=== PATIENT | female | born 1935 | race African-American/Black ===

== ENCOUNTER 2016-11-28 12:04 | Emergency (ER) | payer MEDICAID, OTHER ==
[~2016-11-28] VITALS: Ht 170.2 cm; Wt 90.7 kg
[2016-11-28 12:03] VITALS: BP 181/77
[~2016-11-28 12:04] MED LIST: ACETAMINOPHEN-1 EAC1 ORAL; ACTOS45 MG ORAL; AGGRENOX 25 MG1 EACH ORAL; AGGRENOX1 CAP ORAL; AMBIEN5 MG ORAL; ASCORBIC ACID500 MG ORAL; BENAZEPRIL HCL40 MG ORAL; CARAFATE1 G1 ORAL; CRESTOR10 M1 ORAL; DOCUSATE SODIU100 MG ORAL; FOLIC ACID1 MG ORAL; GLIMEPIRIDE2 MG ORAL; GLUCOPHAGE1000 MG ORAL; LEVEMIR FL100 UNIT/1 SUBQ; MIRALAX17 G2 ORAL; NEURONTIN100 MG ORAL; NORVASC10 MG ORAL; NOVOLOG100 UNIT/3 SUBQ; PANTOPRAZOLE SO20 MG ORAL; POTASSIUM99 M2 PO; REGLAN5 MG PO; RENA-VITE RX T1 EAC1 PO; TRAMADOL HCL50 MG ORAL
[2016-11-28] MEDS ORDERED: MECLIZINE HCL25 MG ORAL (12:12)
[2016-11-28] MEDS ORDERED: CALCIUM 500 +1 EAC6 PO (12:12)
[2016-11-28] MEDS ORDERED: HUMALOG100 UNIT/4 SUBQ (12:12)
[2016-11-28] MEDS ORDERED: CRANBERRY400 MG PO (12:12)
[2016-11-28] MEDS ORDERED: AGGRENOX1 CAP ORAL (12:12)
[2016-11-28] MEDS ORDERED: FERROUS SULFAT325 MG ORAL (12:12)
[2016-11-28] MEDS ORDERED: GERI-KOT8.6 MG PO (12:12)
[2016-11-28] MEDS ORDERED: LEVEMIR100 UNIT/1 SUBQ (12:12)
[2016-11-28] MEDS ORDERED: CATAPRES0.1 MG ORAL (12:12)
[2016-11-28] MEDS ORDERED: ALUM-MAG HYDRO360 ML PO (12:13)
[2016-11-28] MEDS ORDERED: MIRALAX17 G2 ORAL (12:13)
[2016-11-28 12:14] VITALS: BP 163/58
[2016-11-28 13:00] VITALS: BP 143/54
[2016-11-28 13:09] VITALS: BP 143/54
--- NOTE | 2016-11-30 07:39 | Emergency Room Report ---
History of Present Illness General Chief Complaint: Hypertension Source: Patient, Medical Record Present Illness HPI [id number] BIBEMS from [facility] for asymptomatic elevated BP. Patient has known HTN At facility, BP allegedly >200/100 Was given 0.1mg clonidine then sent to ED Here, BP is 150/80 Patient herself has no complaints Denies headache, chest pain, flank pain, abd pain, fever/chills, urinary complaints Allergies: Coded Allergies: PENICILLINS (Unverified Allergy, Mild, 12/04/12) Patient History Past Medical History: see triage record, old chart reviewed, HTN Past Surgical History: none Pertinent Family History: none Social History: Denies: alcohol use, drug use, smoking Now: No Immunizations: UTD Reviewed Nursing Documentation: PMH: Agreed, PSxH: Agreed Nursing Documentation-PMH Past Medical History: No History, Except For Hx Cardiac Problems: Yes Hx Hypertension: Yes Hx Diabetes: Yes Hx Cancer: No Hx Gastrointestinal Problems: Yes Hx Neurological Problems: Yes Review of Systems All Other Systems: negative except mentioned in HPI Physical Exam Vital Signs Date Time Temp Pulse Resp B/P Pulse Ox O2 Delivery O2 Flow Rate FiO2 11/28/16 11:58 97.9 67 20 181/77 100 Room Air Sp02 EP Interpretation: reviewed, normal General Appearance: normal inspection, well appearing, no apparent distress, alert, GCS 15, non-toxic Head: normocephalic, atraumatic Eyes: bilateral eye EOMI, bilateral eye PERRL ENT: normal ENT inspection, hearing grossly normal, normal voice Neck: normal inspection, full range of motion, supple, no bony tend Respiratory: normal inspection, lungs clear, normal breath sounds, no respiratory distress, no retraction, no wheezing Cardiovascular #1: regular rate, rhythm, no edema Gastrointestinal: normal inspection, normal bowel sounds, non tender, soft, no guarding, no hernia Genitourinary: no CVA tenderness Musculoskeletal: normal inspection, back normal, normal range of motion, Ankita' s Sign negative Neurologic: normal inspection, alert, oriented x3, responsive, centrifugal drier operator III-XII nml as tested, motor strength/tone normal, speech normal Psychiatric: normal inspection, judgement/insight normal, mood/affect normal Skin: normal inspection, normal color, no rash Lymphatic: normal inspection Medical Decision Making Diagnostic Impression: Primary Impression: Hypertension Qualified Codes: I10 - Essential (primary) hypertension ER Course Asymptomatic HTN - VS showed improved and maintained normal BP here after SNF gave clonidine - Patient is asymptomatic - Low suspicion for acute CVA, HI or other signs of end-organ damage at this time - Patient does not warrant additional lab, imaging, or admission for single elevation/spike of known HTN at this time - DC back to SNF - Informed PMD Dr Mesa patient going back to SNF for outpatient management Last Vital Signs Date Time Temp Pulse Resp B/P Pulse Ox O2 Delivery O2 Flow Rate FiO2 11/28/16 13:09 97.9 66 16 143/54 100 Room Air Status: improved Disposition: XFER SNF Condition: Improved Referrals: Krzysztof Schneider MD (PCP) Additional Instructions: - BP is 160/63 - Follow up with primary care doctor for management of asymptomatic HTN OSBALDO GARCIA M.D. Nov 30, 2016 07:39
== END 2016-11-28 13:09 ==
LOC: EDBD 12:04 → EMR 12:20
DX: I10 Essential (primary) hypertension (principal); E11.9 Type 2 diabetes mellitus without complications; Z88.0 Allergy status to penicillin
CPT/HCPCS: 99283

== ENCOUNTER 2018-03-08 09:50 | Inpatient (IN) | payer MEDICARE, MEDICAID ==
[~2018-03-08] VITALS: Ht 177.8 cm; Wt 82.1 kg
[2018-03-08] VITALS (25 sets, daily range): BP systolic 66–124; BP diastolic 32–60
[~2018-03-08 09:50] MED LIST changes: +ALUM-MAG HYDRO360 ML PO; +CALCIUM 500 +1 EAC6 PO; +CARAFATE1 G1 GT; -CARAFATE1 G1 ORAL; +CATAPRES0.1 MG GT; +CRANBERRY400 MG PO; +FERROUS SULFAT325 MG ORAL; +GERI-KOT8.6 MG PO; +HUMALOG100 UNIT/4 SUBQ; +LEVEMIR100 UNIT/1 SUBQ; +MECLIZINE HCL25 MG ORAL; +NEURONTIN100 MG GT; -NEURONTIN100 MG ORAL; +NORVASC10 MG GT; -NORVASC10 MG ORAL; +PANTOPRAZOLE SO20 MG GT; -PANTOPRAZOLE SO20 MG ORAL
[2018-03-08] MEDS: Cefepime HCl 1 GM in NS 55 ML IV SCH ×2 (10:11→10:13)
--- NOTE | 2018-03-08 10:13 | Emergency Room Report ---
History of Present Illness General Chief Complaint: Altered Level of Consciousness Source: Medical Record, EMS Present Illness HPI Patient presents via EMS. Hot, hypotensive and tachypnea. Has shaver. Ill for 1 day. No vomiting. Fluid bolus in field with some improvement. Patient full code. Has PEG and indwelling shaver. No other history available. Was seen in November 2016. Allergies: Coded Allergies: PENICILLINS (Unverified Allergy, Mild, 12/04/12) Patient History Limited by: medical condition Past Medical History: see triage record, old chart reviewed Past Surgical History: charlene, hysterectomy, other - cataract surgery Social History Narrative at [facility] Reviewed Nursing Documentation: PMH: Agreed; PSxH: Agreed Nursing Documentation-PM Past Medical History: No History, Except For Hx Cardiac Problems: No - hypokalemia, dehydration, hyperlipidemia Hx Hypertension: Yes Hx Diabetes: Yes Hx Cancer: No Hx Gastrointestinal Problems: No - dysphagia, g-tube Hx Dialysis: No - chronic kidney failure Hx Neurological Problems: No - muscle weakness, encephalopathy 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 Hx Seizures: Yes Review of Systems All Other Systems: limited Physical Exam Vital Signs Date Time Temp Pulse Resp B/P (MAP) Pulse Ox O2 Delivery O2 Flow Rate FiO2 03/08/18 09:50 104 22 105/50 100 Non-Rebreather 15.0 Sp02 EP Interpretation: reviewed, normal General Appearance: moderate distress, lethargic Eyes: bilateral eye normal inspection, bilateral eye PERRL ENT: dry mucus membranes - dry mucoid buildup in mouth Respiratory: respiratory distress, accessory muscle use, other - tachypnea with poor tidal volume Cardiovascular #1: tachycardia Cardiovascular #2: 2+ radial (L) Gastrointestinal: decreased bowel sounds, scaphoid Genitourinary: other - shaver with pus Musculoskeletal: other - atrophy Neurologic: other - minimally responsive but opens eyes to voice Psychiatric: other - stupor Skin: warm/dry - hot Procedures Critical Care Time Critical Care Time Total Critical Care Time: 120 min bedside evaluation and treatment excludes procedures (EKG, intubation and CVP). Reason for critical care: severe sepsis, respiratory failure, hypotension Possible complications: hypotension, hypertension, CO, shock, arrhythmias, metabolic acidosis, end organ damage, respiratory failure. Interventions: intubation, CVP, pressors, fluid resuscitation, antibiotics, CVP , discussion of level of care with family, vent changes Course:Patient with ALOC and hot. Fluid resuscitation begun. Intubated as pre- resp arrest. Antibiotics begun. Discussed level of care with family Still hypotensive after initial fluid resuscitation - CVP and possible pressors. Levophed begun. Responding with adequate BP. Improved work of breathing with vent. Admit ICU. Consultations: nursing staff, EMS, family, RT, admitting MD, critical care MD Performed by: Dr. Kraft Tolerated well condition = critical Central Line Central Line : Consent: Emergent Central Line Lumen: triple Maximal Sterile Barrier Tech: yes cap, yes mask, yes sterile gown, yes sterile gloves, yes large sterile sheet, yes hand hygiene, yes chlorhexidine prep Central Line Postion: femoral (R) Anesthesia: Lidocaine Central Line Post Position: sutured, good blood return Attempts: One Patient Tolerated: Well Complications: None Progress Ultrasound EBL 3 ml Intubation Intubation : Consent: Emergent Intubation Method: orotracheal Tube Size (cm): 7.5 Medications: Other - none Breath Sounds after Intubation: equal Intubation Complications: no complications Post Intubation Xray: Yes Attempts: One Patient Tolerated: Well Complications: None Medical Decision Making Diagnostic Impression: Primary Impression: Severe sepsis Additional Impressions: UTI (urinary tract infection) Qualified Codes: T83.511A - Infection and inflammatory reaction due to indwelling urethral catheter, initial encounter; N39.0 - Urinary tract infection , site not specified Respiratory failure Qualified Codes: J96.00 - Acute respiratory failure, unspecified whether with hypoxia or hypercapnia NSTEMI (non-ST elevated myocardial infarction) Renal failure (ARF), acute on chronic Qualified Codes: N17.9 - Acute kidney failure, unspecified; N18.4 - Chronic kidney disease, stage 4 (severe) PEG (percutaneous endoscopic gastrostomy) status Anemia Qualified Codes: D64.9 - Anemia, unspecified Hyperglycemia Metabolic acidosis ER Course Patient presents with dyspnea, turbid urine fever and respiratory distress. The patient is obviously septic. Due to the amount of work of breathing at this time I the patient needs to be intubated immediately. In addition to that sepsis resuscitation will be started. Other parts of differential are acute myocardial infarction, volume depletion, pneumonia and UTI. The patient will have 30kg instills and also antibiotics appropriate to cover both lung and urine. EKG without injury. CXR clear with intubation. CBC with elevated WBC, anemia. CMP with renal failure. Troponin +. Elevated BNP. Transient improvement with fluids and intubation. Discussion with family regarding level of care. Want everything done. ABG with metabolic acidosis. Vent O2 deareased. After bolus still hypotensive. CVP begun. Levophed started. 13:20 (Sepsis re -evaluation) Improved BP. Discussed with Dr. Ortiz, Dr. Gan. Admit ICU. Laboratory Tests Test 03/08/18 10:00 03/08/18 11:04 03/08/18 11:46 03/08/18 16:00 White Blood Count 14.4 K/UL (4.8-10.8) H Red Blood Count 3.39 M/UL (4.20-5.40) L Hemoglobin 9.1 G/DL (12.0-16.0) L Hematocrit 28.5 % (37.0-47.0) L Mean Corpuscular Volume 84 FL (80-99) Mean Corpuscular Hemoglobin 26.9 PG (27.0-31.0) L Mean Corpuscular Hemoglobin Concent 32.0 G/DL (32.0-36.0) Red Cell Distribution Width 13.7 % (11.6-14.8) Platelet Count 169 K/UL (150-450) Mean Platelet Volume 10.3 FL (6.5-10.1) H Neutrophils (%) (Auto) 80.0 % (45.0-75.0) H Lymphocytes (%) (Auto) 9.1 % (20.0-45.0) L Monocytes (%) (Auto) 10.1 % (1.0-10.0) H Eosinophils (%) (Auto) 0.0 % (0.0-3.0) Basophils (%) (Auto) 0.8 % (0.0-2.0) Prothrombin Time 12.0 SEC (9.30-11.50) H Prothrombin Time INR 1.1 (0.9-1.1) PTT 48 SEC (23-33) H Sodium Level 141 MMOL/L (136-145) Potassium Level 3.5 MMOL/L (3.5-5.1) Chloride Level 109 MMOL/L (98-107) H Carbon Dioxide Level 17 MMOL/L (21-32) L Anion Gap 15 mmol/L (5-15) Blood Urea Nitrogen 126 mg/dL (7-18) H Creatinine 4.3 MG/DL (0.55-1.30) H Estimate Glomerular Filtration Rate mL/min (>60) Glucose Level 296 MG/DL (74-106) H Lactic Acid Level 1.80 mmol/L (0.4-2.0) 2.00 mmol/L (0.4-2.0) Calcium Level 8.4 MG/DL (8.5-10.1) L Total Bilirubin 0.2 MG/DL (0.2-1.0) Aspartate Amino Transferase (AST) 66 U/L (15-37) H Alanine Aminotransferase (ALT) 125 U/L (12-78) H Alkaline Phosphatase 159 U/L (46-116) H Total Creatine Kinase 253 U/L (26-308) Troponin I 0.271 ng/mL (0.000-0.056) 0.437 ng/mL (0.000-0.056) Pro-B-Type Natriuretic Peptide 58814 pg/mL (0-125) H Total Protein 5.9 G/DL (6.4-8.2) L Albumin 1.6 G/DL (3.4-5.0) L Globulin 4.3 g/dL Albumin/Globulin Ratio 0.4 (1.0-2.7) L Lipase 122 U/L (73-393) Arterial Blood pH 7.441 (7.350-7.450) Arterial Blood Partial Pressure CO2 17.6 mmHg (35.0-45.0) *L Arterial Blood Partial Pressure O2 188.8 mmHg (75.0-100.0) H Arterial Blood HCO3 11.7 mmol/L (22.0-26.0) *L Arterial Blood Oxygen Saturation 99.0 % (95-100) Arterial Blood Base Excess -11.0 (-2-2) *L Michael Test Positive Urine Color Brown Urine Appearance Very cloudy Urine pH 5 (4.5-8.0) Urine Specific [place] 1.020 (1.005-1.035) Urine Protein 3+ (NEGATIVE) H Urine Glucose (UA) Negative (NEGATIVE) Urine Ketones Negative (NEGATIVE) Urine Blood 5+ (NEGATIVE) H Urine Nitrite Negative (NEGATIVE) Urine Bilirubin Negative (NEGATIVE) Urine Urobilinogen Normal MG/DL (0.0-1.0) Urine Leukocyte Esterase 3+ (NEGATIVE) H Urine RBC 40-60 /HPF (0 - 2) H Urine WBC Tntc /HPF (0 - 2) H Urine Squamous Epithelial Cells Occasional /LPF Urine Transitional Epithelial Cells /LPF (NONE) Urine Bacteria Many /HPF (NONE) H Hemoglobin A1c 9.3 % (4.3-6.0) H Thyroid Stimulating Hormone (TSH) 1.261 uiU/mL (0.358-3.740) Cortisol Pending Test 03/08/18 17:39 Arterial Blood pH 7.390 (7.350-7.450) Arterial Blood Partial Pressure CO2 24.5 mmHg (35.0-45.0) *L Arterial Blood Partial Pressure O2 156.2 mmHg (75.0-100.0) H Arterial Blood HCO3 14.8 mmol/L (22.0-26.0) *L Arterial Blood Oxygen Saturation 98.5 % (95-100) Arterial Blood Base Excess -8.7 (-2-2) L Michael Test Positive EKG Diagnostic Results Rate: tachycardiac Rhythm: other - a fib ST Segments: no acute changes - RBBB Rhythm Strip Diag. Results EP Interpretation: yes Rhythm: no PVC's, no ectopy, other - A fib rapid rate Chest X-Ray Diagnostic Results Chest X-Ray Diagnostic Results : Chest X-Ray Ordered: Yes # of Views/Limited/Complete: 1 View Indication: Other EP Interpretation: Yes Interpretation: no consolidation, no effusion, no pneumothorax, other - ET good placement Impression: Other Electronically Signed by: Brian Kraft MD Last Vital Signs Date Time Temp Pulse Resp B/P (MAP) Pulse Ox O2 Delivery O2 Flow Rate FiO2 03/08/18 09:50 104 22 105/50 100 Non-Rebreather 15.0 Status: improved Disposition: ADMITTED INPATIENT Condition: Critical Brian Kraft MD Mar 08, 2018 10:13
[2018-03-08 10:21] LABS: BASOPHILS % (AUTO) 0.8 % (0.0-2.0); HEMATOCRIT 28.5 % (37.0-47.0); HEMOGLOBIN 9.1 G/DL (12.0-16.0); LYMPHOCYTES % (AUTO) 9.1 % (20.0-45.0); MEAN CORPUSCULAR VOLUME 84 FL (80-99); MONOCYTES % (AUTO) 10.1 % (1.0-10.0); PLATELET COUNT 169 K/UL (150-450); RED BLOOD COUNT 3.39 M/UL (4.20-5.40); RED CELL DISTRIBUTION WIDTH 13.7 % (11.6-14.8); WHITE BLOOD COUNT 14.4 K/UL (4.8-10.8)
[2018-03-08 10:26] LABS: INR 1.1 (0.9-1.1)
[2018-03-08] MEDS ORDERED: ATORVASTATIN CA20 MG GT (10:42)
[2018-03-08] MEDS ORDERED: PRO-STAT LIQUID30 ML GT (10:42)
[2018-03-08] MEDS ORDERED: NEPRO CARB STE237 ML GT (10:42)
[2018-03-08] MEDS ORDERED: COZAAR50 MG ORAL (10:42)
[2018-03-08] MEDS ORDERED: ASPIR 8181 MG GT (10:42)
[2018-03-08] MEDS ORDERED: ACETAMINOPHEN325 M1 GT (10:42)
[2018-03-08] MEDS ORDERED: LEVETIRACE100 MG/1 M GT (10:42)
[2018-03-08] MEDS ORDERED: MULTIVITAMINS1 EA13 GT (10:42)
[2018-03-08] MEDS ORDERED: METOPROLOL TART50 MG ORAL (10:42)
[2018-03-08 11:01] LABS: ANION GAP 15 mmol/L (5-15); BLOOD UREA NITROGEN 126 mg/dL (7-18); CALCIUM 8.4 MG/DL (8.5-10.1); CARBON DIOXIDE 17 MMOL/L (21-32); CHLORIDE 109 MMOL/L (98-107); CREATININE 4.3 MG/DL (0.55-1.30); POTASSIUM 3.5 MMOL/L (3.5-5.1); SODIUM 141 MMOL/L (136-145)
--- NOTE | 2018-03-08 11:01 | Diagnostic Imaging Report ---
Indication: Dyspnea Comparison: 12/04/2012 A single view chest radiograph was obtained. Findings: Interstitial densities are present at the lung bases likely atelectasis. Mild degree of interstitial edema not excluded. The heart is mildly enlarged. Endotracheal tube is in good position above the isaac. Bones are osteopenic. IMPRESSION: Mild basilar atelectasis. Prominent interstitial markings and vascularity. Some degree of mild CHF not excluded. Correlate clinically. Endotracheal tube in good position
[2018-03-08 11:13] LABS: ALANINE AMINOTRANSFERASE 125 U/L (12-78); ALBUMIN 1.6 G/DL (3.4-5.0); ALBUMIN/GLOBULIN RATIO 0.4 (1.0-2.7); ALKALINE PHOSPHATASE 159 U/L (46-116); ASPARTATE AMINO TRANSFERASE 66 U/L (15-37); BILIRUBIN,TOTAL 0.2 MG/DL (0.2-1.0); CREATINE KINASE 253 U/L (26-308)
[2018-03-08 11:55] LABS: APPEARANCE,URINE VERY CLOUDY; BILIRUBIN, URINE NEGATIVE (NEGATIVE); COLOR,URINE BROWN; GLUCOSE, URINE (UA) NEGATIVE (NEGATIVE); KETONES,URINE NEGATIVE (NEGATIVE); LEUKOCYTE ESTERASE ,URINE 3+ (NEGATIVE); NITRITE,URINE NEGATIVE (NEGATIVE); PH,URINE 5 (4.5-8.0); PROTEIN,URINE 3+ (NEGATIVE); UROBILINOGEN,URINE NORMAL MG/DL (0.0-1.0)
[2018-03-08] MEDS: Vancomycin 1 GM in NS 275 ML IV ONE ×2 (13:16→14:10)
--- NOTE | 2018-03-08 15:01 | Pulmonolgy Critical Care Note ---
Critical Care - Asmt/Plan Problems: (1) shelter resident (2) Anemia (3) PEG (percutaneous endoscopic gastrostomy) status (4) Seizure disorder (5) CKD (chronic kidney disease) (6) MARK (acute kidney injury) (7) Severe sepsis (8) UTI (urinary tract infection) (9) Respiratory failure (10) NSTEMI (non-ST elevated myocardial infarction) Assessment/Plan: ASSESSMENT: * SIRS/SEPSIS * Shock, likely septic * VDRF * MSOF * MARK on CKD * Abnormal LFT's * NSTEMI, likely demand ischemia * Mild PVC on CXR & elevated BNP but clinically appears dry * ? ADHF * Sz DO * NHR * Bedbound @ baseline * Anemia * S/P GT PLAN: * Admit to ICU * Continue ventilatory support, AC 14 VC 450 PEEP 5, FiO2 40 * Check ABG, adjust vent accordingly * PRN HHN's * Titrate NE to keep MAP > 60 * Monitor volumes, gentle IVF hydration * Monitor renal function, may need HD * Trend ECG/trop * TTE * Cardiology evaluation * Start Vancomycin & Zosyn, F/U Cx's * F/U CX's * Check cortisol, TSH * NPO, hold TF's * Reconcile home meds * Continue AED's * DVT Px: Hep SQ * FC CCT 100 Critical Care - Objective Last 24 Hour Vital Signs Date Time Temp Pulse Resp B/P (MAP) Pulse Ox O2 Delivery O2 Flow Rate FiO2 03/08/18 13:40 104/58 03/08/18 13:40 98.3 101 18 104/58 100 Mechanical Ventilator 15.0 40 03/08/18 13:35 84/47 03/08/18 13:30 98.3 101 18 85/48 100 Mechanical Ventilator 15.0 40 03/08/18 13:30 85/48 03/08/18 13:25 75/41 03/08/18 13:12 107 17 40 03/08/18 13:00 98.0 96 16 86/42 100 Mechanical Ventilator 15.0 45 03/08/18 12:30 98.0 101 16 92/34 100 Mechanical Ventilator 15.0 45 03/08/18 11:57 98.0 101 16 86/42 100 Mechanical Ventilator 15.0 45 03/08/18 11:53 106 16 45 03/08/18 10:54 98 16 93/35 100 Mechanical Ventilator 15.0 50 03/08/18 10:24 121 16 Mechanical Ventilator 50 03/08/18 10:18 111 16 50 03/08/18 10:05 15.0 50 03/08/18 10:00 111 16 Mechanical Ventilator 15.0 50 03/08/18 10:00 111 16 66/32 100 Mechanical Ventilator 15.0 50 03/08/18 09:50 104 22 105/50 100 Non-Rebreather 15.0 Status: other - Intubated, sedated Condition: critical HEENT: atraumatic, normocephalic, other - ETT Lungs: rales - @ bases, o/w CTA Heart: HR/BP unstable Abdomen: soft, non-tender, active bowel sounds, feeding tube Extremities: no C/C/E Micro: Microbiology Date/Time Source Procedure Growth Status 03/08/18 10:20 Rectal Mucosa Received Blood Sugars: BS controlled Critical Care - Subjective ROS Limited/Unobtainable: Yes ICU Day: 1 Intubation Day: 1 Interval Events: 82 F NHR h/o Sz DO, bedbound @ baseline, GT, CKD BIB EMS with AMS Upon arrival to ED BP was borderline and marked respiratory distress, intubated by ERMD W/U thus far suggestive of UROSEPSIS with MSOF ---> MARK on CKD, abnl LFT's and NSTEMI D/W grand-daughter @ bedside, family wants all aggressive measures Condition: critical IV Access: central - R fem CVC EKG Rhythm: Sinus Rhythm FI02: 40 Vent Support Breath Rate: 16 Vent Support Mode: AC Vent Tidal Volume: 550 Sputum Amount: Scant PEEP: 0.0 PIP: 28 Subjective: KARRIE CXR: Mild PVC ET Position: 23 Labs: Laboratory Tests Test 03/08/18 10:00 03/08/18 11:04 03/08/18 11:46 White Blood Count 14.4 K/UL (4.8-10.8) H Red Blood Count 3.39 M/UL (4.20-5.40) L Hemoglobin 9.1 G/DL (12.0-16.0) L Hematocrit 28.5 % (37.0-47.0) L Mean Corpuscular Volume 84 FL (80-99) Mean Corpuscular Hemoglobin 26.9 PG (27.0-31.0) L Mean Corpuscular Hemoglobin Concent 32.0 G/DL (32.0-36.0) Red Cell Distribution Width 13.7 % (11.6-14.8) Platelet Count 169 K/UL (150-450) Mean Platelet Volume 10.3 FL (6.5-10.1) H Neutrophils (%) (Auto) 80.0 % (45.0-75.0) H Lymphocytes (%) (Auto) 9.1 % (20.0-45.0) L Monocytes (%) (Auto) 10.1 % (1.0-10.0) H Eosinophils (%) (Auto) 0.0 % (0.0-3.0) Basophils (%) (Auto) 0.8 % (0.0-2.0) Prothrombin Time 12.0 SEC (9.30-11.50) H Prothromb Time International Ratio 1.1 (0.9-1.1) Activated Partial Thromboplast Time 48 SEC (23-33) H Sodium Level 141 MMOL/L (136-145) Potassium Level 3.5 MMOL/L (3.5-5.1) Chloride Level 109 MMOL/L (98-107) H Carbon Dioxide Level 17 MMOL/L (21-32) L Anion Gap 15 mmol/L (5-15) Blood Urea Nitrogen 126 mg/dL (7-18) H Creatinine 4.3 MG/DL (0.55-1.30) H Estimat Glomerular Filtration Rate mL/min (>60) Glucose Level 296 MG/DL (74-106) H Lactic Acid Level 1.80 mmol/L (0.4-2.0) Calcium Level 8.4 MG/DL (8.5-10.1) L Total Bilirubin 0.2 MG/DL (0.2-1.0) Aspartate Amino Transf (AST/SGOT) 66 U/L (15-37) H Alanine Aminotransferase (ALT/SGPT) 125 U/L (12-78) H Alkaline Phosphatase 159 U/L (46-116) H Total Creatine Kinase 253 U/L (26-308) Troponin I 0.271 ng/mL (0.000-0.056) Pro-B-Type Natriuretic Peptide 88465 pg/mL (0-125) H Total Protein 5.9 G/DL (6.4-8.2) L Albumin 1.6 G/DL (3.4-5.0) L Globulin 4.3 g/dL Albumin/Globulin Ratio 0.4 (1.0-2.7) L Lipase 122 U/L (73-393) Arterial Blood pH 7.441 (7.350-7.450) Arterial Blood Partial Pressure CO2 17.6 mmHg (35.0-45.0) *L Arterial Blood Partial Pressure O2 188.8 mmHg (75.0-100.0) H Arterial Blood HCO3 11.7 mmol/L (22.0-26.0) *L Arterial Blood Oxygen Saturation 99.0 % (95-100) Arterial Blood Base Excess -11.0 (-2-2) *L Michael Test Positive Urine Color Brown Urine Appearance Very cloudy Urine pH 5 (4.5-8.0) Urine Specific [place] 1.020 (1.005-1.035) Urine Protein 3+ (NEGATIVE) H Urine Glucose (UA) Negative (NEGATIVE) Urine Ketones Negative (NEGATIVE) Urine Blood 5+ (NEGATIVE) H Urine Nitrite Negative (NEGATIVE) Urine Bilirubin Negative (NEGATIVE) Urine Urobilinogen Normal MG/DL (0.0-1.0) Urine Leukocyte Esterase 3+ (NEGATIVE) H Urine RBC 40-60 /HPF (0 - 2) H Urine WBC Tntc /HPF (0 - 2) H Urine Squamous Epithelial Cells Occasional /LPF Urine Transitional Epithelial Cells /LPF (NONE) Urine Bacteria Many /HPF (NONE) H Javon Gan MD Mar 08, 2018 15:00
[2018-03-08] MEDS: D5NS 1,000 ML IV SCH (15:06)
[2018-03-08] MEDS ORDERED: Acetaminophen 650mg/20.3ml NG PRN (15:15)
[2018-03-08] MEDS ORDERED: Albuterol/Ipratropium 3ml neb HHN PRN (15:15)
[2018-03-08] MEDS: NovoLOG Insulin Flexpen SUBQ SCH ×2 (17:38→20:49)
[2018-03-08] MEDS ORDERED: Aggrenox Cap ORAL SCH (18:00)
--- NOTE | 2018-03-08 19:16 | Cardiology Progress Note ---
Assessment/Plan Assessment/Plan The patient is seen and examined, full consult note will be dictated shortly. Objective Last 24 Hour Vital Signs Date Time Temp Pulse Resp B/P (MAP) Pulse Ox O2 Delivery O2 Flow Rate FiO2 03/08/18 19:07 77 16 30 03/08/18 18:52 Mechanical Ventilator 03/08/18 16:42 86 16 40 03/08/18 15:40 97.8 112 17 102/45 100 Mechanical Ventilator 15.0 40 03/08/18 15:40 96 17 40 03/08/18 15:22 97.8 112 15 102/45 100 Mechanical Ventilator 15.0 40 03/08/18 15:06 102/45 03/08/18 14:38 96 17 40 03/08/18 14:30 98.3 110 20 108/60 100 Mechanical Ventilator 15.0 40 03/08/18 13:40 104/58 03/08/18 13:40 98.3 101 18 104/58 100 Mechanical Ventilator 15.0 40 03/08/18 13:35 84/47 03/08/18 13:30 98.3 101 18 85/48 100 Mechanical Ventilator 15.0 40 03/08/18 13:30 85/48 03/08/18 13:25 75/41 03/08/18 13:12 107 17 40 03/08/18 13:00 98.0 96 16 86/42 100 Mechanical Ventilator 15.0 45 03/08/18 12:30 98.0 101 16 92/34 100 Mechanical Ventilator 15.0 45 03/08/18 11:57 98.0 101 16 86/42 100 Mechanical Ventilator 15.0 45 03/08/18 11:53 106 16 45 03/08/18 10:54 98 16 93/35 100 Mechanical Ventilator 15.0 50 03/08/18 10:24 121 16 Mechanical Ventilator 50 03/08/18 10:18 111 16 50 03/08/18 10:05 15.0 50 03/08/18 10:00 111 16 Mechanical Ventilator 15.0 50 03/08/18 10:00 111 16 66/32 100 Mechanical Ventilator 15.0 50 03/08/18 09:50 104 22 105/50 100 Non-Rebreather 15.0 Laboratory Tests Test 03/08/18 10:00 03/08/18 11:04 03/08/18 11:46 03/08/18 16:00 White Blood Count 14.4 K/UL (4.8-10.8) H Red Blood Count 3.39 M/UL (4.20-5.40) L Hemoglobin 9.1 G/DL (12.0-16.0) L Hematocrit 28.5 % (37.0-47.0) L Mean Corpuscular Volume 84 FL (80-99) Mean Corpuscular Hemoglobin 26.9 PG (27.0-31.0) L Mean Corpuscular Hemoglobin Concent 32.0 G/DL (32.0-36.0) Red Cell Distribution Width 13.7 % (11.6-14.8) Platelet Count 169 K/UL (150-450) Mean Platelet Volume 10.3 FL (6.5-10.1) H Neutrophils (%) (Auto) 80.0 % (45.0-75.0) H Lymphocytes (%) (Auto) 9.1 % (20.0-45.0) L Monocytes (%) (Auto) 10.1 % (1.0-10.0) H Eosinophils (%) (Auto) 0.0 % (0.0-3.0) Basophils (%) (Auto) 0.8 % (0.0-2.0) Prothrombin Time 12.0 SEC (9.30-11.50) H Prothromb Time International Ratio 1.1 (0.9-1.1) Activated Partial Thromboplast Time 48 SEC (23-33) H Sodium Level 141 MMOL/L (136-145) Potassium Level 3.5 MMOL/L (3.5-5.1) Chloride Level 109 MMOL/L (98-107) H Carbon Dioxide Level 17 MMOL/L (21-32) L Anion Gap 15 mmol/L (5-15) Blood Urea Nitrogen 126 mg/dL (7-18) H Creatinine 4.3 MG/DL (0.55-1.30) H Estimat Glomerular Filtration Rate mL/min (>60) Glucose Level 296 MG/DL (74-106) H Lactic Acid Level 1.80 mmol/L (0.4-2.0) 2.00 mmol/L (0.4-2.0) Calcium Level 8.4 MG/DL (8.5-10.1) L Total Bilirubin 0.2 MG/DL (0.2-1.0) Aspartate Amino Transf (AST/SGOT) 66 U/L (15-37) H Alanine Aminotransferase (ALT/SGPT) 125 U/L (12-78) H Alkaline Phosphatase 159 U/L (46-116) H Total Creatine Kinase 253 U/L (26-308) Troponin I 0.271 ng/mL (0.000-0.056) 0.437 ng/mL (0.000-0.056) Pro-B-Type Natriuretic Peptide 94373 pg/mL (0-125) H Total Protein 5.9 G/DL (6.4-8.2) L Albumin 1.6 G/DL (3.4-5.0) L Globulin 4.3 g/dL Albumin/Globulin Ratio 0.4 (1.0-2.7) L Lipase 122 U/L (73-393) Arterial Blood pH 7.441 (7.350-7.450) Arterial Blood Partial Pressure CO2 17.6 mmHg (35.0-45.0) *L Arterial Blood Partial Pressure O2 188.8 mmHg (75.0-100.0) H Arterial Blood HCO3 11.7 mmol/L (22.0-26.0) *L Arterial Blood Oxygen Saturation 99.0 % (95-100) Arterial Blood Base Excess -11.0 (-2-2) *L Michael Test Positive Urine Color Brown Urine Appearance Very cloudy Urine pH 5 (4.5-8.0) Urine Specific [place] 1.020 (1.005-1.035) Urine Protein 3+ (NEGATIVE) H Urine Glucose (UA) Negative (NEGATIVE) Urine Ketones Negative (NEGATIVE) Urine Blood 5+ (NEGATIVE) H Urine Nitrite Negative (NEGATIVE) Urine Bilirubin Negative (NEGATIVE) Urine Urobilinogen Normal MG/DL (0.0-1.0) Urine Leukocyte Esterase 3+ (NEGATIVE) H Urine RBC 40-60 /HPF (0 - 2) H Urine WBC Tntc /HPF (0 - 2) H Urine Squamous Epithelial Cells Occasional /LPF Urine Transitional Epithelial Cells /LPF (NONE) Urine Bacteria Many /HPF (NONE) H Hemoglobin A1c 9.3 % (4.3-6.0) H Thyroid Stimulating Hormone (TSH) 1.261 uiU/mL (0.358-3.740) Cortisol Pending Test 03/08/18 17:39 Arterial Blood pH 7.390 (7.350-7.450) Arterial Blood Partial Pressure CO2 24.5 mmHg (35.0-45.0) *L Arterial Blood Partial Pressure O2 156.2 mmHg (75.0-100.0) H Arterial Blood HCO3 14.8 mmol/L (22.0-26.0) *L Arterial Blood Oxygen Saturation 98.5 % (95-100) Arterial Blood Base Excess -8.7 (-2-2) L Michael Test Positive Microbiology Date/Time Source Procedure Growth Status 03/08/18 10:20 Rectal Mucosa Received Everett Tomas MD Mar 08, 2018 19:16
--- NOTE | 2018-03-08 20:04 | Consultation ---
History of Present Illness General Date patient seen: Mar 08, 2018 Chief Complaint: Altered Level of Consciousness Present Illness HPI 82 year old female with multiple medical comorbidities, trach, peg, [facility] resident presented to ED with overt sepsis. SOB, tachycardia, respiratory failure, cloudy urine. Intubated, on vent support, central line placed, admitted to ICU. On admission noted to have leukocytosis, elevated lfts, sacral wound. surgery called to evaluate and assist with care / management. patient seen, chart reviewed, patient examined. unable to provide history given medical condition Allergies: Coded Allergies: PENICILLINS (Unverified Allergy, Mild, 12/04/12) Medication History Scheduled Acetaminophen With Codeine (T#3) (Tylenol #3 Tab*), 1 TAB ORAL PRN, (Reported) Amino Acids/Protein Hydrolys (Pro-Stat Liquid), 30 ML GT DAILY, (Reported) Amlodipine Besylate (Norvasc), 5 MG GT DAILY, (Reported) Aspirin* (Aspir 81*), 81 MG GT DAILY, (Reported) Aspirin/Dipyridamole* (Aggrenox 25 Mg-200 Mg Capsule*), 1 CAP ORAL TWICE A DAY, (Reported) Atorvastatin Calcium* (Atorvastatin Calcium*), 10 MG GT BEDTIME, (Reported) Calcium Carbonate/Vitamin D3 (Calcium 500 + Vit D 200 Caplet), 1 EACH PO BID, ( Reported) Clonidine Hcl* (Catapres*), 0.1 MG GT EVERY 6 HOURS, (Reported) Dipyridamole/Aspirin (Aggrenox 25 mg-200 mg Capsule), 1 CAP ORAL TWICE A DAY, ( Reported) Docusate Sodium* (Docusate Sodium*), 100 MG ORAL TWICE A DAY, (Reported) Ferrous Sulfate* (Ferrous Sulfate*), 325 MG ORAL TWICE A DAY, (Reported) Gabapentin* (Neurontin*), 100 MG GT THREE TIMES A DAY, (Reported) Insulin Detemir (Levemir Flexpen), 12 UNIT SUBQ Q12HR, (Reported) Insulin Detemir (Levemir), 30 SUBQ BEDTIME, (Reported) Levetiracetam* (Levetiracetam*), 7.5 ML GT BID, (Reported) Losartan Potassium* (Cozaar*), 50 MG ORAL TWICE A DAY, (Reported) Meclizine Hcl* (Meclizine*), 25 MG ORAL THREE TIMES A DAY, (Reported) Metoprolol Tartrate* (Metoprolol Tartrate*), 50 MG ORAL EVERY 12 HOURS, ( Reported) Multivitamin with Minerals (Multivitamins with Minerals), 1 TAB GT DAILY, ( Reported) Nut.tx.impaired Renal Fxn,Soy (Nepro Carb Steady), 40 ML GT Q12HR, (Reported) Pantoprazole (Pantoprazole), 40 MG GT DAILY, (Reported) Polyethylene Glycol 3350* (Miralax*), 17 GM ORAL HS, (Reported) Polyethylene Glycol 3350* (Miralax*), 17 GM ORAL DAILY, (Reported) Potassium (Potassium), 8 MEQ PO DAILY, (Reported) Sucralfate* (Carafate*), 1 GM GT TID, (Reported) Vit B Cmplx 3/Fa/Vit C/Biotin (Sasha-Hannah Rx Tablet), 1 EACH PO DAILY, (Reported) Scheduled PRN Acetaminophen* (Acetaminophen 325MG Tablet*), 650 MG GT Q4H PRN for Pain Scale ( 3-5), (Reported) Zolpidem Tartrate* (Ambien*), 5 MG ORAL BEDTIME PRN for Insomnia, (Reported) Miscellaneous Medications Cranberry (Cranberry), 450 MG PO, (Reported) Insulin Lispro (Humalog), Unknown Dose SUBQ, (Reported) Mag Hydrox/Al Hydrox/Simeth (Alum-Mag Hydroxide-Simeth Liq), 360 ML PO, ( Reported) Sennosides (Patti-Elpidio), 8.6 MG PO, (Reported) Patient History Limited by: medical condition History Provided By: Medical Record, PMD Healthcare decision maker Suad mohamud Resuscitation status Full Code Advanced Directive on File Yes Past Medical/Surgical History Past Medical/Surgical History: (1) Hypertension (2) Sepsis (3) Respiratory failure (4) UTI (urinary tract infection) (5) Severe sepsis (6) NSTEMI (non-ST elevated myocardial infarction) (7) Anemia (8) Seizure disorder (9) CKD (chronic kidney disease) (10) MARK (acute kidney injury) Review of Systems ROS Narrative cannot obtain given medical condition Physical Exam General Appearance: mild distress Lines, tubes and drains: central line HEENT: mucous membranes moist Neck: trach Respiratory/Chest: on vent Cardiovascular/Chest: normal rate Abdomen: feeding tube Genitourinary/Rectal: shaver Extremities: other Skin Exam: warm/dry Neurologic: unresponsiveness Last 24 Hour Vital Signs Date Time Temp Pulse Resp B/P (MAP) Pulse Ox O2 Delivery O2 Flow Rate FiO2 03/08/18 19:56 15.0 30 03/08/18 19:50 Mechanical Ventilator 03/08/18 19:07 77 16 30 03/08/18 18:52 Mechanical Ventilator 03/08/18 16:42 86 16 40 03/08/18 15:40 97.8 112 17 102/45 100 Mechanical Ventilator 15.0 40 03/08/18 15:40 96 17 40 03/08/18 15:22 97.8 112 15 102/45 100 Mechanical Ventilator 15.0 40 03/08/18 15:06 102/45 03/08/18 14:38 96 17 40 03/08/18 14:30 98.3 110 20 108/60 100 Mechanical Ventilator 15.0 40 03/08/18 13:40 104/58 03/08/18 13:40 98.3 101 18 104/58 100 Mechanical Ventilator 15.0 40 03/08/18 13:35 84/47 03/08/18 13:30 98.3 101 18 85/48 100 Mechanical Ventilator 15.0 40 03/08/18 13:30 85/48 03/08/18 13:25 75/41 03/08/18 13:12 107 17 40 03/08/18 13:00 98.0 96 16 86/42 100 Mechanical Ventilator 15.0 45 03/08/18 12:30 98.0 101 16 92/34 100 Mechanical Ventilator 15.0 45 03/08/18 11:57 98.0 101 16 86/42 100 Mechanical Ventilator 15.0 45 03/08/18 11:53 106 16 45 03/08/18 10:54 98 16 93/35 100 Mechanical Ventilator 15.0 50 03/08/18 10:24 121 16 Mechanical Ventilator 50 03/08/18 10:18 111 16 50 03/08/18 10:05 15.0 50 03/08/18 10:00 111 16 Mechanical Ventilator 15.0 50 03/08/18 10:00 111 16 66/32 100 Mechanical Ventilator 15.0 50 03/08/18 09:50 104 22 105/50 100 Non-Rebreather 15.0 Laboratory Tests Test 03/08/18 10:00 03/08/18 11:04 03/08/18 11:46 03/08/18 16:00 White Blood Count 14.4 K/UL (4.8-10.8) H Red Blood Count 3.39 M/UL (4.20-5.40) L Hemoglobin 9.1 G/DL (12.0-16.0) L Hematocrit 28.5 % (37.0-47.0) L Mean Corpuscular Volume 84 FL (80-99) Mean Corpuscular Hemoglobin 26.9 PG (27.0-31.0) L Mean Corpuscular Hemoglobin Concent 32.0 G/DL (32.0-36.0) Red Cell Distribution Width 13.7 % (11.6-14.8) Platelet Count 169 K/UL (150-450) Mean Platelet Volume 10.3 FL (6.5-10.1) H Neutrophils (%) (Auto) 80.0 % (45.0-75.0) H Lymphocytes (%) (Auto) 9.1 % (20.0-45.0) L Monocytes (%) (Auto) 10.1 % (1.0-10.0) H Eosinophils (%) (Auto) 0.0 % (0.0-3.0) Basophils (%) (Auto) 0.8 % (0.0-2.0) Prothrombin Time 12.0 SEC (9.30-11.50) H Prothromb Time International Ratio 1.1 (0.9-1.1) Activated Partial Thromboplast Time 48 SEC (23-33) H Sodium Level 141 MMOL/L (136-145) Potassium Level 3.5 MMOL/L (3.5-5.1) Chloride Level 109 MMOL/L (98-107) H Carbon Dioxide Level 17 MMOL/L (21-32) L Anion Gap 15 mmol/L (5-15) Blood Urea Nitrogen 126 mg/dL (7-18) H Creatinine 4.3 MG/DL (0.55-1.30) H Estimat Glomerular Filtration Rate mL/min (>60) Glucose Level 296 MG/DL (74-106) H Lactic Acid Level 1.80 mmol/L (0.4-2.0) 2.00 mmol/L (0.4-2.0) Calcium Level 8.4 MG/DL (8.5-10.1) L Total Bilirubin 0.2 MG/DL (0.2-1.0) Aspartate Amino Transf (AST/SGOT) 66 U/L (15-37) H Alanine Aminotransferase (ALT/SGPT) 125 U/L (12-78) H Alkaline Phosphatase 159 U/L (46-116) H Total Creatine Kinase 253 U/L (26-308) Troponin I 0.271 ng/mL (0.000-0.056) 0.437 ng/mL (0.000-0.056) Pro-B-Type Natriuretic Peptide 72247 pg/mL (0-125) H Total Protein 5.9 G/DL (6.4-8.2) L Albumin 1.6 G/DL (3.4-5.0) L Globulin 4.3 g/dL Albumin/Globulin Ratio 0.4 (1.0-2.7) L Lipase 122 U/L (73-393) Arterial Blood pH 7.441 (7.350-7.450) Arterial Blood Partial Pressure CO2 17.6 mmHg (35.0-45.0) *L Arterial Blood Partial Pressure O2 188.8 mmHg (75.0-100.0) H Arterial Blood HCO3 11.7 mmol/L (22.0-26.0) *L Arterial Blood Oxygen Saturation 99.0 % (95-100) Arterial Blood Base Excess -11.0 (-2-2) *L Michael Test Positive Urine Color Brown Urine Appearance Very cloudy Urine pH 5 (4.5-8.0) Urine Specific [place] 1.020 (1.005-1.035) Urine Protein 3+ (NEGATIVE) H Urine Glucose (UA) Negative (NEGATIVE) Urine Ketones Negative (NEGATIVE) Urine Blood 5+ (NEGATIVE) H Urine Nitrite Negative (NEGATIVE) Urine Bilirubin Negative (NEGATIVE) Urine Urobilinogen Normal MG/DL (0.0-1.0) Urine Leukocyte Esterase 3+ (NEGATIVE) H Urine RBC 40-60 /HPF (0 - 2) H Urine WBC Tntc /HPF (0 - 2) H Urine Squamous Epithelial Cells Occasional /LPF Urine Transitional Epithelial Cells /LPF (NONE) Urine Bacteria Many /HPF (NONE) H Hemoglobin A1c 9.3 % (4.3-6.0) H Thyroid Stimulating Hormone (TSH) 1.261 uiU/mL (0.358-3.740) Cortisol Pending Test 03/08/18 17:39 Arterial Blood pH 7.390 (7.350-7.450) Arterial Blood Partial Pressure CO2 24.5 mmHg (35.0-45.0) *L Arterial Blood Partial Pressure O2 156.2 mmHg (75.0-100.0) H Arterial Blood HCO3 14.8 mmol/L (22.0-26.0) *L Arterial Blood Oxygen Saturation 98.5 % (95-100) Arterial Blood Base Excess -8.7 (-2-2) L Michael Test Positive Microbiology Date/Time Source Procedure Growth Status 03/08/18 10:20 Rectal Mucosa Received Height (Feet): 5 Height (Inches): 10.00 Weight (Pounds): 180 Medications Current Medications Medications (Trade) Dose Ordered Sig/Gelacio Route PRN Reason Start Time Stop Time Status Last Admin Dose Admin Acetaminophen (Tylenol) 650 mg Q6H PRN GT FEVER 03/08/18 15:15 04/07/18 15:14 Albuterol/ Ipratropium (Albuterol/ Ipratropium) 3 ml Q4H PRN HHN Shortness of Breath 03/08/18 15:15 03/13/18 15:14 Aspirin (ASA) 81 mg DAILY NG 03/09/18 09:00 04/08/18 08:59 Atorvastatin Calcium (Lipitor) 10 mg BEDTIME GT 03/08/18 21:00 04/07/18 20:59 Dextrose (Dextrose 50%) 25 ml Q30M PRN IV Hypoglycemia 03/08/18 15:15 04/07/18 15:14 Dextrose (Dextrose 50%) 50 ml Q30M PRN IV Hypoglycemia 03/08/18 15:15 04/07/18 15:14 Dextrose/Sodium Chloride 1,000 ml @ 50 mls/hr Q20H IV 03/08/18 15:06 04/07/18 15:05 03/08/18 15:06 Heparin Sodium (Porcine) (Heparin 5000 units/ml) 5,000 units EVERY 12 HOURS SUBQ 03/08/18 21:00 04/07/18 20:59 Insulin Aspart (NovoLOG) BEFORE MEALS AND HS SUBQ 03/08/18 16:30 04/07/18 16:29 03/08/18 17:38 Levetiracetam (Keppra) 750 mg Q12HR GT 03/08/18 21:00 04/07/18 20:59 Norepinephrine Bitartrate 4 mg/ Dextrose 250 ml @ 0 mls/hr Q24H IV 03/08/18 13:15 04/07/18 13:14 03/08/18 15:06 Ondansetron HCl (Zofran) 4 mg Q6H PRN IVP Nausea & Vomiting 03/08/18 15:15 04/07/18 15:14 Pantoprazole (Protonix) 40 mg EVERY 12 HOURS IVP 03/08/18 21:00 04/07/18 20:59 Piperacillin Sod/ Tazobactam Sod 2.25 gm/Dextrose 55 ml @ 110 mls/hr Q8HR IV 03/08/18 22:00 03/13/18 21:59 Assessment/Plan Problem List: (1) Abnormal LFTs Assessment & Plan: likely shock liver from overt sepsis. trend labs abdominal ultrasound ICD Codes: R94.5 - Abnormal results of liver function studies SNOMED: 855013307 (2) Decubitus ulcer of sacral region, unstageable Assessment & Plan: 5cm x 4cm unstagable sacral decubitus ulcer, no drainage, mild periedge edema/erythema, soft, no odor present upon admission. will be cared for during hospital sta turn q2h as possible air soft mattress wash wound with NS, apply skin protectant, apply foam dressing thank you ICD Codes: L89.150 - Pressure ulcer of sacral region, unstageable SNOMED: 257028966, 046758320 (3) Severe sepsis ICD Codes: A41.9 - Sepsis, unspecified organism; R65.20 - Severe sepsis without septic shock SNOMED: 97675762 Jean Marie Park Mar 08, 2018 20:04
[2018-03-08] MEDS: Pantoprazole Inj IVP SCH (20:46)
[2018-03-08] MEDS: levETIRAcetam 500mg/5ml Liquid GT SCH (20:46)
[2018-03-08] MEDS: Heparin 5000 units/ml inj SUBQ SCH (20:48)
[2018-03-08] MEDS ORDERED: Piperacillin/Tazobactam 3.375 GM in NS 110 ML IVPB SCH (22:00)
[2018-03-08] MEDS: Zosyn 2.25 gm in D5W 55ml IV SCH (22:00)
--- NOTE | 2018-03-08 22:00 | Consultation ---
DATE OF CONSULTATION: 03/08/2018 INFECTIOUS DISEASE CONSULTATION CONSULTING PHYSICIAN: Wilder French M.D. PRIMARY ATTENDING PHYSICIAN: Krzysztof Schneider M.D. REASON FOR CONSULT: Sepsis, septic shock, and UTI. HISTORY OF PRESENT ILLNESS: This is an 82-year-old female, who is a shelter resident, transferred this morning because of respiratory distress. The patient was tachycardic, hypotensive, and had leukocytosis, was intubated in the ER and currently is in the ER. PAST MEDICAL HISTORY: Significant for advanced dementia, diabetes mellitus, legally blind, gastrostomy status, encephalopathy, and seizure disorder. MEDICATIONS: Getting a dose of cefepime and got a dose of vancomycin and Levaquin. Getting IV fluid with sodium chloride. ALLERGIES: Allergic to penicillin. SOCIAL HISTORY: [facility] resident. No history of alcohol, drug abuse, or smoking. PHYSICAL EXAMINATION: VITAL SIGNS: Pulse 98 and blood pressure 93/35. NECK: Orally intubated, on restraints. HEART: Tachycardic. LUNGS: Decreased sounds. On mechanical ventilation. ABDOMEN: Soft and nontender. G-tube in place. EXTREMITIES: She has no edema. SKIN: Pressure ulcer on the left heel. GENITOURINARY: She has Degroot catheter. LABORATORY DATA: Sodium 141, potassium 3.5, chloride 109, bicarbonate 17, BUN 126, and creatinine 4.3. AST 66, ALT 125, and alkaline phosphatase is 159. BNP was elevated to 20,999. Troponin was elevated, 0.271. WBC 14.4, hemoglobin 9.1, hematocrit 28.5, and platelets 69,000. Chest x-ray showed prominent interstitial marking and , mild CHF, and mild basilar atelectasis. IMPRESSION: Sepsis with septic shock. The patient had acute renal failure, acute respiratory failure, AFib with rapid ventricular response. Source of infection seems to be UTI. The patient has history of recurrent UTI in the past and Degroot was placed, pus draining. However, the patient has advanced dementia, status post gastrostomy status. RECOMMENDATION: We will follow the culture, blood culture and urine culture. We will continue cefepime. At the end of my exam, I thank Dr. Schneider for involving me in the care of this patient. Wilder French M.D. DR: MILES JOB#: [id number] CC:
[2018-03-08] MEDS: Dyna-Hex 2% Top Sol 2oz TOPIC SCH (23:05)
[2018-03-09] VITALS (51 sets, daily range): BP systolic 84–140; BP diastolic 23–93
--- NOTE | 2018-03-09 | Consultation ---
DATE OF CONSULTATION: 03/08/2018 INFECTIOUS DISEASE CONSULTATION CONSULTING PHYSICIAN: Wilder French M.D. PRIMARY ATTENDING PHYSICIAN: Krzysztof Schneider M.D. REASON FOR CONSULT: Sepsis, septic shock, and UTI. HISTORY OF PRESENT ILLNESS: This is an 82-year-old female, who is a skilled nursing resident, transferred this morning because of respiratory distress. The patient was tachycardic, hypotensive, and had leukocytosis, was intubated in the ER and currently is in the ER. PAST MEDICAL HISTORY: Significant for advanced dementia, diabetes mellitus, legally blind, gastrostomy status, encephalopathy, and seizure disorder. MEDICATIONS: Getting a dose of cefepime and got a dose of vancomycin and Levaquin. Getting IV fluid with sodium chloride. ALLERGIES: Allergic to penicillin. SOCIAL HISTORY: custodial resident. No history of alcohol, drug abuse, or smoking. PHYSICAL EXAMINATION: VITAL SIGNS: Pulse 98 and blood pressure 93/35. NECK: Orally intubated, on restraints. HEART: Tachycardic. LUNGS: Decreased sounds. On mechanical ventilation. ABDOMEN: Soft and nontender. G-tube in place. EXTREMITIES: She has no edema. SKIN: Pressure ulcer on the left heel. GENITOURINARY: She has Degroot catheter. LABORATORY DATA: Sodium 141, potassium 3.5, chloride 109, bicarbonate 17, BUN 126, and creatinine 4.3. AST 66, ALT 125, and alkaline phosphatase is 159. BNP was elevated to 20,999. Troponin was elevated, 0.271. WBC 14.4, hemoglobin 9.1, hematocrit 28.5, and platelets 169,000. Chest x-ray showed prominent interstitial marking and mild CHF, and mild basilar atelectasis. IMPRESSION: Sepsis with septic shock. The patient had acute renal failure, acute respiratory failure, AFib with rapid ventricular response. Source of infection seems to be UTI. The patient has history of recurrent UTI in the past and Degroot was placed, pus draining. However, the patient has advanced dementia, status post gastrostomy status. RECOMMENDATION: We will follow the culture, blood culture and urine culture. We will continue cefepime. At the end of my exam, I thank Dr. Schneider for involving me in the care of this patient. Wilder French M.D. DR: MILES JOB#: [id number] CC: INDY
--- NOTE | 2018-03-09 | Consultation ---
DATE OF CONSULTATION: 03/08/2018 CARDIOLOGY CONSULTATION CONSULTING PHYSICIAN: Everett Tomas M.D. REFERRING PHYSICIAN: Krzysztof Schneider M.D. REASON FOR CONSULTATION: Management of atrial fibrillation with rapid ventricular response. HISTORY OF PRESENT ILLNESS: The patient is a very unfortunate 82-year-old lady who has multiple medical problems, who presents to this facility with dyspnea and respiratory distress. The patient was intubated in the emergency department and was transferred to intensive care unit for further evaluation and management. Unfortunately, history could not be obtained in the emergency department and currently the patient is intubated, therefore obtaining history is impossible. At the time of arrival to the hospital, blood pressure was 105/50 mmHg, respiratory rate of 22, and pulse of 104. A 12-lead electrocardiogram was significant for atrial fibrillation with rapid ventricular response. PAST MEDICAL HISTORY: 1. Electrolyte abnormalities. 2. Hyperlipidemia. 3. Hypertension. 4. Diabetes mellitus. 5. Dysphagia, status post PEG placement. 6. Chronic kidney disease. 7. Encephalopathy. 8. Blindness. 9. History of seizure disorder. ALLERGIES: Penicillin. REVIEW OF SYSTEMS: Unfortunately, 12-system review cannot be done as the patient is intubated. SOCIAL HISTORY: There is no history of tobacco, alcohol, or illicit drug use. FAMILY HISTORY: No premature coronary artery disease in first-degree relatives according to the records. MEDICATIONS: List of medication at nursing facility: 1. Tylenol No. 3 one tablet daily p.r.n. pain. 2. Acetaminophen 650 G-tube q.4 h. p.r.n. pain. 3. Pro-Stat liquid 30 mL G-tube daily. 4. Norvasc 5 mg G-tube daily. 5. Aspirin 81 mg G-tube daily. 6. Aggrenox 25/200, one capsule G-tube twice daily. 7. Atorvastatin 10 mg G-tube nightly. 8. Calcium carbonate and vitamin D3 1 tablet G-tube twice daily. 9. Catapres 0.1 mg G-tube every 6 hours. 10. Cranberry 450 mg G-tube daily. 11. Colace 100 mg G-tube twice daily. 12. Ferrous sulfate 325 mg G-tube twice daily. 13. Neurontin 100 mg G-tube 3 times a day. 14. Levemir insulin 12 units subcutaneous q.12 hours. 15. Levemir insulin 30 units subcutaneously at bedtime. 16. Humalog insulin as needed. 17. Levetiracetam 7.5 mL G-tube twice daily. 18. Cozaar 50 mg G-tube twice daily. 19. Magnesium hydroxide/aluminium hydroxide/simethicone 360 mL G-tube daily. 20. Meclizine 25 mg G-tube 3 times a day. 21. Metoprolol 50 mg G-tube q.12 hours. 22. Multivitamins mineral 1 tablet G-tube daily. 23. Nepro Carb Steady 40 mL G-tube q.12 hours. 24. Pantoprazole 40 mg G-tube daily. 25. MiraLAX 17 g G-tube nightly. 26. Potassium 80 milliequivalents G-tube daily. 27. Sennosides 8.6 mg G-tube daily, 28. Carafate 1 g G-tube 3 times a day. 29. Sasha-Hannah 1 tablet G-tube daily. 30. Ambien 5 mg G-tube nightly p.r.n. insomnia. PHYSICAL EXAMINATION: VITAL SIGNS: Blood pressure at the time of arrival to the hospital 105/50, pulse of 104, respirations 22, O2 saturation of 100% on non-rebreather O2 flow rate of 16 L/min. GENERAL: The patient is a very unfortunate 82-year-old lady, currently intubated, not responding, sedated. HEENT: Atraumatic and normocephalic. Anicteric. Pupils are equal, round, and reactive to light and accommodation. Extraocular muscles intact. NECK: JVP less than 5 cm. No carotid bruits. Carotid upstrokes 2+ bilaterally. CARDIOVASCULAR SYSTEM: Normal S1, S2. Irregularly irregular rhythm. No murmurs, gallops, or rubs. Tachycardic. LUNGS: Diminished breath sounds in both bases. ABDOMEN: Soft, nontender, and nondistended. No hepatosplenomegaly. Positive G-tube in place. EXTREMITIES: No evidence of edema, clubbing, or cyanosis. LABORATORY FINDINGS: Chemistry showed sodium 141, potassium 3.5, chloride 109, bicarbonate 17, BUN of 126, creatinine 4.3, glucose 296, calcium is 8.4. Troponin I is 0.271. ProBNP was 20,999. INR was 1.1. WBC was 14.4, hemoglobin 9.1, hematocrit of 28.5, and platelet count 169,000. Chest x-ray shows cardiomegaly with pulmonary vascular congestion consistent with mild CHF. ASSESSMENT AND PLAN: The patient is a very unfortunate 82-year-old lady who is seen in Cardiology consultation at the request of Dr. Schneider. 1. Septic shock. The patient is currently on IV fluid therapy. A 2D echocardiography showed normal LV systolic function with normal intracardiac filling pressures. If the systolic blood pressure falls below 85 mmHg, we will start the patient on Levophed drip. 2. Atrial fibrillation with rapid ventricular response. I will like to give 1 dose of digoxin at 0.25. The patient will not tolerate AV-miguel angel agents at this time. The management of rapid ventricular response with AFib would correct underlying sepsis and hypovolemia. The patient will ultimately benefit from anticoagulation therapy. This will be discussed with primary care doctor with Dr. Schneider. 3. History of hypertension. 4. History of diabetes mellitus. 5. History of seizure disorder. 6. UTI. Total amount of time spent in the evaluation of this patient in the intensive care unit of [facility], review of the old record, discussing the plan of care with the primary care physician and nursing staff was 50 minutes. I would like to thank, Dr. Schneider, for the courtesy of this consultation. Everett Tomas M.D. DR: Yaya JOB#: [id number] CC:
--- NOTE | 2018-03-09 03:30 | History and Physical Report ---
DATE OF ADMISSION: 03/08/2018 HISTORY OF PRESENT ILLNESS: The patient is admitted, intubated in the ER, transferred via 911 for lethargy and altered mental status. The patient is on pressors, admitted for septic shock and extreme acute renal failure as well as non-STEMI. The patient is nonverbal, cannot get any history from the patient. PAST MEDICAL HISTORY: Advanced dementia, hypertension, history of arrhythmia, constipation, iron-deficiency anemia, NIDDM, seizure disorder, history of vertigo, GERD, chronic renal insufficiency. PAST SURGICAL HISTORY: The patient has a history of PEG in the past. ALLERGIES: Penicillin. MEDICATIONS: Norvasc, Lipitor, aspirin. The patient has a history of in the past, detemir, Keppra, metoprolol, polyethylene glycol, Protonix, Carafate, Senokot. FAMILY HISTORY: Unable to obtain. SOCIAL HISTORY: Unable to obtain. REVIEW OF SYSTEMS: Unable to obtain. PHYSICAL EXAMINATION: VITAL SIGNS: Temperature not recorded, pulse is . HEENT: Pupils are fairly reactive to light. CHEST: Bibasilar rales. CARDIOVASCULAR: Regular rate and rhythm. ABDOMEN: Distended. Positive bowel sounds. EXTREMITIES: Dorsalis pedis pulses are barely palpable. For the wounds, please refer to the nursing notes for the description of the skin wound. NEUROLOGIC: The patient is lethargic, intubated, cannot follow neurological exam. LABORATORY AND DIAGNOSTIC DATA: WBC of 14.4, hemoglobin 9.1, and platelets of 169. Lactic acid 1.8. Troponin 0.437. According to the ER doctor, the BUN was 126. ASSESSMENT: 1. Respiratory failure, intubated. 2. Acute renal failure. 3. Septic shock, on pressors. 4. Shortness of breath. 5. Lethargic. 6. Non-STEMI. The patient is being seen by Dr. Ortiz, Dr. Tomas, Dr. French, Dr. Gan, and Dr. Jean Marie Park in case of surgical need, the patient is going to consult the surgeon as well. Krzysztof Schneider M.D. DR: Jada JOB#: [id number] CC:
--- NOTE | 2018-03-09 05:41 | Consultation ---
Consult Note Consult Note Hematology Consult Date patient seen: Mar 09, 2018 Chief Complaint: Altered Level of Consciousness RFC: Anemia eval, leukocytosis REQ MD: Krzysztof Schneider HPI 82 year old female with multiple medical comorbidities, trach, peg, halfway resident presented to ED with overt sepsis. Presents with SOB, tachycardia , respiratory failure, cloudy urine. Intubated, on vent support, central line placed, admitted to ICU. On admission noted to have leukocytosis, elevated lfts , sacral wound. surgery called to evaluate and assist with care / management. patient seen, chart reviewed, patient examined. unable to provide history given medical condition. Noted to be anemic and heme was consulted as well as several other services. Allergies: Coded Allergies: PENICILLINS (Unverified Allergy, Mild, 12/04/12) Medication History Scheduled Acetaminophen With Codeine (T#3) (Tylenol #3 Tab*), 1 TAB ORAL PRN, (Reported) Amino Acids/Protein Hydrolys (Pro-Stat Liquid), 30 ML GT DAILY, (Reported) Amlodipine Besylate (Norvasc), 5 MG GT DAILY, (Reported) Aspirin* (Aspir 81*), 81 MG GT DAILY, (Reported) Aspirin/Dipyridamole* (Aggrenox 25 Mg-200 Mg Capsule*), 1 CAP ORAL TWICE A DAY, (Reported) Atorvastatin Calcium* (Atorvastatin Calcium*), 10 MG GT BEDTIME, (Reported) Calcium Carbonate/Vitamin D3 (Calcium 500 + Vit D 200 Caplet), 1 EACH PO BID, ( Reported) Clonidine Hcl* (Catapres*), 0.1 MG GT EVERY 6 HOURS, (Reported) Dipyridamole/Aspirin (Aggrenox 25 mg-200 mg Capsule), 1 CAP ORAL TWICE A DAY, ( Reported) Docusate Sodium* (Docusate Sodium*), 100 MG ORAL TWICE A DAY, (Reported) Ferrous Sulfate* (Ferrous Sulfate*), 325 MG ORAL TWICE A DAY, (Reported) Gabapentin* (Neurontin*), 100 MG GT THREE TIMES A DAY, (Reported) Insulin Detemir (Levemir Flexpen), 12 UNIT SUBQ Q12HR, (Reported) Insulin Detemir (Levemir), 30 SUBQ BEDTIME, (Reported) Levetiracetam* (Levetiracetam*), 7.5 ML GT BID, (Reported) Losartan Potassium* (Cozaar*), 50 MG ORAL TWICE A DAY, (Reported) Meclizine Hcl* (Meclizine*), 25 MG ORAL THREE TIMES A DAY, (Reported) Metoprolol Tartrate* (Metoprolol Tartrate*), 50 MG ORAL EVERY 12 HOURS, ( Reported) Multivitamin with Minerals (Multivitamins with Minerals), 1 TAB GT DAILY, ( Reported) Nut.tx.impaired Renal Fxn,Soy (Nepro Carb Steady), 40 ML GT Q12HR, (Reported) Pantoprazole (Pantoprazole), 40 MG GT DAILY, (Reported) Polyethylene Glycol 3350* (Miralax*), 17 GM ORAL HS, (Reported) Polyethylene Glycol 3350* (Miralax*), 17 GM ORAL DAILY, (Reported) Potassium (Potassium), 8 MEQ PO DAILY, (Reported) Sucralfate* (Carafate*), 1 GM GT TID, (Reported) Vit B Cmplx 3/Fa/Vit C/Biotin (Sasha-Hannah Rx Tablet), 1 EACH PO DAILY, (Reported) Scheduled PRN Acetaminophen* (Acetaminophen 325MG Tablet*), 650 MG GT Q4H PRN for Pain Scale ( 3-5), (Reported) Zolpidem Tartrate* (Ambien*), 5 MG ORAL BEDTIME PRN for Insomnia, (Reported) Miscellaneous Medications Cranberry (Cranberry), 450 MG PO, (Reported) Insulin Lispro (Humalog), Unknown Dose SUBQ, (Reported) Mag Hydrox/Al Hydrox/Simeth (Alum-Mag Hydroxide-Simeth Liq), 360 ML PO, ( Reported) Sennosides (Patti-Elpidio), 8.6 MG PO, (Reported) Past Medical/Surgical History Past Medical/Surgical History: (1) Hypertension (2) Sepsis (3) Respiratory failure (4) UTI (urinary tract infection) (5) Severe sepsis (6) NSTEMI (non-ST elevated myocardial infarction) (7) Anemia (8) Seizure disorder (9) CKD (chronic kidney disease) (10) MARK (acute kidney injury) Review of Systems ROS Narrative cannot obtain given medical condition Physical Exam General Appearance: mild distress Lines, tubes and drains: central line HEENT: mucous membranes moist Neck: trach Respiratory/Chest: on vent Cardiovascular/Chest: normal rate Abdomen: feeding tube Genitourinary/Rectal: shaver Extremities: other Skin Exam: warm/dry Neurologic: unresponsiveness Last 24 Hour Vital Signs Date Time Temp Pulse Resp B/P (MAP) Pulse Ox O2 Delivery O2 Flow Rate FiO2 03/09/18 04:00 98.4 70 16 115/36 (62) 100 03/09/18 04:00 115/36 03/09/18 04:00 15.0 30 03/09/18 04:00 70 03/09/18 04:00 Mechanical Ventilator 03/09/18 03:20 71 16 30 03/09/18 03:00 119/55 03/09/18 03:00 70 16 119/55 (76) 100 03/09/18 02:45 72 16 85/55 (65) 100 03/09/18 02:30 74 16 129/93 (105) 100 03/09/18 02:15 72 16 118/38 (64) 100 03/09/18 02:00 71 16 140/51 (80) 100 03/09/18 02:00 140/51 03/09/18 01:45 72 16 94/59 (71) 100 03/09/18 01:30 72 16 110/42 (64) 100 03/09/18 01:16 72 16 30 03/09/18 01:15 73 16 112/40 (64) 100 03/09/18 01:00 72 16 123/40 (67) 100 03/09/18 01:00 123/44 03/09/18 00:30 71 16 116/41 (66) 100 03/09/18 00:00 99.0 72 16 114/40 (64) 100 03/09/18 00:00 15.0 30 03/09/18 00:00 114/40 03/09/18 00:00 74 03/09/18 00:00 Mechanical Ventilator 03/08/18 23:30 73 16 124/41 (68) 100 03/08/18 23:00 111/38 03/08/18 23:00 73 16 111/38 (62) 100 03/08/18 22:57 71 16 30 03/08/18 22:30 73 16 101/46 (64) 100 03/08/18 22:02 118/42 03/08/18 22:00 118/42 03/08/18 22:00 75 16 118/42 (67) 100 03/08/18 21:45 75 16 114/41 (65) 100 03/08/18 21:30 75 16 115/46 (69) 100 03/08/18 21:15 76 16 113/43 (66) 100 03/08/18 21:00 73 16 105/36 (59) 100 03/08/18 21:00 105/36 03/08/18 20:57 74 16 30 03/08/18 20:45 76 16 117/42 (67) 100 03/08/18 20:30 77 16 117/43 (67) 100 03/08/18 20:15 79 16 103/44 (63) 100 03/08/18 20:00 15.0 30 03/08/18 20:00 121/42 03/08/18 20:00 77 16 121/42 (68) 100 03/08/18 20:00 76 03/08/18 19:56 15.0 30 03/08/18 19:50 Mechanical Ventilator 03/08/18 19:45 78 16 121/46 (71) 100 03/08/18 19:30 77 16 106/41 (62) 100 03/08/18 19:15 77 16 120/42 (68) 100 03/08/18 19:07 77 16 30 03/08/18 19:00 77 16 99/40 (59) 100 03/08/18 18:52 Mechanical Ventilator 03/08/18 16:42 86 16 40 03/08/18 15:40 97.8 112 17 102/45 100 Mechanical Ventilator 15.0 40 03/08/18 15:40 96 17 40 03/08/18 15:22 97.8 112 15 102/45 100 Mechanical Ventilator 15.0 40 03/08/18 15:06 102/45 03/08/18 14:38 96 17 40 03/08/18 14:30 98.3 110 20 108/60 100 Mechanical Ventilator 15.0 40 03/08/18 13:40 104/58 03/08/18 13:40 98.3 101 18 104/58 100 Mechanical Ventilator 15.0 40 03/08/18 13:35 84/47 03/08/18 13:30 98.3 101 18 85/48 100 Mechanical Ventilator 15.0 40 03/08/18 13:30 85/48 03/08/18 13:25 75/41 03/08/18 13:12 107 17 40 03/08/18 13:00 98.0 96 16 86/42 100 Mechanical Ventilator 15.0 45 03/08/18 12:30 98.0 101 16 92/34 100 Mechanical Ventilator 15.0 45 03/08/18 11:57 98.0 101 16 86/42 100 Mechanical Ventilator 15.0 45 03/08/18 11:53 106 16 45 03/08/18 10:54 98 16 93/35 100 Mechanical Ventilator 15.0 50 03/08/18 10:24 121 16 Mechanical Ventilator 50 03/08/18 10:18 111 16 50 03/08/18 10:05 15.0 50 03/08/18 10:00 111 16 Mechanical Ventilator 15.0 50 03/08/18 10:00 111 16 66/32 100 Mechanical Ventilator 15.0 50 03/08/18 09:50 104 22 105/50 100 Non-Rebreather 15.0 Laboratory Tests Test 03/08/18 10:00 03/08/18 11:04 03/08/18 11:46 03/08/18 16:00 White Blood Count 14.4 K/UL (4.8-10.8) H Red Blood Count 3.39 M/UL (4.20-5.40) L Hemoglobin 9.1 G/DL (12.0-16.0) L Hematocrit 28.5 % (37.0-47.0) L Mean Corpuscular Volume 84 FL (80-99) Mean Corpuscular Hemoglobin 26.9 PG (27.0-31.0) L Mean Corpuscular Hemoglobin Concent 32.0 G/DL (32.0-36.0) Red Cell Distribution Width 13.7 % (11.6-14.8) Platelet Count 169 K/UL (150-450) Mean Platelet Volume 10.3 FL (6.5-10.1) H Neutrophils (%) (Auto) 80.0 % (45.0-75.0) H Lymphocytes (%) (Auto) 9.1 % (20.0-45.0) L Monocytes (%) (Auto) 10.1 % (1.0-10.0) H Eosinophils (%) (Auto) 0.0 % (0.0-3.0) Basophils (%) (Auto) 0.8 % (0.0-2.0) Prothrombin Time 12.0 SEC (9.30-11.50) H Prothromb Time International Ratio 1.1 (0.9-1.1) Activated Partial Thromboplast Time 48 SEC (23-33) H Sodium Level 141 MMOL/L (136-145) Potassium Level 3.5 MMOL/L (3.5-5.1) Chloride Level 109 MMOL/L (98-107) H Carbon Dioxide Level 17 MMOL/L (21-32) L Anion Gap 15 mmol/L (5-15) Blood Urea Nitrogen 126 mg/dL (7-18) H Creatinine 4.3 MG/DL (0.55-1.30) H Estimat Glomerular Filtration Rate mL/min (>60) Glucose Level 296 MG/DL (74-106) H Lactic Acid Level 1.80 mmol/L (0.4-2.0) 2.00 mmol/L (0.4-2.0) Calcium Level 8.4 MG/DL (8.5-10.1) L Total Bilirubin 0.2 MG/DL (0.2-1.0) Aspartate Amino Transf (AST/SGOT) 66 U/L (15-37) H Alanine Aminotransferase (ALT/SGPT) 125 U/L (12-78) H Alkaline Phosphatase 159 U/L (46-116) H Total Creatine Kinase 253 U/L (26-308) Troponin I 0.271 ng/mL (0.000-0.056) 0.437 ng/mL (0.000-0.056) Pro-B-Type Natriuretic Peptide 26375 pg/mL (0-125) H Total Protein 5.9 G/DL (6.4-8.2) L Albumin 1.6 G/DL (3.4-5.0) L Globulin 4.3 g/dL Albumin/Globulin Ratio 0.4 (1.0-2.7) L Lipase 122 U/L (73-393) Arterial Blood pH 7.441 (7.350-7.450) Arterial Blood Partial Pressure CO2 17.6 mmHg (35.0-45.0) *L Arterial Blood Partial Pressure O2 188.8 mmHg (75.0-100.0) H Arterial Blood HCO3 11.7 mmol/L (22.0-26.0) *L Arterial Blood Oxygen Saturation 99.0 % (95-100) Arterial Blood Base Excess -11.0 (-2-2) *L Michael Test Positive Urine Color Brown Urine Appearance Very cloudy Urine pH 5 (4.5-8.0) Urine Specific [place] 1.020 (1.005-1.035) Urine Protein 3+ (NEGATIVE) H Urine Glucose (UA) Negative (NEGATIVE) Urine Ketones Negative (NEGATIVE) Urine Blood 5+ (NEGATIVE) H Urine Nitrite Negative (NEGATIVE) Urine Bilirubin Negative (NEGATIVE) Urine Urobilinogen Normal MG/DL (0.0-1.0) Urine Leukocyte Esterase 3+ (NEGATIVE) H Urine RBC 40-60 /HPF (0 - 2) H Urine WBC Tntc /HPF (0 - 2) H Urine Squamous Epithelial Cells Occasional /LPF Urine Transitional Epithelial Cells /LPF (NONE) Urine Bacteria Many /HPF (NONE) H Hemoglobin A1c 9.3 % (4.3-6.0) H Thyroid Stimulating Hormone (TSH) 1.261 uiU/mL (0.358-3.740) Cortisol Pending Test 03/08/18 17:39 Arterial Blood pH 7.390 (7.350-7.450) Arterial Blood Partial Pressure CO2 24.5 mmHg (35.0-45.0) *L Arterial Blood Partial Pressure O2 156.2 mmHg (75.0-100.0) H Arterial Blood HCO3 14.8 mmol/L (22.0-26.0) *L Arterial Blood Oxygen Saturation 98.5 % (95-100) Arterial Blood Base Excess -8.7 (-2-2) L Michael Test Positive Microbiology Date/Time Source Procedure Growth Status 03/08/18 10:20 Rectal Mucosa Received Height (Feet): 5 Height (Inches): 10.00 Weight (Pounds): 180 Medications Current Medications Medications (Trade) Dose Ordered Sig/Gelacio Route PRN Reason Start Time Stop Time Status Last Admin Dose Admin Acetaminophen (Tylenol) 650 mg Q6H PRN GT FEVER 03/08/18 15:15 04/07/18 15:14 Albuterol/ Ipratropium (Albuterol/ Ipratropium) 3 ml Q4H PRN HHN Shortness of Breath 03/08/18 15:15 03/13/18 15:14 Aspirin (ASA) 81 mg DAILY NG 03/09/18 09:00 04/08/18 08:59 Atorvastatin Calcium (Lipitor) 10 mg BEDTIME GT 03/08/18 21:00 04/07/18 20:59 Dextrose (Dextrose 50%) 25 ml Q30M PRN IV Hypoglycemia 03/08/18 15:15 04/07/18 15:14 Dextrose (Dextrose 50%) 50 ml Q30M PRN IV Hypoglycemia 03/08/18 15:15 04/07/18 15:14 Dextrose/Sodium Chloride 1,000 ml @ 50 mls/hr Q20H IV 03/08/18 15:06 04/07/18 15:05 03/08/18 15:06 Heparin Sodium (Porcine) (Heparin 5000 units/ml) 5,000 units EVERY 12 HOURS SUBQ 03/08/18 21:00 04/07/18 20:59 Insulin Aspart (NovoLOG) BEFORE MEALS AND HS SUBQ 03/08/18 16:30 04/07/18 16:29 03/08/18 17:38 Levetiracetam (Keppra) 750 mg Q12HR GT 03/08/18 21:00 04/07/18 20:59 Norepinephrine Bitartrate 4 mg/ Dextrose 250 ml @ 0 mls/hr Q24H IV 03/08/18 13:15 04/07/18 13:14 03/08/18 15:06 Ondansetron HCl (Zofran) 4 mg Q6H PRN IVP Nausea & Vomiting 03/08/18 15:15 04/07/18 15:14 Pantoprazole (Protonix) 40 mg EVERY 12 HOURS IVP 03/08/18 21:00 04/07/18 20:59 Piperacillin Sod/ Tazobactam Sod 2.25 gm/Dextrose 55 ml @ 110 mls/hr Q8HR IV 03/08/18 22:00 03/13/18 21:59 Assessment/Plan # Anemia of chronic disease -- baseline appears to be 11-12 reviewed labs from 2012 --> at this time decreased, anemia panel has been decreased --> transfuse as needed, hgb goal >7 --> no evidence of hemolysis noted # Leukocytosis likely related to septic shock --> on abx and ivf --> appreciate ID recs and workup # Abnormal LFTs --> likely shock liver from overt sepsis. --> trend labs # Decubitus ulcer of sacral region, unstageable, 5cm x 4cm unstagable sacral decubitus ulcer, no drainage, mild periedge edema/erythema, soft, no odor present upon admission. will be cared for during hospital sta # Severe sepsis --> on abx as per ID # Respiratory failure intubated --> as per pulm Greatly appreciate consultation! Aleksandr Kern MD Mar 09, 2018 05:40
[2018-03-09] MEDS: Zosyn 2.25 gm in D5W 55ml IV SCH (05:44)
[2018-03-09] MEDS: NovoLOG Insulin Flexpen SUBQ SCH ×4 (05:45→20:43)
[2018-03-09 06:08] LABS: BASOPHILS % (AUTO) 0.5 % (0.0-2.0); EOSINOPHILS % (AUTO) 0.5 % (0.0-3.0); HEMATOCRIT 26.4 % (37.0-47.0); HEMOGLOBIN 8.5 G/DL (12.0-16.0); LYMPHOCYTES % (AUTO) 9.4 % (20.0-45.0); MEAN CORPUSCULAR VOLUME 85 FL (80-99); NEUTROPHILS % (AUTO) 78.6 % (45.0-75.0); PLATELET COUNT 168 K/UL (150-450); RED BLOOD COUNT 3.11 M/UL (4.20-5.40); WHITE BLOOD COUNT 12.1 K/UL (4.8-10.8)
[2018-03-09 06:48] LABS: ALANINE AMINOTRANSFERASE 91 U/L (12-78); ALBUMIN 1.5 G/DL (3.4-5.0); ALBUMIN/GLOBULIN RATIO 0.4 (1.0-2.7); ALKALINE PHOSPHATASE 132 U/L (46-116); ANION GAP 15 mmol/L (5-15); ASPARTATE AMINO TRANSFERASE 46 U/L (15-37); BILIRUBIN,TOTAL 0.2 MG/DL (0.2-1.0); BLOOD UREA NITROGEN 116 mg/dL (7-18); CALCIUM 7.6 MG/DL (8.5-10.1); CARBON DIOXIDE 17 MMOL/L (21-32); CHLORIDE 111 MMOL/L (98-107); CREATININE 4.1 MG/DL (0.55-1.30); POTASSIUM 3.6 MMOL/L (3.5-5.1); SODIUM 143 MMOL/L (136-145)
[2018-03-09 07:22] LABS: % IRON SATURATION 15 % (15-50); IRON 16 ug/dL (50-175); TOTAL IRON BINDING CAPACITY 109 ug/dL (250-450)
[2018-03-09 08:08] LABS: FERRITIN 284 NG/ML (8-388); LACTATE DEHYDROGENASE 260 U/L (81-234)
[2018-03-09] MEDS: Aspirin Baby 81mg NG SCH (09:52)
[2018-03-09] MEDS: Heparin 5000 units/ml inj SUBQ SCH ×2 (09:53→20:42)
[2018-03-09] MEDS: Pantoprazole Inj IVP SCH ×2 (09:53→20:41)
[2018-03-09] MEDS: levETIRAcetam 500mg/5ml Liquid GT SCH ×2 (09:53→20:41)
--- NOTE | 2018-03-09 10:40 | Diagnostic Imaging Report ---
Indication: Dyspnea Technique: One view of the chest Comparison: 03/08/2018 Findings: Suboptimal inspiration with crowding of bronchovascular markings at the lung bases again demonstrated. There may also be some atelectasis and possibly minimal consolidation. This appears similar to the previous exam. Stable satisfactory position of endotracheal tube. No new infiltrates. Normal heart size. Findings are unchanged Impression: Unchanged, over one day, findings as above.
--- NOTE | 2018-03-09 10:45 | Diagnostic Imaging Report ---
Indication: The abnormal liver function tests and renal function tests Technique: Naik-scale and duplex images of the upper abdomen were obtained Comparison: No comparison sonograms. Reference made to abdomen pelvis CT dated 12/04/2012 Findings: Gallbladder demonstrates gallstones. No wall thickening or pericholecystic fluid patient unable to report sonographic Lin's sign. Common bile duct measures 5 mm in diameter. No intrahepatic biliary ductal dilatation. Liver demonstrates normal echogenicity, no focal abnormality. Portal vein and hepatic veins are patent. Pancreas is unremarkable. Spleen is unremarkable. Left kidney measures 9.7 cm in length. Right kidney measures 8.6 cm length. Both kidneys demonstrate normal echogenicity. There is no hydronephrosis. Left kidney demonstrates a cortical echogenic focus that measures 8 mm in diameter. Review of previous CT scan indicates that this is a small angiomyolipoma . Abdominal aorta is partially obscured by bowel gas, visualized portions are non-aneurysmal . Impression: Cholelithiasis. 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
--- NOTE | 2018-03-09 11:08 | Infectious Diseases Prog Note ---
Assessment/Plan Assessment/Plan A; Septic shock UTI Acute respiratory failure Acute renal failure Chronic kidney disease Elevated transaminase Dementia P; Continue Zosyn & Vancomycin Subjective ROS Limited/Unobtainable: Yes Cardiovascular: Reports: other - on levophed Allergies: Coded Allergies: PENICILLINS (Unverified Allergy, Mild, 12/04/12) Objective Vital Signs Last 24 Hour Vital Signs Date Time Temp Pulse Resp B/P (MAP) Pulse Ox O2 Delivery O2 Flow Rate FiO2 03/09/18 10:42 69 16 30 03/09/18 09:31 72 16 30 03/09/18 09:00 70 16 102/37 (58) 100 03/09/18 09:00 15.0 30 03/09/18 08:30 73 16 96/37 (56) 100 03/09/18 08:02 74 21 30 03/09/18 08:00 98.8 69 16 105/39 (61) 100 03/09/18 08:00 Mechanical Ventilator 03/09/18 08:00 105/39 03/09/18 07:30 71 17 100/36 (57) 100 03/09/18 07:00 73 16 96/35 (55) 100 03/09/18 07:00 96/35 03/09/18 06:30 71 16 102/34 (56) 100 03/09/18 06:00 111/37 03/09/18 06:00 72 16 111/37 (61) 100 03/09/18 05:45 74 16 113/70 (84) 100 03/09/18 05:30 71 16 118/39 (65) 100 03/09/18 05:21 69 16 30 03/09/18 05:15 69 16 102/77 (85) 100 03/09/18 05:00 71 17 109/85 (93) 100 03/09/18 05:00 109/85 03/09/18 04:45 72 20 114/38 (63) 100 03/09/18 04:30 73 16 114/41 (65) 100 03/09/18 04:00 98.4 70 16 115/36 (62) 100 03/09/18 04:00 115/36 03/09/18 04:00 15.0 30 03/09/18 04:00 70 03/09/18 04:00 Mechanical Ventilator 10/26/18 03:20 71 16 30 03/09/18 03:00 119/55 03/09/18 03:00 70 16 119/55 (76) 100 03/09/18 02:45 72 16 85/55 (65) 100 03/09/18 02:30 74 16 129/93 (105) 100 03/09/18 02:15 72 16 118/38 (64) 100 03/09/18 02:00 71 16 140/51 (80) 100 03/09/18 02:00 140/51 03/09/18 01:45 72 16 94/59 (71) 100 03/09/18 01:30 72 16 110/42 (64) 100 03/09/18 01:16 72 16 30 03/09/18 01:15 73 16 112/40 (64) 100 03/09/18 01:00 72 16 123/40 (67) 100 03/09/18 01:00 123/44 03/09/18 00:30 71 16 116/41 (66) 100 03/09/18 00:00 99.0 72 16 114/40 (64) 100 03/09/18 00:00 15.0 30 03/09/18 00:00 114/40 03/09/18 00:00 74 03/09/18 00:00 Mechanical Ventilator 03/08/18 23:30 73 16 124/41 (68) 100 03/08/18 23:00 111/38 03/08/18 23:00 73 16 111/38 (62) 100 03/08/18 22:57 71 16 30 03/08/18 22:30 73 16 101/46 (64) 100 03/08/18 22:02 118/42 03/08/18 22:00 118/42 03/08/18 22:00 75 16 118/42 (67) 100 03/08/18 21:45 75 16 114/41 (65) 100 03/08/18 21:30 75 16 115/46 (69) 100 03/08/18 21:15 76 16 113/43 (66) 100 03/08/18 21:00 73 16 105/36 (59) 100 03/08/18 21:00 105/36 03/08/18 20:57 74 16 30 03/08/18 20:45 76 16 117/42 (67) 100 03/08/18 20:30 77 16 117/43 (67) 100 03/08/18 20:15 79 16 103/44 (63) 100 03/08/18 20:00 15.0 30 03/08/18 20:00 121/42 03/08/18 20:00 77 16 121/42 (68) 100 03/08/18 20:00 76 03/08/18 19:56 15.0 30 03/08/18 19:50 Mechanical Ventilator 03/08/18 19:45 78 16 121/46 (71) 100 03/08/18 19:30 77 16 106/41 (62) 100 03/08/18 19:15 77 16 120/42 (68) 100 03/08/18 19:07 77 16 30 03/08/18 19:00 77 16 99/40 (59) 100 03/08/18 18:52 Mechanical Ventilator 03/08/18 16:42 86 16 40 03/08/18 15:40 97.8 112 17 102/45 100 Mechanical Ventilator 15.0 40 03/08/18 15:40 96 17 40 03/08/18 15:22 97.8 112 15 102/45 100 Mechanical Ventilator 15.0 40 03/08/18 15:06 102/45 03/08/18 14:38 96 17 40 03/08/18 14:30 98.3 110 20 108/60 100 Mechanical Ventilator 15.0 40 03/08/18 13:40 104/58 03/08/18 13:40 98.3 101 18 104/58 100 Mechanical Ventilator 15.0 40 03/08/18 13:35 84/47 03/08/18 13:30 98.3 101 18 85/48 100 Mechanical Ventilator 15.0 40 03/08/18 13:30 85/48 03/08/18 13:25 75/41 03/08/18 13:12 107 17 40 03/08/18 13:00 98.0 96 16 86/42 100 Mechanical Ventilator 15.0 45 03/08/18 12:30 98.0 101 16 92/34 100 Mechanical Ventilator 15.0 45 03/08/18 11:57 98.0 101 16 86/42 100 Mechanical Ventilator 15.0 45 03/08/18 11:53 106 16 45 Height (Feet): 5 Height (Inches): 10.00 Weight (Pounds): 165 HEENT: other - orally intubated, dry mouth Respiratory/Chest: lungs clear, other - on ventilator Cardiovascular: normal rate, other - R femoral central line Abdomen: soft, non tender, other - GT feeding Extremities: no edema Neurologic/Psychiatric: unresponsiveness Microbiology Date/Time Source Procedure Growth Status 03/08/18 11:46 Urine,Clean Catch Urine Culture - Preliminary Staphylococcus Aureus Gram Negative Bacillus 1 Resulted 03/08/18 10:20 Rectal Mucosa Received Laboratory Tests Test 03/08/18 11:04 03/08/18 11:46 03/08/18 16:00 03/08/18 17:39 Arterial Blood pH 7.441 (7.350-7.450) 7.390 (7.350-7.450) Arterial Blood Partial Pressure CO2 17.6 mmHg (35.0-45.0) *L 24.5 mmHg (35.0-45.0) *L Arterial Blood Partial Pressure O2 188.8 mmHg (75.0-100.0) H 156.2 mmHg (75.0-100.0) H Arterial Blood HCO3 11.7 mmol/L (22.0-26.0) *L 14.8 mmol/L (22.0-26.0) *L Arterial Blood Oxygen Saturation 99.0 % (95-100) 98.5 % (95-100) Arterial Blood Base Excess -11.0 (-2-2) *L -8.7 (-2-2) L Michael Test Positive Positive Urine Color Brown Urine Appearance Very cloudy Urine pH 5 (4.5-8.0) Urine Specific [place] 1.020 (1.005-1.035) Urine Protein 3+ (NEGATIVE) H Urine Glucose (UA) Negative (NEGATIVE) Urine Ketones Negative (NEGATIVE) Urine Blood 5+ (NEGATIVE) H Urine Nitrite Negative (NEGATIVE) Urine Bilirubin Negative (NEGATIVE) Urine Urobilinogen Normal MG/DL (0.0-1.0) Urine Leukocyte Esterase 3+ (NEGATIVE) H Urine RBC 40-60 /HPF (0 - 2) H Urine WBC Tntc /HPF (0 - 2) H Urine Squamous Epithelial Cells Occasional /LPF Urine Transitional Epithelial Cells /LPF (NONE) Urine Bacteria Many /HPF (NONE) H Hemoglobin A1c 9.3 % (4.3-6.0) H Lactic Acid Level 2.00 mmol/L (0.4-2.0) Troponin I 0.437 ng/mL (0.000-0.056) Thyroid Stimulating Hormone (TSH) 1.261 uiU/mL (0.358-3.740) Cortisol Pending Test 03/09/18 05:23 03/09/18 05:27 White Blood Count 12.1 K/UL (4.8-10.8) H Red Blood Count 3.11 M/UL (4.20-5.40) L Hemoglobin 8.5 G/DL (12.0-16.0) L Hematocrit 26.4 % (37.0-47.0) L Mean Corpuscular Volume 85 FL (80-99) Mean Corpuscular Hemoglobin 27.5 PG (27.0-31.0) Mean Corpuscular Hemoglobin Concent 32.3 G/DL (32.0-36.0) Red Cell Distribution Width 14.0 % (11.6-14.8) Platelet Count 168 K/UL (150-450) Mean Platelet Volume 10.9 FL (6.5-10.1) H Neutrophils (%) (Auto) 78.6 % (45.0-75.0) H Lymphocytes (%) (Auto) 9.4 % (20.0-45.0) L Monocytes (%) (Auto) 11.0 % (1.0-10.0) H Eosinophils (%) (Auto) 0.5 % (0.0-3.0) Basophils (%) (Auto) 0.5 % (0.0-2.0) Differential Total Cells Counted 100 Neutrophils % (Manual) 83 % (45-75) H Lymphocytes % (Manual) 8 % (20-45) L Monocytes % (Manual) 8 % (1-10) Eosinophils % (Manual) 1 % (0-3) Basophils % (Manual) 0 % (0-2) Band Neutrophils 0 % (0-8) Platelet Estimate Adequate Platelet Morphology Normal Ovalocytes 1+ [place] Cells 1+ Acanthocytes 1+ Erythrocyte Sedimentation Rate 114 MM/HR (0-30) H Prothrombin Time 11.0 SEC (9.30-11.50) Prothromb Time International Ratio 1.0 (0.9-1.1) Activated Partial Thromboplast Time 48 SEC (23-33) H Sodium Level 143 MMOL/L (136-145) Potassium Level 3.6 MMOL/L (3.5-5.1) Chloride Level 111 MMOL/L (98-107) H Carbon Dioxide Level 17 MMOL/L (21-32) L Anion Gap 15 mmol/L (5-15) Blood Urea Nitrogen 116 mg/dL (7-18) H Creatinine 4.1 MG/DL (0.55-1.30) H Estimat Glomerular Filtration Rate mL/min (>60) Glucose Level 270 MG/DL (74-106) H Uric Acid Pending Calcium Level 7.6 MG/DL (8.5-10.1) L Iron Level 16 ug/dL (50-175) L Total Iron Binding Capacity 109 ug/dL (250-450) L Percent Iron Saturation 15 % (15-50) Unsaturated Iron Binding 93 ug/dL (112-346) L Ferritin 284 NG/ML (8-388) Total Bilirubin 0.2 MG/DL (0.2-1.0) Gamma Glutamyl Transpeptidase Pending Aspartate Amino Transf (AST/SGOT) 46 U/L (15-37) H Alanine Aminotransferase (ALT/SGPT) 91 U/L (12-78) H Alkaline Phosphatase 132 U/L (46-116) H Lactate Dehydrogenase 260 U/L (81-234) H Total Creatine Kinase Pending C-Reactive Protein, Quantitative Pending Total Protein 5.7 G/DL (6.4-8.2) L Albumin 1.5 G/DL (3.4-5.0) L Globulin 4.2 g/dL Albumin/Globulin Ratio 0.4 (1.0-2.7) L Triglycerides Level Pending Cholesterol Level Pending LDL Cholesterol Pending HDL Cholesterol Pending Cholesterol/HDL Ratio Pending Lipase Pending Vitamin B12 Level 1374 PG/ML (193-986) H Folate 55.6 NG/ML (8.6-58.9) Homocystine Pending Cortisol AM Sample Pending Reticulocyte Count 1.4 % (0.0-2.0) Current Medications Medications (Trade) Dose Ordered Sig/Gelacio Route PRN Reason Start Time Stop Time Status Last Admin Dose Admin Acetaminophen (Tylenol) 650 mg Q6H PRN GT FEVER 03/08/18 15:15 04/07/18 15:14 Albumin Human 500 ml @ 0 mls/hr Q0M IV 03/09/18 11:00 03/09/18 12:00 Albuterol/ Ipratropium (Albuterol/ Ipratropium) 3 ml Q4H PRN HHN Shortness of Breath 03/08/18 15:15 03/13/18 15:14 Aspirin (ASA) 81 mg DAILY NG 03/09/18 09:00 04/08/18 08:59 03/09/18 09:52 Atorvastatin Calcium (Lipitor) 10 mg BEDTIME GT 03/08/18 21:00 04/07/18 20:59 03/08/18 20:46 Chlorhexidine Gluconate (Xiomara-Hex 2%) 1 applic DAILY@2000 TOPIC 03/08/18 22:30 04/08/18 22:29 03/08/18 23:05 Dextrose (Dextrose 50%) 25 ml Q30M PRN IV Hypoglycemia 03/08/18 15:15 04/07/18 15:14 Dextrose (Dextrose 50%) 50 ml Q30M PRN IV Hypoglycemia 03/08/18 15:15 04/07/18 15:14 Dextrose/Sodium Chloride 1,000 ml @ 50 mls/hr Q20H IV 03/08/18 15:06 04/07/18 15:05 03/08/18 15:06 Heparin Sodium (Porcine) (Heparin 5000 units/ml) 5,000 units EVERY 12 HOURS SUBQ 03/08/18 21:00 04/07/18 20:59 03/09/18 09:53 Insulin Aspart (NovoLOG) BEFORE MEALS AND HS SUBQ 03/08/18 16:30 04/07/18 16:29 03/09/18 05:45 Levetiracetam (Keppra) 750 mg Q12HR GT 03/08/18 21:00 04/07/18 20:59 03/09/18 09:53 Norepinephrine Bitartrate 4 mg/ Dextrose 250 ml @ 0 mls/hr Q24H IV 03/08/18 20:34 04/07/18 20:33 03/08/18 22:02 Ondansetron HCl (Zofran) 4 mg Q6H PRN IVP Nausea & Vomiting 03/08/18 15:15 04/07/18 15:14 Pantoprazole (Protonix) 40 mg EVERY 12 HOURS IVP 03/08/18 21:00 04/07/18 20:59 03/09/18 09:53 Piperacillin Sod/ Tazobactam Sod 2.25 gm/Dextrose 55 ml @ 110 mls/hr Q8HR IV 03/08/18 22:00 03/13/18 21:59 03/09/18 05:44 Wilder French MD Mar 09, 2018 11:08
--- NOTE | 2018-03-09 11:13 | Consultation ---
Consult Note Consult Note asked to eval for renal failure- Patient presents via EMS. Hot, hypotensive and tachypnea. Has shaver. Ill for 1 day. No vomiting. Fluid bolus in field with some improvement. Patient full code. Has PEG and indwelling shaver. No other history available. Allergies: PENICILLINS (Unverified Allergy, Mild, 12/04/12) Past Surgical History: charlene, hysterectomy, other - cataract surgery Social History Narrative at [facility] Past Medical History: No History, Except For Hx Cardiac Problems: No - hypokalemia, dehydration, hyperlipidemia Hx Hypertension: Yes Hx Diabetes: Yes Hx Gastrointestinal Problems: No - dysphagia, g-tube Hx Dialysis: No - chronic kidney failure Hx Seizures: Yes intubated in ICU examined discussed with networking administrator/Plan acute on chronic renal failure: Oliguric ATN Hypotension? due to sepsis: Shock Acute respiratory failure PEG DM Shock liver 2D echo Albumin bolus pulm support urine studies avoid Nephrotoxics Monitor renal parameters Phil Ortiz MD Mar 09, 2018 11:13
[2018-03-09 11:15] LABS: CHOLESTEROL 109 MG/DL (< 200); CREATINE KINASE 807 U/L (26-308); GAMMA GLUTAMYL TRANSPEPTIDASE 103 U/L (5-85); HDL CHOLESTEROL 33 MG/DL (40-60); TRIGLYCERIDES 112 MG/DL (30-150)
[2018-03-09] MEDS: D5NS 1,000 ML IV SCH (11:40)
[2018-03-09] MEDS: Piperacillin/Tazobactam 3.375 GM in D5W 110 ML IVPB SCH (15:00)
--- NOTE | 2018-03-09 15:24 | General Surgery Progress Note ---
General Surgery-Progress Note Subjective Additional Comments intubated on vent. unresponsive in ICU. labs noted Objective Last 24 Hour Vital Signs Date Time Temp Pulse Resp B/P (MAP) Pulse Ox O2 Delivery O2 Flow Rate FiO2 03/09/18 14:57 78 19 30 03/09/18 14:00 72 17 101/81 (88) 100 03/09/18 13:30 67 16 125/43 (70) 100 03/09/18 13:00 73 16 122/45 (70) 100 03/09/18 13:00 122/45 03/09/18 12:53 102/54 03/09/18 12:45 75 20 30 03/09/18 12:30 64 16 89/38 (55) 100 03/09/18 12:08 15.0 30 03/09/18 12:00 65 03/09/18 12:00 66 16 125/43 (70) 100 03/09/18 12:00 Mechanical Ventilator 03/09/18 12:00 125/43 03/09/18 11:30 98.8 69 15 106/40 (62) 100 03/09/18 11:00 66 16 107/43 (64) 100 03/09/18 11:00 107/43 03/09/18 10:45 68 16 113/44 (67) 100 03/09/18 10:42 69 16 30 03/09/18 10:30 76 17 108/61 (77) 100 03/09/18 10:15 72 15 105/73 (84) 100 03/09/18 10:00 87/65 03/09/18 10:00 73 17 84/65 (71) 100 03/09/18 09:31 72 16 30 03/09/18 09:30 71 16 96/47 (63) 100 03/09/18 09:00 70 16 102/37 (58) 100 03/09/18 09:00 102/37 03/09/18 09:00 15.0 30 03/09/18 08:30 73 16 96/37 (56) 100 03/09/18 08:02 74 21 30 03/09/18 08:00 98.8 69 16 105/39 (61) 100 03/09/18 08:00 Mechanical Ventilator 03/09/18 08:00 77 03/09/18 08:00 105/39 03/09/18 07:30 71 17 100/36 (57) 100 03/09/18 07:00 73 16 96/35 (55) 100 03/09/18 07:00 96/35 03/09/18 06:30 71 16 102/34 (56) 100 03/09/18 06:00 111/37 03/09/18 06:00 72 16 111/37 (61) 100 03/09/18 05:45 74 16 113/70 (84) 100 03/09/18 05:30 71 16 118/39 (65) 100 03/09/18 05:21 69 16 30 03/09/18 05:15 69 16 102/77 (85) 100 03/09/18 05:00 71 17 109/85 (93) 100 03/09/18 05:00 109/85 03/09/18 04:45 72 20 114/38 (63) 100 03/09/18 04:30 73 16 114/41 (65) 100 03/09/18 04:00 98.4 70 16 115/36 (62) 100 03/09/18 04:00 115/36 03/09/18 04:00 15.0 30 03/09/18 04:00 70 03/09/18 04:00 Mechanical Ventilator 03/09/18 03:20 71 16 30 03/09/18 03:00 119/55 03/09/18 03:00 70 16 119/55 (76) 100 03/09/18 02:45 72 16 85/55 (65) 100 03/09/18 02:30 74 16 129/93 (105) 100 03/09/18 02:15 72 16 118/38 (64) 100 03/09/18 02:00 71 16 140/51 (80) 100 03/09/18 02:00 140/51 03/09/18 01:45 72 16 94/59 (71) 100 03/09/18 01:30 72 16 110/42 (64) 100 03/09/18 01:16 72 16 30 03/09/18 01:15 73 16 112/40 (64) 100 03/09/18 01:00 72 16 123/40 (67) 100 03/09/18 01:00 123/44 03/09/18 00:30 71 16 116/41 (66) 100 03/09/18 00:00 99.0 72 16 114/40 (64) 100 03/09/18 00:00 15.0 30 03/09/18 00:00 114/40 03/09/18 00:00 74 03/09/18 00:00 Mechanical Ventilator 03/08/18 23:30 73 16 124/41 (68) 100 03/08/18 23:00 111/38 03/08/18 23:00 73 16 111/38 (62) 100 03/08/18 22:57 71 16 30 03/08/18 22:30 73 16 101/46 (64) 100 03/08/18 22:02 118/42 03/08/18 22:00 118/42 03/08/18 22:00 75 16 118/42 (67) 100 03/08/18 21:45 75 16 114/41 (65) 100 03/08/18 21:30 75 16 115/46 (69) 100 03/08/18 21:15 76 16 113/43 (66) 100 03/08/18 21:00 73 16 105/36 (59) 100 03/08/18 21:00 105/36 03/08/18 20:57 74 16 30 03/08/18 20:45 76 16 117/42 (67) 100 03/08/18 20:30 77 16 117/43 (67) 100 03/08/18 20:15 79 16 103/44 (63) 100 03/08/18 20:00 15.0 30 03/08/18 20:00 121/42 03/08/18 20:00 77 16 121/42 (68) 100 03/08/18 20:00 76 03/08/18 19:56 15.0 30 03/08/18 19:50 Mechanical Ventilator 03/08/18 19:45 78 16 121/46 (71) 100 03/08/18 19:30 77 16 106/41 (62) 100 03/08/18 19:15 77 16 120/42 (68) 100 03/08/18 19:07 77 16 30 03/08/18 19:00 77 16 99/40 (59) 100 03/08/18 18:52 Mechanical Ventilator 03/08/18 16:42 86 16 40 03/08/18 15:40 97.8 112 17 102/45 100 Mechanical Ventilator 15.0 40 03/08/18 15:40 96 17 40 I&O Intake and Output 03/08/18 03/09/18 19:00 07:00 Intake Total 2925 ml 992.5 ml Output Total 500 ml Balance 2925 ml 492.5 ml Intake Free Water 20 ml IV Total 2925 ml 972.5 ml Output Urine Total 490 ml Gastric Drainage Total 10 ml # Voids 1 # Bowel Movements 1 4 Dressing: other Wound: other Drains: other Cardiovascular: RSR Respiratory: decreased breath sounds Abdomen: soft, flat, present bowel sounds Extremities: other Laboratory Tests Test 03/08/18 16:00 03/08/18 17:39 03/09/18 05:23 03/09/18 05:27 Hemoglobin A1c 9.3 % (4.3-6.0) H Lactic Acid Level 2.00 mmol/L (0.4-2.0) Troponin I 0.437 ng/mL (0.000-0.056) Thyroid Stimulating Hormone (TSH) 1.261 uiU/mL (0.358-3.740) Cortisol Pending Arterial Blood pH 7.390 (7.350-7.450) Arterial Blood Partial Pressure CO2 24.5 mmHg (35.0-45.0) *L Arterial Blood Partial Pressure O2 156.2 mmHg (75.0-100.0) H Arterial Blood HCO3 14.8 mmol/L (22.0-26.0) *L Arterial Blood Oxygen Saturation 98.5 % (95-100) Arterial Blood Base Excess -8.7 (-2-2) L Michael Test Positive White Blood Count 12.1 K/UL (4.8-10.8) H Red Blood Count 3.11 M/UL (4.20-5.40) L Hemoglobin 8.5 G/DL (12.0-16.0) L Hematocrit 26.4 % (37.0-47.0) L Mean Corpuscular Volume 85 FL (80-99) Mean Corpuscular Hemoglobin 27.5 PG (27.0-31.0) Mean Corpuscular Hemoglobin Concent 32.3 G/DL (32.0-36.0) Red Cell Distribution Width 14.0 % (11.6-14.8) Platelet Count 168 K/UL (150-450) Mean Platelet Volume 10.9 FL (6.5-10.1) H Neutrophils (%) (Auto) 78.6 % (45.0-75.0) H Lymphocytes (%) (Auto) 9.4 % (20.0-45.0) L Monocytes (%) (Auto) 11.0 % (1.0-10.0) H Eosinophils (%) (Auto) 0.5 % (0.0-3.0) Basophils (%) (Auto) 0.5 % (0.0-2.0) Differential Total Cells Counted 100 Neutrophils % (Manual) 83 % (45-75) H Lymphocytes % (Manual) 8 % (20-45) L Monocytes % (Manual) 8 % (1-10) Eosinophils % (Manual) 1 % (0-3) Basophils % (Manual) 0 % (0-2) Band Neutrophils 0 % (0-8) Platelet Estimate Adequate Platelet Morphology Normal Ovalocytes 1+ [place] Cells 1+ Acanthocytes 1+ Erythrocyte Sedimentation Rate 114 MM/HR (0-30) H Prothrombin Time 11.0 SEC (9.30-11.50) Prothromb Time International Ratio 1.0 (0.9-1.1) Activated Partial Thromboplast Time 48 SEC (23-33) H Sodium Level 143 MMOL/L (136-145) Potassium Level 3.6 MMOL/L (3.5-5.1) Chloride Level 111 MMOL/L (98-107) H Carbon Dioxide Level 17 MMOL/L (21-32) L Anion Gap 15 mmol/L (5-15) Blood Urea Nitrogen 116 mg/dL (7-18) H Creatinine 4.1 MG/DL (0.55-1.30) H Estimat Glomerular Filtration Rate mL/min (>60) Glucose Level 270 MG/DL (74-106) H Uric Acid 7.6 MG/DL (2.6-7.2) H Calcium Level 7.6 MG/DL (8.5-10.1) L Iron Level 16 ug/dL (50-175) L Total Iron Binding Capacity 109 ug/dL (250-450) L Percent Iron Saturation 15 % (15-50) Unsaturated Iron Binding 93 ug/dL (112-346) L Ferritin 284 NG/ML (8-388) Total Bilirubin 0.2 MG/DL (0.2-1.0) Gamma Glutamyl Transpeptidase 103 U/L (5-85) H Aspartate Amino Transf (AST/SGOT) 46 U/L (15-37) H Alanine Aminotransferase (ALT/SGPT) 91 U/L (12-78) H Alkaline Phosphatase 132 U/L (46-116) H Lactate Dehydrogenase 260 U/L (81-234) H Total Creatine Kinase 807 U/L (26-308) H C-Reactive Protein, Quantitative 25.4 mg/dL (0.00-0.90) H Total Protein 5.7 G/DL (6.4-8.2) L Albumin 1.5 G/DL (3.4-5.0) L Globulin 4.2 g/dL Albumin/Globulin Ratio 0.4 (1.0-2.7) L Triglycerides Level 112 MG/DL (30-150) Cholesterol Level 109 MG/DL (< 200) LDL Cholesterol 56 mg/dL (<100) HDL Cholesterol 33 MG/DL (40-60) L Cholesterol/HDL Ratio 3.3 (3.3-4.4) Lipase 135 U/L (73-393) Vitamin B12 Level 1374 PG/ML (193-986) H Folate 55.6 NG/ML (8.6-58.9) Homocystine Pending Cortisol AM Sample Pending Reticulocyte Count 1.4 % (0.0-2.0) Test 03/09/18 12:00 Urine Random Sodium 36 mmol/L (20-110) Plan Problems: (1) Abnormal LFTs Assessment & Plan: likely shock liver from overt sepsis. trend labs abdominal ultrasound (2) Decubitus ulcer of sacral region, unstageable Assessment & Plan: full thickness pressure injury (L)4cm x(W)3.4cm with approx 80% yellow slough ,otherwise pink ,(+) maceration.Hyperpigmentation periwound bordered by darker skin tone. DTPI noted to L heel oozing small amt serosanguineous exudate (L)6cm x (W)9cm.Wound bed fluctuant.DTPI noted to medial R heel (L)2cm x (W)2.5cm dry area noted along border but wound is fluctuant centrally. present upon admission. will be cared for during hospital stay Tx.Plan: Cleanse sacral wound with Saline.Apply Therahoney gel .Apply Cavilon to borders .Cover with Optifoam drsg Daily and prn. Apply Cavilon wipe to R and L heels. Cover with Biatain drsg.Change prn. Reposition at least every 2hours or as tolerated. Off-load heels with pillow. (3) Severe sepsis Jean Marie Park Mar 09, 2018 15:24
--- NOTE | 2018-03-09 19:49 | Consultation ---
History of Present Illness General Chief Complaint: Altered Level of Consciousness Present Illness HPI 85-year-old woman, who is on a ventilator with tracheostomy, who was brought into the hospital with ascites and arrhythmias. the pt is confused and agitated. the pt ow waxing and waning of conciseness Allergies: Coded Allergies: PENICILLINS (Unverified Allergy, Mild, 12/04/12) Medication History Scheduled Acetaminophen With Codeine (T#3) (Tylenol #3 Tab*), 1 TAB ORAL PRN, (Reported) Amino Acids/Protein Hydrolys (Pro-Stat Liquid), 30 ML GT DAILY, (Reported) Amlodipine Besylate (Norvasc), 5 MG GT DAILY, (Reported) Aspirin* (Aspir 81*), 81 MG GT DAILY, (Reported) Aspirin/Dipyridamole* (Aggrenox 25 Mg-200 Mg Capsule*), 1 CAP ORAL TWICE A DAY, (Reported) Atorvastatin Calcium* (Atorvastatin Calcium*), 10 MG GT BEDTIME, (Reported) Calcium Carbonate/Vitamin D3 (Calcium 500 + Vit D 200 Caplet), 1 EACH PO BID, ( Reported) Clonidine Hcl* (Catapres*), 0.1 MG GT EVERY 6 HOURS, (Reported) Dipyridamole/Aspirin (Aggrenox 25 mg-200 mg Capsule), 1 CAP ORAL TWICE A DAY, ( Reported) Docusate Sodium* (Docusate Sodium*), 100 MG ORAL TWICE A DAY, (Reported) Ferrous Sulfate* (Ferrous Sulfate*), 325 MG ORAL TWICE A DAY, (Reported) Gabapentin* (Neurontin*), 100 MG GT THREE TIMES A DAY, (Reported) Insulin Detemir (Levemir Flexpen), 12 UNIT SUBQ Q12HR, (Reported) Insulin Detemir (Levemir), 30 SUBQ BEDTIME, (Reported) Levetiracetam* (Levetiracetam*), 7.5 ML GT BID, (Reported) Losartan Potassium* (Cozaar*), 50 MG ORAL TWICE A DAY, (Reported) Meclizine Hcl* (Meclizine*), 25 MG ORAL THREE TIMES A DAY, (Reported) Metoprolol Tartrate* (Metoprolol Tartrate*), 50 MG ORAL EVERY 12 HOURS, ( Reported) Multivitamin with Minerals (Multivitamins with Minerals), 1 TAB GT DAILY, ( Reported) Nut.tx.impaired Renal Fxn,Soy (Nepro Carb Steady), 40 ML GT Q12HR, (Reported) Pantoprazole (Pantoprazole), 40 MG GT DAILY, (Reported) Polyethylene Glycol 3350* (Miralax*), 17 GM ORAL HS, (Reported) Polyethylene Glycol 3350* (Miralax*), 17 GM ORAL DAILY, (Reported) Potassium (Potassium), 8 MEQ PO DAILY, (Reported) Sucralfate* (Carafate*), 1 GM GT TID, (Reported) Vit B Cmplx 3/Fa/Vit C/Biotin (Sasha-Hannah Rx Tablet), 1 EACH PO DAILY, (Reported) Scheduled PRN Acetaminophen* (Acetaminophen 325MG Tablet*), 650 MG GT Q4H PRN for Pain Scale ( 3-5), (Reported) Zolpidem Tartrate* (Ambien*), 5 MG ORAL BEDTIME PRN for Insomnia, (Reported) Miscellaneous Medications Cranberry (Cranberry), 450 MG PO, (Reported) Insulin Lispro (Humalog), Unknown Dose SUBQ, (Reported) Mag Hydrox/Al Hydrox/Simeth (Alum-Mag Hydroxide-Simeth Liq), 360 ML PO, ( Reported) Sennosides (Patti-Elpidio), 8.6 MG PO, (Reported) Patient History Limited by: medical condition History Provided By: Medical Record, PMD Healthcare decision maker Suad mohamud Resuscitation status Full Code Advanced Directive on File Yes Past Medical/Surgical History Past Medical/Surgical History: (1) Seizure disorder (2) CKD (chronic kidney disease) (3) MARK (acute kidney injury) (4) Sepsis (5) Hypertension (6) Abnormal LFTs (7) Decubitus ulcer of sacral region, unstageable (8) Hyperglycemia (9) Metabolic acidosis (10) Renal failure (ARF), acute on chronic (11) Anemia (12) Respiratory failure (13) UTI (urinary tract infection) (14) Severe sepsis (15) NSTEMI (non-ST elevated myocardial infarction) Review of Systems Psychiatric: Reports: anxiety, emotional problems, hallucinations Physical Exam General Appearance: confused, moderate distress, agitated Last 24 Hour Vital Signs Date Time Temp Pulse Resp B/P (MAP) Pulse Ox O2 Delivery O2 Flow Rate FiO2 10//18 19:07 73 17 30 03/09/18 18:30 74 17 118/41 (66) 100 03/09/18 18:00 76 16 122/48 (72) 100 03/09/18 18:00 122/48 03/09/18 17:30 75 17 123/47 (72) 100 03/09/18 17:00 73 17 114/69 (84) 100 03/09/18 17:00 113/55 03/09/18 16:34 71 16 30 03/09/18 16:30 69 16 119/58 (78) 100 03/09/18 16:00 71 03/09/18 16:00 15.0 30 03/09/18 16:00 Mechanical Ventilator 03/09/18 16:00 116/69 03/09/18 16:00 99.6 69 16 121/44 (69) 100 03/09/18 15:30 68 16 114/41 (65) 100 03/09/18 15:00 113/55 03/09/18 15:00 71 23 113/55 (74) 100 03/09/18 14:57 78 19 30 03/09/18 14:30 73 17 112/56 (74) 100 03/09/18 14:00 101/81 03/09/18 14:00 72 17 101/81 (88) 100 03/09/18 13:30 67 16 125/43 (70) 100 03/09/18 13:00 73 16 122/45 (70) 100 03/09/18 13:00 122/45 03/09/18 12:53 102/54 03/09/18 12:45 75 20 30 03/09/18 12:30 64 16 89/38 (55) 100 03/09/18 12:08 15.0 30 03/09/18 12:00 65 03/09/18 12:00 66 16 125/43 (70) 100 03/09/18 12:00 Mechanical Ventilator 03/09/18 12:00 125/43 03/09/18 11:30 98.8 69 15 106/40 (62) 100 03/09/18 11:00 66 16 107/43 (64) 100 03/09/18 11:00 107/43 03/09/18 10:45 68 16 113/44 (67) 100 03/09/18 10:42 69 16 30 03/09/18 10:30 76 17 108/61 (77) 100 03/09/18 10:15 72 15 105/73 (84) 100 03/09/18 10:00 87/65 03/09/18 10:00 73 17 84/65 (71) 100 03/09/18 09:31 72 16 30 03/09/18 09:30 71 16 96/47 (63) 100 03/09/18 09:00 70 16 102/37 (58) 100 03/09/18 09:00 102/37 03/09/18 09:00 15.0 30 03/09/18 08:30 73 16 96/37 (56) 100 03/09/18 08:02 74 21 30 03/09/18 08:00 98.8 69 16 105/39 (61) 100 03/09/18 08:00 Mechanical Ventilator 03/09/18 08:00 77 03/09/18 08:00 105/39 03/09/18 07:30 71 17 100/36 (57) 100 03/09/18 07:00 73 16 96/35 (55) 100 03/09/18 07:00 96/35 03/09/18 06:30 71 16 102/34 (56) 100 03/09/18 06:00 111/37 03/09/18 06:00 72 16 111/37 (61) 100 03/09/18 05:45 74 16 113/70 (84) 100 03/09/18 05:30 71 16 118/39 (65) 100 03/09/18 05:21 69 16 30 03/09/18 05:15 69 16 102/77 (85) 100 03/09/18 05:00 71 17 109/85 (93) 100 03/09/18 05:00 109/85 03/09/18 04:45 72 20 114/38 (63) 100 03/09/18 04:30 73 16 114/41 (65) 100 03/09/18 04:00 98.4 70 16 115/36 (62) 100 03/09/18 04:00 115/36 03/09/18 04:00 15.0 30 03/09/18 04:00 70 03/09/18 04:00 Mechanical Ventilator 03/09/18 03:20 71 16 30 03/09/18 03:00 119/55 03/09/18 03:00 70 16 119/55 (76) 100 03/09/18 02:45 72 16 85/55 (65) 100 03/09/18 02:30 74 16 129/93 (105) 100 03/09/18 02:15 72 16 118/38 (64) 100 03/09/18 02:00 71 16 140/51 (80) 100 03/09/18 02:00 140/51 03/09/18 01:45 72 16 94/59 (71) 100 03/09/18 01:30 72 16 110/42 (64) 100 03/09/18 01:16 72 16 30 03/09/18 01:15 73 16 112/40 (64) 100 03/09/18 01:00 72 16 123/40 (67) 100 03/09/18 01:00 123/44 03/09/18 00:30 71 16 116/41 (66) 100 03/09/18 00:00 99.0 72 16 114/40 (64) 100 03/09/18 00:00 15.0 30 03/09/18 00:00 114/40 03/09/18 00:00 74 03/09/18 00:00 Mechanical Ventilator 03/08/18 23:30 73 16 124/41 (68) 100 03/08/18 23:00 111/38 03/08/18 23:00 73 16 111/38 (62) 100 03/08/18 22:57 71 16 30 03/08/18 22:30 73 16 101/46 (64) 100 03/08/18 22:02 118/42 03/08/18 22:00 118/42 03/08/18 22:00 75 16 118/42 (67) 100 03/08/18 21:45 75 16 114/41 (65) 100 03/08/18 21:30 75 16 115/46 (69) 100 03/08/18 21:15 76 16 113/43 (66) 100 03/08/18 21:00 73 16 105/36 (59) 100 03/08/18 21:00 105/36 03/08/18 20:57 74 16 30 03/08/18 20:45 76 16 117/42 (67) 100 03/08/18 20:30 77 16 117/43 (67) 100 03/08/18 20:15 79 16 103/44 (63) 100 03/08/18 20:00 15.0 30 03/08/18 20:00 121/42 03/08/18 20:00 77 16 121/42 (68) 100 03/08/18 20:00 76 03/08/18 19:56 15.0 30 03/08/18 19:50 Mechanical Ventilator Intake and Output 03/08/18 03/09/18 19:00 07:00 Intake Total 2925 ml 992.5 ml Output Total 500 ml Balance 2925 ml 492.5 ml Intake Free Water 20 ml IV Total 2925 ml 972.5 ml Output Urine Total 490 ml Gastric Drainage Total 10 ml # Voids 1 # Bowel Movements 1 4 Laboratory Tests Test 03/09/18 05:23 03/09/18 05:27 03/09/18 12:00 White Blood Count 12.1 K/UL (4.8-10.8) H Red Blood Count 3.11 M/UL (4.20-5.40) L Hemoglobin 8.5 G/DL (12.0-16.0) L Hematocrit 26.4 % (37.0-47.0) L Mean Corpuscular Volume 85 FL (80-99) Mean Corpuscular Hemoglobin 27.5 PG (27.0-31.0) Mean Corpuscular Hemoglobin Concent 32.3 G/DL (32.0-36.0) Red Cell Distribution Width 14.0 % (11.6-14.8) Platelet Count 168 K/UL (150-450) Mean Platelet Volume 10.9 FL (6.5-10.1) H Neutrophils (%) (Auto) 78.6 % (45.0-75.0) H Lymphocytes (%) (Auto) 9.4 % (20.0-45.0) L Monocytes (%) (Auto) 11.0 % (1.0-10.0) H Eosinophils (%) (Auto) 0.5 % (0.0-3.0) Basophils (%) (Auto) 0.5 % (0.0-2.0) Differential Total Cells Counted 100 Neutrophils % (Manual) 83 % (45-75) H Lymphocytes % (Manual) 8 % (20-45) L Monocytes % (Manual) 8 % (1-10) Eosinophils % (Manual) 1 % (0-3) Basophils % (Manual) 0 % (0-2) Band Neutrophils 0 % (0-8) Platelet Estimate Adequate Platelet Morphology Normal Ovalocytes 1+ [place] Cells 1+ Acanthocytes 1+ Erythrocyte Sedimentation Rate 114 MM/HR (0-30) H Prothrombin Time 11.0 SEC (9.30-11.50) Prothromb Time International Ratio 1.0 (0.9-1.1) Activated Partial Thromboplast Time 48 SEC (23-33) H Sodium Level 143 MMOL/L (136-145) Potassium Level 3.6 MMOL/L (3.5-5.1) Chloride Level 111 MMOL/L (98-107) H Carbon Dioxide Level 17 MMOL/L (21-32) L Anion Gap 15 mmol/L (5-15) Blood Urea Nitrogen 116 mg/dL (7-18) H Creatinine 4.1 MG/DL (0.55-1.30) H Estimat Glomerular Filtration Rate mL/min (>60) Glucose Level 270 MG/DL (74-106) H Uric Acid 7.6 MG/DL (2.6-7.2) H Calcium Level 7.6 MG/DL (8.5-10.1) L Iron Level 16 ug/dL (50-175) L Total Iron Binding Capacity 109 ug/dL (250-450) L Percent Iron Saturation 15 % (15-50) Unsaturated Iron Binding 93 ug/dL (112-346) L Ferritin 284 NG/ML (8-388) Total Bilirubin 0.2 MG/DL (0.2-1.0) Gamma Glutamyl Transpeptidase 103 U/L (5-85) H Aspartate Amino Transf (AST/SGOT) 46 U/L (15-37) H Alanine Aminotransferase (ALT/SGPT) 91 U/L (12-78) H Alkaline Phosphatase 132 U/L (46-116) H Lactate Dehydrogenase 260 U/L (81-234) H Total Creatine Kinase 807 U/L (26-308) H C-Reactive Protein, Quantitative 25.4 mg/dL (0.00-0.90) H Total Protein 5.7 G/DL (6.4-8.2) L Albumin 1.5 G/DL (3.4-5.0) L Globulin 4.2 g/dL Albumin/Globulin Ratio 0.4 (1.0-2.7) L Triglycerides Level 112 MG/DL (30-150) Cholesterol Level 109 MG/DL (< 200) LDL Cholesterol 56 mg/dL (<100) HDL Cholesterol 33 MG/DL (40-60) L Cholesterol/HDL Ratio 3.3 (3.3-4.4) Lipase 135 U/L (73-393) Vitamin B12 Level 1374 PG/ML (193-986) H Folate 55.6 NG/ML (8.6-58.9) Homocystine Pending Cortisol AM Sample Pending Reticulocyte Count 1.4 % (0.0-2.0) Urine Random Sodium 36 mmol/L (20-110) Height (Feet): 5 Height (Inches): 10.00 Weight (Pounds): 165 Medications Current Medications Medications (Trade) Dose Ordered Sig/Gelacio Route PRN Reason Start Time Stop Time Status Last Admin Dose Admin Acetaminophen (Tylenol) 650 mg Q6H PRN GT FEVER 03/08/18 15:15 04/07/18 15:14 Albuterol/ Ipratropium (Albuterol/ Ipratropium) 3 ml Q4H PRN HHN Shortness of Breath 03/08/18 15:15 03/13/18 15:14 Aspirin (ASA) 81 mg DAILY NG 03/09/18 09:00 04/08/18 08:59 03/09/18 09:52 Atorvastatin Calcium (Lipitor) 10 mg BEDTIME GT 03/08/18 21:00 04/07/18 20:59 03/08/18 20:46 Chlorhexidine Gluconate (Xiomara-Hex 2%) 1 applic DAILY@2000 TOPIC 03/08/18 22:30 04/08/18 22:29 03/08/18 23:05 Dextrose (Dextrose 50%) 25 ml Q30M PRN IV Hypoglycemia 03/08/18 15:15 04/07/18 15:14 Dextrose (Dextrose 50%) 50 ml Q30M PRN IV Hypoglycemia 03/08/18 15:15 04/07/18 15:14 Dextrose/Sodium Chloride 1,000 ml @ 50 mls/hr Q20H IV 03/08/18 15:06 04/07/18 15:05 03/09/18 11:40 Heparin Sodium (Porcine) (Heparin 5000 units/ml) 5,000 units EVERY 12 HOURS SUBQ 03/08/18 21:00 04/07/18 20:59 03/09/18 09:53 Insulin Aspart (NovoLOG) BEFORE MEALS AND HS SUBQ 03/08/18 16:30 04/07/18 16:29 03/09/18 16:52 Levetiracetam (Keppra) 750 mg Q12HR GT 03/08/18 21:00 04/07/18 20:59 03/09/18 09:53 Norepinephrine Bitartrate 4 mg/ Dextrose 250 ml @ 0 mls/hr Q24H IV 03/08/18 20:34 04/07/18 20:33 03/09/18 12:53 Ondansetron HCl (Zofran) 4 mg Q6H PRN IVP Nausea & Vomiting 03/08/18 15:15 04/07/18 15:14 Pantoprazole (Protonix) 40 mg EVERY 12 HOURS IVP 03/08/18 21:00 04/07/18 20:59 03/09/18 09:53 Piperacillin Sod/ Tazobactam Sod 3.375 gm/Dextrose 110 ml @ 27.5 mls/hr Q12HR@0300,1500 IVPB 03/09/18 15:00 03/16/18 14:59 03/09/18 15:00 Quetiapine Fumarate (SEROquel) 12.5 mg EVERY 4 HOURS PRN ORAL Agitation 03/09/18 12:45 04/08/18 12:44 Assessment/Plan Problem List: (1) Seizure disorder ICD Codes: G40.909 - Epilepsy, unspecified, not intractable, without status epilepticus SNOMED: 440059290 (2) Encephalopathy due to metabolic factor or toxin SNOMED: [id number] Status: unchanged Assessment/Plan seroquel prn China Kidd MD Mar 09, 2018 19:49
[2018-03-09] MEDS: Dyna-Hex 2% Top Sol 2oz TOPIC SCH (20:22)
--- NOTE | 2018-03-09 20:44 | General Progress Note ---
Assessment/Plan Problem List: (1) CKD (chronic kidney disease) ICD Codes: N18.9 - Chronic kidney disease, unspecified SNOMED: 168284537 (2) MARK (acute kidney injury) ICD Codes: N17.9 - Acute kidney failure, unspecified SNOMED: 78749056 (3) Sepsis ICD Codes: A41.9 - Sepsis, unspecified organism SNOMED: 35266672 (4) Abnormal LFTs ICD Codes: R94.5 - Abnormal results of liver function studies SNOMED: 735019999 (5) Decubitus ulcer of sacral region, unstageable ICD Codes: L89.150 - Pressure ulcer of sacral region, unstageable SNOMED: 283316145, 166664813 (6) Hyperglycemia ICD Codes: R73.9 - Hyperglycemia, unspecified; N18.9 - Chronic kidney disease, unspecified SNOMED: 59959187 (7) Metabolic acidosis ICD Codes: E87.2 - Acidosis; N18.9 - Chronic kidney disease, unspecified SNOMED: 85290851 (8) Renal failure (ARF), acute on chronic ICD Codes: N17.9 - Acute kidney failure, unspecified; N18.9 - Chronic kidney disease, unspecified SNOMED: 070158682 Qualifiers: Qualified Codes: N17.9 - Acute kidney failure, unspecified; N18.4 - Chronic kidney disease, stage 4 (severe) (9) Anemia ICD Codes: D64.9 - Anemia, unspecified SNOMED: 729111921 Qualifiers: Qualified Codes: D64.9 - Anemia, unspecified (10) Respiratory failure ICD Codes: J96.90 - Respiratory failure, unspecified, unspecified whether with hypoxia or hypercapnia SNOMED: 002270871 Qualifiers: Qualified Codes: J96.00 - Acute respiratory failure, unspecified whether with hypoxia or hypercapnia (11) UTI (urinary tract infection) ICD Codes: N39.0 - Urinary tract infection, site not specified SNOMED: 53302307 Qualifiers: Qualified Codes: T83.511A - Infection and inflammatory reaction due to indwelling urethral catheter, initial encounter; N39.0 - Urinary tract infection , site not specified (12) NSTEMI (non-ST elevated myocardial infarction) ICD Codes: I21.4 - Non-ST elevation (NSTEMI) myocardial infarction SNOMED: 690724861 (13) Severe sepsis ICD Codes: A41.9 - Sepsis, unspecified organism; R65.20 - Severe sepsis without septic shock SNOMED: 84133282 (14) Encephalopathy due to metabolic factor or toxin SNOMED: 048922688 Status: unchanged Assessment/Plan respirator failure intubated sepsis pna azotemia dm elev sugar poor prognosis lyte abnormality reviewed chart and labs Subjective ROS Limited/Unobtainable: Yes Constitutional: Reports: diaphoresis Allergies: Coded Allergies: PENICILLINS (Unverified Allergy, Mild, 12/04/12) Objective Last 24 Hour Vital Signs Date Time Temp Pulse Resp B/P (MAP) Pulse Ox O2 Delivery O2 Flow Rate FiO2 03/09/18 19:07 73 17 30 03/09/18 18:30 74 17 118/41 (66) 100 03/09/18 18:00 76 16 122/48 (72) 100 03/09/18 18:00 122/48 03/09/18 17:30 75 17 123/47 (72) 100 03/09/18 17:00 73 17 114/69 (84) 100 03/09/18 17:00 113/55 03/09/18 16:34 71 16 30 03/09/18 16:30 69 16 119/58 (78) 100 03/09/18 16:00 71 03/09/18 16:00 15.0 30 03/09/18 16:00 Mechanical Ventilator 03/09/18 16:00 116/69 03/09/18 16:00 99.6 69 16 121/44 (69) 100 03/09/18 15:30 68 16 114/41 (65) 100 03/09/18 15:00 113/55 03/09/18 15:00 71 23 113/55 (74) 100 03/09/18 14:57 78 19 30 03/09/18 14:30 73 17 112/56 (74) 100 03/09/18 14:00 101/81 03/09/18 14:00 72 17 101/81 (88) 100 03/09/18 13:30 67 16 125/43 (70) 100 03/09/18 13:00 73 16 122/45 (70) 100 03/09/18 13:00 122/45 03/09/18 12:53 102/54 03/09/18 12:45 75 20 30 1026/18 12:30 64 16 89/38 (55) 100 03/09/18 12:08 15.0 30 03/09/18 12:00 65 03/09/18 12:00 66 16 125/43 (70) 100 03/09/18 12:00 Mechanical Ventilator 03/09/18 12:00 125/43 03/09/18 11:30 98.8 69 15 106/40 (62) 100 03/09/18 11:00 66 16 107/43 (64) 100 03/09/18 11:00 107/43 03/09/18 10:45 68 16 113/44 (67) 100 03/09/18 10:42 69 16 30 03/09/18 10:30 76 17 108/61 (77) 100 03/09/18 10:15 72 15 105/73 (84) 100 03/09/18 10:00 87/65 03/09/18 10:00 73 17 84/65 (71) 100 03/09/18 09:31 72 16 30 03/09/18 09:30 71 16 96/47 (63) 100 03/09/18 09:00 70 16 102/37 (58) 100 03/09/18 09:00 102/37 03/09/18 09:00 15.0 30 03/09/18 08:30 73 16 96/37 (56) 100 03/09/18 08:02 74 21 30 03/09/18 08:00 98.8 69 16 105/39 (61) 100 03/09/18 08:00 Mechanical Ventilator 03/09/18 08:00 77 03/09/18 08:00 105/39 03/09/18 07:30 71 17 100/36 (57) 100 03/09/18 07:00 73 16 96/35 (55) 100 03/09/18 07:00 96/35 03/09/18 06:30 71 16 102/34 (56) 100 03/09/18 06:00 111/37 03/09/18 06:00 72 16 111/37 (61) 100 03/09/18 05:45 74 16 113/70 (84) 100 03/09/18 05:30 71 16 118/39 (65) 100 03/09/18 05:21 69 16 30 03/09/18 05:15 69 16 102/77 (85) 100 03/09/18 05:00 71 17 109/85 (93) 100 03/09/18 05:00 109/85 03/09/18 04:45 72 20 114/38 (63) 100 03/09/18 04:30 73 16 114/41 (65) 100 03/09/18 04:00 98.4 70 16 115/36 (62) 100 03/09/18 04:00 115/36 03/09/18 04:00 15.0 30 03/09/18 04:00 70 03/09/18 04:00 Mechanical Ventilator 03/09/18 03:20 71 16 30 03/09/18 03:00 119/55 03/09/18 03:00 70 16 119/55 (76) 100 03/09/18 02:45 72 16 85/55 (65) 100 03/09/18 02:30 74 16 129/93 (105) 100 03/09/18 02:15 72 16 118/38 (64) 100 03/09/18 02:00 71 16 140/51 (80) 100 03/09/18 02:00 140/51 03/09/18 01:45 72 16 94/59 (71) 100 03/09/18 01:30 72 16 110/42 (64) 100 03/09/18 01:16 72 16 30 03/09/18 01:15 73 16 112/40 (64) 100 03/09/18 01:00 72 16 123/40 (67) 100 03/09/18 01:00 123/44 03/09/18 00:30 71 16 116/41 (66) 100 03/09/18 00:00 99.0 72 16 114/40 (64) 100 03/09/18 00:00 15.0 30 03/09/18 00:00 114/40 03/09/18 00:00 74 03/09/18 00:00 Mechanical Ventilator 03/08/18 23:30 73 16 124/41 (68) 100 03/08/18 23:00 111/38 03/08/18 23:00 73 16 111/38 (62) 100 03/08/18 22:57 71 16 30 03/08/18 22:30 73 16 101/46 (64) 100 03/08/18 22:02 118/42 03/08/18 22:00 118/42 03/08/18 22:00 75 16 118/42 (67) 100 03/08/18 21:45 75 16 114/41 (65) 100 03/08/18 21:30 75 16 115/46 (69) 100 03/08/18 21:15 76 16 113/43 (66) 100 03/08/18 21:00 73 16 105/36 (59) 100 03/08/18 21:00 105/36 03/08/18 20:57 74 16 30 03/08/18 20:45 76 16 117/42 (67) 100 Intake and Output 03/08/18 03/09/18 19:00 07:00 Intake Total 2925 ml 992.5 ml Output Total 500 ml Balance 2925 ml 492.5 ml Intake Free Water 20 ml IV Total 2925 ml 972.5 ml Output Urine Total 490 ml Gastric Drainage Total 10 ml # Voids 1 # Bowel Movements 1 4 Laboratory Tests 03/09/18 05:23: White Blood Count 12.1H, Red Blood Count 3.11L, Hemoglobin 8.5L, Hematocrit 26.4L, Mean Corpuscular Volume 85, Mean Corpuscular Hemoglobin 27.5, Mean Corpuscular Hemoglobin Concent 32.3, Red Cell Distribution Width 14.0, Platelet Count 168, Mean Platelet Volume 10.9H, Neutrophils (%) (Auto) 78.6H, Lymphocytes (%) (Auto) 9.4L, Monocytes (%) (Auto) 11.0H, Eosinophils (%) (Auto) 0.5, Basophils (%) (Auto) 0.5, Differential Total Cells Counted 100, Neutrophils % (Manual) 83H, Lymphocytes % (Manual) 8L, Monocytes % (Manual) 8, Eosinophils % (Manual) 1, Basophils % (Manual) 0, Band Neutrophils 0, Platelet Estimate Adequate, Platelet Morphology Normal, Ovalocytes 1+, [place] Cells 1+, Acanthocytes 1+, Erythrocyte Sedimentation Rate 114H, Prothrombin Time 11.0, Prothromb Time International Ratio 1.0, Activated Partial Thromboplast Time 48H , Sodium Level 143, Potassium Level 3.6, Chloride Level 111H, Carbon Dioxide Level 17L, Anion Gap 15, Blood Urea Nitrogen 116H, Creatinine 4.1H, Estimat Glomerular Filtration Rate , Glucose Level 270H, Uric Acid 7.6H, Calcium Level 7.6L, Iron Level 16L, Total Iron Binding Capacity 109L, Percent Iron Saturation 15, Unsaturated Iron Binding 93L, Ferritin 284, Total Bilirubin 0.2, Gamma Glutamyl Transpeptidase 103H, Aspartate Amino Transf (AST/SGOT) 46H, Alanine Aminotransferase (ALT/SGPT) 91H, Alkaline Phosphatase 132H, Lactate Dehydrogenase 260H, Total Creatine Kinase 807H, C-Reactive Protein, Quantitative 25.4H, Total Protein 5.7L, Albumin 1.5L, Globulin 4.2, Albumin/ Globulin Ratio 0.4L, Triglycerides Level 112, Cholesterol Level 109, LDL Cholesterol 56, HDL Cholesterol 33L, Cholesterol/HDL Ratio 3.3, Lipase 135, Vitamin B12 Level 1374H, Folate 55.6, Homocystine [Pending], Cortisol AM Sample [Pending] 03/09/18 05:27: Reticulocyte Count 1.4 03/09/18 12:00: Urine Random Sodium 36 Height (Feet): 5 Height (Inches): 10.00 Weight (Pounds): 165 General Appearance: lethargic, confused Respiratory/Chest: lungs clear Krzysztof Schneider MD Mar 09, 2018 20:44
--- NOTE | 2018-03-09 22:23 | Pulmonolgy Critical Care Note ---
Critical Care - Asmt/Plan Assessment/Plan: Critical Care - Asmt/Plan Problems: (1) snf resident (2) Anemia (3) PEG (percutaneous endoscopic gastrostomy) status (4) Seizure disorder (5) CKD (chronic kidney disease) (6) MARK (acute kidney injury) (7) Severe sepsis (8) UTI (urinary tract infection) (9) Respiratory failure (10) NSTEMI (non-ST elevated myocardial infarction) Assessment/Plan: ASSESSMENT: * SIRS/SEPSIS * Shock, likely septic * VDRF * MSOF * MARK on CKD * Abnormal LFT's * NSTEMI, likely demand ischemia * Mild PVC on CXR & elevated BNP but clinically appears dry * ? ADHF * Sz DO * NHR * Bedbound @ baseline * Anemia * S/P GT PLAN: * Admit to ICU * Continue ventilatory support, AC 14 VC 450 PEEP 5, FiO2 40 * Check ABG, adjust vent accordingly * PRN HHN's * Titrate NE to keep MAP > 60 * Monitor volumes, gentle IVF hydration * Monitor renal function, may need HD * Trend ECG/trop * TTE * Cardiology evaluation * Start Vancomycin & Zosyn, F/U Cx's * F/U CX's * Check cortisol, TSH * NPO, hold TF's * Reconcile home meds * Continue AED's * DVT Px: Hep SQ * FC CCT 100 Critical Care - Objective Last 24 Hour Vital Signs Date Time Temp Pulse Resp B/P (MAP) Pulse Ox O2 Delivery O2 Flow Rate FiO2 03/08/18 13:40 104/58 03/08/18 13:40 98.3 101 18 104/58 100 Mechanical Ventilator 15.0 40 03/08/18 13:35 84/47 03/08/18 13:30 98.3 101 18 85/48 100 Mechanical Ventilator 15.0 40 03/08/18 13:30 85/48 03/08/18 13:25 75/41 03/08/18 13:12 107 17 40 03/08/18 13:00 98.0 96 16 86/42 100 Mechanical Ventilator 15.0 45 03/08/18 12:30 98.0 101 16 92/34 100 Mechanical Ventilator 15.0 45 03/08/18 11:57 98.0 101 16 86/42 100 Mechanical Ventilator 15.0 45 03/08/18 11:53 106 16 45 03/08/18 10:54 98 16 93/35 100 Mechanical Ventilator 15.0 50 03/08/18 10:24 121 16 Mechanical Ventilator 50 03/08/18 10:18 111 16 50 03/08/18 10:05 15.0 50 03/08/18 10:00 111 16 Mechanical Ventilator 15.0 50 03/08/18 10:00 111 16 66/32 100 Mechanical Ventilator 15.0 50 03/08/18 09:50 104 22 105/50 100 Non-Rebreather 15.0 Status: other - Intubated, sedated Condition: critical HEENT: atraumatic, normocephalic, other - ETT Lungs: rales - @ bases, o/w CTA Heart: HR/BP unstable Abdomen: soft, non-tender, active bowel sounds, feeding tube Extremities: no C/C/E Micro: Microbiology Date/Time Source Procedure Growth Status 03/08/18 10:20 Rectal Mucosa Received Blood Sugars: BS controlled Critical Care - Subjective ROS Limited/Unobtainable: Yes ICU Day: 1 Intubation Day: 1 Interval Events: 82 F NHR h/o Sz DO, bedbound @ baseline, GT, CKD BIB EMS with AMS Upon arrival to ED BP was borderline and marked respiratory distress, intubated by ERMD W/U thus far suggestive of UROSEPSIS with MSOF ---> MARK on CKD, abnl LFT's and NSTEMI D/W grand-daughter @ bedside, family wants all aggressive measures Condition: critical IV Access: central - R fem CVC EKG Rhythm: Sinus Rhythm FI02: 40 Vent Support Breath Rate: 16 Vent Support Mode: AC Vent Tidal Volume: 550 Sputum Amount: Scant PEEP: 0.0 PIP: 28 Subjective: KARRIE CXR: Mild PVC ET Position: 23 Labs: Laboratory Tests Test 03/08/18 10:00 03/08/18 11:04 03/08/18 11:46 White Blood Count 14.4 K/UL (4.8-10.8) H Red Blood Count 3.39 M/UL (4.20-5.40) L Hemoglobin 9.1 G/DL (12.0-16.0) L Hematocrit 28.5 % (37.0-47.0) L Mean Corpuscular Volume 84 FL (80-99) Mean Corpuscular Hemoglobin 26.9 PG (27.0-31.0) L Mean Corpuscular Hemoglobin Concent 32.0 G/DL (32.0-36.0) Red Cell Distribution Width 13.7 % (11.6-14.8) Platelet Count 169 K/UL (150-450) Mean Platelet Volume 10.3 FL (6.5-10.1) H Neutrophils (%) (Auto) 80.0 % (45.0-75.0) H Lymphocytes (%) (Auto) 9.1 % (20.0-45.0) L Monocytes (%) (Auto) 10.1 % (1.0-10.0) H Eosinophils (%) (Auto) 0.0 % (0.0-3.0) Basophils (%) (Auto) 0.8 % (0.0-2.0) Prothrombin Time 12.0 SEC (9.30-11.50) H Prothromb Time International Ratio 1.1 (0.9-1.1) Activated Partial Thromboplast Time 48 SEC (23-33) H Sodium Level 141 MMOL/L (136-145) Potassium Level 3.5 MMOL/L (3.5-5.1) Chloride Level 109 MMOL/L (98-107) H Carbon Dioxide Level 17 MMOL/L (21-32) L Anion Gap 15 mmol/L (5-15) Blood Urea Nitrogen 126 mg/dL (7-18) H Creatinine 4.3 MG/DL (0.55-1.30) H Estimat Glomerular Filtration Rate mL/min (>60) Glucose Level 296 MG/DL (74-106) H Lactic Acid Level 1.80 mmol/L (0.4-2.0) Calcium Level 8.4 MG/DL (8.5-10.1) L Total Bilirubin 0.2 MG/DL (0.2-1.0) Aspartate Amino Transf (AST/SGOT) 66 U/L (15-37) H Alanine Aminotransferase (ALT/SGPT) 125 U/L (12-78) H Alkaline Phosphatase 159 U/L (46-116) H Total Creatine Kinase 253 U/L (26-308) Troponin I 0.271 ng/mL (0.000-0.056) Pro-B-Type Natriuretic Peptide 26376 pg/mL (0-125) H Total Protein 5.9 G/DL (6.4-8.2) L Albumin 1.6 G/DL (3.4-5.0) L Globulin 4.3 g/dL Albumin/Globulin Ratio 0.4 (1.0-2.7) L Lipase 122 U/L (73-393) Arterial Blood pH 7.441 (7.350-7.450) Arterial Blood Partial Pressure CO2 17.6 mmHg (35.0-45.0) *L Arterial Blood Partial Pressure O2 188.8 mmHg (75.0-100.0) H Arterial Blood HCO3 11.7 mmol/L (22.0-26.0) *L Arterial Blood Oxygen Saturation 99.0 % (95-100) Arterial Blood Base Excess -11.0 (-2-2) *L Michael Test Positive Urine Color Brown Urine Appearance Very cloudy Urine pH 5 (4.5-8.0) Urine Specific [place] 1.020 (1.005-1.035) Urine Protein 3+ (NEGATIVE) H Urine Glucose (UA) Negative (NEGATIVE) Urine Ketones Negative (NEGATIVE) Urine Blood 5+ (NEGATIVE) H Urine Nitrite Negative (NEGATIVE) Urine Bilirubin Negative (NEGATIVE) Urine Urobilinogen Normal MG/DL (0.0-1.0) Urine Leukocyte Esterase 3+ (NEGATIVE) H Urine RBC 40-60 /HPF (0 - 2) H Urine WBC Tntc /HPF (0 - 2) H Urine Squamous Epithelial Cells Occasional /LPF Urine Transitional Epithelial Cells /LPF (NONE) Urine Bacteria Many /HPF (NONE) H Critical Care - Objective Last 24 Hour Vital Signs Date Time Temp Pulse Resp B/P (MAP) Pulse Ox O2 Delivery O2 Flow Rate FiO2 03/09/18 20:58 84 19 30 03/09/18 19:07 73 17 30 03/09/18 18:30 74 17 118/41 (66) 100 03/09/18 18:00 76 16 122/48 (72) 100 03/09/18 18:00 122/48 03/09/18 17:30 75 17 123/47 (72) 100 03/09/18 17:00 73 17 114/69 (84) 100 03/09/18 17:00 113/55 03/09/18 16:34 71 16 30 03/09/18 16:30 69 16 119/58 (78) 100 03/09/18 16:00 71 03/09/18 16:00 15.0 30 03/09/18 16:00 Mechanical Ventilator 03/09/18 16:00 116/69 03/09/18 16:00 99.6 69 16 121/44 (69) 100 03/09/18 15:30 68 16 114/41 (65) 100 03/09/18 15:00 113/55 03/09/18 15:00 71 23 113/55 (74) 100 03/09/18 14:57 78 19 30 03/09/18 14:30 73 17 112/56 (74) 100 03/09/18 14:00 101/81 03/09/18 14:00 72 17 101/81 (88) 100 03/09/18 13:30 67 16 125/43 (70) 100 03/09/18 13:00 73 16 122/45 (70) 100 03/09/18 13:00 122/45 03/09/18 12:53 102/54 03/09/18 12:45 75 20 30 03/09/18 12:30 64 16 89/38 (55) 100 03/09/18 12:08 15.0 30 03/09/18 12:00 65 03/09/18 12:00 66 16 125/43 (70) 100 03/09/18 12:00 Mechanical Ventilator 03/09/18 12:00 125/43 03/09/18 11:30 98.8 69 15 106/40 (62) 100 03/09/18 11:00 66 16 107/43 (64) 100 03/09/18 11:00 107/43 03/09/18 10:45 68 16 113/44 (67) 100 03/09/18 10:42 69 16 30 03/09/18 10:30 76 17 108/61 (77) 100 03/09/18 10:15 72 15 105/73 (84) 100 03/09/18 10:00 87/65 03/09/18 10:00 73 17 84/65 (71) 100 03/09/18 09:31 72 16 30 03/09/18 09:30 71 16 96/47 (63) 100 03/09/18 09:00 70 16 102/37 (58) 100 03/09/18 09:00 102/37 03/09/18 09:00 15.0 30 03/09/18 08:30 73 16 96/37 (56) 100 03/09/18 08:02 74 21 30 03/09/18 08:00 98.8 69 16 105/39 (61) 100 03/09/18 08:00 Mechanical Ventilator 03/09/18 08:00 77 03/09/18 08:00 105/39 03/09/18 07:30 71 17 100/36 (57) 100 03/09/18 07:00 73 16 96/35 (55) 100 03/09/18 07:00 96/35 03/09/18 06:30 71 16 102/34 (56) 100 03/09/18 06:00 111/37 03/09/18 06:00 72 16 111/37 (61) 100 03/09/18 05:45 74 16 113/70 (84) 100 03/09/18 05:30 71 16 118/39 (65) 100 03/09/18 05:21 69 16 30 03/09/18 05:15 69 16 102/77 (85) 100 03/09/18 05:00 71 17 109/85 (93) 100 03/09/18 05:00 109/85 03/09/18 04:45 72 20 114/38 (63) 100 03/09/18 04:30 73 16 114/41 (65) 100 03/09/18 04:00 98.4 70 16 115/36 (62) 100 03/09/18 04:00 115/36 03/09/18 04:00 15.0 30 03/09/18 04:00 70 03/09/18 04:00 Mechanical Ventilator 03/09/18 03:20 71 16 30 03/09/18 03:00 119/55 03/09/18 03:00 70 16 119/55 (76) 100 03/09/18 02:45 72 16 85/55 (65) 100 03/09/18 02:30 74 16 129/93 (105) 100 03/09/18 02:15 72 16 118/38 (64) 100 03/09/18 02:00 71 16 140/51 (80) 100 03/09/18 02:00 140/51 03/09/18 01:45 72 16 94/59 (71) 100 03/09/18 01:30 72 16 110/42 (64) 100 03/09/18 01:16 72 16 30 03/09/18 01:15 73 16 112/40 (64) 100 03/09/18 01:00 72 16 123/40 (67) 100 03/09/18 01:00 123/44 03/09/18 00:30 71 16 116/41 (66) 100 03/09/18 00:00 99.0 72 16 114/40 (64) 100 03/09/18 00:00 15.0 30 03/09/18 00:00 114/40 03/09/18 00:00 74 03/09/18 00:00 Mechanical Ventilator 03/08/18 23:30 73 16 124/41 (68) 100 03/08/18 23:00 111/38 03/08/18 23:00 73 16 111/38 (62) 100 03/08/18 22:57 71 16 30 03/08/18 22:30 73 16 101/46 (64) 100 Micro: Microbiology Date/Time Source Procedure Growth Status 03/08/18 10:11 Sputum Not Specified Gram Stain - Final Resulted 03/08/18 10:11 Sputum Not Specified Sputum Culture Pending Resulted 03/08/18 11:46 Urine,Clean Catch Urine Culture - Preliminary Staphylococcus Aureus Gram Negative Bacillus 1 Resulted 03/08/18 10:20 Rectal Mucosa Received Accucheck: 227 Critical Care - Subjective ROS Limited/Unobtainable: Yes FI02: 30 Vent Support Breath Rate: 16 Vent Support Mode: AC Vent Tidal Volume: 550 Sputum Amount: Scant PEEP: 5.0 PIP: 22 I&O: Intake and Output 03/08/18 03/09/18 19:00 07:00 Intake Total 2925 ml 992.5 ml Output Total 500 ml Balance 2925 ml 492.5 ml Intake Free Water 20 ml IV Total 2925 ml 972.5 ml Output Urine Total 490 ml Gastric Drainage Total 10 ml # Voids 1 # Bowel Movements 1 4 ET-Tube: 7.5 ET Position: 23 Brian Cardona MD Mar 09, 2018 22:23
[2018-03-09] MEDS ORDERED: Dyna-Hex 2% Top Sol 2oz TOPIC SCH (22:30)
[2018-03-10] VITALS (24 sets, daily range): BP systolic 90–140; BP diastolic 34–89
[2018-03-10] MEDS: Piperacillin/Tazobactam 3.375 GM in D5W 110 ML IVPB SCH (03:22)
[2018-03-10 06:12] LABS: HEMATOCRIT 22.1 % (37.0-47.0); HEMOGLOBIN 7.3 G/DL (12.0-16.0); MEAN CORPUSCULAR VOLUME 83 FL (80-99); PLATELET COUNT 137 K/UL (150-450); RED BLOOD COUNT 2.66 M/UL (4.20-5.40); RED CELL DISTRIBUTION WIDTH 13.7 % (11.6-14.8); WHITE BLOOD COUNT 11.3 K/UL (4.8-10.8)
[2018-03-10] MEDS: NovoLOG Insulin Flexpen SUBQ SCH ×4 (06:20→20:57)
[2018-03-10 06:31] LABS: ALANINE AMINOTRANSFERASE 55 U/L (12-78); ALBUMIN 1.6 G/DL (3.4-5.0); ALBUMIN/GLOBULIN RATIO 0.5 (1.0-2.7); ALKALINE PHOSPHATASE 98 U/L (46-116); ANION GAP 16 mmol/L (5-15); ASPARTATE AMINO TRANSFERASE 26 U/L (15-37); BILIRUBIN,TOTAL 0.2 MG/DL (0.2-1.0); BLOOD UREA NITROGEN 110 mg/dL (7-18); CALCIUM 7.2 MG/DL (8.5-10.1); CARBON DIOXIDE 15 MMOL/L (21-32); CHLORIDE 114 MMOL/L (98-107); CREATININE 4.1 MG/DL (0.55-1.30); SODIUM 145 MMOL/L (136-145)
[2018-03-10] MEDS: D5NS 1,000 ML IV SCH ×2 (07:17→15:11)
[2018-03-10] MEDS: Heparin 5000 units/ml inj SUBQ SCH ×2 (08:15→20:57)
[2018-03-10] MEDS: Pantoprazole Inj IVP SCH ×2 (08:16→20:55)
[2018-03-10] MEDS: Aspirin Baby 81mg NG SCH (08:16)
[2018-03-10] MEDS: levETIRAcetam 500mg/5ml Liquid GT SCH ×2 (08:16→20:55)
[2018-03-10] MEDS: Meropenem 500 MG in NS 55 ML IVPB SCH ×2 (10:05→21:46)
[2018-03-10] MEDS ORDERED: D5NS 1000ml IV ONE (10:19)
[2018-03-10] MEDS ORDERED: Vancomycin 1.5 GM/D5W 250ML IVPB ONE (11:00)
[2018-03-10] MEDS ORDERED: Potassium Phosphate 20 MM in NS 275 ML IV ONE (12:00)
--- NOTE | 2018-03-10 12:47 | Nephrology Progress Note ---
Assessment/Plan Problem List: (1) MARK (acute kidney injury) (2) CKD (chronic kidney disease) (3) Sepsis (4) Respiratory failure (5) Shock (6) Anemia Assessment acute on chronic renal failure: Oliguric ATN Hypotension? due to sepsis: Shock Acute respiratory failure PEG DM Shock liver Sever HypoAlbuminemia Plan 2D echo Ej Fx 55 % Albumin bolus pulm support urine studies avoid Nephrotoxics Monitor renal parameters Transfuse I unit PADMA: Cholelithiasis. 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, consistent with angiomyolipoma no [place] Subjective ROS Limited/Unobtainable: Yes Objective Objective Last 24 Hour Vital Signs Date Time Temp Pulse Resp B/P (MAP) Pulse Ox O2 Delivery O2 Flow Rate FiO2 03/10/18 10:40 69 17 30 03/10/18 10:00 74 19 108/70 (83) 100 03/10/18 09:00 75 17 122/38 (66) 100 03/10/18 08:47 74 16 30 03/10/18 08:00 72 03/10/18 08:00 98.6 70 16 90/76 (81) 100 03/10/18 08:00 Mechanical Ventilator 03/10/18 08:00 15.0 30 03/10/18 07:02 72 16 30 03/10/18 07:00 78 20 125/35 (65) 100 03/10/18 06:00 74 17 109/54 (72) 100 03/10/18 05:00 74 17 101/45 (63) 100 03/10/18 04:52 76 22 30 03/10/18 04:00 98.6 78 17 117/34 (61) 100 03/10/18 04:00 Mechanical Ventilator 03/10/18 04:00 80 03/10/18 04:00 15.0 30 03/10/18 03:00 74 17 117/48 (71) 100 03/10/18 02:51 79 17 30 03/10/18 02:00 74 17 117/48 (71) 100 03/10/18 01:00 74 16 108/51 (70) 100 03/10/18 00:40 74 16 30 03/10/18 00:00 82 03/10/18 00:00 98.0 74 16 112/39 (63) 100 03/10/18 00:00 Mechanical Ventilator 03/09/18 23:00 75 18 106/45 (65) 100 03/09/18 22:52 72 16 30 03/09/18 22:00 79 17 132/39 (70) 100 03/09/18 21:00 Mechanical Ventilator 03/09/18 21:00 107/65 03/09/18 21:00 82 19 107/68 (81) 100 03/09/18 20:58 84 19 30 03/09/18 20:00 Mechanical Ventilator 03/09/18 20:00 15.0 30 03/09/18 20:00 15.0 30 03/09/18 20:00 98.5 78 18 111/45 (67) 100 03/09/18 20:00 78 03/09/18 20:00 111/45 03/09/18 19:30 98.5 74 18 120/41 (67) 100 03/09/18 19:07 73 17 30 03/09/18 18:30 74 17 118/41 (66) 100 03/09/18 18:00 76 16 122/48 (72) 100 03/09/18 18:00 122/48 03/09/18 17:30 75 17 123/47 (72) 100 03/09/18 17:00 73 17 114/69 (84) 100 03/09/18 17:00 113/55 03/09/18 16:34 71 16 30 03/09/18 16:30 69 16 119/58 (78) 100 03/09/18 16:00 71 03/09/18 16:00 15.0 30 03/09/18 16:00 Mechanical Ventilator 03/09/18 16:00 116/69 03/09/18 16:00 99.6 69 16 121/44 (69) 100 03/09/18 15:30 68 16 114/41 (65) 100 03/09/18 15:00 113/55 03/09/18 15:00 71 23 113/55 (74) 100 03/09/18 14:57 78 19 30 03/09/18 14:30 73 17 112/56 (74) 100 03/09/18 14:00 101/81 03/09/18 14:00 72 17 101/81 (88) 100 03/09/18 13:30 67 16 125/43 (70) 100 03/09/18 13:00 73 16 122/45 (70) 100 03/09/18 13:00 122/45 03/09/18 12:53 102/54 03/09/18 12:45 75 20 30 Intake and Output 03/09/18 03/10/18 18:59 06:59 Intake Total 1400.5 ml 657.5 ml Output Total 240 ml 340 ml Balance 1160.5 ml 317.5 ml Intake Free Water 60 ml IV Total 1340.5 ml 657.5 ml Output Urine Total 240 ml 340 ml # Bowel Movements 1 9 Laboratory Tests 03/09/18 21:30: Stool Occult Blood [Pending] 03/10/18 05:41: White Blood Count 11.3H, Red Blood Count 2.66L, Hemoglobin 7.3L, Hematocrit 22.1L, Mean Corpuscular Volume 83, Mean Corpuscular Hemoglobin 27.3, Mean Corpuscular Hemoglobin Concent 32.8, Red Cell Distribution Width 13.7, Platelet Count 137L, Mean Platelet Volume 10.2H, Neutrophils (%) (Auto) , Lymphocytes (% ) (Auto) , Monocytes (%) (Auto) , Eosinophils (%) (Auto) , Basophils (%) (Auto) , Differential Total Cells Counted 100, Neutrophils % (Manual) 76H, Lymphocytes % (Manual) 13L, Monocytes % (Manual) 7, Eosinophils % (Manual) 0, Basophils % ( Manual) 0, Band Neutrophils 4, Platelet Estimate DecreasedL, Platelet Morphology Normal, Ovalocytes 1+, Acanthocytes Occasional, Sodium Level 145, Potassium Level 3.0L, Chloride Level 114H, Carbon Dioxide Level 15L, Anion Gap 16H, Blood Urea Nitrogen 110H, Creatinine 4.1H, Estimat Glomerular Filtration Rate , Glucose Level 182H, Calcium Level 7.2L, Phosphorus Level 2.0L, Magnesium Level 2.7H, Total Bilirubin 0.2, Aspartate Amino Transf (AST/SGOT) 26, Alanine Aminotransferase (ALT/SGPT) 55, Alkaline Phosphatase 98, Troponin I 0.267H, C- Reactive Protein, Quantitative 20.1H, Pro-B-Type Natriuretic Peptide 9850H, Total Protein 5.1L, Albumin 1.6L, Globulin 3.5, Albumin/Globulin Ratio 0.5L Height (Feet): 5 Height (Inches): 10.00 Weight (Pounds): 168 EENT: other - vented Cardiovascular: normal rate Respiratory/Chest: decreased breath sounds Abdomen: soft Phil Ortiz MD Mar 10, 2018 12:47
--- NOTE | 2018-03-10 14:16 | General Surgery Progress Note ---
General Surgery-Progress Note Subjective Symptoms: improved Additional Comments still in ICU with support. labs improving. Objective Last 24 Hour Vital Signs Date Time Temp Pulse Resp B/P (MAP) Pulse Ox O2 Delivery O2 Flow Rate FiO2 03/10/18 14:00 75 14 106/59 (75) 100 03/10/18 13:00 74 15 113/55 (74) 100 03/10/18 12:46 71 16 30 03/10/18 12:00 Mechanical Ventilator 03/10/18 12:00 98.2 73 16 111/70 (84) 100 03/10/18 12:00 15.0 30 03/10/18 12:00 75 03/10/18 11:00 71 17 105/58 (74) 100 03/10/18 10:40 69 17 30 03/10/18 10:00 74 19 108/70 (83) 100 03/10/18 09:00 75 17 122/38 (66) 100 03/10/18 08:47 74 16 30 03/10/18 08:00 72 03/10/18 08:00 98.6 70 16 90/76 (81) 100 03/10/18 08:00 Mechanical Ventilator 03/10/18 08:00 15.0 30 03/10/18 07:02 72 16 30 03/10/18 07:00 78 20 125/35 (65) 100 03/10/18 06:00 74 17 109/54 (72) 100 03/10/18 05:00 74 17 101/45 (63) 100 03/10/18 04:52 76 22 30 03/10/18 04:00 98.6 78 17 117/34 (61) 100 03/10/18 04:00 Mechanical Ventilator 03/10/18 04:00 80 03/10/18 04:00 15.0 30 03/10/18 03:00 74 17 117/48 (71) 100 03/10/18 02:51 79 17 30 03/10/18 02:00 74 17 117/48 (71) 100 03/10/18 01:00 74 16 108/51 (70) 100 03/10/18 00:40 74 16 30 03/10/18 00:00 82 03/10/18 00:00 98.0 74 16 112/39 (63) 100 03/10/18 00:00 Mechanical Ventilator 03/09/18 23:00 75 18 106/45 (65) 100 03/09/18 22:52 72 16 30 03/09/18 22:00 79 17 132/39 (70) 100 03/09/18 21:00 Mechanical Ventilator 03/09/18 21:00 107/65 03/09/18 21:00 82 19 107/68 (81) 100 03/09/18 20:58 84 19 30 03/09/18 20:00 Mechanical Ventilator 03/09/18 20:00 15.0 30 03/09/18 20:00 15.0 30 03/09/18 20:00 98.5 78 18 111/45 (67) 100 03/09/18 20:00 78 03/09/18 20:00 111/45 03/09/18 19:30 98.5 74 18 120/41 (67) 100 03/09/18 19:07 73 17 30 03/09/18 18:30 74 17 118/41 (66) 100 03/09/18 18:00 76 16 122/48 (72) 100 03/09/18 18:00 122/48 03/09/18 17:30 75 17 123/47 (72) 100 03/09/18 17:00 73 17 114/69 (84) 100 03/09/18 17:00 113/55 03/09/18 16:34 71 16 30 03/09/18 16:30 69 16 119/58 (78) 100 03/09/18 16:00 71 03/09/18 16:00 15.0 30 03/09/18 16:00 Mechanical Ventilator 03/09/18 16:00 116/69 03/09/18 16:00 99.6 69 16 121/44 (69) 100 03/09/18 15:30 68 16 114/41 (65) 100 03/09/18 15:00 113/55 03/09/18 15:00 71 23 113/55 (74) 100 03/09/18 14:57 78 19 30 03/09/18 14:30 73 17 112/56 (74) 100 I&O Intake and Output 03/09/18 03/10/18 18:59 06:59 Intake Total 1400.5 ml 657.5 ml Output Total 240 ml 340 ml Balance 1160.5 ml 317.5 ml Intake Free Water 60 ml IV Total 1340.5 ml 657.5 ml Output Urine Total 240 ml 340 ml # Bowel Movements 1 9 Dressing: saturated Wound: clean, other Drains: other Cardiovascular: RSR Respiratory: clear Abdomen: soft, present bowel sounds Extremities: other Laboratory Tests Test 03/09/18 21:30 03/10/18 05:41 Stool Occult Blood Pending White Blood Count 11.3 K/UL (4.8-10.8) H Red Blood Count 2.66 M/UL (4.20-5.40) L Hemoglobin 7.3 G/DL (12.0-16.0) L Hematocrit 22.1 % (37.0-47.0) L Mean Corpuscular Volume 83 FL (80-99) Mean Corpuscular Hemoglobin 27.3 PG (27.0-31.0) Mean Corpuscular Hemoglobin Concent 32.8 G/DL (32.0-36.0) Red Cell Distribution Width 13.7 % (11.6-14.8) Platelet Count 137 K/UL (150-450) L Mean Platelet Volume 10.2 FL (6.5-10.1) H Neutrophils (%) (Auto) % (45.0-75.0) Lymphocytes (%) (Auto) % (20.0-45.0) Monocytes (%) (Auto) % (1.0-10.0) Eosinophils (%) (Auto) % (0.0-3.0) Basophils (%) (Auto) % (0.0-2.0) Differential Total Cells Counted 100 Neutrophils % (Manual) 76 % (45-75) H Lymphocytes % (Manual) 13 % (20-45) L Monocytes % (Manual) 7 % (1-10) Eosinophils % (Manual) 0 % (0-3) Basophils % (Manual) 0 % (0-2) Band Neutrophils 4 % (0-8) Platelet Estimate Decreased L Platelet Morphology Normal Ovalocytes 1+ Acanthocytes Occasional Sodium Level 145 MMOL/L (136-145) Potassium Level 3.0 MMOL/L (3.5-5.1) L Chloride Level 114 MMOL/L (98-107) H Carbon Dioxide Level 15 MMOL/L (21-32) L Anion Gap 16 mmol/L (5-15) H Blood Urea Nitrogen 110 mg/dL (7-18) H Creatinine 4.1 MG/DL (0.55-1.30) H Estimat Glomerular Filtration Rate mL/min (>60) Glucose Level 182 MG/DL (74-106) H Calcium Level 7.2 MG/DL (8.5-10.1) L Phosphorus Level 2.0 MG/DL (2.5-4.9) L Magnesium Level 2.7 MG/DL (1.8-2.4) H Total Bilirubin 0.2 MG/DL (0.2-1.0) Aspartate Amino Transf (AST/SGOT) 26 U/L (15-37) Alanine Aminotransferase (ALT/SGPT) 55 U/L (12-78) Alkaline Phosphatase 98 U/L (46-116) Troponin I 0.267 ng/mL (0.000-0.056) C-Reactive Protein, Quantitative 20.1 mg/dL (0.00-0.90) H Pro-B-Type Natriuretic Peptide 9850 pg/mL (0-125) H Total Protein 5.1 G/DL (6.4-8.2) L Albumin 1.6 G/DL (3.4-5.0) L Globulin 3.5 g/dL Albumin/Globulin Ratio 0.5 (1.0-2.7) L Plan Problems: (1) Abnormal LFTs Assessment & Plan: likely shock liver from overt sepsis. labs improving abdominal ultrasound reviewed recovering / resolved (2) Decubitus ulcer of sacral region, unstageable Assessment & Plan: full thickness pressure injury (L)4cm x(W)3.4cm with approx 80% yellow slough ,otherwise pink ,(+) maceration.Hyperpigmentation periwound bordered by darker skin tone. DTPI noted to L heel oozing small amt serosanguineous exudate (L)6cm x (W)9cm.Wound bed fluctuant.DTPI noted to medial R heel (L)2cm x (W)2.5cm dry area noted along border but wound is fluctuant centrally. present upon admission. will be cared for during hospital stay will plan for debridement once stable Tx.Plan: Cleanse sacral wound with Saline.Apply Therahoney gel .Apply Cavilon to borders .Cover with Optifoam drsg Daily and prn. Apply Cavilon wipe to R and L heels. Cover with Biatain drsg.Change prn. Reposition at least every 2hours or as tolerated. Off-load heels with pillow. (3) Severe sepsis Jean Marie Park Mar 10, 2018 14:16
[2018-03-10] MEDS: Acetaminophen 650mg/20.3ml GT PRN (14:55)
[2018-03-10] MEDS ORDERED: Iron Sucrose 200 MG in NS 50 ML IV SCH (15:00)
--- NOTE | 2018-03-10 18:09 | Pulmonolgy Critical Care Note ---
Critical Care - Asmt/Plan Assessment/Plan: Critical Care - Asmt/Plan Problems: (1) [facility] resident (2) Anemia (3) PEG (percutaneous endoscopic gastrostomy) status (4) Seizure disorder (5) CKD (chronic kidney disease) (6) MARK (acute kidney injury) (7) Severe sepsis (8) UTI (urinary tract infection) (9) Respiratory failure (10) NSTEMI (non-ST elevated myocardial infarction) Assessment/Plan: ASSESSMENT: CXR: stable * SIRS/SEPSIS * Shock, likely septic * VDRF * MSOF * MARK on CKD * Abnormal LFT's * NSTEMI, likely demand ischemia * Mild PVC on CXR & elevated BNP but clinically appears dry * ? ADHF * Sz DO * NHR * Bedbound @ baseline * Anemia * S/P GT PLAN: * Admit to ICU * Continue ventilatory support, AC 14 VC 450 PEEP 5, FiO2 40 * Check ABG, adjust vent accordingly * PRN HHN's * Titrate NE to keep MAP > 60 * Monitor volumes, gentle IVF hydration * Monitor renal function, may need HD * Trend ECG/trop * TTE * Cardiology evaluation * Start Vancomycin & Zosyn, F/U Cx's * F/U CX's * Check cortisol, TSH * NPO, hold TF's * Reconcile home meds * Continue AED's * DVT Px: Hep SQ * FC CCT 100 Critical Care - Objective Last 24 Hour Vital Signs Date Time Temp Pulse Resp B/P (MAP) Pulse Ox O2 Delivery O2 Flow Rate FiO2 03/08/18 13:40 104/58 03/08/18 13:40 98.3 101 18 104/58 100 Mechanical Ventilator 15.0 40 03/08/18 13:35 84/47 03/08/18 13:30 98.3 101 18 85/48 100 Mechanical Ventilator 15.0 40 03/08/18 13:30 85/48 03/08/18 13:25 75/41 03/08/18 13:12 107 17 40 03/08/18 13:00 98.0 96 16 86/42 100 Mechanical Ventilator 15.0 45 03/08/18 12:30 98.0 101 16 92/34 100 Mechanical Ventilator 15.0 45 03/08/18 11:57 98.0 101 16 86/42 100 Mechanical Ventilator 15.0 45 03/08/18 11:53 106 16 45 03/08/18 10:54 98 16 93/35 100 Mechanical Ventilator 15.0 50 03/08/18 10:24 121 16 Mechanical Ventilator 50 03/08/18 10:18 111 16 50 03/08/18 10:05 15.0 50 03/08/18 10:00 111 16 Mechanical Ventilator 15.0 50 03/08/18 10:00 111 16 66/32 100 Mechanical Ventilator 15.0 50 03/08/18 09:50 104 22 105/50 100 Non-Rebreather 15.0 Status: other - Intubated, sedated Condition: critical HEENT: atraumatic, normocephalic, other - ETT Lungs: rales - @ bases, o/w CTA Heart: HR/BP unstable Abdomen: soft, non-tender, active bowel sounds, feeding tube Extremities: no C/C/E Micro: Microbiology Date/Time Source Procedure Growth Status 03/08/18 10:20 Rectal Mucosa Received Blood Sugars: BS controlled Critical Care - Subjective ROS Limited/Unobtainable: Yes ICU Day: 1 Intubation Day: 1 Interval Events: 82 F NHR h/o Sz DO, bedbound @ baseline, GT, CKD BIB EMS with AMS Upon arrival to ED BP was borderline and marked respiratory distress, intubated by ERMD W/U thus far suggestive of UROSEPSIS with MSOF ---> MARK on CKD, abnl LFT's and NSTEMI D/W grand-daughter @ bedside, family wants all aggressive measures Condition: critical IV Access: central - R fem CVC EKG Rhythm: Sinus Rhythm FI02: 40 Vent Support Breath Rate: 16 Vent Support Mode: AC Vent Tidal Volume: 550 Sputum Amount: Scant PEEP: 0.0 PIP: 28 Subjective: KARRIE CXR: Mild PVC ET Position: 23 Labs: Laboratory Tests Test 03/08/18 10:00 03/08/18 11:04 03/08/18 11:46 White Blood Count 14.4 K/UL (4.8-10.8) H Red Blood Count 3.39 M/UL (4.20-5.40) L Hemoglobin 9.1 G/DL (12.0-16.0) L Hematocrit 28.5 % (37.0-47.0) L Mean Corpuscular Volume 84 FL (80-99) Mean Corpuscular Hemoglobin 26.9 PG (27.0-31.0) L Mean Corpuscular Hemoglobin Concent 32.0 G/DL (32.0-36.0) Red Cell Distribution Width 13.7 % (11.6-14.8) Platelet Count 169 K/UL (150-450) Mean Platelet Volume 10.3 FL (6.5-10.1) H Neutrophils (%) (Auto) 80.0 % (45.0-75.0) H Lymphocytes (%) (Auto) 9.1 % (20.0-45.0) L Monocytes (%) (Auto) 10.1 % (1.0-10.0) H Eosinophils (%) (Auto) 0.0 % (0.0-3.0) Basophils (%) (Auto) 0.8 % (0.0-2.0) Prothrombin Time 12.0 SEC (9.30-11.50) H Prothromb Time International Ratio 1.1 (0.9-1.1) Activated Partial Thromboplast Time 48 SEC (23-33) H Sodium Level 141 MMOL/L (136-145) Potassium Level 3.5 MMOL/L (3.5-5.1) Chloride Level 109 MMOL/L (98-107) H Carbon Dioxide Level 17 MMOL/L (21-32) L Anion Gap 15 mmol/L (5-15) Blood Urea Nitrogen 126 mg/dL (7-18) H Creatinine 4.3 MG/DL (0.55-1.30) H Estimat Glomerular Filtration Rate mL/min (>60) Glucose Level 296 MG/DL (74-106) H Lactic Acid Level 1.80 mmol/L (0.4-2.0) Calcium Level 8.4 MG/DL (8.5-10.1) L Total Bilirubin 0.2 MG/DL (0.2-1.0) Aspartate Amino Transf (AST/SGOT) 66 U/L (15-37) H Alanine Aminotransferase (ALT/SGPT) 125 U/L (12-78) H Alkaline Phosphatase 159 U/L (46-116) H Total Creatine Kinase 253 U/L (26-308) Troponin I 0.271 ng/mL (0.000-0.056) Pro-B-Type Natriuretic Peptide 12455 pg/mL (0-125) H Total Protein 5.9 G/DL (6.4-8.2) L Albumin 1.6 G/DL (3.4-5.0) L Globulin 4.3 g/dL Albumin/Globulin Ratio 0.4 (1.0-2.7) L Lipase 122 U/L (73-393) Arterial Blood pH 7.441 (7.350-7.450) Arterial Blood Partial Pressure CO2 17.6 mmHg (35.0-45.0) *L Arterial Blood Partial Pressure O2 188.8 mmHg (75.0-100.0) H Arterial Blood HCO3 11.7 mmol/L (22.0-26.0) *L Arterial Blood Oxygen Saturation 99.0 % (95-100) Arterial Blood Base Excess -11.0 (-2-2) *L Michael Test Positive Urine Color Brown Urine Appearance Very cloudy Urine pH 5 (4.5-8.0) Urine Specific [place] 1.020 (1.005-1.035) Urine Protein 3+ (NEGATIVE) H Urine Glucose (UA) Negative (NEGATIVE) Urine Ketones Negative (NEGATIVE) Urine Blood 5+ (NEGATIVE) H Urine Nitrite Negative (NEGATIVE) Urine Bilirubin Negative (NEGATIVE) Urine Urobilinogen Normal MG/DL (0.0-1.0) Urine Leukocyte Esterase 3+ (NEGATIVE) H Urine RBC 40-60 /HPF (0 - 2) H Urine WBC Tntc /HPF (0 - 2) H Urine Squamous Epithelial Cells Occasional /LPF Urine Transitional Epithelial Cells /LPF (NONE) Urine Bacteria Many /HPF (NONE) H Critical Care - Objective Last 24 Hour Vital Signs Date Time Temp Pulse Resp B/P (MAP) Pulse Ox O2 Delivery O2 Flow Rate FiO2 03/10/18 18:00 68 16 128/72 (90) 100 03/10/18 17:00 74 16 130/67 (88) 100 03/10/18 16:52 71 16 30 03/10/18 16:00 69 03/10/18 16:00 Mechanical Ventilator 03/10/18 16:00 15.0 30 03/10/18 16:00 99.1 83 17 119/54 (75) 100 03/10/18 15:25 99.1 03/10/18 15:00 82 20 114/89 (97) 100 03/10/18 14:39 80 24 30 03/10/18 14:00 75 14 106/59 (75) 100 03/10/18 13:00 74 15 113/55 (74) 100 03/10/18 12:46 71 16 30 03/10/18 12:00 Mechanical Ventilator 03/10/18 12:00 98.2 73 16 111/70 (84) 100 03/10/18 12:00 15.0 30 03/10/18 12:00 75 03/10/18 11:00 71 17 105/58 (74) 100 03/10/18 10:40 69 17 30 03/10/18 10:00 74 19 108/70 (83) 100 03/10/18 09:00 75 17 122/38 (66) 100 03/10/18 08:47 74 16 30 03/10/18 08:00 72 03/10/18 08:00 98.6 70 16 90/76 (81) 100 03/10/18 08:00 Mechanical Ventilator 03/10/18 08:00 15.0 30 03/10/18 07:02 72 16 30 03/10/18 07:00 78 20 125/35 (65) 100 03/10/18 06:00 74 17 109/54 (72) 100 03/10/18 05:00 74 17 101/45 (63) 100 03/10/18 04:52 76 22 30 03/10/18 04:00 98.6 78 17 117/34 (61) 100 03/10/18 04:00 Mechanical Ventilator 03/10/18 04:00 80 03/10/18 04:00 15.0 30 03/10/18 03:00 74 17 117/48 (71) 100 03/10/18 02:51 79 17 30 03/10/18 02:00 74 17 117/48 (71) 100 03/10/18 01:00 74 16 108/51 (70) 100 03/10/18 00:40 74 16 30 03/10/18 00:00 82 03/10/18 00:00 98.0 74 16 112/39 (63) 100 03/10/18 00:00 Mechanical Ventilator 03/09/18 23:00 75 18 106/45 (65) 100 03/09/18 22:52 72 16 30 03/09/18 22:00 79 17 132/39 (70) 100 03/09/18 21:00 Mechanical Ventilator 03/09/18 21:00 107/65 03/09/18 21:00 82 19 107/68 (81) 100 03/09/18 20:58 84 19 30 03/09/18 20:00 Mechanical Ventilator 03/09/18 20:00 15.0 30 03/09/18 20:00 15.0 30 03/09/18 20:00 98.5 78 18 111/45 (67) 100 03/09/18 20:00 78 03/09/18 20:00 111/45 03/09/18 19:30 98.5 74 18 120/41 (67) 100 03/09/18 19:07 73 17 30 03/09/18 18:30 74 17 118/41 (66) 100 Micro: Microbiology Date/Time Source Procedure Growth Status 03/08/18 10:10 Blood Blood Culture - Preliminary NO GROWTH AFTER 48 HOURS Resulted 03/08/18 10:00 Blood Blood Culture - Preliminary NO GROWTH AFTER 48 HOURS Resulted 03/08/18 10:20 Nasal Nares MRSA Culture - Final NO METHICILLIN RESISTANT STAPH AUREUS... Complete 03/08/18 10:11 Sputum Not Specified Gram Stain - Final Complete 03/08/18 10:11 Sputum Not Specified Sputum Culture - Final NORMAL UPPER RESPIRATORY JENNIFER AT 48 ... Complete 03/08/18 11:46 Urine,Clean Catch Urine Culture - Preliminary Staphylococcus Aureus - Mrsa Citrobacter Freundii Resulted 03/08/18 10:20 Rectum VRE Culture - Final NO VANCOMYCIN RESISTANT ENTEROCOCCUS ... Complete 03/08/18 10:20 Rectal Mucosa - Final NO CARBAPENEM-RESISTANT ENTEROBACTERI... Complete Accucheck: 215 Critical Care - Subjective ROS Limited/Unobtainable: Yes FI02: 30 Vent Support Breath Rate: 16 Vent Support Mode: AC Vent Tidal Volume: 550 Sputum Amount: Scant PEEP: 5.0 PIP: 31 I&O: Intake and Output 03/09/18 03/10/18 19:00 07:00 Intake Total 1338.0 ml 607.5 ml Output Total 230 ml 400 ml Balance 1108.0 ml 207.5 ml Intake Free Water 60 ml IV Total 1278.0 ml 607.5 ml Output Urine Total 230 ml 370 ml Gastric Drainage Total 30 ml # Bowel Movements 1 9 ET-Tube: 7.5 ET Position: 23 Brian Cardona MD Mar 10, 2018 18:09
--- NOTE | 2018-03-10 18:37 | General Progress Note ---
Assessment/Plan Status: not improved, unchanged Assessment/Plan # Anemia of chronic disease -- baseline appears to be 11-12 reviewed labs from 2012 --> at this time decreased, anemia panel has been decreased --> transfuse as needed, hgb goal >7 --> no evidence of hemolysis noted --> Blood tx: 03/10, # Leukocytosis likely related to septic shock --> on abx and ivf --> appreciate ID recs and workup # Abnormal LFTs --> likely shock liver from overt sepsis. --> trend labs # Decubitus ulcer of sacral region, unstageable, 5cm x 4cm unstagable sacral decubitus ulcer, no drainage, mild periedge edema/erythema, soft, no odor present upon admission. will be cared for during hospital sta # Severe sepsis --> on abx as per ID # Respiratory failure intubated --> as per pulm Greatly appreciate consultation! Subjective Date patient seen: Mar 10, 2018 ROS Limited/Unobtainable: Yes Hematologic/Lymphatic: Reports: anemia Allergies: Coded Allergies: PENICILLINS (Unverified Allergy, Mild, 12/04/12) Subjective Hgb at 7.3, blood tx ordered. Objective Last 24 Hour Vital Signs Date Time Temp Pulse Resp B/P (MAP) Pulse Ox O2 Delivery O2 Flow Rate FiO2 03/10/18 18:00 68 16 128/72 (90) 100 03/10/18 17:00 74 16 130/67 (88) 100 03/10/18 16:52 71 16 30 03/10/18 16:00 69 03/10/18 16:00 Mechanical Ventilator 03/10/18 16:00 15.0 30 03/10/18 16:00 99.1 83 17 119/54 (75) 100 03/10/18 15:25 99.1 03/10/18 15:00 82 20 114/89 (97) 100 03/10/18 14:39 80 24 30 03/10/18 14:00 75 14 106/59 (75) 100 03/10/18 13:00 74 15 113/55 (74) 100 03/10/18 12:46 71 16 30 03/10/18 12:00 Mechanical Ventilator 03/10/18 12:00 98.2 73 16 111/70 (84) 100 03/10/18 12:00 15.0 30 03/10/18 12:00 75 03/10/18 11:00 71 17 105/58 (74) 100 03/10/18 10:40 69 17 30 03/10/18 10:00 74 19 108/70 (83) 100 03/10/18 09:00 75 17 122/38 (66) 100 03/10/18 08:47 74 16 30 03/10/18 08:00 72 03/10/18 08:00 98.6 70 16 90/76 (81) 100 03/10/18 08:00 Mechanical Ventilator 03/10/18 08:00 15.0 30 03/10/18 07:02 72 16 30 03/10/18 07:00 78 20 125/35 (65) 100 03/10/18 06:00 74 17 109/54 (72) 100 03/10/18 05:00 74 17 101/45 (63) 100 03/10/18 04:52 76 22 30 03/10/18 04:00 98.6 78 17 117/34 (61) 100 03/10/18 04:00 Mechanical Ventilator 03/10/18 04:00 80 03/10/18 04:00 15.0 30 03/10/18 03:00 74 17 117/48 (71) 100 03/10/18 02:51 79 17 30 03/10/18 02:00 74 17 117/48 (71) 100 03/10/18 01:00 74 16 108/51 (70) 100 03/10/18 00:40 74 16 30 03/10/18 00:00 82 03/10/18 00:00 98.0 74 16 112/39 (63) 100 03/10/18 00:00 Mechanical Ventilator 03/09/18 23:00 75 18 106/45 (65) 100 03/09/18 22:52 72 16 30 03/09/18 22:00 79 17 132/39 (70) 100 03/09/18 21:00 Mechanical Ventilator 03/09/18 21:00 107/65 03/09/18 21:00 82 19 107/68 (81) 100 03/09/18 20:58 84 19 30 03/09/18 20:00 Mechanical Ventilator 03/09/18 20:00 15.0 30 03/09/18 20:00 15.0 30 03/09/18 20:00 98.5 78 18 111/45 (67) 100 03/09/18 20:00 78 03/09/18 20:00 111/45 03/09/18 19:30 98.5 74 18 120/41 (67) 100 03/09/18 19:07 73 17 30 Intake and Output 03/09/18 03/10/18 19:00 07:00 Intake Total 1338.0 ml 607.5 ml Output Total 230 ml 400 ml Balance 1108.0 ml 207.5 ml Intake Free Water 60 ml IV Total 1278.0 ml 607.5 ml Output Urine Total 230 ml 370 ml Gastric Drainage Total 30 ml # Bowel Movements 1 9 Laboratory Tests 03/09/18 21:30: Stool Occult Blood [Pending] 03/10/18 05:41: White Blood Count 11.3H, Red Blood Count 2.66L, Hemoglobin 7.3L, Hematocrit 22.1L, Mean Corpuscular Volume 83, Mean Corpuscular Hemoglobin 27.3, Mean Corpuscular Hemoglobin Concent 32.8, Red Cell Distribution Width 13.7, Platelet Count 137L, Mean Platelet Volume 10.2H, Neutrophils (%) (Auto) , Lymphocytes (% ) (Auto) , Monocytes (%) (Auto) , Eosinophils (%) (Auto) , Basophils (%) (Auto) , Differential Total Cells Counted 100, Neutrophils % (Manual) 76H, Lymphocytes % (Manual) 13L, Monocytes % (Manual) 7, Eosinophils % (Manual) 0, Basophils % ( Manual) 0, Band Neutrophils 4, Platelet Estimate DecreasedL, Platelet Morphology Normal, Ovalocytes 1+, Acanthocytes Occasional, Sodium Level 145, Potassium Level 3.0L, Chloride Level 114H, Carbon Dioxide Level 15L, Anion Gap 16H, Blood Urea Nitrogen 110H, Creatinine 4.1H, Estimat Glomerular Filtration Rate , Glucose Level 182H, Calcium Level 7.2L, Phosphorus Level 2.0L, Magnesium Level 2.7H, Total Bilirubin 0.2, Aspartate Amino Transf (AST/SGOT) 26, Alanine Aminotransferase (ALT/SGPT) 55, Alkaline Phosphatase 98, Troponin I 0.267H, C- Reactive Protein, Quantitative 20.1H, Pro-B-Type Natriuretic Peptide 9850H, Total Protein 5.1L, Albumin 1.6L, Globulin 3.5, Albumin/Globulin Ratio 0.5L Height (Feet): 5 Height (Inches): 10.00 Weight (Pounds): 168 General Appearance: no apparent distress EENT: PERRL/EOMI Neck: normal alignment Cardiovascular: normal peripheral pulses Respiratory/Chest: no respiratory distress Abdomen: normal bowel sounds Aleksandr Kern MD Mar 10, 2018 18:37
[2018-03-10] MEDS: Dyna-Hex 2% Top Sol 2oz TOPIC SCH (20:03)
--- NOTE | 2018-03-10 21:21 | General Progress Note ---
Assessment/Plan Problem List: (1) CKD (chronic kidney disease) ICD Codes: N18.9 - Chronic kidney disease, unspecified SNOMED: 666812853 (2) MARK (acute kidney injury) ICD Codes: N17.9 - Acute kidney failure, unspecified SNOMED: 76781660 (3) Sepsis ICD Codes: A41.9 - Sepsis, unspecified organism SNOMED: 87698962 (4) Abnormal LFTs ICD Codes: R94.5 - Abnormal results of liver function studies SNOMED: 929758748 (5) Decubitus ulcer of sacral region, unstageable ICD Codes: L89.150 - Pressure ulcer of sacral region, unstageable SNOMED: 979847097, 542251486 (6) Hyperglycemia ICD Codes: R73.9 - Hyperglycemia, unspecified; N18.9 - Chronic kidney disease, unspecified SNOMED: 02127837 (7) Metabolic acidosis ICD Codes: E87.2 - Acidosis; N18.9 - Chronic kidney disease, unspecified SNOMED: 71841448 (8) Renal failure (ARF), acute on chronic ICD Codes: N17.9 - Acute kidney failure, unspecified; N18.9 - Chronic kidney disease, unspecified SNOMED: 962301455 Qualifiers: Qualified Codes: N17.9 - Acute kidney failure, unspecified; N18.4 - Chronic kidney disease, stage 4 (severe) (9) Anemia ICD Codes: D64.9 - Anemia, unspecified SNOMED: 671514660 Qualifiers: Qualified Codes: D64.9 - Anemia, unspecified (10) Respiratory failure ICD Codes: J96.90 - Respiratory failure, unspecified, unspecified whether with hypoxia or hypercapnia SNOMED: 886738258 Qualifiers: Qualified Codes: J96.00 - Acute respiratory failure, unspecified whether with hypoxia or hypercapnia (11) UTI (urinary tract infection) ICD Codes: N39.0 - Urinary tract infection, site not specified SNOMED: 26720006 Qualifiers: Qualified Codes: T83.511A - Infection and inflammatory reaction due to indwelling urethral catheter, initial encounter; N39.0 - Urinary tract infection , site not specified (12) NSTEMI (non-ST elevated myocardial infarction) ICD Codes: I21.4 - Non-ST elevation (NSTEMI) myocardial infarction SNOMED: 205728072 (13) Severe sepsis ICD Codes: A41.9 - Sepsis, unspecified organism; R65.20 - Severe sepsis without septic shock SNOMED: 06710270 (14) Encephalopathy due to metabolic factor or toxin SNOMED: 098661327 Status: progressing Assessment/Plan respirator failure intubated sepsis pna azotemia dm elev sugar poor prognosis lyte abnormality na improving abx per id afebrile no change Subjective ROS Limited/Unobtainable: Yes Allergies: Coded Allergies: PENICILLINS (Unverified Allergy, Mild, 12/04/12) Objective Last 24 Hour Vital Signs Date Time Temp Pulse Resp B/P (MAP) Pulse Ox O2 Delivery O2 Flow Rate FiO2 03/10/18 21:16 66 16 30 03/10/18 20:00 98.0 72 16 140/67 (91) 100 03/10/18 19:00 67 16 124/49 (74) 100 03/10/18 18:42 73 16 30 03/10/18 18:00 68 16 128/72 (90) 100 03/10/18 17:00 74 16 130/67 (88) 100 03/10/18 16:52 71 16 30 03/10/18 16:00 69 03/10/18 16:00 Mechanical Ventilator 03/10/18 16:00 15.0 30 03/10/18 16:00 99.1 83 17 119/54 (75) 100 03/10/18 15:25 99.1 03/10/18 15:00 82 20 114/89 (97) 100 03/10/18 14:39 80 24 30 03/10/18 14:00 75 14 106/59 (75) 100 03/10/18 13:00 74 15 113/55 (74) 100 03/10/18 12:46 71 16 30 03/10/18 12:00 Mechanical Ventilator 03/10/18 12:00 98.2 73 16 111/70 (84) 100 03/10/18 12:00 15.0 30 03/10/18 12:00 75 03/10/18 11:00 71 17 105/58 (74) 100 03/10/18 10:40 69 17 30 03/10/18 10:00 74 19 108/70 (83) 100 03/10/18 09:00 75 17 122/38 (66) 100 03/10/18 08:47 74 16 30 03/10/18 08:00 72 03/10/18 08:00 98.6 70 16 90/76 (81) 100 03/10/18 08:00 Mechanical Ventilator 03/10/18 08:00 15.0 30 03/10/18 07:02 72 16 30 03/10/18 07:00 78 20 125/35 (65) 100 03/10/18 06:00 74 17 109/54 (72) 100 03/10/18 05:00 74 17 101/45 (63) 100 03/10/18 04:52 76 22 30 03/10/18 04:00 98.6 78 17 117/34 (61) 100 03/10/18 04:00 Mechanical Ventilator 03/10/18 04:00 80 03/10/18 04:00 15.0 30 03/10/18 03:00 74 17 117/48 (71) 100 03/10/18 02:51 79 17 30 03/10/18 02:00 74 17 117/48 (71) 100 03/10/18 01:00 74 16 108/51 (70) 100 03/10/18 00:40 74 16 30 03/10/18 00:00 82 03/10/18 00:00 98.0 74 16 112/39 (63) 100 03/10/18 00:00 Mechanical Ventilator 03/09/18 23:00 75 18 106/45 (65) 100 03/09/18 22:52 72 16 30 03/09/18 22:00 79 17 132/39 (70) 100 Intake and Output 03/09/18 03/10/18 19:00 07:00 Intake Total 1338.0 ml 607.5 ml Output Total 230 ml 400 ml Balance 1108.0 ml 207.5 ml Intake Free Water 60 ml IV Total 1278.0 ml 607.5 ml Output Urine Total 230 ml 370 ml Gastric Drainage Total 30 ml # Bowel Movements 1 9 Laboratory Tests 03/09/18 21:30: Stool Occult Blood [Pending] 03/10/18 05:41: White Blood Count 11.3H, Red Blood Count 2.66L, Hemoglobin 7.3L, Hematocrit 22.1L, Mean Corpuscular Volume 83, Mean Corpuscular Hemoglobin 27.3, Mean Corpuscular Hemoglobin Concent 32.8, Red Cell Distribution Width 13.7, Platelet Count 137L, Mean Platelet Volume 10.2H, Neutrophils (%) (Auto) , Lymphocytes (% ) (Auto) , Monocytes (%) (Auto) , Eosinophils (%) (Auto) , Basophils (%) (Auto) , Differential Total Cells Counted 100, Neutrophils % (Manual) 76H, Lymphocytes % (Manual) 13L, Monocytes % (Manual) 7, Eosinophils % (Manual) 0, Basophils % ( Manual) 0, Band Neutrophils 4, Platelet Estimate DecreasedL, Platelet Morphology Normal, Ovalocytes 1+, Acanthocytes Occasional, Sodium Level 145, Potassium Level 3.0L, Chloride Level 114H, Carbon Dioxide Level 15L, Anion Gap 16H, Blood Urea Nitrogen 110H, Creatinine 4.1H, Estimat Glomerular Filtration Rate , Glucose Level 182H, Calcium Level 7.2L, Phosphorus Level 2.0L, Magnesium Level 2.7H, Total Bilirubin 0.2, Aspartate Amino Transf (AST/SGOT) 26, Alanine Aminotransferase (ALT/SGPT) 55, Alkaline Phosphatase 98, Troponin I 0.267H, C- Reactive Protein, Quantitative 20.1H, Pro-B-Type Natriuretic Peptide 9850H, Total Protein 5.1L, Albumin 1.6L, Globulin 3.5, Albumin/Globulin Ratio 0.5L Height (Feet): 5 Height (Inches): 10.00 Weight (Pounds): 168 Neck: supple Cardiovascular: normal rate Respiratory/Chest: lungs clear Abdomen: soft Krzysztof Schneider MD Mar 10, 2018 21:21
--- NOTE | 2018-03-10 23:38 | General Progress Note ---
Assessment/Plan Problem List: (1) Seizure disorder ICD Codes: G40.909 - Epilepsy, unspecified, not intractable, without status epilepticus SNOMED: 437091169 (2) Encephalopathy due to metabolic factor or toxin SNOMED: 943575778 Assessment/Plan (1) Seizure disorder ICD Codes: G40.909 - Epilepsy, unspecified, not intractable, without status epilepticus SNOMED: 954940918 (2) Encephalopathy due to metabolic factor or toxin SNOMED: 954199577 Status: unchanged Assessment/Plan seroquel prn Subjective Neurologic/Psychiatric: Reports: anxiety, depressed, emotional problems Allergies: Coded Allergies: PENICILLINS (Unverified Allergy, Mild, 12/04/12) Objective Last 24 Hour Vital Signs Date Time Temp Pulse Resp B/P (MAP) Pulse Ox O2 Delivery O2 Flow Rate FiO2 03/10/18 23:15 68 16 30 03/10/18 22:00 67 16 121/59 (79) 100 03/10/18 21:16 66 16 30 03/10/18 21:00 65 16 132/42 (72) 100 03/10/18 20:34 132/42 03/10/18 20:00 Mechanical Ventilator 03/10/18 20:00 98.0 72 16 140/67 (91) 100 03/10/18 20:00 15.0 30 03/10/18 19:10 68 03/10/18 19:00 67 16 124/49 (74) 100 03/10/18 18:42 73 16 30 03/10/18 18:00 68 16 128/72 (90) 100 03/10/18 17:00 74 16 130/67 (88) 100 03/10/18 16:52 71 16 30 03/10/18 16:00 69 03/10/18 16:00 Mechanical Ventilator 03/10/18 16:00 15.0 30 03/10/18 16:00 99.1 83 17 119/54 (75) 100 03/10/18 15:25 99.1 03/10/18 15:00 82 20 114/89 (97) 100 03/10/18 14:39 80 24 30 03/10/18 14:00 75 14 106/59 (75) 100 03/10/18 13:00 74 15 113/55 (74) 100 10/27/18 12:46 71 16 30 03/10/18 12:00 Mechanical Ventilator 03/10/18 12:00 98.2 73 16 111/70 (84) 100 03/10/18 12:00 15.0 30 03/10/18 12:00 75 03/10/18 11:00 71 17 105/58 (74) 100 03/10/18 10:40 69 17 30 03/10/18 10:00 74 19 108/70 (83) 100 03/10/18 09:00 75 17 122/38 (66) 100 03/10/18 08:47 74 16 30 03/10/18 08:00 72 03/10/18 08:00 98.6 70 16 90/76 (81) 100 03/10/18 08:00 Mechanical Ventilator 03/10/18 08:00 15.0 30 03/10/18 07:02 72 16 30 03/10/18 07:00 78 20 125/35 (65) 100 03/10/18 06:00 74 17 109/54 (72) 100 03/10/18 05:00 74 17 101/45 (63) 100 03/10/18 04:52 76 22 30 03/10/18 04:00 98.6 78 17 117/34 (61) 100 03/10/18 04:00 Mechanical Ventilator 03/10/18 04:00 80 03/10/18 04:00 15.0 30 03/10/18 03:00 74 17 117/48 (71) 100 03/10/18 02:51 79 17 30 03/10/18 02:00 74 17 117/48 (71) 100 03/10/18 01:00 74 16 108/51 (70) 100 03/10/18 00:40 74 16 30 03/10/18 00:00 82 03/10/18 00:00 98.0 74 16 112/39 (63) 100 03/10/18 00:00 Mechanical Ventilator Intake and Output 03/09/18 03/10/18 19:00 07:00 Intake Total 1338.0 ml 607.5 ml Output Total 230 ml 400 ml Balance 1108.0 ml 207.5 ml Intake Free Water 60 ml IV Total 1278.0 ml 607.5 ml Output Urine Total 230 ml 370 ml Gastric Drainage Total 30 ml # Bowel Movements 1 9 Laboratory Tests 03/10/18 05:41: White Blood Count 11.3H, Red Blood Count 2.66L, Hemoglobin 7.3L, Hematocrit 22.1L, Mean Corpuscular Volume 83, Mean Corpuscular Hemoglobin 27.3, Mean Corpuscular Hemoglobin Concent 32.8, Red Cell Distribution Width 13.7, Platelet Count 137L, Mean Platelet Volume 10.2H, Neutrophils (%) (Auto) , Lymphocytes (% ) (Auto) , Monocytes (%) (Auto) , Eosinophils (%) (Auto) , Basophils (%) (Auto) , Differential Total Cells Counted 100, Neutrophils % (Manual) 76H, Lymphocytes % (Manual) 13L, Monocytes % (Manual) 7, Eosinophils % (Manual) 0, Basophils % ( Manual) 0, Band Neutrophils 4, Platelet Estimate DecreasedL, Platelet Morphology Normal, Ovalocytes 1+, Acanthocytes Occasional, Sodium Level 145, Potassium Level 3.0L, Chloride Level 114H, Carbon Dioxide Level 15L, Anion Gap 16H, Blood Urea Nitrogen 110H, Creatinine 4.1H, Estimat Glomerular Filtration Rate , Glucose Level 182H, Calcium Level 7.2L, Phosphorus Level 2.0L, Magnesium Level 2.7H, Total Bilirubin 0.2, Aspartate Amino Transf (AST/SGOT) 26, Alanine Aminotransferase (ALT/SGPT) 55, Alkaline Phosphatase 98, Troponin I 0.267H, C- Reactive Protein, Quantitative 20.1H, Pro-B-Type Natriuretic Peptide 9850H, Total Protein 5.1L, Albumin 1.6L, Globulin 3.5, Albumin/Globulin Ratio 0.5L Height (Feet): 5 Height (Inches): 10.00 Weight (Pounds): 168 General Appearance: no apparent distress, confused, agitated China Kidd MD Mar 10, 2018 23:38
[2018-03-11] VITALS (24 sets, daily range): BP systolic 113–153; BP diastolic 39–85
[2018-03-11] MEDS: D5NS 1,000 ML IV SCH (05:08)
[2018-03-11 05:11] LABS: BASOPHILS % (AUTO) 0.4 % (0.0-2.0); EOSINOPHILS % (AUTO) 1.9 % (0.0-3.0); HEMATOCRIT 25.1 % (37.0-47.0); HEMOGLOBIN 8.2 G/DL (12.0-16.0); LYMPHOCYTES % (AUTO) 9.5 % (20.0-45.0); MEAN CORPUSCULAR VOLUME 84 FL (80-99); MONOCYTES % (AUTO) 9.2 % (1.0-10.0); NEUTROPHILS % (AUTO) 79.1 % (45.0-75.0); PLATELET COUNT 129 K/UL (150-450); RED CELL DISTRIBUTION WIDTH 13.5 % (11.6-14.8); WHITE BLOOD COUNT 14.5 K/UL (4.8-10.8)
[2018-03-11 05:48] LABS: PHOSPHORUS 3.7 MG/DL (2.5-4.9)
[2018-03-11] MEDS: NovoLOG Insulin Flexpen SUBQ SCH ×4 (06:06→21:21)
[2018-03-11 06:27] LABS: ALANINE AMINOTRANSFERASE 39 U/L (12-78); ALBUMIN 1.8 G/DL (3.4-5.0); ALBUMIN/GLOBULIN RATIO 0.5 (1.0-2.7); ALKALINE PHOSPHATASE 95 U/L (46-116); ANION GAP 16 mmol/L (5-15); ASPARTATE AMINO TRANSFERASE 18 U/L (15-37); BILIRUBIN,TOTAL 0.4 MG/DL (0.2-1.0); BLOOD UREA NITROGEN 103 mg/dL (7-18); CARBON DIOXIDE 14 MMOL/L (21-32); CHLORIDE 116 MMOL/L (98-107); CREATININE 3.8 MG/DL (0.55-1.30); POTASSIUM 2.9 MMOL/L (3.5-5.1); SODIUM 146 MMOL/L (136-145)
[2018-03-11] MEDS: levETIRAcetam 500mg/5ml Liquid GT SCH ×2 (09:10→21:02)
[2018-03-11] MEDS: Pantoprazole Inj IVP SCH ×2 (09:10→21:02)
[2018-03-11] MEDS: Aspirin Baby 81mg NG SCH (09:10)
[2018-03-11] MEDS: Heparin 5000 units/ml inj SUBQ SCH ×3 (09:12→21:26)
[2018-03-11] MEDS: Micafungin 100 MG in NS 110 ML IVPB SCH (10:29)
[2018-03-11] MEDS: Meropenem 500 MG in NS 55 ML IVPB SCH ×2 (10:30→22:14)
[2018-03-11] MEDS ORDERED: Tubing IV Secondary IV ONE (10:46)
[2018-03-11] MEDS ORDERED: Tubing Blood Filter IV ONE (10:46)
[2018-03-11] MEDS ORDERED: NS 275ml ONE (10:46)
[2018-03-11] MEDS ORDERED: D5NS 1000ml IV ONE (10:46)
[2018-03-11] MEDS: Sodium Citrate 30ml NG SCH ×2 (13:08→17:14)
[2018-03-11] MEDS: Potassium Chloride 10 MEQ in D5 1/2NS 1,000 ML IV SCH (13:08)
[2018-03-11] MEDS: Nitroglycerin Patch 0.4mg TDERMAL SCH (13:08)
--- NOTE | 2018-03-11 13:38 | Nephrology Progress Note ---
Assessment/Plan Problem List: (1) MARK (acute kidney injury) (2) CKD (chronic kidney disease) (3) Sepsis (4) Respiratory failure (5) Shock (6) Anemia Assessment acute on chronic renal failure: Oliguric ATN Hypotension? due to sepsis: Shock Acute respiratory failure PEG DM Shock liver Sever HypoAlbuminemia Plan 2D echo Ej Fx 55 % monitor Vanco levels Albumin bolus change IV fluids- start Bicitra GT pulm support urine studies avoid Nephrotoxics Monitor renal parameters Transfuse I unit PADMA: Cholelithiasis. 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, consistent with angiomyolipoma no [place] Subjective ROS Limited/Unobtainable: Yes Objective Objective Last 24 Hour Vital Signs Date Time Temp Pulse Resp B/P (MAP) Pulse Ox O2 Delivery O2 Flow Rate FiO2 03/11/18 13:08 113/39 03/11/18 13:00 98.5 63 16 113/39 (63) 100 03/11/18 12:52 73 17 30 03/11/18 12:00 Mechanical Ventilator 03/11/18 12:00 30 03/11/18 12:00 72 13 140/44 (76) 100 03/11/18 11:09 64 16 30 03/11/18 11:00 69 16 129/40 (69) 100 03/11/18 11:00 64 15 127/39 (68) 100 03/11/18 10:00 98.1 69 16 129/40 (69) 100 03/11/18 09:23 64 03/11/18 09:00 64 16 118/39 (65) 100 03/11/18 08:34 67 16 30 03/11/18 08:00 67 18 129/50 (76) 100 03/11/18 08:00 30 03/11/18 08:00 Mechanical Ventilator 03/11/18 07:00 90 20 120/48 (72) 100 03/11/18 06:55 89 26 30 03/11/18 06:00 72 16 131/44 (73) 100 03/11/18 05:02 71 16 30 03/11/18 05:00 69 17 142/46 (78) 100 03/11/18 04:00 97.7 66 16 142/50 (80) 100 03/11/18 04:00 15.0 30 03/11/18 04:00 Mechanical Ventilator 03/11/18 03:11 72 16 30 03/11/18 03:07 68 03/11/18 03:00 69 16 131/42 (71) 100 03/11/18 02:00 66 16 132/51 (78) 100 03/11/18 01:01 69 16 30 03/11/18 01:00 66 16 117/39 (65) 100 03/11/18 00:00 15.0 30 03/11/18 00:00 Mechanical Ventilator 03/11/18 00:00 98.0 68 15 133/48 (76) 100 03/10/18 23:31 67 03/10/18 23:15 68 16 30 03/10/18 23:00 69 17 128/61 (83) 100 03/10/18 22:00 67 16 121/59 (79) 100 03/10/18 21:16 66 16 30 03/10/18 21:00 65 16 132/42 (72) 100 03/10/18 20:34 132/42 03/10/18 20:00 Mechanical Ventilator 03/10/18 20:00 98.0 72 16 140/67 (91) 100 03/10/18 20:00 15.0 30 03/10/18 19:10 68 03/10/18 19:00 67 16 124/49 (74) 100 03/10/18 18:42 73 16 30 03/10/18 18:00 68 16 128/72 (90) 100 03/10/18 17:00 74 16 130/67 (88) 100 03/10/18 16:52 71 16 30 03/10/18 16:00 69 03/10/18 16:00 Mechanical Ventilator 03/10/18 16:00 15.0 30 03/10/18 16:00 99.1 83 17 119/54 (75) 100 03/10/18 15:25 99.1 03/10/18 15:00 82 20 114/89 (97) 100 03/10/18 14:39 80 24 30 03/10/18 14:00 75 14 106/59 (75) 100 Intake and Output 03/10/18 03/11/18 18:59 06:59 Intake Total 808 ml 1015 ml Output Total 720 ml 740 ml Balance 88 ml 275 ml IV Total 808 ml 955 ml Other 60 ml Output Urine Total 360 ml 610 ml Gastric Drainage Total 360 ml 130 ml # Bowel Movements 3 3 Laboratory Tests 03/11/18 04:15: White Blood Count 14.5H, Red Blood Count 3.00L, Hemoglobin 8.2L, Hematocrit 25.1L, Mean Corpuscular Volume 84, Mean Corpuscular Hemoglobin 27.5, Mean Corpuscular Hemoglobin Concent 32.7, Red Cell Distribution Width 13.5, Platelet Count 129L, Mean Platelet Volume 9.4, Neutrophils (%) (Auto) 79.1H, Lymphocytes (%) (Auto) 9.5L, Monocytes (%) (Auto) 9.2, Eosinophils (%) (Auto) 1.9, Basophils (%) (Auto) 0.4, Sodium Level 146H, Potassium Level 2.9L, Chloride Level 116H, Carbon Dioxide Level 14L, Anion Gap 16H, Blood Urea Nitrogen 103H, Creatinine 3.8H, Estimat Glomerular Filtration Rate , Glucose Level 162H, Uric Acid 8.0H, Calcium Level 7.0L, Phosphorus Level 3.7, Magnesium Level 2.7H, Total Bilirubin 0.4, Aspartate Amino Transf (AST/SGOT) 18, Alanine Aminotransferase (ALT/SGPT) 39, Alkaline Phosphatase 95, Troponin I 0.112H, Pro- B-Type Natriuretic Peptide 7260H, Total Protein 5.2L, Albumin 1.8L, Globulin 3.4 , Albumin/Globulin Ratio 0.5L, Random Vancomycin Level 20.2 Height (Feet): 5 Height (Inches): 10.00 Weight (Pounds): 160 General Appearance: no apparent distress Cardiovascular: normal rate Respiratory/Chest: decreased breath sounds Abdomen: soft Objective no change Phil Ortiz MD Mar 11, 2018 13:38
--- NOTE | 2018-03-11 13:58 | Infectious Diseases Prog Note ---
Assessment/Plan Assessment/Plan A; Septic shock Fungal sepsis UTI with MRSA & Citrobacter Acute respiratory failure Acute renal failure Chronic kidney disease Elevated transaminase Dementia P; Continue Zosyn, Micafungin & Vancomycin with F/U cultures Subjective ROS Limited/Unobtainable: Yes Cardiovascular: Reports: other - off pressor Allergies: Coded Allergies: PENICILLINS (Unverified Allergy, Mild, 12/04/12) Objective Vital Signs Last 24 Hour Vital Signs Date Time Temp Pulse Resp B/P (MAP) Pulse Ox O2 Delivery O2 Flow Rate FiO2 03/11/18 13:08 113/39 03/11/18 13:00 98.5 63 16 113/39 (63) 100 03/11/18 12:52 73 17 30 03/11/18 12:00 Mechanical Ventilator 03/11/18 12:00 30 03/11/18 12:00 72 13 140/44 (76) 100 03/11/18 11:09 64 16 30 03/11/18 11:00 69 16 129/40 (69) 100 03/11/18 11:00 64 15 127/39 (68) 100 03/11/18 10:00 98.1 69 16 129/40 (69) 100 03/11/18 09:23 64 03/11/18 09:00 64 16 118/39 (65) 100 03/11/18 08:34 67 16 30 03/11/18 08:00 67 18 129/50 (76) 100 03/11/18 08:00 30 03/11/18 08:00 Mechanical Ventilator 03/11/18 07:00 90 20 120/48 (72) 100 03/11/18 06:55 89 26 30 03/11/18 06:00 72 16 131/44 (73) 100 03/11/18 05:02 71 16 30 03/11/18 05:00 69 17 142/46 (78) 100 03/11/18 04:00 97.7 66 16 142/50 (80) 100 03/11/18 04:00 15.0 30 03/11/18 04:00 Mechanical Ventilator 03/11/18 03:11 72 16 30 03/11/18 03:07 68 03/11/18 03:00 69 16 131/42 (71) 100 03/11/18 02:00 66 16 132/51 (78) 100 03/11/18 01:01 69 16 30 03/11/18 01:00 66 16 117/39 (65) 100 03/11/18 00:00 15.0 30 03/11/18 00:00 Mechanical Ventilator 03/11/18 00:00 98.0 68 15 133/48 (76) 100 03/10/18 23:31 67 03/10/18 23:15 68 16 30 03/10/18 23:00 69 17 128/61 (83) 100 03/10/18 22:00 67 16 121/59 (79) 100 03/10/18 21:16 66 16 30 03/10/18 21:00 65 16 132/42 (72) 100 03/10/18 20:34 132/42 03/10/18 20:00 Mechanical Ventilator 03/10/18 20:00 98.0 72 16 140/67 (91) 100 03/10/18 20:00 15.0 30 03/10/18 19:10 68 03/10/18 19:00 67 16 124/49 (74) 100 03/10/18 18:42 73 16 30 03/10/18 18:00 68 16 128/72 (90) 100 03/10/18 17:00 74 16 130/67 (88) 100 03/10/18 16:52 71 16 30 03/10/18 16:00 69 03/10/18 16:00 Mechanical Ventilator 03/10/18 16:00 15.0 30 03/10/18 16:00 99.1 83 17 119/54 (75) 100 03/10/18 15:25 99.1 03/10/18 15:00 82 20 114/89 (97) 100 03/10/18 14:39 80 24 30 03/10/18 14:00 75 14 106/59 (75) 100 Height (Feet): 5 Height (Inches): 10.00 Weight (Pounds): 160 General Appearance: no acute distress HEENT: other Respiratory/Chest: lungs clear, other - on ventilator Cardiovascular: normal rate, other - femoral centrl line Abdomen: soft, non tender, other - GT feeding Extremities: no edema Skin: ulcers Neurologic/Psychiatric: unresponsiveness Laboratory Tests Test 03/11/18 04:15 03/11/18 13:40 White Blood Count 14.5 K/UL (4.8-10.8) H Red Blood Count 3.00 M/UL (4.20-5.40) L Hemoglobin 8.2 G/DL (12.0-16.0) L Hematocrit 25.1 % (37.0-47.0) L Mean Corpuscular Volume 84 FL (80-99) Mean Corpuscular Hemoglobin 27.5 PG (27.0-31.0) Mean Corpuscular Hemoglobin Concent 32.7 G/DL (32.0-36.0) Red Cell Distribution Width 13.5 % (11.6-14.8) Platelet Count 129 K/UL (150-450) L Mean Platelet Volume 9.4 FL (6.5-10.1) Neutrophils (%) (Auto) 79.1 % (45.0-75.0) H Lymphocytes (%) (Auto) 9.5 % (20.0-45.0) L Monocytes (%) (Auto) 9.2 % (1.0-10.0) Eosinophils (%) (Auto) 1.9 % (0.0-3.0) Basophils (%) (Auto) 0.4 % (0.0-2.0) Sodium Level 146 MMOL/L (136-145) H Potassium Level 2.9 MMOL/L (3.5-5.1) L Chloride Level 116 MMOL/L (98-107) H Carbon Dioxide Level 14 MMOL/L (21-32) L Anion Gap 16 mmol/L (5-15) H Blood Urea Nitrogen 103 mg/dL (7-18) H Creatinine 3.8 MG/DL (0.55-1.30) H Estimat Glomerular Filtration Rate mL/min (>60) Glucose Level 162 MG/DL (74-106) H Uric Acid 8.0 MG/DL (2.6-7.2) H Calcium Level 7.0 MG/DL (8.5-10.1) L Phosphorus Level 3.7 MG/DL (2.5-4.9) Magnesium Level 2.7 MG/DL (1.8-2.4) H Total Bilirubin 0.4 MG/DL (0.2-1.0) Aspartate Amino Transf (AST/SGOT) 18 U/L (15-37) Alanine Aminotransferase (ALT/SGPT) 39 U/L (12-78) Alkaline Phosphatase 95 U/L (46-116) Troponin I 0.112 ng/mL (0.000-0.056) Pro-B-Type Natriuretic Peptide 7260 pg/mL (0-125) H Total Protein 5.2 G/DL (6.4-8.2) L Albumin 1.8 G/DL (3.4-5.0) L Globulin 3.4 g/dL Albumin/Globulin Ratio 0.5 (1.0-2.7) L Random Vancomycin Level 20.2 ug/mL C-Reactive Protein, Quantitative Pending Current Medications Medications (Trade) Dose Ordered Sig/Gelacio Route PRN Reason Start Time Stop Time Status Last Admin Dose Admin Acetaminophen (Tylenol) 650 mg Q6H PRN GT FEVER 03/08/18 15:15 04/07/18 15:14 03/10/18 14:55 Albumin Human 500 ml @ 0 mls/hr Q0M ONCE IV 03/11/18 14:00 03/11/18 14:01 03/11/18 13:08 Albuterol/ Ipratropium (Albuterol/ Ipratropium) 3 ml Q4H PRN HHN Shortness of Breath 03/08/18 15:15 03/13/18 15:14 Aspirin (ASA) 81 mg DAILY NG 03/09/18 09:00 04/08/18 08:59 03/11/18 09:10 Atorvastatin Calcium (Lipitor) 10 mg BEDTIME GT 03/08/18 21:00 04/07/18 20:59 03/10/18 20:56 Chlorhexidine Gluconate (Xiomara-Hex 2%) 1 applic DAILY@2000 TOPIC 03/08/18 22:30 04/08/18 22:29 03/10/18 20:03 Dextrose (Dextrose 50%) 25 ml Q30M PRN IV Hypoglycemia 03/08/18 15:15 04/07/18 15:14 Dextrose (Dextrose 50%) 50 ml Q30M PRN IV Hypoglycemia 03/08/18 15:15 04/07/18 15:14 Heparin Sodium (Porcine) (Heparin 5000 units/ml) 5,000 units EVERY 12 HOURS SUBQ 03/08/18 21:00 04/07/18 20:59 03/11/18 09:12 Insulin Aspart (NovoLOG) BEFORE MEALS AND HS SUBQ 03/08/18 16:30 04/07/18 16:29 03/11/18 11:42 Levetiracetam (Keppra) 750 mg Q12HR GT 03/08/18 21:00 04/07/18 20:59 03/11/18 09:10 Meropenem 500 mg/ Sodium Chloride 55 ml @ 110 mls/hr Q12H IVPB 03/10/18 10:00 03/15/18 09:59 03/11/18 10:30 Micafungin Sodium 100 mg/Sodium Chloride 110 ml @ 110 mls/hr Q24H IVPB 03/11/18 10:00 03/18/18 09:59 03/11/18 10:29 Nitroglycerin (Ntg) 1 patch Q24H TDERMAL 03/11/18 13:00 04/10/18 12:59 03/11/18 13:08 Norepinephrine Bitartrate 4 mg/ Dextrose 250 ml @ 0 mls/hr Q24H IV 03/08/18 20:34 04/07/18 20:33 03/09/18 12:53 Ondansetron HCl (Zofran) 4 mg Q6H PRN IVP Nausea & Vomiting 03/08/18 15:15 04/07/18 15:14 Pantoprazole (Protonix) 40 mg EVERY 12 HOURS IVP 03/08/18 21:00 04/07/18 20:59 03/11/18 09:10 Potassium Chloride 10 meq/ Dextrose/Sodium Chloride 1,005 ml @ 75 mls/hr [id number] IV 03/11/18 14:00 04/10/18 13:59 03/11/18 13:08 Potassium Chloride 100 ml @ 50 mls/hr Q2H IVPB 03/11/18 13:30 03/11/18 17:29 03/11/18 13:08 Quetiapine Fumarate (SEROquel) 12.5 mg Q4H PRN ORAL agitation 03/09/18 19:45 04/08/18 19:44 Sodium Citrate (Bicitra) 30 ml EVERY 6 HOURS NG 03/11/18 12:45 04/10/18 12:44 03/11/18 13:08 Wilder French MD Mar 11, 2018 13:58
--- NOTE | 2018-03-11 14:38 | General Surgery Progress Note ---
General Surgery-Progress Note Subjective Additional Comments in ICU intubated on vent support. LFT's resolved. leukocytosis. labs noted Objective Last 24 Hour Vital Signs Date Time Temp Pulse Resp B/P (MAP) Pulse Ox O2 Delivery O2 Flow Rate FiO2 03/11/18 13:08 113/39 03/11/18 13:00 98.5 63 16 113/39 (63) 100 03/11/18 12:52 73 17 30 03/11/18 12:00 Mechanical Ventilator 03/11/18 12:00 30 03/11/18 12:00 72 13 140/44 (76) 100 03/11/18 11:09 64 16 30 03/11/18 11:00 69 16 129/40 (69) 100 03/11/18 11:00 64 15 127/39 (68) 100 03/11/18 10:00 98.1 69 16 129/40 (69) 100 03/11/18 09:23 64 03/11/18 09:00 64 16 118/39 (65) 100 03/11/18 08:34 67 16 30 03/11/18 08:00 67 18 129/50 (76) 100 03/11/18 08:00 30 03/11/18 08:00 Mechanical Ventilator 03/11/18 07:00 90 20 120/48 (72) 100 03/11/18 06:55 89 26 30 03/11/18 06:00 72 16 131/44 (73) 100 03/11/18 05:02 71 16 30 03/11/18 05:00 69 17 142/46 (78) 100 03/11/18 04:00 97.7 66 16 142/50 (80) 100 03/11/18 04:00 15.0 30 03/11/18 04:00 Mechanical Ventilator 03/11/18 03:11 72 16 30 03/11/18 03:07 68 03/11/18 03:00 69 16 131/42 (71) 100 03/11/18 02:00 66 16 132/51 (78) 100 03/11/18 01:01 69 16 30 03/11/18 01:00 66 16 117/39 (65) 100 03/11/18 00:00 15.0 30 03/11/18 00:00 Mechanical Ventilator 03/11/18 00:00 98.0 68 15 133/48 (76) 100 10/27/18 23:31 67 03/10/18 23:15 68 16 30 03/10/18 23:00 69 17 128/61 (83) 100 03/10/18 22:00 67 16 121/59 (79) 100 03/10/18 21:16 66 16 30 03/10/18 21:00 65 16 132/42 (72) 100 03/10/18 20:34 132/42 03/10/18 20:00 Mechanical Ventilator 03/10/18 20:00 98.0 72 16 140/67 (91) 100 03/10/18 20:00 15.0 30 03/10/18 19:10 68 03/10/18 19:00 67 16 124/49 (74) 100 03/10/18 18:42 73 16 30 03/10/18 18:00 68 16 128/72 (90) 100 03/10/18 17:00 74 16 130/67 (88) 100 03/10/18 16:52 71 16 30 03/10/18 16:00 69 03/10/18 16:00 Mechanical Ventilator 03/10/18 16:00 15.0 30 03/10/18 16:00 99.1 83 17 119/54 (75) 100 03/10/18 15:25 99.1 03/10/18 15:00 82 20 114/89 (97) 100 03/10/18 14:39 80 24 30 I&O Intake and Output 03/10/18 03/11/18 18:59 06:59 Intake Total 808 ml 1015 ml Output Total 720 ml 740 ml Balance 88 ml 275 ml IV Total 808 ml 955 ml Other 60 ml Output Urine Total 360 ml 610 ml Gastric Drainage Total 360 ml 130 ml # Bowel Movements 3 3 Dressing: saturated Wound: other Drains: other Cardiovascular: RSR, other Respiratory: clear, other - on vent Abdomen: soft, distended, present bowel sounds Extremities: no cyanosis Laboratory Tests Test 03/11/18 04:15 03/11/18 13:40 White Blood Count 14.5 K/UL (4.8-10.8) H Red Blood Count 3.00 M/UL (4.20-5.40) L Hemoglobin 8.2 G/DL (12.0-16.0) L Hematocrit 25.1 % (37.0-47.0) L Mean Corpuscular Volume 84 FL (80-99) Mean Corpuscular Hemoglobin 27.5 PG (27.0-31.0) Mean Corpuscular Hemoglobin Concent 32.7 G/DL (32.0-36.0) Red Cell Distribution Width 13.5 % (11.6-14.8) Platelet Count 129 K/UL (150-450) L Mean Platelet Volume 9.4 FL (6.5-10.1) Neutrophils (%) (Auto) 79.1 % (45.0-75.0) H Lymphocytes (%) (Auto) 9.5 % (20.0-45.0) L Monocytes (%) (Auto) 9.2 % (1.0-10.0) Eosinophils (%) (Auto) 1.9 % (0.0-3.0) Basophils (%) (Auto) 0.4 % (0.0-2.0) Sodium Level 146 MMOL/L (136-145) H Potassium Level 2.9 MMOL/L (3.5-5.1) L Chloride Level 116 MMOL/L (98-107) H Carbon Dioxide Level 14 MMOL/L (21-32) L Anion Gap 16 mmol/L (5-15) H Blood Urea Nitrogen 103 mg/dL (7-18) H Creatinine 3.8 MG/DL (0.55-1.30) H Estimat Glomerular Filtration Rate mL/min (>60) Glucose Level 162 MG/DL (74-106) H Uric Acid 8.0 MG/DL (2.6-7.2) H Calcium Level 7.0 MG/DL (8.5-10.1) L Phosphorus Level 3.7 MG/DL (2.5-4.9) Magnesium Level 2.7 MG/DL (1.8-2.4) H Total Bilirubin 0.4 MG/DL (0.2-1.0) Aspartate Amino Transf (AST/SGOT) 18 U/L (15-37) Alanine Aminotransferase (ALT/SGPT) 39 U/L (12-78) Alkaline Phosphatase 95 U/L (46-116) Troponin I 0.112 ng/mL (0.000-0.056) Pro-B-Type Natriuretic Peptide 7260 pg/mL (0-125) H Total Protein 5.2 G/DL (6.4-8.2) L Albumin 1.8 G/DL (3.4-5.0) L Globulin 3.4 g/dL Albumin/Globulin Ratio 0.5 (1.0-2.7) L Random Vancomycin Level 20.2 ug/mL C-Reactive Protein, Quantitative 20.6 mg/dL (0.00-0.90) H Plan Problems: (1) Abnormal LFTs Assessment & Plan: likely shock liver from overt sepsis. labs improving abdominal ultrasound reviewed recovering / resolved (2) Decubitus ulcer of sacral region, unstageable Assessment & Plan: full thickness pressure injury (L)4cm x(W)3.4cm with approx 80% yellow slough ,otherwise pink ,(+) maceration.Hyperpigmentation periwound bordered by darker skin tone. DTPI noted to L heel oozing small amt serosanguineous exudate (L)6cm x (W)9cm.Wound bed fluctuant.DTPI noted to medial R heel (L)2cm x (W)2.5cm dry area noted along border but wound is fluctuant centrally. present upon admission. will be cared for during hospital stay will plan for debridement once stable unlikely etiology of leukocytosis Tx.Plan: Cleanse sacral wound with Saline.Apply Therahoney gel .Apply Cavilon to borders .Cover with Optifoam drsg Daily and prn. Apply Cavilon wipe to R and L heels. Cover with Biatain drsg.Change prn. Reposition at least every 2hours or as tolerated. Off-load heels with pillow. (3) Severe sepsis Jean Marie Park Mar 11, 2018 14:38
--- NOTE | 2018-03-11 18:03 | Cardiology Progress Note ---
Assessment/Plan Assessment/Plan 1. Septic shock, hydration, Levophed gtt if SBP <90 mmHg, 2D echocardiography with normal LV systolic function with normal intracardiac filling pressures. Continue hydration. 2. Atrial fibrillation with rapid ventricular response, converted to SR, continue the current regimen. 3. History of hypertension. 4. History of diabetes mellitus. 5. History of seizure disorder. 6. UTI. Subjective Subjective Sinus rhythm at rate of 67. Intubated. Objective Last 24 Hour Vital Signs Date Time Temp Pulse Resp B/P (MAP) Pulse Ox O2 Delivery O2 Flow Rate FiO2 03/11/18 17:16 80 17 30 03/11/18 17:00 98.5 76 16 138/50 (79) 100 03/11/18 16:05 76 03/11/18 16:00 77 18 141/48 (79) 100 03/11/18 16:00 Mechanical Ventilator 03/11/18 16:00 30 03/11/18 15:04 80 18 30 03/11/18 15:00 73 18 131/48 (75) 100 03/11/18 14:00 77 20 131/70 (90) 100 03/11/18 13:08 113/39 03/11/18 13:00 98.5 63 16 113/39 (63) 100 03/11/18 12:52 73 17 30 03/11/18 12:16 68 03/11/18 12:00 Mechanical Ventilator 03/11/18 12:00 30 03/11/18 12:00 72 13 140/44 (76) 100 03/11/18 11:09 64 16 30 03/11/18 11:00 69 16 129/40 (69) 100 03/11/18 11:00 64 15 127/39 (68) 100 03/11/18 10:00 98.1 69 16 129/40 (69) 100 03/11/18 09:23 64 03/11/18 09:00 64 16 118/39 (65) 100 03/11/18 08:34 67 16 30 03/11/18 08:00 67 18 129/50 (76) 100 03/11/18 08:00 30 03/11/18 08:00 Mechanical Ventilator 03/11/18 07:00 90 20 120/48 (72) 100 03/11/18 06:55 89 26 30 03/11/18 06:00 72 16 131/44 (73) 100 03/11/18 05:02 71 16 30 03/11/18 05:00 69 17 142/46 (78) 100 03/11/18 04:00 97.7 66 16 142/50 (80) 100 03/11/18 04:00 15.0 30 03/11/18 04:00 Mechanical Ventilator 03/11/18 03:11 72 16 30 03/11/18 03:07 68 03/11/18 03:00 69 16 131/42 (71) 100 03/11/18 02:00 66 16 132/51 (78) 100 03/11/18 01:01 69 16 30 03/11/18 01:00 66 16 117/39 (65) 100 03/11/18 00:00 15.0 30 03/11/18 00:00 Mechanical Ventilator 03/11/18 00:00 98.0 68 15 133/48 (76) 100 03/10/18 23:31 67 03/10/18 23:15 68 16 30 03/10/18 23:00 69 17 128/61 (83) 100 03/10/18 22:00 67 16 121/59 (79) 100 03/10/18 21:16 66 16 30 03/10/18 21:00 65 16 132/42 (72) 100 03/10/18 20:34 132/42 03/10/18 20:00 Mechanical Ventilator 03/10/18 20:00 98.0 72 16 140/67 (91) 100 03/10/18 20:00 15.0 30 03/10/18 19:10 68 03/10/18 19:00 67 16 124/49 (74) 100 03/10/18 18:42 73 16 30 Intake and Output 03/10/18 03/11/18 18:59 06:59 Intake Total 808 ml 1015 ml Output Total 720 ml 740 ml Balance 88 ml 275 ml IV Total 808 ml 955 ml Other 60 ml Output Urine Total 360 ml 610 ml Gastric Drainage Total 360 ml 130 ml # Bowel Movements 3 3 2D Echo: LVEF 55%, Mild LVH, Grade I LVDD, RVSP 20 mmHg Laboratory Tests Test 03/11/18 04:15 03/11/18 13:40 White Blood Count 14.5 K/UL (4.8-10.8) H Red Blood Count 3.00 M/UL (4.20-5.40) L Hemoglobin 8.2 G/DL (12.0-16.0) L Hematocrit 25.1 % (37.0-47.0) L Mean Corpuscular Volume 84 FL (80-99) Mean Corpuscular Hemoglobin 27.5 PG (27.0-31.0) Mean Corpuscular Hemoglobin Concent 32.7 G/DL (32.0-36.0) Red Cell Distribution Width 13.5 % (11.6-14.8) Platelet Count 129 K/UL (150-450) L Mean Platelet Volume 9.4 FL (6.5-10.1) Neutrophils (%) (Auto) 79.1 % (45.0-75.0) H Lymphocytes (%) (Auto) 9.5 % (20.0-45.0) L Monocytes (%) (Auto) 9.2 % (1.0-10.0) Eosinophils (%) (Auto) 1.9 % (0.0-3.0) Basophils (%) (Auto) 0.4 % (0.0-2.0) Sodium Level 146 MMOL/L (136-145) H Potassium Level 2.9 MMOL/L (3.5-5.1) L Chloride Level 116 MMOL/L (98-107) H Carbon Dioxide Level 14 MMOL/L (21-32) L Anion Gap 16 mmol/L (5-15) H Blood Urea Nitrogen 103 mg/dL (7-18) H Creatinine 3.8 MG/DL (0.55-1.30) H Estimat Glomerular Filtration Rate mL/min (>60) Glucose Level 162 MG/DL (74-106) H Uric Acid 8.0 MG/DL (2.6-7.2) H Calcium Level 7.0 MG/DL (8.5-10.1) L Phosphorus Level 3.7 MG/DL (2.5-4.9) Magnesium Level 2.7 MG/DL (1.8-2.4) H Total Bilirubin 0.4 MG/DL (0.2-1.0) Aspartate Amino Transf (AST/SGOT) 18 U/L (15-37) Alanine Aminotransferase (ALT/SGPT) 39 U/L (12-78) Alkaline Phosphatase 95 U/L (46-116) Troponin I 0.112 ng/mL (0.000-0.056) Pro-B-Type Natriuretic Peptide 7260 pg/mL (0-125) H Total Protein 5.2 G/DL (6.4-8.2) L Albumin 1.8 G/DL (3.4-5.0) L Globulin 3.4 g/dL Albumin/Globulin Ratio 0.5 (1.0-2.7) L Random Vancomycin Level 20.2 ug/mL C-Reactive Protein, Quantitative 20.6 mg/dL (0.00-0.90) H Objective HEENT: Atraumatic and normocephalic. Anicteric. Pupils are equal, round, and reactive to light and accommodation. Extraocular muscles intact. NECK: JVP less than 5 cm. No carotid bruits. Carotid upstrokes 2+ bilaterally. CARDIOVASCULAR SYSTEM: Normal S1, S2. Regular rhythm. No murmurs, gallops, or rubs. LUNGS: Diminished breath sounds in both bases. ABDOMEN: Soft, nontender, and nondistended. No hepatosplenomegaly. Positive G-tube in place. EXTREMITIES: No evidence of edema, clubbing, or cyanosis. Everett Tomas MD Mar 11, 2018 18:03
--- NOTE | 2018-03-11 18:10 | Pulmonolgy Critical Care Note ---
Critical Care - Asmt/Plan Assessment/Plan: Critical Care - Asmt/Plan Problems: (1) long term resident (2) Anemia (3) PEG (percutaneous endoscopic gastrostomy) status (4) Seizure disorder (5) CKD (chronic kidney disease) (6) MARK (acute kidney injury) (7) Severe sepsis (8) UTI (urinary tract infection) (9) Respiratory failure (10) NSTEMI (non-ST elevated myocardial infarction) Assessment/Plan: ASSESSMENT: CXR: stable * SIRS/SEPSIS * Shock, likely septic * VDRF * MSOF * MARK on CKD * Abnormal LFT's * NSTEMI, likely demand ischemia * Mild PVC on CXR & elevated BNP but clinically appears dry * ? ADHF * Sz DO * NHR * Bedbound @ baseline * Anemia * S/P GT PLAN: * Admit to ICU * Continue ventilatory support, AC 14 VC 450 PEEP 5, FiO2 40 * Check ABG, adjust vent accordingly * PRN HHN's * Titrate NE to keep MAP > 60 * Monitor volumes, gentle IVF hydration * Monitor renal function, may need HD * Trend ECG/trop * TTE * Cardiology evaluation * Start Vancomycin & Zosyn, F/U Cx's * F/U CX's * Check cortisol, TSH * NPO, hold TF's * Reconcile home meds * Continue AED's * DVT Px: Hep SQ * FC CCT 100 Critical Care - Objective Last 24 Hour Vital Signs Date Time Temp Pulse Resp B/P (MAP) Pulse Ox O2 Delivery O2 Flow Rate FiO2 03/08/18 13:40 104/58 03/08/18 13:40 98.3 101 18 104/58 100 Mechanical Ventilator 15.0 40 03/08/18 13:35 84/47 03/08/18 13:30 98.3 101 18 85/48 100 Mechanical Ventilator 15.0 40 03/08/18 13:30 85/48 03/08/18 13:25 75/41 03/08/18 13:12 107 17 40 03/08/18 13:00 98.0 96 16 86/42 100 Mechanical Ventilator 15.0 45 03/08/18 12:30 98.0 101 16 92/34 100 Mechanical Ventilator 15.0 45 03/08/18 11:57 98.0 101 16 86/42 100 Mechanical Ventilator 15.0 45 03/08/18 11:53 106 16 45 03/08/18 10:54 98 16 93/35 100 Mechanical Ventilator 15.0 50 03/08/18 10:24 121 16 Mechanical Ventilator 50 03/08/18 10:18 111 16 50 03/08/18 10:05 15.0 50 03/08/18 10:00 111 16 Mechanical Ventilator 15.0 50 03/08/18 10:00 111 16 66/32 100 Mechanical Ventilator 15.0 50 03/08/18 09:50 104 22 105/50 100 Non-Rebreather 15.0 Status: other - Intubated, sedated Condition: critical HEENT: atraumatic, normocephalic, other - ETT Lungs: rales - @ bases, o/w CTA Heart: HR/BP unstable Abdomen: soft, non-tender, active bowel sounds, feeding tube Extremities: no C/C/E Micro: Microbiology Date/Time Source Procedure Growth Status 03/08/18 10:20 Rectal Mucosa Received Blood Sugars: BS controlled Critical Care - Subjective ROS Limited/Unobtainable: Yes ICU Day: 1 Intubation Day: 1 Interval Events: 82 F NHR h/o Sz DO, bedbound @ baseline, GT, CKD BIB EMS with AMS Upon arrival to ED BP was borderline and marked respiratory distress, intubated by ERMD W/U thus far suggestive of UROSEPSIS with MSOF ---> MARK on CKD, abnl LFT's and NSTEMI D/W grand-daughter @ bedside, family wants all aggressive measures Condition: critical IV Access: central - R fem CVC EKG Rhythm: Sinus Rhythm FI02: 40 Vent Support Breath Rate: 16 Vent Support Mode: AC Vent Tidal Volume: 550 Sputum Amount: Scant PEEP: 0.0 PIP: 28 Subjective: KARRIE CXR: Mild PVC ET Position: 23 Labs: Laboratory Tests Test 03/08/18 10:00 03/08/18 11:04 03/08/18 11:46 White Blood Count 14.4 K/UL (4.8-10.8) H Red Blood Count 3.39 M/UL (4.20-5.40) L Hemoglobin 9.1 G/DL (12.0-16.0) L Hematocrit 28.5 % (37.0-47.0) L Mean Corpuscular Volume 84 FL (80-99) Mean Corpuscular Hemoglobin 26.9 PG (27.0-31.0) L Mean Corpuscular Hemoglobin Concent 32.0 G/DL (32.0-36.0) Red Cell Distribution Width 13.7 % (11.6-14.8) Platelet Count 169 K/UL (150-450) Mean Platelet Volume 10.3 FL (6.5-10.1) H Neutrophils (%) (Auto) 80.0 % (45.0-75.0) H Lymphocytes (%) (Auto) 9.1 % (20.0-45.0) L Monocytes (%) (Auto) 10.1 % (1.0-10.0) H Eosinophils (%) (Auto) 0.0 % (0.0-3.0) Basophils (%) (Auto) 0.8 % (0.0-2.0) Prothrombin Time 12.0 SEC (9.30-11.50) H Prothromb Time International Ratio 1.1 (0.9-1.1) Activated Partial Thromboplast Time 48 SEC (23-33) H Sodium Level 141 MMOL/L (136-145) Potassium Level 3.5 MMOL/L (3.5-5.1) Chloride Level 109 MMOL/L (98-107) H Carbon Dioxide Level 17 MMOL/L (21-32) L Anion Gap 15 mmol/L (5-15) Blood Urea Nitrogen 126 mg/dL (7-18) H Creatinine 4.3 MG/DL (0.55-1.30) H Estimat Glomerular Filtration Rate mL/min (>60) Glucose Level 296 MG/DL (74-106) H Lactic Acid Level 1.80 mmol/L (0.4-2.0) Calcium Level 8.4 MG/DL (8.5-10.1) L Total Bilirubin 0.2 MG/DL (0.2-1.0) Aspartate Amino Transf (AST/SGOT) 66 U/L (15-37) H Alanine Aminotransferase (ALT/SGPT) 125 U/L (12-78) H Alkaline Phosphatase 159 U/L (46-116) H Total Creatine Kinase 253 U/L (26-308) Troponin I 0.271 ng/mL (0.000-0.056) Pro-B-Type Natriuretic Peptide 82104 pg/mL (0-125) H Total Protein 5.9 G/DL (6.4-8.2) L Albumin 1.6 G/DL (3.4-5.0) L Globulin 4.3 g/dL Albumin/Globulin Ratio 0.4 (1.0-2.7) L Lipase 122 U/L (73-393) Arterial Blood pH 7.441 (7.350-7.450) Arterial Blood Partial Pressure CO2 17.6 mmHg (35.0-45.0) *L Arterial Blood Partial Pressure O2 188.8 mmHg (75.0-100.0) H Arterial Blood HCO3 11.7 mmol/L (22.0-26.0) *L Arterial Blood Oxygen Saturation 99.0 % (95-100) Arterial Blood Base Excess -11.0 (-2-2) *L Micheal Test Positive Urine Color Brown Urine Appearance Very cloudy Urine pH 5 (4.5-8.0) Urine Specific [place] 1.020 (1.005-1.035) Urine Protein 3+ (NEGATIVE) H Urine Glucose (UA) Negative (NEGATIVE) Urine Ketones Negative (NEGATIVE) Urine Blood 5+ (NEGATIVE) H Urine Nitrite Negative (NEGATIVE) Urine Bilirubin Negative (NEGATIVE) Urine Urobilinogen Normal MG/DL (0.0-1.0) Urine Leukocyte Esterase 3+ (NEGATIVE) H Urine RBC 40-60 /HPF (0 - 2) H Urine WBC Tntc /HPF (0 - 2) H Urine Squamous Epithelial Cells Occasional /LPF Urine Transitional Epithelial Cells /LPF (NONE) Urine Bacteria Many /HPF (NONE) H Critical Care - Objective Last 24 Hour Vital Signs Date Time Temp Pulse Resp B/P (MAP) Pulse Ox O2 Delivery O2 Flow Rate FiO2 03/11/18 17:16 80 17 30 03/11/18 17:00 98.5 76 16 138/50 (79) 100 03/11/18 16:05 76 03/11/18 16:00 77 18 141/48 (79) 100 03/11/18 16:00 Mechanical Ventilator 03/11/18 16:00 30 03/11/18 15:04 80 18 30 03/11/18 15:00 73 18 131/48 (75) 100 03/11/18 14:00 77 20 131/70 (90) 100 03/11/18 13:08 113/39 03/11/18 13:00 98.5 63 16 113/39 (63) 100 03/11/18 12:52 73 17 30 03/11/18 12:16 68 03/11/18 12:00 Mechanical Ventilator 03/11/18 12:00 30 03/11/18 12:00 72 13 140/44 (76) 100 03/11/18 11:09 64 16 30 03/11/18 11:00 69 16 129/40 (69) 100 03/11/18 11:00 64 15 127/39 (68) 100 03/11/18 10:00 98.1 69 16 129/40 (69) 100 03/11/18 09:23 64 03/11/18 09:00 64 16 118/39 (65) 100 03/11/18 08:34 67 16 30 03/11/18 08:00 67 18 129/50 (76) 100 03/11/18 08:00 30 03/11/18 08:00 Mechanical Ventilator 03/11/18 07:00 90 20 120/48 (72) 100 03/11/18 06:55 89 26 30 03/11/18 06:00 72 16 131/44 (73) 100 03/11/18 05:02 71 16 30 03/11/18 05:00 69 17 142/46 (78) 100 03/11/18 04:00 97.7 66 16 142/50 (80) 100 03/11/18 04:00 15.0 30 03/11/18 04:00 Mechanical Ventilator 03/11/18 03:11 72 16 30 03/11/18 03:07 68 03/11/18 03:00 69 16 131/42 (71) 100 03/11/18 02:00 66 16 132/51 (78) 100 03/11/18 01:01 69 16 30 03/11/18 01:00 66 16 117/39 (65) 100 03/11/18 00:00 15.0 30 03/11/18 00:00 Mechanical Ventilator 03/11/18 00:00 98.0 68 15 133/48 (76) 100 03/10/18 23:31 67 03/10/18 23:15 68 16 30 03/10/18 23:00 69 17 128/61 (83) 100 03/10/18 22:00 67 16 121/59 (79) 100 03/10/18 21:16 66 16 30 03/10/18 21:00 65 16 132/42 (72) 100 03/10/18 20:34 132/42 03/10/18 20:00 Mechanical Ventilator 03/10/18 20:00 98.0 72 16 140/67 (91) 100 03/10/18 20:00 15.0 30 03/10/18 19:10 68 03/10/18 19:00 67 16 124/49 (74) 100 03/10/18 18:42 73 16 30 Accucheck: 144 Critical Care - Subjective ROS Limited/Unobtainable: Yes FI02: 30 Vent Support Breath Rate: 16 Vent Support Mode: AC Vent Tidal Volume: 550 Sputum Amount: Scant PEEP: 5.0 PIP: 24 Tube Feeding Amount: 20 I&O: Intake and Output 03/10/18 03/11/18 18:59 06:59 Intake Total 808 ml 1015 ml Output Total 720 ml 740 ml Balance 88 ml 275 ml IV Total 808 ml 955 ml Other 60 ml Output Urine Total 360 ml 610 ml Gastric Drainage Total 360 ml 130 ml # Bowel Movements 3 3 ET-Tube: 7.5 ET Position: 23 Brian Cardona MD Mar 11, 2018 18:10
--- NOTE | 2018-03-11 18:57 | General Progress Note ---
Assessment/Plan Status: stable Assessment/Plan # Anemia of chronic disease -- baseline appears to be 11-12 reviewed labs from 2012 --> at this time decreased, anemia panel has been decreased --> transfuse as needed, hgb goal >7 --> no evidence of hemolysis noted --> Blood tx: 03/10, # Leukocytosis likely related to septic shock --> Remains elevated --> on abx and ivf --> appreciate ID recs and workup # Thrombocytopenia likely related to infection, appears baseline 100-150k --> imaging has been reviewed --> medications have been reviewed --> hepatitis panel reviewed from before # Abnormal LFTs --> Currently has normalized. --> likely shock liver from overt sepsis. --> trend labs # Decubitus ulcer of sacral region, unstageable, 5cm x 4cm unstagable sacral decubitus ulcer, no drainage, mild periedge edema/erythema, soft, no odor present upon admission. will be cared for during hospital sta # Severe sepsis --> on abx as per ID # Respiratory failure intubated --> as per pulm Greatly appreciate consultation! Subjective Date patient seen: Mar 11, 2018 ROS Limited/Unobtainable: Yes Hematologic/Lymphatic: Reports: anemia Allergies: Coded Allergies: PENICILLINS (Unverified Allergy, Mild, 12/04/12) Subjective S/P blood tx, Hgb improved to 8.2 Objective Last 24 Hour Vital Signs Date Time Temp Pulse Resp B/P (MAP) Pulse Ox O2 Delivery O2 Flow Rate FiO2 03/11/18 18:00 78 17 149/53 (85) 100 03/11/18 17:16 80 17 30 03/11/18 17:00 98.5 76 16 138/50 (79) 100 03/11/18 16:05 76 03/11/18 16:00 77 18 141/48 (79) 100 03/11/18 16:00 Mechanical Ventilator 03/11/18 16:00 30 03/11/18 15:04 80 18 30 03/11/18 15:00 73 18 131/48 (75) 100 03/11/18 14:00 77 20 131/70 (90) 100 03/11/18 13:08 113/39 03/11/18 13:00 98.5 63 16 113/39 (63) 100 03/11/18 12:52 73 17 30 03/11/18 12:16 68 03/11/18 12:00 Mechanical Ventilator 03/11/18 12:00 30 03/11/18 12:00 72 13 140/44 (76) 100 03/11/18 11:09 64 16 30 03/11/18 11:00 69 16 129/40 (69) 100 03/11/18 11:00 64 15 127/39 (68) 100 03/11/18 10:00 98.1 69 16 129/40 (69) 100 03/11/18 09:23 64 03/11/18 09:00 64 16 118/39 (65) 100 03/11/18 08:34 67 16 30 03/11/18 08:00 67 18 129/50 (76) 100 03/11/18 08:00 30 03/11/18 08:00 Mechanical Ventilator 03/11/18 07:00 90 20 120/48 (72) 100 03/11/18 06:55 89 26 30 03/11/18 06:00 72 16 131/44 (73) 100 03/11/18 05:02 71 16 30 03/11/18 05:00 69 17 142/46 (78) 100 03/11/18 04:00 97.7 66 16 142/50 (80) 100 03/11/18 04:00 15.0 30 03/11/18 04:00 Mechanical Ventilator 03/11/18 03:11 72 16 30 03/11/18 03:07 68 03/11/18 03:00 69 16 131/42 (71) 100 03/11/18 02:00 66 16 132/51 (78) 100 03/11/18 01:01 69 16 30 03/11/18 01:00 66 16 117/39 (65) 100 03/11/18 00:00 15.0 30 03/11/18 00:00 Mechanical Ventilator 03/11/18 00:00 98.0 68 15 133/48 (76) 100 03/10/18 23:31 67 03/10/18 23:15 68 16 30 03/10/18 23:00 69 17 128/61 (83) 100 03/10/18 22:00 67 16 121/59 (79) 100 03/10/18 21:16 66 16 30 03/10/18 21:00 65 16 132/42 (72) 100 03/10/18 20:34 132/42 03/10/18 20:00 Mechanical Ventilator 03/10/18 20:00 98.0 72 16 140/67 (91) 100 03/10/18 20:00 15.0 30 03/10/18 19:10 68 03/10/18 19:00 67 16 124/49 (74) 100 Intake and Output 03/10/18 03/11/18 18:59 06:59 Intake Total 808 ml 1015 ml Output Total 720 ml 740 ml Balance 88 ml 275 ml IV Total 808 ml 955 ml Other 60 ml Output Urine Total 360 ml 610 ml Gastric Drainage Total 360 ml 130 ml # Bowel Movements 3 3 Laboratory Tests 03/11/18 04:15: White Blood Count 14.5H, Red Blood Count 3.00L, Hemoglobin 8.2L, Hematocrit 25.1L, Mean Corpuscular Volume 84, Mean Corpuscular Hemoglobin 27.5, Mean Corpuscular Hemoglobin Concent 32.7, Red Cell Distribution Width 13.5, Platelet Count 129L, Mean Platelet Volume 9.4, Neutrophils (%) (Auto) 79.1H, Lymphocytes (%) (Auto) 9.5L, Monocytes (%) (Auto) 9.2, Eosinophils (%) (Auto) 1.9, Basophils (%) (Auto) 0.4, Sodium Level 146H, Potassium Level 2.9L, Chloride Level 116H, Carbon Dioxide Level 14L, Anion Gap 16H, Blood Urea Nitrogen 103H, Creatinine 3.8H, Estimat Glomerular Filtration Rate , Glucose Level 162H, Uric Acid 8.0H, Calcium Level 7.0L, Phosphorus Level 3.7, Magnesium Level 2.7H, Total Bilirubin 0.4, Aspartate Amino Transf (AST/SGOT) 18, Alanine Aminotransferase (ALT/SGPT) 39, Alkaline Phosphatase 95, Troponin I 0.112H, Pro- B-Type Natriuretic Peptide 7260H, Total Protein 5.2L, Albumin 1.8L, Globulin 3.4 , Albumin/Globulin Ratio 0.5L, Random Vancomycin Level 20.2 03/11/18 13:40: C-Reactive Protein, Quantitative 20.6H Height (Feet): 5 Height (Inches): 10.00 Weight (Pounds): 160 General Appearance: no apparent distress EENT: PERRL/EOMI Neck: normal alignment Cardiovascular: normal peripheral pulses Respiratory/Chest: normal breath sounds Abdomen: normal bowel sounds Aleksandr Kern MD Mar 11, 2018 18:57
[2018-03-11] MEDS: Dyna-Hex 2% Top Sol 2oz TOPIC SCH (21:02)
--- NOTE | 2018-03-11 21:09 | General Progress Note ---
Assessment/Plan Problem List: (1) CKD (chronic kidney disease) ICD Codes: N18.9 - Chronic kidney disease, unspecified SNOMED: 060960878 (2) MARK (acute kidney injury) ICD Codes: N17.9 - Acute kidney failure, unspecified SNOMED: 08307744 (3) Sepsis ICD Codes: A41.9 - Sepsis, unspecified organism SNOMED: 43921358 (4) Abnormal LFTs ICD Codes: R94.5 - Abnormal results of liver function studies SNOMED: 469230748 (5) Decubitus ulcer of sacral region, unstageable ICD Codes: L89.150 - Pressure ulcer of sacral region, unstageable SNOMED: 872036644, 617639676 (6) Hyperglycemia ICD Codes: R73.9 - Hyperglycemia, unspecified; N18.9 - Chronic kidney disease, unspecified SNOMED: 09487366 (7) Metabolic acidosis ICD Codes: E87.2 - Acidosis; N18.9 - Chronic kidney disease, unspecified SNOMED: 06316513 (8) Renal failure (ARF), acute on chronic ICD Codes: N17.9 - Acute kidney failure, unspecified; N18.9 - Chronic kidney disease, unspecified SNOMED: 210331397 Qualifiers: Qualified Codes: N17.9 - Acute kidney failure, unspecified; N18.4 - Chronic kidney disease, stage 4 (severe) (9) Anemia ICD Codes: D64.9 - Anemia, unspecified SNOMED: 891941541 Qualifiers: Qualified Codes: D64.9 - Anemia, unspecified (10) Respiratory failure ICD Codes: J96.90 - Respiratory failure, unspecified, unspecified whether with hypoxia or hypercapnia SNOMED: 388630607 Qualifiers: Qualified Codes: J96.00 - Acute respiratory failure, unspecified whether with hypoxia or hypercapnia (11) UTI (urinary tract infection) ICD Codes: N39.0 - Urinary tract infection, site not specified SNOMED: 91636520 Qualifiers: Qualified Codes: T83.511A - Infection and inflammatory reaction due to indwelling urethral catheter, initial encounter; N39.0 - Urinary tract infection , site not specified (12) NSTEMI (non-ST elevated myocardial infarction) ICD Codes: I21.4 - Non-ST elevation (NSTEMI) myocardial infarction SNOMED: 034194980 (13) Severe sepsis ICD Codes: A41.9 - Sepsis, unspecified organism; R65.20 - Severe sepsis without septic shock SNOMED: 23223778 (14) Encephalopathy due to metabolic factor or toxin SNOMED: 273051911 Status: progressing Assessment/Plan respirator failure intubated sepsis pna azotemia dm elev sugar poor prognosis lyte abnormality severe hypokalemia .treatment per renal intubated ARF poor prognosis Subjective ROS Limited/Unobtainable: Yes Allergies: Coded Allergies: PENICILLINS (Unverified Allergy, Mild, 12/04/12) Objective Last 24 Hour Vital Signs Date Time Temp Pulse Resp B/P (MAP) Pulse Ox O2 Delivery O2 Flow Rate FiO2 03/11/18 20:34 153/85 03/11/18 20:00 30 03/11/18 20:00 Mechanical Ventilator 03/11/18 20:00 98.7 77 21 153/85 (107) 100 03/11/18 19:24 77 18 30 03/11/18 19:00 78 17 149/53 (85) 100 03/11/18 19:00 76 15 131/73 (92) 100 03/11/18 18:00 78 17 149/53 (85) 100 03/11/18 17:16 80 17 30 03/11/18 17:00 98.5 76 16 138/50 (79) 100 03/11/18 16:05 76 03/11/18 16:00 77 18 141/48 (79) 100 03/11/18 16:00 Mechanical Ventilator 03/11/18 16:00 30 03/11/18 15:04 80 18 30 03/11/18 15:00 73 18 131/48 (75) 100 03/11/18 14:00 77 20 131/70 (90) 100 03/11/18 13:08 113/39 03/11/18 13:00 98.5 63 16 113/39 (63) 100 03/11/18 12:52 73 17 30 03/11/18 12:16 68 03/11/18 12:00 Mechanical Ventilator 03/11/18 12:00 30 03/11/18 12:00 72 13 140/44 (76) 100 03/11/18 11:09 64 16 30 03/11/18 11:00 69 16 129/40 (69) 100 03/11/18 11:00 64 15 127/39 (68) 100 03/11/18 10:00 98.1 69 16 129/40 (69) 100 03/11/18 09:23 64 03/11/18 09:00 64 16 118/39 (65) 100 03/11/18 08:34 67 16 30 03/11/18 08:00 67 18 129/50 (76) 100 03/11/18 08:00 30 03/11/18 08:00 Mechanical Ventilator 03/11/18 07:00 90 20 120/48 (72) 100 03/11/18 06:55 89 26 30 03/11/18 06:00 72 16 131/44 (73) 100 03/11/18 05:02 71 16 30 03/11/18 05:00 69 17 142/46 (78) 100 03/11/18 04:00 97.7 66 16 142/50 (80) 100 03/11/18 04:00 15.0 30 03/11/18 04:00 Mechanical Ventilator 03/11/18 03:11 72 16 30 03/11/18 03:07 68 03/11/18 03:00 69 16 131/42 (71) 100 03/11/18 02:00 66 16 132/51 (78) 100 03/11/18 01:01 69 16 30 03/11/18 01:00 66 16 117/39 (65) 100 03/11/18 00:00 15.0 30 03/11/18 00:00 Mechanical Ventilator 03/11/18 00:00 98.0 68 15 133/48 (76) 100 03/10/18 23:31 67 03/10/18 23:15 68 16 30 03/10/18 23:00 69 17 128/61 (83) 100 03/10/18 22:00 67 16 121/59 (79) 100 03/10/18 21:16 66 16 30 Intake and Output 03/10/18 03/11/18 19:00 07:00 Intake Total 883 ml 1015 ml Output Total 720 ml 750 ml Balance 163 ml 265 ml IV Total 883 ml 955 ml Other 60 ml Output Urine Total 360 ml 650 ml Gastric Drainage Total 360 ml 100 ml # Bowel Movements 3 3 Laboratory Tests 03/11/18 04:15: White Blood Count 14.5H, Red Blood Count 3.00L, Hemoglobin 8.2L, Hematocrit 25.1L, Mean Corpuscular Volume 84, Mean Corpuscular Hemoglobin 27.5, Mean Corpuscular Hemoglobin Concent 32.7, Red Cell Distribution Width 13.5, Platelet Count 129L, Mean Platelet Volume 9.4, Neutrophils (%) (Auto) 79.1H, Lymphocytes (%) (Auto) 9.5L, Monocytes (%) (Auto) 9.2, Eosinophils (%) (Auto) 1.9, Basophils (%) (Auto) 0.4, Sodium Level 146H, Potassium Level 2.9L, Chloride Level 116H, Carbon Dioxide Level 14L, Anion Gap 16H, Blood Urea Nitrogen 103H, Creatinine 3.8H, Estimat Glomerular Filtration Rate , Glucose Level 162H, Uric Acid 8.0H, Calcium Level 7.0L, Phosphorus Level 3.7, Magnesium Level 2.7H, Total Bilirubin 0.4, Aspartate Amino Transf (AST/SGOT) 18, Alanine Aminotransferase (ALT/SGPT) 39, Alkaline Phosphatase 95, Troponin I 0.112H, Pro- B-Type Natriuretic Peptide 7260H, Total Protein 5.2L, Albumin 1.8L, Globulin 3.4 , Albumin/Globulin Ratio 0.5L, Random Vancomycin Level 20.2 03/11/18 13:40: C-Reactive Protein, Quantitative 20.6H Height (Feet): 5 Height (Inches): 10.00 Weight (Pounds): 160 General Appearance: lethargic Neck: supple Cardiovascular: normal rate Respiratory/Chest: lungs clear Abdomen: soft Krzysztof Schneider MD Mar 11, 2018 21:09
[2018-03-12] VITALS (24 sets, daily range): BP systolic 138–185; BP diastolic 45–94
[2018-03-12] MEDS: Sodium Citrate 30ml NG SCH ×5 (00:14→23:43)
[2018-03-12] MEDS: Potassium Chloride 10 MEQ in D5 1/2NS 1,000 ML IV SCH ×3 (02:40→18:32)
[2018-03-12] MEDS: NovoLOG Insulin Flexpen SUBQ SCH ×4 (05:42→23:45)
[2018-03-12 06:04] LABS: BASOPHILS % (AUTO) 0.6 % (0.0-2.0); EOSINOPHILS % (AUTO) 2.9 % (0.0-3.0); HEMATOCRIT 25.6 % (37.0-47.0); HEMOGLOBIN 8.3 G/DL (12.0-16.0); LYMPHOCYTES % (AUTO) 13.1 % (20.0-45.0); MEAN CORPUSCULAR VOLUME 83 FL (80-99); NEUTROPHILS % (AUTO) 74.3 % (45.0-75.0); PLATELET COUNT 144 K/UL (150-450); RED BLOOD COUNT 3.08 M/UL (4.20-5.40); RED CELL DISTRIBUTION WIDTH 13.7 % (11.6-14.8)
[2018-03-12 06:57] LABS: ALANINE AMINOTRANSFERASE 36 U/L (12-78); ALBUMIN 2.1 G/DL (3.4-5.0); ALBUMIN/GLOBULIN RATIO 0.6 (1.0-2.7); ALKALINE PHOSPHATASE 100 U/L (46-116); ANION GAP 15 mmol/L (5-15); ASPARTATE AMINO TRANSFERASE 18 U/L (15-37); BILIRUBIN,TOTAL 0.3 MG/DL (0.2-1.0); BLOOD UREA NITROGEN 83 mg/dL (7-18); CALCIUM 7.1 MG/DL (8.5-10.1); CARBON DIOXIDE 14 MMOL/L (21-32); CHLORIDE 119 MMOL/L (98-107); CREATININE 3.3 MG/DL (0.55-1.30); PHOSPHORUS 2.8 MG/DL (2.5-4.9); SODIUM 148 MMOL/L (136-145)
[2018-03-12] MEDS ORDERED: Vancomycin 1.5 GM/D5W 250ML IVPB ONE (08:00)
[2018-03-12] MEDS: Pantoprazole Inj IVP SCH ×2 (08:19→20:29)
[2018-03-12] MEDS: levETIRAcetam 500mg/5ml Liquid GT SCH ×2 (08:20→20:30)
[2018-03-12] MEDS: Aspirin Baby 81mg NG SCH (08:20)
--- NOTE | 2018-03-12 09:52 | Pulmonolgy Critical Care Note ---
Critical Care - Asmt/Plan Problems: (1) group home resident (2) Anemia (3) PEG (percutaneous endoscopic gastrostomy) status (4) Seizure disorder (5) CKD (chronic kidney disease) (6) MARK (acute kidney injury) (7) Severe sepsis (8) UTI (urinary tract infection) (9) Respiratory failure (10) NSTEMI (non-ST elevated myocardial infarction) Assessment/Plan: ASSESSMENT: * SIRS/SEPSIS * Shock, likely septic * VDRF * MSOF * MARK on CKD * Abnormal LFT's * NSTEMI, likely demand ischemia * Mild PVC on CXR & elevated BNP but clinically appears dry * ? ADHF * Sz DO * NHR * Bedbound @ baseline * Anemia * S/P GT PLAN: * Continue SBT, likely extubation today * PRN HHN's * Off Ne * Monitor volumes and renal function * GT BICITRA per renal * MF/U renal recs * Trend ECG/trop * Vanco, Elías, Vica per DI * Start Vancomycin & Zosyn, F/U Cx's * Hold GTF's for possible extubation * Continue HEP SQ, F/U HIT Ab panel * Continue AED's * FC * CCT 60 Critical Care - Objective Last 24 Hour Vital Signs Date Time Temp Pulse Resp B/P (MAP) Pulse Ox O2 Delivery O2 Flow Rate FiO2 03/12/18 09:25 86 22 25 03/12/18 09:23 100 03/12/18 09:21 79 20 25 03/12/18 09:18 78 18 25 03/12/18 09:00 78 18 157/76 (103) 100 03/12/18 08:00 98.8 79 20 146/82 (103) 100 03/12/18 08:00 30 03/12/18 08:00 Mechanical Ventilator 03/12/18 07:29 80 20 30 03/12/18 07:00 84 21 151/89 (109) 100 03/12/18 06:00 82 21 138/58 (84) 100 03/12/18 05:01 84 20 30 03/12/18 05:00 81 19 149/80 (103) 100 03/12/18 04:00 81 03/12/18 04:00 30 03/12/18 04:00 97.8 81 20 148/85 (106) 100 03/12/18 04:00 Mechanical Ventilator 10/29/18 03:00 80 17 153/52 (85) 100 03/12/18 02:31 77 16 30 03/12/18 02:00 78 17 158/48 (84) 100 03/12/18 01:00 82 16 146/45 (78) 100 03/12/18 00:53 80 19 30 03/12/18 00:00 Mechanical Ventilator 03/12/18 00:00 83 21 141/59 (86) 100 03/11/18 23:28 82 22 30 03/11/18 23:00 80 19 117/39 (65) 100 03/11/18 22:00 79 15 147/52 (83) 100 03/11/18 21:14 81 24 30 03/11/18 21:00 80 16 151/81 (104) 100 03/11/18 20:34 153/85 03/11/18 20:00 30 03/11/18 20:00 Mechanical Ventilator 03/11/18 20:00 98.7 77 21 153/85 (107) 100 03/11/18 20:00 84 03/11/18 19:24 77 18 30 03/11/18 19:00 78 17 149/53 (85) 100 03/11/18 19:00 76 15 131/73 (92) 100 03/11/18 18:00 78 17 149/53 (85) 100 03/11/18 17:16 80 17 30 03/11/18 17:00 98.5 76 16 138/50 (79) 100 03/11/18 16:05 76 03/11/18 16:00 77 18 141/48 (79) 100 03/11/18 16:00 Mechanical Ventilator 03/11/18 16:00 30 03/11/18 15:04 80 18 30 03/11/18 15:00 73 18 131/48 (75) 100 03/11/18 14:00 77 20 131/70 (90) 100 03/11/18 13:08 113/39 03/11/18 13:00 98.5 63 16 113/39 (63) 100 03/11/18 12:52 73 17 30 03/11/18 12:16 68 03/11/18 12:00 Mechanical Ventilator 03/11/18 12:00 30 03/11/18 12:00 72 13 140/44 (76) 100 03/11/18 11:09 64 16 30 03/11/18 11:00 69 16 129/40 (69) 100 03/11/18 11:00 64 15 127/39 (68) 100 03/11/18 10:00 98.1 69 16 129/40 (69) 100 Status: awake, other - intubated Condition: improving HEENT: atraumatic, normocephalic Neck: other - Supple no JVD Lungs: clear Heart: HR/BP stable Abdomen: soft, non-tender, active bowel sounds, feeding tube - GT Extremities: no C/C/E, other - contractures Decubiti: location - sacral, stage - 4 Accucheck: 211 Critical Care - Subjective ROS Limited/Unobtainable: Yes ICU Day: 5 Intubation Day: 5 Interval Events: Jessica SBT Diarrhea No secretions IV Access: central - R FEM CVC EKG Rhythm: Sinus Rhythm FI02: 25 Vent Support Breath Rate: 16 Vent Support Mode: CPAP Vent Tidal Volume: 550 Sputum Amount: None PEEP: 5.0 PIP: 14 Fluids: [id number] @ 75 Drips: Off Tube Feeding Amount: 30 I&O: Intake and Output 03/11/18 03/12/18 19:00 07:00 Intake Total 1308 ml 1200 ml Output Total 1390 ml 720 ml Balance -82 ml 480 ml Intake Free Water 30 ml 60 ml IV Total 1083 ml 750 ml Tube Feeding 95 ml 360 ml Other 100 ml 30 ml Output Urine Total 1290 ml 720 ml Gastric Drainage Total 100 ml # Bowel Movements 1 6 Subjective: KARRIE ET-Tube: 7.5 ET Position: 23 Labs: Laboratory Tests Test 03/11/18 13:40 03/12/18 04:00 03/12/18 08:15 C-Reactive Protein, Quantitative 20.6 mg/dL (0.00-0.90) H White Blood Count 12.0 K/UL (4.8-10.8) H Red Blood Count 3.08 M/UL (4.20-5.40) L Hemoglobin 8.3 G/DL (12.0-16.0) L Hematocrit 25.6 % (37.0-47.0) L Mean Corpuscular Volume 83 FL (80-99) Mean Corpuscular Hemoglobin 27.0 PG (27.0-31.0) Mean Corpuscular Hemoglobin Concent 32.4 G/DL (32.0-36.0) Red Cell Distribution Width 13.7 % (11.6-14.8) Platelet Count 144 K/UL (150-450) L Mean Platelet Volume 9.8 FL (6.5-10.1) Neutrophils (%) (Auto) 74.3 % (45.0-75.0) Lymphocytes (%) (Auto) 13.1 % (20.0-45.0) L Monocytes (%) (Auto) 9.0 % (1.0-10.0) Eosinophils (%) (Auto) 2.9 % (0.0-3.0) Basophils (%) (Auto) 0.6 % (0.0-2.0) Sodium Level 148 MMOL/L (136-145) H Potassium Level 3.0 MMOL/L (3.5-5.1) L Chloride Level 119 MMOL/L (98-107) H Carbon Dioxide Level 14 MMOL/L (21-32) L Anion Gap 15 mmol/L (5-15) Blood Urea Nitrogen 83 mg/dL (7-18) H Creatinine 3.3 MG/DL (0.55-1.30) H Estimat Glomerular Filtration Rate mL/min (>60) Glucose Level 177 MG/DL (74-106) H Uric Acid 7.7 MG/DL (2.6-7.2) H Calcium Level 7.1 MG/DL (8.5-10.1) L Phosphorus Level 2.8 MG/DL (2.5-4.9) Magnesium Level 2.3 MG/DL (1.8-2.4) Total Bilirubin 0.3 MG/DL (0.2-1.0) Aspartate Amino Transf (AST/SGOT) 18 U/L (15-37) Alanine Aminotransferase (ALT/SGPT) 36 U/L (12-78) Alkaline Phosphatase 100 U/L (46-116) Troponin I 0.055 ng/mL (0.000-0.056) Pro-B-Type Natriuretic Peptide 7499 pg/mL (0-125) H Total Protein 5.4 G/DL (6.4-8.2) L Albumin 2.1 G/DL (3.4-5.0) L Globulin 3.3 g/dL Albumin/Globulin Ratio 0.6 (1.0-2.7) L Random Vancomycin Level 18.0 ug/mL Heparin-PF4 Antibody Screen Pending Arterial Blood pH 7.418 (7.350-7.450) Arterial Blood Partial Pressure CO2 20.8 mmHg (35.0-45.0) *L Arterial Blood Partial Pressure O2 133.2 mmHg (75.0-100.0) H Arterial Blood HCO3 13.1 mmol/L (22.0-26.0) *L Arterial Blood Oxygen Saturation 97.6 % (95-100) Arterial Blood Base Excess -9.9 (-2-2) *L Michael Test Positive Javon Gan MD Mar 12, 2018 09:52
--- NOTE | 2018-03-12 10:22 | General Progress Note ---
Assessment/Plan Status: unchanged Assessment/Plan # Anemia of chronic disease -- baseline appears to be 11-12 reviewed labs from 2012 --> at this time decreased, anemia panel has been decreased --> transfuse as needed, hgb goal >7 --> no evidence of hemolysis noted --> Blood tx: 03/10, # Leukocytosis likely related to septic shock --> Remains elevated --> on abx and ivf --> appreciate ID recs and workup # Thrombocytopenia likely related to infection, appears baseline 100-150k --> imaging has been reviewed --> medications have been reviewed --> hepatitis panel reviewed from before # Abnormal LFTs --> Currently has normalized. --> likely shock liver from overt sepsis. --> trend labs # Decubitus ulcer of sacral region, unstageable, 5cm x 4cm unstagable sacral decubitus ulcer, no drainage, mild periedge edema/erythema, soft, no odor present upon admission. will be cared for during hospital sta # Severe sepsis --> on abx as per ID # Respiratory failure. Intubated. --> as per pulm Greatly appreciate consultation! Subjective Date patient seen: Mar 12, 2018 ROS Limited/Unobtainable: Yes Hematologic/Lymphatic: Reports: anemia Allergies: Coded Allergies: PENICILLINS (Unverified Allergy, Mild, 12/04/12) Subjective Pt remains in ICU. Remains intubated. H/H stable. Objective Last 24 Hour Vital Signs Date Time Temp Pulse Resp B/P (MAP) Pulse Ox O2 Delivery O2 Flow Rate FiO2 03/12/18 09:25 86 22 25 03/12/18 09:23 100 03/12/18 09:21 79 20 25 03/12/18 09:18 78 18 25 03/12/18 09:00 78 18 157/76 (103) 100 03/12/18 08:00 98.8 79 20 146/82 (103) 100 03/12/18 08:00 30 03/12/18 08:00 Mechanical Ventilator 03/12/18 07:29 80 20 30 03/12/18 07:00 84 21 151/89 (109) 100 03/12/18 06:00 82 21 138/58 (84) 100 03/12/18 05:01 84 20 30 03/12/18 05:00 81 19 149/80 (103) 100 03/12/18 04:00 81 03/12/18 04:00 30 03/12/18 04:00 97.8 81 20 148/85 (106) 100 03/12/18 04:00 Mechanical Ventilator 03/12/18 03:00 80 17 153/52 (85) 100 03/12/18 02:31 77 16 30 03/12/18 02:00 78 17 158/48 (84) 100 03/12/18 01:00 82 16 146/45 (78) 100 03/12/18 00:53 80 19 30 03/12/18 00:00 Mechanical Ventilator 03/12/18 00:00 83 21 141/59 (86) 100 03/11/18 23:28 82 22 30 03/11/18 23:00 80 19 117/39 (65) 100 03/11/18 22:00 79 15 147/52 (83) 100 03/11/18 21:14 81 24 30 03/11/18 21:00 80 16 151/81 (104) 100 03/11/18 20:34 153/85 03/11/18 20:00 30 03/11/18 20:00 Mechanical Ventilator 03/11/18 20:00 98.7 77 21 153/85 (107) 100 03/11/18 20:00 84 03/11/18 19:24 77 18 30 03/11/18 19:00 78 17 149/53 (85) 100 03/11/18 19:00 76 15 131/73 (92) 100 03/11/18 18:00 78 17 149/53 (85) 100 03/11/18 17:16 80 17 30 03/11/18 17:00 98.5 76 16 138/50 (79) 100 03/11/18 16:05 76 03/11/18 16:00 77 18 141/48 (79) 100 03/11/18 16:00 Mechanical Ventilator 03/11/18 16:00 30 03/11/18 15:04 80 18 30 03/11/18 15:00 73 18 131/48 (75) 100 03/11/18 14:00 77 20 131/70 (90) 100 03/11/18 13:08 113/39 03/11/18 13:00 98.5 63 16 113/39 (63) 100 03/11/18 12:52 73 17 30 03/11/18 12:16 68 03/11/18 12:00 Mechanical Ventilator 03/11/18 12:00 30 03/11/18 12:00 72 13 140/44 (76) 100 03/11/18 11:09 64 16 30 03/11/18 11:00 69 16 129/40 (69) 100 03/11/18 11:00 64 15 127/39 (68) 100 Intake and Output 03/11/18 03/12/18 19:00 07:00 Intake Total 1308 ml 1275 ml Output Total 1390 ml 720 ml Balance -82 ml 555 ml Intake Free Water 30 ml 60 ml IV Total 1083 ml 825 ml Tube Feeding 95 ml 360 ml Other 100 ml 30 ml Output Urine Total 1290 ml 720 ml Gastric Drainage Total 100 ml # Bowel Movements 1 6 Laboratory Tests 03/11/18 13:40: C-Reactive Protein, Quantitative 20.6H 03/12/18 04:00: White Blood Count 12.0H, Red Blood Count 3.08L, Hemoglobin 8.3L, Hematocrit 25.6L, Mean Corpuscular Volume 83, Mean Corpuscular Hemoglobin 27.0, Mean Corpuscular Hemoglobin Concent 32.4, Red Cell Distribution Width 13.7, Platelet Count 144L, Mean Platelet Volume 9.8, Neutrophils (%) (Auto) 74.3, Lymphocytes ( %) (Auto) 13.1L, Monocytes (%) (Auto) 9.0, Eosinophils (%) (Auto) 2.9, Basophils (%) (Auto) 0.6, Sodium Level 148H, Potassium Level 3.0L, Chloride Level 119H, Carbon Dioxide Level 14L, Anion Gap 15, Blood Urea Nitrogen 83H, Creatinine 3.3H, Estimat Glomerular Filtration Rate , Glucose Level 177H, Uric Acid 7.7H, Calcium Level 7.1L, Phosphorus Level 2.8, Magnesium Level 2.3, Total Bilirubin 0.3, Aspartate Amino Transf (AST/SGOT) 18, Alanine Aminotransferase ( ALT/SGPT) 36, Alkaline Phosphatase 100, Troponin I 0.055, Pro-B-Type Natriuretic Peptide 7499H, Total Protein 5.4L, Albumin 2.1L, Globulin 3.3, Albumin/Globulin Ratio 0.6L, Random Vancomycin Level 18.0, Heparin-PF4 Antibody Screen [Pending] 03/12/18 08:15: Arterial Blood pH 7.418, Arterial Blood Partial Pressure CO2 20.8*L, Arterial Blood Partial Pressure O2 133.2H, Arterial Blood HCO3 13.1*L, Arterial Blood Oxygen Saturation 97.6, Arterial Blood Base Excess -9.9*L, Michael Test Positive Height (Feet): 5 Height (Inches): 10.00 Weight (Pounds): 165 General Appearance: no apparent distress EENT: PERRL/EOMI Neck: normal alignment Cardiovascular: normal peripheral pulses Respiratory/Chest: no respiratory distress Abdomen: normal bowel sounds Aleksandr Kern MD Mar 12, 2018 10:22
[2018-03-12] MEDS: Meropenem 500 MG in NS 55 ML IVPB SCH ×2 (11:00→22:22)
[2018-03-12] MEDS: Micafungin 100 MG in NS 110 ML IVPB SCH (11:00)
--- NOTE | 2018-03-12 11:04 | Nephrology Progress Note ---
Assessment/Plan Problem List: (1) MARK (acute kidney injury) (2) CKD (chronic kidney disease) (3) Sepsis (4) Respiratory failure (5) Shock (6) Anemia Assessment acute on chronic renal failure: Oliguric ATN Hypotension? due to sepsis: Shock Acute respiratory failure PEG DM Shock liver Sever HypoAlbuminemia Plan 2D echo Ej Fx 55 % monitor Vanco levels Albumin bolus start Norvasc stool C dif change IV fluids- start Bicitra GT pulm support urine studies avoid Nephrotoxics Monitor renal parameters Transfuse I unit PADMA: Cholelithiasis. 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, consistent with angiomyolipoma no Dunbar Subjective ROS Limited/Unobtainable: Yes Objective Objective Last 24 Hour Vital Signs Date Time Temp Pulse Resp B/P (MAP) Pulse Ox O2 Delivery O2 Flow Rate FiO2 03/12/18 10:44 85 26 25 03/12/18 10:00 83 28 170/70 (103) 100 03/12/18 09:25 86 22 25 03/12/18 09:23 100 03/12/18 09:21 79 20 25 03/12/18 09:18 78 18 25 03/12/18 09:00 78 18 157/76 (103) 100 03/12/18 08:00 98.8 79 20 146/82 (103) 100 03/12/18 08:00 30 03/12/18 08:00 Mechanical Ventilator 03/12/18 08:00 88 03/12/18 07:29 80 20 30 03/12/18 07:00 84 21 151/89 (109) 100 03/12/18 06:00 82 21 138/58 (84) 100 03/12/18 05:01 84 20 30 03/12/18 05:00 81 19 149/80 (103) 100 03/12/18 04:00 81 03/12/18 04:00 30 03/12/18 04:00 97.8 81 20 148/85 (106) 100 03/12/18 04:00 Mechanical Ventilator 03/12/18 03:00 80 17 153/52 (85) 100 03/12/18 02:31 77 16 30 03/12/18 02:00 78 17 158/48 (84) 100 03/12/18 01:00 82 16 146/45 (78) 100 03/12/18 00:53 80 19 30 03/12/18 00:00 Mechanical Ventilator 03/12/18 00:00 83 21 141/59 (86) 100 03/11/18 23:28 82 22 30 03/11/18 23:00 80 19 117/39 (65) 100 03/11/18 22:00 79 15 147/52 (83) 100 03/11/18 21:14 81 24 30 03/11/18 21:00 80 16 151/81 (104) 100 03/11/18 20:34 153/85 03/11/18 20:00 30 03/11/18 20:00 Mechanical Ventilator 03/11/18 20:00 98.7 77 21 153/85 (107) 100 03/11/18 20:00 84 03/11/18 19:24 77 18 30 03/11/18 19:00 78 17 149/53 (85) 100 03/11/18 19:00 76 15 131/73 (92) 100 03/11/18 18:00 78 17 149/53 (85) 100 03/11/18 17:16 80 17 30 03/11/18 17:00 98.5 76 16 138/50 (79) 100 03/11/18 16:05 76 03/11/18 16:00 77 18 141/48 (79) 100 03/11/18 16:00 Mechanical Ventilator 03/11/18 16:00 30 03/11/18 15:04 80 18 30 03/11/18 15:00 73 18 131/48 (75) 100 03/11/18 14:00 77 20 131/70 (90) 100 03/11/18 13:08 113/39 03/11/18 13:00 98.5 63 16 113/39 (63) 100 03/11/18 12:52 73 17 30 03/11/18 12:16 68 03/11/18 12:00 Mechanical Ventilator 03/11/18 12:00 30 03/11/18 12:00 72 13 140/44 (76) 100 03/11/18 11:09 64 16 30 Intake and Output 03/11/18 03/12/18 19:00 07:00 Intake Total 1308 ml 1275 ml Output Total 1390 ml 720 ml Balance -82 ml 555 ml Intake Free Water 30 ml 60 ml IV Total 1083 ml 825 ml Tube Feeding 95 ml 360 ml Other 100 ml 30 ml Output Urine Total 1290 ml 720 ml Gastric Drainage Total 100 ml # Bowel Movements 1 6 Laboratory Tests 03/11/18 13:40: C-Reactive Protein, Quantitative 20.6H 03/12/18 04:00: White Blood Count 12.0H, Red Blood Count 3.08L, Hemoglobin 8.3L, Hematocrit 25.6L, Mean Corpuscular Volume 83, Mean Corpuscular Hemoglobin 27.0, Mean Corpuscular Hemoglobin Concent 32.4, Red Cell Distribution Width 13.7, Platelet Count 144L, Mean Platelet Volume 9.8, Neutrophils (%) (Auto) 74.3, Lymphocytes ( %) (Auto) 13.1L, Monocytes (%) (Auto) 9.0, Eosinophils (%) (Auto) 2.9, Basophils (%) (Auto) 0.6, Sodium Level 148H, Potassium Level 3.0L, Chloride Level 119H, Carbon Dioxide Level 14L, Anion Gap 15, Blood Urea Nitrogen 83H, Creatinine 3.3H, Estimat Glomerular Filtration Rate , Glucose Level 177H, Uric Acid 7.7H, Calcium Level 7.1L, Phosphorus Level 2.8, Magnesium Level 2.3, Total Bilirubin 0.3, Aspartate Amino Transf (AST/SGOT) 18, Alanine Aminotransferase ( ALT/SGPT) 36, Alkaline Phosphatase 100, Troponin I 0.055, Pro-B-Type Natriuretic Peptide 7499H, Total Protein 5.4L, Albumin 2.1L, Globulin 3.3, Albumin/Globulin Ratio 0.6L, Random Vancomycin Level 18.0, Heparin-PF4 Antibody Screen [Pending] 03/12/18 08:15: Arterial Blood pH 7.418, Arterial Blood Partial Pressure CO2 20.8*L, Arterial Blood Partial Pressure O2 133.2H, Arterial Blood HCO3 13.1*L, Arterial Blood Oxygen Saturation 97.6, Arterial Blood Base Excess -9.9*L, Michael Test Positive Height (Feet): 5 Height (Inches): 10.00 Weight (Pounds): 165 General Appearance: no apparent distress Cardiovascular: normal rate Respiratory/Chest: decreased breath sounds Abdomen: distended Objective no change Phil Ortiz MD Mar 12, 2018 11:04
[2018-03-12] MEDS: Nitroglycerin Patch 0.4mg TDERMAL SCH (12:04)
--- NOTE | 2018-03-12 12:19 | Infectious Diseases Prog Note ---
Assessment/Plan Assessment/Plan A; Septic shock Fungal sepsis UTI with MRSA & Citrobacter Acute respiratory failure Acute renal failure Chronic kidney disease Elevated transaminase Dementia P; Continue Zosyn, Micafungin & Vancomycin with F/U cultures Peripheral line placement & removal of central line Send line tip for culture Case was D/W RN Subjective ROS Limited/Unobtainable: Yes Allergies: Coded Allergies: PENICILLINS (Unverified Allergy, Mild, 12/04/12) Objective Vital Signs Last 24 Hour Vital Signs Date Time Temp Pulse Resp B/P (MAP) Pulse Ox O2 Delivery O2 Flow Rate FiO2 03/12/18 12:04 185/63 03/12/18 11:45 83 169/81 03/12/18 11:05 91 30 25 03/12/18 11:00 86 24 169/81 (110) 100 03/12/18 10:44 85 26 25 03/12/18 10:00 83 28 170/70 (103) 100 03/12/18 09:25 86 22 25 03/12/18 09:23 100 03/12/18 09:21 79 20 25 03/12/18 09:18 78 18 25 03/12/18 09:00 78 18 157/76 (103) 100 03/12/18 08:00 98.8 79 20 146/82 (103) 100 03/12/18 08:00 30 03/12/18 08:00 Mechanical Ventilator 03/12/18 08:00 88 03/12/18 07:29 80 20 30 03/12/18 07:00 84 21 151/89 (109) 100 03/12/18 06:00 82 21 138/58 (84) 100 03/12/18 05:01 84 20 30 03/12/18 05:00 81 19 149/80 (103) 100 03/12/18 04:00 81 03/12/18 04:00 30 03/12/18 04:00 97.8 81 20 148/85 (106) 100 03/12/18 04:00 Mechanical Ventilator 03/12/18 03:00 80 17 153/52 (85) 100 03/12/18 02:31 77 16 30 03/12/18 02:00 78 17 158/48 (84) 100 03/12/18 01:00 82 16 146/45 (78) 100 03/12/18 00:53 80 19 30 03/12/18 00:00 Mechanical Ventilator 03/12/18 00:00 83 21 141/59 (86) 100 03/11/18 23:28 82 22 30 03/11/18 23:00 80 19 117/39 (65) 100 03/11/18 22:00 79 15 147/52 (83) 100 03/11/18 21:14 81 24 30 03/11/18 21:00 80 16 151/81 (104) 100 03/11/18 20:34 153/85 03/11/18 20:00 30 03/11/18 20:00 Mechanical Ventilator 03/11/18 20:00 98.7 77 21 153/85 (107) 100 03/11/18 20:00 84 03/11/18 19:24 77 18 30 03/11/18 19:00 78 17 149/53 (85) 100 03/11/18 19:00 76 15 131/73 (92) 100 03/11/18 18:00 78 17 149/53 (85) 100 03/11/18 17:16 80 17 30 03/11/18 17:00 98.5 76 16 138/50 (79) 100 03/11/18 16:05 76 03/11/18 16:00 77 18 141/48 (79) 100 03/11/18 16:00 Mechanical Ventilator 03/11/18 16:00 30 03/11/18 15:04 80 18 30 03/11/18 15:00 73 18 131/48 (75) 100 03/11/18 14:00 77 20 131/70 (90) 100 03/11/18 13:08 113/39 03/11/18 13:00 98.5 63 16 113/39 (63) 100 03/11/18 12:52 73 17 30 Height (Feet): 5 Height (Inches): 10.00 Weight (Pounds): 165 HEENT: other - orally intubated Respiratory/Chest: lungs clear, other - on ventilator Cardiovascular: normal rate, other - femoral line Abdomen: soft, non tender, other - GT feeding Extremities: no edema Neurologic/Psychiatric: unresponsiveness Laboratory Tests Test 03/11/18 13:40 03/12/18 04:00 03/12/18 08:15 C-Reactive Protein, Quantitative 20.6 mg/dL (0.00-0.90) H White Blood Count 12.0 K/UL (4.8-10.8) H Red Blood Count 3.08 M/UL (4.20-5.40) L Hemoglobin 8.3 G/DL (12.0-16.0) L Hematocrit 25.6 % (37.0-47.0) L Mean Corpuscular Volume 83 FL (80-99) Mean Corpuscular Hemoglobin 27.0 PG (27.0-31.0) Mean Corpuscular Hemoglobin Concent 32.4 G/DL (32.0-36.0) Red Cell Distribution Width 13.7 % (11.6-14.8) Platelet Count 144 K/UL (150-450) L Mean Platelet Volume 9.8 FL (6.5-10.1) Neutrophils (%) (Auto) 74.3 % (45.0-75.0) Lymphocytes (%) (Auto) 13.1 % (20.0-45.0) L Monocytes (%) (Auto) 9.0 % (1.0-10.0) Eosinophils (%) (Auto) 2.9 % (0.0-3.0) Basophils (%) (Auto) 0.6 % (0.0-2.0) Sodium Level 148 MMOL/L (136-145) H Potassium Level 3.0 MMOL/L (3.5-5.1) L Chloride Level 119 MMOL/L (98-107) H Carbon Dioxide Level 14 MMOL/L (21-32) L Anion Gap 15 mmol/L (5-15) Blood Urea Nitrogen 83 mg/dL (7-18) H Creatinine 3.3 MG/DL (0.55-1.30) H Estimat Glomerular Filtration Rate mL/min (>60) Glucose Level 177 MG/DL (74-106) H Uric Acid 7.7 MG/DL (2.6-7.2) H Calcium Level 7.1 MG/DL (8.5-10.1) L Phosphorus Level 2.8 MG/DL (2.5-4.9) Magnesium Level 2.3 MG/DL (1.8-2.4) Total Bilirubin 0.3 MG/DL (0.2-1.0) Aspartate Amino Transf (AST/SGOT) 18 U/L (15-37) Alanine Aminotransferase (ALT/SGPT) 36 U/L (12-78) Alkaline Phosphatase 100 U/L (46-116) Troponin I 0.055 ng/mL (0.000-0.056) Pro-B-Type Natriuretic Peptide 7499 pg/mL (0-125) H Total Protein 5.4 G/DL (6.4-8.2) L Albumin 2.1 G/DL (3.4-5.0) L Globulin 3.3 g/dL Albumin/Globulin Ratio 0.6 (1.0-2.7) L Random Vancomycin Level 18.0 ug/mL Heparin-PF4 Antibody Screen Pending Arterial Blood pH 7.418 (7.350-7.450) Arterial Blood Partial Pressure CO2 20.8 mmHg (35.0-45.0) *L Arterial Blood Partial Pressure O2 133.2 mmHg (75.0-100.0) H Arterial Blood HCO3 13.1 mmol/L (22.0-26.0) *L Arterial Blood Oxygen Saturation 97.6 % (95-100) Arterial Blood Base Excess -9.9 (-2-2) *L Michael Test Positive Current Medications Medications (Trade) Dose Ordered Sig/Gelacio Route PRN Reason Start Time Stop Time Status Last Admin Dose Admin Acetaminophen (Tylenol) 650 mg Q6H PRN GT FEVER 03/08/18 15:15 04/07/18 15:14 03/10/18 14:55 Albuterol/ Ipratropium (Albuterol/ Ipratropium) 3 ml Q4H PRN HHN Shortness of Breath 03/08/18 15:15 03/13/18 15:14 Amlodipine Besylate (Norvasc) 5 mg DAILY GT 03/13/18 09:00 04/12/18 08:59 Aspirin (ASA) 81 mg DAILY NG 03/09/18 09:00 04/08/18 08:59 03/12/18 08:20 Chlorhexidine Gluconate (Xiomara-Hex 2%) 1 applic DAILY@1999 TOPIC 03/08/18 22:30 04/08/18 22:29 03/11/18 21:02 Dextrose (Dextrose 50%) 25 ml Q30M PRN IV Hypoglycemia 03/08/18 15:15 04/07/18 15:14 Dextrose (Dextrose 50%) 50 ml Q30M PRN IV Hypoglycemia 03/08/18 15:15 04/07/18 15:14 Heparin Sodium (Porcine) (Heparin 5000 units/ml) 5,000 units EVERY 12 HOURS SUBQ 03/08/18 21:00 04/07/18 20:59 03/11/18 21:26 Insulin Aspart (NovoLOG) Q6HR SUBQ 03/12/18 12:00 04/11/18 11:59 03/12/18 12:06 Levetiracetam (Keppra) 750 mg Q12HR GT 03/08/18 21:00 04/07/18 20:59 03/12/18 08:20 Meropenem 500 mg/ Sodium Chloride 55 ml @ 110 mls/hr Q12H IVPB 03/10/18 10:00 03/15/18 09:59 03/12/18 11:00 Micafungin Sodium 100 mg/Sodium Chloride 110 ml @ 110 mls/hr Q24H IVPB 03/11/18 10:00 03/18/18 09:59 03/12/18 11:00 Nitroglycerin (Ntg) 1 patch Q24H TDERMAL 03/11/18 13:00 04/10/18 12:59 03/12/18 12:04 Norepinephrine Bitartrate 4 mg/ Dextrose 250 ml @ 0 mls/hr Q24H IV 03/08/18 20:34 04/07/18 20:33 03/09/18 12:53 Ondansetron HCl (Zofran) 4 mg Q6H PRN IVP Nausea & Vomiting 03/08/18 15:15 04/07/18 15:14 Pantoprazole (Protonix) 40 mg EVERY 12 HOURS IVP 03/08/18 21:00 04/07/18 20:59 03/12/18 08:19 Potassium Chloride 10 meq/ Dextrose/Sodium Chloride 1,005 ml @ 100 mls/hr Q10H3M IV 03/12/18 11:00 04/10/18 10:59 03/12/18 11:55 Potassium Chloride 100 ml @ 100 mls/hr Q1HR IVPB 03/12/18 10:00 03/12/18 13:59 03/12/18 11:43 Quetiapine Fumarate (SEROquel) 12.5 mg Q4H PRN ORAL agitation 03/09/18 19:45 04/08/18 19:44 03/11/18 21:02 Sodium Citrate (Bicitra) 30 ml EVERY 6 HOURS NG 03/11/18 12:45 04/10/18 12:44 03/12/18 11:43 Vancomycin HCl (Vanco rx to dose) 1 ea DAILY PRN MISC Per rx protocol 03/11/18 14:00 04/10/18 13:59 Wilder French MD Mar 12, 2018 12:19
--- NOTE | 2018-03-12 12:19 | Diagnostic Imaging Report ---
APPROVED REPORT CPT Code: 15708 Present Symptoms Shortness of breath BILATERAL: Imaging reveals a patent deep venous system bilaterally. There is no evidence of thrombus within the femoral, popliteal or tibial segments. The greater saphenous veins are also within normal limits. Doppler indicates normal spontaneous flow within these segments.
[2018-03-12] MEDS ORDERED: Tubing IV Secondary IV ONE ×4 (14:47→15:08)
[2018-03-12] MEDS ORDERED: NS 275ml ONE (14:47)
[2018-03-12] MEDS ORDERED: D5NS 1000ml IV ONE (14:50)
[2018-03-12] MEDS ORDERED: Sterile Water For Inj 1000ml IV ONE (14:55)
[2018-03-12] MEDS ORDERED: Dyna-Hex 2% Top Sol 2oz TOPIC SCH (20:00)
--- NOTE | 2018-03-12 20:20 | General Progress Note ---
Assessment/Plan Problem List: (1) CKD (chronic kidney disease) ICD Codes: N18.9 - Chronic kidney disease, unspecified SNOMED: 060215369 (2) MARK (acute kidney injury) ICD Codes: N17.9 - Acute kidney failure, unspecified SNOMED: 28041963 (3) Sepsis ICD Codes: A41.9 - Sepsis, unspecified organism SNOMED: 76211479 (4) Abnormal LFTs ICD Codes: R94.5 - Abnormal results of liver function studies SNOMED: 048762068 (5) Decubitus ulcer of sacral region, unstageable ICD Codes: L89.150 - Pressure ulcer of sacral region, unstageable SNOMED: 674307999, 460830454 (6) Hyperglycemia ICD Codes: R73.9 - Hyperglycemia, unspecified; N18.9 - Chronic kidney disease, unspecified SNOMED: 45992601 (7) Metabolic acidosis ICD Codes: E87.2 - Acidosis; N18.9 - Chronic kidney disease, unspecified SNOMED: 65511228 (8) Renal failure (ARF), acute on chronic ICD Codes: N17.9 - Acute kidney failure, unspecified; N18.9 - Chronic kidney disease, unspecified SNOMED: 554566618 Qualifiers: Qualified Codes: N17.9 - Acute kidney failure, unspecified; N18.4 - Chronic kidney disease, stage 4 (severe) (9) Anemia ICD Codes: D64.9 - Anemia, unspecified SNOMED: 044479899 Qualifiers: Qualified Codes: D64.9 - Anemia, unspecified (10) Respiratory failure ICD Codes: J96.90 - Respiratory failure, unspecified, unspecified whether with hypoxia or hypercapnia SNOMED: 319849352 Qualifiers: Qualified Codes: J96.00 - Acute respiratory failure, unspecified whether with hypoxia or hypercapnia (11) UTI (urinary tract infection) ICD Codes: N39.0 - Urinary tract infection, site not specified SNOMED: 19760238 Qualifiers: Qualified Codes: T83.511A - Infection and inflammatory reaction due to indwelling urethral catheter, initial encounter; N39.0 - Urinary tract infection , site not specified (12) NSTEMI (non-ST elevated myocardial infarction) ICD Codes: I21.4 - Non-ST elevation (NSTEMI) myocardial infarction SNOMED: 567063721 (13) Severe sepsis ICD Codes: A41.9 - Sepsis, unspecified organism; R65.20 - Severe sepsis without septic shock SNOMED: 16434294 (14) Encephalopathy due to metabolic factor or toxin SNOMED: 866178248 Status: progressing Assessment/Plan respirator failure intubated sepsis pna azotemia hypokalemia is improving treatment per renal poor prognosis check lytes ARF Subjective ROS Limited/Unobtainable: Yes Allergies: Coded Allergies: PENICILLINS (Unverified Allergy, Mild, 12/04/12) Objective Last 24 Hour Vital Signs Date Time Temp Pulse Resp B/P (MAP) Pulse Ox O2 Delivery O2 Flow Rate FiO2 03/12/18 18:59 85 22 30 03/12/18 18:00 85 21 159/92 (114) 100 03/12/18 17:07 81 20 25 03/12/18 17:00 82 22 175/68 (103) 100 03/12/18 16:00 82 22 153/87 (109) 100 03/12/18 16:00 83 03/12/18 16:00 Mechanical Ventilator 03/12/18 16:00 30 03/12/18 15:15 82 19 25 03/12/18 15:00 93 29 143/68 (93) 100 03/12/18 14:00 85 23 152/91 (111) 100 03/12/18 13:05 82 24 25 03/12/18 13:00 98.7 84 23 156/94 (114) 100 03/12/18 12:04 185/63 03/12/18 12:00 84 03/12/18 12:00 85 22 185/63 (103) 100 03/12/18 12:00 30 03/12/18 12:00 Mechanical Ventilator 03/12/18 11:45 83 169/81 03/12/18 11:05 91 30 25 03/12/18 11:00 86 24 169/81 (110) 100 03/12/18 11:00 30 03/12/18 10:44 85 26 25 03/12/18 10:00 83 28 170/70 (103) 100 03/12/18 09:25 86 22 25 03/12/18 09:25 30 03/12/18 09:23 100 03/12/18 09:21 79 20 25 03/12/18 09:18 78 18 25 03/12/18 09:00 78 18 157/76 (103) 100 03/12/18 08:00 98.8 79 20 146/82 (103) 100 03/12/18 08:00 30 03/12/18 08:00 Mechanical Ventilator 03/12/18 08:00 88 03/12/18 07:29 80 20 30 03/12/18 07:00 84 21 151/89 (109) 100 03/12/18 06:00 82 21 138/58 (84) 100 03/12/18 05:01 84 20 30 03/12/18 05:00 81 19 149/80 (103) 100 03/12/18 04:00 81 03/12/18 04:00 30 03/12/18 04:00 97.8 81 20 148/85 (106) 100 03/12/18 04:00 Mechanical Ventilator 03/12/18 03:00 80 17 153/52 (85) 100 03/12/18 02:31 77 16 30 03/12/18 02:00 78 17 158/48 (84) 100 03/12/18 01:00 82 16 146/45 (78) 100 03/12/18 00:53 80 19 30 03/12/18 00:00 Mechanical Ventilator 03/12/18 00:00 83 21 141/59 (86) 100 03/11/18 23:28 82 22 30 03/11/18 23:00 80 19 117/39 (65) 100 03/11/18 22:00 79 15 147/52 (83) 100 03/11/18 21:14 81 24 30 03/11/18 21:00 80 16 151/81 (104) 100 03/11/18 20:34 153/85 Intake and Output 03/11/18 03/12/18 18:59 06:59 Intake Total 1363 ml 1130 ml Output Total 1360 ml 700 ml Balance 3 ml 430 ml Intake Free Water 30 ml 30 ml IV Total 1158 ml 750 ml Tube Feeding 75 ml 350 ml Other 100 ml Output Urine Total 1260 ml 700 ml Gastric Drainage Total 100 ml # Bowel Movements 1 6 Laboratory Tests 03/12/18 04:00: White Blood Count 12.0H, Red Blood Count 3.08L, Hemoglobin 8.3L, Hematocrit 25.6L, Mean Corpuscular Volume 83, Mean Corpuscular Hemoglobin 27.0, Mean Corpuscular Hemoglobin Concent 32.4, Red Cell Distribution Width 13.7, Platelet Count 144L, Mean Platelet Volume 9.8, Neutrophils (%) (Auto) 74.3, Lymphocytes ( %) (Auto) 13.1L, Monocytes (%) (Auto) 9.0, Eosinophils (%) (Auto) 2.9, Basophils (%) (Auto) 0.6, Sodium Level 148H, Potassium Level 3.0L, Chloride Level 119H, Carbon Dioxide Level 14L, Anion Gap 15, Blood Urea Nitrogen 83H, Creatinine 3.3H, Estimat Glomerular Filtration Rate , Glucose Level 177H, Uric Acid 7.7H, Calcium Level 7.1L, Phosphorus Level 2.8, Magnesium Level 2.3, Total Bilirubin 0.3, Aspartate Amino Transf (AST/SGOT) 18, Alanine Aminotransferase ( ALT/SGPT) 36, Alkaline Phosphatase 100, Troponin I 0.055, Pro-B-Type Natriuretic Peptide 7499H, Total Protein 5.4L, Albumin 2.1L, Globulin 3.3, Albumin/Globulin Ratio 0.6L, Random Vancomycin Level 18.0, Heparin-PF4 Antibody Screen [Pending] 03/12/18 08:15: Arterial Blood pH 7.418, Arterial Blood Partial Pressure CO2 20.8*L, Arterial Blood Partial Pressure O2 133.2H, Arterial Blood HCO3 13.1*L, Arterial Blood Oxygen Saturation 97.6, Arterial Blood Base Excess -9.9*L, Michael Test Positive Height (Feet): 5 Height (Inches): 10.00 Weight (Pounds): 165 Neck: supple Cardiovascular: normal rate Respiratory/Chest: lungs clear Abdomen: soft Krzysztof Schneider MD Mar 12, 2018 20:20
--- NOTE | 2018-03-12 20:23 | General Progress Note ---
Assessment/Plan Problem List: (1) Seizure disorder ICD Codes: G40.909 - Epilepsy, unspecified, not intractable, without status epilepticus SNOMED: 855270817 (2) Encephalopathy due to metabolic factor or toxin SNOMED: 284865615 Status: stable Assessment/Plan (1) Seizure disorder ICD Codes: G40.909 - Epilepsy, unspecified, not intractable, without status epilepticus SNOMED: 726204039 (2) Encephalopathy due to metabolic factor or toxin SNOMED: 667770567 Status: unchanged Assessment/Plan seroquel prn Subjective Date patient seen: Mar 12, 2018 Neurologic/Psychiatric: Reports: anxiety Allergies: Coded Allergies: PENICILLINS (Unverified Allergy, Mild, 12/04/12) Objective Last 24 Hour Vital Signs Date Time Temp Pulse Resp B/P (MAP) Pulse Ox O2 Delivery O2 Flow Rate FiO2 03/12/18 18:59 85 22 30 03/12/18 18:00 85 21 159/92 (114) 100 03/12/18 17:07 81 20 25 03/12/18 17:00 82 22 175/68 (103) 100 03/12/18 16:00 82 22 153/87 (109) 100 03/12/18 16:00 83 03/12/18 16:00 Mechanical Ventilator 03/12/18 16:00 30 03/12/18 15:15 82 19 25 03/12/18 15:00 93 29 143/68 (93) 100 03/12/18 14:00 85 23 152/91 (111) 100 03/12/18 13:05 82 24 25 03/12/18 13:00 98.7 84 23 156/94 (114) 100 03/12/18 12:04 185/63 03/12/18 12:00 84 03/12/18 12:00 85 22 185/63 (103) 100 03/12/18 12:00 30 03/12/18 12:00 Mechanical Ventilator 03/12/18 11:45 83 169/81 03/12/18 11:05 91 30 25 03/12/18 11:00 86 24 169/81 (110) 100 03/12/18 11:00 30 03/12/18 10:44 85 26 25 03/12/18 10:00 83 28 170/70 (103) 100 03/12/18 09:25 86 22 25 03/12/18 09:25 30 03/12/18 09:23 100 03/12/18 09:21 79 20 25 03/12/18 09:18 78 18 25 03/12/18 09:00 78 18 157/76 (103) 100 03/12/18 08:00 98.8 79 20 146/82 (103) 100 03/12/18 08:00 30 03/12/18 08:00 Mechanical Ventilator 03/12/18 08:00 88 03/12/18 07:29 80 20 30 03/12/18 07:00 84 21 151/89 (109) 100 03/12/18 06:00 82 21 138/58 (84) 100 03/12/18 05:01 84 20 30 03/12/18 05:00 81 19 149/80 (103) 100 03/12/18 04:00 81 03/12/18 04:00 30 03/12/18 04:00 97.8 81 20 148/85 (106) 100 03/12/18 04:00 Mechanical Ventilator 03/12/18 03:00 80 17 153/52 (85) 100 03/12/18 02:31 77 16 30 03/12/18 02:00 78 17 158/48 (84) 100 03/12/18 01:00 82 16 146/45 (78) 100 03/12/18 00:53 80 19 30 03/12/18 00:00 Mechanical Ventilator 03/12/18 00:00 83 21 141/59 (86) 100 03/11/18 23:28 82 22 30 03/11/18 23:00 80 19 117/39 (65) 100 03/11/18 22:00 79 15 147/52 (83) 100 03/11/18 21:14 81 24 30 03/11/18 21:00 80 16 151/81 (104) 100 03/11/18 20:34 153/85 Intake and Output 03/11/18 03/12/18 18:59 06:59 Intake Total 1363 ml 1130 ml Output Total 1360 ml 700 ml Balance 3 ml 430 ml Intake Free Water 30 ml 30 ml IV Total 1158 ml 750 ml Tube Feeding 75 ml 350 ml Other 100 ml Output Urine Total 1260 ml 700 ml Gastric Drainage Total 100 ml # Bowel Movements 1 6 Laboratory Tests 03/12/18 04:00: White Blood Count 12.0H, Red Blood Count 3.08L, Hemoglobin 8.3L, Hematocrit 25.6L, Mean Corpuscular Volume 83, Mean Corpuscular Hemoglobin 27.0, Mean Corpuscular Hemoglobin Concent 32.4, Red Cell Distribution Width 13.7, Platelet Count 144L, Mean Platelet Volume 9.8, Neutrophils (%) (Auto) 74.3, Lymphocytes ( %) (Auto) 13.1L, Monocytes (%) (Auto) 9.0, Eosinophils (%) (Auto) 2.9, Basophils (%) (Auto) 0.6, Sodium Level 148H, Potassium Level 3.0L, Chloride Level 119H, Carbon Dioxide Level 14L, Anion Gap 15, Blood Urea Nitrogen 83H, Creatinine 3.3H, Estimat Glomerular Filtration Rate , Glucose Level 177H, Uric Acid 7.7H, Calcium Level 7.1L, Phosphorus Level 2.8, Magnesium Level 2.3, Total Bilirubin 0.3, Aspartate Amino Transf (AST/SGOT) 18, Alanine Aminotransferase ( ALT/SGPT) 36, Alkaline Phosphatase 100, Troponin I 0.055, Pro-B-Type Natriuretic Peptide 7499H, Total Protein 5.4L, Albumin 2.1L, Globulin 3.3, Albumin/Globulin Ratio 0.6L, Random Vancomycin Level 18.0, Heparin-PF4 Antibody Screen [Pending] 03/12/18 08:15: Arterial Blood pH 7.418, Arterial Blood Partial Pressure CO2 20.8*L, Arterial Blood Partial Pressure O2 133.2H, Arterial Blood HCO3 13.1*L, Arterial Blood Oxygen Saturation 97.6, Arterial Blood Base Excess -9.9*L, Michael Test Positive Height (Feet): 5 Height (Inches): 10.00 Weight (Pounds): 165 General Appearance: lethargic, confused, agitated China Kidd MD Mar 12, 2018 20:23
[2018-03-12] MEDS: Dyna-Hex 2% Top Sol 2oz TOPIC SCH (20:29)
[2018-03-12] MEDS: Heparin 5000 units/ml inj SUBQ SCH (20:30)
--- NOTE | 2018-03-12 22:49 | Cardiology Progress Note ---
Assessment/Plan Assessment/Plan 1. Septic shock, hydration, Levophed gtt if SBP <90 mmHg, 2D echocardiography with normal LV systolic function with normal intracardiac filling pressures. Continue hydration. 2. Atrial fibrillation with rapid ventricular response, converted to SR, continue the current regimen. 3. History of hypertension. 4. History of diabetes mellitus. Subjective Subjective Sinus rhythm at rate of 85. Intubated. Objective Last 24 Hour Vital Signs Date Time Temp Pulse Resp B/P (MAP) Pulse Ox O2 Delivery O2 Flow Rate FiO2 03/12/18 22:00 82 21 173/85 (114) 100 03/12/18 21:00 82 21 173/84 (113) 100 03/12/18 20:44 84 19 30 03/12/18 20:30 152/66 03/12/18 20:00 82 03/12/18 20:00 98.3 85 21 168/93 (118) 100 03/12/18 20:00 Mechanical Ventilator 03/12/18 20:00 30 03/12/18 19:00 86 20 168/92 (117) 100 03/12/18 18:59 85 22 30 03/12/18 18:00 85 21 159/92 (114) 100 03/12/18 17:07 81 20 25 03/12/18 17:00 82 22 175/68 (103) 100 03/12/18 16:00 82 22 153/87 (109) 100 03/12/18 16:00 83 03/12/18 16:00 Mechanical Ventilator 03/12/18 16:00 30 03/12/18 15:15 82 19 25 03/12/18 15:00 93 29 143/68 (93) 100 03/12/18 14:00 85 23 152/91 (111) 100 03/12/18 13:05 82 24 25 03/12/18 13:00 98.7 84 23 156/94 (114) 100 03/12/18 12:04 185/63 03/12/18 12:00 84 03/12/18 12:00 85 22 185/63 (103) 100 03/12/18 12:00 30 03/12/18 12:00 Mechanical Ventilator 03/12/18 11:45 83 169/81 03/12/18 11:05 91 30 25 03/12/18 11:00 86 24 169/81 (110) 100 03/12/18 11:00 30 03/12/18 10:44 85 26 25 03/12/18 10:00 83 28 170/70 (103) 100 03/12/18 09:25 86 22 25 03/12/18 09:25 30 03/12/18 09:23 100 03/12/18 09:21 79 20 25 03/12/18 09:18 78 18 25 03/12/18 09:00 78 18 157/76 (103) 100 03/12/18 08:00 98.8 79 20 146/82 (103) 100 03/12/18 08:00 30 03/12/18 08:00 Mechanical Ventilator 03/12/18 08:00 88 03/12/18 07:29 80 20 30 03/12/18 07:00 84 21 151/89 (109) 100 03/12/18 06:00 82 21 138/58 (84) 100 03/12/18 05:01 84 20 30 03/12/18 05:00 81 19 149/80 (103) 100 03/12/18 04:00 81 03/12/18 04:00 30 03/12/18 04:00 97.8 81 20 148/85 (106) 100 03/12/18 04:00 Mechanical Ventilator 03/12/18 03:00 80 17 153/52 (85) 100 03/12/18 02:31 77 16 30 03/12/18 02:00 78 17 158/48 (84) 100 03/12/18 01:00 82 16 146/45 (78) 100 03/12/18 00:53 80 19 30 03/12/18 00:00 Mechanical Ventilator 03/12/18 00:00 83 21 141/59 (86) 100 03/11/18 23:28 82 22 30 03/11/18 23:00 80 19 117/39 (65) 100 Intake and Output 03/11/18 03/12/18 18:59 06:59 Intake Total 1363 ml 1130 ml Output Total 1360 ml 700 ml Balance 3 ml 430 ml Intake Free Water 30 ml 30 ml IV Total 1158 ml 750 ml Tube Feeding 75 ml 350 ml Other 100 ml Output Urine Total 1260 ml 700 ml Gastric Drainage Total 100 ml # Bowel Movements 1 6 2D Echo: LVEF 55%, Mild LVH, Grade I LVDD, RVSP 20 mmHg Laboratory Tests Test 03/12/18 04:00 03/12/18 08:15 White Blood Count 12.0 K/UL (4.8-10.8) H Red Blood Count 3.08 M/UL (4.20-5.40) L Hemoglobin 8.3 G/DL (12.0-16.0) L Hematocrit 25.6 % (37.0-47.0) L Mean Corpuscular Volume 83 FL (80-99) Mean Corpuscular Hemoglobin 27.0 PG (27.0-31.0) Mean Corpuscular Hemoglobin Concent 32.4 G/DL (32.0-36.0) Red Cell Distribution Width 13.7 % (11.6-14.8) Platelet Count 144 K/UL (150-450) L Mean Platelet Volume 9.8 FL (6.5-10.1) Neutrophils (%) (Auto) 74.3 % (45.0-75.0) Lymphocytes (%) (Auto) 13.1 % (20.0-45.0) L Monocytes (%) (Auto) 9.0 % (1.0-10.0) Eosinophils (%) (Auto) 2.9 % (0.0-3.0) Basophils (%) (Auto) 0.6 % (0.0-2.0) Sodium Level 148 MMOL/L (136-145) H Potassium Level 3.0 MMOL/L (3.5-5.1) L Chloride Level 119 MMOL/L (98-107) H Carbon Dioxide Level 14 MMOL/L (21-32) L Anion Gap 15 mmol/L (5-15) Blood Urea Nitrogen 83 mg/dL (7-18) H Creatinine 3.3 MG/DL (0.55-1.30) H Estimat Glomerular Filtration Rate mL/min (>60) Glucose Level 177 MG/DL (74-106) H Uric Acid 7.7 MG/DL (2.6-7.2) H Calcium Level 7.1 MG/DL (8.5-10.1) L Phosphorus Level 2.8 MG/DL (2.5-4.9) Magnesium Level 2.3 MG/DL (1.8-2.4) Total Bilirubin 0.3 MG/DL (0.2-1.0) Aspartate Amino Transf (AST/SGOT) 18 U/L (15-37) Alanine Aminotransferase (ALT/SGPT) 36 U/L (12-78) Alkaline Phosphatase 100 U/L (46-116) Troponin I 0.055 ng/mL (0.000-0.056) Pro-B-Type Natriuretic Peptide 7499 pg/mL (0-125) H Total Protein 5.4 G/DL (6.4-8.2) L Albumin 2.1 G/DL (3.4-5.0) L Globulin 3.3 g/dL Albumin/Globulin Ratio 0.6 (1.0-2.7) L Random Vancomycin Level 18.0 ug/mL Heparin-PF4 Antibody Screen Pending Arterial Blood pH 7.418 (7.350-7.450) Arterial Blood Partial Pressure CO2 20.8 mmHg (35.0-45.0) *L Arterial Blood Partial Pressure O2 133.2 mmHg (75.0-100.0) H Arterial Blood HCO3 13.1 mmol/L (22.0-26.0) *L Arterial Blood Oxygen Saturation 97.6 % (95-100) Arterial Blood Base Excess -9.9 (-2-2) *L Michael Test Positive Objective HEENT: Atraumatic and normocephalic. Anicteric. Pupils are equal, round, and reactive to light and accommodation. Extraocular muscles intact. NECK: JVP less than 5 cm. No carotid bruits. Carotid upstrokes 2+ bilaterally. CARDIOVASCULAR SYSTEM: Normal S1, S2. Regular rhythm. No murmurs, gallops, or rubs. LUNGS: Diminished breath sounds in both bases. ABDOMEN: Soft, nontender, and nondistended. No hepatosplenomegaly. Positive G-tube in place. EXTREMITIES: No evidence of edema, clubbing, or cyanosis. Everett Tomas MD Mar 12, 2018 22:49
[2018-03-13] VITALS (24 sets, daily range): BP systolic 131–179; BP diastolic 44–103
[2018-03-13] MEDS: Sodium Citrate 30ml NG SCH ×4 (05:47→23:52)
[2018-03-13] MEDS: NovoLOG Insulin Flexpen SUBQ SCH ×4 (05:48→23:55)
[2018-03-13 05:56] LABS: BASOPHILS % (AUTO) 0.8 % (0.0-2.0); EOSINOPHILS % (AUTO) 2.9 % (0.0-3.0); HEMATOCRIT 26.3 % (37.0-47.0); HEMOGLOBIN 8.8 G/DL (12.0-16.0); LYMPHOCYTES % (AUTO) 12.5 % (20.0-45.0); MEAN CORPUSCULAR VOLUME 84 FL (80-99); MONOCYTES % (AUTO) 8.5 % (1.0-10.0); NEUTROPHILS % (AUTO) 75.3 % (45.0-75.0); PLATELET COUNT 156 K/UL (150-450); RED BLOOD COUNT 3.14 M/UL (4.20-5.40); RED CELL DISTRIBUTION WIDTH 13.4 % (11.6-14.8); WHITE BLOOD COUNT 10.3 K/UL (4.8-10.8)
[2018-03-13 06:23] LABS: CREATINE KINASE 56 U/L (26-308); GAMMA GLUTAMYL TRANSPEPTIDASE 100 U/L (5-85)
[2018-03-13 06:30] LABS: ALANINE AMINOTRANSFERASE 38 U/L (12-78); ALBUMIN/GLOBULIN RATIO 0.6 (1.0-2.7); ALKALINE PHOSPHATASE 110 U/L (46-116); ANION GAP 13 mmol/L (5-15); ASPARTATE AMINO TRANSFERASE 27 U/L (15-37); BILIRUBIN,TOTAL 0.3 MG/DL (0.2-1.0); BLOOD UREA NITROGEN 67 mg/dL (7-18); CALCIUM 7.8 MG/DL (8.5-10.1); CARBON DIOXIDE 18 MMOL/L (21-32); CHLORIDE 119 MMOL/L (98-107); CREATININE 2.6 MG/DL (0.55-1.30); PHOSPHORUS 2.3 MG/DL (2.5-4.9); POTASSIUM 3.1 MMOL/L (3.5-5.1); SODIUM 150 MMOL/L (136-145)
[2018-03-13] MEDS: Potassium Chloride 10 MEQ in D5 1/2NS 1,000 ML IV SCH (06:40)
[2018-03-13] MEDS ORDERED: Heparin 2000 units/Ns 1000ml INJ PRN ×2 (07:51→14:49)
[2018-03-13] MEDS ORDERED: Lidocaine 1% Plain 30 ml INJ PRN ×2 (07:52→14:49)
[2018-03-13] MEDS: Aspirin Baby 81mg NG SCH (08:26)
[2018-03-13] MEDS: Pantoprazole Inj IVP SCH ×2 (08:27→20:46)
[2018-03-13] MEDS: Acetaminophen 650mg/20.3ml GT PRN (08:27)
[2018-03-13] MEDS: Heparin 5000 units/ml inj SUBQ SCH ×2 (08:29→20:47)
[2018-03-13] MEDS: levETIRAcetam 500mg/5ml Liquid GT SCH ×2 (08:31→20:46)
[2018-03-13] MEDS: Micafungin 100 MG in NS 110 ML IVPB SCH (09:42)
[2018-03-13] MEDS: Meropenem 500 MG in NS 55 ML IVPB SCH ×2 (09:42→22:07)
[2018-03-13] MEDS: D5W w/KCl 20mEq 1,000 ML IV SCH ×2 (10:59→20:07)
[2018-03-13] MEDS ORDERED: Potassium Phosphate 20 MM in NS 275 ML IV SCH (11:00)
--- NOTE | 2018-03-13 11:02 | Infectious Diseases Prog Note ---
Assessment/Plan Assessment/Plan A; Septic shock, off pressor Fungal sepsis UTI with MRSA & Citrobacter Acute respiratory failure Acute renal failure Chronic kidney disease Elevated transaminase Dementia P; Continue Zosyn, Micafungin & Vancomycin with F/U cultures PICC line placement & removal of central line Send line tip for culture Case was D/W RN Subjective ROS Limited/Unobtainable: Yes Gastrointestinal/Abdominal: Reports: diarrhea Allergies: Coded Allergies: PENICILLINS (Unverified Allergy, Mild, 12/04/12) Objective Vital Signs Last 24 Hour Vital Signs Date Time Temp Pulse Resp B/P (MAP) Pulse Ox O2 Delivery O2 Flow Rate FiO2 03/13/18 10:00 84 22 161/54 (89) 100 03/13/18 10:00 85 23 161/54 (89) 100 03/13/18 09:00 86 29 163/59 (93) 100 03/13/18 08:57 98.9 03/13/18 08:55 86 24 30 03/13/18 08:27 81 148/72 03/13/18 08:00 Mechanical Ventilator 03/13/18 08:00 30 03/13/18 08:00 99.5 88 20 148/72 (97) 100 03/13/18 08:00 85 03/13/18 07:00 97 21 160/103 (122) 100 03/13/18 06:56 93 19 30 03/13/18 06:00 101 19 157/67 (97) 100 03/13/18 05:10 93 20 30 03/13/18 05:00 99 19 167/64 (98) 100 03/13/18 04:00 91 03/13/18 04:00 Mechanical Ventilator 03/13/18 04:00 30 03/13/18 04:00 98.3 90 19 158/63 (94) 100 03/13/18 03:13 90 19 30 03/13/18 03:00 92 19 158/56 (90) 100 03/13/18 02:00 89 19 169/83 (111) 100 03/13/18 01:00 95 20 173/77 (109) 100 03/13/18 00:59 94 19 30 03/13/18 00:00 95 03/13/18 00:00 Mechanical Ventilator 03/13/18 00:00 98.0 94 20 179/85 (116) 100 03/13/18 00:00 30 03/12/18 23:07 86 18 30 03/12/18 23:00 87 21 160/73 (102) 100 03/12/18 22:00 82 21 173/85 (114) 100 03/12/18 21:00 82 21 173/84 (113) 100 03/12/18 20:44 84 19 30 03/12/18 20:30 152/66 03/12/18 20:00 82 03/12/18 20:00 98.3 85 21 168/93 (118) 100 03/12/18 20:00 Mechanical Ventilator 03/12/18 20:00 30 03/12/18 19:00 86 20 168/92 (117) 100 03/12/18 18:59 85 22 30 03/12/18 18:00 85 21 159/92 (114) 100 03/12/18 17:07 81 20 25 03/12/18 17:00 82 22 175/68 (103) 100 03/12/18 16:00 82 22 153/87 (109) 100 03/12/18 16:00 83 03/12/18 16:00 Mechanical Ventilator 03/12/18 16:00 30 03/12/18 15:15 82 19 25 03/12/18 15:00 93 29 143/68 (93) 100 03/12/18 14:00 85 23 152/91 (111) 100 03/12/18 13:05 82 24 25 03/12/18 13:00 98.7 84 23 156/94 (114) 100 03/12/18 12:04 185/63 03/12/18 12:00 84 03/12/18 12:00 85 22 185/63 (103) 100 03/12/18 12:00 30 03/12/18 12:00 Mechanical Ventilator 03/12/18 11:45 83 169/81 03/12/18 11:05 91 30 25 03/12/18 11:00 86 24 169/81 (110) 100 03/12/18 11:00 30 Height (Feet): 5 Height (Inches): 10.00 Weight (Pounds): 185 HEENT: mucous membranes moist, other - orally intubated Respiratory/Chest: lungs clear, other - on ventilator Cardiovascular: normal rate, other - R femoral line Abdomen: soft, non tender, other - GT & rectal tube Extremities: no edema Neurologic/Psychiatric: aphasia Microbiology Date/Time Source Procedure Growth Status 03/12/18 22:45 Stool Clostridium difficile Toxin Assay - Final Complete Laboratory Tests Test 03/13/18 04:00 White Blood Count 10.3 K/UL (4.8-10.8) Red Blood Count 3.14 M/UL (4.20-5.40) L Hemoglobin 8.8 G/DL (12.0-16.0) L Hematocrit 26.3 % (37.0-47.0) L Mean Corpuscular Volume 84 FL (80-99) Mean Corpuscular Hemoglobin 28.2 PG (27.0-31.0) Mean Corpuscular Hemoglobin Concent 33.6 G/DL (32.0-36.0) Red Cell Distribution Width 13.4 % (11.6-14.8) Platelet Count 156 K/UL (150-450) Mean Platelet Volume 9.2 FL (6.5-10.1) Neutrophils (%) (Auto) 75.3 % (45.0-75.0) H Lymphocytes (%) (Auto) 12.5 % (20.0-45.0) L Monocytes (%) (Auto) 8.5 % (1.0-10.0) Eosinophils (%) (Auto) 2.9 % (0.0-3.0) Basophils (%) (Auto) 0.8 % (0.0-2.0) Sodium Level 150 MMOL/L (136-145) H Potassium Level 3.1 MMOL/L (3.5-5.1) L Chloride Level 119 MMOL/L (98-107) H Carbon Dioxide Level 18 MMOL/L (21-32) L Anion Gap 13 mmol/L (5-15) Blood Urea Nitrogen 67 mg/dL (7-18) H Creatinine 2.6 MG/DL (0.55-1.30) H Estimat Glomerular Filtration Rate mL/min (>60) Glucose Level 174 MG/DL (74-106) H Uric Acid 7.5 MG/DL (2.6-7.2) H Calcium Level 7.8 MG/DL (8.5-10.1) L Phosphorus Level 2.3 MG/DL (2.5-4.9) L Magnesium Level 2.1 MG/DL (1.8-2.4) Total Bilirubin 0.3 MG/DL (0.2-1.0) Gamma Glutamyl Transpeptidase 100 U/L (5-85) H Aspartate Amino Transf (AST/SGOT) 27 U/L (15-37) Alanine Aminotransferase (ALT/SGPT) 38 U/L (12-78) Alkaline Phosphatase 110 U/L (46-116) Total Creatine Kinase 56 U/L (26-308) Troponin I 0.065 ng/mL (0.000-0.056) C-Reactive Protein, Quantitative 11.3 mg/dL (0.00-0.90) H Pro-B-Type Natriuretic Peptide 7235 pg/mL (0-125) H Total Protein 5.6 G/DL (6.4-8.2) L Albumin 2.0 G/DL (3.4-5.0) L Globulin 3.6 g/dL Albumin/Globulin Ratio 0.6 (1.0-2.7) L Current Medications Medications (Trade) Dose Ordered Sig/Gelacio Route PRN Reason Start Time Stop Time Status Last Admin Dose Admin Acetaminophen (Tylenol) 650 mg Q6H PRN GT FEVER 03/08/18 15:15 04/07/18 15:14 03/13/18 08:27 Albuterol/ Ipratropium (Albuterol/ Ipratropium) 3 ml Q4H PRN HHN Shortness of Breath 03/08/18 15:15 03/13/18 15:14 Amlodipine Besylate (Norvasc) 5 mg BID GT 03/13/18 18:00 04/12/18 08:59 Aspirin (ASA) 81 mg DAILY NG 03/09/18 09:00 04/08/18 08:59 03/13/18 08:26 Chlorhexidine Gluconate (Xiomara-Hex 2%) 1 applic DAILY@2000 TOPIC 03/08/18 22:30 04/08/18 22:29 03/12/18 20:29 Dextrose (Dextrose 50%) 25 ml Q30M PRN IV Hypoglycemia 03/08/18 15:15 04/07/18 15:14 Dextrose (Dextrose 50%) 50 ml Q30M PRN IV Hypoglycemia 03/08/18 15:15 04/07/18 15:14 Dextrose/ Electrolytes 1,000 ml @ 100 mls/hr Q10H IV 03/13/18 11:00 04/12/18 10:59 Heparin Sodium (Porcine) (Heparin 5000 units/ml) 5,000 units EVERY 12 HOURS SUBQ 03/08/18 21:00 04/07/18 20:59 03/13/18 08:29 Heparin Sodium/ Sodium Chloride (Heparin 2000 units/Ns 1000ml premix) 2,000 unit ONCE PRN INJ PICC 03/13/18 07:51 03/13/18 23:59 Insulin Aspart (NovoLOG) Q6HR SUBQ 03/12/18 12:00 04/11/18 11:59 03/13/18 05:48 Levetiracetam (Keppra) 750 mg Q12HR GT 03/08/18 21:00 04/07/18 20:59 03/13/18 08:31 Lidocaine HCl (Xylocaine 1% 30ml) 30 ml ONCE PRN INJ PICC 03/13/18 07:52 03/13/18 23:59 Meropenem 500 mg/ Sodium Chloride 55 ml @ 110 mls/hr Q12H IVPB 03/10/18 10:00 03/15/18 09:59 03/13/18 09:42 Micafungin Sodium 100 mg/Sodium Chloride 110 ml @ 110 mls/hr Q24H IVPB 03/11/18 10:00 03/18/18 09:59 03/13/18 09:42 Nitroglycerin (Ntg) 1 patch Q24H TDERMAL 03/11/18 13:00 04/10/18 12:59 03/12/18 12:04 Norepinephrine Bitartrate 4 mg/ Dextrose 250 ml @ 0 mls/hr Q24H IV 03/08/18 20:34 04/07/18 20:33 03/09/18 12:53 Ondansetron HCl (Zofran) 4 mg Q6H PRN IVP Nausea & Vomiting 03/08/18 15:15 04/07/18 15:14 Pantoprazole (Protonix) 40 mg EVERY 12 HOURS IVP 03/08/18 21:00 04/07/18 20:59 03/13/18 08:27 Potassium Phosphate 20 mm/ Sodium Chloride 281.6667 ml @ 46.944 m... ONCE IV 03/13/18 11:00 03/13/18 17:00 Potassium Chloride 100 ml @ 100 mls/hr Q1H IVPB 03/13/18 10:30 03/13/18 13:29 Quetiapine Fumarate (SEROquel) 12.5 mg Q4H PRN ORAL agitation 03/09/18 19:45 04/08/18 19:44 03/11/18 21:02 Sodium Citrate (Bicitra) 30 ml EVERY 6 HOURS NG 03/11/18 12:45 04/10/18 12:44 03/13/18 05:47 Vancomycin HCl (Vanco rx to dose) 1 ea DAILY PRN MISC Per rx protocol 03/11/18 14:00 04/10/18 13:59 Wilder French MD Mar 13, 2018 11:02
--- NOTE | 2018-03-13 12:35 | Nephrology Progress Note ---
Assessment/Plan Problem List: (1) MARK (acute kidney injury) (2) CKD (chronic kidney disease) (3) Sepsis (4) Respiratory failure (5) Shock (6) Anemia Assessment acute on chronic renal failure: Oliguric ATN Hypotension? due to sepsis: Shock Acute respiratory failure PEG DM Shock liver Sever HypoAlbuminemia Plan 2D echo Ej Fx 55 % monitor Vanco levels Albumin bolus up dose Norvasc stool C dif change IV fluids- start Bicitra GT pulm support urine studies avoid Nephrotoxics Monitor renal parameters Transfuse I unit PADMA: Cholelithiasis. 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, consistent with angiomyolipoma no [place] Subjective ROS Limited/Unobtainable: Yes Objective Objective Last 24 Hour Vital Signs Date Time Temp Pulse Resp B/P (MAP) Pulse Ox O2 Delivery O2 Flow Rate FiO2 03/13/18 12:00 92 03/13/18 12:00 98.8 94 20 135/48 (77) 100 03/13/18 12:00 30 03/13/18 11:00 76 20 142/48 (79) 100 03/13/18 10:00 84 22 161/54 (89) 100 03/13/18 10:00 85 23 161/54 (89) 100 03/13/18 09:00 86 29 163/59 (93) 100 03/13/18 09:00 30 03/13/18 08:57 98.9 03/13/18 08:55 86 24 30 03/13/18 08:27 81 148/72 03/13/18 08:00 Mechanical Ventilator 03/13/18 08:00 30 03/13/18 08:00 99.5 88 20 148/72 (97) 100 03/13/18 08:00 85 03/13/18 07:00 97 21 160/103 (122) 100 03/13/18 06:56 93 19 30 03/13/18 06:00 101 19 157/67 (97) 100 03/13/18 05:10 93 20 30 03/13/18 05:00 99 19 167/64 (98) 100 03/13/18 04:00 91 03/13/18 04:00 Mechanical Ventilator 03/13/18 04:00 30 03/13/18 04:00 98.3 90 19 158/63 (94) 100 03/13/18 03:13 90 19 30 03/13/18 03:00 92 19 158/56 (90) 100 03/13/18 02:00 89 19 169/83 (111) 100 03/13/18 01:00 95 20 173/77 (109) 100 03/13/18 00:59 94 19 30 03/13/18 00:00 95 03/13/18 00:00 Mechanical Ventilator 03/13/18 00:00 98.0 94 20 179/85 (116) 100 03/13/18 00:00 30 03/12/18 23:07 86 18 30 03/12/18 23:00 87 21 160/73 (102) 100 03/12/18 22:00 82 21 173/85 (114) 100 03/12/18 21:00 82 21 173/84 (113) 100 03/12/18 20:44 84 19 30 03/12/18 20:30 152/66 03/12/18 20:00 82 03/12/18 20:00 98.3 85 21 168/93 (118) 100 03/12/18 20:00 Mechanical Ventilator 03/12/18 20:00 30 03/12/18 19:00 86 20 168/92 (117) 100 03/12/18 18:59 85 22 30 03/12/18 18:00 85 21 159/92 (114) 100 03/12/18 17:07 81 20 25 03/12/18 17:00 82 22 175/68 (103) 100 03/12/18 16:00 82 22 153/87 (109) 100 03/12/18 16:00 83 03/12/18 16:00 Mechanical Ventilator 03/12/18 16:00 30 03/12/18 15:15 82 19 25 03/12/18 15:00 93 29 143/68 (93) 100 03/12/18 14:00 85 23 152/91 (111) 100 03/12/18 13:05 82 24 25 03/12/18 13:00 98.7 84 23 156/94 (114) 100 Intake and Output 03/12/18 03/13/18 19:00 07:00 Intake Total 2660 ml 1525 ml Output Total 1020 ml 665 ml Balance 1640 ml 860 ml Intake Free Water 240 ml 90 ml IV Total 1970 ml 1005 ml Tube Feeding 150 ml 330 ml Other 300 ml 100 ml Output Urine Total 1020 ml 665 ml # Bowel Movements 4 3 Laboratory Tests 03/13/18 04:00: White Blood Count 10.3, Red Blood Count 3.14L, Hemoglobin 8.8L, Hematocrit 26.3L , Mean Corpuscular Volume 84, Mean Corpuscular Hemoglobin 28.2, Mean Corpuscular Hemoglobin Concent 33.6, Red Cell Distribution Width 13.4, Platelet Count 156, Mean Platelet Volume 9.2, Neutrophils (%) (Auto) 75.3H, Lymphocytes ( %) (Auto) 12.5L, Monocytes (%) (Auto) 8.5, Eosinophils (%) (Auto) 2.9, Basophils (%) (Auto) 0.8, Sodium Level 150H, Potassium Level 3.1L, Chloride Level 119H, Carbon Dioxide Level 18L, Anion Gap 13, Blood Urea Nitrogen 67H, Creatinine 2.6H, Estimat Glomerular Filtration Rate , Glucose Level 174H, Uric Acid 7.5H, Calcium Level 7.8L, Phosphorus Level 2.3L, Magnesium Level 2.1, Total Bilirubin 0.3, Gamma Glutamyl Transpeptidase 100H, Aspartate Amino Transf (AST/SGOT) 27, Alanine Aminotransferase (ALT/SGPT) 38, Alkaline Phosphatase 110 , Total Creatine Kinase 56, Troponin I 0.065H, C-Reactive Protein, Quantitative 11.3H, Pro-B-Type Natriuretic Peptide 7235H, Total Protein 5.6L, Albumin 2.0L, Globulin 3.6, Albumin/Globulin Ratio 0.6L Height (Feet): 5 Height (Inches): 10.00 Weight (Pounds): 185 General Appearance: no apparent distress Cardiovascular: tachycardia Respiratory/Chest: decreased breath sounds Abdomen: soft, distended Objective no change Phil Ortiz MD Mar 13, 2018 12:35
[2018-03-13] MEDS: Nitroglycerin Patch 0.4mg TDERMAL SCH (12:41)
--- NOTE | 2018-03-13 13:30 | Cardiology Report ---
APPROVED REPORT EXAM: Two-dimensional and M-mode echocardiogram with Doppler and color Doppler. INDICATION Chest Pain M-Mode DIMENSIONS IVSd1.5 (0.7-1.1cm)Left Atrium (MM)3.1 (1.6-4.0cm) LVDd4.7 (3.5-5.6cm)Aortic Root2.9 (2.0-3.7cm) PWd1.4 (0.7-1.1cm)Aortic Cusp Exc.1.4 (1.5-2.0cm) IVSs2.0 cm LVDs3.3 (2.5-4.0cm) PWs1.6 cm Normal left ventricular chamber size, systolic function and wall motion to extent visualized. Left ventricular ejection fraction estimated to be 55-60 %. Study quality precludes accurate assessment of regional wall motion. Mild left ventricular hypertrophy by 2-D. No evidence of pericardial effusion All other cardiac chamber sizes are within normal limits. Focal aortic valve sclerosis with adequate cusp excursion. Thickened mitral valve leaflets with normal excursion. Mitral annulus and aortic root calcification. Pulmonic valve not well visualized. Normal tricuspid valve structure. IVC dilated at 2.4 cm without physiologic collapse suggestive of increased RA pressure. A color flow and spectral Doppler study was performed and revealed: No aortic regurgitation. Trace mitral regurgitation. Mitral diastolic velocities suggest reduced left ventricular relaxation c/w mild LV diastolic dysfunction (Grade I ). Trace tricuspid regurgitation. Tricuspid systolic velocities suggests peak right ventricular systolic pressure of 20 mmHg
[2018-03-13] MEDS ORDERED: NS 275ml ONE (13:58)
[2018-03-13] MEDS ORDERED: Tubing IV Secondary IV ONE (13:58)
--- NOTE | 2018-03-13 14:10 | General Surgery Progress Note ---
General Surgery-Progress Note Subjective Additional Comments leukocytosis resolved. LFT's resolved. labs noted in ICU on support Objective Last 24 Hour Vital Signs Date Time Temp Pulse Resp B/P (MAP) Pulse Ox O2 Delivery O2 Flow Rate FiO2 03/13/18 14:00 89 18 153/53 (86) 100 03/13/18 13:00 99 03/13/18 13:00 75 20 30 03/13/18 13:00 85 21 Mechanical Ventilator 15.0 30 03/13/18 13:00 84 18 153/52 (85) 100 03/13/18 12:41 135/48 03/13/18 12:00 92 03/13/18 12:00 98.8 94 20 135/48 (77) 100 03/13/18 12:00 30 03/13/18 12:00 Mechanical Ventilator 03/13/18 11:00 76 20 142/48 (79) 100 03/13/18 10:30 75 20 30 03/13/18 10:00 84 22 161/54 (89) 100 03/13/18 10:00 85 23 161/54 (89) 100 03/13/18 09:00 86 29 163/59 (93) 100 03/13/18 09:00 30 03/13/18 08:57 98.9 03/13/18 08:55 86 24 30 03/13/18 08:27 81 148/72 03/13/18 08:00 Mechanical Ventilator 03/13/18 08:00 30 03/13/18 08:00 99.5 88 20 148/72 (97) 100 03/13/18 08:00 85 03/13/18 07:00 97 21 160/103 (122) 100 03/13/18 06:56 93 19 30 03/13/18 06:00 101 19 157/67 (97) 100 03/13/18 05:10 93 20 30 03/13/18 05:00 99 19 167/64 (98) 100 03/13/18 04:00 91 03/13/18 04:00 Mechanical Ventilator 03/13/18 04:00 30 03/13/18 04:00 98.3 90 19 158/63 (94) 100 03/13/18 03:13 90 19 30 03/13/18 03:00 92 19 158/56 (90) 100 03/13/18 02:00 89 19 169/83 (111) 100 03/13/18 01:00 95 20 173/77 (109) 100 03/13/18 00:59 94 19 30 03/13/18 00:00 95 03/13/18 00:00 Mechanical Ventilator 03/13/18 00:00 98.0 94 20 179/85 (116) 100 03/13/18 00:00 30 03/12/18 23:07 86 18 30 03/12/18 23:00 87 21 160/73 (102) 100 03/12/18 22:00 82 21 173/85 (114) 100 03/12/18 21:00 82 21 173/84 (113) 100 03/12/18 20:44 84 19 30 03/12/18 20:30 152/66 03/12/18 20:00 82 03/12/18 20:00 98.3 85 21 168/93 (118) 100 03/12/18 20:00 Mechanical Ventilator 03/12/18 20:00 30 03/12/18 19:00 86 20 168/92 (117) 100 03/12/18 18:59 85 22 30 03/12/18 18:00 85 21 159/92 (114) 100 03/12/18 17:07 81 20 25 03/12/18 17:00 82 22 175/68 (103) 100 03/12/18 16:00 82 22 153/87 (109) 100 03/12/18 16:00 83 03/12/18 16:00 Mechanical Ventilator 03/12/18 16:00 30 03/12/18 15:15 82 19 25 03/12/18 15:00 93 29 143/68 (93) 100 I&O Intake and Output 03/12/18 03/13/18 19:00 07:00 Intake Total 2660 ml 1525 ml Output Total 1020 ml 665 ml Balance 1640 ml 860 ml Intake Free Water 240 ml 90 ml IV Total 1970 ml 1005 ml Tube Feeding 150 ml 330 ml Other 300 ml 100 ml Output Urine Total 1020 ml 665 ml # Bowel Movements 4 3 Dressing: saturated Wound: clean, intact, other Drains: other Cardiovascular: RSR Respiratory: clear Abdomen: soft, present bowel sounds Extremities: other Laboratory Tests Test 03/13/18 04:00 White Blood Count 10.3 K/UL (4.8-10.8) Red Blood Count 3.14 M/UL (4.20-5.40) L Hemoglobin 8.8 G/DL (12.0-16.0) L Hematocrit 26.3 % (37.0-47.0) L Mean Corpuscular Volume 84 FL (80-99) Mean Corpuscular Hemoglobin 28.2 PG (27.0-31.0) Mean Corpuscular Hemoglobin Concent 33.6 G/DL (32.0-36.0) Red Cell Distribution Width 13.4 % (11.6-14.8) Platelet Count 156 K/UL (150-450) Mean Platelet Volume 9.2 FL (6.5-10.1) Neutrophils (%) (Auto) 75.3 % (45.0-75.0) H Lymphocytes (%) (Auto) 12.5 % (20.0-45.0) L Monocytes (%) (Auto) 8.5 % (1.0-10.0) Eosinophils (%) (Auto) 2.9 % (0.0-3.0) Basophils (%) (Auto) 0.8 % (0.0-2.0) Sodium Level 150 MMOL/L (136-145) H Potassium Level 3.1 MMOL/L (3.5-5.1) L Chloride Level 119 MMOL/L (98-107) H Carbon Dioxide Level 18 MMOL/L (21-32) L Anion Gap 13 mmol/L (5-15) Blood Urea Nitrogen 67 mg/dL (7-18) H Creatinine 2.6 MG/DL (0.55-1.30) H Estimat Glomerular Filtration Rate mL/min (>60) Glucose Level 174 MG/DL (74-106) H Uric Acid 7.5 MG/DL (2.6-7.2) H Calcium Level 7.8 MG/DL (8.5-10.1) L Phosphorus Level 2.3 MG/DL (2.5-4.9) L Magnesium Level 2.1 MG/DL (1.8-2.4) Total Bilirubin 0.3 MG/DL (0.2-1.0) Gamma Glutamyl Transpeptidase 100 U/L (5-85) H Aspartate Amino Transf (AST/SGOT) 27 U/L (15-37) Alanine Aminotransferase (ALT/SGPT) 38 U/L (12-78) Alkaline Phosphatase 110 U/L (46-116) Total Creatine Kinase 56 U/L (26-308) Troponin I 0.065 ng/mL (0.000-0.056) C-Reactive Protein, Quantitative 11.5 mg/dL (0.00-0.90) H Pro-B-Type Natriuretic Peptide 7235 pg/mL (0-125) H Total Protein 5.6 G/DL (6.4-8.2) L Albumin 2.0 G/DL (3.4-5.0) L Globulin 3.6 g/dL Albumin/Globulin Ratio 0.6 (1.0-2.7) L Plan Problems: (1) Abnormal LFTs Assessment & Plan: likely shock liver from overt sepsis. labs improving abdominal ultrasound reviewed recovering / resolved (2) Decubitus ulcer of sacral region, unstageable Assessment & Plan: full thickness pressure injury (L)4cm x(W)3.4cm with approx 80% yellow slough ,otherwise pink ,(+) maceration.Hyperpigmentation periwound bordered by darker skin tone. DTPI noted to L heel oozing small amt serosanguineous exudate (L)6cm x (W)9cm.Wound bed fluctuant.DTPI noted to medial R heel (L)2cm x (W)2.5cm dry area noted along border but wound is fluctuant centrally. present upon admission. will be cared for during hospital stay will plan for debridement once stable unlikely etiology of leukocytosis wound improving since admission Tx.Plan: Cleanse sacral wound with Saline.Apply Therahoney gel .Apply Cavilon to borders .Cover with Optifoam drsg Daily and prn. Apply Cavilon wipe to R and L heels. Cover with Biatain drsg.Change prn. Reposition at least every 2hours or as tolerated. Off-load heels with pillow. (3) Severe sepsis Jean Marie Park Mar 13, 2018 14:10
--- NOTE | 2018-03-13 15:02 | Pulmonolgy Critical Care Note ---
Critical Care - Asmt/Plan Problems: (1) skilled nursing resident (2) Anemia (3) PEG (percutaneous endoscopic gastrostomy) status (4) Seizure disorder (5) CKD (chronic kidney disease) (6) MARK (acute kidney injury) (7) Severe sepsis (8) UTI (urinary tract infection) (9) Respiratory failure (10) NSTEMI (non-ST elevated myocardial infarction) Assessment/Plan: ASSESSMENT: * SIRS/SEPSIS * Shock, likely septic * VDRF * MSOF * MARK on CKD * Abnormal LFT's - IMPROVED * NSTEMI, likely demand ischemia * Mild PVC on CXR & elevated BNP but clinically appears dry * ? ADHF * Sz DO * NHR * Bedbound @ baseline * Anemia * S/P GT PLAN: * CPAP PS 8/5 ---> ABG in 30 min ---> possible extubation later * PRN HHN's * Off NE * Monitor volumes and renal function * GT BICITRA per renal * F/U renal recs, replete electrolytes and free water * Trend ECG/trop, F/U cards recs * Vanco, Elías, Linda per ID * Hold GTF's for possible extubation * Continue HEP SQ, F/U HIT Ab panel * Continue AED's * FC * CCT 45 Critical Care - Objective Last 24 Hour Vital Signs Date Time Temp Pulse Resp B/P (MAP) Pulse Ox O2 Delivery O2 Flow Rate FiO2 03/13/18 14:00 89 18 153/53 (86) 100 03/13/18 13:00 99 03/13/18 13:00 75 20 30 03/13/18 13:00 85 21 Mechanical Ventilator 15.0 30 03/13/18 13:00 84 18 153/52 (85) 100 03/13/18 12:41 135/48 03/13/18 12:00 92 03/13/18 12:00 98.8 94 20 135/48 (77) 100 03/13/18 12:00 30 03/13/18 12:00 Mechanical Ventilator 03/13/18 11:00 76 20 142/48 (79) 100 03/13/18 10:30 75 20 30 03/13/18 10:00 84 22 161/54 (89) 100 03/13/18 10:00 85 23 161/54 (89) 100 10/30/18 09:00 86 29 163/59 (93) 100 03/13/18 09:00 30 03/13/18 08:57 98.9 03/13/18 08:55 86 24 30 03/13/18 08:27 81 148/72 03/13/18 08:00 Mechanical Ventilator 03/13/18 08:00 30 03/13/18 08:00 99.5 88 20 148/72 (97) 100 03/13/18 08:00 85 03/13/18 07:00 97 21 160/103 (122) 100 03/13/18 06:56 93 19 30 03/13/18 06:00 101 19 157/67 (97) 100 03/13/18 05:10 93 20 30 03/13/18 05:00 99 19 167/64 (98) 100 03/13/18 04:00 91 03/13/18 04:00 Mechanical Ventilator 03/13/18 04:00 30 03/13/18 04:00 98.3 90 19 158/63 (94) 100 03/13/18 03:13 90 19 30 03/13/18 03:00 92 19 158/56 (90) 100 03/13/18 02:00 89 19 169/83 (111) 100 03/13/18 01:00 95 20 173/77 (109) 100 03/13/18 00:59 94 19 30 03/13/18 00:00 95 03/13/18 00:00 Mechanical Ventilator 03/13/18 00:00 98.0 94 20 179/85 (116) 100 03/13/18 00:00 30 03/12/18 23:07 86 18 30 03/12/18 23:00 87 21 160/73 (102) 100 03/12/18 22:00 82 21 173/85 (114) 100 03/12/18 21:00 82 21 173/84 (113) 100 03/12/18 20:44 84 19 30 03/12/18 20:30 152/66 03/12/18 20:00 82 03/12/18 20:00 98.3 85 21 168/93 (118) 100 03/12/18 20:00 Mechanical Ventilator 03/12/18 20:00 30 03/12/18 19:00 86 20 168/92 (117) 100 03/12/18 18:59 85 22 30 03/12/18 18:00 85 21 159/92 (114) 100 03/12/18 17:07 81 20 25 03/12/18 17:00 82 22 175/68 (103) 100 03/12/18 16:00 82 22 153/87 (109) 100 03/12/18 16:00 83 03/12/18 16:00 Mechanical Ventilator 03/12/18 16:00 30 03/12/18 15:15 82 19 25 03/12/18 15:00 93 29 143/68 (93) 100 Status: sedated, other - intubated, arousable Condition: improving HEENT: atraumatic, normocephalic Lungs: rhonchi Heart: HR/BP stable Abdomen: soft, non-tender, active bowel sounds Extremities: no C/C/E Decubiti: location - sacrum, stage - 4 Micro: Microbiology Date/Time Source Procedure Growth Status 03/12/18 22:45 Stool Clostridium difficile Toxin Assay - Final Complete Accucheck: 243 Critical Care - Subjective ROS Limited/Unobtainable: Yes ICU Day: 6 Intubation Day: 6 Interval Events: Jessica SBT but became lethergic so placed back on AC CR better Na 150 Condition: improving IV Access: PICC EKG Rhythm: Sinus Rhythm FI02: 30 Vent Support Breath Rate: 0 Vent Support Mode: CPAP Vent Tidal Volume: 550 Sputum Amount: Small PEEP: 5.0 PIP: 12 Fluids: [id number] Drips: N/A Tube Feeding Amount: 30 Residuals: 0 I&O: Intake and Output 03/12/18 03/13/18 19:00 07:00 Intake Total 2660 ml 1525 ml Output Total 1020 ml 665 ml Balance 1640 ml 860 ml Intake Free Water 240 ml 90 ml IV Total 1970 ml 1005 ml Tube Feeding 150 ml 330 ml Other 300 ml 100 ml Output Urine Total 1020 ml 665 ml # Bowel Movements 4 3 Subjective: KARRIE ET-Tube: 7.5 ET Position: 23 Labs: Laboratory Tests Test 03/13/18 04:00 White Blood Count 10.3 K/UL (4.8-10.8) Red Blood Count 3.14 M/UL (4.20-5.40) L Hemoglobin 8.8 G/DL (12.0-16.0) L Hematocrit 26.3 % (37.0-47.0) L Mean Corpuscular Volume 84 FL (80-99) Mean Corpuscular Hemoglobin 28.2 PG (27.0-31.0) Mean Corpuscular Hemoglobin Concent 33.6 G/DL (32.0-36.0) Red Cell Distribution Width 13.4 % (11.6-14.8) Platelet Count 156 K/UL (150-450) Mean Platelet Volume 9.2 FL (6.5-10.1) Neutrophils (%) (Auto) 75.3 % (45.0-75.0) H Lymphocytes (%) (Auto) 12.5 % (20.0-45.0) L Monocytes (%) (Auto) 8.5 % (1.0-10.0) Eosinophils (%) (Auto) 2.9 % (0.0-3.0) Basophils (%) (Auto) 0.8 % (0.0-2.0) Sodium Level 150 MMOL/L (136-145) H Potassium Level 3.1 MMOL/L (3.5-5.1) L Chloride Level 119 MMOL/L (98-107) H Carbon Dioxide Level 18 MMOL/L (21-32) L Anion Gap 13 mmol/L (5-15) Blood Urea Nitrogen 67 mg/dL (7-18) H Creatinine 2.6 MG/DL (0.55-1.30) H Estimat Glomerular Filtration Rate mL/min (>60) Glucose Level 174 MG/DL (74-106) H Uric Acid 7.5 MG/DL (2.6-7.2) H Calcium Level 7.8 MG/DL (8.5-10.1) L Phosphorus Level 2.3 MG/DL (2.5-4.9) L Magnesium Level 2.1 MG/DL (1.8-2.4) Total Bilirubin 0.3 MG/DL (0.2-1.0) Gamma Glutamyl Transpeptidase 100 U/L (5-85) H Aspartate Amino Transf (AST/SGOT) 27 U/L (15-37) Alanine Aminotransferase (ALT/SGPT) 38 U/L (12-78) Alkaline Phosphatase 110 U/L (46-116) Total Creatine Kinase 56 U/L (26-308) Troponin I 0.065 ng/mL (0.000-0.056) C-Reactive Protein, Quantitative 11.5 mg/dL (0.00-0.90) H Pro-B-Type Natriuretic Peptide 7235 pg/mL (0-125) H Total Protein 5.6 G/DL (6.4-8.2) L Albumin 2.0 G/DL (3.4-5.0) L Globulin 3.6 g/dL Albumin/Globulin Ratio 0.6 (1.0-2.7) L Javon Gan MD Mar 13, 2018 15:02
--- NOTE | 2018-03-13 15:22 | Diagnostic Imaging Report ---
Indication: buttermaker continuous churn venous access Findings: After the indications, procedure, risks, complications, and alternatives of the procedure were explained, written informed consent was obtained. The left upper extremity was prepped with alcohol. All elements of maximal sterile barrier technique were followed including usage of a cap, mask, sterile gown, sterile gloves, hand hygiene and a large sterile sheet. Sonographic evaluation of the upper extremity was performed demonstrating a patent and compressible basilic vein. Access was obtained under real-time ultrasound guidance (with utilization of sterile gel and sterile probe cover) and digital image was saved and archived. An .018 wire was introduced. Needle exchanged for a 5 Setswana peel-away sheath. Measurements were obtained. A 5 Setswana dual-lumen Power PICC line catheter was cut to 40 cm and introduced over the wire. Peel-away sheath and wire were removed.Catheter was secured to the skin using 2-0 Prolene suture. Both ports aspirate and flush easily. Post procedure chest x-ray demonstrates good position of the PICC line catheter within the SVC. Impression: Successful placement of an upper extremity PICC line catheter
--- NOTE | 2018-03-13 15:27 | General Progress Note ---
Assessment/Plan Assessment/Plan # Anemia of chronic disease -- baseline appears to be 11-12 reviewed labs from 2012 --> at this time decreased, anemia panel has been reviewed and acid --> transfuse as needed, hgb goal >7 --> no evidence of hemolysis noted --> Blood tx: 03/10, # Leukocytosis likely related to septic shock --> Remains elevated --> on abx and ivf --> appreciate ID recs and workup # Thrombocytopenia likely related to infection, appears baseline 100-150k --> imaging has been reviewed --> medications have been reviewed --> hepatitis panel reviewed from before # Abnormal LFTs --> Currently has normalized. --> likely shock liver from overt sepsis. --> trend labs # Decubitus ulcer of sacral region, unstageable, 5cm x 4cm unstagable sacral decubitus ulcer, no drainage, mild periedge edema/erythema, soft, no odor present upon admission. will be cared for during hospital sta # Severe sepsis --> on abx as per ID # Respiratory failure. Intubated. --> as per pulm Greatly appreciate consultation! Subjective Hematologic/Lymphatic: Reports: anemia; Denies: no symptoms, easy bleeding, easy bruising, other Allergies: Coded Allergies: PENICILLINS (Unverified Allergy, Mild, 12/04/12) Subjective Pt remains in ICU. Remains intubated. H/H stable. On abx. Objective Last 24 Hour Vital Signs Date Time Temp Pulse Resp B/P (MAP) Pulse Ox O2 Delivery O2 Flow Rate FiO2 03/13/18 15:00 102 21 179/73 (108) 100 03/13/18 14:50 87 18 30 03/13/18 14:00 89 18 153/53 (86) 100 03/13/18 13:00 99 03/13/18 13:00 75 20 30 03/13/18 13:00 85 21 Mechanical Ventilator 15.0 30 03/13/18 13:00 84 18 153/52 (85) 100 03/13/18 12:41 135/48 03/13/18 12:00 92 03/13/18 12:00 98.8 94 20 135/48 (77) 100 03/13/18 12:00 30 03/13/18 12:00 Mechanical Ventilator 03/13/18 11:00 76 20 142/48 (79) 100 03/13/18 10:30 75 20 30 03/13/18 10:00 84 22 161/54 (89) 100 03/13/18 10:00 85 23 161/54 (89) 100 03/13/18 09:00 86 29 163/59 (93) 100 03/13/18 09:00 30 03/13/18 08:57 98.9 03/13/18 08:55 86 24 30 03/13/18 08:27 81 148/72 03/13/18 08:00 Mechanical Ventilator 03/13/18 08:00 30 03/13/18 08:00 99.5 88 20 148/72 (97) 100 03/13/18 08:00 85 03/13/18 07:00 97 21 160/103 (122) 100 03/13/18 06:56 93 19 30 03/13/18 06:00 101 19 157/67 (97) 100 03/13/18 05:10 93 20 30 03/13/18 05:00 99 19 167/64 (98) 100 03/13/18 04:00 91 03/13/18 04:00 Mechanical Ventilator 03/13/18 04:00 30 03/13/18 04:00 98.3 90 19 158/63 (94) 100 03/13/18 03:13 90 19 30 03/13/18 03:00 92 19 158/56 (90) 100 03/13/18 02:00 89 19 169/83 (111) 100 03/13/18 01:00 95 20 173/77 (109) 100 03/13/18 00:59 94 19 30 03/13/18 00:00 95 03/13/18 00:00 Mechanical Ventilator 03/13/18 00:00 98.0 94 20 179/85 (116) 100 03/13/18 00:00 30 03/12/18 23:07 86 18 30 03/12/18 23:00 87 21 160/73 (102) 100 03/12/18 22:00 82 21 173/85 (114) 100 03/12/18 21:00 82 21 173/84 (113) 100 03/12/18 20:44 84 19 30 03/12/18 20:30 152/66 03/12/18 20:00 82 03/12/18 20:00 98.3 85 21 168/93 (118) 100 03/12/18 20:00 Mechanical Ventilator 03/12/18 20:00 30 03/12/18 19:00 86 20 168/92 (117) 100 03/12/18 18:59 85 22 30 03/12/18 18:00 85 21 159/92 (114) 100 03/12/18 17:07 81 20 25 03/12/18 17:00 82 22 175/68 (103) 100 03/12/18 16:00 82 22 153/87 (109) 100 03/12/18 16:00 83 03/12/18 16:00 Mechanical Ventilator 03/12/18 16:00 30 Intake and Output 03/12/18 03/13/18 19:00 07:00 Intake Total 2660 ml 1525 ml Output Total 1020 ml 665 ml Balance 1640 ml 860 ml Intake Free Water 240 ml 90 ml IV Total 1970 ml 1005 ml Tube Feeding 150 ml 330 ml Other 300 ml 100 ml Output Urine Total 1020 ml 665 ml # Bowel Movements 4 3 Laboratory Tests 03/13/18 04:00: White Blood Count 10.3, Red Blood Count 3.14L, Hemoglobin 8.8L, Hematocrit 26.3L , Mean Corpuscular Volume 84, Mean Corpuscular Hemoglobin 28.2, Mean Corpuscular Hemoglobin Concent 33.6, Red Cell Distribution Width 13.4, Platelet Count 156, Mean Platelet Volume 9.2, Neutrophils (%) (Auto) 75.3H, Lymphocytes ( %) (Auto) 12.5L, Monocytes (%) (Auto) 8.5, Eosinophils (%) (Auto) 2.9, Basophils (%) (Auto) 0.8, Sodium Level 150H, Potassium Level 3.1L, Chloride Level 119H, Carbon Dioxide Level 18L, Anion Gap 13, Blood Urea Nitrogen 67H, Creatinine 2.6H, Estimat Glomerular Filtration Rate , Glucose Level 174H, Uric Acid 7.5H, Calcium Level 7.8L, Phosphorus Level 2.3L, Magnesium Level 2.1, Total Bilirubin 0.3, Gamma Glutamyl Transpeptidase 100H, Aspartate Amino Transf (AST/SGOT) 27, Alanine Aminotransferase (ALT/SGPT) 38, Alkaline Phosphatase 110 , Total Creatine Kinase 56, Troponin I 0.065H, C-Reactive Protein, Quantitative 11.5H, Pro-B-Type Natriuretic Peptide 7235H, Total Protein 5.6L, Albumin 2.0L, Globulin 3.6, Albumin/Globulin Ratio 0.6L Height (Feet): 5 Height (Inches): 10.00 Weight (Pounds): 185 General Appearance: no apparent distress EENT: TMs normal Neck: supple Cardiovascular: regular rhythm Respiratory/Chest: lungs clear Abdomen: non tender Extremities: non-tender Edema: mild edema Neurologic: oriented x 3 Skin: normal pigmentation Objective trach, Aleksandr Malloy MD Mar 13, 2018 15:27
[2018-03-13] MEDS ORDERED: Albuterol/Ipratropium 3ml neb HHN PRN (16:30)
--- NOTE | 2018-03-13 19:58 | Cardiology Progress Note ---
Assessment/Plan Assessment/Plan 1. Septic shock, continue D5W, 2D echocardiography with normal LV systolic function with normal intracardiac filling pressures. 2. Atrial fibrillation with rapid ventricular response, converted to SR, continue the current regimen. 3. History of hypertension, continue amlodipine. 4. History of diabetes mellitus. Subjective Subjective Sinus rhythm at rate of 83. Extubated on NC O2. Objective Last 24 Hour Vital Signs Date Time Temp Pulse Resp B/P (MAP) Pulse Ox O2 Delivery O2 Flow Rate FiO2 03/13/18 19:03 71 24 Nasal Cannula 2.0 28 03/13/18 19:02 Nasal Cannula 2.0 28 03/13/18 19:02 100 Nasal Cannula 2.0 28 03/13/18 19:00 78 36 145/47 (79) 100 03/13/18 18:00 85 27 131/64 (86) 100 03/13/18 17:24 83 161/59 03/13/18 17:19 83 21 100 Nasal Cannula 3.0 32 03/13/18 17:10 81 22 100 Nasal Cannula 3.0 32 03/13/18 17:10 32 03/13/18 17:00 80 20 161/59 (93) 100 03/13/18 16:40 Nasal Cannula 3.0 32 03/13/18 16:00 80 03/13/18 16:00 30 03/13/18 16:00 Mechanical Ventilator 03/13/18 16:00 97.6 89 20 160/62 (94) 100 03/13/18 15:00 102 21 179/73 (108) 100 03/13/18 14:50 87 18 30 03/13/18 14:00 89 18 153/53 (86) 100 03/13/18 13:00 99 03/13/18 13:00 75 20 30 03/13/18 13:00 85 21 Mechanical Ventilator 15.0 30 03/13/18 13:00 84 18 153/52 (85) 100 03/13/18 12:41 135/48 03/13/18 12:00 92 03/13/18 12:00 98.8 94 20 135/48 (77) 100 03/13/18 12:00 30 03/13/18 12:00 Mechanical Ventilator 03/13/18 11:00 76 20 142/48 (79) 100 03/13/18 10:30 75 20 30 03/13/18 10:00 84 22 161/54 (89) 100 03/13/18 10:00 85 23 161/54 (89) 100 03/13/18 09:00 86 29 163/59 (93) 100 03/13/18 09:00 30 03/13/18 08:57 98.9 03/13/18 08:55 86 24 30 03/13/18 08:27 81 148/72 03/13/18 08:00 Mechanical Ventilator 03/13/18 08:00 30 03/13/18 08:00 99.5 88 20 148/72 (97) 100 03/13/18 08:00 85 03/13/18 07:00 97 21 160/103 (122) 100 03/13/18 06:56 93 19 30 03/13/18 06:00 101 19 157/67 (97) 100 03/13/18 05:10 93 20 30 03/13/18 05:00 99 19 167/64 (98) 100 03/13/18 04:00 91 03/13/18 04:00 Mechanical Ventilator 03/13/18 04:00 30 03/13/18 04:00 98.3 90 19 158/63 (94) 100 03/13/18 03:13 90 19 30 03/13/18 03:00 92 19 158/56 (90) 100 03/13/18 02:00 89 19 169/83 (111) 100 03/13/18 01:00 95 20 173/77 (109) 100 03/13/18 00:59 94 19 30 03/13/18 00:00 95 03/13/18 00:00 Mechanical Ventilator 03/13/18 00:00 98.0 94 20 179/85 (116) 100 03/13/18 00:00 30 03/12/18 23:07 86 18 30 03/12/18 23:00 87 21 160/73 (102) 100 03/12/18 22:00 82 21 173/85 (114) 100 03/12/18 21:00 82 21 173/84 (113) 100 03/12/18 20:44 84 19 30 03/12/18 20:30 152/66 03/12/18 20:00 82 03/12/18 20:00 98.3 85 21 168/93 (118) 100 03/12/18 20:00 Mechanical Ventilator 03/12/18 20:00 30 Intake and Output 03/12/18 03/13/18 18:59 06:59 Intake Total 2595 ml 1725 ml Output Total 1100 ml 630 ml Balance 1495 ml 1095 ml Intake Free Water 270 ml 90 ml IV Total 1845 ml 1205 ml Tube Feeding 150 ml 330 ml Other 330 ml 100 ml Output Urine Total 1100 ml 630 ml # Bowel Movements 4 3 2D Echo: LVEF 55%, Mild LVH, Grade I LVDD, RVSP 20 mmHg Laboratory Tests Test 03/13/18 04:00 03/13/18 15:45 White Blood Count 10.3 K/UL (4.8-10.8) Red Blood Count 3.14 M/UL (4.20-5.40) L Hemoglobin 8.8 G/DL (12.0-16.0) L Hematocrit 26.3 % (37.0-47.0) L Mean Corpuscular Volume 84 FL (80-99) Mean Corpuscular Hemoglobin 28.2 PG (27.0-31.0) Mean Corpuscular Hemoglobin Concent 33.6 G/DL (32.0-36.0) Red Cell Distribution Width 13.4 % (11.6-14.8) Platelet Count 156 K/UL (150-450) Mean Platelet Volume 9.2 FL (6.5-10.1) Neutrophils (%) (Auto) 75.3 % (45.0-75.0) H Lymphocytes (%) (Auto) 12.5 % (20.0-45.0) L Monocytes (%) (Auto) 8.5 % (1.0-10.0) Eosinophils (%) (Auto) 2.9 % (0.0-3.0) Basophils (%) (Auto) 0.8 % (0.0-2.0) Sodium Level 150 MMOL/L (136-145) H Potassium Level 3.1 MMOL/L (3.5-5.1) L Chloride Level 119 MMOL/L (98-107) H Carbon Dioxide Level 18 MMOL/L (21-32) L Anion Gap 13 mmol/L (5-15) Blood Urea Nitrogen 67 mg/dL (7-18) H Creatinine 2.6 MG/DL (0.55-1.30) H Estimat Glomerular Filtration Rate mL/min (>60) Glucose Level 174 MG/DL (74-106) H Uric Acid 7.5 MG/DL (2.6-7.2) H Calcium Level 7.8 MG/DL (8.5-10.1) L Phosphorus Level 2.3 MG/DL (2.5-4.9) L Magnesium Level 2.1 MG/DL (1.8-2.4) Total Bilirubin 0.3 MG/DL (0.2-1.0) Gamma Glutamyl Transpeptidase 100 U/L (5-85) H Aspartate Amino Transf (AST/SGOT) 27 U/L (15-37) Alanine Aminotransferase (ALT/SGPT) 38 U/L (12-78) Alkaline Phosphatase 110 U/L (46-116) Total Creatine Kinase 56 U/L (26-308) Troponin I 0.065 ng/mL (0.000-0.056) C-Reactive Protein, Quantitative 11.5 mg/dL (0.00-0.90) H Pro-B-Type Natriuretic Peptide 7235 pg/mL (0-125) H Total Protein 5.6 G/DL (6.4-8.2) L Albumin 2.0 G/DL (3.4-5.0) L Globulin 3.6 g/dL Albumin/Globulin Ratio 0.6 (1.0-2.7) L Arterial Blood pH 7.416 (7.350-7.450) Arterial Blood Partial Pressure CO2 24.8 mmHg (35.0-45.0) *L Arterial Blood Partial Pressure O2 133.5 mmHg (75.0-100.0) H Arterial Blood HCO3 15.6 mmol/L (22.0-26.0) *L Arterial Blood Oxygen Saturation 98.2 % (95-100) Arterial Blood Base Excess -7.8 (-2-2) L Michael Test Positive Microbiology Date/Time Source Procedure Growth Status 03/12/18 22:45 Stool Clostridium difficile Toxin Assay - Final Complete Objective HEENT: Atraumatic and normocephalic. Anicteric. Pupils are equal, round, and reactive to light and accommodation. Extraocular muscles intact. NECK: JVP less than 5 cm. No carotid bruits. Carotid upstrokes 2+ bilaterally. CARDIOVASCULAR SYSTEM: Normal S1, S2. Regular rhythm. No murmurs, gallops, or rubs. LUNGS: Diminished breath sounds in both bases. ABDOMEN: Soft, nontender, and nondistended. No hepatosplenomegaly. Positive G-tube in place. EXTREMITIES: No evidence of edema, clubbing, or cyanosis. Everett Tomas MD Mar 13, 2018 19:58
[2018-03-13] MEDS: Dyna-Hex 2% Top Sol 2oz TOPIC SCH (20:07)
--- NOTE | 2018-03-13 20:57 | General Progress Note ---
Assessment/Plan Problem List: (1) CKD (chronic kidney disease) ICD Codes: N18.9 - Chronic kidney disease, unspecified SNOMED: 987363540 (2) MARK (acute kidney injury) ICD Codes: N17.9 - Acute kidney failure, unspecified SNOMED: 53718401 (3) Sepsis ICD Codes: A41.9 - Sepsis, unspecified organism SNOMED: 27217112 (4) Abnormal LFTs ICD Codes: R94.5 - Abnormal results of liver function studies SNOMED: 100322028 (5) Decubitus ulcer of sacral region, unstageable ICD Codes: L89.150 - Pressure ulcer of sacral region, unstageable SNOMED: 105641567, 635578990 (6) Hyperglycemia ICD Codes: R73.9 - Hyperglycemia, unspecified; N18.9 - Chronic kidney disease, unspecified SNOMED: 29589111 (7) Metabolic acidosis ICD Codes: E87.2 - Acidosis; N18.9 - Chronic kidney disease, unspecified SNOMED: 96183581 (8) Renal failure (ARF), acute on chronic ICD Codes: N17.9 - Acute kidney failure, unspecified; N18.9 - Chronic kidney disease, unspecified SNOMED: 371558138 Qualifiers: Qualified Codes: N17.9 - Acute kidney failure, unspecified; N18.4 - Chronic kidney disease, stage 4 (severe) (9) Anemia ICD Codes: D64.9 - Anemia, unspecified SNOMED: 500445916 Qualifiers: Qualified Codes: D64.9 - Anemia, unspecified (10) Respiratory failure ICD Codes: J96.90 - Respiratory failure, unspecified, unspecified whether with hypoxia or hypercapnia SNOMED: 727939352 Qualifiers: Qualified Codes: J96.00 - Acute respiratory failure, unspecified whether with hypoxia or hypercapnia (11) UTI (urinary tract infection) ICD Codes: N39.0 - Urinary tract infection, site not specified SNOMED: 88100205 Qualifiers: Qualified Codes: T83.511A - Infection and inflammatory reaction due to indwelling urethral catheter, initial encounter; N39.0 - Urinary tract infection , site not specified (12) NSTEMI (non-ST elevated myocardial infarction) ICD Codes: I21.4 - Non-ST elevation (NSTEMI) myocardial infarction SNOMED: 055788426 (13) Severe sepsis ICD Codes: A41.9 - Sepsis, unspecified organism; R65.20 - Severe sepsis without septic shock SNOMED: 41944942 (14) Encephalopathy due to metabolic factor or toxin SNOMED: 014974670 Status: unchanged Assessment/Plan resp failure sepsis pna azotemia hypokalemia is improving reviewed chart and labs ARF Subjective ROS Limited/Unobtainable: Yes Allergies: Coded Allergies: PENICILLINS (Unverified Allergy, Mild, 12/04/12) Objective Last 24 Hour Vital Signs Date Time Temp Pulse Resp B/P (MAP) Pulse Ox O2 Delivery O2 Flow Rate FiO2 03/13/18 19:03 71 24 Nasal Cannula 2.0 28 03/13/18 19:02 Nasal Cannula 2.0 28 03/13/18 19:02 100 Nasal Cannula 2.0 28 03/13/18 19:00 78 36 145/47 (79) 100 03/13/18 18:00 85 27 131/64 (86) 100 03/13/18 17:24 83 161/59 03/13/18 17:19 83 21 100 Nasal Cannula 3.0 32 03/13/18 17:10 81 22 100 Nasal Cannula 3.0 32 03/13/18 17:10 32 03/13/18 17:00 80 20 161/59 (93) 100 03/13/18 16:40 Nasal Cannula 3.0 32 03/13/18 16:00 80 03/13/18 16:00 30 03/13/18 16:00 Mechanical Ventilator 03/13/18 16:00 97.6 89 20 160/62 (94) 100 03/13/18 15:00 102 21 179/73 (108) 100 03/13/18 14:50 87 18 30 03/13/18 14:00 89 18 153/53 (86) 100 03/13/18 13:00 99 03/13/18 13:00 75 20 30 03/13/18 13:00 85 21 Mechanical Ventilator 15.0 30 03/13/18 13:00 84 18 153/52 (85) 100 03/13/18 12:41 135/48 03/13/18 12:00 92 03/13/18 12:00 98.8 94 20 135/48 (77) 100 03/13/18 12:00 30 03/13/18 12:00 Mechanical Ventilator 03/13/18 11:00 76 20 142/48 (79) 100 03/13/18 10:30 75 20 30 03/13/18 10:00 84 22 161/54 (89) 100 03/13/18 10:00 85 23 161/54 (89) 100 03/13/18 09:00 86 29 163/59 (93) 100 03/13/18 09:00 30 03/13/18 08:57 98.9 03/13/18 08:55 86 24 30 03/13/18 08:27 81 148/72 03/13/18 08:00 Mechanical Ventilator 03/13/18 08:00 30 03/13/18 08:00 99.5 88 20 148/72 (97) 100 03/13/18 08:00 85 03/13/18 07:00 97 21 160/103 (122) 100 03/13/18 06:56 93 19 30 03/13/18 06:00 101 19 157/67 (97) 100 03/13/18 05:10 93 20 30 03/13/18 05:00 99 19 167/64 (98) 100 03/13/18 04:00 91 03/13/18 04:00 Mechanical Ventilator 03/13/18 04:00 30 03/13/18 04:00 98.3 90 19 158/63 (94) 100 03/13/18 03:13 90 19 30 03/13/18 03:00 92 19 158/56 (90) 100 03/13/18 02:00 89 19 169/83 (111) 100 03/13/18 01:00 95 20 173/77 (109) 100 03/13/18 00:59 94 19 30 03/13/18 00:00 95 03/13/18 00:00 Mechanical Ventilator 03/13/18 00:00 98.0 94 20 179/85 (116) 100 03/13/18 00:00 30 03/12/18 23:07 86 18 30 03/12/18 23:00 87 21 160/73 (102) 100 03/12/18 22:00 82 21 173/85 (114) 100 03/12/18 21:00 82 21 173/84 (113) 100 Intake and Output 03/12/18 03/13/18 19:00 07:00 Intake Total 2660 ml 1525 ml Output Total 1020 ml 665 ml Balance 1640 ml 860 ml Intake Free Water 240 ml 90 ml IV Total 1970 ml 1005 ml Tube Feeding 150 ml 330 ml Other 300 ml 100 ml Output Urine Total 1020 ml 665 ml # Bowel Movements 4 3 Laboratory Tests 03/13/18 04:00: White Blood Count 10.3, Red Blood Count 3.14L, Hemoglobin 8.8L, Hematocrit 26.3L , Mean Corpuscular Volume 84, Mean Corpuscular Hemoglobin 28.2, Mean Corpuscular Hemoglobin Concent 33.6, Red Cell Distribution Width 13.4, Platelet Count 156, Mean Platelet Volume 9.2, Neutrophils (%) (Auto) 75.3H, Lymphocytes ( %) (Auto) 12.5L, Monocytes (%) (Auto) 8.5, Eosinophils (%) (Auto) 2.9, Basophils (%) (Auto) 0.8, Sodium Level 150H, Potassium Level 3.1L, Chloride Level 119H, Carbon Dioxide Level 18L, Anion Gap 13, Blood Urea Nitrogen 67H, Creatinine 2.6H, Estimat Glomerular Filtration Rate , Glucose Level 174H, Uric Acid 7.5H, Calcium Level 7.8L, Phosphorus Level 2.3L, Magnesium Level 2.1, Total Bilirubin 0.3, Gamma Glutamyl Transpeptidase 100H, Aspartate Amino Transf (AST/SGOT) 27, Alanine Aminotransferase (ALT/SGPT) 38, Alkaline Phosphatase 110 , Total Creatine Kinase 56, Troponin I 0.065H, C-Reactive Protein, Quantitative 11.5H, Pro-B-Type Natriuretic Peptide 7235H, Total Protein 5.6L, Albumin 2.0L, Globulin 3.6, Albumin/Globulin Ratio 0.6L 03/13/18 15:45: Arterial Blood pH 7.416, Arterial Blood Partial Pressure CO2 24.8*L, Arterial Blood Partial Pressure O2 133.5H, Arterial Blood HCO3 15.6*L, Arterial Blood Oxygen Saturation 98.2, Arterial Blood Base Excess -7.8L, Michael Test Positive Height (Feet): 5 Height (Inches): 10.00 Weight (Pounds): 185 Neck: supple Cardiovascular: normal rate Respiratory/Chest: lungs clear Abdomen: soft Krzysztof Schneider MD Mar 13, 2018 20:57
--- NOTE | 2018-03-13 22:56 | General Progress Note ---
Assessment/Plan Problem List: (1) Seizure disorder ICD Codes: G40.909 - Epilepsy, unspecified, not intractable, without status epilepticus SNOMED: 429337655 (2) Encephalopathy due to metabolic factor or toxin SNOMED: 608130424 Status: unchanged Assessment/Plan (1) Seizure disorder ICD Codes: G40.909 - Epilepsy, unspecified, not intractable, without status epilepticus SNOMED: 322019052 (2) Encephalopathy due to metabolic factor or toxin SNOMED: 384302460 Status: unchanged Assessment/Plan seroquel prn Subjective Date patient seen: Mar 13, 2018 Neurologic/Psychiatric: Reports: anxiety Allergies: Coded Allergies: PENICILLINS (Unverified Allergy, Mild, 12/04/12) Objective Last 24 Hour Vital Signs Date Time Temp Pulse Resp B/P (MAP) Pulse Ox O2 Delivery O2 Flow Rate FiO2 03/13/18 22:00 80 22 144/45 (78) 100 03/13/18 21:00 78 24 147/48 (81) 100 03/13/18 20:00 Mechanical Ventilator 03/13/18 20:00 98.9 76 26 143/49 (80) 100 03/13/18 19:03 71 24 Nasal Cannula 2.0 28 03/13/18 19:02 Nasal Cannula 2.0 28 03/13/18 19:02 100 Nasal Cannula 2.0 28 03/13/18 19:00 78 36 145/47 (79) 100 03/13/18 18:00 85 27 131/64 (86) 100 03/13/18 17:24 83 161/59 03/13/18 17:19 83 21 100 Nasal Cannula 3.0 32 03/13/18 17:10 81 22 100 Nasal Cannula 3.0 32 03/13/18 17:10 32 03/13/18 17:00 80 20 161/59 (93) 100 03/13/18 16:40 Nasal Cannula 3.0 32 03/13/18 16:00 80 03/13/18 16:00 30 03/13/18 16:00 Mechanical Ventilator 03/13/18 16:00 97.6 89 20 160/62 (94) 100 03/13/18 15:00 102 21 179/73 (108) 100 03/13/18 14:50 87 18 30 03/13/18 14:00 89 18 153/53 (86) 100 03/13/18 13:00 99 03/13/18 13:00 75 20 30 03/13/18 13:00 85 21 Mechanical Ventilator 15.0 30 03/13/18 13:00 84 18 153/52 (85) 100 03/13/18 12:41 135/48 03/13/18 12:00 92 03/13/18 12:00 98.8 94 20 135/48 (77) 100 03/13/18 12:00 30 03/13/18 12:00 Mechanical Ventilator 03/13/18 11:00 76 20 142/48 (79) 100 03/13/18 10:30 75 20 30 03/13/18 10:00 84 22 161/54 (89) 100 03/13/18 10:00 85 23 161/54 (89) 100 03/13/18 09:00 86 29 163/59 (93) 100 03/13/18 09:00 30 03/13/18 08:57 98.9 03/13/18 08:55 86 24 30 03/13/18 08:27 81 148/72 03/13/18 08:00 Mechanical Ventilator 03/13/18 08:00 30 03/13/18 08:00 99.5 88 20 148/72 (97) 100 03/13/18 08:00 85 03/13/18 07:00 97 21 160/103 (122) 100 03/13/18 06:56 93 19 30 03/13/18 06:00 101 19 157/67 (97) 100 03/13/18 05:10 93 20 30 03/13/18 05:00 99 19 167/64 (98) 100 03/13/18 04:00 91 03/13/18 04:00 Mechanical Ventilator 03/13/18 04:00 30 03/13/18 04:00 98.3 90 19 158/63 (94) 100 03/13/18 03:13 90 19 30 03/13/18 03:00 92 19 158/56 (90) 100 03/13/18 02:00 89 19 169/83 (111) 100 03/13/18 01:00 95 20 173/77 (109) 100 03/13/18 00:59 94 19 30 03/13/18 00:00 95 03/13/18 00:00 Mechanical Ventilator 03/13/18 00:00 98.0 94 20 179/85 (116) 100 03/13/18 00:00 30 03/12/18 23:07 86 18 30 03/12/18 23:00 87 21 160/73 (102) 100 Intake and Output 03/12/18 03/13/18 18:59 06:59 Intake Total 2595 ml 1725 ml Output Total 1100 ml 630 ml Balance 1495 ml 1095 ml Intake Free Water 270 ml 90 ml IV Total 1845 ml 1205 ml Tube Feeding 150 ml 330 ml Other 330 ml 100 ml Output Urine Total 1100 ml 630 ml # Bowel Movements 4 3 Laboratory Tests 03/13/18 04:00: White Blood Count 10.3, Red Blood Count 3.14L, Hemoglobin 8.8L, Hematocrit 26.3L , Mean Corpuscular Volume 84, Mean Corpuscular Hemoglobin 28.2, Mean Corpuscular Hemoglobin Concent 33.6, Red Cell Distribution Width 13.4, Platelet Count 156, Mean Platelet Volume 9.2, Neutrophils (%) (Auto) 75.3H, Lymphocytes ( %) (Auto) 12.5L, Monocytes (%) (Auto) 8.5, Eosinophils (%) (Auto) 2.9, Basophils (%) (Auto) 0.8, Sodium Level 150H, Potassium Level 3.1L, Chloride Level 119H, Carbon Dioxide Level 18L, Anion Gap 13, Blood Urea Nitrogen 67H, Creatinine 2.6H, Estimat Glomerular Filtration Rate , Glucose Level 174H, Uric Acid 7.5H, Calcium Level 7.8L, Phosphorus Level 2.3L, Magnesium Level 2.1, Total Bilirubin 0.3, Gamma Glutamyl Transpeptidase 100H, Aspartate Amino Transf (AST/SGOT) 27, Alanine Aminotransferase (ALT/SGPT) 38, Alkaline Phosphatase 110 , Total Creatine Kinase 56, Troponin I 0.065H, C-Reactive Protein, Quantitative 11.5H, Pro-B-Type Natriuretic Peptide 7235H, Total Protein 5.6L, Albumin 2.0L, Globulin 3.6, Albumin/Globulin Ratio 0.6L 03/13/18 15:45: Arterial Blood pH 7.416, Arterial Blood Partial Pressure CO2 24.8*L, Arterial Blood Partial Pressure O2 133.5H, Arterial Blood HCO3 15.6*L, Arterial Blood Oxygen Saturation 98.2, Arterial Blood Base Excess -7.8L, Michael Test Positive Height (Feet): 5 Height (Inches): 10.00 Weight (Pounds): 185 General Appearance: no apparent distress, lethargic, confused, agitated China Kidd MD Mar 13, 2018 22:56
[2018-03-14] VITALS (24 sets, daily range): BP systolic 135–174; BP diastolic 42–77
[2018-03-14] MEDS: NovoLOG Insulin Flexpen SUBQ SCH ×4 (05:25→23:48)
[2018-03-14] MEDS: Sodium Citrate 30ml NG SCH ×4 (05:25→23:47)
[2018-03-14 05:41] LABS: HEMATOCRIT 23.2 % (37.0-47.0); HEMOGLOBIN 7.6 G/DL (12.0-16.0); MEAN CORPUSCULAR VOLUME 84 FL (80-99); PLATELET COUNT 151 K/UL (150-450); RED BLOOD COUNT 2.77 M/UL (4.20-5.40); RED CELL DISTRIBUTION WIDTH 13.5 % (11.6-14.8)
[2018-03-14 06:08] LABS: ALANINE AMINOTRANSFERASE 37 U/L (12-78); ALBUMIN 1.7 G/DL (3.4-5.0); ALBUMIN/GLOBULIN RATIO 0.5 (1.0-2.7); ALKALINE PHOSPHATASE 107 U/L (46-116); ANION GAP 11 mmol/L (5-15); ASPARTATE AMINO TRANSFERASE 30 U/L (15-37); BILIRUBIN,TOTAL 0.3 MG/DL (0.2-1.0); BLOOD UREA NITROGEN 54 mg/dL (7-18); CARBON DIOXIDE 18 MMOL/L (21-32); CHLORIDE 118 MMOL/L (98-107); CREATININE 2.2 MG/DL (0.55-1.30); PHOSPHORUS 3.4 MG/DL (2.5-4.9); POTASSIUM 3.8 MMOL/L (3.5-5.1); SODIUM 147 MMOL/L (136-145)
[2018-03-14] MEDS: D5W w/KCl 20mEq 1,000 ML IV SCH ×2 (06:19→17:17)
--- NOTE | 2018-03-14 06:37 | General Progress Note ---
Assessment/Plan Assessment/Plan # Anemia of chronic disease -- baseline appears to be 11-12 reviewed labs from 2012 --> at this time decreased, anemia panel has been reviewed and acid --> transfuse as needed, hgb goal >7 --> no evidence of hemolysis noted --> Blood tx: 03/10 --> no evidence of anita bleeding --> monitor coagulopathy # Elevated PTT, coagulopathy --> recheck PTT, if still elevated, may be a factor deficiency --> check for factors that are in the extrinsic pathway # Leukocytosis likely related to septic shock --> Remains elevated --> on abx and ivf --> appreciate ID recs and workup # Thrombocytopenia likely related to infection, appears baseline 100-150k --> imaging has been reviewed --> medications have been reviewed --> hepatitis panel reviewed from before # Abnormal LFTs --> Currently has normalized. --> likely shock liver from overt sepsis. --> trend labs # Decubitus ulcer of sacral region, unstageable, 5cm x 4cm unstagable sacral decubitus ulcer, no drainage, mild periedge edema/erythema, soft, no odor present upon admission. will be cared for during hospital sta # Severe sepsis --> on abx as per ID # Respiratory failure. Intubated. --> as per pulm Greatly appreciate consultation! Subjective Allergies: Coded Allergies: PENICILLINS (Unverified Allergy, Mild, 12/04/12) Subjective Pt remains in ICU. Remains intubated. H/H stable. On abx. CLYDE picc flushing well. Objective Last 24 Hour Vital Signs Date Time Temp Pulse Resp B/P (MAP) Pulse Ox O2 Delivery O2 Flow Rate FiO2 03/14/18 05:00 89 18 153/65 (94) 100 03/14/18 04:00 Nasal Cannula 2.0 03/14/18 04:00 97.5 80 16 147/64 (91) 100 03/14/18 04:00 75 03/14/18 03:00 83 18 155/53 (87) 100 03/14/18 02:00 78 18 153/43 (79) 100 03/14/18 01:00 75 17 152/42 (78) 100 03/14/18 00:00 97.8 76 16 154/50 (84) 100 03/14/18 00:00 87 10/31/18 00:00 Mechanical Ventilator 03/13/18 23:00 78 17 136/44 (74) 100 03/13/18 22:00 80 22 144/45 (78) 100 03/13/18 21:00 78 24 147/48 (81) 100 03/13/18 20:00 Mechanical Ventilator 03/13/18 20:00 75 03/13/18 20:00 98.9 76 26 143/49 (80) 100 03/13/18 19:03 71 24 Nasal Cannula 2.0 28 03/13/18 19:02 Nasal Cannula 2.0 28 03/13/18 19:02 100 Nasal Cannula 2.0 28 03/13/18 19:00 78 36 145/47 (79) 100 03/13/18 18:00 85 27 131/64 (86) 100 03/13/18 17:24 83 161/59 03/13/18 17:19 83 21 100 Nasal Cannula 3.0 32 03/13/18 17:10 81 22 100 Nasal Cannula 3.0 32 03/13/18 17:10 32 03/13/18 17:00 80 20 161/59 (93) 100 03/13/18 16:40 Nasal Cannula 3.0 32 03/13/18 16:00 80 03/13/18 16:00 30 03/13/18 16:00 Mechanical Ventilator 03/13/18 16:00 97.6 89 20 160/62 (94) 100 03/13/18 15:00 102 21 179/73 (108) 100 03/13/18 14:50 87 18 30 03/13/18 14:00 89 18 153/53 (86) 100 03/13/18 13:00 99 03/13/18 13:00 75 20 30 03/13/18 13:00 85 21 Mechanical Ventilator 15.0 30 03/13/18 13:00 84 18 153/52 (85) 100 03/13/18 12:41 135/48 03/13/18 12:00 92 03/13/18 12:00 98.8 94 20 135/48 (77) 100 03/13/18 12:00 30 03/13/18 12:00 Mechanical Ventilator 03/13/18 11:00 76 20 142/48 (79) 100 10/30/18 10:30 75 20 30 03/13/18 10:00 84 22 161/54 (89) 100 03/13/18 10:00 85 23 161/54 (89) 100 03/13/18 09:00 86 29 163/59 (93) 100 03/13/18 09:00 30 03/13/18 08:57 98.9 03/13/18 08:55 86 24 30 03/13/18 08:27 81 148/72 03/13/18 08:00 Mechanical Ventilator 03/13/18 08:00 30 03/13/18 08:00 99.5 88 20 148/72 (97) 100 03/13/18 08:00 85 03/13/18 07:00 97 21 160/103 (122) 100 03/13/18 06:56 93 19 30 Intake and Output 03/13/18 03/14/18 19:00 07:00 Intake Total 1418.888 ml 1690 ml Output Total 600 ml 1025 ml Balance 818.888 ml 665 ml Intake Free Water 60 ml IV Total 1058.888 ml 1300 ml Tube Feeding 360 ml 270 ml Other 60 ml Output Urine Total 600 ml 1025 ml # Bowel Movements 3 3 Laboratory Tests 03/13/18 15:45: Arterial Blood pH 7.416, Arterial Blood Partial Pressure CO2 24.8*L, Arterial Blood Partial Pressure O2 133.5H, Arterial Blood HCO3 15.6*L, Arterial Blood Oxygen Saturation 98.2, Arterial Blood Base Excess -7.8L, Michael Test Positive 03/14/18 04:00: White Blood Count 11.0H, Red Blood Count 2.77L, Hemoglobin 7.6L, Hematocrit 23.2L, Mean Corpuscular Volume 84, Mean Corpuscular Hemoglobin 27.5, Mean Corpuscular Hemoglobin Concent 32.7, Red Cell Distribution Width 13.5, Platelet Count 151, Mean Platelet Volume 9.4, Neutrophils (%) (Auto) , Lymphocytes (%) ( Auto) , Monocytes (%) (Auto) , Eosinophils (%) (Auto) , Basophils (%) (Auto) , Neutrophils % (Manual) [Pending], Lymphocytes % (Manual) [Pending], Platelet Estimate [Pending], Platelet Morphology [Pending], Sodium Level 147H, Potassium Level 3.8, Chloride Level 118H, Carbon Dioxide Level 18L, Anion Gap 11, Blood Urea Nitrogen 54H, Creatinine 2.2H, Estimat Glomerular Filtration Rate , Glucose Level 240H, Uric Acid 6.9, Calcium Level 8.0L, Phosphorus Level 3.4, Magnesium Level 1.8, Total Bilirubin 0.3, Aspartate Amino Transf (AST/SGOT) 30, Alanine Aminotransferase (ALT/SGPT) 37, Alkaline Phosphatase 107, Pro-B-Type Natriuretic Peptide 6657H, Total Protein 5.0L, Albumin 1.7L, Globulin 3.3, Albumin/Globulin Ratio 0.5L Height (Feet): 5 Height (Inches): 10.00 Weight (Pounds): 170 General Appearance: no apparent distress EENT: TMs normal Neck: supple Cardiovascular: regular rhythm Respiratory/Chest: lungs clear Abdomen: non tender Extremities: non-tender Edema: no edema noted Leg (L), no edema noted Leg (R) Edema: mild edema Neurologic: alert Skin: warm/dry Objective trach, Aleksandr Malloy MD Mar 14, 2018 06:37
[2018-03-14 08:07] LABS: INR 1.1 (0.9-1.1)
[2018-03-14] MEDS: Acetaminophen 650mg/20.3ml GT PRN (08:26)
[2018-03-14] MEDS: levETIRAcetam 500mg/5ml Liquid GT SCH ×2 (08:27→20:08)
[2018-03-14] MEDS: Aspirin Baby 81mg NG SCH (08:28)
[2018-03-14] MEDS: Pantoprazole Inj IVP SCH ×2 (08:28→20:08)
[2018-03-14] MEDS: Heparin 5000 units/ml inj SUBQ SCH ×2 (08:29→20:09)
[2018-03-14] MEDS: Meropenem 500 MG in NS 55 ML IVPB SCH ×2 (09:41→21:00)
[2018-03-14] MEDS: Micafungin 100 MG in NS 110 ML IVPB SCH (09:42)
--- NOTE | 2018-03-14 12:04 | Pulmonolgy Critical Care Note ---
Critical Care - Asmt/Plan Problems: (1) [facility] resident (2) Anemia (3) PEG (percutaneous endoscopic gastrostomy) status (4) Seizure disorder (5) CKD (chronic kidney disease) (6) MARK (acute kidney injury) (7) Severe sepsis (8) UTI (urinary tract infection) (9) Respiratory failure (10) NSTEMI (non-ST elevated myocardial infarction) Assessment/Plan: ASSESSMENT: * SIRS/SEPSIS * Shock, likely septic * VDRF, extubated 03/13 * MSOF * MARK on CKD * Abnormal LFT's - IMPROVED * NSTEMI, likely demand ischemia * Mild PVC on CXR & elevated BNP but clinically appears dry * ? ADHF * Sz DO * NHR * Bedbound @ baseline * Anemia * S/P GT PLAN: * Optimize pulmonary hygiene/mobilize as tolerated * Titrate down FiO2 to keep SaO2 > 92% * PRN HHN's * Off NE * Monitor volumes and renal function * GT BICITRA per renal * F/U renal recs, replete electrolytes and free water * F/U cards recs * Vanco, Elías, Linda per ID * GTF's * Continue HEP SQ, F/U HIT Ab panel * Continue AED's * FC * CCT 35 Critical Care - Objective Last 24 Hour Vital Signs Date Time Temp Pulse Resp B/P (MAP) Pulse Ox O2 Delivery O2 Flow Rate FiO2 03/14/18 11:00 83 25 151/58 (89) 100 03/14/18 10:00 89 22 159/48 (85) 100 03/14/18 09:00 82 20 165/52 (89) 100 03/14/18 08:28 99 152/55 03/14/18 08:00 74 03/14/18 08:00 Nasal Cannula 2.0 03/14/18 08:00 98.8 87 18 152/55 (87) 100 03/14/18 07:12 100 Nasal Cannula 2.0 28 03/14/18 07:12 82 21 Nasal Cannula 2.0 28 03/14/18 07:12 Nasal Cannula 2.0 28 03/14/18 07:00 85 22 172/68 (102) 100 03/14/18 06:00 93 24 174/69 (104) 100 03/14/18 05:00 89 18 153/65 (94) 100 03/14/18 04:00 Nasal Cannula 2.0 03/14/18 04:00 97.5 80 16 147/64 (91) 100 03/14/18 04:00 75 03/14/18 03:00 83 18 155/53 (87) 100 03/14/18 02:00 78 18 153/43 (79) 100 03/14/18 01:00 75 17 152/42 (78) 100 03/14/18 00:00 97.8 76 16 154/50 (84) 100 03/14/18 00:00 87 03/14/18 00:00 Mechanical Ventilator 03/13/18 23:00 78 17 136/44 (74) 100 03/13/18 22:00 80 22 144/45 (78) 100 03/13/18 21:00 78 24 147/48 (81) 100 03/13/18 20:00 Mechanical Ventilator 03/13/18 20:00 75 03/13/18 20:00 98.9 76 26 143/49 (80) 100 03/13/18 19:03 71 24 Nasal Cannula 2.0 28 03/13/18 19:02 Nasal Cannula 2.0 28 03/13/18 19:02 100 Nasal Cannula 2.0 28 03/13/18 19:00 78 36 145/47 (79) 100 03/13/18 18:00 85 27 131/64 (86) 100 03/13/18 17:24 83 161/59 03/13/18 17:19 83 21 100 Nasal Cannula 3.0 32 03/13/18 17:10 81 22 100 Nasal Cannula 3.0 32 03/13/18 17:10 32 03/13/18 17:00 80 20 161/59 (93) 100 03/13/18 16:40 Nasal Cannula 3.0 32 03/13/18 16:00 80 03/13/18 16:00 30 03/13/18 16:00 Mechanical Ventilator 03/13/18 16:00 97.6 89 20 160/62 (94) 100 03/13/18 15:00 102 21 179/73 (108) 100 03/13/18 14:50 87 18 30 03/13/18 14:00 89 18 153/53 (86) 100 03/13/18 13:00 99 03/13/18 13:00 75 20 30 03/13/18 13:00 85 21 Mechanical Ventilator 15.0 30 03/13/18 13:00 84 18 153/52 (85) 100 03/13/18 12:41 135/48 03/13/18 12:00 92 03/13/18 12:00 98.8 94 20 135/48 (77) 100 03/13/18 12:00 30 03/13/18 12:00 Mechanical Ventilator Status: obtunded Condition: improving HEENT: atraumatic, normocephalic Neck: full ROM Lungs: clear Heart: HR/BP stable Abdomen: soft, non-tender, active bowel sounds, feeding tube Extremities: no C/C/E Decubiti: location - sacral, stage - 4 Micro: Microbiology Date/Time Source Procedure Growth Status 03/12/18 22:45 Stool Clostridium difficile Toxin Assay - Final Complete 03/13/18 19:48 Femoral Central Catheter Tip Culture - Preliminary NO GROWTH Resulted Accucheck: 268 Blood Sugars: BS controlled Critical Care - Subjective ROS Limited/Unobtainable: Yes ICU Day: 7 Intubation Day: Extubated yesterday Interval Events: Stable on 2L No cough, no secretions Jessica TF's, no distress FI02: 28 Vent Support Breath Rate: 0 Vent Support Mode: CPAP Vent Tidal Volume: 550 Sputum Amount: None PEEP: 5.0 PIP: 14 Tube Feeding Amount: 30 I&O: Intake and Output 03/13/18 03/14/18 19:00 07:00 Intake Total 1418.888 ml 1720 ml Output Total 600 ml 1065 ml Balance 818.888 ml 655 ml Intake Free Water 60 ml IV Total 1058.888 ml 1300 ml Tube Feeding 360 ml 300 ml Other 60 ml Output Urine Total 600 ml 1065 ml # Bowel Movements 3 3 Subjective: KARRIE ET-Tube: 7.5 ET Position: 23 Javon Gan MD Mar 14, 2018 12:04
--- NOTE | 2018-03-14 12:27 | Nephrology Progress Note ---
Assessment/Plan Problem List: (1) MARK (acute kidney injury) (2) CKD (chronic kidney disease) (3) Sepsis (4) Respiratory failure (5) Shock (6) Anemia Assessment acute on chronic renal failure: Oliguric ATN resolving Hypotension? due to sepsis: Shock Acute respiratory failure PEG DM Shock liver Sever HypoAlbuminemia Plan now extubated 2D echo Ej Fx 55 % monitor Vanco levels Albumin bolus as needed up dose Norvasc stool C dif change IV fluids- Bicitra GT pulm toilet urine studies avoid Nephrotoxics Monitor renal parameters Transfuse I unit PADMA: Cholelithiasis. 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, consistent with angiomyolipoma no [place] Subjective ROS Limited/Unobtainable: No Constitutional: Reports: malaise Objective Objective Last 24 Hour Vital Signs Date Time Temp Pulse Resp B/P (MAP) Pulse Ox O2 Delivery O2 Flow Rate FiO2 03/14/18 11:00 83 25 151/58 (89) 100 03/14/18 10:00 89 22 159/48 (85) 100 03/14/18 09:00 82 20 165/52 (89) 100 03/14/18 08:28 99 152/55 03/14/18 08:00 74 03/14/18 08:00 Nasal Cannula 2.0 03/14/18 08:00 98.8 87 18 152/55 (87) 100 03/14/18 07:12 100 Nasal Cannula 2.0 28 03/14/18 07:12 82 21 Nasal Cannula 2.0 28 03/14/18 07:12 Nasal Cannula 2.0 28 03/14/18 07:00 85 22 172/68 (102) 100 03/14/18 06:00 93 24 174/69 (104) 100 03/14/18 05:00 89 18 153/65 (94) 100 03/14/18 04:00 Nasal Cannula 2.0 03/14/18 04:00 97.5 80 16 147/64 (91) 100 03/14/18 04:00 75 03/14/18 03:00 83 18 155/53 (87) 100 03/14/18 02:00 78 18 153/43 (79) 100 03/14/18 01:00 75 17 152/42 (78) 100 03/14/18 00:00 97.8 76 16 154/50 (84) 100 03/14/18 00:00 87 03/14/18 00:00 Mechanical Ventilator 03/13/18 23:00 78 17 136/44 (74) 100 03/13/18 22:00 80 22 144/45 (78) 100 03/13/18 21:00 78 24 147/48 (81) 100 03/13/18 20:00 Mechanical Ventilator 03/13/18 20:00 75 03/13/18 20:00 98.9 76 26 143/49 (80) 100 03/13/18 19:03 71 24 Nasal Cannula 2.0 28 03/13/18 19:02 Nasal Cannula 2.0 28 03/13/18 19:02 100 Nasal Cannula 2.0 28 03/13/18 19:00 78 36 145/47 (79) 100 03/13/18 18:00 85 27 131/64 (86) 100 03/13/18 17:24 83 161/59 03/13/18 17:19 83 21 100 Nasal Cannula 3.0 32 03/13/18 17:10 81 22 100 Nasal Cannula 3.0 32 03/13/18 17:10 32 03/13/18 17:00 80 20 161/59 (93) 100 03/13/18 16:40 Nasal Cannula 3.0 32 03/13/18 16:00 80 03/13/18 16:00 30 03/13/18 16:00 Mechanical Ventilator 03/13/18 16:00 97.6 89 20 160/62 (94) 100 03/13/18 15:00 102 21 179/73 (108) 100 03/13/18 14:50 87 18 30 03/13/18 14:00 89 18 153/53 (86) 100 03/13/18 13:00 99 03/13/18 13:00 75 20 30 03/13/18 13:00 85 21 Mechanical Ventilator 15.0 30 03/13/18 13:00 84 18 153/52 (85) 100 03/13/18 12:41 135/48 Intake and Output 03/13/18 03/14/18 19:00 07:00 Intake Total 1418.888 ml 1720 ml Output Total 600 ml 1065 ml Balance 818.888 ml 655 ml Intake Free Water 60 ml IV Total 1058.888 ml 1300 ml Tube Feeding 360 ml 300 ml Other 60 ml Output Urine Total 600 ml 1065 ml # Bowel Movements 3 3 Laboratory Tests 03/13/18 15:45: Arterial Blood pH 7.416, Arterial Blood Partial Pressure CO2 24.8*L, Arterial Blood Partial Pressure O2 133.5H, Arterial Blood HCO3 15.6*L, Arterial Blood Oxygen Saturation 98.2, Arterial Blood Base Excess -7.8L, Michael Test Positive 03/14/18 04:00: White Blood Count 11.0H, Red Blood Count 2.77L, Hemoglobin 7.6L, Hematocrit 23.2L, Mean Corpuscular Volume 84, Mean Corpuscular Hemoglobin 27.5, Mean Corpuscular Hemoglobin Concent 32.7, Red Cell Distribution Width 13.5, Platelet Count 151, Mean Platelet Volume 9.4, Neutrophils (%) (Auto) , Lymphocytes (%) ( Auto) , Monocytes (%) (Auto) , Eosinophils (%) (Auto) , Basophils (%) (Auto) , Differential Total Cells Counted 100, Neutrophils % (Manual) 72, Lymphocytes % ( Manual) 14L, Monocytes % (Manual) 11H, Eosinophils % (Manual) 3, Basophils % ( Manual) 0, Band Neutrophils 0, Platelet Estimate Adequate, Platelet Morphology Normal, Hypochromasia 3+, Anisocytosis 1+, Spherocytes 1+, Sodium Level 147H, Potassium Level 3.8, Chloride Level 118H, Carbon Dioxide Level 18L, Anion Gap 11 , Blood Urea Nitrogen 54H, Creatinine 2.2H, Estimat Glomerular Filtration Rate , Glucose Level 240H, Uric Acid 6.9, Calcium Level 8.0L, Phosphorus Level 3.4, Magnesium Level 1.8, Total Bilirubin 0.3, Aspartate Amino Transf (AST/SGOT) 30, Alanine Aminotransferase (ALT/SGPT) 37, Alkaline Phosphatase 107, Pro-B-Type Natriuretic Peptide 6657H, Total Protein 5.0L, Albumin 1.7L, Globulin 3.3, Albumin/Globulin Ratio 0.5L 03/14/18 07:10: Prothrombin Time 11.4, Prothromb Time International Ratio 1.1 Height (Feet): 5 Height (Inches): 10.00 Weight (Pounds): 170 General Appearance: no apparent distress EENT: other - extubated Cardiovascular: normal rate Respiratory/Chest: decreased breath sounds Abdomen: soft Objective no change Fouladian,Phil MD Mar 14, 2018 12:27
--- NOTE | 2018-03-14 12:53 | General Surgery Progress Note ---
General Surgery-Progress Note Subjective Additional Comments extubated and doing well. comfortable. Objective Last 24 Hour Vital Signs Date Time Temp Pulse Resp B/P (MAP) Pulse Ox O2 Delivery O2 Flow Rate FiO2 03/14/18 12:00 99.0 87 18 142/54 (83) 100 03/14/18 12:00 Nasal Cannula 2.0 03/14/18 12:00 82 03/14/18 11:00 83 25 151/58 (89) 100 03/14/18 10:00 89 22 159/48 (85) 100 03/14/18 09:00 82 20 165/52 (89) 100 03/14/18 08:28 99 152/55 03/14/18 08:00 74 03/14/18 08:00 Nasal Cannula 2.0 03/14/18 08:00 98.8 87 18 152/55 (87) 100 03/14/18 07:12 100 Nasal Cannula 2.0 28 03/14/18 07:12 82 21 Nasal Cannula 2.0 28 03/14/18 07:12 Nasal Cannula 2.0 28 03/14/18 07:00 85 22 172/68 (102) 100 03/14/18 06:00 93 24 174/69 (104) 100 03/14/18 05:00 89 18 153/65 (94) 100 03/14/18 04:00 Nasal Cannula 2.0 03/14/18 04:00 97.5 80 16 147/64 (91) 100 03/14/18 04:00 75 03/14/18 03:00 83 18 155/53 (87) 100 03/14/18 02:00 78 18 153/43 (79) 100 03/14/18 01:00 75 17 152/42 (78) 100 03/14/18 00:00 97.8 76 16 154/50 (84) 100 03/14/18 00:00 87 03/14/18 00:00 Mechanical Ventilator 03/13/18 23:00 78 17 136/44 (74) 100 03/13/18 22:00 80 22 144/45 (78) 100 03/13/18 21:00 78 24 147/48 (81) 100 03/13/18 20:00 Mechanical Ventilator 03/13/18 20:00 75 03/13/18 20:00 98.9 76 26 143/49 (80) 100 03/13/18 19:03 71 24 Nasal Cannula 2.0 28 03/13/18 19:02 Nasal Cannula 2.0 28 03/13/18 19:02 100 Nasal Cannula 2.0 28 03/13/18 19:00 78 36 145/47 (79) 100 03/13/18 18:00 85 27 131/64 (86) 100 03/13/18 17:24 83 161/59 03/13/18 17:19 83 21 100 Nasal Cannula 3.0 32 03/13/18 17:10 81 22 100 Nasal Cannula 3.0 32 03/13/18 17:10 32 03/13/18 17:00 80 20 161/59 (93) 100 03/13/18 16:40 Nasal Cannula 3.0 32 03/13/18 16:00 80 03/13/18 16:00 30 03/13/18 16:00 Mechanical Ventilator 03/13/18 16:00 97.6 89 20 160/62 (94) 100 03/13/18 15:00 102 21 179/73 (108) 100 03/13/18 14:50 87 18 30 03/13/18 14:00 89 18 153/53 (86) 100 03/13/18 13:00 99 03/13/18 13:00 75 20 30 03/13/18 13:00 85 21 Mechanical Ventilator 15.0 30 03/13/18 13:00 84 18 153/52 (85) 100 I&O Intake and Output 03/13/18 03/14/18 19:00 07:00 Intake Total 1418.888 ml 1720 ml Output Total 600 ml 1065 ml Balance 818.888 ml 655 ml Intake Free Water 60 ml IV Total 1058.888 ml 1300 ml Tube Feeding 360 ml 300 ml Other 60 ml Output Urine Total 600 ml 1065 ml # Bowel Movements 3 3 Dressing: other Wound: other Drains: other Cardiovascular: RSR Respiratory: clear Abdomen: soft, flat, non-tender, present bowel sounds Extremities: other Laboratory Tests Test 03/13/18 15:45 03/14/18 04:00 03/14/18 07:10 Arterial Blood pH 7.416 (7.350-7.450) Arterial Blood Partial Pressure CO2 24.8 mmHg (35.0-45.0) *L Arterial Blood Partial Pressure O2 133.5 mmHg (75.0-100.0) H Arterial Blood HCO3 15.6 mmol/L (22.0-26.0) *L Arterial Blood Oxygen Saturation 98.2 % (95-100) Arterial Blood Base Excess -7.8 (-2-2) L Michael Test Positive White Blood Count 11.0 K/UL (4.8-10.8) H Red Blood Count 2.77 M/UL (4.20-5.40) L Hemoglobin 7.6 G/DL (12.0-16.0) L Hematocrit 23.2 % (37.0-47.0) L Mean Corpuscular Volume 84 FL (80-99) Mean Corpuscular Hemoglobin 27.5 PG (27.0-31.0) Mean Corpuscular Hemoglobin Concent 32.7 G/DL (32.0-36.0) Red Cell Distribution Width 13.5 % (11.6-14.8) Platelet Count 151 K/UL (150-450) Mean Platelet Volume 9.4 FL (6.5-10.1) Neutrophils (%) (Auto) % (45.0-75.0) Lymphocytes (%) (Auto) % (20.0-45.0) Monocytes (%) (Auto) % (1.0-10.0) Eosinophils (%) (Auto) % (0.0-3.0) Basophils (%) (Auto) % (0.0-2.0) Differential Total Cells Counted 100 Neutrophils % (Manual) 72 % (45-75) Lymphocytes % (Manual) 14 % (20-45) L Monocytes % (Manual) 11 % (1-10) H Eosinophils % (Manual) 3 % (0-3) Basophils % (Manual) 0 % (0-2) Band Neutrophils 0 % (0-8) Platelet Estimate Adequate Platelet Morphology Normal Hypochromasia 3+ Anisocytosis 1+ Spherocytes 1+ Sodium Level 147 MMOL/L (136-145) H Potassium Level 3.8 MMOL/L (3.5-5.1) Chloride Level 118 MMOL/L (98-107) H Carbon Dioxide Level 18 MMOL/L (21-32) L Anion Gap 11 mmol/L (5-15) Blood Urea Nitrogen 54 mg/dL (7-18) H Creatinine 2.2 MG/DL (0.55-1.30) H Estimat Glomerular Filtration Rate mL/min (>60) Glucose Level 240 MG/DL (74-106) H Uric Acid 6.9 MG/DL (2.6-7.2) Calcium Level 8.0 MG/DL (8.5-10.1) L Phosphorus Level 3.4 MG/DL (2.5-4.9) Magnesium Level 1.8 MG/DL (1.8-2.4) Total Bilirubin 0.3 MG/DL (0.2-1.0) Aspartate Amino Transf (AST/SGOT) 30 U/L (15-37) Alanine Aminotransferase (ALT/SGPT) 37 U/L (12-78) Alkaline Phosphatase 107 U/L (46-116) C-Reactive Protein, Quantitative 6.5 mg/dL (0.00-0.90) H Pro-B-Type Natriuretic Peptide 6657 pg/mL (0-125) H Total Protein 5.0 G/DL (6.4-8.2) L Albumin 1.7 G/DL (3.4-5.0) L Globulin 3.3 g/dL Albumin/Globulin Ratio 0.5 (1.0-2.7) L Prothrombin Time 11.4 SEC (9.30-11.50) Prothromb Time International Ratio 1.1 (0.9-1.1) Plan Problems: (1) Abnormal LFTs Assessment & Plan: likely shock liver from overt sepsis. labs improving abdominal ultrasound reviewed recovering / resolved (2) Decubitus ulcer of sacral region, unstageable Assessment & Plan: full thickness pressure injury (L)4cm x(W)3.4cm with approx 80% yellow slough ,otherwise pink ,(+) maceration.Hyperpigmentation periwound bordered by darker skin tone. DTPI noted to L heel oozing small amt serosanguineous exudate (L)6cm x (W)9cm.Wound bed fluctuant.DTPI noted to medial R heel (L)2cm x (W)2.5cm dry area noted along border but wound is fluctuant centrally. present upon admission. will be cared for during hospital stay will plan for debridement once stable unlikely etiology of leukocytosis wound improving since admission Tx.Plan: Cleanse sacral wound with Saline.Apply Therahoney gel .Apply Cavilon to borders .Cover with Optifoam drsg Daily and prn. Apply Cavilon wipe to R and L heels. Cover with Biatain drsg.Change prn. Reposition at least every 2hours or as tolerated. Off-load heels with pillow. (3) Severe sepsis Jean Marie Park Mar 14, 2018 12:53
[2018-03-14] MEDS: Nitroglycerin Patch 0.4mg TDERMAL SCH (13:33)
--- NOTE | 2018-03-14 13:47 | Infectious Diseases Prog Note ---
Assessment/Plan Assessment/Plan A; Septic shock, off pressor Candidal sepsis UTI with MRSA & Citrobacter Acute respiratory failure Acute renal failure Chronic kidney disease Elevated transaminase Dementia P; Continue Meropenem, Micafungin & Vancomycin with F/U cultures repeat blood culture Subjective ROS Limited/Unobtainable: Yes Respiratory: Reports: other - extubated yesterday Cardiovascular: Reports: other - had PICC line yesterday Allergies: Coded Allergies: PENICILLINS (Unverified Allergy, Mild, 12/04/12) Objective Vital Signs Last 24 Hour Vital Signs Date Time Temp Pulse Resp B/P (MAP) Pulse Ox O2 Delivery O2 Flow Rate FiO2 03/14/18 13:33 148/47 03/14/18 13:00 79 21 148/47 (80) 100 03/14/18 12:00 99.0 87 18 142/54 (83) 100 03/14/18 12:00 Nasal Cannula 2.0 03/14/18 12:00 82 03/14/18 11:00 83 25 151/58 (89) 100 03/14/18 10:00 89 22 159/48 (85) 100 03/14/18 09:00 82 20 165/52 (89) 100 03/14/18 08:28 99 152/55 03/14/18 08:00 74 03/14/18 08:00 Nasal Cannula 2.0 03/14/18 08:00 98.8 87 18 152/55 (87) 100 03/14/18 07:12 100 Nasal Cannula 2.0 28 03/14/18 07:12 82 21 Nasal Cannula 2.0 28 03/14/18 07:12 Nasal Cannula 2.0 28 03/14/18 07:00 85 22 172/68 (102) 100 03/14/18 06:00 93 24 174/69 (104) 100 03/14/18 05:00 89 18 153/65 (94) 100 03/14/18 04:00 Nasal Cannula 2.0 03/14/18 04:00 97.5 80 16 147/64 (91) 100 03/14/18 04:00 75 03/14/18 03:00 83 18 155/53 (87) 100 03/14/18 02:00 78 18 153/43 (79) 100 03/14/18 01:00 75 17 152/42 (78) 100 03/14/18 00:00 97.8 76 16 154/50 (84) 100 03/14/18 00:00 87 03/14/18 00:00 Mechanical Ventilator 03/13/18 23:00 78 17 136/44 (74) 100 03/13/18 22:00 80 22 144/45 (78) 100 03/13/18 21:00 78 24 147/48 (81) 100 03/13/18 20:00 Mechanical Ventilator 03/13/18 20:00 75 03/13/18 20:00 98.9 76 26 143/49 (80) 100 03/13/18 19:03 71 24 Nasal Cannula 2.0 28 03/13/18 19:02 Nasal Cannula 2.0 28 03/13/18 19:02 100 Nasal Cannula 2.0 28 03/13/18 19:00 78 36 145/47 (79) 100 03/13/18 18:00 85 27 131/64 (86) 100 03/13/18 17:24 83 161/59 03/13/18 17:19 83 21 100 Nasal Cannula 3.0 32 03/13/18 17:10 81 22 100 Nasal Cannula 3.0 32 03/13/18 17:10 32 03/13/18 17:00 80 20 161/59 (93) 100 03/13/18 16:40 Nasal Cannula 3.0 32 03/13/18 16:00 80 03/13/18 16:00 30 03/13/18 16:00 Mechanical Ventilator 03/13/18 16:00 97.6 89 20 160/62 (94) 100 03/13/18 15:00 102 21 179/73 (108) 100 03/13/18 14:50 87 18 30 03/13/18 14:00 89 18 153/53 (86) 100 Height (Feet): 5 Height (Inches): 10.00 Weight (Pounds): 170 General Appearance: no acute distress HEENT: mucous membranes moist Respiratory/Chest: lungs clear Cardiovascular: normal rate, other - left arm PICC line Abdomen: soft, non tender, other - GT feeding Extremities: no edema Neurologic/Psychiatric: aphasia Microbiology Date/Time Source Procedure Growth Status 03/12/18 22:45 Stool Clostridium difficile Toxin Assay - Final Complete 03/13/18 19:48 Femoral Central Catheter Tip Culture - Preliminary NO GROWTH Resulted Laboratory Tests Test 03/13/18 15:45 03/14/18 04:00 03/14/18 07:10 Arterial Blood pH 7.416 (7.350-7.450) Arterial Blood Partial Pressure CO2 24.8 mmHg (35.0-45.0) *L Arterial Blood Partial Pressure O2 133.5 mmHg (75.0-100.0) H Arterial Blood HCO3 15.6 mmol/L (22.0-26.0) *L Arterial Blood Oxygen Saturation 98.2 % (95-100) Arterial Blood Base Excess -7.8 (-2-2) L Michael Test Positive White Blood Count 11.0 K/UL (4.8-10.8) H Red Blood Count 2.77 M/UL (4.20-5.40) L Hemoglobin 7.6 G/DL (12.0-16.0) L Hematocrit 23.2 % (37.0-47.0) L Mean Corpuscular Volume 84 FL (80-99) Mean Corpuscular Hemoglobin 27.5 PG (27.0-31.0) Mean Corpuscular Hemoglobin Concent 32.7 G/DL (32.0-36.0) Red Cell Distribution Width 13.5 % (11.6-14.8) Platelet Count 151 K/UL (150-450) Mean Platelet Volume 9.4 FL (6.5-10.1) Neutrophils (%) (Auto) % (45.0-75.0) Lymphocytes (%) (Auto) % (20.0-45.0) Monocytes (%) (Auto) % (1.0-10.0) Eosinophils (%) (Auto) % (0.0-3.0) Basophils (%) (Auto) % (0.0-2.0) Differential Total Cells Counted 100 Neutrophils % (Manual) 72 % (45-75) Lymphocytes % (Manual) 14 % (20-45) L Monocytes % (Manual) 11 % (1-10) H Eosinophils % (Manual) 3 % (0-3) Basophils % (Manual) 0 % (0-2) Band Neutrophils 0 % (0-8) Platelet Estimate Adequate Platelet Morphology Normal Hypochromasia 3+ Anisocytosis 1+ Spherocytes 1+ Sodium Level 147 MMOL/L (136-145) H Potassium Level 3.8 MMOL/L (3.5-5.1) Chloride Level 118 MMOL/L (98-107) H Carbon Dioxide Level 18 MMOL/L (21-32) L Anion Gap 11 mmol/L (5-15) Blood Urea Nitrogen 54 mg/dL (7-18) H Creatinine 2.2 MG/DL (0.55-1.30) H Estimat Glomerular Filtration Rate mL/min (>60) Glucose Level 240 MG/DL (74-106) H Uric Acid 6.9 MG/DL (2.6-7.2) Calcium Level 8.0 MG/DL (8.5-10.1) L Phosphorus Level 3.4 MG/DL (2.5-4.9) Magnesium Level 1.8 MG/DL (1.8-2.4) Total Bilirubin 0.3 MG/DL (0.2-1.0) Aspartate Amino Transf (AST/SGOT) 30 U/L (15-37) Alanine Aminotransferase (ALT/SGPT) 37 U/L (12-78) Alkaline Phosphatase 107 U/L (46-116) C-Reactive Protein, Quantitative 6.5 mg/dL (0.00-0.90) H Pro-B-Type Natriuretic Peptide 6657 pg/mL (0-125) H Total Protein 5.0 G/DL (6.4-8.2) L Albumin 1.7 G/DL (3.4-5.0) L Globulin 3.3 g/dL Albumin/Globulin Ratio 0.5 (1.0-2.7) L Prothrombin Time 11.4 SEC (9.30-11.50) Prothromb Time International Ratio 1.1 (0.9-1.1) Current Medications Medications (Trade) Dose Ordered Sig/Gelacio Route PRN Reason Start Time Stop Time Status Last Admin Dose Admin Acetaminophen (Tylenol) 650 mg Q6H PRN GT FEVER 03/08/18 15:15 04/07/18 15:14 03/14/18 08:26 Albuterol/ Ipratropium (Albuterol/ Ipratropium) 3 ml Q4H PRN HHN Shortness of Breath 03/13/18 16:30 03/18/18 16:29 03/13/18 17:18 Amlodipine Besylate (Norvasc) 5 mg BID GT 03/13/18 18:00 04/12/18 08:59 03/14/18 08:28 Aspirin (ASA) 81 mg DAILY NG 03/09/18 09:00 04/08/18 08:59 03/14/18 08:28 Chlorhexidine Gluconate (Xiomara-Hex 2%) 1 applic DAILY@2000 TOPIC 03/08/18 22:30 04/08/18 22:29 03/13/18 20:07 Dextrose (Dextrose 50%) 25 ml Q30M PRN IV Hypoglycemia 03/08/18 15:15 04/07/18 15:14 Dextrose (Dextrose 50%) 50 ml Q30M PRN IV Hypoglycemia 03/08/18 15:15 04/07/18 15:14 Dextrose/ Electrolytes 1,000 ml @ 100 mls/hr Q10H IV 03/13/18 11:00 04/12/18 10:59 03/14/18 06:19 Heparin Sodium (Porcine) (Heparin 5000 units/ml) 5,000 units EVERY 12 HOURS SUBQ 03/08/18 21:00 04/07/18 20:59 03/14/18 08:29 Insulin Aspart (NovoLOG) Q6HR SUBQ 03/12/18 12:00 04/11/18 11:59 03/14/18 12:28 Levetiracetam (Keppra) 750 mg Q12HR GT 03/08/18 21:00 04/07/18 20:59 03/14/18 08:27 Meropenem 500 mg/ Sodium Chloride 55 ml @ 110 mls/hr Q12H IVPB 03/10/18 10:00 03/15/18 09:59 03/14/18 09:41 Micafungin Sodium 100 mg/Sodium Chloride 110 ml @ 110 mls/hr Q24H IVPB 03/11/18 10:00 03/18/18 09:59 03/14/18 09:42 Nitroglycerin (Ntg) 1 patch Q24H TDERMAL 03/11/18 13:00 04/10/18 12:59 03/14/18 13:33 Norepinephrine Bitartrate 4 mg/ Dextrose 250 ml @ 0 mls/hr Q24H IV 03/08/18 20:34 04/07/18 20:33 03/09/18 12:53 Ondansetron HCl (Zofran) 4 mg Q6H PRN IVP Nausea & Vomiting 03/08/18 15:15 04/07/18 15:14 Pantoprazole (Protonix) 40 mg EVERY 12 HOURS IVP 03/08/18 21:00 04/07/18 20:59 03/14/18 08:28 Quetiapine Fumarate (SEROquel) 12.5 mg Q4H PRN ORAL agitation 03/09/18 19:45 04/08/18 19:44 03/14/18 12:30 Sodium Citrate (Bicitra) 30 ml EVERY 6 HOURS NG 03/11/18 12:45 04/10/18 12:44 03/14/18 05:25 Vancomycin HCl (Vanco rx to dose) 1 ea DAILY PRN MISC Per rx protocol 03/11/18 14:00 04/10/18 13:59 Wilder French MD Mar 14, 2018 13:47
[2018-03-14] MEDS: Dyna-Hex 2% Top Sol 2oz TOPIC SCH (20:07)
--- NOTE | 2018-03-14 21:55 | General Progress Note ---
Assessment/Plan Problem List: (1) CKD (chronic kidney disease) ICD Codes: N18.9 - Chronic kidney disease, unspecified SNOMED: 802844936 (2) MARK (acute kidney injury) ICD Codes: N17.9 - Acute kidney failure, unspecified SNOMED: 65557932 (3) Sepsis ICD Codes: A41.9 - Sepsis, unspecified organism SNOMED: 33575217 (4) Abnormal LFTs ICD Codes: R94.5 - Abnormal results of liver function studies SNOMED: 687267957 (5) Decubitus ulcer of sacral region, unstageable ICD Codes: L89.150 - Pressure ulcer of sacral region, unstageable SNOMED: 922436795, 158934517 (6) Hyperglycemia ICD Codes: R73.9 - Hyperglycemia, unspecified; N18.9 - Chronic kidney disease, unspecified SNOMED: 45527452 (7) Metabolic acidosis ICD Codes: E87.2 - Acidosis; N18.9 - Chronic kidney disease, unspecified SNOMED: 76177615 (8) Renal failure (ARF), acute on chronic ICD Codes: N17.9 - Acute kidney failure, unspecified; N18.9 - Chronic kidney disease, unspecified SNOMED: 423083497 Qualifiers: Qualified Codes: N17.9 - Acute kidney failure, unspecified; N18.4 - Chronic kidney disease, stage 4 (severe) (9) Anemia ICD Codes: D64.9 - Anemia, unspecified SNOMED: 791378146 Qualifiers: Qualified Codes: D64.9 - Anemia, unspecified (10) Respiratory failure ICD Codes: J96.90 - Respiratory failure, unspecified, unspecified whether with hypoxia or hypercapnia SNOMED: 287928181 Qualifiers: Qualified Codes: J96.00 - Acute respiratory failure, unspecified whether with hypoxia or hypercapnia (11) UTI (urinary tract infection) ICD Codes: N39.0 - Urinary tract infection, site not specified SNOMED: 93412329 Qualifiers: Qualified Codes: T83.511A - Infection and inflammatory reaction due to indwelling urethral catheter, initial encounter; N39.0 - Urinary tract infection , site not specified (12) NSTEMI (non-ST elevated myocardial infarction) ICD Codes: I21.4 - Non-ST elevation (NSTEMI) myocardial infarction SNOMED: 872893116 (13) Severe sepsis ICD Codes: A41.9 - Sepsis, unspecified organism; R65.20 - Severe sepsis without septic shock SNOMED: 80134778 (14) Encephalopathy due to metabolic factor or toxin SNOMED: 812308254 Status: progressing Assessment/Plan resp failure sepsis .abx per id pna azotemia hypokalemia lethargic reviewed chart and labs ARF Subjective ROS Limited/Unobtainable: Yes Allergies: Coded Allergies: PENICILLINS (Unverified Allergy, Mild, 12/04/12) Objective Last 24 Hour Vital Signs Date Time Temp Pulse Resp B/P (MAP) Pulse Ox O2 Delivery O2 Flow Rate FiO2 03/14/18 21:00 89 13 150/58 (88) 100 03/14/18 20:00 90 03/14/18 20:00 Nasal Cannula 2.0 03/14/18 20:00 98.5 91 14 151/56 (87) 100 03/14/18 19:55 150/55 03/14/18 19:49 100 Nasal Cannula 2.0 28 03/14/18 19:49 91 20 Nasal Cannula 2.0 28 03/14/18 19:49 Nasal Cannula 2.0 28 03/14/18 19:00 90 24 150/55 (86) 100 03/14/18 18:00 87 20 154/59 (90) 100 03/14/18 17:18 85 142/55 03/14/18 17:00 85 19 142/55 (84) 100 03/14/18 16:00 99.0 84 22 149/63 (91) 100 03/14/18 16:00 87 03/14/18 16:00 Nasal Cannula 2.0 03/14/18 15:00 76 35 135/42 (73) 100 03/14/18 14:00 79 35 139/43 (75) 100 03/14/18 13:33 148/47 03/14/18 13:00 79 21 148/47 (80) 100 03/14/18 12:00 99.0 87 18 142/54 (83) 100 03/14/18 12:00 Nasal Cannula 2.0 03/14/18 12:00 82 03/14/18 11:00 83 25 151/58 (89) 100 03/14/18 10:00 89 22 159/48 (85) 100 03/14/18 09:00 82 20 165/52 (89) 100 03/14/18 08:28 99 152/55 03/14/18 08:00 74 03/14/18 08:00 Nasal Cannula 2.0 03/14/18 08:00 98.8 87 18 152/55 (87) 100 03/14/18 07:12 100 Nasal Cannula 2.0 28 03/14/18 07:12 82 21 Nasal Cannula 2.0 28 03/14/18 07:12 Nasal Cannula 2.0 28 03/14/18 07:00 85 22 172/68 (102) 100 03/14/18 06:00 93 24 174/69 (104) 100 03/14/18 05:00 89 18 153/65 (94) 100 03/14/18 04:00 Nasal Cannula 2.0 03/14/18 04:00 97.5 80 16 147/64 (91) 100 03/14/18 04:00 75 03/14/18 03:00 83 18 155/53 (87) 100 03/14/18 02:00 78 18 153/43 (79) 100 03/14/18 01:00 75 17 152/42 (78) 100 03/14/18 00:00 97.8 76 16 154/50 (84) 100 03/14/18 00:00 87 03/14/18 00:00 Mechanical Ventilator 03/13/18 23:00 78 17 136/44 (74) 100 03/13/18 22:00 80 22 144/45 (78) 100 Intake and Output 03/13/18 03/14/18 19:00 07:00 Intake Total 1418.888 ml 1720 ml Output Total 600 ml 1065 ml Balance 818.888 ml 655 ml Intake Free Water 60 ml IV Total 1058.888 ml 1300 ml Tube Feeding 360 ml 300 ml Other 60 ml Output Urine Total 600 ml 1065 ml # Bowel Movements 3 3 Laboratory Tests 03/14/18 04:00: White Blood Count 11.0H, Red Blood Count 2.77L, Hemoglobin 7.6L, Hematocrit 23.2L, Mean Corpuscular Volume 84, Mean Corpuscular Hemoglobin 27.5, Mean Corpuscular Hemoglobin Concent 32.7, Red Cell Distribution Width 13.5, Platelet Count 151, Mean Platelet Volume 9.4, Neutrophils (%) (Auto) , Lymphocytes (%) ( Auto) , Monocytes (%) (Auto) , Eosinophils (%) (Auto) , Basophils (%) (Auto) , Differential Total Cells Counted 100, Neutrophils % (Manual) 72, Lymphocytes % ( Manual) 14L, Monocytes % (Manual) 11H, Eosinophils % (Manual) 3, Basophils % ( Manual) 0, Band Neutrophils 0, Platelet Estimate Adequate, Platelet Morphology Normal, Hypochromasia 3+, Anisocytosis 1+, Spherocytes 1+, Sodium Level 147H, Potassium Level 3.8, Chloride Level 118H, Carbon Dioxide Level 18L, Anion Gap 11 , Blood Urea Nitrogen 54H, Creatinine 2.2H, Estimat Glomerular Filtration Rate , Glucose Level 240H, Uric Acid 6.9, Calcium Level 8.0L, Phosphorus Level 3.4, Magnesium Level 1.8, Total Bilirubin 0.3, Aspartate Amino Transf (AST/SGOT) 30, Alanine Aminotransferase (ALT/SGPT) 37, Alkaline Phosphatase 107, C-Reactive Protein, Quantitative 6.5H, Pro-B-Type Natriuretic Peptide 6657H, Total Protein 5.0L, Albumin 1.7L, Globulin 3.3, Albumin/Globulin Ratio 0.5L 03/14/18 07:10: Prothrombin Time 11.4, Prothromb Time International Ratio 1.1 Height (Feet): 5 Height (Inches): 10.00 Weight (Pounds): 170 General Appearance: confused Neck: supple Cardiovascular: normal rate Respiratory/Chest: lungs clear Abdomen: soft Krzysztof Schneider MD Mar 14, 2018 21:55
--- NOTE | 2018-03-14 23:12 | General Progress Note ---
Assessment/Plan Problem List: (1) Seizure disorder ICD Codes: G40.909 - Epilepsy, unspecified, not intractable, without status epilepticus SNOMED: 405211718 (2) Encephalopathy due to metabolic factor or toxin SNOMED: 530492111 Status: unchanged Assessment/Plan (1) Seizure disorder ICD Codes: G40.909 - Epilepsy, unspecified, not intractable, without status epilepticus SNOMED: 448802760 (2) Encephalopathy due to metabolic factor or toxin SNOMED: 565173887 Status: unchanged Assessment/Plan seroquel prn Subjective Neurologic/Psychiatric: Reports: anxiety Allergies: Coded Allergies: PENICILLINS (Unverified Allergy, Mild, 12/04/12) Objective Last 24 Hour Vital Signs Date Time Temp Pulse Resp B/P (MAP) Pulse Ox O2 Delivery O2 Flow Rate FiO2 03/14/18 22:00 91 14 157/70 (99) 100 03/14/18 21:00 89 13 150/58 (88) 100 03/14/18 20:00 90 03/14/18 20:00 Nasal Cannula 2.0 03/14/18 20:00 98.5 91 14 151/56 (87) 100 03/14/18 19:55 150/55 03/14/18 19:49 100 Nasal Cannula 2.0 28 03/14/18 19:49 91 20 Nasal Cannula 2.0 28 03/14/18 19:49 Nasal Cannula 2.0 28 03/14/18 19:00 90 24 150/55 (86) 100 03/14/18 18:00 87 20 154/59 (90) 100 03/14/18 17:18 85 142/55 03/14/18 17:00 85 19 142/55 (84) 100 03/14/18 16:00 99.0 84 22 149/63 (91) 100 03/14/18 16:00 87 03/14/18 16:00 Nasal Cannula 2.0 03/14/18 15:00 76 35 135/42 (73) 100 03/14/18 14:00 79 35 139/43 (75) 100 03/14/18 13:33 148/47 03/14/18 13:00 79 21 148/47 (80) 100 03/14/18 12:00 99.0 87 18 142/54 (83) 100 03/14/18 12:00 Nasal Cannula 2.0 03/14/18 12:00 82 03/14/18 11:00 83 25 151/58 (89) 100 03/14/18 10:00 89 22 159/48 (85) 100 03/14/18 09:00 82 20 165/52 (89) 100 03/14/18 08:28 99 152/55 03/14/18 08:00 74 03/14/18 08:00 Nasal Cannula 2.0 03/14/18 08:00 98.8 87 18 152/55 (87) 100 03/14/18 07:12 100 Nasal Cannula 2.0 28 03/14/18 07:12 82 21 Nasal Cannula 2.0 28 03/14/18 07:12 Nasal Cannula 2.0 28 03/14/18 07:00 85 22 172/68 (102) 100 03/14/18 06:00 93 24 174/69 (104) 100 03/14/18 05:00 89 18 153/65 (94) 100 03/14/18 04:00 Nasal Cannula 2.0 03/14/18 04:00 97.5 80 16 147/64 (91) 100 03/14/18 04:00 75 03/14/18 03:00 83 18 155/53 (87) 100 03/14/18 02:00 78 18 153/43 (79) 100 03/14/18 01:00 75 17 152/42 (78) 100 03/14/18 00:00 97.8 76 16 154/50 (84) 100 03/14/18 00:00 87 03/14/18 00:00 Mechanical Ventilator Intake and Output 03/13/18 03/14/18 18:59 06:59 Intake Total 1418.888 ml 1720 ml Output Total 625 ml 1075 ml Balance 793.888 ml 645 ml Intake Free Water 60 ml IV Total 1058.888 ml 1300 ml Tube Feeding 360 ml 300 ml Other 60 ml Output Urine Total 625 ml 1075 ml # Bowel Movements 3 3 Laboratory Tests 03/14/18 04:00: White Blood Count 11.0H, Red Blood Count 2.77L, Hemoglobin 7.6L, Hematocrit 23.2L, Mean Corpuscular Volume 84, Mean Corpuscular Hemoglobin 27.5, Mean Corpuscular Hemoglobin Concent 32.7, Red Cell Distribution Width 13.5, Platelet Count 151, Mean Platelet Volume 9.4, Neutrophils (%) (Auto) , Lymphocytes (%) ( Auto) , Monocytes (%) (Auto) , Eosinophils (%) (Auto) , Basophils (%) (Auto) , Differential Total Cells Counted 100, Neutrophils % (Manual) 72, Lymphocytes % ( Manual) 14L, Monocytes % (Manual) 11H, Eosinophils % (Manual) 3, Basophils % ( Manual) 0, Band Neutrophils 0, Platelet Estimate Adequate, Platelet Morphology Normal, Hypochromasia 3+, Anisocytosis 1+, Spherocytes 1+, Sodium Level 147H, Potassium Level 3.8, Chloride Level 118H, Carbon Dioxide Level 18L, Anion Gap 11 , Blood Urea Nitrogen 54H, Creatinine 2.2H, Estimat Glomerular Filtration Rate , Glucose Level 240H, Uric Acid 6.9, Calcium Level 8.0L, Phosphorus Level 3.4, Magnesium Level 1.8, Total Bilirubin 0.3, Aspartate Amino Transf (AST/SGOT) 30, Alanine Aminotransferase (ALT/SGPT) 37, Alkaline Phosphatase 107, C-Reactive Protein, Quantitative 6.5H, Pro-B-Type Natriuretic Peptide 6657H, Total Protein 5.0L, Albumin 1.7L, Globulin 3.3, Albumin/Globulin Ratio 0.5L 03/14/18 07:10: Prothrombin Time 11.4, Prothromb Time International Ratio 1.1 Height (Feet): 5 Height (Inches): 10.00 Weight (Pounds): 170 General Appearance: no apparent distress, lethargic, confused, agitated China Kidd MD Mar 14, 2018 23:12
[2018-03-15] VITALS (19 sets, daily range): BP systolic 136–186; BP diastolic 45–82
[2018-03-15] MEDS: D5W w/KCl 20mEq 1,000 ML IV SCH ×2 (04:00→17:30)
[2018-03-15] MEDS: Sodium Citrate 30ml NG SCH ×4 (05:34→23:31)
[2018-03-15] MEDS: NovoLOG Insulin Flexpen SUBQ SCH ×4 (05:36→23:32)
[2018-03-15 05:50] LABS: BASOPHILS % (AUTO) 0.9 % (0.0-2.0); EOSINOPHILS % (AUTO) 2.9 % (0.0-3.0); HEMATOCRIT 24.3 % (37.0-47.0); LYMPHOCYTES % (AUTO) 16.9 % (20.0-45.0); MEAN CORPUSCULAR VOLUME 84 FL (80-99); MONOCYTES % (AUTO) 6.9 % (1.0-10.0); NEUTROPHILS % (AUTO) 72.4 % (45.0-75.0); PLATELET COUNT 185 K/UL (150-450); RED BLOOD COUNT 2.89 M/UL (4.20-5.40); RED CELL DISTRIBUTION WIDTH 13.5 % (11.6-14.8); WHITE BLOOD COUNT 14.6 K/UL (4.8-10.8)
[2018-03-15 06:17] LABS: ALANINE AMINOTRANSFERASE 40 U/L (12-78); ALBUMIN 1.8 G/DL (3.4-5.0); ALBUMIN/GLOBULIN RATIO 0.5 (1.0-2.7); ALKALINE PHOSPHATASE 131 U/L (46-116); ANION GAP 10 mmol/L (5-15); ASPARTATE AMINO TRANSFERASE 37 U/L (15-37); BILIRUBIN,TOTAL 0.3 MG/DL (0.2-1.0); BLOOD UREA NITROGEN 46 mg/dL (7-18); CALCIUM 8.2 MG/DL (8.5-10.1); CARBON DIOXIDE 20 MMOL/L (21-32); CHLORIDE 113 MMOL/L (98-107); CREATININE 1.9 MG/DL (0.55-1.30); SODIUM 143 MMOL/L (136-145)
[2018-03-15 06:39] LABS: PHOSPHORUS 3.1 MG/DL (2.5-4.9)
[2018-03-15] MEDS: Micafungin 100 MG in NS 110 ML IVPB SCH (10:23)
[2018-03-15] MEDS: Meropenem 500 MG in NS 55 ML IVPB SCH ×2 (10:23→21:04)
[2018-03-15] MEDS: levETIRAcetam 500mg/5ml Liquid GT SCH ×2 (10:24→21:04)
[2018-03-15] MEDS: Pantoprazole Inj IVP SCH ×2 (10:25→21:03)
[2018-03-15] MEDS: Heparin 5000 units/ml inj SUBQ SCH ×2 (10:30→21:07)
[2018-03-15] MEDS: Aspirin Baby 81mg NG SCH (10:30)
--- NOTE | 2018-03-15 10:54 | Nephrology Progress Note ---
Assessment/Plan Problem List: (1) MARK (acute kidney injury) (2) CKD (chronic kidney disease) (3) Sepsis (4) Respiratory failure (5) Shock (6) Anemia Assessment acute on chronic renal failure: Oliguric ATN resolving Hypotension? due to sepsis: Shock Acute respiratory failure PEG DM Shock liver Sever HypoAlbuminemia Plan now extubated 2D echo Ej Fx 55 % monitor Vanco levels Albumin bolus as needed up dose Norvasc stool C dif change IV fluids- Bicitra GT pulm toilet urine studies avoid Nephrotoxics Monitor renal parameters Transfuse I unit PADMA: Cholelithiasis. 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, consistent with angiomyolipoma no Edmonson Subjective ROS Limited/Unobtainable: No Constitutional: Reports: malaise, weakness Objective Objective Last 24 Hour Vital Signs Date Time Temp Pulse Resp B/P (MAP) Pulse Ox O2 Delivery O2 Flow Rate FiO2 03/15/18 10:25 96 156/74 03/15/18 07:08 Nasal Cannula 2.0 28 03/15/18 07:07 100 Nasal Cannula 2.0 28 03/15/18 07:00 88 14 139/60 (86) 100 03/15/18 06:00 98 16 186/65 (105) 100 03/15/18 05:00 99.6 91 15 165/71 (102) 100 03/15/18 04:00 96 20 150/59 (89) 100 03/15/18 04:00 Nasal Cannula 2.0 03/15/18 04:00 95 03/15/18 03:00 94 20 145/59 (87) 100 03/15/18 02:00 99 23 136/54 (81) 99 03/15/18 01:00 91 19 146/45 (78) 100 03/15/18 00:00 Nasal Cannula 2.0 03/15/18 00:00 99.1 102 14 171/66 (101) 100 03/14/18 23:00 98 15 151/77 (101) 100 03/14/18 22:00 91 14 157/70 (99) 100 03/14/18 21:00 89 13 150/58 (88) 100 03/14/18 20:00 90 03/14/18 20:00 Nasal Cannula 2.0 03/14/18 20:00 98.5 91 14 151/56 (87) 100 03/14/18 19:55 150/55 03/14/18 19:49 100 Nasal Cannula 2.0 28 03/14/18 19:49 91 20 Nasal Cannula 2.0 28 03/14/18 19:49 Nasal Cannula 2.0 28 03/14/18 19:00 90 24 150/55 (86) 100 03/14/18 18:00 87 20 154/59 (90) 100 03/14/18 17:18 85 142/55 03/14/18 17:00 85 19 142/55 (84) 100 03/14/18 16:00 99.0 84 22 149/63 (91) 100 03/14/18 16:00 87 03/14/18 16:00 Nasal Cannula 2.0 03/14/18 15:00 76 35 135/42 (73) 100 03/14/18 14:00 79 35 139/43 (75) 100 03/14/18 13:33 148/47 03/14/18 13:00 79 21 148/47 (80) 100 03/14/18 12:00 99.0 87 18 142/54 (83) 100 03/14/18 12:00 Nasal Cannula 2.0 03/14/18 12:00 82 03/14/18 11:00 83 25 151/58 (89) 100 Intake and Output 03/14/18 03/15/18 19:00 07:00 Intake Total 1725 ml 1715 ml Output Total 500 ml 575 ml Balance 1225 ml 1140 ml Intake Free Water 200 ml IV Total 1365 ml 1155 ml Tube Feeding 360 ml 360 ml Output Urine Total 500 ml 575 ml # Bowel Movements 3 Laboratory Tests 03/15/18 04:00: White Blood Count 14.6H, Red Blood Count 2.89L, Hemoglobin 8.0L, Hematocrit 24.3L, Mean Corpuscular Volume 84, Mean Corpuscular Hemoglobin 27.6, Mean Corpuscular Hemoglobin Concent 32.8, Red Cell Distribution Width 13.5, Platelet Count 185, Mean Platelet Volume 8.4, Neutrophils (%) (Auto) 72.4, Lymphocytes (% ) (Auto) 16.9L, Monocytes (%) (Auto) 6.9, Eosinophils (%) (Auto) 2.9, Basophils (%) (Auto) 0.9, Sodium Level 143, Potassium Level 4.0, Chloride Level 113H, Carbon Dioxide Level 20L, Anion Gap 10, Blood Urea Nitrogen 46H, Creatinine 1.9H , Estimat Glomerular Filtration Rate , Glucose Level 174H, Calcium Level 8.2L, Phosphorus Level 3.1, Magnesium Level 1.8, Total Bilirubin 0.3, Aspartate Amino Transf (AST/SGOT) 37, Alanine Aminotransferase (ALT/SGPT) 40, Alkaline Phosphatase 131H, Pro-B-Type Natriuretic Peptide 6181H, Total Protein 5.2L, Albumin 1.8L, Globulin 3.4, Albumin/Globulin Ratio 0.5L, Random Vancomycin Level 18.3 Height (Feet): 5 Height (Inches): 10.00 Weight (Pounds): 165 Cardiovascular: tachycardia Respiratory/Chest: decreased breath sounds Abdomen: distended Objective no change Phil Ortiz MD Mar 15, 2018 10:54
--- NOTE | 2018-03-15 10:57 | Infectious Diseases Prog Note ---
Assessment/Plan Assessment/Plan A; Septic shock, off pressor Candidal sepsis UTI with MRSA & Citrobacter Acute respiratory failure Acute renal failure Chronic kidney disease Elevated transaminase Dementia P; Continue Meropenem, Micafungin & Vancomycin with F/U cultures repeat blood culture Subjective ROS Limited/Unobtainable: Yes Allergies: Coded Allergies: PENICILLINS (Unverified Allergy, Mild, 12/04/12) Objective Vital Signs Last 24 Hour Vital Signs Date Time Temp Pulse Resp B/P (MAP) Pulse Ox O2 Delivery O2 Flow Rate FiO2 03/15/18 10:25 96 156/74 03/15/18 07:08 Nasal Cannula 2.0 28 03/15/18 07:07 100 Nasal Cannula 2.0 28 03/15/18 07:00 88 14 139/60 (86) 100 03/15/18 06:00 98 16 186/65 (105) 100 03/15/18 05:00 99.6 91 15 165/71 (102) 100 03/15/18 04:00 96 20 150/59 (89) 100 03/15/18 04:00 Nasal Cannula 2.0 03/15/18 04:00 95 03/15/18 03:00 94 20 145/59 (87) 100 03/15/18 02:00 99 23 136/54 (81) 99 03/15/18 01:00 91 19 146/45 (78) 100 03/15/18 00:00 Nasal Cannula 2.0 03/15/18 00:00 99.1 102 14 171/66 (101) 100 03/14/18 23:00 98 15 151/77 (101) 100 03/14/18 22:00 91 14 157/70 (99) 100 03/14/18 21:00 89 13 150/58 (88) 100 03/14/18 20:00 90 03/14/18 20:00 Nasal Cannula 2.0 03/14/18 20:00 98.5 91 14 151/56 (87) 100 03/14/18 19:55 150/55 03/14/18 19:49 100 Nasal Cannula 2.0 28 03/14/18 19:49 91 20 Nasal Cannula 2.0 28 03/14/18 19:49 Nasal Cannula 2.0 28 03/14/18 19:00 90 24 150/55 (86) 100 03/14/18 18:00 87 20 154/59 (90) 100 03/14/18 17:18 85 142/55 03/14/18 17:00 85 19 142/55 (84) 100 03/14/18 16:00 99.0 84 22 149/63 (91) 100 03/14/18 16:00 87 03/14/18 16:00 Nasal Cannula 2.0 03/14/18 15:00 76 35 135/42 (73) 100 03/14/18 14:00 79 35 139/43 (75) 100 03/14/18 13:33 148/47 03/14/18 13:00 79 21 148/47 (80) 100 03/14/18 12:00 99.0 87 18 142/54 (83) 100 03/14/18 12:00 Nasal Cannula 2.0 03/14/18 12:00 82 03/14/18 11:00 83 25 151/58 (89) 100 Height (Feet): 5 Height (Inches): 10.00 Weight (Pounds): 165 General Appearance: no acute distress HEENT: mucous membranes moist Respiratory/Chest: lungs clear Cardiovascular: normal rate Abdomen: soft, non tender, other - GT & rectal tubes Extremities: other - PICC line Neurologic/Psychiatric: motor weakness, aphasia, other - in right side Microbiology Date/Time Source Procedure Growth Status 03/12/18 22:45 Stool Clostridium difficile Toxin Assay - Final Complete 03/13/18 19:48 Femoral Central Catheter Tip Culture - Preliminary NO GROWTH Resulted Laboratory Tests Test 03/15/18 04:00 White Blood Count 14.6 K/UL (4.8-10.8) H Red Blood Count 2.89 M/UL (4.20-5.40) L Hemoglobin 8.0 G/DL (12.0-16.0) L Hematocrit 24.3 % (37.0-47.0) L Mean Corpuscular Volume 84 FL (80-99) Mean Corpuscular Hemoglobin 27.6 PG (27.0-31.0) Mean Corpuscular Hemoglobin Concent 32.8 G/DL (32.0-36.0) Red Cell Distribution Width 13.5 % (11.6-14.8) Platelet Count 185 K/UL (150-450) Mean Platelet Volume 8.4 FL (6.5-10.1) Neutrophils (%) (Auto) 72.4 % (45.0-75.0) Lymphocytes (%) (Auto) 16.9 % (20.0-45.0) L Monocytes (%) (Auto) 6.9 % (1.0-10.0) Eosinophils (%) (Auto) 2.9 % (0.0-3.0) Basophils (%) (Auto) 0.9 % (0.0-2.0) Sodium Level 143 MMOL/L (136-145) Potassium Level 4.0 MMOL/L (3.5-5.1) Chloride Level 113 MMOL/L (98-107) H Carbon Dioxide Level 20 MMOL/L (21-32) L Anion Gap 10 mmol/L (5-15) Blood Urea Nitrogen 46 mg/dL (7-18) H Creatinine 1.9 MG/DL (0.55-1.30) H Estimat Glomerular Filtration Rate mL/min (>60) Glucose Level 174 MG/DL (74-106) H Calcium Level 8.2 MG/DL (8.5-10.1) L Phosphorus Level 3.1 MG/DL (2.5-4.9) Magnesium Level 1.8 MG/DL (1.8-2.4) Total Bilirubin 0.3 MG/DL (0.2-1.0) Aspartate Amino Transf (AST/SGOT) 37 U/L (15-37) Alanine Aminotransferase (ALT/SGPT) 40 U/L (12-78) Alkaline Phosphatase 131 U/L (46-116) H Pro-B-Type Natriuretic Peptide 6181 pg/mL (0-125) H Total Protein 5.2 G/DL (6.4-8.2) L Albumin 1.8 G/DL (3.4-5.0) L Globulin 3.4 g/dL Albumin/Globulin Ratio 0.5 (1.0-2.7) L Random Vancomycin Level 18.3 ug/mL Current Medications Medications (Trade) Dose Ordered Sig/Gelacio Route PRN Reason Start Time Stop Time Status Last Admin Dose Admin Acetaminophen (Tylenol) 650 mg Q6H PRN GT FEVER 03/08/18 15:15 04/07/18 15:14 03/14/18 08:26 Albuterol/ Ipratropium (Albuterol/ Ipratropium) 3 ml Q4H PRN HHN Shortness of Breath 03/13/18 16:30 03/18/18 16:29 03/13/18 17:18 Amlodipine Besylate (Norvasc) 5 mg BID GT 03/13/18 18:00 04/12/18 08:59 03/15/18 10:25 Aspirin (ASA) 81 mg DAILY NG 03/09/18 09:00 04/08/18 08:59 03/15/18 10:30 Chlorhexidine Gluconate (Xiomara-Hex 2%) 1 applic DAILY@2000 TOPIC 03/08/18 22:30 04/08/18 22:29 03/14/18 20:07 Dextrose (Dextrose 50%) 25 ml Q30M PRN IV Hypoglycemia 03/08/18 15:15 04/07/18 15:14 Dextrose (Dextrose 50%) 50 ml Q30M PRN IV Hypoglycemia 03/08/18 15:15 04/07/18 15:14 Dextrose/ Electrolytes 1,000 ml @ 50 mls/hr Q20H IV 03/15/18 11:00 04/12/18 10:59 Heparin Sodium (Porcine) (Heparin 5000 units/ml) 5,000 units EVERY 12 HOURS SUBQ 03/08/18 21:00 04/07/18 20:59 03/15/18 10:30 Insulin Aspart (NovoLOG) Q6HR SUBQ 03/12/18 12:00 04/11/18 11:59 03/15/18 05:36 Levetiracetam (Keppra) 750 mg Q12HR GT 03/08/18 21:00 04/07/18 20:59 03/15/18 10:24 Meropenem 500 mg/ Sodium Chloride 55 ml @ 110 mls/hr Q12H IVPB 03/10/18 10:00 03/18/18 09:59 03/15/18 10:23 Micafungin Sodium 100 mg/Sodium Chloride 110 ml @ 110 mls/hr Q24H IVPB 03/11/18 10:00 03/18/18 09:59 03/15/18 10:23 Nitroglycerin (Ntg) 1 patch Q24H TDERMAL 03/11/18 13:00 04/10/18 12:59 03/14/18 13:33 Norepinephrine Bitartrate 4 mg/ Dextrose 250 ml @ 0 mls/hr Q24H IV 03/08/18 20:34 04/07/18 20:33 03/09/18 12:53 Ondansetron HCl (Zofran) 4 mg Q6H PRN IVP Nausea & Vomiting 03/08/18 15:15 04/07/18 15:14 Pantoprazole (Protonix) 40 mg EVERY 12 HOURS IVP 03/08/18 21:00 04/07/18 20:59 03/15/18 10:25 Quetiapine Fumarate (SEROquel) 12.5 mg Q4H PRN ORAL agitation 03/09/18 19:45 04/08/18 19:44 03/15/18 00:37 Sodium Citrate (Bicitra) 30 ml EVERY 6 HOURS NG 03/11/18 12:45 04/10/18 12:44 03/15/18 05:34 Vancomycin HCl (Vanco rx to dose) 1 ea DAILY PRN MISC Per rx protocol 03/11/18 14:00 04/10/18 13:59 Vancomycin HCl 1 gm/Dextrose 275 ml @ 183.708 mls/hr ONCE ONCE IVPB 03/16/18 08:00 03/16/18 09:29 Wilder French MD Mar 15, 2018 10:57
--- NOTE | 2018-03-15 10:58 | General Progress Note ---
Assessment/Plan Assessment/Plan # Anemia of chronic disease -- baseline appears to be 11-12 reviewed labs from 2012 --> at this time decreased, anemia panel has been reviewed and acd --> transfuse as needed, hgb goal >7 --> no evidence of hemolysis noted --> Blood tx: 03/10 --> no evidence of anita bleeding --> monitor coagulopathy # Elevated PTT, coagulopathy --> recheck PTT, if still elevated, may be a factor deficiency --> check for factors that are in the extrinsic pathway # Leukocytosis likely related to septic shock --> Remains elevated --> on abx and ivf --> appreciate ID recs and workup # Thrombocytopenia likely related to infection, appears baseline 100-150k --> imaging has been reviewed --> medications have been reviewed --> hepatitis panel reviewed from before # Abnormal LFTs --> Currently has normalized. --> likely shock liver from overt sepsis --> trend labs # Decubitus ulcer of sacral region, unstageable, 5cm x 4cm unstagable sacral decubitus ulcer, no drainage, mild periedge edema/erythema, soft, no odor present upon admission. will be cared for during hospital sta # Severe sepsis --> on abx as per ID # Respiratory failure. extubated --> as per pulm Greatly appreciate consultation! Subjective Allergies: Coded Allergies: PENICILLINS (Unverified Allergy, Mild, 12/04/12) Subjective Pt remains in ICU. Remains extubated. H/H stable. On abx. Objective Last 24 Hour Vital Signs Date Time Temp Pulse Resp B/P (MAP) Pulse Ox O2 Delivery O2 Flow Rate FiO2 03/15/18 10:25 96 156/74 03/15/18 07:08 Nasal Cannula 2.0 28 03/15/18 07:07 100 Nasal Cannula 2.0 28 03/15/18 07:00 88 14 139/60 (86) 100 03/15/18 06:00 98 16 186/65 (105) 100 03/15/18 05:00 99.6 91 15 165/71 (102) 100 03/15/18 04:00 96 20 150/59 (89) 100 03/15/18 04:00 Nasal Cannula 2.0 03/15/18 04:00 95 03/15/18 03:00 94 20 145/59 (87) 100 03/15/18 02:00 99 23 136/54 (81) 99 03/15/18 01:00 91 19 146/45 (78) 100 03/15/18 00:00 Nasal Cannula 2.0 03/15/18 00:00 99.1 102 14 171/66 (101) 100 03/14/18 23:00 98 15 151/77 (101) 100 03/14/18 22:00 91 14 157/70 (99) 100 03/14/18 21:00 89 13 150/58 (88) 100 03/14/18 20:00 90 03/14/18 20:00 Nasal Cannula 2.0 03/14/18 20:00 98.5 91 14 151/56 (87) 100 03/14/18 19:55 150/55 03/14/18 19:49 100 Nasal Cannula 2.0 28 03/14/18 19:49 91 20 Nasal Cannula 2.0 28 03/14/18 19:49 Nasal Cannula 2.0 28 03/14/18 19:00 90 24 150/55 (86) 100 03/14/18 18:00 87 20 154/59 (90) 100 03/14/18 17:18 85 142/55 03/14/18 17:00 85 19 142/55 (84) 100 03/14/18 16:00 99.0 84 22 149/63 (91) 100 03/14/18 16:00 87 03/14/18 16:00 Nasal Cannula 2.0 03/14/18 15:00 76 35 135/42 (73) 100 03/14/18 14:00 79 35 139/43 (75) 100 03/14/18 13:33 148/47 03/14/18 13:00 79 21 148/47 (80) 100 03/14/18 12:00 99.0 87 18 142/54 (83) 100 03/14/18 12:00 Nasal Cannula 2.0 03/14/18 12:00 82 03/14/18 11:00 83 25 151/58 (89) 100 Intake and Output 03/14/18 03/15/18 19:00 07:00 Intake Total 1725 ml 1715 ml Output Total 500 ml 575 ml Balance 1225 ml 1140 ml Intake Free Water 200 ml IV Total 1365 ml 1155 ml Tube Feeding 360 ml 360 ml Output Urine Total 500 ml 575 ml # Bowel Movements 3 Laboratory Tests 03/15/18 04:00: White Blood Count 14.6H, Red Blood Count 2.89L, Hemoglobin 8.0L, Hematocrit 24.3L, Mean Corpuscular Volume 84, Mean Corpuscular Hemoglobin 27.6, Mean Corpuscular Hemoglobin Concent 32.8, Red Cell Distribution Width 13.5, Platelet Count 185, Mean Platelet Volume 8.4, Neutrophils (%) (Auto) 72.4, Lymphocytes (% ) (Auto) 16.9L, Monocytes (%) (Auto) 6.9, Eosinophils (%) (Auto) 2.9, Basophils (%) (Auto) 0.9, Sodium Level 143, Potassium Level 4.0, Chloride Level 113H, Carbon Dioxide Level 20L, Anion Gap 10, Blood Urea Nitrogen 46H, Creatinine 1.9H , Estimat Glomerular Filtration Rate , Glucose Level 174H, Calcium Level 8.2L, Phosphorus Level 3.1, Magnesium Level 1.8, Total Bilirubin 0.3, Aspartate Amino Transf (AST/SGOT) 37, Alanine Aminotransferase (ALT/SGPT) 40, Alkaline Phosphatase 131H, Pro-B-Type Natriuretic Peptide 6181H, Total Protein 5.2L, Albumin 1.8L, Globulin 3.4, Albumin/Globulin Ratio 0.5L, Random Vancomycin Level 18.3 Height (Feet): 5 Height (Inches): 10.00 Weight (Pounds): 165 General Appearance: no apparent distress EENT: TMs normal Neck: normal alignment Cardiovascular: normal rate Respiratory/Chest: no respiratory distress Abdomen: non tender Extremities: non-tender Edema: no edema noted Leg (L), no edema noted Leg (R) Edema: mild edema Neurologic: no motor/sensory deficits Skin: warm/dry Objective trach, peg Aleksandr Kern MD Mar 15, 2018 10:58
[2018-03-15] MEDS ORDERED: D5W w/KCl 20mEq 1,000 ML IV SCH (11:00)
--- NOTE | 2018-03-15 13:05 | General Progress Note ---
Assessment/Plan Problem List: (1) Seizure disorder ICD Codes: G40.909 - Epilepsy, unspecified, not intractable, without status epilepticus SNOMED: 944458155 (2) Encephalopathy due to metabolic factor or toxin SNOMED: 019643229 Assessment/Plan (1) Seizure disorder ICD Codes: G40.909 - Epilepsy, unspecified, not intractable, without status epilepticus SNOMED: 898849638 (2) Encephalopathy due to metabolic factor or toxin SNOMED: 054554918 Status: unchanged Assessment/Plan seroquel prn Subjective Date patient seen: Mar 15, 2018 Allergies: Coded Allergies: PENICILLINS (Unverified Allergy, Mild, 12/04/12) Objective Last 24 Hour Vital Signs Date Time Temp Pulse Resp B/P (MAP) Pulse Ox O2 Delivery O2 Flow Rate FiO2 03/15/18 10:25 96 156/74 03/15/18 07:08 Nasal Cannula 2.0 28 03/15/18 07:07 100 Nasal Cannula 2.0 28 03/15/18 07:00 88 14 139/60 (86) 100 03/15/18 06:00 98 16 186/65 (105) 100 03/15/18 05:00 99.6 91 15 165/71 (102) 100 03/15/18 04:00 96 20 150/59 (89) 100 03/15/18 04:00 Nasal Cannula 2.0 03/15/18 04:00 95 03/15/18 03:00 94 20 145/59 (87) 100 03/15/18 02:00 99 23 136/54 (81) 99 03/15/18 01:00 91 19 146/45 (78) 100 03/15/18 00:00 Nasal Cannula 2.0 03/15/18 00:00 99.1 102 14 171/66 (101) 100 03/14/18 23:00 98 15 151/77 (101) 100 03/14/18 22:00 91 14 157/70 (99) 100 03/14/18 21:00 89 13 150/58 (88) 100 03/14/18 20:00 90 03/14/18 20:00 Nasal Cannula 2.0 03/14/18 20:00 98.5 91 14 151/56 (87) 100 03/14/18 19:55 150/55 03/14/18 19:49 100 Nasal Cannula 2.0 28 03/14/18 19:49 91 20 Nasal Cannula 2.0 28 03/14/18 19:49 Nasal Cannula 2.0 28 03/14/18 19:00 90 24 150/55 (86) 100 03/14/18 18:00 87 20 154/59 (90) 100 03/14/18 17:18 85 142/55 03/14/18 17:00 85 19 142/55 (84) 100 03/14/18 16:00 99.0 84 22 149/63 (91) 100 03/14/18 16:00 87 03/14/18 16:00 Nasal Cannula 2.0 03/14/18 15:00 76 35 135/42 (73) 100 03/14/18 14:00 79 35 139/43 (75) 100 03/14/18 13:33 148/47 Intake and Output 03/14/18 03/15/18 19:00 07:00 Intake Total 1725 ml 1715 ml Output Total 500 ml 575 ml Balance 1225 ml 1140 ml Intake Free Water 200 ml IV Total 1365 ml 1155 ml Tube Feeding 360 ml 360 ml Output Urine Total 500 ml 575 ml # Bowel Movements 3 Laboratory Tests 03/15/18 04:00: White Blood Count 14.6H, Red Blood Count 2.89L, Hemoglobin 8.0L, Hematocrit 24.3L, Mean Corpuscular Volume 84, Mean Corpuscular Hemoglobin 27.6, Mean Corpuscular Hemoglobin Concent 32.8, Red Cell Distribution Width 13.5, Platelet Count 185, Mean Platelet Volume 8.4, Neutrophils (%) (Auto) 72.4, Lymphocytes (% ) (Auto) 16.9L, Monocytes (%) (Auto) 6.9, Eosinophils (%) (Auto) 2.9, Basophils (%) (Auto) 0.9, Sodium Level 143, Potassium Level 4.0, Chloride Level 113H, Carbon Dioxide Level 20L, Anion Gap 10, Blood Urea Nitrogen 46H, Creatinine 1.9H , Estimat Glomerular Filtration Rate , Glucose Level 174H, Calcium Level 8.2L, Phosphorus Level 3.1, Magnesium Level 1.8, Total Bilirubin 0.3, Aspartate Amino Transf (AST/SGOT) 37, Alanine Aminotransferase (ALT/SGPT) 40, Alkaline Phosphatase 131H, Pro-B-Type Natriuretic Peptide 6181H, Total Protein 5.2L, Albumin 1.8L, Globulin 3.4, Albumin/Globulin Ratio 0.5L, Random Vancomycin Level 18.3 Height (Feet): 5 Height (Inches): 10.00 Weight (Pounds): 165 General Appearance: no apparent distress, lethargic, confused China Kidd MD Mar 15, 2018 13:04
[2018-03-15] MEDS: Nitroglycerin Patch 0.4mg TDERMAL SCH (13:30)
--- NOTE | 2018-03-15 14:57 | Pulmonolgy Critical Care Note ---
Critical Care - Asmt/Plan Problems: (1) residential resident (2) Anemia (3) PEG (percutaneous endoscopic gastrostomy) status (4) Seizure disorder (5) CKD (chronic kidney disease) (6) MARK (acute kidney injury) (7) Severe sepsis (8) UTI (urinary tract infection) (9) Respiratory failure (10) NSTEMI (non-ST elevated myocardial infarction) Assessment/Plan: ASSESSMENT: * SIRS/SEPSIS * Shock, likely septic * VDRF, extubated 03/13 * MSOF * MARK on CKD * Abnormal LFT's - IMPROVED * NSTEMI, likely demand ischemia * Mild PVC on CXR & elevated BNP but clinically appears dry * ? ADHF * Sz DO * NHR * Bedbound @ baseline * Anemia * S/P GT PLAN: * Optimize pulmonary hygiene/mobilize as tolerated * Titrate down FiO2 to keep SaO2 > 92% * PRN HHN's * Off NE * Monitor volumes and renal function * GT BICITRA per renal * F/U renal recs, replete electrolytes and free water * F/U cards recs * Vanco, Elías, Linda per ID, monitor WCt * GTF's * Continue HEP SQ * Continue AED's * FC * TTTele * CCT 35 Critical Care - Objective Last 24 Hour Vital Signs Date Time Temp Pulse Resp B/P (MAP) Pulse Ox O2 Delivery O2 Flow Rate FiO2 03/15/18 14:00 97 25 168/54 (92) 98 03/15/18 13:30 152/82 03/15/18 13:00 92 23 152/82 (105) 100 03/15/18 12:00 99.6 99 22 161/59 (93) 100 03/15/18 12:00 100 03/15/18 12:00 Nasal Cannula 2.0 03/15/18 11:00 97 23 154/48 (83) 100 03/15/18 10:25 96 156/74 03/15/18 10:00 94 21 156/74 (101) 100 03/15/18 09:00 99 16 165/72 (103) 100 03/15/18 08:00 99.1 86 20 158/53 (88) 100 03/15/18 08:00 91 03/15/18 08:00 Nasal Cannula 2.0 03/15/18 07:08 Nasal Cannula 2.0 28 03/15/18 07:07 100 Nasal Cannula 2.0 28 03/15/18 07:00 88 14 139/60 (86) 100 03/15/18 06:00 98 16 186/65 (105) 100 03/15/18 05:00 99.6 91 15 165/71 (102) 100 03/15/18 04:00 96 20 150/59 (89) 100 03/15/18 04:00 Nasal Cannula 2.0 03/15/18 04:00 95 03/15/18 03:00 94 20 145/59 (87) 100 03/15/18 02:00 99 23 136/54 (81) 99 03/15/18 01:00 91 19 146/45 (78) 100 03/15/18 00:00 Nasal Cannula 2.0 03/15/18 00:00 99.1 102 14 171/66 (101) 100 03/14/18 23:00 98 15 151/77 (101) 100 03/14/18 22:00 91 14 157/70 (99) 100 03/14/18 21:00 89 13 150/58 (88) 100 03/14/18 20:00 90 03/14/18 20:00 Nasal Cannula 2.0 03/14/18 20:00 98.5 91 14 151/56 (87) 100 03/14/18 19:55 150/55 03/14/18 19:49 100 Nasal Cannula 2.0 28 03/14/18 19:49 91 20 Nasal Cannula 2.0 28 03/14/18 19:49 Nasal Cannula 2.0 28 03/14/18 19:00 90 24 150/55 (86) 100 03/14/18 18:00 87 20 154/59 (90) 100 03/14/18 17:18 85 142/55 03/14/18 17:00 85 19 142/55 (84) 100 03/14/18 16:00 99.0 84 22 149/63 (91) 100 03/14/18 16:00 87 03/14/18 16:00 Nasal Cannula 2.0 03/14/18 15:00 76 35 135/42 (73) 100 Status: awake Condition: improving Neck: full ROM Lungs: clear Heart: HR/BP stable Abdomen: soft, non-tender, active bowel sounds, feeding tube Extremities: no C/C/E Micro: Microbiology Date/Time Source Procedure Growth Status 03/12/18 22:45 Stool Clostridium difficile Toxin Assay - Final Complete 03/13/18 19:48 Femoral Central Catheter Tip Culture - Preliminary NO GROWTH Resulted Accucheck: 213 Blood Sugars: BS controlled Critical Care - Subjective ROS Limited/Unobtainable: Yes ICU Day: 8 Intubation Day: extubated Interval Events: AFSSS, O2 needs stable, chet TF's, no secretions, no distress WCt 14, mild loose bowel OP, C diff neg Condition: stable IV Access: PICC EKG Rhythm: Sinus Rhythm - with PVCs' FI02: 28 Vent Support Breath Rate: 0 Vent Support Mode: CPAP Vent Tidal Volume: 550 Sputum Amount: None PEEP: 5.0 PIP: 14 Fluids: [id number]@50 Tube Feeding Amount: 40 Residuals: None I&O: Intake and Output 03/14/18 03/15/18 19:00 07:00 Intake Total 1725 ml 1715 ml Output Total 500 ml 575 ml Balance 1225 ml 1140 ml Intake Free Water 200 ml IV Total 1365 ml 1155 ml Tube Feeding 360 ml 360 ml Output Urine Total 500 ml 575 ml # Bowel Movements 3 Subjective: KARRIE ET-Tube: 7.5 ET Position: 23 Labs: Laboratory Tests Test 03/15/18 04:00 White Blood Count 14.6 K/UL (4.8-10.8) H Red Blood Count 2.89 M/UL (4.20-5.40) L Hemoglobin 8.0 G/DL (12.0-16.0) L Hematocrit 24.3 % (37.0-47.0) L Mean Corpuscular Volume 84 FL (80-99) Mean Corpuscular Hemoglobin 27.6 PG (27.0-31.0) Mean Corpuscular Hemoglobin Concent 32.8 G/DL (32.0-36.0) Red Cell Distribution Width 13.5 % (11.6-14.8) Platelet Count 185 K/UL (150-450) Mean Platelet Volume 8.4 FL (6.5-10.1) Neutrophils (%) (Auto) 72.4 % (45.0-75.0) Lymphocytes (%) (Auto) 16.9 % (20.0-45.0) L Monocytes (%) (Auto) 6.9 % (1.0-10.0) Eosinophils (%) (Auto) 2.9 % (0.0-3.0) Basophils (%) (Auto) 0.9 % (0.0-2.0) Sodium Level 143 MMOL/L (136-145) Potassium Level 4.0 MMOL/L (3.5-5.1) Chloride Level 113 MMOL/L (98-107) H Carbon Dioxide Level 20 MMOL/L (21-32) L Anion Gap 10 mmol/L (5-15) Blood Urea Nitrogen 46 mg/dL (7-18) H Creatinine 1.9 MG/DL (0.55-1.30) H Estimat Glomerular Filtration Rate mL/min (>60) Glucose Level 174 MG/DL (74-106) H Calcium Level 8.2 MG/DL (8.5-10.1) L Phosphorus Level 3.1 MG/DL (2.5-4.9) Magnesium Level 1.8 MG/DL (1.8-2.4) Total Bilirubin 0.3 MG/DL (0.2-1.0) Aspartate Amino Transf (AST/SGOT) 37 U/L (15-37) Alanine Aminotransferase (ALT/SGPT) 40 U/L (12-78) Alkaline Phosphatase 131 U/L (46-116) H Pro-B-Type Natriuretic Peptide 6181 pg/mL (0-125) H Total Protein 5.2 G/DL (6.4-8.2) L Albumin 1.8 G/DL (3.4-5.0) L Globulin 3.4 g/dL Albumin/Globulin Ratio 0.5 (1.0-2.7) L Random Vancomycin Level 18.3 ug/mL Javon Gan MD Mar 15, 2018 14:57
--- NOTE | 2018-03-15 16:12 | General Surgery Progress Note ---
General Surgery-Progress Note Subjective Symptoms: improved Additional Comments much more comfortable today. leukocytosis worsening renal function improved. Objective Last 24 Hour Vital Signs Date Time Temp Pulse Resp B/P (MAP) Pulse Ox O2 Delivery O2 Flow Rate FiO2 03/15/18 14:00 97 25 168/54 (92) 98 03/15/18 13:30 152/82 03/15/18 13:00 92 23 152/82 (105) 100 03/15/18 12:00 99.6 99 22 161/59 (93) 100 03/15/18 12:00 100 03/15/18 12:00 Nasal Cannula 2.0 03/15/18 11:00 97 23 154/48 (83) 100 03/15/18 10:25 96 156/74 03/15/18 10:00 94 21 156/74 (101) 100 03/15/18 09:00 99 16 165/72 (103) 100 03/15/18 08:00 99.1 86 20 158/53 (88) 100 03/15/18 08:00 91 03/15/18 08:00 Nasal Cannula 2.0 03/15/18 07:08 Nasal Cannula 2.0 28 03/15/18 07:07 100 Nasal Cannula 2.0 28 03/15/18 07:00 88 14 139/60 (86) 100 03/15/18 06:00 98 16 186/65 (105) 100 03/15/18 05:00 99.6 91 15 165/71 (102) 100 03/15/18 04:00 96 20 150/59 (89) 100 03/15/18 04:00 Nasal Cannula 2.0 03/15/18 04:00 95 03/15/18 03:00 94 20 145/59 (87) 100 03/15/18 02:00 99 23 136/54 (81) 99 03/15/18 01:00 91 19 146/45 (78) 100 03/15/18 00:00 Nasal Cannula 2.0 03/15/18 00:00 99.1 102 14 171/66 (101) 100 03/14/18 23:00 98 15 151/77 (101) 100 03/14/18 22:00 91 14 157/70 (99) 100 03/14/18 21:00 89 13 150/58 (88) 100 03/14/18 20:00 90 03/14/18 20:00 Nasal Cannula 2.0 03/14/18 20:00 98.5 91 14 151/56 (87) 100 03/14/18 19:55 150/55 03/14/18 19:49 100 Nasal Cannula 2.0 28 03/14/18 19:49 91 20 Nasal Cannula 2.0 28 03/14/18 19:49 Nasal Cannula 2.0 28 03/14/18 19:00 90 24 150/55 (86) 100 03/14/18 18:00 87 20 154/59 (90) 100 03/14/18 17:18 85 142/55 03/14/18 17:00 85 19 142/55 (84) 100 I&O Intake and Output 03/14/18 03/15/18 19:00 07:00 Intake Total 1725 ml 1715 ml Output Total 500 ml 575 ml Balance 1225 ml 1140 ml Intake Free Water 200 ml IV Total 1365 ml 1155 ml Tube Feeding 360 ml 360 ml Output Urine Total 500 ml 575 ml # Bowel Movements 3 Dressing: saturated Wound: other Drains: other Cardiovascular: RSR Respiratory: clear Abdomen: soft, flat, present bowel sounds Extremities: no cyanosis Laboratory Tests Test 03/15/18 04:00 White Blood Count 14.6 K/UL (4.8-10.8) H Red Blood Count 2.89 M/UL (4.20-5.40) L Hemoglobin 8.0 G/DL (12.0-16.0) L Hematocrit 24.3 % (37.0-47.0) L Mean Corpuscular Volume 84 FL (80-99) Mean Corpuscular Hemoglobin 27.6 PG (27.0-31.0) Mean Corpuscular Hemoglobin Concent 32.8 G/DL (32.0-36.0) Red Cell Distribution Width 13.5 % (11.6-14.8) Platelet Count 185 K/UL (150-450) Mean Platelet Volume 8.4 FL (6.5-10.1) Neutrophils (%) (Auto) 72.4 % (45.0-75.0) Lymphocytes (%) (Auto) 16.9 % (20.0-45.0) L Monocytes (%) (Auto) 6.9 % (1.0-10.0) Eosinophils (%) (Auto) 2.9 % (0.0-3.0) Basophils (%) (Auto) 0.9 % (0.0-2.0) Sodium Level 143 MMOL/L (136-145) Potassium Level 4.0 MMOL/L (3.5-5.1) Chloride Level 113 MMOL/L (98-107) H Carbon Dioxide Level 20 MMOL/L (21-32) L Anion Gap 10 mmol/L (5-15) Blood Urea Nitrogen 46 mg/dL (7-18) H Creatinine 1.9 MG/DL (0.55-1.30) H Estimat Glomerular Filtration Rate mL/min (>60) Glucose Level 174 MG/DL (74-106) H Calcium Level 8.2 MG/DL (8.5-10.1) L Phosphorus Level 3.1 MG/DL (2.5-4.9) Magnesium Level 1.8 MG/DL (1.8-2.4) Total Bilirubin 0.3 MG/DL (0.2-1.0) Aspartate Amino Transf (AST/SGOT) 37 U/L (15-37) Alanine Aminotransferase (ALT/SGPT) 40 U/L (12-78) Alkaline Phosphatase 131 U/L (46-116) H Pro-B-Type Natriuretic Peptide 6181 pg/mL (0-125) H Total Protein 5.2 G/DL (6.4-8.2) L Albumin 1.8 G/DL (3.4-5.0) L Globulin 3.4 g/dL Albumin/Globulin Ratio 0.5 (1.0-2.7) L Random Vancomycin Level 18.3 ug/mL Plan Problems: (1) Abnormal LFTs Assessment & Plan: likely shock liver from overt sepsis. labs improving abdominal ultrasound reviewed recovering / resolved (2) Decubitus ulcer of sacral region, unstageable Assessment & Plan: full thickness pressure injury (L)4cm x(W)3.4cm with approx 80% yellow slough ,otherwise pink ,(+) maceration.Hyperpigmentation periwound bordered by darker skin tone. DTPI noted to L heel oozing small amt serosanguineous exudate (L)6cm x (W)9cm.Wound bed fluctuant.DTPI noted to medial R heel (L)2cm x (W)2.5cm dry area noted along border but wound is fluctuant centrally. present upon admission. will be cared for during hospital stay will plan for debridement once stable unlikely etiology of leukocytosis wound improving since admission Tx.Plan: Cleanse sacral wound with Saline.Apply Therahoney gel .Apply Cavilon to borders .Cover with Optifoam drsg Daily and prn. Apply Cavilon wipe to R and L heels. Cover with Biatain drsg.Change prn. Reposition at least every 2hours or as tolerated. Off-load heels with pillow. (3) Severe sepsis Assessment & Plan: improving leukocytosis today. Jean Marie Park Mar 15, 2018 16:12
[2018-03-15] MEDS ORDERED: Acetaminophen 650mg/20.3ml GT PRN (17:30)
[2018-03-15] MEDS ORDERED: Albuterol/Ipratropium 3ml neb HHN PRN (17:30)
[2018-03-15] MEDS: Dyna-Hex 2% Top Sol 2oz TOPIC SCH (21:03)
--- NOTE | 2018-03-15 22:54 | Cardiology Progress Note ---
Assessment/Plan Assessment/Plan 1. Septic shock, continue D5W, 2D echocardiography with normal LV systolic function with normal intracardiac filling pressures. 2. Atrial fibrillation with rapid ventricular response, converted to SR, continue the current regimen. 3. History of hypertension, continue amlodipine. 4. History of diabetes mellitus. 5. NSTEMI type II, conservative management. Subjective Subjective Sinus rhythm at rate of 93. Transferred to telemetry unit. Objective Last 24 Hour Vital Signs Date Time Temp Pulse Resp B/P (MAP) Pulse Ox O2 Delivery O2 Flow Rate FiO2 03/15/18 21:37 Nasal Cannula 2.0 28 03/15/18 21:36 100 Nasal Cannula 2.0 28 03/15/18 21:00 Nasal Cannula 2.0 03/15/18 20:00 98.9 95 20 155/70 (98) 100 03/15/18 18:18 96 160/78 03/15/18 17:29 93 03/15/18 17:00 99.1 96 20 160/78 (105) 100 03/15/18 16:00 99.9 100 21 162/56 (91) 100 03/15/18 16:00 Nasal Cannula 2.0 03/15/18 15:00 97 26 158/78 (104) 100 03/15/18 14:00 97 25 168/54 (92) 98 03/15/18 13:30 152/82 03/15/18 13:00 92 23 152/82 (105) 100 03/15/18 12:00 99.6 99 22 161/59 (93) 100 03/15/18 12:00 100 03/15/18 12:00 Nasal Cannula 2.0 03/15/18 11:00 97 23 154/48 (83) 100 03/15/18 10:25 96 156/74 03/15/18 10:00 94 21 156/74 (101) 100 03/15/18 09:00 99 16 165/72 (103) 100 03/15/18 08:00 99.1 86 20 158/53 (88) 100 03/15/18 08:00 91 03/15/18 08:00 Nasal Cannula 2.0 03/15/18 07:08 Nasal Cannula 2.0 28 03/15/18 07:07 100 Nasal Cannula 2.0 28 03/15/18 07:00 88 14 139/60 (86) 100 03/15/18 06:00 98 16 186/65 (105) 100 03/15/18 05:00 99.6 91 15 165/71 (102) 100 03/15/18 04:00 96 20 150/59 (89) 100 03/15/18 04:00 Nasal Cannula 2.0 03/15/18 04:00 95 03/15/18 03:00 94 20 145/59 (87) 100 03/15/18 02:00 99 23 136/54 (81) 99 03/15/18 01:00 91 19 146/45 (78) 100 03/15/18 00:00 Nasal Cannula 2.0 03/15/18 00:00 99.1 102 14 171/66 (101) 100 03/14/18 23:00 98 15 151/77 (101) 100 Intake and Output 03/14/18 03/15/18 19:00 07:00 Intake Total 1725 ml 1715 ml Output Total 500 ml 575 ml Balance 1225 ml 1140 ml Intake Free Water 200 ml IV Total 1365 ml 1155 ml Tube Feeding 360 ml 360 ml Output Urine Total 500 ml 575 ml # Bowel Movements 3 2D Echo: LVEF 55%, Mild LVH, Grade I LVDD, RVSP 20 mmHg Laboratory Tests Test 03/15/18 04:00 White Blood Count 14.6 K/UL (4.8-10.8) H Red Blood Count 2.89 M/UL (4.20-5.40) L Hemoglobin 8.0 G/DL (12.0-16.0) L Hematocrit 24.3 % (37.0-47.0) L Mean Corpuscular Volume 84 FL (80-99) Mean Corpuscular Hemoglobin 27.6 PG (27.0-31.0) Mean Corpuscular Hemoglobin Concent 32.8 G/DL (32.0-36.0) Red Cell Distribution Width 13.5 % (11.6-14.8) Platelet Count 185 K/UL (150-450) Mean Platelet Volume 8.4 FL (6.5-10.1) Neutrophils (%) (Auto) 72.4 % (45.0-75.0) Lymphocytes (%) (Auto) 16.9 % (20.0-45.0) L Monocytes (%) (Auto) 6.9 % (1.0-10.0) Eosinophils (%) (Auto) 2.9 % (0.0-3.0) Basophils (%) (Auto) 0.9 % (0.0-2.0) Sodium Level 143 MMOL/L (136-145) Potassium Level 4.0 MMOL/L (3.5-5.1) Chloride Level 113 MMOL/L (98-107) H Carbon Dioxide Level 20 MMOL/L (21-32) L Anion Gap 10 mmol/L (5-15) Blood Urea Nitrogen 46 mg/dL (7-18) H Creatinine 1.9 MG/DL (0.55-1.30) H Estimat Glomerular Filtration Rate mL/min (>60) Glucose Level 174 MG/DL (74-106) H Calcium Level 8.2 MG/DL (8.5-10.1) L Phosphorus Level 3.1 MG/DL (2.5-4.9) Magnesium Level 1.8 MG/DL (1.8-2.4) Total Bilirubin 0.3 MG/DL (0.2-1.0) Aspartate Amino Transf (AST/SGOT) 37 U/L (15-37) Alanine Aminotransferase (ALT/SGPT) 40 U/L (12-78) Alkaline Phosphatase 131 U/L (46-116) H Pro-B-Type Natriuretic Peptide 6181 pg/mL (0-125) H Total Protein 5.2 G/DL (6.4-8.2) L Albumin 1.8 G/DL (3.4-5.0) L Globulin 3.4 g/dL Albumin/Globulin Ratio 0.5 (1.0-2.7) L Random Vancomycin Level 18.3 ug/mL Microbiology Date/Time Source Procedure Growth Status 03/13/18 19:48 Femoral Central Catheter Tip Culture - Preliminary NO GROWTH Resulted Objective HEENT: Atraumatic and normocephalic. Anicteric. Pupils are equal, round, and reactive to light and accommodation. Extraocular muscles intact. NECK: JVP less than 5 cm. No carotid bruits. Carotid upstrokes 2+ bilaterally. CARDIOVASCULAR SYSTEM: Normal S1, S2. Regular rhythm. No murmurs, gallops, or rubs. LUNGS: Diminished breath sounds in both bases. ABDOMEN: Soft, nontender, and nondistended. No hepatosplenomegaly. Positive G-tube in place. EXTREMITIES: No evidence of edema, clubbing, or cyanosis. Everett Tomas MD Mar 15, 2018 22:54
[2018-03-16] VITALS (7 sets, daily range): BP systolic 45–161; BP diastolic 62–73
[2018-03-16 05:18] LABS: HEMOGLOBIN 7.5 G/DL (12.0-16.0); MEAN CORPUSCULAR VOLUME 84 FL (80-99); PLATELET COUNT 202 K/UL (150-450); RED BLOOD COUNT 2.73 M/UL (4.20-5.40); RED CELL DISTRIBUTION WIDTH 13.5 % (11.6-14.8); WHITE BLOOD COUNT 14.5 K/UL (4.8-10.8)
[2018-03-16] MEDS: Sodium Citrate 30ml NG SCH ×3 (05:48→18:27)
[2018-03-16] MEDS: NovoLOG Insulin Flexpen SUBQ SCH ×3 (05:51→18:29)
[2018-03-16 05:52] LABS: ALANINE AMINOTRANSFERASE 52 U/L (12-78); ALBUMIN 1.7 G/DL (3.4-5.0); ALBUMIN/GLOBULIN RATIO 0.5 (1.0-2.7); ALKALINE PHOSPHATASE 158 U/L (46-116); ANION GAP 8 mmol/L (5-15); ASPARTATE AMINO TRANSFERASE 68 U/L (15-37); BILIRUBIN,TOTAL 0.3 MG/DL (0.2-1.0); BLOOD UREA NITROGEN 42 mg/dL (7-18); CALCIUM 8.2 MG/DL (8.5-10.1); CARBON DIOXIDE 22 MMOL/L (21-32); CHLORIDE 112 MMOL/L (98-107); CREATININE 1.8 MG/DL (0.55-1.30); FERRITIN 310 NG/ML (8-388); PHOSPHORUS 3.4 MG/DL (2.5-4.9); POTASSIUM 4.4 MMOL/L (3.5-5.1); SODIUM 142 MMOL/L (136-145)
[2018-03-16 06:11] LABS: % IRON SATURATION 37 % (15-50); IRON 31 ug/dL (50-175); TOTAL IRON BINDING CAPACITY 83 ug/dL (250-450)
[2018-03-16] MEDS ORDERED: Vancomycin 1gm/D5W 275ml IVPB ONE ×2 (08:00)
[2018-03-16] MEDS ORDERED: Vancomycin 1 GM in D5W 275 ML IVPB SCH (08:00)
[2018-03-16] MEDS: levETIRAcetam 500mg/5ml Liquid GT SCH ×2 (08:19→21:24)
[2018-03-16] MEDS: Aspirin Baby 81mg NG SCH (08:20)
[2018-03-16] MEDS: Pantoprazole Inj IVP SCH (08:20)
[2018-03-16] MEDS: Heparin 5000 units/ml inj SUBQ SCH ×2 (08:21→21:25)
--- NOTE | 2018-03-16 09:13 | General Progress Note ---
Assessment/Plan Assessment/Plan # Anemia of chronic disease -- baseline appears to be 11-12 reviewed labs from 2012 --> at this time decreased, anemia panel has been reviewed and acd --> transfuse as needed, hgb goal >7 --> no evidence of hemolysis noted --> Blood tx: 03/10 --> no evidence of anita bleeding --> monitor coagulopathy # Elevated PTT, coagulopathy --> recheck PTT, if still elevated, may be a factor deficiency --> check for factors that are in the extrinsic pathway # Leukocytosis likely related to septic shock --> Remains elevated --> on abx and ivf --> appreciate ID recs and workup # Thrombocytopenia likely related to infection, appears baseline 100-150k --> imaging has been reviewed --> medications have been reviewed --> hepatitis panel reviewed from before # Abnormal LFTs --> Currently has normalized. --> likely shock liver from overt sepsis --> trend labs # Decubitus ulcer of sacral region, unstageable, 5cm x 4cm unstagable sacral decubitus ulcer, no drainage, mild periedge edema/erythema, soft, no odor --> will be cared for during hospital stay --> appreciate surg recs # Severe sepsis --> on abx as per ID # Respiratory failure. extubated --> as per pulm Greatly appreciate consultation! Subjective Constitutional: Denies: no symptoms, chills, diaphoresis, fever, malaise, weakness, other HEENT: Denies: no symptoms, eye pain, blurred vision, tearing, double vision, ear pain, ear discharge, nose pain, nose congestion, throat pain, throat swelling, mouth pain, mouth swelling, other Respiratory: Denies: no symptoms, cough, orthopnea, shortness of breath, SOB with excertion, SOB at rest, sputum, stridor, wheezing, other Gastrointestinal/Abdominal: Denies: no symptoms, abdomen distended, abdominal pain, black stools, tarry stools, blood in stool, constipated, diarrhea, difficulty swallowing, nausea, poor appetite, poor fluid intake, rectal bleeding , vomiting, other Neurologic/Psychiatric: Denies: no symptoms, anxiety, depressed, emotional problems, headache, numbness, paresthesia, pre-existing deficit, seizure, tingling, tremors, weakness, other Endocrine: Denies: no symptoms, excessive sweating, flushing, intolerance to cold, intolerance to heat, increased hunger, increased thirst, increased urine, unexplained weight gain, unexplained weight loss, other Allergies: Coded Allergies: PENICILLINS (Unverified Allergy, Mild, 12/04/12) Subjective tele. exubated. breathing improved. H/H stable. On abx. Objective Last 24 Hour Vital Signs Date Time Temp Pulse Resp B/P (MAP) Pulse Ox O2 Delivery O2 Flow Rate FiO2 03/16/18 08:20 101 159/72 03/16/18 08:00 98.8 101 20 159/72 (101) 98 03/16/18 04:00 88 03/16/18 04:00 97.9 91 20 140/62 (88) 95 03/16/18 00:00 97.7 103 20 145/73 (97) 99 03/16/18 00:00 95 03/15/18 21:37 Nasal Cannula 2.0 28 03/15/18 21:36 100 Nasal Cannula 2.0 28 03/15/18 21:00 Nasal Cannula 2.0 03/15/18 20:00 98.9 95 20 155/70 (98) 100 03/15/18 20:00 99 03/15/18 18:18 96 160/78 03/15/18 17:29 93 03/15/18 17:00 99.1 96 20 160/78 (105) 100 03/15/18 16:00 99.9 100 21 162/56 (91) 100 03/15/18 16:00 Nasal Cannula 2.0 03/15/18 15:00 97 26 158/78 (104) 100 03/15/18 14:00 97 25 168/54 (92) 98 03/15/18 13:30 152/82 03/15/18 13:00 92 23 152/82 (105) 100 03/15/18 12:00 99.6 99 22 161/59 (93) 100 03/15/18 12:00 100 03/15/18 12:00 Nasal Cannula 2.0 03/15/18 11:00 97 23 154/48 (83) 100 03/15/18 10:25 96 156/74 03/15/18 10:00 94 21 156/74 (101) 100 Intake and Output 03/15/18 03/16/18 18:59 06:59 Intake Total 1280 ml 655 ml Output Total 445 ml Balance 835 ml 655 ml Intake Free Water 120 ml IV Total 920 ml 55 ml Tube Feeding 360 ml 480 ml Output Urine Total 445 ml # Bowel Movements 103 Laboratory Tests 03/16/18 04:00: White Blood Count 14.5H, Red Blood Count 2.73L, Hemoglobin 7.5L, Hematocrit 23.0L, Mean Corpuscular Volume 84, Mean Corpuscular Hemoglobin 27.6, Mean Corpuscular Hemoglobin Concent 32.7, Red Cell Distribution Width 13.5, Platelet Count 202, Mean Platelet Volume 9.4, Neutrophils (%) (Auto) , Lymphocytes (%) ( Auto) , Monocytes (%) (Auto) , Eosinophils (%) (Auto) , Basophils (%) (Auto) , Neutrophils % (Manual) [Pending], Lymphocytes % (Manual) [Pending], Platelet Estimate [Pending], Platelet Morphology [Pending], Sodium Level 142, Potassium Level 4.4, Chloride Level 112H, Carbon Dioxide Level 22, Anion Gap 8, Blood Urea Nitrogen 42H, Creatinine 1.8H, Estimat Glomerular Filtration Rate , Glucose Level 197H, Uric Acid 5.9, Calcium Level 8.2L, Phosphorus Level 3.4, Magnesium Level 1.7L, Iron Level 31L, Total Iron Binding Capacity 83L, Percent Iron Saturation 37, Unsaturated Iron Binding 52L, Ferritin 310, Total Bilirubin 0.3, Aspartate Amino Transf (AST/SGOT) 68H, Alanine Aminotransferase (ALT/SGPT) 52, Alkaline Phosphatase 158H, C-Reactive Protein, Quantitative 3.7H, Pro-B- Type Natriuretic Peptide 5215H, Total Protein 5.0L, Albumin 1.7L, Globulin 3.3, Albumin/Globulin Ratio 0.5L, Vitamin B12 Level 1769H, Folate 17.9 Height (Feet): 5 Height (Inches): 10.00 Weight (Pounds): 168 General Appearance: no apparent distress EENT: PERRL/EOMI Neck: normal alignment Cardiovascular: regular rhythm Respiratory/Chest: normal breath sounds Abdomen: normal bowel sounds Extremities: non-tender Edema: 1+ Leg (L), 1+ Leg (R) Edema: mild edema 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 MD Mar 16, 2018 09:13
[2018-03-16] MEDS: Meropenem 500 MG in NS 55 ML IVPB SCH ×2 (09:21→21:25)
[2018-03-16] MEDS: Micafungin 100 MG in NS 110 ML IVPB SCH (09:59)
--- NOTE | 2018-03-16 11:13 | Infectious Diseases Prog Note ---
Assessment/Plan Assessment/Plan A; Septic shock, off pressor Candidal sepsis UTI with MRSA & Citrobacter Acute respiratory failure resolved Acute renal failure improving Chronic kidney disease Elevated transaminase Dementia Anemia P; Continue Meropenem, Micafungin , Vancomycin with F/U cultures repeat blood culture is negative Subjective ROS Limited/Unobtainable: Yes Constitutional: Reports: other - doing better transferred out of ICU Allergies: Coded Allergies: PENICILLINS (Unverified Allergy, Mild, 12/04/12) Objective Vital Signs Last 24 Hour Vital Signs Date Time Temp Pulse Resp B/P (MAP) Pulse Ox O2 Delivery O2 Flow Rate FiO2 03/16/18 08:20 101 159/72 03/16/18 08:00 98.8 101 20 159/72 (101) 98 03/16/18 08:00 96 03/16/18 04:00 88 03/16/18 04:00 97.9 91 20 140/62 (88) 95 03/16/18 00:00 97.7 103 20 145/73 (97) 99 03/16/18 00:00 95 03/15/18 21:37 Nasal Cannula 2.0 28 03/15/18 21:36 100 Nasal Cannula 2.0 28 03/15/18 21:00 Nasal Cannula 2.0 03/15/18 20:00 98.9 95 20 155/70 (98) 100 03/15/18 20:00 99 03/15/18 18:18 96 160/78 03/15/18 17:29 93 03/15/18 17:00 99.1 96 20 160/78 (105) 100 03/15/18 16:00 99.9 100 21 162/56 (91) 100 03/15/18 16:00 Nasal Cannula 2.0 03/15/18 15:00 97 26 158/78 (104) 100 03/15/18 14:00 97 25 168/54 (92) 98 03/15/18 13:30 152/82 03/15/18 13:00 92 23 152/82 (105) 100 03/15/18 12:00 99.6 99 22 161/59 (93) 100 03/15/18 12:00 100 03/15/18 12:00 Nasal Cannula 2.0 Height (Feet): 5 Height (Inches): 10.00 Weight (Pounds): 168 General Appearance: no acute distress HEENT: mucous membranes moist Respiratory/Chest: lungs clear Cardiovascular: tachycardia, other - left arm PICC line Abdomen: soft, non tender, other - GT feeding Neurologic/Psychiatric: aphasia Microbiology Date/Time Source Procedure Growth Status 03/14/18 14:00 Blood Blood Culture - Preliminary NO GROWTH AFTER 24 HOURS Resulted 03/13/18 19:48 Femoral Central Catheter Tip Culture - Preliminary Gram Positive Cocci Resulted Laboratory Tests Test 03/16/18 04:00 White Blood Count 14.5 K/UL (4.8-10.8) H Red Blood Count 2.73 M/UL (4.20-5.40) L Hemoglobin 7.5 G/DL (12.0-16.0) L Hematocrit 23.0 % (37.0-47.0) L Mean Corpuscular Volume 84 FL (80-99) Mean Corpuscular Hemoglobin 27.6 PG (27.0-31.0) Mean Corpuscular Hemoglobin Concent 32.7 G/DL (32.0-36.0) Red Cell Distribution Width 13.5 % (11.6-14.8) Platelet Count 202 K/UL (150-450) Mean Platelet Volume 9.4 FL (6.5-10.1) Neutrophils (%) (Auto) % (45.0-75.0) Lymphocytes (%) (Auto) % (20.0-45.0) Monocytes (%) (Auto) % (1.0-10.0) Eosinophils (%) (Auto) % (0.0-3.0) Basophils (%) (Auto) % (0.0-2.0) Differential Total Cells Counted 100 Neutrophils % (Manual) 80 % (45-75) H Lymphocytes % (Manual) 17 % (20-45) L Monocytes % (Manual) 3 % (1-10) Eosinophils % (Manual) 0 % (0-3) Basophils % (Manual) 0 % (0-2) Band Neutrophils 0 % (0-8) Platelet Estimate Adequate Platelet Morphology Normal Hypochromasia 1+ Sodium Level 142 MMOL/L (136-145) Potassium Level 4.4 MMOL/L (3.5-5.1) Chloride Level 112 MMOL/L (98-107) H Carbon Dioxide Level 22 MMOL/L (21-32) Anion Gap 8 mmol/L (5-15) Blood Urea Nitrogen 42 mg/dL (7-18) H Creatinine 1.8 MG/DL (0.55-1.30) H Estimat Glomerular Filtration Rate mL/min (>60) Glucose Level 197 MG/DL (74-106) H Uric Acid 5.9 MG/DL (2.6-7.2) Calcium Level 8.2 MG/DL (8.5-10.1) L Phosphorus Level 3.4 MG/DL (2.5-4.9) Magnesium Level 1.7 MG/DL (1.8-2.4) L Iron Level 31 ug/dL (50-175) L Total Iron Binding Capacity 83 ug/dL (250-450) L Percent Iron Saturation 37 % (15-50) Unsaturated Iron Binding 52 ug/dL (112-346) L Ferritin 310 NG/ML (8-388) Total Bilirubin 0.3 MG/DL (0.2-1.0) Aspartate Amino Transf (AST/SGOT) 68 U/L (15-37) H Alanine Aminotransferase (ALT/SGPT) 52 U/L (12-78) Alkaline Phosphatase 158 U/L (46-116) H C-Reactive Protein, Quantitative 3.7 mg/dL (0.00-0.90) H Pro-B-Type Natriuretic Peptide 5215 pg/mL (0-125) H Total Protein 5.0 G/DL (6.4-8.2) L Albumin 1.7 G/DL (3.4-5.0) L Globulin 3.3 g/dL Albumin/Globulin Ratio 0.5 (1.0-2.7) L Vitamin B12 Level 1769 PG/ML (193-986) H Folate 17.9 NG/ML (8.6-58.9) Current Medications Medications (Trade) Dose Ordered Sig/Gelacio Route PRN Reason Start Time Stop Time Status Last Admin Dose Admin Acetaminophen (Tylenol) 650 mg Q6H PRN GT FEVER 03/15/18 17:30 04/07/18 17:29 Albuterol/ Ipratropium (Albuterol/ Ipratropium) 3 ml Q4H PRN HHN Shortness of Breath 03/15/18 17:30 03/18/18 17:29 Amlodipine Besylate (Norvasc) 5 mg BID GT 03/15/18 18:00 04/12/18 08:59 03/16/18 08:20 Aspirin (ASA) 81 mg DAILY NG 03/16/18 09:00 04/08/18 08:59 03/16/18 08:20 Chlorhexidine Gluconate (Xiomara-Hex 2%) 1 applic DAILY@2000 TOPIC 03/15/18 20:00 04/08/18 22:29 03/15/18 21:03 Dextrose (Dextrose 50%) 25 ml Q30M PRN IV Hypoglycemia 03/15/18 17:45 04/07/18 15:14 Dextrose (Dextrose 50%) 50 ml Q30M PRN IV Hypoglycemia 03/15/18 17:45 04/07/18 15:14 Dextrose/ Electrolytes 1,000 ml @ 50 mls/hr Q20H IV 03/15/18 17:30 04/12/18 10:59 Heparin Sodium (Porcine) (Heparin 5000 units/ml) 5,000 units EVERY 12 HOURS SUBQ 03/15/18 21:00 04/07/18 20:59 03/16/18 08:21 Insulin Aspart (NovoLOG) Q6HR SUBQ 03/15/18 18:00 04/11/18 11:59 03/16/18 05:51 Lansoprazole (Prevacid) 30 mg Q12HR GT 03/16/18 21:00 04/15/18 20:59 Levetiracetam (Keppra) 750 mg Q12HR GT 03/15/18 21:00 04/07/18 20:59 03/16/18 08:19 Meropenem 500 mg/ Sodium Chloride 55 ml @ 110 mls/hr Q12H IVPB 03/15/18 22:00 03/18/18 09:59 03/16/18 09:21 Micafungin Sodium 100 mg/Sodium Chloride 110 ml @ 110 mls/hr Q24H IVPB 03/16/18 10:00 03/18/18 09:59 03/16/18 09:59 Nitroglycerin (Ntg) 1 patch Q24H TDERMAL 03/16/18 13:00 04/10/18 12:59 Ondansetron HCl (Zofran) 4 mg Q6H PRN IVP Nausea & Vomiting 03/15/18 17:30 04/07/18 17:29 Quetiapine Fumarate (SEROquel) 12.5 mg Q4H PRN ORAL agitation 03/15/18 17:30 04/08/18 17:29 Sodium Citrate (Bicitra) 30 ml EVERY 6 HOURS NG 03/15/18 18:00 04/10/18 12:44 03/16/18 05:48 Vancomycin HCl (Vanco rx to dose) 1 ea DAILY PRN MISC Per rx protocol 03/16/18 09:00 04/10/18 13:59 Vancomycin HCl/ Dextrose 250 ml @ 166.667 mls/hr Q48H IVPB 03/18/18 09:00 03/23/18 08:59 Wilder French MD Mar 16, 2018 11:13
--- NOTE | 2018-03-16 11:32 | General Surgery Progress Note ---
General Surgery-Progress Note Subjective Symptoms: improved Additional Comments down graded and doing well. improving. leukocytosis Objective Last 24 Hour Vital Signs Date Time Temp Pulse Resp B/P (MAP) Pulse Ox O2 Delivery O2 Flow Rate FiO2 03/16/18 10:15 Nasal Cannula 2.0 28 03/16/18 10:15 100 Nasal Cannula 2.0 28 03/16/18 08:20 101 159/72 03/16/18 08:00 98.8 101 20 159/72 (101) 98 03/16/18 08:00 96 03/16/18 04:00 88 03/16/18 04:00 97.9 91 20 140/62 (88) 95 03/16/18 00:00 97.7 103 20 145/73 (97) 99 03/16/18 00:00 95 03/15/18 21:37 Nasal Cannula 2.0 28 03/15/18 21:36 100 Nasal Cannula 2.0 28 03/15/18 21:00 Nasal Cannula 2.0 03/15/18 20:00 98.9 95 20 155/70 (98) 100 03/15/18 20:00 99 03/15/18 18:18 96 160/78 03/15/18 17:29 93 03/15/18 17:00 99.1 96 20 160/78 (105) 100 03/15/18 16:00 99.9 100 21 162/56 (91) 100 03/15/18 16:00 Nasal Cannula 2.0 03/15/18 15:00 97 26 158/78 (104) 100 03/15/18 14:00 97 25 168/54 (92) 98 03/15/18 13:30 152/82 03/15/18 13:00 92 23 152/82 (105) 100 03/15/18 12:00 99.6 99 22 161/59 (93) 100 03/15/18 12:00 100 03/15/18 12:00 Nasal Cannula 2.0 I&O Intake and Output 03/15/18 03/16/18 19:00 07:00 Intake Total 1220 ml 585 ml Output Total 395 ml Balance 825 ml 585 ml Intake Free Water 30 ml 90 ml IV Total 820 ml 55 ml Tube Feeding 370 ml 440 ml Output Urine Total 395 ml # Bowel Movements 103 Dressing: other Wound: other Drains: other Cardiovascular: RSR Respiratory: decreased breath sounds Abdomen: soft, flat, present bowel sounds Extremities: no cyanosis Laboratory Tests Test 03/16/18 04:00 White Blood Count 14.5 K/UL (4.8-10.8) H Red Blood Count 2.73 M/UL (4.20-5.40) L Hemoglobin 7.5 G/DL (12.0-16.0) L Hematocrit 23.0 % (37.0-47.0) L Mean Corpuscular Volume 84 FL (80-99) Mean Corpuscular Hemoglobin 27.6 PG (27.0-31.0) Mean Corpuscular Hemoglobin Concent 32.7 G/DL (32.0-36.0) Red Cell Distribution Width 13.5 % (11.6-14.8) Platelet Count 202 K/UL (150-450) Mean Platelet Volume 9.4 FL (6.5-10.1) Neutrophils (%) (Auto) % (45.0-75.0) Lymphocytes (%) (Auto) % (20.0-45.0) Monocytes (%) (Auto) % (1.0-10.0) Eosinophils (%) (Auto) % (0.0-3.0) Basophils (%) (Auto) % (0.0-2.0) Differential Total Cells Counted 100 Neutrophils % (Manual) 80 % (45-75) H Lymphocytes % (Manual) 17 % (20-45) L Monocytes % (Manual) 3 % (1-10) Eosinophils % (Manual) 0 % (0-3) Basophils % (Manual) 0 % (0-2) Band Neutrophils 0 % (0-8) Platelet Estimate Adequate Platelet Morphology Normal Hypochromasia 1+ Sodium Level 142 MMOL/L (136-145) Potassium Level 4.4 MMOL/L (3.5-5.1) Chloride Level 112 MMOL/L (98-107) H Carbon Dioxide Level 22 MMOL/L (21-32) Anion Gap 8 mmol/L (5-15) Blood Urea Nitrogen 42 mg/dL (7-18) H Creatinine 1.8 MG/DL (0.55-1.30) H Estimat Glomerular Filtration Rate mL/min (>60) Glucose Level 197 MG/DL (74-106) H Uric Acid 5.9 MG/DL (2.6-7.2) Calcium Level 8.2 MG/DL (8.5-10.1) L Phosphorus Level 3.4 MG/DL (2.5-4.9) Magnesium Level 1.7 MG/DL (1.8-2.4) L Iron Level 31 ug/dL (50-175) L Total Iron Binding Capacity 83 ug/dL (250-450) L Percent Iron Saturation 37 % (15-50) Unsaturated Iron Binding 52 ug/dL (112-346) L Ferritin 310 NG/ML (8-388) Total Bilirubin 0.3 MG/DL (0.2-1.0) Aspartate Amino Transf (AST/SGOT) 68 U/L (15-37) H Alanine Aminotransferase (ALT/SGPT) 52 U/L (12-78) Alkaline Phosphatase 158 U/L (46-116) H C-Reactive Protein, Quantitative 3.7 mg/dL (0.00-0.90) H Pro-B-Type Natriuretic Peptide 5215 pg/mL (0-125) H Total Protein 5.0 G/DL (6.4-8.2) L Albumin 1.7 G/DL (3.4-5.0) L Globulin 3.3 g/dL Albumin/Globulin Ratio 0.5 (1.0-2.7) L Vitamin B12 Level 1769 PG/ML (193-986) H Folate 17.9 NG/ML (8.6-58.9) Plan Problems: (1) Abnormal LFTs Assessment & Plan: likely shock liver from overt sepsis. labs improving abdominal ultrasound reviewed recovering / resolved (2) Decubitus ulcer of sacral region, unstageable Assessment & Plan: full thickness pressure injury (L)4cm x(W)3.4cm with approx 80% yellow slough ,otherwise pink ,(+) maceration.Hyperpigmentation periwound bordered by darker skin tone. DTPI noted to L heel oozing small amt serosanguineous exudate (L)6cm x (W)9cm.Wound bed fluctuant.DTPI noted to medial R heel (L)2cm x (W)2.5cm dry area noted along border but wound is fluctuant centrally. present upon admission. will be cared for during hospital stay will plan for debridement once stable unlikely etiology of leukocytosis wound improving since admission Tx.Plan: Cleanse sacral wound with Saline.Apply Therahoney gel .Apply Cavilon to borders .Cover with Optifoam drsg Daily and prn. Apply Cavilon wipe to R and L heels. Cover with Biatain drsg.Change prn. Reposition at least every 2hours or as tolerated. Off-load heels with pillow. (3) Severe sepsis Assessment & Plan: improving leukocytosis labs noted cont current plan Jean Marie Park Mar 16, 2018 11:31
[2018-03-16] MEDS: D5W w/KCl 20mEq 1,000 ML IV SCH (12:59)
[2018-03-16] MEDS: Nitroglycerin Patch 0.4mg TDERMAL SCH (12:59)
--- NOTE | 2018-03-16 13:07 | Nephrology Progress Note ---
Assessment/Plan Problem List: (1) MARK (acute kidney injury) (2) CKD (chronic kidney disease) (3) Sepsis (4) Respiratory failure (5) Shock (6) Anemia Assessment acute on chronic renal failure: Oliguric ATN resolving Hypotension? due to sepsis: Shock Acute respiratory failure PEG DM Shock liver Sever HypoAlbuminemia Plan now extubated 2D echo Ej Fx 55 % being transfused now 03/16 monitor Vanco levels Albumin bolus as needed up dose Norvasc stool C dif change IV fluids- Bicitra GT pulm toilet urine studies avoid Nephrotoxics Monitor renal parameters Transfuse I unit PADMA: Cholelithiasis. 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, consistent with angiomyolipoma no [place] Subjective ROS Limited/Unobtainable: No Constitutional: Reports: malaise Objective Objective Last 24 Hour Vital Signs Date Time Temp Pulse Resp B/P (MAP) Pulse Ox O2 Delivery O2 Flow Rate FiO2 03/16/18 12:59 137/70 03/16/18 11:45 98.1 97 20 157/70 (99) 99 03/16/18 11:30 98.2 100 20 161/73 (102) 98 03/16/18 10:15 Nasal Cannula 2.0 28 03/16/18 10:15 100 Nasal Cannula 2.0 28 03/16/18 08:20 101 159/72 03/16/18 08:00 98.8 101 20 159/72 (101) 98 03/16/18 08:00 96 03/16/18 04:00 88 03/16/18 04:00 97.9 91 20 140/62 (88) 95 03/16/18 00:00 97.7 103 20 145/73 (97) 99 03/16/18 00:00 95 03/15/18 21:37 Nasal Cannula 2.0 28 03/15/18 21:36 100 Nasal Cannula 2.0 28 03/15/18 21:00 Nasal Cannula 2.0 03/15/18 20:00 98.9 95 20 155/70 (98) 100 03/15/18 20:00 99 03/15/18 18:18 96 160/78 03/15/18 17:29 93 03/15/18 17:00 99.1 96 20 160/78 (105) 100 03/15/18 16:00 99.9 100 21 162/56 (91) 100 03/15/18 16:00 Nasal Cannula 2.0 03/15/18 15:00 97 26 158/78 (104) 100 03/15/18 14:00 97 25 168/54 (92) 98 03/15/18 13:30 152/82 Intake and Output 03/15/18 03/16/18 19:00 07:00 Intake Total 1220 ml 585 ml Output Total 395 ml Balance 825 ml 585 ml Intake Free Water 30 ml 90 ml IV Total 820 ml 55 ml Tube Feeding 370 ml 440 ml Output Urine Total 395 ml # Bowel Movements 103 Laboratory Tests 03/16/18 04:00: White Blood Count 14.5H, Red Blood Count 2.73L, Hemoglobin 7.5L, Hematocrit 23.0L, Mean Corpuscular Volume 84, Mean Corpuscular Hemoglobin 27.6, Mean Corpuscular Hemoglobin Concent 32.7, Red Cell Distribution Width 13.5, Platelet Count 202, Mean Platelet Volume 9.4, Neutrophils (%) (Auto) , Lymphocytes (%) ( Auto) , Monocytes (%) (Auto) , Eosinophils (%) (Auto) , Basophils (%) (Auto) , Differential Total Cells Counted 100, Neutrophils % (Manual) 80H, Lymphocytes % (Manual) 17L, Monocytes % (Manual) 3, Eosinophils % (Manual) 0, Basophils % ( Manual) 0, Band Neutrophils 0, Platelet Estimate Adequate, Platelet Morphology Normal, Hypochromasia 1+, Sodium Level 142, Potassium Level 4.4, Chloride Level 112H, Carbon Dioxide Level 22, Anion Gap 8, Blood Urea Nitrogen 42H, Creatinine 1.8H, Estimat Glomerular Filtration Rate , Glucose Level 197H, Uric Acid 5.9, Calcium Level 8.2L, Phosphorus Level 3.4, Magnesium Level 1.7L, Iron Level 31L, Total Iron Binding Capacity 83L, Percent Iron Saturation 37, Unsaturated Iron Binding 52L, Ferritin 310, Total Bilirubin 0.3, Aspartate Amino Transf (AST/SGOT ) 68H, Alanine Aminotransferase (ALT/SGPT) 52, Alkaline Phosphatase 158H, C- Reactive Protein, Quantitative 3.7H, Pro-B-Type Natriuretic Peptide 5215H, Total Protein 5.0L, Albumin 1.7L, Globulin 3.3, Albumin/Globulin Ratio 0.5L, Vitamin B12 Level 1769H, Folate 17.9 Height (Feet): 5 Height (Inches): 10.00 Weight (Pounds): 168 General Appearance: no apparent distress, lethargic Cardiovascular: tachycardia Respiratory/Chest: decreased breath sounds Abdomen: distended Objective no change Phil Ortiz MD Mar 16, 2018 13:07
--- NOTE | 2018-03-16 14:54 | Pulmonology Progress Note ---
Assessment/Plan Problems: (1) Severe sepsis (2) UTI (urinary tract infection) (3) Respiratory failure (4) Metabolic acidosis (5) Decubitus ulcer of sacral region, unstageable (6) Abnormal LFTs (7) Sepsis (8) Seizure disorder (9) CKD (chronic kidney disease) (10) Encephalopathy due to metabolic factor or toxin (11) Shock Assessment/Plan ASSESSMENT: * SIRS/SEPSIS * Shock, likely septic * VDRF, extubated 03/13 * MSOF * MARK on CKD * Abnormal LFT's - IMPROVED * NSTEMI, likely demand ischemia * Mild PVC on CXR & elevated BNP but clinically appears dry * ? ADHF * Sz DO * NHR * Bedbound @ baseline * Anemia * S/P GT PLAN: * Optimize pulmonary hygiene/mobilize as tolerated * Titrate down FiO2 to keep SaO2 > 92% * PRN HHN's * Monitor volumes and renal function * GT BICITRA per renal * F/U renal recs, replete electrolytes and free water * F/U cards recs * Vanco, Elías, Linda per ID, monitor WCt * GTF's * Continue HEP SQ * Continue AED's * FC Subjective Allergies: Coded Allergies: PENICILLINS (Unverified Allergy, Mild, 12/04/12) Subjective TTF, AFVSS, off O2 Cath tip with GPC No distress, chet TF's Objective Last 24 Hour Vital Signs Date Time Temp Pulse Resp B/P (MAP) Pulse Ox O2 Delivery O2 Flow Rate FiO2 03/16/18 12:59 137/70 03/16/18 12:00 98 03/16/18 11:45 98.1 97 20 157/70 (99) 99 03/16/18 11:30 98.2 100 20 161/73 (102) 98 03/16/18 10:15 Nasal Cannula 2.0 28 03/16/18 10:15 100 Nasal Cannula 2.0 28 03/16/18 09:00 Room Air 03/16/18 08:20 101 159/72 03/16/18 08:00 98.8 101 20 159/72 (101) 98 03/16/18 08:00 96 03/16/18 04:00 88 03/16/18 04:00 97.9 91 20 140/62 (88) 95 03/16/18 00:00 97.7 103 20 145/73 (97) 99 03/16/18 00:00 95 03/15/18 21:37 Nasal Cannula 2.0 28 03/15/18 21:36 100 Nasal Cannula 2.0 28 03/15/18 21:00 Nasal Cannula 2.0 03/15/18 20:00 98.9 95 20 155/70 (98) 100 03/15/18 20:00 99 03/15/18 18:18 96 160/78 03/15/18 17:29 93 03/15/18 17:00 99.1 96 20 160/78 (105) 100 03/15/18 16:00 99.9 100 21 162/56 (91) 100 03/15/18 16:00 Nasal Cannula 2.0 03/15/18 15:00 97 26 158/78 (104) 100 Intake and Output 03/15/18 03/16/18 19:00 07:00 Intake Total 1220 ml 585 ml Output Total 395 ml Balance 825 ml 585 ml Intake Free Water 30 ml 90 ml IV Total 820 ml 55 ml Tube Feeding 370 ml 440 ml Output Urine Total 395 ml # Bowel Movements 103 General Appearance: no acute distress, cachetic HEENT: normocephalic, atraumatic, anicteric, mucous membranes moist Respiratory/Chest: chest wall non-tender, lungs clear, normal breath sounds, no respiratory distress, no accessory muscle use Cardiovascular: normal peripheral pulses, normal rate, regular rhythm Abdomen: normal bowel sounds, soft, non tender, no organomegaly, non distended , no mass, other - GT Extremities: no cyanosis, no clubbing, no edema Microbiology Date/Time Source Procedure Growth Status 03/14/18 14:00 Blood Blood Culture - Preliminary NO GROWTH AFTER 24 HOURS Resulted 03/13/18 19:48 Femoral Central Catheter Tip Culture - Preliminary Gram Positive Cocci Resulted Laboratory Tests 03/16/18 04:00: White Blood Count 14.5H, Red Blood Count 2.73L, Hemoglobin 7.5L, Hematocrit 23.0L, Mean Corpuscular Volume 84, Mean Corpuscular Hemoglobin 27.6, Mean Corpuscular Hemoglobin Concent 32.7, Red Cell Distribution Width 13.5, Platelet Count 202, Mean Platelet Volume 9.4, Neutrophils (%) (Auto) , Lymphocytes (%) ( Auto) , Monocytes (%) (Auto) , Eosinophils (%) (Auto) , Basophils (%) (Auto) , Differential Total Cells Counted 100, Neutrophils % (Manual) 80H, Lymphocytes % (Manual) 17L, Monocytes % (Manual) 3, Eosinophils % (Manual) 0, Basophils % ( Manual) 0, Band Neutrophils 0, Platelet Estimate Adequate, Platelet Morphology Normal, Hypochromasia 1+, Sodium Level 142, Potassium Level 4.4, Chloride Level 112H, Carbon Dioxide Level 22, Anion Gap 8, Blood Urea Nitrogen 42H, Creatinine 1.8H, Estimat Glomerular Filtration Rate , Glucose Level 197H, Uric Acid 5.9, Calcium Level 8.2L, Phosphorus Level 3.4, Magnesium Level 1.7L, Iron Level 31L, Total Iron Binding Capacity 83L, Percent Iron Saturation 37, Unsaturated Iron Binding 52L, Ferritin 310, Total Bilirubin 0.3, Aspartate Amino Transf (AST/SGOT ) 68H, Alanine Aminotransferase (ALT/SGPT) 52, Alkaline Phosphatase 158H, C- Reactive Protein, Quantitative 3.7H, Pro-B-Type Natriuretic Peptide 5215H, Total Protein 5.0L, Albumin 1.7L, Globulin 3.3, Albumin/Globulin Ratio 0.5L, Vitamin B12 Level 1769H, Folate 17.9 Current Medications Medications (Trade) Dose Ordered Sig/Gelacio Route PRN Reason Start Time Stop Time Status Last Admin Dose Admin Acetaminophen (Tylenol) 650 mg Q6H PRN GT FEVER 03/15/18 17:30 04/07/18 17:29 Albuterol/ Ipratropium (Albuterol/ Ipratropium) 3 ml Q4H PRN HHN Shortness of Breath 03/15/18 17:30 03/18/18 17:29 Amlodipine Besylate (Norvasc) 5 mg BID GT 03/15/18 18:00 04/12/18 08:59 03/16/18 08:20 Aspirin (ASA) 81 mg DAILY NG 03/16/18 09:00 04/08/18 08:59 03/16/18 08:20 Chlorhexidine Gluconate (Xiomara-Hex 2%) 1 applic DAILY@1999 TOPIC 03/15/18 20:00 04/08/18 22:29 03/15/18 21:03 Dextrose (Dextrose 50%) 25 ml Q30M PRN IV Hypoglycemia 03/15/18 17:45 04/07/18 15:14 Dextrose (Dextrose 50%) 50 ml Q30M PRN IV Hypoglycemia 03/15/18 17:45 04/07/18 15:14 Dextrose/ Electrolytes 1,000 ml @ 50 mls/hr Q20H IV 03/15/18 17:30 04/12/18 10:59 03/16/18 12:59 Heparin Sodium (Porcine) (Heparin 5000 units/ml) 5,000 units EVERY 12 HOURS SUBQ 03/15/18 21:00 04/07/18 20:59 03/16/18 08:21 Insulin Aspart (NovoLOG) Q6HR SUBQ 03/15/18 18:00 04/11/18 11:59 03/16/18 11:08 Lansoprazole (Prevacid) 30 mg Q12HR GT 03/16/18 21:00 04/15/18 20:59 Levetiracetam (Keppra) 750 mg Q12HR GT 03/15/18 21:00 04/07/18 20:59 03/16/18 08:19 Meropenem 500 mg/ Sodium Chloride 55 ml @ 110 mls/hr Q12H IVPB 03/15/18 22:00 03/18/18 09:59 03/16/18 09:21 Micafungin Sodium 100 mg/Sodium Chloride 110 ml @ 110 mls/hr Q24H IVPB 03/16/18 10:00 03/18/18 09:59 03/16/18 09:59 Nitroglycerin (Ntg) 1 patch Q24H TDERMAL 03/16/18 13:00 04/10/18 12:59 03/16/18 12:59 Ondansetron HCl (Zofran) 4 mg Q6H PRN IVP Nausea & Vomiting 03/15/18 17:30 04/07/18 17:29 Quetiapine Fumarate (SEROquel) 12.5 mg Q4H PRN ORAL agitation 03/15/18 17:30 04/08/18 17:29 Sodium Citrate (Bicitra) 30 ml EVERY 6 HOURS NG 03/15/18 18:00 04/10/18 12:44 03/16/18 11:07 Vancomycin HCl (Vanco rx to dose) 1 ea DAILY PRN MISC Per rx protocol 03/16/18 09:00 04/10/18 13:59 Vancomycin HCl/ Dextrose 250 ml @ 166.667 mls/hr Q48H IVPB 03/18/18 09:00 03/23/18 08:59 Javon Gan MD Mar 16, 2018 14:54
--- NOTE | 2018-03-16 19:38 | General Progress Note ---
Assessment/Plan Problem List: (1) CKD (chronic kidney disease) ICD Codes: N18.9 - Chronic kidney disease, unspecified SNOMED: 769810571 (2) MARK (acute kidney injury) ICD Codes: N17.9 - Acute kidney failure, unspecified SNOMED: 10598031 (3) Sepsis ICD Codes: A41.9 - Sepsis, unspecified organism SNOMED: 77392266 (4) Abnormal LFTs ICD Codes: R94.5 - Abnormal results of liver function studies SNOMED: 056746501 (5) Decubitus ulcer of sacral region, unstageable ICD Codes: L89.150 - Pressure ulcer of sacral region, unstageable SNOMED: 338064368, 389290877 (6) Hyperglycemia ICD Codes: R73.9 - Hyperglycemia, unspecified; N18.9 - Chronic kidney disease, unspecified SNOMED: 75343535 (7) Metabolic acidosis ICD Codes: E87.2 - Acidosis; N18.9 - Chronic kidney disease, unspecified SNOMED: 70789030 (8) Renal failure (ARF), acute on chronic ICD Codes: N17.9 - Acute kidney failure, unspecified; N18.9 - Chronic kidney disease, unspecified SNOMED: 090888261 Qualifiers: Qualified Codes: N17.9 - Acute kidney failure, unspecified; N18.4 - Chronic kidney disease, stage 4 (severe) (9) Anemia ICD Codes: D64.9 - Anemia, unspecified SNOMED: 389497233 Qualifiers: Qualified Codes: D64.9 - Anemia, unspecified (10) Respiratory failure ICD Codes: J96.90 - Respiratory failure, unspecified, unspecified whether with hypoxia or hypercapnia SNOMED: 698150540 Qualifiers: Qualified Codes: J96.00 - Acute respiratory failure, unspecified whether with hypoxia or hypercapnia (11) UTI (urinary tract infection) ICD Codes: N39.0 - Urinary tract infection, site not specified SNOMED: 54780384 Qualifiers: Qualified Codes: T83.511A - Infection and inflammatory reaction due to indwelling urethral catheter, initial encounter; N39.0 - Urinary tract infection , site not specified (12) NSTEMI (non-ST elevated myocardial infarction) ICD Codes: I21.4 - Non-ST elevation (NSTEMI) myocardial infarction SNOMED: 556344815 (13) Severe sepsis ICD Codes: A41.9 - Sepsis, unspecified organism; R65.20 - Severe sepsis without septic shock SNOMED: 76658525 (14) Encephalopathy due to metabolic factor or toxin SNOMED: 314684017 Status: progressing Assessment/Plan resp failure cpt sepsis .abx per id pna azotemia hypokalemia lethargy is improved ARF improved Subjective ROS Limited/Unobtainable: Yes Allergies: Coded Allergies: PENICILLINS (Unverified Allergy, Mild, 12/04/12) Objective Last 24 Hour Vital Signs Date Time Temp Pulse Resp B/P (MAP) Pulse Ox O2 Delivery O2 Flow Rate FiO2 03/16/18 18:27 92 169/92 03/16/18 16:00 98.2 95 20 147/63 (91) 99 03/16/18 16:00 92 03/16/18 12:59 137/70 03/16/18 12:00 98 03/16/18 11:45 98.1 97 20 157/70 (99) 99 03/16/18 11:30 98.2 100 20 161/73 (102) 98 03/16/18 10:15 Nasal Cannula 2.0 28 03/16/18 10:15 100 Nasal Cannula 2.0 28 03/16/18 09:00 Room Air 03/16/18 08:20 101 159/72 03/16/18 08:00 98.8 101 20 159/72 (101) 98 03/16/18 08:00 96 03/16/18 04:00 88 03/16/18 04:00 97.9 91 20 140/62 (88) 95 03/16/18 00:00 97.7 103 20 145/73 (97) 99 03/16/18 00:00 95 03/15/18 21:37 Nasal Cannula 2.0 28 03/15/18 21:36 100 Nasal Cannula 2.0 28 03/15/18 21:00 Nasal Cannula 2.0 03/15/18 20:00 98.9 95 20 155/70 (98) 100 03/15/18 20:00 99 Intake and Output 03/15/18 03/16/18 19:00 07:00 Intake Total 1220 ml 585 ml Output Total 395 ml Balance 825 ml 585 ml Intake Free Water 30 ml 90 ml IV Total 820 ml 55 ml Tube Feeding 370 ml 440 ml Output Urine Total 395 ml # Bowel Movements 103 Laboratory Tests 03/16/18 04:00: White Blood Count 14.5H, Red Blood Count 2.73L, Hemoglobin 7.5L, Hematocrit 23.0L, Mean Corpuscular Volume 84, Mean Corpuscular Hemoglobin 27.6, Mean Corpuscular Hemoglobin Concent 32.7, Red Cell Distribution Width 13.5, Platelet Count 202, Mean Platelet Volume 9.4, Neutrophils (%) (Auto) , Lymphocytes (%) ( Auto) , Monocytes (%) (Auto) , Eosinophils (%) (Auto) , Basophils (%) (Auto) , Differential Total Cells Counted 100, Neutrophils % (Manual) 80H, Lymphocytes % (Manual) 17L, Monocytes % (Manual) 3, Eosinophils % (Manual) 0, Basophils % ( Manual) 0, Band Neutrophils 0, Platelet Estimate Adequate, Platelet Morphology Normal, Hypochromasia 1+, Sodium Level 142, Potassium Level 4.4, Chloride Level 112H, Carbon Dioxide Level 22, Anion Gap 8, Blood Urea Nitrogen 42H, Creatinine 1.8H, Estimat Glomerular Filtration Rate , Glucose Level 197H, Uric Acid 5.9, Calcium Level 8.2L, Phosphorus Level 3.4, Magnesium Level 1.7L, Iron Level 31L, Total Iron Binding Capacity 83L, Percent Iron Saturation 37, Unsaturated Iron Binding 52L, Ferritin 310, Total Bilirubin 0.3, Aspartate Amino Transf (AST/SGOT ) 68H, Alanine Aminotransferase (ALT/SGPT) 52, Alkaline Phosphatase 158H, C- Reactive Protein, Quantitative 3.7H, Pro-B-Type Natriuretic Peptide 5215H, Total Protein 5.0L, Albumin 1.7L, Globulin 3.3, Albumin/Globulin Ratio 0.5L, Vitamin B12 Level 1769H, Folate 17.9 Height (Feet): 5 Height (Inches): 10.00 Weight (Pounds): 168 Cardiovascular: normal rate Respiratory/Chest: lungs clear Abdomen: soft Krzysztof Schneider MD Mar 16, 2018 19:38
--- NOTE | 2018-03-16 20:42 | General Progress Note ---
Assessment/Plan Problem List: (1) Seizure disorder ICD Codes: G40.909 - Epilepsy, unspecified, not intractable, without status epilepticus SNOMED: 269511411 (2) Encephalopathy due to metabolic factor or toxin SNOMED: 772154297 Status: unchanged Assessment/Plan (1) Seizure disorder ICD Codes: G40.909 - Epilepsy, unspecified, not intractable, without status epilepticus SNOMED: 405114391 (2) Encephalopathy due to metabolic factor or toxin SNOMED: 874082761 Status: unchanged Assessment/Plan seroquel prn Subjective Date patient seen: Mar 16, 2018 Neurologic/Psychiatric: Reports: anxiety Allergies: Coded Allergies: PENICILLINS (Unverified Allergy, Mild, 12/04/12) All Systems: reviewed and negative except above Objective Last 24 Hour Vital Signs Date Time Temp Pulse Resp B/P (MAP) Pulse Ox O2 Delivery O2 Flow Rate FiO2 03/16/18 18:27 92 169/92 03/16/18 16:00 98.2 95 20 147/63 (91) 99 03/16/18 16:00 92 03/16/18 12:59 137/70 03/16/18 12:00 98 03/16/18 11:45 98.1 97 20 157/70 (99) 99 03/16/18 11:30 98.2 100 20 161/73 (102) 98 03/16/18 10:15 Nasal Cannula 2.0 28 03/16/18 10:15 100 Nasal Cannula 2.0 28 03/16/18 09:00 Room Air 03/16/18 08:20 101 159/72 03/16/18 08:00 98.8 101 20 159/72 (101) 98 03/16/18 08:00 96 03/16/18 04:00 88 03/16/18 04:00 97.9 91 20 140/62 (88) 95 03/16/18 00:00 97.7 103 20 145/73 (97) 99 03/16/18 00:00 95 03/15/18 21:37 Nasal Cannula 2.0 28 03/15/18 21:36 100 Nasal Cannula 2.0 28 03/15/18 21:00 Nasal Cannula 2.0 Intake and Output 03/15/18 03/16/18 19:00 07:00 Intake Total 1220 ml 585 ml Output Total 395 ml Balance 825 ml 585 ml Intake Free Water 30 ml 90 ml IV Total 820 ml 55 ml Tube Feeding 370 ml 440 ml Output Urine Total 395 ml # Bowel Movements 103 Laboratory Tests 03/16/18 04:00: White Blood Count 14.5H, Red Blood Count 2.73L, Hemoglobin 7.5L, Hematocrit 23.0L, Mean Corpuscular Volume 84, Mean Corpuscular Hemoglobin 27.6, Mean Corpuscular Hemoglobin Concent 32.7, Red Cell Distribution Width 13.5, Platelet Count 202, Mean Platelet Volume 9.4, Neutrophils (%) (Auto) , Lymphocytes (%) ( Auto) , Monocytes (%) (Auto) , Eosinophils (%) (Auto) , Basophils (%) (Auto) , Differential Total Cells Counted 100, Neutrophils % (Manual) 80H, Lymphocytes % (Manual) 17L, Monocytes % (Manual) 3, Eosinophils % (Manual) 0, Basophils % ( Manual) 0, Band Neutrophils 0, Platelet Estimate Adequate, Platelet Morphology Normal, Hypochromasia 1+, Sodium Level 142, Potassium Level 4.4, Chloride Level 112H, Carbon Dioxide Level 22, Anion Gap 8, Blood Urea Nitrogen 42H, Creatinine 1.8H, Estimat Glomerular Filtration Rate , Glucose Level 197H, Uric Acid 5.9, Calcium Level 8.2L, Phosphorus Level 3.4, Magnesium Level 1.7L, Iron Level 31L, Total Iron Binding Capacity 83L, Percent Iron Saturation 37, Unsaturated Iron Binding 52L, Ferritin 310, Total Bilirubin 0.3, Aspartate Amino Transf (AST/SGOT ) 68H, Alanine Aminotransferase (ALT/SGPT) 52, Alkaline Phosphatase 158H, C- Reactive Protein, Quantitative 3.7H, Pro-B-Type Natriuretic Peptide 5215H, Total Protein 5.0L, Albumin 1.7L, Globulin 3.3, Albumin/Globulin Ratio 0.5L, Vitamin B12 Level 1769H, Folate 17.9 Height (Feet): 5 Height (Inches): 10.00 Weight (Pounds): 168 General Appearance: no apparent distress, lethargic, confused, agitated China Kidd MD Mar 16, 2018 20:42
[2018-03-16] MEDS: Dyna-Hex 2% Top Sol 2oz TOPIC SCH (21:24)
--- NOTE | 2018-03-16 23:53 | Cardiology Progress Note ---
Assessment/Plan Assessment/Plan 1. Septic shock, resolved, 2D echocardiography with normal LV systolic function with normal intracardiac filling pressures. 2. Atrial fibrillation with rapid ventricular response, converted to SR, continue the current regimen. 3. History of hypertension, DC amlodipine, would like to switch to B-blockers. 4. History of diabetes mellitus. 5. NSTEMI type II, conservative management. Subjective Subjective Sinus rhythm at rate of 92. Objective Last 24 Hour Vital Signs Date Time Temp Pulse Resp B/P (MAP) Pulse Ox O2 Delivery O2 Flow Rate FiO2 03/16/18 21:00 Room Air 03/16/18 20:42 Nasal Cannula 2.0 28 03/16/18 20:41 100 Nasal Cannula 2.0 28 03/16/18 20:00 97.9 96 20 45/65 (58) 100 03/16/18 18:27 92 169/92 03/16/18 16:00 98.2 95 20 147/63 (91) 99 03/16/18 16:00 92 03/16/18 12:59 137/70 03/16/18 12:00 98 03/16/18 11:45 98.1 97 20 157/70 (99) 99 03/16/18 11:30 98.2 100 20 161/73 (102) 98 03/16/18 10:15 Nasal Cannula 2.0 28 03/16/18 10:15 100 Nasal Cannula 2.0 28 03/16/18 09:00 Room Air 03/16/18 08:20 101 159/72 03/16/18 08:00 98.8 101 20 159/72 (101) 98 03/16/18 08:00 96 03/16/18 04:00 88 03/16/18 04:00 97.9 91 20 140/62 (88) 95 03/16/18 00:00 97.7 103 20 145/73 (97) 99 03/16/18 00:00 95 Intake and Output 03/15/18 03/16/18 19:00 07:00 Intake Total 1220 ml 585 ml Output Total 395 ml Balance 825 ml 585 ml Intake Free Water 30 ml 90 ml IV Total 820 ml 55 ml Tube Feeding 370 ml 440 ml Output Urine Total 395 ml # Bowel Movements 103 2D Echo: LVEF 55%, Mild LVH, Grade I LVDD, RVSP 20 mmHg Laboratory Tests Test 03/16/18 04:00 White Blood Count 14.5 K/UL (4.8-10.8) H Red Blood Count 2.73 M/UL (4.20-5.40) L Hemoglobin 7.5 G/DL (12.0-16.0) L Hematocrit 23.0 % (37.0-47.0) L Mean Corpuscular Volume 84 FL (80-99) Mean Corpuscular Hemoglobin 27.6 PG (27.0-31.0) Mean Corpuscular Hemoglobin Concent 32.7 G/DL (32.0-36.0) Red Cell Distribution Width 13.5 % (11.6-14.8) Platelet Count 202 K/UL (150-450) Mean Platelet Volume 9.4 FL (6.5-10.1) Neutrophils (%) (Auto) % (45.0-75.0) Lymphocytes (%) (Auto) % (20.0-45.0) Monocytes (%) (Auto) % (1.0-10.0) Eosinophils (%) (Auto) % (0.0-3.0) Basophils (%) (Auto) % (0.0-2.0) Differential Total Cells Counted 100 Neutrophils % (Manual) 80 % (45-75) H Lymphocytes % (Manual) 17 % (20-45) L Monocytes % (Manual) 3 % (1-10) Eosinophils % (Manual) 0 % (0-3) Basophils % (Manual) 0 % (0-2) Band Neutrophils 0 % (0-8) Platelet Estimate Adequate Platelet Morphology Normal Hypochromasia 1+ Sodium Level 142 MMOL/L (136-145) Potassium Level 4.4 MMOL/L (3.5-5.1) Chloride Level 112 MMOL/L (98-107) H Carbon Dioxide Level 22 MMOL/L (21-32) Anion Gap 8 mmol/L (5-15) Blood Urea Nitrogen 42 mg/dL (7-18) H Creatinine 1.8 MG/DL (0.55-1.30) H Estimat Glomerular Filtration Rate mL/min (>60) Glucose Level 197 MG/DL (74-106) H Uric Acid 5.9 MG/DL (2.6-7.2) Calcium Level 8.2 MG/DL (8.5-10.1) L Phosphorus Level 3.4 MG/DL (2.5-4.9) Magnesium Level 1.7 MG/DL (1.8-2.4) L Iron Level 31 ug/dL (50-175) L Total Iron Binding Capacity 83 ug/dL (250-450) L Percent Iron Saturation 37 % (15-50) Unsaturated Iron Binding 52 ug/dL (112-346) L Ferritin 310 NG/ML (8-388) Total Bilirubin 0.3 MG/DL (0.2-1.0) Aspartate Amino Transf (AST/SGOT) 68 U/L (15-37) H Alanine Aminotransferase (ALT/SGPT) 52 U/L (12-78) Alkaline Phosphatase 158 U/L (46-116) H C-Reactive Protein, Quantitative 3.7 mg/dL (0.00-0.90) H Pro-B-Type Natriuretic Peptide 5215 pg/mL (0-125) H Total Protein 5.0 G/DL (6.4-8.2) L Albumin 1.7 G/DL (3.4-5.0) L Globulin 3.3 g/dL Albumin/Globulin Ratio 0.5 (1.0-2.7) L Vitamin B12 Level 1769 PG/ML (193-986) H Folate 17.9 NG/ML (8.6-58.9) Microbiology Date/Time Source Procedure Growth Status 03/14/18 14:00 Blood Blood Culture - Preliminary NO GROWTH AFTER 24 HOURS Resulted Objective HEENT: Atraumatic and normocephalic. Anicteric. Pupils are equal, round, and reactive to light and accommodation. Extraocular muscles intact. NECK: JVP less than 5 cm. No carotid bruits. Carotid upstrokes 2+ bilaterally. CARDIOVASCULAR SYSTEM: Normal S1, S2. Regular rhythm. No murmurs, gallops, or rubs. LUNGS: Diminished breath sounds in both bases. ABDOMEN: Soft, nontender, and nondistended. No hepatosplenomegaly. Positive G-tube in place. EXTREMITIES: No evidence of edema, clubbing, or cyanosis. Everett Tomas MD Mar 16, 2018 23:52
[2018-03-17] VITALS: BP 149/71
[2018-03-17] MEDS: Sodium Citrate 30ml NG SCH ×3 (00:18→11:11)
[2018-03-17] MEDS: NovoLOG Insulin Flexpen SUBQ SCH ×4 (00:20→18:21)
[2018-03-17 03:49] LABS: BASOPHILS % (AUTO) 0.6 % (0.0-2.0); EOSINOPHILS % (AUTO) 2.2 % (0.0-3.0); HEMATOCRIT 32.9 % (37.0-47.0); HEMOGLOBIN 10.8 G/DL (12.0-16.0); LYMPHOCYTES % (AUTO) 15.7 % (20.0-45.0); MEAN CORPUSCULAR VOLUME 84 FL (80-99); MONOCYTES % (AUTO) 7.4 % (1.0-10.0); NEUTROPHILS % (AUTO) 74.1 % (45.0-75.0); PLATELET COUNT 200 K/UL (150-450); RED CELL DISTRIBUTION WIDTH 13.2 % (11.6-14.8); WHITE BLOOD COUNT 13.5 K/UL (4.8-10.8)
[2018-03-17 04:00] VITALS: BP 143/66
[2018-03-17 04:24] LABS: ALANINE AMINOTRANSFERASE 52 U/L (12-78); ALBUMIN 1.8 G/DL (3.4-5.0); ALBUMIN/GLOBULIN RATIO 0.5 (1.0-2.7); ALKALINE PHOSPHATASE 171 U/L (46-116); ANION GAP 7 mmol/L (5-15); ASPARTATE AMINO TRANSFERASE 57 U/L (15-37); BILIRUBIN,TOTAL 0.3 MG/DL (0.2-1.0); BLOOD UREA NITROGEN 42 mg/dL (7-18); CALCIUM 8.4 MG/DL (8.5-10.1); CARBON DIOXIDE 25 MMOL/L (21-32); CHLORIDE 114 MMOL/L (98-107); CREATININE 1.8 MG/DL (0.55-1.30); PHOSPHORUS 3.3 MG/DL (2.5-4.9); POTASSIUM 4.2 MMOL/L (3.5-5.1); SODIUM 146 MMOL/L (136-145)
[2018-03-17 08:00] VITALS: BP 177/84
[2018-03-17] MEDS: Heparin 5000 units/ml inj SUBQ SCH ×2 (08:07→20:33)
[2018-03-17] MEDS: Aspirin Baby 81mg NG SCH (08:08)
[2018-03-17] MEDS: levETIRAcetam 500mg/5ml Liquid GT SCH ×2 (08:08→20:31)
--- NOTE | 2018-03-17 08:45 | General Progress Note ---
Assessment/Plan Assessment/Plan # Anemia of chronic disease -- baseline appears to be 11-12 reviewed labs from 2012 --> at this time decreased, anemia panel has been reviewed and acd --> transfuse as needed, hgb goal >7 --> no evidence of hemolysis noted --> Blood tx: 03/10 --> no evidence of anita bleeding --> monitor coagulopathy # Elevated PTT, coagulopathy --> recheck PTT, if still elevated, may be a factor deficiency --> check for factors that are in the extrinsic pathway ==> unlikely this will cause massive blood loss # Leukocytosis likely related to septic shock --> on abx and ivf --> appreciate ID recs and workup --> monitor for improvement # Thrombocytopenia likely related to infection, appears baseline 100-150k --> imaging has been reviewed --> medications have been reviewed --> hepatitis panel reviewed from before # Abnormal LFTs --> Currently has normalized. --> likely shock liver from overt sepsis --> trend labs # Decubitus ulcer of sacral region, unstageable, 5cm x 4cm unstagable sacral decubitus ulcer, no drainage, mild periedge edema/erythema, soft, no odor --> will be cared for during hospital stay --> appreciate surg recs # Severe sepsis --> on abx as per ID # Respiratory failure. extubated --> as per pulm Greatly appreciate consultation! Subjective Constitutional: Denies: no symptoms, chills, diaphoresis, fever, malaise, weakness, other HEENT: Denies: no symptoms, eye pain, blurred vision, tearing, double vision, ear pain, ear discharge, nose pain, nose congestion, throat pain, throat swelling, mouth pain, mouth swelling, other Respiratory: Denies: no symptoms, cough, orthopnea, shortness of breath, SOB with excertion, SOB at rest, sputum, stridor, wheezing, other Gastrointestinal/Abdominal: Denies: no symptoms, abdomen distended, abdominal pain, black stools, tarry stools, blood in stool, constipated, diarrhea, difficulty swallowing, nausea, poor appetite, poor fluid intake, rectal bleeding , vomiting, other Genitourinary: Denies: no symptoms, burning, discharge, frequency, flank pain, hematuria, incontinence, pain, urgency, other Neurologic/Psychiatric: Denies: no symptoms, anxiety, depressed, emotional problems, headache, numbness, paresthesia, pre-existing deficit, seizure, tingling, tremors, weakness, other Endocrine: Denies: no symptoms, excessive sweating, flushing, intolerance to cold, intolerance to heat, increased hunger, increased thirst, increased urine, unexplained weight gain, unexplained weight loss, other Hematologic/Lymphatic: Denies: no symptoms, anemia, easy bleeding, easy bruising, other Allergies: Coded Allergies: PENICILLINS (Unverified Allergy, Mild, 12/04/12) Subjective breathing improved. H/H stable. remains on abx. family in the room Objective Last 24 Hour Vital Signs Date Time Temp Pulse Resp B/P (MAP) Pulse Ox O2 Delivery O2 Flow Rate FiO2 03/17/18 08:00 99.2 99 20 177/84 (115) 98 03/17/18 04:00 97 03/17/18 04:00 98.0 94 20 143/66 (91) 100 03/17/18 00:00 98.1 96 18 149/71 (97) 100 03/17/18 00:00 93 03/16/18 21:00 Room Air 03/16/18 20:42 Nasal Cannula 2.0 28 03/16/18 20:41 100 Nasal Cannula 2.0 28 03/16/18 20:00 93 03/16/18 20:00 97.9 96 20 145/65 (91) 100 03/16/18 18:27 92 169/92 03/16/18 16:00 98.2 95 20 147/63 (91) 99 03/16/18 16:00 92 03/16/18 12:59 137/70 03/16/18 12:00 98 03/16/18 11:45 98.1 97 20 157/70 (99) 99 03/16/18 11:30 98.2 100 20 161/73 (102) 98 03/16/18 10:15 Nasal Cannula 2.0 28 03/16/18 10:15 100 Nasal Cannula 2.0 28 03/16/18 09:00 Room Air Intake and Output 03/16/18 03/17/18 18:59 06:59 Intake Total 1225 ml Output Total 800 ml 800 ml Balance -800 ml 425 ml Intake Free Water 90 ml IV Total 655 ml Tube Feeding 480 ml Output Urine Total 800 ml 650 ml Stool Total 150 ml Laboratory Tests 03/17/18 03:45: White Blood Count 13.5H, Red Blood Count 3.90L, Hemoglobin 10.8#L, Hematocrit 32.9#L, Mean Corpuscular Volume 84, Mean Corpuscular Hemoglobin 27.7, Mean Corpuscular Hemoglobin Concent 32.9, Red Cell Distribution Width 13.2, Platelet Count 200, Mean Platelet Volume 8.4, Neutrophils (%) (Auto) 74.1, Lymphocytes (% ) (Auto) 15.7L, Monocytes (%) (Auto) 7.4, Eosinophils (%) (Auto) 2.2, Basophils (%) (Auto) 0.6, Sodium Level 146H, Potassium Level 4.2, Chloride Level 114H, Carbon Dioxide Level 25, Anion Gap 7, Blood Urea Nitrogen 42H, Creatinine 1.8H, Estimat Glomerular Filtration Rate , Glucose Level 144H, Calcium Level 8.4L, Phosphorus Level 3.3, Magnesium Level 1.9, Total Bilirubin 0.3, Aspartate Amino Transf (AST/SGOT) 57H, Alanine Aminotransferase (ALT/SGPT) 52, Alkaline Phosphatase 171H, Total Protein 5.4L, Albumin 1.8L, Globulin 3.6, Albumin/ Globulin Ratio 0.5L, Random Vancomycin Level 20.8 Height (Feet): 5 Height (Inches): 10.00 Weight (Pounds): 166 General Appearance: alert EENT: TMs normal Neck: supple Cardiovascular: regular rhythm Respiratory/Chest: normal breath sounds Abdomen: non tender Extremities: non-tender Edema: mild edema Neurologic: no motor/sensory deficits Skin: normal pigmentation Objective trach, Aleksandr Malloy MD Mar 17, 2018 08:45
[2018-03-17] MEDS: D5W w/KCl 20mEq 1,000 ML IV SCH (08:51)
--- NOTE | 2018-03-17 09:23 | General Surgery Progress Note ---
General Surgery-Progress Note Subjective Additional Comments no acute events. improving. leukocytosis 13k today Objective Last 24 Hour Vital Signs Date Time Temp Pulse Resp B/P (MAP) Pulse Ox O2 Delivery O2 Flow Rate FiO2 03/17/18 09:00 Room Air 03/17/18 08:00 99.2 99 20 177/84 (115) 98 03/17/18 04:00 97 03/17/18 04:00 98.0 94 20 143/66 (91) 100 03/17/18 00:00 98.1 96 18 149/71 (97) 100 03/17/18 00:00 93 03/16/18 21:00 Room Air 03/16/18 20:42 Nasal Cannula 2.0 28 03/16/18 20:41 100 Nasal Cannula 2.0 28 03/16/18 20:00 93 03/16/18 20:00 97.9 96 20 145/65 (91) 100 03/16/18 18:27 92 169/92 03/16/18 16:00 98.2 95 20 147/63 (91) 99 03/16/18 16:00 92 03/16/18 12:59 137/70 03/16/18 12:00 98 03/16/18 11:45 98.1 97 20 157/70 (99) 99 03/16/18 11:30 98.2 100 20 161/73 (102) 98 03/16/18 10:15 Nasal Cannula 2.0 28 03/16/18 10:15 100 Nasal Cannula 2.0 28 I&O Intake and Output 03/16/18 03/17/18 18:59 06:59 Intake Total 1225 ml Output Total 800 ml 800 ml Balance -800 ml 425 ml Intake Free Water 90 ml IV Total 655 ml Tube Feeding 480 ml Output Urine Total 800 ml 650 ml Stool Total 150 ml Dressing: saturated Wound: clean, other Drains: other Cardiovascular: RSR Respiratory: clear Abdomen: soft, non-tender, present bowel sounds Extremities: no cyanosis, other Laboratory Tests Test 03/17/18 03:45 White Blood Count 13.5 K/UL (4.8-10.8) H Red Blood Count 3.90 M/UL (4.20-5.40) L Hemoglobin 10.8 G/DL (12.0-16.0) #L Hematocrit 32.9 % (37.0-47.0) #L Mean Corpuscular Volume 84 FL (80-99) Mean Corpuscular Hemoglobin 27.7 PG (27.0-31.0) Mean Corpuscular Hemoglobin Concent 32.9 G/DL (32.0-36.0) Red Cell Distribution Width 13.2 % (11.6-14.8) Platelet Count 200 K/UL (150-450) Mean Platelet Volume 8.4 FL (6.5-10.1) Neutrophils (%) (Auto) 74.1 % (45.0-75.0) Lymphocytes (%) (Auto) 15.7 % (20.0-45.0) L Monocytes (%) (Auto) 7.4 % (1.0-10.0) Eosinophils (%) (Auto) 2.2 % (0.0-3.0) Basophils (%) (Auto) 0.6 % (0.0-2.0) Sodium Level 146 MMOL/L (136-145) H Potassium Level 4.2 MMOL/L (3.5-5.1) Chloride Level 114 MMOL/L (98-107) H Carbon Dioxide Level 25 MMOL/L (21-32) Anion Gap 7 mmol/L (5-15) Blood Urea Nitrogen 42 mg/dL (7-18) H Creatinine 1.8 MG/DL (0.55-1.30) H Estimat Glomerular Filtration Rate mL/min (>60) Glucose Level 144 MG/DL (74-106) H Calcium Level 8.4 MG/DL (8.5-10.1) L Phosphorus Level 3.3 MG/DL (2.5-4.9) Magnesium Level 1.9 MG/DL (1.8-2.4) Total Bilirubin 0.3 MG/DL (0.2-1.0) Aspartate Amino Transf (AST/SGOT) 57 U/L (15-37) H Alanine Aminotransferase (ALT/SGPT) 52 U/L (12-78) Alkaline Phosphatase 171 U/L (46-116) H Total Protein 5.4 G/DL (6.4-8.2) L Albumin 1.8 G/DL (3.4-5.0) L Globulin 3.6 g/dL Albumin/Globulin Ratio 0.5 (1.0-2.7) L Random Vancomycin Level 20.8 ug/mL Plan Problems: (1) Abnormal LFTs Assessment & Plan: likely shock liver from overt sepsis. labs improving abdominal ultrasound reviewed recovering / resolved (2) Decubitus ulcer of sacral region, unstageable Assessment & Plan: full thickness pressure injury (L)4cm x(W)3.4cm with approx 80% yellow slough ,otherwise pink ,(+) maceration.Hyperpigmentation periwound bordered by darker skin tone. DTPI noted to L heel oozing small amt serosanguineous exudate (L)6cm x (W)9cm.Wound bed fluctuant.DTPI noted to medial R heel (L)2cm x (W)2.5cm dry area noted along border but wound is fluctuant centrally. present upon admission. will be cared for during hospital stay will plan for debridement once stable unlikely etiology of leukocytosis wound improving since admission Tx.Plan: Cleanse sacral wound with Saline.Apply Therahoney gel .Apply Cavilon to borders .Cover with Optifoam drsg Daily and prn. Apply Cavilon wipe to R and L heels. Cover with Biatain drsg.Change prn. Reposition at least every 2hours or as tolerated. Off-load heels with pillow. (3) Severe sepsis Assessment & Plan: improving leukocytosis labs noted cont current plan Jean Marie Park Mar 17, 2018 09:23
[2018-03-17] MEDS: Micafungin 100 MG in NS 110 ML IVPB SCH (09:45)
[2018-03-17] MEDS: Meropenem 500 MG in NS 55 ML IVPB SCH (09:45)
[2018-03-17] MEDS ORDERED: dilTIAZem HCl 30mg tab GT SCH (10:15)
[2018-03-17 12:00] VITALS: BP 176/90
[2018-03-17] MEDS: Nitroglycerin Patch 0.4mg TDERMAL SCH (12:16)
[2018-03-17] MEDS ORDERED: Tubing IV Secondary IV ONE ×2 (13:21→13:30)
[2018-03-17] MEDS ORDERED: NS 275ml ONE ×2 (13:21→13:30)
[2018-03-17] MEDS ORDERED: Tubing Blood Filter IV ONE ×2 (13:21→13:30)
--- NOTE | 2018-03-17 14:59 | Nephrology Progress Note ---
Assessment/Plan Problem List: (1) MARK (acute kidney injury) (2) CKD (chronic kidney disease) (3) Sepsis (4) Respiratory failure (5) Shock (6) Anemia Assessment acute on chronic renal failure: Oliguric ATN resolving Hypotension? due to sepsis: Shock Acute respiratory failure PEG DM Shock liver Sever HypoAlbuminemia Plan now extubated 2D echo Ej Fx 55 % transfused 03/16 increase cardiazem- DC IV fluid monitor Vanco levels on GT feeding Albumin bolus as needed stool C dif DC Bicitra GT pulm toilet urine studies avoid Nephrotoxics Monitor renal parameters PADMA: Cholelithiasis. 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0 28 03/16/18 20:00 93 03/16/18 20:00 97.9 96 20 145/65 (91) 100 03/16/18 18:27 92 169/92 03/16/18 16:00 98.2 95 20 147/63 (91) 99 03/16/18 16:00 92 Intake and Output 03/16/18 03/17/18 19:00 07:00 Intake Total 120 ml 1105 ml Output Total 800 ml 800 ml Balance -680 ml 305 ml Intake Free Water 30 ml 60 ml IV Total 50 ml 605 ml Tube Feeding 40 ml 440 ml Output Urine Total 800 ml 650 ml Stool Total 150 ml Laboratory Tests 03/17/18 03:45: White Blood Count 13.5H, Red Blood Count 3.90L, Hemoglobin 10.8#L, Hematocrit 32.9#L, Mean Corpuscular Volume 84, Mean Corpuscular Hemoglobin 27.7, Mean Corpuscular Hemoglobin Concent 32.9, Red Cell Distribution Width 13.2, Platelet Count 200, Mean Platelet Volume 8.4, Neutrophils (%) (Auto) 74.1, Lymphocytes (% ) (Auto) 15.7L, Monocytes (%) (Auto) 7.4, Eosinophils (%) (Auto) 2.2, Basophils (%) (Auto) 0.6, Sodium Level 146H, Potassium Level 4.2, Chloride Level 114H, Carbon Dioxide Level 25, Anion Gap 7, Blood Urea Nitrogen 42H, Creatinine 1.8H, Estimat Glomerular Filtration Rate , Glucose Level 144H, Calcium Level 8.4L, Phosphorus Level 3.3, Magnesium Level 1.9, Total Bilirubin 0.3, Aspartate Amino Transf (AST/SGOT) 57H, Alanine Aminotransferase (ALT/SGPT) 52, Alkaline Phosphatase 171H, Total Protein 5.4L, Albumin 1.8L, Globulin 3.6, Albumin/ Globulin Ratio 0.5L, Random Vancomycin Level 20.8 Height (Feet): 5 Height (Inches): 10.00 Weight (Pounds): 166 General Appearance: no apparent distress Cardiovascular: tachycardia Respiratory/Chest: decreased breath sounds Abdomen: distended Objective no change Phil Ortiz MD Mar 17, 2018 14:59
--- NOTE | 2018-03-17 15:45 | Cardiology Progress Note ---
Assessment/Plan Assessment/Plan 1. Septic shock, resolved, 2D echocardiography with normal LV systolic function with normal intracardiac filling pressures. 2. Atrial fibrillation with rapid ventricular response, converted to SR, continue the current regimen. 3. History of hypertension, DC amlodipine, would like to switch to B-blockers. 4. History of diabetes mellitus. 5. NSTEMI type II, conservative management. Subjective Subjective Sinus rhythm at rate of 98. Objective Last 24 Hour Vital Signs Date Time Temp Pulse Resp B/P (MAP) Pulse Ox O2 Delivery O2 Flow Rate FiO2 03/17/18 12:16 176/90 03/17/18 12:00 98.4 98 20 176/90 (118) 100 03/17/18 12:00 99 03/17/18 10:23 92 164/77 03/17/18 09:00 Room Air 03/17/18 08:00 93 03/17/18 08:00 99.2 99 20 177/84 (115) 98 03/17/18 04:00 97 03/17/18 04:00 98.0 94 20 143/66 (91) 100 03/17/18 00:00 98.1 96 18 149/71 (97) 100 03/17/18 00:00 93 03/16/18 21:00 Room Air 03/16/18 20:42 Nasal Cannula 2.0 28 03/16/18 20:41 100 Nasal Cannula 2.0 28 03/16/18 20:00 93 03/16/18 20:00 97.9 96 20 145/65 (91) 100 03/16/18 18:27 92 169/92 03/16/18 16:00 98.2 95 20 147/63 (91) 99 03/16/18 16:00 92 Intake and Output 03/16/18 03/17/18 19:00 07:00 Intake Total 120 ml 1105 ml Output Total 800 ml 800 ml Balance -680 ml 305 ml Intake Free Water 30 ml 60 ml IV Total 50 ml 605 ml Tube Feeding 40 ml 440 ml Output Urine Total 800 ml 650 ml Stool Total 150 ml 2D Echo: LVEF 55%, Mild LVH, Grade I LVDD, RVSP 20 mmHg Laboratory Tests Test 03/17/18 03:45 White Blood Count 13.5 K/UL (4.8-10.8) H Red Blood Count 3.90 M/UL (4.20-5.40) L Hemoglobin 10.8 G/DL (12.0-16.0) #L Hematocrit 32.9 % (37.0-47.0) #L Mean Corpuscular Volume 84 FL (80-99) Mean Corpuscular Hemoglobin 27.7 PG (27.0-31.0) Mean Corpuscular Hemoglobin Concent 32.9 G/DL (32.0-36.0) Red Cell Distribution Width 13.2 % (11.6-14.8) Platelet Count 200 K/UL (150-450) Mean Platelet Volume 8.4 FL (6.5-10.1) Neutrophils (%) (Auto) 74.1 % (45.0-75.0) Lymphocytes (%) (Auto) 15.7 % (20.0-45.0) L Monocytes (%) (Auto) 7.4 % (1.0-10.0) Eosinophils (%) (Auto) 2.2 % (0.0-3.0) Basophils (%) (Auto) 0.6 % (0.0-2.0) Sodium Level 146 MMOL/L (136-145) H Potassium Level 4.2 MMOL/L (3.5-5.1) Chloride Level 114 MMOL/L (98-107) H Carbon Dioxide Level 25 MMOL/L (21-32) Anion Gap 7 mmol/L (5-15) Blood Urea Nitrogen 42 mg/dL (7-18) H Creatinine 1.8 MG/DL (0.55-1.30) H Estimat Glomerular Filtration Rate mL/min (>60) Glucose Level 144 MG/DL (74-106) H Calcium Level 8.4 MG/DL (8.5-10.1) L Phosphorus Level 3.3 MG/DL (2.5-4.9) Magnesium Level 1.9 MG/DL (1.8-2.4) Total Bilirubin 0.3 MG/DL (0.2-1.0) Aspartate Amino Transf (AST/SGOT) 57 U/L (15-37) H Alanine Aminotransferase (ALT/SGPT) 52 U/L (12-78) Alkaline Phosphatase 171 U/L (46-116) H Total Protein 5.4 G/DL (6.4-8.2) L Albumin 1.8 G/DL (3.4-5.0) L Globulin 3.6 g/dL Albumin/Globulin Ratio 0.5 (1.0-2.7) L Random Vancomycin Level 20.8 ug/mL Objective HEENT: Atraumatic and normocephalic. Anicteric. Pupils are equal, round, and reactive to light and accommodation. Extraocular muscles intact. NECK: JVP less than 5 cm. No carotid bruits. Carotid upstrokes 2+ bilaterally. CARDIOVASCULAR SYSTEM: Normal S1, S2. Regular rhythm. No murmurs, gallops, or rubs. LUNGS: Diminished breath sounds in both bases. ABDOMEN: Soft, nontender, and nondistended. No hepatosplenomegaly. Positive G-tube in place. EXTREMITIES: No evidence of edema, clubbing, or cyanosis. Everett Tomas MD Mar 17, 2018 15:45
[2018-03-17 16:00] VITALS: BP 163/78
--- NOTE | 2018-03-17 19:33 | General Progress Note ---
Assessment/Plan Problem List: (1) Seizure disorder ICD Codes: G40.909 - Epilepsy, unspecified, not intractable, without status epilepticus SNOMED: 154826320 (2) Encephalopathy due to metabolic factor or toxin SNOMED: 094150693 Status: stable Assessment/Plan (1) Seizure disorder ICD Codes: G40.909 - Epilepsy, unspecified, not intractable, without status epilepticus SNOMED: 361394543 (2) Encephalopathy due to metabolic factor or toxin SNOMED: 212047828 Status: unchanged Assessment/Plan seroquel prn Subjective Neurologic/Psychiatric: Reports: anxiety, depressed Allergies: Coded Allergies: PENICILLINS (Unverified Allergy, Mild, 12/04/12) Objective Last 24 Hour Vital Signs Date Time Temp Pulse Resp B/P (MAP) Pulse Ox O2 Delivery O2 Flow Rate FiO2 03/17/18 16:00 98.8 91 16 163/78 (106) 95 03/17/18 16:00 87 03/17/18 12:16 176/90 03/17/18 12:00 98.4 98 20 176/90 (118) 100 03/17/18 12:00 99 03/17/18 10:23 92 164/77 03/17/18 09:00 Room Air 03/17/18 08:00 93 03/17/18 08:00 99.2 99 20 177/84 (115) 98 03/17/18 04:00 97 03/17/18 04:00 98.0 94 20 143/66 (91) 100 03/17/18 00:00 98.1 96 18 149/71 (97) 100 03/17/18 00:00 93 03/16/18 21:00 Room Air 03/16/18 20:42 Nasal Cannula 2.0 28 03/16/18 20:41 100 Nasal Cannula 2.0 28 03/16/18 20:00 93 03/16/18 20:00 97.9 96 20 145/65 (91) 100 Intake and Output 03/16/18 03/17/18 19:00 07:00 Intake Total 120 ml 1105 ml Output Total 800 ml 800 ml Balance -680 ml 305 ml Intake Free Water 30 ml 60 ml IV Total 50 ml 605 ml Tube Feeding 40 ml 440 ml Output Urine Total 800 ml 650 ml Stool Total 150 ml Laboratory Tests 03/17/18 03:45: White Blood Count 13.5H, Red Blood Count 3.90L, Hemoglobin 10.8#L, Hematocrit 32.9#L, Mean Corpuscular Volume 84, Mean Corpuscular Hemoglobin 27.7, Mean Corpuscular Hemoglobin Concent 32.9, Red Cell Distribution Width 13.2, Platelet Count 200, Mean Platelet Volume 8.4, Neutrophils (%) (Auto) 74.1, Lymphocytes (% ) (Auto) 15.7L, Monocytes (%) (Auto) 7.4, Eosinophils (%) (Auto) 2.2, Basophils (%) (Auto) 0.6, Sodium Level 146H, Potassium Level 4.2, Chloride Level 114H, Carbon Dioxide Level 25, Anion Gap 7, Blood Urea Nitrogen 42H, Creatinine 1.8H, Estimat Glomerular Filtration Rate , Glucose Level 144H, Calcium Level 8.4L, Phosphorus Level 3.3, Magnesium Level 1.9, Total Bilirubin 0.3, Aspartate Amino Transf (AST/SGOT) 57H, Alanine Aminotransferase (ALT/SGPT) 52, Alkaline Phosphatase 171H, Total Protein 5.4L, Albumin 1.8L, Globulin 3.6, Albumin/ Globulin Ratio 0.5L, Random Vancomycin Level 20.8 Height (Feet): 5 Height (Inches): 10.00 Weight (Pounds): 166 General Appearance: no apparent distress, alert, agitated China Kidd MD Mar 17, 2018 19:33
--- NOTE | 2018-03-17 19:52 | Pulmonology Progress Note ---
Assessment/Plan Problems: (1) Severe sepsis (2) UTI (urinary tract infection) (3) Respiratory failure (4) Metabolic acidosis (5) Decubitus ulcer of sacral region, unstageable (6) Abnormal LFTs (7) Sepsis (8) Seizure disorder (9) CKD (chronic kidney disease) (10) Encephalopathy due to metabolic factor or toxin (11) Shock Assessment/Plan ASSESSMENT: * SIRS/SEPSIS * Shock, likely septic * VDRF, extubated 03/13 * MSOF * MARK on CKD * Abnormal LFT's - IMPROVED * NSTEMI, likely demand ischemia * Mild PVC on CXR & elevated BNP but clinically appears dry * ? ADHF * Sz DO * NHR * Bedbound @ baseline * Anemia * S/P GT PLAN: * Optimize pulmonary hygiene/mobilize as tolerated * Titrate down FiO2 to keep SaO2 > 92% * PRN HHN's * Monitor volumes and renal function * GT BICITRA per renal * F/U renal recs, replete electrolytes and free water * F/U cards recs * Zyvox, Linda per ID, monitor WCt * GTF's * Continue HEP SQ * Continue AED's * FC Subjective Allergies: Coded Allergies: PENICILLINS (Unverified Allergy, Mild, 12/04/12) Subjective APOORVA, AFVSS, on RA No distress, chet TF's Objective Last 24 Hour Vital Signs Date Time Temp Pulse Resp B/P (MAP) Pulse Ox O2 Delivery O2 Flow Rate FiO2 03/17/18 16:00 98.8 91 16 163/78 (106) 95 03/17/18 16:00 87 03/17/18 12:16 176/90 03/17/18 12:00 98.4 98 20 176/90 (118) 100 03/17/18 12:00 99 03/17/18 10:23 92 164/77 03/17/18 09:00 Room Air 03/17/18 08:00 93 03/17/18 08:00 99.2 99 20 177/84 (115) 98 03/17/18 04:00 97 03/17/18 04:00 98.0 94 20 143/66 (91) 100 03/17/18 00:00 98.1 96 18 149/71 (97) 100 03/17/18 00:00 93 03/16/18 21:00 Room Air 03/16/18 20:42 Nasal Cannula 2.0 28 03/16/18 20:41 100 Nasal Cannula 2.0 28 03/16/18 20:00 93 03/16/18 20:00 97.9 96 20 145/65 (91) 100 Intake and Output 03/16/18 03/17/18 19:00 07:00 Intake Total 120 ml 1105 ml Output Total 800 ml 800 ml Balance -680 ml 305 ml Intake Free Water 30 ml 60 ml IV Total 50 ml 605 ml Tube Feeding 40 ml 440 ml Output Urine Total 800 ml 650 ml Stool Total 150 ml General Appearance: no acute distress, cachetic HEENT: normocephalic, atraumatic Respiratory/Chest: chest wall non-tender, lungs clear, normal breath sounds, no respiratory distress, no accessory muscle use Cardiovascular: normal peripheral pulses, normal rate, regular rhythm Abdomen: normal bowel sounds, soft, non tender, no organomegaly, non distended , other - GT Extremities: no cyanosis, no clubbing, no edema Laboratory Tests 03/17/18 03:45: White Blood Count 13.5H, Red Blood Count 3.90L, Hemoglobin 10.8#L, Hematocrit 32.9#L, Mean Corpuscular Volume 84, Mean Corpuscular Hemoglobin 27.7, Mean Corpuscular Hemoglobin Concent 32.9, Red Cell Distribution Width 13.2, Platelet Count 200, Mean Platelet Volume 8.4, Neutrophils (%) (Auto) 74.1, Lymphocytes (% ) (Auto) 15.7L, Monocytes (%) (Auto) 7.4, Eosinophils (%) (Auto) 2.2, Basophils (%) (Auto) 0.6, Sodium Level 146H, Potassium Level 4.2, Chloride Level 114H, Carbon Dioxide Level 25, Anion Gap 7, Blood Urea Nitrogen 42H, Creatinine 1.8H, Estimat Glomerular Filtration Rate , Glucose Level 144H, Calcium Level 8.4L, Phosphorus Level 3.3, Magnesium Level 1.9, Total Bilirubin 0.3, Aspartate Amino Transf (AST/SGOT) 57H, Alanine Aminotransferase (ALT/SGPT) 52, Alkaline Phosphatase 171H, Total Protein 5.4L, Albumin 1.8L, Globulin 3.6, Albumin/ Globulin Ratio 0.5L, Random Vancomycin Level 20.8 Current Medications Medications (Trade) Dose Ordered Sig/Gelacio Route PRN Reason Start Time Stop Time Status Last Admin Dose Admin Acetaminophen (Tylenol) 650 mg Q6H PRN GT FEVER 03/15/18 17:30 04/07/18 17:29 Albuterol/ Ipratropium (Albuterol/ Ipratropium) 3 ml Q4H PRN HHN Shortness of Breath 03/15/18 17:30 03/18/18 17:29 Aspirin (ASA) 81 mg DAILY NG 03/16/18 09:00 04/08/18 08:59 03/17/18 08:08 Chlorhexidine Gluconate (Xiomara-Hex 2%) 1 applic DAILY@2000 TOPIC 03/15/18 20:00 04/08/18 22:29 03/16/18 21:24 Dextrose (Dextrose 50%) 25 ml Q30M PRN IV Hypoglycemia 03/15/18 17:45 04/07/18 15:14 Dextrose (Dextrose 50%) 50 ml Q30M PRN IV Hypoglycemia 03/15/18 17:45 04/07/18 15:14 Diltiazem HCl (Cardizem) 60 mg EVERY 8 HOURS GT 03/17/18 22:00 04/16/18 10:14 Heparin Sodium (Porcine) (Heparin 5000 units/ml) 5,000 units EVERY 12 HOURS SUBQ 03/15/18 21:00 04/07/18 20:59 03/17/18 08:07 Insulin Aspart (NovoLOG) Q6HR SUBQ 03/15/18 18:00 04/11/18 11:59 03/17/18 18:21 Lansoprazole (Prevacid) 30 mg Q12HR GT 03/16/18 21:00 04/15/18 20:59 03/17/18 08:07 Levetiracetam (Keppra) 750 mg Q12HR GT 03/15/18 21:00 04/07/18 20:59 03/17/18 08:08 Linezolid 300 ml @ 300 mls/hr Q12HR IVPB 03/17/18 21:00 03/24/18 20:59 Micafungin Sodium 100 mg/Sodium Chloride 110 ml @ 110 mls/hr Q24H IVPB 03/16/18 10:00 03/22/18 09:59 03/17/18 09:45 Nitroglycerin (Ntg) 1 patch Q24H TDERMAL 03/16/18 13:00 04/10/18 12:59 03/17/18 12:16 Ondansetron HCl (Zofran) 4 mg Q6H PRN IVP Nausea & Vomiting 03/15/18 17:30 04/07/18 17:29 Quetiapine Fumarate (SEROquel) 12.5 mg Q4H PRN ORAL agitation 03/15/18 17:30 04/08/18 17:29 Javon Gan MD Mar 17, 2018 19:52
[2018-03-17 20:00] VITALS: BP 165/90
[2018-03-17] MEDS: Dyna-Hex 2% Top Sol 2oz TOPIC SCH (20:31)
[2018-03-17] MEDS: Linezolid 600mg/300mL Premix IVPB SCH (20:31)
[2018-03-17] MEDS: dilTIAZem HCl 60mg tab GT SCH (21:19)
[2018-03-18] VITALS: BP 160/84
[2018-03-18] MEDS: NovoLOG Insulin Flexpen SUBQ SCH ×4 (00:29→17:24)
[2018-03-18 03:38] VITALS: BP 170/75
[2018-03-18] MEDS: dilTIAZem HCl 60mg tab GT SCH ×3 (06:21→21:23)
[2018-03-18 08:00] VITALS: BP 177/72
[2018-03-18] MEDS: levETIRAcetam 500mg/5ml Liquid GT SCH ×2 (08:43→21:23)
[2018-03-18] MEDS: Aspirin Baby 81mg NG SCH (08:43)
[2018-03-18] MEDS: Linezolid 600mg/300mL Premix IVPB SCH ×2 (08:43→21:22)
[2018-03-18] MEDS: Heparin 5000 units/ml inj SUBQ SCH ×2 (08:49→21:22)
[2018-03-18] MEDS ORDERED: Tubing IV Secondary IV ONE ×2 (08:52→15:13)
--- NOTE | 2018-03-18 08:52 | General Progress Note ---
Assessment/Plan Assessment/Plan # Anemia of chronic disease -- baseline appears to be 11-12 reviewed labs from 2012 --> at this time decreased, anemia panel has been reviewed and acd --> transfuse as needed, hgb goal >7 --> no evidence of hemolysis noted --> Blood tx: 03/10 --> no evidence of anita bleeding --> monitor coagulopathy on prn basis # Elevated PTT, coagulopathy --> recheck PTT, if still elevated, may be a factor deficiency --> check for factors that are in the extrinsic pathway --> unlikely this will cause massive blood loss # Leukocytosis likely related to septic shock --> on abx and ivf --> appreciate ID recs and workup --> monitor for improvement # Thrombocytopenia likely related to infection, appears baseline 100-150k --> imaging has been reviewed --> medications have been reviewed --> hepatitis panel reviewed from before this admission # Abnormal LFTs --> Currently has normalized. --> likely shock liver from overt sepsis --> trend labs # Decubitus ulcer of sacral region, unstageable, 5cm x 4cm unstagable sacral decubitus ulcer, no drainage, mild periedge edema/erythema, soft, no odor --> will be cared for during hospital stay --> appreciate surg recs # Severe sepsis --> on abx as per ID # Respiratory failure. extubated --> as per pulm Greatly appreciate consultation! Subjective Constitutional: Denies: no symptoms, chills, diaphoresis, fever, malaise, weakness, other HEENT: Denies: no symptoms, eye pain, blurred vision, tearing, double vision, ear pain, ear discharge, nose pain, nose congestion, throat pain, throat swelling, mouth pain, mouth swelling, other Cardiovascular: Denies: no symptoms, chest pain, edema, irregular heart rate, lightheadedness, palpitations, syncope, other Respiratory: Denies: no symptoms, cough, orthopnea, shortness of breath, SOB with excertion, SOB at rest, sputum, stridor, wheezing, other Gastrointestinal/Abdominal: Denies: no symptoms, abdomen distended, abdominal pain, black stools, tarry stools, blood in stool, constipated, diarrhea, difficulty swallowing, nausea, poor appetite, poor fluid intake, rectal bleeding , vomiting, other Genitourinary: Denies: no symptoms, burning, discharge, frequency, flank pain, hematuria, incontinence, pain, urgency, other Allergies: Coded Allergies: PENICILLINS (Unverified Allergy, Mild, 12/04/12) Subjective breathing improved. H/H stable. remains on abx. Objective Last 24 Hour Vital Signs Date Time Temp Pulse Resp B/P (MAP) Pulse Ox O2 Delivery O2 Flow Rate FiO2 03/18/18 06:21 98 165/75 03/18/18 04:00 95 03/18/18 03:38 98.2 97 22 170/75 (106) 99 03/18/18 03:35 170/75 03/18/18 00:00 98.1 93 18 160/84 (109) 97 03/18/18 00:00 93 03/17/18 22:36 Room Air 03/17/18 21:55 Nasal Cannula 2.0 28 03/17/18 21:55 100 Nasal Cannula 2.0 28 03/17/18 21:19 85 165/80 03/17/18 20:00 95 03/17/18 20:00 98.4 98 20 165/90 (115) 100 03/17/18 16:00 98.8 91 16 163/78 (106) 95 03/17/18 16:00 87 03/17/18 12:16 176/90 03/17/18 12:00 98.4 98 20 176/90 (118) 100 03/17/18 12:00 99 03/17/18 10:23 92 164/77 03/17/18 09:00 Room Air Intake and Output 03/17/18 03/18/18 18:59 06:59 Output Total 2200 ml 1800 ml Balance -2200 ml -1800 ml Output Urine Total 1600 ml 1800 ml Stool Total 600 ml # Voids 3 # Bowel Movements 2 Height (Feet): 5 Height (Inches): 10.00 Weight (Pounds): 165 General Appearance: no apparent distress EENT: PERRL/EOMI Neck: normal alignment Cardiovascular: normal rate Respiratory/Chest: chest wall non-tender Abdomen: non tender Extremities: normal range of motion Edema: 1+ Leg (L), 1+ Leg (R) Edema: mild edema Neurologic: no motor/sensory deficits Objective trach, peg Aleksandr Kern MD Mar 18, 2018 08:52
--- NOTE | 2018-03-18 08:59 | Infectious Diseases Prog Note ---
Assessment/Plan Assessment/Plan A; Septic shock, off pressor Candidal sepsis UTI with MRSA & Citrobacter Acute respiratory failure resolved Acute renal failure improving Chronic kidney disease Elevated transaminase Dementia Anemia Catheter tip culture VRE P; Continue Linezolid & Micafungin , repeat blood culture is negative Subjective ROS Limited/Unobtainable: Yes Allergies: Coded Allergies: PENICILLINS (Unverified Allergy, Mild, 12/04/12) Objective Vital Signs Last 24 Hour Vital Signs Date Time Temp Pulse Resp B/P (MAP) Pulse Ox O2 Delivery O2 Flow Rate FiO2 03/18/18 06:21 98 165/75 03/18/18 04:00 95 03/18/18 03:38 98.2 97 22 170/75 (106) 99 03/18/18 03:35 170/75 03/18/18 00:00 98.1 93 18 160/84 (109) 97 03/18/18 00:00 93 03/17/18 22:36 Room Air 03/17/18 21:55 Nasal Cannula 2.0 28 03/17/18 21:55 100 Nasal Cannula 2.0 28 03/17/18 21:19 85 165/80 03/17/18 20:00 95 03/17/18 20:00 98.4 98 20 165/90 (115) 100 03/17/18 16:00 98.8 91 16 163/78 (106) 95 03/17/18 16:00 87 03/17/18 12:16 176/90 03/17/18 12:00 98.4 98 20 176/90 (118) 100 03/17/18 12:00 99 03/17/18 10:23 92 164/77 03/17/18 09:00 Room Air Height (Feet): 5 Height (Inches): 10.00 Weight (Pounds): 165 General Appearance: no acute distress HEENT: mucous membranes moist Respiratory/Chest: lungs clear Cardiovascular: normal rate, other - left arm PICC line Abdomen: soft, non tender, other - GT feeding Extremities: other - edema of hands Neurologic/Psychiatric: disoriented, aphasia Current Medications Medications (Trade) Dose Ordered Sig/Gelacio Route PRN Reason Start Time Stop Time Status Last Admin Dose Admin Acetaminophen (Tylenol) 650 mg Q6H PRN GT FEVER 03/15/18 17:30 04/07/18 17:29 Albuterol/ Ipratropium (Albuterol/ Ipratropium) 3 ml Q4H PRN HHN Shortness of Breath 03/15/18 17:30 03/18/18 17:29 Aspirin (ASA) 81 mg DAILY NG 03/16/18 09:00 04/08/18 08:59 03/18/18 08:43 Chlorhexidine Gluconate (Xiomara-Hex 2%) 1 applic DAILY@2000 TOPIC 03/15/18 20:00 04/08/18 22:29 03/17/18 20:31 Clonidine HCl (Catapres Tab) 0.1 mg Q6H PRN ORAL For High Blood Pressure 03/17/18 21:30 04/16/18 21:29 03/18/18 03:35 Dextrose (Dextrose 50%) 25 ml Q30M PRN IV Hypoglycemia 03/15/18 17:45 04/07/18 15:14 Dextrose (Dextrose 50%) 50 ml Q30M PRN IV Hypoglycemia 03/15/18 17:45 04/07/18 15:14 Diltiazem HCl (Cardizem) 60 mg EVERY 8 HOURS GT 03/17/18 22:00 04/16/18 10:14 03/18/18 06:21 Heparin Sodium (Porcine) (Heparin 5000 units/ml) 5,000 units EVERY 12 HOURS SUBQ 03/15/18 21:00 04/07/18 20:59 03/18/18 08:49 Insulin Aspart (NovoLOG) Q6HR SUBQ 03/15/18 18:00 04/11/18 11:59 03/18/18 06:25 Lansoprazole (Prevacid) 30 mg Q12HR GT 03/16/18 21:00 04/15/18 20:59 03/18/18 08:43 Levetiracetam (Keppra) 750 mg Q12HR GT 03/15/18 21:00 04/07/18 20:59 03/18/18 08:43 Linezolid 300 ml @ 300 mls/hr Q12HR IVPB 03/17/18 21:00 03/24/18 20:59 03/18/18 08:43 Micafungin Sodium 100 mg/Sodium Chloride 110 ml @ 110 mls/hr Q24H IVPB 03/16/18 10:00 03/22/18 09:59 03/17/18 09:45 Nitroglycerin (Ntg) 1 patch Q24H TDERMAL 03/16/18 13:00 04/10/18 12:59 03/17/18 12:16 Ondansetron HCl (Zofran) 4 mg Q6H PRN IVP Nausea & Vomiting 03/15/18 17:30 04/07/18 17:29 Quetiapine Fumarate (SEROquel) 12.5 mg Q4H PRN ORAL agitation 03/15/18 17:30 04/08/18 17:29 Wilder French MD Mar 18, 2018 08:59
[2018-03-18] MEDS ORDERED: Vancomycin 1250mg/D5W 250ml IVPB SCH (09:00)
[2018-03-18] MEDS: Micafungin 100 MG in NS 110 ML IVPB SCH (09:32)
--- NOTE | 2018-03-18 10:26 | Pulmonology Progress Note ---
Assessment/Plan Problems: (1) Severe sepsis (2) UTI (urinary tract infection) (3) Respiratory failure (4) Metabolic acidosis (5) Decubitus ulcer of sacral region, unstageable (6) Abnormal LFTs (7) Sepsis (8) Seizure disorder (9) CKD (chronic kidney disease) (10) Encephalopathy due to metabolic factor or toxin (11) Shock Assessment/Plan ASSESSMENT: * SIRS/SEPSIS - RESOLVED * Shock, likely septic - RESOLVED * VDRF, extubated 03/13 * MSOF - BETTER * MARK on CKD * Abnormal LFT's - IMPROVED * NSTEMI, likely demand ischemia * Mild PVC on CXR & elevated BNP but clinically appears dry * ? ADHF * Sz DO * NHR * Bedbound @ baseline * Anemia * S/P GT PLAN: * Optimize pulmonary hygiene/mobilize as tolerated * Titrate down FiO2 to keep SaO2 > 92% * PRN HHN's * Monitor volumes and renal function * F/U renal recs, replete electrolytes and free water * F/U cards recs * Zyvox, Linda per ID, monitor WCt * GTF's * Continue HEP SQ * Continue AED's * FC Subjective Allergies: Coded Allergies: PENICILLINS (Unverified Allergy, Mild, 12/04/12) Subjective APOORVA, AFVSS, on RA No distress, chet TF's Objective Last 24 Hour Vital Signs Date Time Temp Pulse Resp B/P (MAP) Pulse Ox O2 Delivery O2 Flow Rate FiO2 03/18/18 09:31 177/72 03/18/18 09:11 100 Nasal Cannula 2.0 28 03/18/18 09:11 Nasal Cannula 2.0 28 03/18/18 09:00 Room Air 03/18/18 08:00 98.4 92 20 177/72 (107) 100 03/18/18 08:00 87 03/18/18 06:21 98 165/75 03/18/18 04:00 95 03/18/18 03:38 98.2 97 22 170/75 (106) 99 03/18/18 03:35 170/75 03/18/18 00:00 98.1 93 18 160/84 (109) 97 03/18/18 00:00 93 03/17/18 22:36 Room Air 03/17/18 21:55 Nasal Cannula 2.0 28 03/17/18 21:55 100 Nasal Cannula 2.0 28 03/17/18 21:19 85 165/80 03/17/18 20:00 95 03/17/18 20:00 98.4 98 20 165/90 (115) 100 03/17/18 16:00 98.8 91 16 163/78 (106) 95 03/17/18 16:00 87 03/17/18 12:16 176/90 03/17/18 12:00 98.4 98 20 176/90 (118) 100 03/17/18 12:00 99 Intake and Output 03/17/18 03/18/18 18:59 06:59 Output Total 2200 ml 1800 ml Balance -2200 ml -1800 ml Output Urine Total 1600 ml 1800 ml Stool Total 600 ml # Voids 3 # Bowel Movements 2 General Appearance: cachetic HEENT: normocephalic, atraumatic, anicteric, mucous membranes moist Respiratory/Chest: rhonchi Cardiovascular: normal peripheral pulses, normal rate, regular rhythm Abdomen: normal bowel sounds, soft, non tender, no organomegaly, non distended , other - GT Extremities: no cyanosis, no clubbing, no edema Current Medications Medications (Trade) Dose Ordered Sig/Gelacio Route PRN Reason Start Time Stop Time Status Last Admin Dose Admin Acetaminophen (Tylenol) 650 mg Q6H PRN GT FEVER 03/15/18 17:30 04/07/18 17:29 Albuterol/ Ipratropium (Albuterol/ Ipratropium) 3 ml Q4H PRN HHN Shortness of Breath 03/15/18 17:30 03/18/18 17:29 Aspirin (ASA) 81 mg DAILY NG 03/16/18 09:00 04/08/18 08:59 03/18/18 08:43 Chlorhexidine Gluconate (Xiomara-Hex 2%) 1 applic DAILY@1999 TOPIC 03/15/18 20:00 04/08/18 22:29 03/17/18 20:31 Clonidine HCl (Catapres Tab) 0.1 mg Q6H PRN ORAL For High Blood Pressure 03/17/18 21:30 04/16/18 21:29 03/18/18 09:31 Dextrose (Dextrose 50%) 25 ml Q30M PRN IV Hypoglycemia 03/15/18 17:45 04/07/18 15:14 Dextrose (Dextrose 50%) 50 ml Q30M PRN IV Hypoglycemia 03/15/18 17:45 04/07/18 15:14 Diltiazem HCl (Cardizem) 60 mg EVERY 8 HOURS GT 03/17/18 22:00 04/16/18 10:14 03/18/18 06:21 Heparin Sodium (Porcine) (Heparin 5000 units/ml) 5,000 units EVERY 12 HOURS SUBQ 03/15/18 21:00 04/07/18 20:59 03/18/18 08:49 Insulin Aspart (NovoLOG) Q6HR SUBQ 03/15/18 18:00 04/11/18 11:59 03/18/18 06:25 Lansoprazole (Prevacid) 30 mg Q12HR GT 03/16/18 21:00 04/15/18 20:59 03/18/18 08:43 Levetiracetam (Keppra) 750 mg Q12HR GT 03/15/18 21:00 04/07/18 20:59 03/18/18 08:43 Linezolid 300 ml @ 300 mls/hr Q12HR IVPB 03/17/18 21:00 03/24/18 20:59 03/18/18 08:43 Micafungin Sodium 100 mg/Sodium Chloride 110 ml @ 110 mls/hr Q24H IVPB 03/16/18 10:00 03/22/18 09:59 03/18/18 09:32 Nitroglycerin (Ntg) 1 patch Q24H TDERMAL 03/16/18 13:00 04/10/18 12:59 03/17/18 12:16 Ondansetron HCl (Zofran) 4 mg Q6H PRN IVP Nausea & Vomiting 03/15/18 17:30 04/07/18 17:29 Quetiapine Fumarate (SEROquel) 12.5 mg Q4H PRN ORAL agitation 03/15/18 17:30 04/08/18 17:29 Javon Gan MD Mar 18, 2018 10:26
--- NOTE | 2018-03-18 10:37 | Nephrology Progress Note ---
Assessment/Plan Problem List: (1) MARK (acute kidney injury) (2) CKD (chronic kidney disease) (3) Sepsis (4) Respiratory failure (5) Shock (6) Anemia Assessment acute on chronic renal failure: Oliguric ATN resolving Hypotension? due to sepsis: Shock Acute respiratory failure PEG DM Shock liver Sever HypoAlbuminemia Plan now extubated 2D echo Ej Fx 55 % transfused 03/16 increase cardiazem- DC IV fluid monitor Vanco levels on GT feeding Albumin bolus as needed stool C dif DC Bicitra GT pulm toilet urine studies avoid Nephrotoxics Monitor renal parameters PADMA: Cholelithiasis. 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, consistent with angiomyolipoma no [place] Subjective ROS Limited/Unobtainable: No Constitutional: Reports: malaise, weakness Objective Objective Last 24 Hour Vital Signs Date Time Temp Pulse Resp B/P (MAP) Pulse Ox O2 Delivery O2 Flow Rate FiO2 03/18/18 09:31 177/72 03/18/18 09:11 100 Nasal Cannula 2.0 28 03/18/18 09:11 Nasal Cannula 2.0 28 03/18/18 09:00 Room Air 03/18/18 08:00 98.4 92 20 177/72 (107) 100 03/18/18 08:00 87 03/18/18 06:21 98 165/75 03/18/18 04:00 95 03/18/18 03:38 98.2 97 22 170/75 (106) 99 03/18/18 03:35 170/75 03/18/18 00:00 98.1 93 18 160/84 (109) 97 03/18/18 00:00 93 03/17/18 22:36 Room Air 03/17/18 21:55 Nasal Cannula 2.0 28 03/17/18 21:55 100 Nasal Cannula 2.0 28 03/17/18 21:19 85 165/80 03/17/18 20:00 95 03/17/18 20:00 98.4 98 20 165/90 (115) 100 03/17/18 16:00 98.8 91 16 163/78 (106) 95 03/17/18 16:00 87 03/17/18 12:16 176/90 03/17/18 12:00 98.4 98 20 176/90 (118) 100 03/17/18 12:00 99 Intake and Output 03/17/18 03/18/18 18:59 06:59 Output Total 2200 ml 1800 ml Balance -2200 ml -1800 ml Output Urine Total 1600 ml 1800 ml Stool Total 600 ml # Voids 3 # Bowel Movements 2 Height (Feet): 5 Height (Inches): 10.00 Weight (Pounds): 165 General Appearance: no apparent distress Objective no change Phil Ortiz MD Mar 18, 2018 10:37
[2018-03-18 12:00] VITALS: BP 138/72
[2018-03-18] MEDS: Nitroglycerin Patch 0.4mg TDERMAL SCH (12:14)
--- NOTE | 2018-03-18 12:28 | General Surgery Progress Note ---
General Surgery-Progress Note Subjective Additional Comments no acute events. comfortable. no n/v/f/c. Objective Last 24 Hour Vital Signs Date Time Temp Pulse Resp B/P (MAP) Pulse Ox O2 Delivery O2 Flow Rate FiO2 03/18/18 12:14 138/72 03/18/18 12:00 98.6 84 16 138/72 (94) 100 03/18/18 09:31 177/72 03/18/18 09:11 100 Nasal Cannula 2.0 28 03/18/18 09:11 Nasal Cannula 2.0 28 03/18/18 09:00 Room Air 03/18/18 08:00 98.4 92 20 177/72 (107) 100 03/18/18 08:00 87 03/18/18 06:21 98 165/75 03/18/18 04:00 95 03/18/18 03:38 98.2 97 22 170/75 (106) 99 03/18/18 03:35 170/75 03/18/18 00:00 98.1 93 18 160/84 (109) 97 03/18/18 00:00 93 03/17/18 22:36 Room Air 03/17/18 21:55 Nasal Cannula 2.0 28 03/17/18 21:55 100 Nasal Cannula 2.0 28 03/17/18 21:19 85 165/80 03/17/18 20:00 95 03/17/18 20:00 98.4 98 20 165/90 (115) 100 03/17/18 16:00 98.8 91 16 163/78 (106) 95 03/17/18 16:00 87 I&O Intake and Output 03/17/18 03/18/18 18:59 06:59 Output Total 2200 ml 1800 ml Balance -2200 ml -1800 ml Output Urine Total 1600 ml 1800 ml Stool Total 600 ml # Voids 3 # Bowel Movements 2 Dressing: other Wound: other Drains: other Cardiovascular: RSR Respiratory: clear Abdomen: soft, non-tender, present bowel sounds Extremities: no cyanosis Plan Problems: (1) Abnormal LFTs Assessment & Plan: likely shock liver from overt sepsis. labs improving abdominal ultrasound reviewed recovering / resolved (2) Decubitus ulcer of sacral region, unstageable Assessment & Plan: full thickness pressure injury (L)4cm x(W)3.4cm with approx 80% yellow slough ,otherwise pink ,(+) maceration.Hyperpigmentation periwound bordered by darker skin tone. DTPI noted to L heel oozing small amt serosanguineous exudate (L)6cm x (W)9cm.Wound bed fluctuant.DTPI noted to medial R heel (L)2cm x (W)2.5cm dry area noted along border but wound is fluctuant centrally. present upon admission. will be cared for during hospital stay will plan for debridement once stable unlikely etiology of leukocytosis wound improving since admission Tx.Plan: Cleanse sacral wound with Saline.Apply Therahoney gel .Apply Cavilon to borders .Cover with Optifoam drsg Daily and prn. Apply Cavilon wipe to R and L heels. Cover with Biatain drsg.Change prn. Reposition at least every 2hours or as tolerated. Off-load heels with pillow. (3) Severe sepsis Assessment & Plan: improving leukocytosis improved labs noted AM labs ordered cont current plan Jean Marie Park Mar 18, 2018 12:28
[2018-03-18] MEDS ORDERED: NS 275ml ONE (15:14)
[2018-03-18 16:00] VITALS: BP 151/62
[2018-03-18 20:00] VITALS: BP 175/71
--- NOTE | 2018-03-18 20:25 | General Progress Note ---
Assessment/Plan Problem List: (1) CKD (chronic kidney disease) ICD Codes: N18.9 - Chronic kidney disease, unspecified SNOMED: 794210132 (2) MARK (acute kidney injury) ICD Codes: N17.9 - Acute kidney failure, unspecified SNOMED: 79958315 (3) Sepsis ICD Codes: A41.9 - Sepsis, unspecified organism SNOMED: 75975485 (4) Abnormal LFTs ICD Codes: R94.5 - Abnormal results of liver function studies SNOMED: 245993969 (5) Decubitus ulcer of sacral region, unstageable ICD Codes: L89.150 - Pressure ulcer of sacral region, unstageable SNOMED: 016213175, 260038800 (6) Hyperglycemia ICD Codes: R73.9 - Hyperglycemia, unspecified; N18.9 - Chronic kidney disease, unspecified SNOMED: 53600544 (7) Metabolic acidosis ICD Codes: E87.2 - Acidosis; N18.9 - Chronic kidney disease, unspecified SNOMED: 16478062 (8) Renal failure (ARF), acute on chronic ICD Codes: N17.9 - Acute kidney failure, unspecified; N18.9 - Chronic kidney disease, unspecified SNOMED: 071599849 Qualifiers: Qualified Codes: N17.9 - Acute kidney failure, unspecified; N18.4 - Chronic kidney disease, stage 4 (severe) (9) Anemia ICD Codes: D64.9 - Anemia, unspecified SNOMED: 303637283 Qualifiers: Qualified Codes: D64.9 - Anemia, unspecified (10) Respiratory failure ICD Codes: J96.90 - Respiratory failure, unspecified, unspecified whether with hypoxia or hypercapnia SNOMED: 027714779 Qualifiers: Qualified Codes: J96.00 - Acute respiratory failure, unspecified whether with hypoxia or hypercapnia (11) UTI (urinary tract infection) ICD Codes: N39.0 - Urinary tract infection, site not specified SNOMED: 74308910 Qualifiers: Qualified Codes: T83.511A - Infection and inflammatory reaction due to indwelling urethral catheter, initial encounter; N39.0 - Urinary tract infection , site not specified (12) NSTEMI (non-ST elevated myocardial infarction) ICD Codes: I21.4 - Non-ST elevation (NSTEMI) myocardial infarction SNOMED: 891588653 (13) Severe sepsis ICD Codes: A41.9 - Sepsis, unspecified organism; R65.20 - Severe sepsis without septic shock SNOMED: 50861764 (14) Encephalopathy due to metabolic factor or toxin SNOMED: 758545146 Status: progressing Assessment/Plan resp failure no fever reviewed chart and labs sepsis .abx per id pna azotemia hypokalemia ARF improved Subjective ROS Limited/Unobtainable: Yes Allergies: Coded Allergies: PENICILLINS (Unverified Allergy, Mild, 12/04/12) Objective Last 24 Hour Vital Signs Date Time Temp Pulse Resp B/P (MAP) Pulse Ox O2 Delivery O2 Flow Rate FiO2 03/18/18 16:00 90 03/18/18 16:00 97.3 81 16 151/62 (91) 98 03/18/18 13:21 81 155/69 03/18/18 12:14 138/72 03/18/18 12:00 74 03/18/18 12:00 98.6 84 16 138/72 (94) 100 03/18/18 09:31 177/72 03/18/18 09:11 100 Nasal Cannula 2.0 28 03/18/18 09:11 Nasal Cannula 2.0 28 03/18/18 09:00 Room Air 03/18/18 08:00 98.4 92 20 177/72 (107) 100 03/18/18 08:00 87 03/18/18 06:21 98 165/75 03/18/18 04:00 95 03/18/18 03:38 98.2 97 22 170/75 (106) 99 03/18/18 03:35 170/75 03/18/18 00:00 98.1 93 18 160/84 (109) 97 03/18/18 00:00 93 03/17/18 22:36 Room Air 03/17/18 21:55 Nasal Cannula 2.0 28 03/17/18 21:55 100 Nasal Cannula 2.0 28 03/17/18 21:19 85 165/80 Intake and Output 03/17/18 03/18/18 19:00 07:00 Output Total 2200 ml 1800 ml Balance -2200 ml -1800 ml Output Urine Total 1600 ml 1800 ml Stool Total 600 ml # Voids 3 # Bowel Movements 2 Height (Feet): 5 Height (Inches): 10.00 Weight (Pounds): 165 Cardiovascular: normal rate Respiratory/Chest: lungs clear Abdomen: soft Krzysztof Schneider MD Mar 18, 2018 20:24
[2018-03-18] MEDS: Dyna-Hex 2% Top Sol 2oz TOPIC SCH (21:24)
--- NOTE | 2018-03-18 22:30 | Cardiology Progress Note ---
Assessment/Plan Assessment/Plan 1. Septic shock, resolved, 2D echocardiography with normal LV systolic function with normal intracardiac filling pressures. 2. Atrial fibrillation with rapid ventricular response, converted to SR, continue the current regimen. 3. History of hypertension, continue Diltiazem, would add B-blockers for better double product control. 4. History of diabetes mellitus. 5. NSTEMI type II, conservative management. Subjective Subjective Sinus rhythm at rate of 98. Objective Last 24 Hour Vital Signs Date Time Temp Pulse Resp B/P (MAP) Pulse Ox O2 Delivery O2 Flow Rate FiO2 03/18/18 21:23 178/71 03/18/18 21:23 74 178/71 03/18/18 20:00 97.3 70 18 175/71 (105) 100 03/18/18 16:00 90 03/18/18 16:00 97.3 81 16 151/62 (91) 98 03/18/18 13:21 81 155/69 03/18/18 12:14 138/72 03/18/18 12:00 74 03/18/18 12:00 98.6 84 16 138/72 (94) 100 03/18/18 09:31 177/72 03/18/18 09:11 100 Nasal Cannula 2.0 28 03/18/18 09:11 Nasal Cannula 2.0 28 03/18/18 09:00 Room Air 03/18/18 08:00 98.4 92 20 177/72 (107) 100 03/18/18 08:00 87 03/18/18 06:21 98 165/75 03/18/18 04:00 95 03/18/18 03:38 98.2 97 22 170/75 (106) 99 03/18/18 03:35 170/75 03/18/18 00:00 98.1 93 18 160/84 (109) 97 03/18/18 00:00 93 03/17/18 22:36 Room Air Intake and Output 03/17/18 03/18/18 19:00 07:00 Output Total 2200 ml 1800 ml Balance -2200 ml -1800 ml Output Urine Total 1600 ml 1800 ml Stool Total 600 ml # Voids 3 # Bowel Movements 2 2D Echo: LVEF 55%, Mild LVH, Grade I LVDD, RVSP 20 mmHg Microbiology Date/Time Source Procedure Growth Status 03/17/18 16:45 Wound Gram Stain - Final Resulted 03/17/18 16:45 Wound Wound Culture - Preliminary Resulted Objective HEENT: Atraumatic and normocephalic. Anicteric. Pupils are equal, round, and reactive to light and accommodation. Extraocular muscles intact. NECK: JVP less than 5 cm. No carotid bruits. Carotid upstrokes 2+ bilaterally. CARDIOVASCULAR SYSTEM: Normal S1, S2. Regular rhythm. No murmurs, gallops, or rubs. LUNGS: Diminished breath sounds in both bases. ABDOMEN: Soft, nontender, and nondistended. No hepatosplenomegaly. Positive G-tube in place. EXTREMITIES: No evidence of edema, clubbing, or cyanosis. Everett Tomas MD Mar 18, 2018 22:30
[2018-03-19] VITALS: BP 138/68
[2018-03-19] MEDS: NovoLOG Insulin Flexpen SUBQ SCH ×4 (00:19→18:19)
[2018-03-19 04:00] VITALS: BP 176/77
[2018-03-19 05:57] LABS: BASOPHILS % (AUTO) 0.7 % (0.0-2.0); EOSINOPHILS % (AUTO) 2.1 % (0.0-3.0); HEMATOCRIT 30.7 % (37.0-47.0); HEMOGLOBIN 10.5 G/DL (12.0-16.0); LYMPHOCYTES % (AUTO) 14.9 % (20.0-45.0); MEAN CORPUSCULAR VOLUME 88 FL (80-99); NEUTROPHILS % (AUTO) 75.3 % (45.0-75.0); PLATELET COUNT 202 K/UL (150-450); RED BLOOD COUNT 3.51 M/UL (4.20-5.40); RED CELL DISTRIBUTION WIDTH 13.9 % (11.6-14.8); WHITE BLOOD COUNT 10.7 K/UL (4.8-10.8)
[2018-03-19] MEDS: dilTIAZem HCl 60mg tab GT SCH ×3 (06:21→21:24)
[2018-03-19 06:34] LABS: ALANINE AMINOTRANSFERASE 33 U/L (12-78); ALBUMIN 1.8 G/DL (3.4-5.0); ALBUMIN/GLOBULIN RATIO 0.5 (1.0-2.7); ALKALINE PHOSPHATASE 160 U/L (46-116); ANION GAP 4 mmol/L (5-15); ASPARTATE AMINO TRANSFERASE 27 U/L (15-37); BILIRUBIN,TOTAL 0.4 MG/DL (0.2-1.0); BLOOD UREA NITROGEN 41 mg/dL (7-18); CALCIUM 8.4 MG/DL (8.5-10.1); CARBON DIOXIDE 27 MMOL/L (21-32); CHLORIDE 111 MMOL/L (98-107); CREATININE 1.9 MG/DL (0.55-1.30); POTASSIUM 5.1 MMOL/L (3.5-5.1); SODIUM 142 MMOL/L (136-145)
[2018-03-19 08:00] VITALS: BP 185/97
[2018-03-19] MEDS: levETIRAcetam 500mg/5ml Liquid GT SCH ×2 (08:14→21:23)
[2018-03-19] MEDS: Aspirin Baby 81mg NG SCH (08:14)
[2018-03-19] MEDS: Heparin 5000 units/ml inj SUBQ SCH ×2 (08:16→21:25)
[2018-03-19] MEDS: Linezolid 600mg/300mL Premix IVPB SCH ×2 (08:25→21:23)
[2018-03-19] MEDS: Micafungin 100 MG in NS 110 ML IVPB SCH (10:06)
--- NOTE | 2018-03-19 10:59 | General Progress Note ---
Assessment/Plan Assessment/Plan # Anemia of chronic disease -- baseline appears to be 11-12 reviewed labs from 2012 --> at this time decreased, anemia panel has been reviewed and c/w acd --> transfuse as needed, hgb goal >7 --> no evidence of hemolysis noted --> Blood tx: 03/10 --> no evidence of anita bleeding --> monitor coagulopathy on prn basis # Elevated PTT, coagulopathy --> recheck PTT, if still elevated, may be a factor deficiency --> unlikely this will cause massive blood loss # Leukocytosis likely related to septic shock --> on abx and ivf --> appreciate ID recs and workup --> monitor for improvement --> cultures per ID # Thrombocytopenia likely related to infection, appears baseline 100-150k --> imaging has been reviewed --> medications have been reviewed --> hepatitis panel reviewed from before this admission # Abnormal LFTs --> Currently has normalized. --> likely shock liver from overt sepsis --> trend labs # Decubitus ulcer of sacral region, unstageable, 5cm x 4cm unstagable sacral decubitus ulcer, no drainage, mild periedge edema/erythema, soft, no odor --> will be cared for during hospital stay --> appreciate surg recs # Severe sepsis --> on abx as per ID, appreciate their recs # Respiratory failure. extubated, on nc --> as per pulm Greatly appreciate consultation! Subjective Allergies: Coded Allergies: PENICILLINS (Unverified Allergy, Mild, 12/04/12) Subjective breathing improved. H/H stable. remains on abx. Objective Last 24 Hour Vital Signs Date Time Temp Pulse Resp B/P (MAP) Pulse Ox O2 Delivery O2 Flow Rate FiO2 03/19/18 08:14 185/97 03/19/18 08:00 97.7 86 20 185/97 (126) 96 03/19/18 06:21 78 170/80 03/19/18 04:00 97.3 87 20 176/77 (110) 100 03/19/18 04:00 74 03/19/18 00:00 68 03/19/18 00:00 98.4 72 18 138/68 (91) 99 03/18/18 21:23 178/71 03/18/18 21:23 74 178/71 03/18/18 21:12 98 Room Air 21 03/18/18 21:12 Room Air 21 03/18/18 21:12 89 20 Room Air 21 03/18/18 21:00 Room Air 03/18/18 20:00 72 03/18/18 20:00 97.3 70 18 175/71 (105) 100 03/18/18 16:00 90 03/18/18 16:00 97.3 81 16 151/62 (91) 98 03/18/18 13:21 81 155/69 03/18/18 12:14 138/72 03/18/18 12:00 74 03/18/18 12:00 98.6 84 16 138/72 (94) 100 Intake and Output 03/18/18 03/19/18 18:59 06:59 Intake Total 500 ml Output Total 1600 ml Balance -1600 ml 500 ml Tube Feeding 500 ml Output Urine Total 1000 ml Stool Total 600 ml # Voids 2 # Bowel Movements 2 Laboratory Tests 03/19/18 05:00: White Blood Count 10.7, Red Blood Count 3.51L, Hemoglobin 10.5L, Hematocrit 30.7L, Mean Corpuscular Volume 88, Mean Corpuscular Hemoglobin 30.0, Mean Corpuscular Hemoglobin Concent 34.2, Red Cell Distribution Width 13.9, Platelet Count 202, Mean Platelet Volume 8.5, Neutrophils (%) (Auto) 75.3H, Lymphocytes ( %) (Auto) 14.9L, Monocytes (%) (Auto) 7.0, Eosinophils (%) (Auto) 2.1, Basophils (%) (Auto) 0.7, Sodium Level 142, Potassium Level 5.1, Chloride Level 111H, Carbon Dioxide Level 27, Anion Gap 4L, Blood Urea Nitrogen 41H, Creatinine 1.9H, Estimat Glomerular Filtration Rate , Glucose Level 206H, Calcium Level 8.4L, Total Bilirubin 0.4, Aspartate Amino Transf (AST/SGOT) 27, Alanine Aminotransferase (ALT/SGPT) 33, Alkaline Phosphatase 160H, Total Protein 5.7L, Albumin 1.8L, Globulin 3.9, Albumin/Globulin Ratio 0.5L Height (Feet): 5 Height (Inches): 10.00 Weight (Pounds): 168 Objective General Appearance: nonverbal EENT: TMs normal, neck is supple Cardiovascular: normal rate and rhythm Respiratory/Chest: lungs clear, minor crackles, ++trach Extremities: non-tender Abd: ++ peg Edema: no cce : ++shaver Back: ++ sacral decub Aleksandr Kern MD Mar 19, 2018 10:59
[2018-03-19 12:00] VITALS: BP 134/45
--- NOTE | 2018-03-19 12:08 | Infectious Diseases Prog Note ---
Assessment/Plan Assessment/Plan A; Septic shock, off pressor Candidal sepsis UTI with MRSA & Citrobacter Acute respiratory failure resolved Acute renal failure improving Chronic kidney disease Elevated transaminase Dementia Anemia Catheter tip culture VRE P; Continue Linezolid & Micafungin X 5 days repeat blood culture is negative Subjective ROS Limited/Unobtainable: Yes Gastrointestinal/Abdominal: Reports: diarrhea Allergies: Coded Allergies: PENICILLINS (Unverified Allergy, Mild, 12/04/12) Objective Vital Signs Last 24 Hour Vital Signs Date Time Temp Pulse Resp B/P (MAP) Pulse Ox O2 Delivery O2 Flow Rate FiO2 03/19/18 09:00 Room Air 03/19/18 08:14 185/97 03/19/18 08:00 97.7 86 20 185/97 (126) 96 03/19/18 08:00 79 03/19/18 06:21 78 170/80 03/19/18 04:00 97.3 87 20 176/77 (110) 100 03/19/18 04:00 74 03/19/18 00:00 68 03/19/18 00:00 98.4 72 18 138/68 (91) 99 03/18/18 21:23 178/71 03/18/18 21:23 74 178/71 03/18/18 21:12 98 Room Air 21 03/18/18 21:12 Room Air 21 03/18/18 21:12 89 20 Room Air 21 03/18/18 21:00 Room Air 03/18/18 20:00 72 03/18/18 20:00 97.3 70 18 175/71 (105) 100 03/18/18 16:00 90 03/18/18 16:00 97.3 81 16 151/62 (91) 98 03/18/18 13:21 81 155/69 03/18/18 12:14 138/72 Height (Feet): 5 Height (Inches): 10.00 Weight (Pounds): 168 General Appearance: no acute distress HEENT: mucous membranes moist Respiratory/Chest: lungs clear Cardiovascular: normal rate, other - left arm PICC line Abdomen: soft, non tender, other - GT , rectal tube Extremities: no edema Neurologic/Psychiatric: aphasia Microbiology Date/Time Source Procedure Growth Status 03/17/18 16:45 Wound Gram Stain - Final Resulted 11/3/18 16:45 Wound Culture - Preliminary Ling Albicans Yeast Species Resulted Laboratory Tests Test 03/19/18 05:00 White Blood Count 10.7 K/UL (4.8-10.8) Red Blood Count 3.51 M/UL (4.20-5.40) L Hemoglobin 10.5 G/DL (12.0-16.0) L Hematocrit 30.7 % (37.0-47.0) L Mean Corpuscular Volume 88 FL (80-99) Mean Corpuscular Hemoglobin 30.0 PG (27.0-31.0) Mean Corpuscular Hemoglobin Concent 34.2 G/DL (32.0-36.0) Red Cell Distribution Width 13.9 % (11.6-14.8) Platelet Count 202 K/UL (150-450) Mean Platelet Volume 8.5 FL (6.5-10.1) Neutrophils (%) (Auto) 75.3 % (45.0-75.0) H Lymphocytes (%) (Auto) 14.9 % (20.0-45.0) L Monocytes (%) (Auto) 7.0 % (1.0-10.0) Eosinophils (%) (Auto) 2.1 % (0.0-3.0) Basophils (%) (Auto) 0.7 % (0.0-2.0) Sodium Level 142 MMOL/L (136-145) Potassium Level 5.1 MMOL/L (3.5-5.1) Chloride Level 111 MMOL/L (98-107) H Carbon Dioxide Level 27 MMOL/L (21-32) Anion Gap 4 mmol/L (5-15) L Blood Urea Nitrogen 41 mg/dL (7-18) H Creatinine 1.9 MG/DL (0.55-1.30) H Estimat Glomerular Filtration Rate mL/min (>60) Glucose Level 206 MG/DL (74-106) H Calcium Level 8.4 MG/DL (8.5-10.1) L Total Bilirubin 0.4 MG/DL (0.2-1.0) Aspartate Amino Transf (AST/SGOT) 27 U/L (15-37) Alanine Aminotransferase (ALT/SGPT) 33 U/L (12-78) Alkaline Phosphatase 160 U/L (46-116) H Total Protein 5.7 G/DL (6.4-8.2) L Albumin 1.8 G/DL (3.4-5.0) L Globulin 3.9 g/dL Albumin/Globulin Ratio 0.5 (1.0-2.7) L Current Medications Medications (Trade) Dose Ordered Sig/Gelacio Route PRN Reason Start Time Stop Time Status Last Admin Dose Admin Acetaminophen (Tylenol) 650 mg Q6H PRN GT FEVER 03/15/18 17:30 04/07/18 17:29 Aspirin (ASA) 81 mg DAILY NG 03/16/18 09:00 04/08/18 08:59 03/19/18 08:14 Chlorhexidine Gluconate (Xiomara-Hex 2%) 1 applic DAILY@2000 TOPIC 03/15/18 20:00 04/08/18 22:29 03/18/18 21:24 Clonidine HCl (Catapres Tab) 0.1 mg Q6H PRN ORAL For High Blood Pressure 03/17/18 21:30 04/16/18 21:29 03/19/18 08:14 Dextrose (Dextrose 50%) 25 ml Q30M PRN IV Hypoglycemia 03/15/18 17:45 04/07/18 15:14 Dextrose (Dextrose 50%) 50 ml Q30M PRN IV Hypoglycemia 03/15/18 17:45 04/07/18 15:14 Diltiazem HCl (Cardizem) 60 mg EVERY 8 HOURS GT 03/17/18 22:00 04/16/18 10:14 03/19/18 06:21 Heparin Sodium (Porcine) (Heparin 5000 units/ml) 5,000 units EVERY 12 HOURS SUBQ 03/15/18 21:00 04/07/18 20:59 03/19/18 08:16 Insulin Aspart (NovoLOG) Q6HR SUBQ 03/15/18 18:00 04/11/18 11:59 03/19/18 12:02 Lansoprazole (Prevacid) 30 mg Q12HR GT 03/16/18 21:00 04/15/18 20:59 03/19/18 08:14 Levetiracetam (Keppra) 750 mg Q12HR GT 03/15/18 21:00 04/07/18 20:59 03/19/18 08:14 Linezolid 300 ml @ 300 mls/hr Q12HR IVPB 03/17/18 21:00 03/24/18 20:59 03/19/18 08:25 Micafungin Sodium 100 mg/Sodium Chloride 110 ml @ 110 mls/hr Q24H IVPB 03/16/18 10:00 03/22/18 09:59 03/19/18 10:06 Nitroglycerin (Ntg) 1 patch Q24H TDERMAL 03/16/18 13:00 04/10/18 12:59 03/18/18 12:14 Ondansetron HCl (Zofran) 4 mg Q6H PRN IVP Nausea & Vomiting 03/15/18 17:30 04/07/18 17:29 Quetiapine Fumarate (SEROquel) 12.5 mg Q4H PRN ORAL agitation 03/15/18 17:30 04/08/18 17:29 Wilder French MD Mar 19, 2018 12:08
--- NOTE | 2018-03-19 12:39 | General Surgery Progress Note ---
General Surgery-Progress Note Subjective Symptoms: improved Additional Comments doing much better. leukocytosis resolved. wound debrided today at bedside and clean. Objective Last 24 Hour Vital Signs Date Time Temp Pulse Resp B/P (MAP) Pulse Ox O2 Delivery O2 Flow Rate FiO2 03/19/18 12:00 97.3 73 18 134/45 (74) 98 03/19/18 09:00 Room Air 03/19/18 08:14 185/97 03/19/18 08:00 97.7 86 20 185/97 (126) 96 03/19/18 08:00 79 03/19/18 06:21 78 170/80 03/19/18 04:00 97.3 87 20 176/77 (110) 100 03/19/18 04:00 74 03/19/18 00:00 68 03/19/18 00:00 98.4 72 18 138/68 (91) 99 03/18/18 21:23 178/71 03/18/18 21:23 74 178/71 03/18/18 21:12 98 Room Air 21 03/18/18 21:12 Room Air 21 03/18/18 21:12 89 20 Room Air 21 03/18/18 21:00 Room Air 03/18/18 20:00 72 03/18/18 20:00 97.3 70 18 175/71 (105) 100 03/18/18 16:00 90 03/18/18 16:00 97.3 81 16 151/62 (91) 98 03/18/18 13:21 81 155/69 I&O Intake and Output 03/18/18 03/19/18 18:59 06:59 Intake Total 500 ml Output Total 1600 ml Balance -1600 ml 500 ml Tube Feeding 500 ml Output Urine Total 1000 ml Stool Total 600 ml # Voids 2 # Bowel Movements 2 Dressing: saturated Wound: clean, intact Drains: other Cardiovascular: RSR Respiratory: clear Abdomen: soft, flat, non-tender, present bowel sounds Extremities: no tenderness, no cyanosis Laboratory Tests Test 03/19/18 05:00 White Blood Count 10.7 K/UL (4.8-10.8) Red Blood Count 3.51 M/UL (4.20-5.40) L Hemoglobin 10.5 G/DL (12.0-16.0) L Hematocrit 30.7 % (37.0-47.0) L Mean Corpuscular Volume 88 FL (80-99) Mean Corpuscular Hemoglobin 30.0 PG (27.0-31.0) Mean Corpuscular Hemoglobin Concent 34.2 G/DL (32.0-36.0) Red Cell Distribution Width 13.9 % (11.6-14.8) Platelet Count 202 K/UL (150-450) Mean Platelet Volume 8.5 FL (6.5-10.1) Neutrophils (%) (Auto) 75.3 % (45.0-75.0) H Lymphocytes (%) (Auto) 14.9 % (20.0-45.0) L Monocytes (%) (Auto) 7.0 % (1.0-10.0) Eosinophils (%) (Auto) 2.1 % (0.0-3.0) Basophils (%) (Auto) 0.7 % (0.0-2.0) Sodium Level 142 MMOL/L (136-145) Potassium Level 5.1 MMOL/L (3.5-5.1) Chloride Level 111 MMOL/L (98-107) H Carbon Dioxide Level 27 MMOL/L (21-32) Anion Gap 4 mmol/L (5-15) L Blood Urea Nitrogen 41 mg/dL (7-18) H Creatinine 1.9 MG/DL (0.55-1.30) H Estimat Glomerular Filtration Rate mL/min (>60) Glucose Level 206 MG/DL (74-106) H Calcium Level 8.4 MG/DL (8.5-10.1) L Total Bilirubin 0.4 MG/DL (0.2-1.0) Aspartate Amino Transf (AST/SGOT) 27 U/L (15-37) Alanine Aminotransferase (ALT/SGPT) 33 U/L (12-78) Alkaline Phosphatase 160 U/L (46-116) H Total Protein 5.7 G/DL (6.4-8.2) L Albumin 1.8 G/DL (3.4-5.0) L Globulin 3.9 g/dL Albumin/Globulin Ratio 0.5 (1.0-2.7) L Plan Problems: (1) Abnormal LFTs Assessment & Plan: likely shock liver from overt sepsis. labs improving abdominal ultrasound reviewed recovering / resolved (2) Decubitus ulcer of sacral region, unstageable Assessment & Plan: full thickness pressure injury (L)4cm x(W)3.4cm with approx 80% yellow slough ,otherwise pink ,(+) maceration.Hyperpigmentation periwound bordered by darker skin tone. DTPI noted to L heel oozing small amt serosanguineous exudate (L)6cm x (W)9cm.Wound bed fluctuant.DTPI noted to medial R heel (L)2cm x (W)2.5cm dry area noted along border but wound is fluctuant centrally. present upon admission. will be cared for during hospital stay will plan for debridement once stable unlikely etiology of leukocytosis wound improving since admission wound cleaned at bedside today and non excisional debridement to clean wound performed. fortunately wound not very deep if only 1-2mm. Tx.Plan: Cleanse sacral wound with Saline..Apply Cavilon to borders .Cover with Optifoam drsg Daily and prn. Apply Cavilon wipe to R and L heels. Cover with Biatain drsg.Change prn. Reposition at least every 2hours or as tolerated. Off-load heels with pillow. (3) Severe sepsis Assessment & Plan: improving leukocytosis resolved labs noted cont current plan Jean Marie Park Mar 19, 2018 12:39
[2018-03-19] MEDS: Nitroglycerin Patch 0.4mg TDERMAL SCH (13:23)
--- NOTE | 2018-03-19 14:27 | Nephrology Progress Note ---
Assessment/Plan Problem List: (1) MARK (acute kidney injury) (2) CKD (chronic kidney disease) (3) Sepsis (4) Respiratory failure (5) Shock (6) Anemia Assessment acute on chronic renal failure: Oliguric ATN resolving Hypotension? due to sepsis: Shock Acute respiratory failure PEG DM Shock liver Sever HypoAlbuminemia Plan now extubated 2D echo Ej Fx 55 % transfused 03/16 increase cardiazem- DC IV fluid monitor Vanco levels on GT feeding Albumin bolus as needed stool C dif DC Bicitra GT pulm toilet urine studies avoid Nephrotoxics Monitor renal parameters PADMA: Cholelithiasis. 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, consistent with angiomyolipoma no [place] Subjective ROS Limited/Unobtainable: No Constitutional: Reports: malaise, weakness Objective Objective Last 24 Hour Vital Signs Date Time Temp Pulse Resp B/P (MAP) Pulse Ox O2 Delivery O2 Flow Rate FiO2 03/19/18 13:23 73 153/63 03/19/18 13:23 153/63 03/19/18 12:00 97.3 73 18 134/45 (74) 98 03/19/18 09:00 Room Air 03/19/18 08:14 185/97 03/19/18 08:00 97.7 86 20 185/97 (126) 96 03/19/18 08:00 79 03/19/18 06:21 78 170/80 03/19/18 04:00 97.3 87 20 176/77 (110) 100 03/19/18 04:00 74 03/19/18 00:00 68 03/19/18 00:00 98.4 72 18 138/68 (91) 99 03/18/18 21:23 178/71 03/18/18 21:23 74 178/71 03/18/18 21:12 98 Room Air 21 03/18/18 21:12 Room Air 21 03/18/18 21:12 89 20 Room Air 21 03/18/18 21:00 Room Air 03/18/18 20:00 72 03/18/18 20:00 97.3 70 18 175/71 (105) 100 03/18/18 16:00 90 03/18/18 16:00 97.3 81 16 151/62 (91) 98 Intake and Output 03/18/18 03/19/18 18:59 06:59 Intake Total 500 ml Output Total 1600 ml Balance -1600 ml 500 ml Tube Feeding 500 ml Output Urine Total 1000 ml Stool Total 600 ml # Voids 2 # Bowel Movements 2 Laboratory Tests 03/19/18 05:00: White Blood Count 10.7, Red Blood Count 3.51L, Hemoglobin 10.5L, Hematocrit 30.7L, Mean Corpuscular Volume 88, Mean Corpuscular Hemoglobin 30.0, Mean Corpuscular Hemoglobin Concent 34.2, Red Cell Distribution Width 13.9, Platelet Count 202, Mean Platelet Volume 8.5, Neutrophils (%) (Auto) 75.3H, Lymphocytes ( %) (Auto) 14.9L, Monocytes (%) (Auto) 7.0, Eosinophils (%) (Auto) 2.1, Basophils (%) (Auto) 0.7, Sodium Level 142, Potassium Level 5.1, Chloride Level 111H, Carbon Dioxide Level 27, Anion Gap 4L, Blood Urea Nitrogen 41H, Creatinine 1.9H, Estimat Glomerular Filtration Rate , Glucose Level 206H, Calcium Level 8.4L, Total Bilirubin 0.4, Aspartate Amino Transf (AST/SGOT) 27, Alanine Aminotransferase (ALT/SGPT) 33, Alkaline Phosphatase 160H, Total Protein 5.7L, Albumin 1.8L, Globulin 3.9, Albumin/Globulin Ratio 0.5L Height (Feet): 5 Height (Inches): 10.00 Weight (Pounds): 168 General Appearance: no apparent distress Cardiovascular: normal rate Respiratory/Chest: decreased breath sounds Abdomen: soft Objective no change Phil Ortiz MD Mar 19, 2018 14:27
[2018-03-19 16:00] VITALS: BP 149/66
[2018-03-19] MEDS ORDERED: Albuterol/Ipratropium 3ml neb HHN PRN (16:45)
--- NOTE | 2018-03-19 16:45 | Pulmonology Progress Note ---
Assessment/Plan Problems: (1) Severe sepsis (2) UTI (urinary tract infection) (3) Respiratory failure (4) Metabolic acidosis (5) Decubitus ulcer of sacral region, unstageable (6) Abnormal LFTs (7) Sepsis (8) Seizure disorder (9) CKD (chronic kidney disease) (10) Encephalopathy due to metabolic factor or toxin (11) Shock Assessment/Plan ASSESSMENT: * SIRS/SEPSIS - RESOLVED * Shock, likely septic - RESOLVED * VDRF, extubated 03/13 * MSOF - BETTER * MARK on CKD * Abnormal LFT's - IMPROVED * NSTEMI, likely demand ischemia * Mild PVC on CXR & elevated BNP but clinically appears dry * ? ADHF * Sz DO * NHR * Bedbound @ baseline * Anemia * S/P GT PLAN: * Optimize pulmonary hygiene/mobilize as tolerated * PRN O2 * PRN HHN's * Monitor volumes and renal function * F/U renal recs, replete electrolytes and free water * F/U cards recs * Zyvox, Linda per ID * GTF's * Continue HEP SQ * Continue AED's * FC Subjective Allergies: Coded Allergies: PENICILLINS (Unverified Allergy, Mild, 12/04/12) Subjective APOORVA, AFVSS, on RA No distress, chet TF's Objective Last 24 Hour Vital Signs Date Time Temp Pulse Resp B/P (MAP) Pulse Ox O2 Delivery O2 Flow Rate FiO2 03/19/18 13:23 73 153/63 03/19/18 13:23 153/63 03/19/18 12:00 71 03/19/18 12:00 97.3 73 18 134/45 (74) 98 03/19/18 09:00 Room Air 03/19/18 08:14 185/97 03/19/18 08:00 97.7 86 20 185/97 (126) 96 03/19/18 08:00 79 03/19/18 06:21 78 170/80 03/19/18 04:00 97.3 87 20 176/77 (110) 100 03/19/18 04:00 74 03/19/18 00:00 68 03/19/18 00:00 98.4 72 18 138/68 (91) 99 03/18/18 21:23 178/71 03/18/18 21:23 74 178/71 03/18/18 21:12 98 Room Air 21 03/18/18 21:12 Room Air 21 03/18/18 21:12 89 20 Room Air 21 03/18/18 21:00 Room Air 03/18/18 20:00 72 03/18/18 20:00 97.3 70 18 175/71 (105) 100 Intake and Output 03/18/18 03/19/18 18:59 06:59 Intake Total 500 ml Output Total 1600 ml Balance -1600 ml 500 ml Tube Feeding 500 ml Output Urine Total 1000 ml Stool Total 600 ml # Voids 2 # Bowel Movements 2 General Appearance: cachetic HEENT: normocephalic, atraumatic, anicteric, mucous membranes moist Respiratory/Chest: chest wall non-tender, lungs clear, normal breath sounds, no respiratory distress, no accessory muscle use Cardiovascular: normal peripheral pulses, normal rate, regular rhythm Abdomen: normal bowel sounds, soft, non tender, no organomegaly, non distended , no mass, other - GT Extremities: no cyanosis, no clubbing, no edema Microbiology Date/Time Source Procedure Growth Status 03/17/18 16:45 Wound Gram Stain - Final Resulted 03/17/18 16:45 Wound Culture - Preliminary Ling Albicans Yeast Species Resulted Laboratory Tests 03/19/18 05:00: White Blood Count 10.7, Red Blood Count 3.51L, Hemoglobin 10.5L, Hematocrit 30.7L, Mean Corpuscular Volume 88, Mean Corpuscular Hemoglobin 30.0, Mean Corpuscular Hemoglobin Concent 34.2, Red Cell Distribution Width 13.9, Platelet Count 202, Mean Platelet Volume 8.5, Neutrophils (%) (Auto) 75.3H, Lymphocytes ( %) (Auto) 14.9L, Monocytes (%) (Auto) 7.0, Eosinophils (%) (Auto) 2.1, Basophils (%) (Auto) 0.7, Sodium Level 142, Potassium Level 5.1, Chloride Level 111H, Carbon Dioxide Level 27, Anion Gap 4L, Blood Urea Nitrogen 41H, Creatinine 1.9H, Estimat Glomerular Filtration Rate , Glucose Level 206H, Calcium Level 8.4L, Total Bilirubin 0.4, Aspartate Amino Transf (AST/SGOT) 27, Alanine Aminotransferase (ALT/SGPT) 33, Alkaline Phosphatase 160H, Total Protein 5.7L, Albumin 1.8L, Globulin 3.9, Albumin/Globulin Ratio 0.5L Current Medications Medications (Trade) Dose Ordered Sig/Gelacio Route PRN Reason Start Time Stop Time Status Last Admin Dose Admin Acetaminophen (Tylenol) 650 mg Q6H PRN GT FEVER 03/15/18 17:30 04/07/18 17:29 Aspirin (ASA) 81 mg DAILY NG 03/16/18 09:00 04/08/18 08:59 03/19/18 08:14 Chlorhexidine Gluconate (Xiomara-Hex 2%) 1 applic DAILY@2000 TOPIC 03/15/18 20:00 04/08/18 22:29 03/18/18 21:24 Clonidine HCl (Catapres Tab) 0.1 mg Q6H PRN ORAL For High Blood Pressure 03/17/18 21:30 04/16/18 21:29 03/19/18 08:14 Dextrose (Dextrose 50%) 25 ml Q30M PRN IV Hypoglycemia 03/15/18 17:45 04/07/18 15:14 Dextrose (Dextrose 50%) 50 ml Q30M PRN IV Hypoglycemia 03/15/18 17:45 04/07/18 15:14 Diltiazem HCl (Cardizem) 60 mg EVERY 8 HOURS GT 03/17/18 22:00 04/16/18 10:14 03/19/18 13:23 Heparin Sodium (Porcine) (Heparin 5000 units/ml) 5,000 units EVERY 12 HOURS SUBQ 03/15/18 21:00 04/07/18 20:59 03/19/18 08:16 Insulin Aspart (NovoLOG) Q6HR SUBQ 03/15/18 18:00 04/11/18 11:59 03/19/18 12:02 Lansoprazole (Prevacid) 30 mg Q12HR GT 03/16/18 21:00 04/15/18 20:59 03/19/18 08:14 Levetiracetam (Keppra) 750 mg Q12HR GT 03/15/18 21:00 04/07/18 20:59 03/19/18 08:14 Linezolid 300 ml @ 300 mls/hr Q12HR IVPB 03/17/18 21:00 03/24/18 20:59 03/19/18 08:25 Micafungin Sodium 100 mg/Sodium Chloride 110 ml @ 110 mls/hr Q24H IVPB 03/16/18 10:00 03/22/18 09:59 03/19/18 10:06 Nitroglycerin (Ntg) 1 patch Q24H TDERMAL 03/16/18 13:00 04/10/18 12:59 03/19/18 13:23 Ondansetron HCl (Zofran) 4 mg Q6H PRN IVP Nausea & Vomiting 03/15/18 17:30 04/07/18 17:29 Quetiapine Fumarate (SEROquel) 12.5 mg Q4H PRN ORAL agitation 03/15/18 17:30 04/08/18 17:29 Javon Gan MD Mar 19, 2018 16:44
[2018-03-19 20:00] VITALS: BP 150/68
[2018-03-19] MEDS: Dyna-Hex 2% Top Sol 2oz TOPIC SCH (21:24)
--- NOTE | 2018-03-19 22:12 | General Progress Note ---
Assessment/Plan Problem List: (1) CKD (chronic kidney disease) ICD Codes: N18.9 - Chronic kidney disease, unspecified SNOMED: 375867891 (2) MARK (acute kidney injury) ICD Codes: N17.9 - Acute kidney failure, unspecified SNOMED: 02775307 (3) Sepsis ICD Codes: A41.9 - Sepsis, unspecified organism SNOMED: 56425784 (4) Abnormal LFTs ICD Codes: R94.5 - Abnormal results of liver function studies SNOMED: 514224707 (5) Decubitus ulcer of sacral region, unstageable ICD Codes: L89.150 - Pressure ulcer of sacral region, unstageable SNOMED: 434309723, 262637525 (6) Hyperglycemia ICD Codes: R73.9 - Hyperglycemia, unspecified; N18.9 - Chronic kidney disease, unspecified SNOMED: 86453227 (7) Metabolic acidosis ICD Codes: E87.2 - Acidosis; N18.9 - Chronic kidney disease, unspecified SNOMED: 14064672 (8) Renal failure (ARF), acute on chronic ICD Codes: N17.9 - Acute kidney failure, unspecified; N18.9 - Chronic kidney disease, unspecified SNOMED: 921299299 Qualifiers: Qualified Codes: N17.9 - Acute kidney failure, unspecified; N18.4 - Chronic kidney disease, stage 4 (severe) (9) Anemia ICD Codes: D64.9 - Anemia, unspecified SNOMED: 152402139 Qualifiers: Qualified Codes: D64.9 - Anemia, unspecified (10) Respiratory failure ICD Codes: J96.90 - Respiratory failure, unspecified, unspecified whether with hypoxia or hypercapnia SNOMED: 125260797 Qualifiers: Qualified Codes: J96.00 - Acute respiratory failure, unspecified whether with hypoxia or hypercapnia (11) UTI (urinary tract infection) ICD Codes: N39.0 - Urinary tract infection, site not specified SNOMED: 61102221 Qualifiers: Qualified Codes: T83.511A - Infection and inflammatory reaction due to indwelling urethral catheter, initial encounter; N39.0 - Urinary tract infection , site not specified (12) NSTEMI (non-ST elevated myocardial infarction) ICD Codes: I21.4 - Non-ST elevation (NSTEMI) myocardial infarction SNOMED: 901367255 (13) Severe sepsis ICD Codes: A41.9 - Sepsis, unspecified organism; R65.20 - Severe sepsis without septic shock SNOMED: 53335746 (14) Encephalopathy due to metabolic factor or toxin SNOMED: 270684559 Status: progressing Assessment/Plan resp insuff cri uti improving no wheezing lethargic reviewed chart and labs sepsis .abx per id pna Subjective ROS Limited/Unobtainable: Yes Allergies: Coded Allergies: PENICILLINS (Unverified Allergy, Mild, 12/04/12) Objective Last 24 Hour Vital Signs Date Time Temp Pulse Resp B/P (MAP) Pulse Ox O2 Delivery O2 Flow Rate FiO2 03/19/18 21:24 73 150/68 03/19/18 21:00 Room Air 03/19/18 20:39 73 18 Room Air 21 03/19/18 20:00 74 03/19/18 20:00 98.3 76 18 150/68 (95) 99 03/19/18 16:00 98.2 73 19 149/66 (93) 98 03/19/18 16:00 72 03/19/18 13:23 73 153/63 03/19/18 13:23 153/63 03/19/18 12:00 71 03/19/18 12:00 97.3 73 18 134/45 (74) 98 03/19/18 09:00 Room Air 03/19/18 08:14 185/97 03/19/18 08:00 97.7 86 20 185/97 (126) 96 03/19/18 08:00 79 03/19/18 06:21 78 170/80 03/19/18 04:00 97.3 87 20 176/77 (110) 100 03/19/18 04:00 74 03/19/18 00:00 68 03/19/18 00:00 98.4 72 18 138/68 (91) 99 Intake and Output 03/18/18 03/19/18 19:00 07:00 Intake Total 500 ml Output Total 1600 ml Balance -1600 ml 500 ml Tube Feeding 500 ml Output Urine Total 1000 ml Stool Total 600 ml # Voids 2 # Bowel Movements 2 Laboratory Tests 03/19/18 05:00: White Blood Count 10.7, Red Blood Count 3.51L, Hemoglobin 10.5L, Hematocrit 30.7L, Mean Corpuscular Volume 88, Mean Corpuscular Hemoglobin 30.0, Mean Corpuscular Hemoglobin Concent 34.2, Red Cell Distribution Width 13.9, Platelet Count 202, Mean Platelet Volume 8.5, Neutrophils (%) (Auto) 75.3H, Lymphocytes ( %) (Auto) 14.9L, Monocytes (%) (Auto) 7.0, Eosinophils (%) (Auto) 2.1, Basophils (%) (Auto) 0.7, Sodium Level 142, Potassium Level 5.1, Chloride Level 111H, Carbon Dioxide Level 27, Anion Gap 4L, Blood Urea Nitrogen 41H, Creatinine 1.9H, Estimat Glomerular Filtration Rate , Glucose Level 206H, Calcium Level 8.4L, Total Bilirubin 0.4, Aspartate Amino Transf (AST/SGOT) 27, Alanine Aminotransferase (ALT/SGPT) 33, Alkaline Phosphatase 160H, Total Protein 5.7L, Albumin 1.8L, Globulin 3.9, Albumin/Globulin Ratio 0.5L Height (Feet): 5 Height (Inches): 10.00 Weight (Pounds): 168 General Appearance: confused Respiratory/Chest: lungs clear Abdomen: soft Krzysztof Schneider MD Mar 19, 2018 22:12
--- NOTE | 2018-03-19 23:06 | General Progress Note ---
Assessment/Plan Problem List: (1) Seizure disorder ICD Codes: G40.909 - Epilepsy, unspecified, not intractable, without status epilepticus SNOMED: 242343048 (2) Encephalopathy due to metabolic factor or toxin SNOMED: 138734221 Status: stable Assessment/Plan (1) Seizure disorder ICD Codes: G40.909 - Epilepsy, unspecified, not intractable, without status epilepticus SNOMED: 864307204 (2) Encephalopathy due to metabolic factor or toxin SNOMED: 364659974 Status: unchanged Assessment/Plan seroquel prn Subjective Date patient seen: Mar 19, 2018 Neurologic/Psychiatric: Reports: anxiety Allergies: Coded Allergies: PENICILLINS (Unverified Allergy, Mild, 12/04/12) Objective Last 24 Hour Vital Signs Date Time Temp Pulse Resp B/P (MAP) Pulse Ox O2 Delivery O2 Flow Rate FiO2 03/19/18 21:24 73 150/68 03/19/18 21:00 Room Air 03/19/18 20:39 73 18 Room Air 21 03/19/18 20:00 74 03/19/18 20:00 98.3 76 18 150/68 (95) 99 03/19/18 16:00 98.2 73 19 149/66 (93) 98 03/19/18 16:00 72 03/19/18 13:23 73 153/63 03/19/18 13:23 153/63 03/19/18 12:00 71 03/19/18 12:00 97.3 73 18 134/45 (74) 98 03/19/18 09:00 Room Air 03/19/18 08:14 185/97 03/19/18 08:00 97.7 86 20 185/97 (126) 96 03/19/18 08:00 79 03/19/18 06:21 78 170/80 03/19/18 04:00 97.3 87 20 176/77 (110) 100 03/19/18 04:00 74 03/19/18 00:00 68 03/19/18 00:00 98.4 72 18 138/68 (91) 99 Intake and Output 03/18/18 03/19/18 19:00 07:00 Intake Total 500 ml Output Total 1600 ml Balance -1600 ml 500 ml Tube Feeding 500 ml Output Urine Total 1000 ml Stool Total 600 ml # Voids 2 # Bowel Movements 2 Laboratory Tests 03/19/18 05:00: White Blood Count 10.7, Red Blood Count 3.51L, Hemoglobin 10.5L, Hematocrit 30.7L, Mean Corpuscular Volume 88, Mean Corpuscular Hemoglobin 30.0, Mean Corpuscular Hemoglobin Concent 34.2, Red Cell Distribution Width 13.9, Platelet Count 202, Mean Platelet Volume 8.5, Neutrophils (%) (Auto) 75.3H, Lymphocytes ( %) (Auto) 14.9L, Monocytes (%) (Auto) 7.0, Eosinophils (%) (Auto) 2.1, Basophils (%) (Auto) 0.7, Sodium Level 142, Potassium Level 5.1, Chloride Level 111H, Carbon Dioxide Level 27, Anion Gap 4L, Blood Urea Nitrogen 41H, Creatinine 1.9H, Estimat Glomerular Filtration Rate , Glucose Level 206H, Calcium Level 8.4L, Total Bilirubin 0.4, Aspartate Amino Transf (AST/SGOT) 27, Alanine Aminotransferase (ALT/SGPT) 33, Alkaline Phosphatase 160H, Total Protein 5.7L, Albumin 1.8L, Globulin 3.9, Albumin/Globulin Ratio 0.5L Height (Feet): 5 Height (Inches): 10.00 Weight (Pounds): 168 General Appearance: no apparent distress, alert, confused China Kidd MD Mar 19, 2018 23:06
[2018-03-20] VITALS (7 sets, daily range): BP systolic 134–189; BP diastolic 45–97
[2018-03-20] MEDS: NovoLOG Insulin Flexpen SUBQ SCH ×5 (00:23→23:51)
--- NOTE | 2018-03-20 01:00 | Cardiology Progress Note ---
Assessment/Plan Assessment/Plan LATE ENTRY NOTE: DATE OF SERVICE: Mar 19, 2018 TIME PATIENT SEEN: 12:22pm 1. Septic shock, resolved, 2D echocardiography with normal LV systolic function with normal intracardiac filling pressures. 2. Atrial fibrillation with rapid ventricular response, converted to SR, continue the current regimen. 3. History of hypertension, would like to switch to B-blockers. 4. History of diabetes mellitus. 5. NSTEMI type II, conservative management. Subjective Subjective Sinus rhythm at rate of 73. Objective Last 24 Hour Vital Signs Date Time Temp Pulse Resp B/P (MAP) Pulse Ox O2 Delivery O2 Flow Rate FiO2 03/19/18 21:24 73 150/68 03/19/18 21:00 Room Air 03/19/18 20:39 73 18 Room Air 21 03/19/18 20:00 74 03/19/18 20:00 98.3 76 18 150/68 (95) 99 03/19/18 16:00 98.2 73 19 149/66 (93) 98 03/19/18 16:00 72 03/19/18 13:23 73 153/63 03/19/18 13:23 153/63 03/19/18 12:00 71 03/19/18 12:00 97.3 73 18 134/45 (74) 98 03/19/18 09:00 Room Air 03/19/18 08:14 185/97 03/19/18 08:00 97.7 86 20 185/97 (126) 96 03/19/18 08:00 79 03/19/18 06:21 78 170/80 03/19/18 04:00 97.3 87 20 176/77 (110) 100 03/19/18 04:00 74 Intake and Output 03/19/18 03/20/18 19:00 07:00 Output Total 800 ml Balance -800 ml Output Urine Total 800 ml 2D Echo: LVEF 55%, Mild LVH, Grade I LVDD, RVSP 20 mmHg Laboratory Tests Test 03/19/18 05:00 White Blood Count 10.7 K/UL (4.8-10.8) Red Blood Count 3.51 M/UL (4.20-5.40) L Hemoglobin 10.5 G/DL (12.0-16.0) L Hematocrit 30.7 % (37.0-47.0) L Mean Corpuscular Volume 88 FL (80-99) Mean Corpuscular Hemoglobin 30.0 PG (27.0-31.0) Mean Corpuscular Hemoglobin Concent 34.2 G/DL (32.0-36.0) Red Cell Distribution Width 13.9 % (11.6-14.8) Platelet Count 202 K/UL (150-450) Mean Platelet Volume 8.5 FL (6.5-10.1) Neutrophils (%) (Auto) 75.3 % (45.0-75.0) H Lymphocytes (%) (Auto) 14.9 % (20.0-45.0) L Monocytes (%) (Auto) 7.0 % (1.0-10.0) Eosinophils (%) (Auto) 2.1 % (0.0-3.0) Basophils (%) (Auto) 0.7 % (0.0-2.0) Sodium Level 142 MMOL/L (136-145) Potassium Level 5.1 MMOL/L (3.5-5.1) Chloride Level 111 MMOL/L (98-107) H Carbon Dioxide Level 27 MMOL/L (21-32) Anion Gap 4 mmol/L (5-15) L Blood Urea Nitrogen 41 mg/dL (7-18) H Creatinine 1.9 MG/DL (0.55-1.30) H Estimat Glomerular Filtration Rate mL/min (>60) Glucose Level 206 MG/DL (74-106) H Calcium Level 8.4 MG/DL (8.5-10.1) L Total Bilirubin 0.4 MG/DL (0.2-1.0) Aspartate Amino Transf (AST/SGOT) 27 U/L (15-37) Alanine Aminotransferase (ALT/SGPT) 33 U/L (12-78) Alkaline Phosphatase 160 U/L (46-116) H Total Protein 5.7 G/DL (6.4-8.2) L Albumin 1.8 G/DL (3.4-5.0) L Globulin 3.9 g/dL Albumin/Globulin Ratio 0.5 (1.0-2.7) L Microbiology Date/Time Source Procedure Growth Status 03/17/18 16:45 Wound Gram Stain - Final Resulted 03/17/18 16:45 Wound Culture - Preliminary Ling Albicans Yeast Species Resulted Objective HEENT: Atraumatic and normocephalic. Anicteric. Pupils are equal, round, and reactive to light and accommodation. Extraocular muscles intact. NECK: JVP less than 5 cm. No carotid bruits. Carotid upstrokes 2+ bilaterally. CARDIOVASCULAR SYSTEM: Normal S1, S2. Regular rhythm. No murmurs, gallops, or rubs. LUNGS: Diminished breath sounds in both bases. ABDOMEN: Soft, nontender, and nondistended. No hepatosplenomegaly. Positive G-tube in place. EXTREMITIES: No evidence of edema, clubbing, or cyanosis. Everett Tomas MD Mar 20, 2018 01:00
[2018-03-20] MEDS: dilTIAZem HCl 60mg tab GT SCH ×2 (05:49→14:28)
--- NOTE | 2018-03-20 07:29 | General Progress Note ---
Assessment/Plan Assessment/Plan # Anemia of chronic disease -- baseline appears to be 11-12 reviewed labs from 2012 --> at this time decreased, anemia panel has been reviewed and c/w acd --> transfuse as needed, hgb goal >7 --> no evidence of hemolysis noted --> Blood tx: 03/10 --> no evidence of anita bleeding --> monitor coagulopathy on prn basis # Elevated PTT, coagulopathy --> recheck PTT, if still elevated, may be a factor deficiency --> unlikely this will cause massive blood loss # Leukocytosis likely related to septic shock --> on abx and ivf --> appreciate ID recs and workup --> monitor for improvement --> cultures per ID # Thrombocytopenia likely related to infection, appears baseline 100-150k --> imaging has been reviewed --> medications have been reviewed --> hepatitis panel is negative, hiv negative # Abnormal LFTs --> Currently has normalized. --> likely shock liver from overt sepsis --> trend labs # Decubitus ulcer of sacral region, unstageable, 5cm x 4cm unstagable sacral decubitus ulcer, no drainage, mild edema/erythema, soft, no odor --> will be cared for during hospital stay --> appreciate surg recs # Severe sepsis --> on abx as per ID, appreciate their recs # Respiratory failure. extubated, on nc --> as per pulm Greatly appreciate consultation! Subjective Constitutional: Denies: no symptoms, chills, diaphoresis, fever, malaise, weakness, other HEENT: Denies: no symptoms, eye pain, blurred vision, tearing, double vision, ear pain, ear discharge, nose pain, nose congestion, throat pain, throat swelling, mouth pain, mouth swelling, other Cardiovascular: Denies: no symptoms, chest pain, edema, irregular heart rate, lightheadedness, palpitations, syncope, other Respiratory: Denies: no symptoms, cough, orthopnea, shortness of breath, SOB with excertion, SOB at rest, sputum, stridor, wheezing, other Gastrointestinal/Abdominal: Denies: no symptoms, abdomen distended, abdominal pain, black stools, tarry stools, blood in stool, constipated, diarrhea, difficulty swallowing, nausea, poor appetite, poor fluid intake, rectal bleeding , vomiting, other Endocrine: Denies: no symptoms, excessive sweating, flushing, intolerance to cold, intolerance to heat, increased hunger, increased thirst, increased urine, unexplained weight gain, unexplained weight loss, other Hematologic/Lymphatic: Denies: no symptoms, anemia, easy bleeding, easy bruising, other Allergies: Coded Allergies: PENICILLINS (Unverified Allergy, Mild, 12/04/12) Subjective Minimally responsive, breathing has improved. remains on abx. Objective Last 24 Hour Vital Signs Date Time Temp Pulse Resp B/P (MAP) Pulse Ox O2 Delivery O2 Flow Rate FiO2 03/20/18 05:49 75 161/64 03/20/18 05:00 97.7 75 20 161/64 (96) 98 03/20/18 04:00 97.3 73 18 134/45 (74) 98 03/20/18 04:00 77 03/20/18 00:00 97.7 86 19 155/97 (116) 99 03/20/18 00:00 77 03/19/18 21:24 73 150/68 03/19/18 21:00 Room Air 03/19/18 20:39 73 18 Room Air 21 03/19/18 20:00 74 03/19/18 20:00 98.3 76 18 150/68 (95) 99 03/19/18 16:00 98.2 73 19 149/66 (93) 98 03/19/18 16:00 72 03/19/18 13:23 73 153/63 03/19/18 13:23 153/63 03/19/18 12:00 71 03/19/18 12:00 97.3 73 18 134/45 (74) 98 03/19/18 09:00 Room Air 03/19/18 08:14 185/97 03/19/18 08:00 97.7 86 20 185/97 (126) 96 03/19/18 08:00 79 Intake and Output 03/19/18 03/20/18 19:00 07:00 Intake Total 500 ml Output Total 800 ml 500 ml Balance -800 ml 0 ml Tube Feeding 500 ml Output Urine Total 800 ml 500 ml Height (Feet): 5 Height (Inches): 10.00 Weight (Pounds): 167 Objective General Appearance: nonverbal EENT: TMs normal, neck is supple Cardiovascular: normal rate and rhythm Respiratory/Chest: lungs clear, minor crackles, ++trach Extremities: non-tender Abd: ++ peg getting gtube feeds Edema: no cce : ++shaver Back: ++ sacral decub Aleksandr Kern MD Mar 20, 2018 07:29
[2018-03-20] MEDS: Metoprolol 25mg tab PEG SCH ×2 (09:32→20:52)
[2018-03-20] MEDS: levETIRAcetam 500mg/5ml Liquid GT SCH ×2 (09:32→20:49)
[2018-03-20] MEDS: Linezolid 600mg/300mL Premix IVPB SCH ×2 (09:32→22:04)
[2018-03-20] MEDS: Aspirin Baby 81mg NG SCH (09:32)
[2018-03-20] MEDS: Heparin 5000 units/ml inj SUBQ SCH ×2 (09:40→20:51)
[2018-03-20] MEDS: Micafungin 100 MG in NS 110 ML IVPB SCH (10:39)
--- NOTE | 2018-03-20 11:20 | Infectious Diseases Prog Note ---
Assessment/Plan Assessment/Plan A; Septic shock, resolved Candidal sepsis UTI with MRSA & Citrobacter Acute respiratory failure resolved Acute renal failure improving Chronic kidney disease Elevated transaminase Dementia Anemia Catheter tip culture VRE P; Continue Linezolid & Micafungin X 4 days repeat blood culture is negative Subjective ROS Limited/Unobtainable: Yes Constitutional: Reports: no symptoms Allergies: Coded Allergies: PENICILLINS (Unverified Allergy, Mild, 12/04/12) Objective Vital Signs Last 24 Hour Vital Signs Date Time Temp Pulse Resp B/P (MAP) Pulse Ox O2 Delivery O2 Flow Rate FiO2 03/20/18 09:32 76 153/59 03/20/18 08:00 97.9 76 21 153/59 (90) 98 03/20/18 05:49 75 161/64 03/20/18 05:00 97.7 75 20 161/64 (96) 98 03/20/18 04:00 97.3 73 18 134/45 (74) 98 03/20/18 04:00 77 03/20/18 00:00 97.7 86 19 155/97 (116) 99 03/20/18 00:00 77 03/19/18 21:24 73 150/68 03/19/18 21:00 Room Air 03/19/18 20:39 73 18 Room Air 21 03/19/18 20:00 74 03/19/18 20:00 98.3 76 18 150/68 (95) 99 03/19/18 16:00 98.2 73 19 149/66 (93) 98 03/19/18 16:00 72 03/19/18 13:23 73 153/63 03/19/18 13:23 153/63 03/19/18 12:00 71 03/19/18 12:00 97.3 73 18 134/45 (74) 98 Height (Feet): 5 Height (Inches): 10.00 Weight (Pounds): 167 HEENT: mucous membranes moist Respiratory/Chest: rhonchi - bilaterally Cardiovascular: normal rate, other - left arm PICC line Abdomen: soft, non tender, other - GT feeding, rectal tube Extremities: no edema Neurologic/Psychiatric: aphasia Microbiology Date/Time Source Procedure Growth Status 03/17/18 16:45 Wound Gram Stain - Final Resulted 03/17/18 16:45 Wound Culture - Preliminary Ling Albicans Yeast Species Usual Skin Fany Resulted Current Medications Medications (Trade) Dose Ordered Sig/Gelacio Route PRN Reason Start Time Stop Time Status Last Admin Dose Admin Acetaminophen (Tylenol) 650 mg Q6H PRN GT FEVER 03/15/18 17:30 04/07/18 17:29 Albuterol/ Ipratropium (Albuterol/ Ipratropium) 3 ml Q4H PRN HHN Shortness of Breath 03/19/18 16:45 03/24/18 16:44 Aspirin (ASA) 81 mg DAILY NG 03/16/18 09:00 04/08/18 08:59 03/20/18 09:32 Chlorhexidine Gluconate (Xiomara-Hex 2%) 1 applic DAILY@2000 TOPIC 03/15/18 20:00 04/08/18 22:29 03/19/18 21:24 Clonidine HCl (Catapres Tab) 0.1 mg Q6H PRN ORAL For High Blood Pressure 03/17/18 21:30 04/16/18 21:29 03/19/18 08:14 Dextrose (Dextrose 50%) 25 ml Q30M PRN IV Hypoglycemia 03/15/18 17:45 04/07/18 15:14 Dextrose (Dextrose 50%) 50 ml Q30M PRN IV Hypoglycemia 03/15/18 17:45 04/07/18 15:14 Diltiazem HCl (Cardizem) 60 mg EVERY 8 HOURS GT 03/17/18 22:00 04/16/18 10:14 03/20/18 05:49 Heparin Sodium (Porcine) (Heparin 5000 units/ml) 5,000 units EVERY 12 HOURS SUBQ 03/15/18 21:00 04/07/18 20:59 03/20/18 09:40 Insulin Aspart (NovoLOG) Q6HR SUBQ 03/15/18 18:00 04/11/18 11:59 03/20/18 05:53 Lansoprazole (Prevacid) 30 mg Q12HR GT 03/16/18 21:00 04/15/18 20:59 03/20/18 09:32 Levetiracetam (Keppra) 750 mg Q12HR GT 03/15/18 21:00 04/07/18 20:59 03/20/18 09:32 Linezolid 300 ml @ 300 mls/hr Q12HR IVPB 03/17/18 21:00 03/24/18 20:59 03/20/18 09:32 Metoprolol Tartrate (Lopressor) 25 mg Q12HR PEG 03/20/18 09:00 04/19/18 08:59 03/20/18 09:32 Micafungin Sodium 100 mg/Sodium Chloride 110 ml @ 110 mls/hr Q24H IVPB 03/16/18 10:00 03/22/18 09:59 03/20/18 10:39 Nitroglycerin (Ntg) 1 patch Q24H TDERMAL 03/16/18 13:00 04/10/18 12:59 03/19/18 13:23 Ondansetron HCl (Zofran) 4 mg Q6H PRN IVP Nausea & Vomiting 03/15/18 17:30 04/07/18 17:29 Quetiapine Fumarate (SEROquel) 12.5 mg Q4H PRN ORAL agitation 03/15/18 17:30 04/08/18 17:29 Wilder French MD Mar 20, 2018 11:20
[2018-03-20] MEDS: Nitroglycerin Patch 0.4mg TDERMAL SCH (12:33)
--- NOTE | 2018-03-20 13:49 | General Progress Note ---
Assessment/Plan Problem List: (1) Seizure disorder ICD Codes: G40.909 - Epilepsy, unspecified, not intractable, without status epilepticus SNOMED: 500239258 (2) Encephalopathy due to metabolic factor or toxin SNOMED: 667381169 Status: stable, progressing Assessment/Plan (1) Seizure disorder ICD Codes: G40.909 - Epilepsy, unspecified, not intractable, without status epilepticus SNOMED: 688054545 (2) Encephalopathy due to metabolic factor or toxin SNOMED: 344550205 Status: unchanged Assessment/Plan seroquel prn Subjective Date patient seen: Mar 20, 2018 Neurologic/Psychiatric: Reports: anxiety, depressed Allergies: Coded Allergies: PENICILLINS (Unverified Allergy, Mild, 12/04/12) Subjective the pt is the same confuse episodes of agitation Objective Last 24 Hour Vital Signs Date Time Temp Pulse Resp B/P (MAP) Pulse Ox O2 Delivery O2 Flow Rate FiO2 03/20/18 12:33 180/72 03/20/18 12:33 180/72 03/20/18 12:00 97.7 73 19 180/72 (108) 99 03/20/18 12:00 71 03/20/18 09:32 76 153/59 03/20/18 09:00 Room Air 03/20/18 08:00 75 03/20/18 08:00 97.9 76 21 153/59 (90) 98 03/20/18 05:49 75 161/64 03/20/18 05:00 97.7 75 20 161/64 (96) 98 03/20/18 04:00 97.3 73 18 134/45 (74) 98 03/20/18 04:00 77 03/20/18 00:00 97.7 86 19 155/97 (116) 99 03/20/18 00:00 77 03/19/18 21:24 73 150/68 03/19/18 21:00 Room Air 03/19/18 20:39 73 18 Room Air 21 03/19/18 20:00 74 03/19/18 20:00 98.3 76 18 150/68 (95) 99 03/19/18 16:00 98.2 73 19 149/66 (93) 98 03/19/18 16:00 72 Intake and Output 03/19/18 03/20/18 19:00 07:00 Intake Total 500 ml Output Total 800 ml 500 ml Balance -800 ml 0 ml Tube Feeding 500 ml Output Urine Total 800 ml 500 ml Height (Feet): 5 Height (Inches): 10.00 Weight (Pounds): 167 General Appearance: no apparent distress, alert, confused China Kidd MD Mar 20, 2018 13:49
--- NOTE | 2018-03-20 14:44 | Nephrology Progress Note ---
Assessment/Plan Problem List: (1) MARK (acute kidney injury) (2) CKD (chronic kidney disease) (3) Sepsis (4) Respiratory failure (5) Shock (6) Anemia Assessment HTN OOC acute on chronic renal failure: Oliguric ATN resolving Hypotension? due to sepsis: Shock Acute respiratory failure PEG DM Shock liver Sever HypoAlbuminemia Plan adjust BP meds now extubated 2D echo Ej Fx 55 % transfused 03/16 increase cardiazem- DC IV fluid monitor Vanco levels on GT feeding Albumin bolus as needed stool C dif DC Bicitra GT pulm toilet urine studies avoid Nephrotoxics Monitor renal parameters Dc planning PADMA: Cholelithiasis. 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, consistent with angiomyolipoma no [place] Subjective ROS Limited/Unobtainable: No Objective Objective Last 24 Hour Vital Signs Date Time Temp Pulse Resp B/P (MAP) Pulse Ox O2 Delivery O2 Flow Rate FiO2 03/20/18 14:28 71 180/72 03/20/18 12:33 180/72 03/20/18 12:33 180/72 03/20/18 12:00 97.7 73 19 180/72 (108) 99 03/20/18 12:00 71 03/20/18 09:32 76 153/59 03/20/18 09:00 Room Air 03/20/18 08:00 75 03/20/18 08:00 97.9 76 21 153/59 (90) 98 03/20/18 05:49 75 161/64 03/20/18 05:00 97.7 75 20 161/64 (96) 98 03/20/18 04:00 97.3 73 18 134/45 (74) 98 03/20/18 04:00 77 03/20/18 00:00 97.7 86 19 155/97 (116) 99 03/20/18 00:00 77 03/19/18 21:24 73 150/68 03/19/18 21:00 Room Air 03/19/18 20:39 73 18 Room Air 21 03/19/18 20:00 74 03/19/18 20:00 98.3 76 18 150/68 (95) 99 03/19/18 16:00 98.2 73 19 149/66 (93) 98 03/19/18 16:00 72 Intake and Output 03/19/18 03/20/18 19:00 07:00 Intake Total 500 ml Output Total 800 ml 500 ml Balance -800 ml 0 ml Tube Feeding 500 ml Output Urine Total 800 ml 500 ml Height (Feet): 5 Height (Inches): 10.00 Weight (Pounds): 167 General Appearance: no apparent distress, lethargic Cardiovascular: normal rate Respiratory/Chest: decreased breath sounds Abdomen: soft, other - diarrhea+ Objective no change Phil Ortiz MD Mar 20, 2018 14:44
--- NOTE | 2018-03-20 15:02 | General Surgery Progress Note ---
General Surgery-Progress Note Subjective Symptoms: improved, tolerating diet, BM Additional Comments improving overall. wound clean Objective Last 24 Hour Vital Signs Date Time Temp Pulse Resp B/P (MAP) Pulse Ox O2 Delivery O2 Flow Rate FiO2 03/20/18 14:28 71 180/72 03/20/18 12:33 180/72 03/20/18 12:33 180/72 03/20/18 12:00 97.7 73 19 180/72 (108) 99 03/20/18 12:00 71 03/20/18 09:32 76 153/59 03/20/18 09:00 Room Air 03/20/18 08:00 75 03/20/18 08:00 97.9 76 21 153/59 (90) 98 03/20/18 05:49 75 161/64 03/20/18 05:00 97.7 75 20 161/64 (96) 98 03/20/18 04:00 97.3 73 18 134/45 (74) 98 03/20/18 04:00 77 03/20/18 00:00 97.7 86 19 155/97 (116) 99 03/20/18 00:00 77 03/19/18 21:24 73 150/68 03/19/18 21:00 Room Air 03/19/18 20:39 73 18 Room Air 21 03/19/18 20:00 74 03/19/18 20:00 98.3 76 18 150/68 (95) 99 03/19/18 16:00 98.2 73 19 149/66 (93) 98 03/19/18 16:00 72 I&O Intake and Output 03/19/18 03/20/18 19:00 07:00 Intake Total 500 ml Output Total 800 ml 500 ml Balance -800 ml 0 ml Tube Feeding 500 ml Output Urine Total 800 ml 500 ml Dressing: saturated Wound: clean, intact Drains: other Cardiovascular: RSR Respiratory: clear Abdomen: soft, flat, non-tender, present bowel sounds Extremities: no cyanosis Plan Problems: (1) Abnormal LFTs Assessment & Plan: likely shock liver from overt sepsis. labs improving abdominal ultrasound reviewed recovering / resolved (2) Decubitus ulcer of sacral region, unstageable Assessment & Plan: full thickness pressure injury (L)4cm x(W)3.4cm with approx 80% yellow slough ,otherwise pink ,(+) maceration.Hyperpigmentation periwound bordered by darker skin tone. DTPI noted to L heel oozing small amt serosanguineous exudate (L)6cm x (W)9cm.Wound bed fluctuant.DTPI noted to medial R heel (L)2cm x (W)2.5cm dry area noted along border but wound is fluctuant centrally. present upon admission. will be cared for during hospital stay will plan for debridement once stable unlikely etiology of leukocytosis wound improving since admission wound cleaned at bedside and non excisional debridement to clean wound performed. fortunately wound not very deep if only 1-2mm. cont with care plan Tx.Plan: Cleanse sacral wound with Saline..Apply Cavilon to borders .Cover with Optifoam drsg Daily and prn. Apply Cavilon wipe to R and L heels. Cover with Biatain drsg.Change prn. Reposition at least every 2hours or as tolerated. Off-load heels with pillow. (3) Severe sepsis Assessment & Plan: improving leukocytosis resolved labs noted cont current plan Jean Marie Park Mar 20, 2018 15:02
--- NOTE | 2018-03-20 15:02 | Pulmonology Progress Note ---
Assessment/Plan Problems: (1) Severe sepsis (2) UTI (urinary tract infection) (3) Respiratory failure (4) Metabolic acidosis (5) Decubitus ulcer of sacral region, unstageable (6) Abnormal LFTs (7) Sepsis (8) Seizure disorder (9) CKD (chronic kidney disease) (10) Encephalopathy due to metabolic factor or toxin (11) Shock Assessment/Plan ASSESSMENT: * SIRS/SEPSIS - RESOLVED * Shock, likely septic - RESOLVED * VDRF, extubated 03/13 * MSOF - BETTER * MARK on CKD * Abnormal LFT's - IMPROVED * NSTEMI, likely demand ischemia * Mild PVC on CXR & elevated BNP but clinically appears dry * ? ADHF * Sz DO * NHR * Bedbound @ baseline * Anemia * S/P GT PLAN: * Optimize pulmonary hygiene/mobilize as tolerated * PRN O2 * PRN HHN's * Monitor volumes and renal function * F/U renal recs, replete electrolytes and free water * F/U cards recs * Zyvox per ID * GTF's * Continue HEP SQ * Continue AED's * FC Subjective Allergies: Coded Allergies: PENICILLINS (Unverified Allergy, Mild, 12/04/12) Subjective APOORVA, AFVSS, on RA No distress, chet TF's Objective Last 24 Hour Vital Signs Date Time Temp Pulse Resp B/P (MAP) Pulse Ox O2 Delivery O2 Flow Rate FiO2 03/20/18 14:28 71 180/72 03/20/18 12:33 180/72 03/20/18 12:33 180/72 03/20/18 12:00 97.7 73 19 180/72 (108) 99 03/20/18 12:00 71 03/20/18 09:32 76 153/59 03/20/18 09:00 Room Air 03/20/18 08:00 75 03/20/18 08:00 97.9 76 21 153/59 (90) 98 03/20/18 05:49 75 161/64 03/20/18 05:00 97.7 75 20 161/64 (96) 98 03/20/18 04:00 97.3 73 18 134/45 (74) 98 03/20/18 04:00 77 03/20/18 00:00 97.7 86 19 155/97 (116) 99 03/20/18 00:00 77 03/19/18 21:24 73 150/68 03/19/18 21:00 Room Air 03/19/18 20:39 73 18 Room Air 21 03/19/18 20:00 74 03/19/18 20:00 98.3 76 18 150/68 (95) 99 03/19/18 16:00 98.2 73 19 149/66 (93) 98 03/19/18 16:00 72 Intake and Output 03/19/18 03/20/18 19:00 07:00 Intake Total 500 ml Output Total 800 ml 500 ml Balance -800 ml 0 ml Tube Feeding 500 ml Output Urine Total 800 ml 500 ml General Appearance: cachetic HEENT: normocephalic, atraumatic, anicteric, mucous membranes moist Respiratory/Chest: chest wall non-tender, lungs clear, normal breath sounds, no respiratory distress Cardiovascular: normal peripheral pulses, normal rate, regular rhythm, other Abdomen: normal bowel sounds, soft, non tender, no organomegaly, non distended , no mass, other - GT Extremities: no cyanosis, no clubbing, no edema Microbiology Date/Time Source Procedure Growth Status 03/17/18 16:45 Wound Gram Stain - Final Resulted 03/17/18 16:45 Wound Culture - Preliminary Ling Albicans Yeast Species Usual Skin Fany Resulted Current Medications Medications (Trade) Dose Ordered Sig/Gelacio Route PRN Reason Start Time Stop Time Status Last Admin Dose Admin Acetaminophen (Tylenol) 650 mg Q6H PRN GT FEVER 03/15/18 17:30 04/07/18 17:29 Albuterol/ Ipratropium (Albuterol/ Ipratropium) 3 ml Q4H PRN HHN Shortness of Breath 03/19/18 16:45 03/24/18 16:44 Aspirin (ASA) 81 mg DAILY NG 03/16/18 09:00 04/08/18 08:59 03/20/18 09:32 Chlorhexidine Gluconate (Xiomara-Hex 2%) 1 applic DAILY@1999 TOPIC 03/15/18 20:00 04/08/18 22:29 03/19/18 21:24 Clonidine HCl (Catapres Tab) 0.1 mg Q6H PRN ORAL For High Blood Pressure 03/17/18 21:30 04/16/18 21:29 03/20/18 12:33 Dextrose (Dextrose 50%) 25 ml Q30M PRN IV Hypoglycemia 03/15/18 17:45 04/07/18 15:14 Dextrose (Dextrose 50%) 50 ml Q30M PRN IV Hypoglycemia 03/15/18 17:45 04/07/18 15:14 Diltiazem HCl (Cardizem) 90 mg EVERY 8 HOURS GT 03/20/18 22:00 04/16/18 10:14 UNV Heparin Sodium (Porcine) (Heparin 5000 units/ml) 5,000 units EVERY 12 HOURS SUBQ 03/15/18 21:00 04/07/18 20:59 03/20/18 09:40 Hydralazine HCl (Apresoline) 25 mg Q8HR ORAL 03/20/18 14:45 04/19/18 14:44 UNV Insulin Aspart (NovoLOG) Q6HR SUBQ 03/15/18 18:00 04/11/18 11:59 03/20/18 13:11 Lansoprazole (Prevacid) 30 mg Q12HR GT 03/16/18 21:00 04/15/18 20:59 03/20/18 09:32 Levetiracetam (Keppra) 750 mg Q12HR GT 03/15/18 21:00 04/07/18 20:59 03/20/18 09:32 Linezolid 300 ml @ 300 mls/hr Q12HR IVPB 03/17/18 21:00 03/24/18 20:59 03/20/18 09:32 Metoprolol Tartrate (Lopressor) 25 mg Q12HR PEG 03/20/18 09:00 04/19/18 08:59 03/20/18 09:32 Micafungin Sodium 100 mg/Sodium Chloride 110 ml @ 110 mls/hr Q24H IVPB 03/16/18 10:00 03/22/18 09:59 03/20/18 10:39 Nitroglycerin (Ntg) 1 patch Q24H TDERMAL 03/16/18 13:00 04/10/18 12:59 03/20/18 12:33 Ondansetron HCl (Zofran) 4 mg Q6H PRN IVP Nausea & Vomiting 03/15/18 17:30 04/07/18 17:29 Quetiapine Fumarate (SEROquel) 12.5 mg Q4H PRN ORAL agitation 03/15/18 17:30 04/08/18 17:29 Javon Gan MD Mar 20, 2018 15:02
[2018-03-20] MEDS ORDERED: HydrALAZINE 25mg tab ORAL SCH (15:30)
[2018-03-20] MEDS: Dyna-Hex 2% Top Sol 2oz TOPIC SCH (20:49)
--- NOTE | 2018-03-20 21:13 | General Progress Note ---
Assessment/Plan Problem List: (1) CKD (chronic kidney disease) ICD Codes: N18.9 - Chronic kidney disease, unspecified SNOMED: 662650243 (2) MARK (acute kidney injury) ICD Codes: N17.9 - Acute kidney failure, unspecified SNOMED: 43022103 (3) Sepsis ICD Codes: A41.9 - Sepsis, unspecified organism SNOMED: 55577307 (4) Abnormal LFTs ICD Codes: R94.5 - Abnormal results of liver function studies SNOMED: 102979280 (5) Decubitus ulcer of sacral region, unstageable ICD Codes: L89.150 - Pressure ulcer of sacral region, unstageable SNOMED: 062201028, 475016272 (6) Hyperglycemia ICD Codes: R73.9 - Hyperglycemia, unspecified; N18.9 - Chronic kidney disease, unspecified SNOMED: 77275485 (7) Metabolic acidosis ICD Codes: E87.2 - Acidosis; N18.9 - Chronic kidney disease, unspecified SNOMED: 57308591 (8) Renal failure (ARF), acute on chronic ICD Codes: N17.9 - Acute kidney failure, unspecified; N18.9 - Chronic kidney disease, unspecified SNOMED: 471300070 Qualifiers: Qualified Codes: N17.9 - Acute kidney failure, unspecified; N18.4 - Chronic kidney disease, stage 4 (severe) (9) Anemia ICD Codes: D64.9 - Anemia, unspecified SNOMED: 539597860 Qualifiers: Qualified Codes: D64.9 - Anemia, unspecified (10) Respiratory failure ICD Codes: J96.90 - Respiratory failure, unspecified, unspecified whether with hypoxia or hypercapnia SNOMED: 169566979 Qualifiers: Qualified Codes: J96.00 - Acute respiratory failure, unspecified whether with hypoxia or hypercapnia (11) UTI (urinary tract infection) ICD Codes: N39.0 - Urinary tract infection, site not specified SNOMED: 06696104 Qualifiers: Qualified Codes: T83.511A - Infection and inflammatory reaction due to indwelling urethral catheter, initial encounter; N39.0 - Urinary tract infection , site not specified (12) NSTEMI (non-ST elevated myocardial infarction) ICD Codes: I21.4 - Non-ST elevation (NSTEMI) myocardial infarction SNOMED: 751786161 (13) Severe sepsis ICD Codes: A41.9 - Sepsis, unspecified organism; R65.20 - Severe sepsis without septic shock SNOMED: 12524018 (14) Encephalopathy due to metabolic factor or toxin SNOMED: 606076872 Status: unchanged Assessment/Plan resp insuff cri diarrhea has rectal tube nathaly eval requires high level of care lethargic reviewed chart and labs sepsis .abx per id pna Subjective Gastrointestinal/Abdominal: Reports: diarrhea Allergies: Coded Allergies: PENICILLINS (Unverified Allergy, Mild, 12/04/12) Objective Last 24 Hour Vital Signs Date Time Temp Pulse Resp B/P (MAP) Pulse Ox O2 Delivery O2 Flow Rate FiO2 03/20/18 20:52 78 189/74 03/20/18 16:00 97.9 75 20 174/70 (104) 100 03/20/18 16:00 74 03/20/18 15:57 174/70 03/20/18 14:28 71 180/72 03/20/18 12:33 180/72 03/20/18 12:33 180/72 03/20/18 12:00 97.7 73 19 180/72 (108) 99 03/20/18 12:00 71 03/20/18 09:32 76 153/59 03/20/18 09:00 Room Air 03/20/18 08:00 75 03/20/18 08:00 97.9 76 21 153/59 (90) 98 03/20/18 05:49 75 161/64 03/20/18 05:00 97.7 75 20 161/64 (96) 98 03/20/18 04:00 97.3 73 18 134/45 (74) 98 03/20/18 04:00 77 03/20/18 00:00 97.7 86 19 155/97 (116) 99 03/20/18 00:00 77 03/19/18 21:24 73 150/68 Intake and Output 03/19/18 03/20/18 18:59 06:59 Intake Total 500 ml Output Total 800 ml 500 ml Balance -800 ml 0 ml Tube Feeding 500 ml Output Urine Total 800 ml 500 ml Height (Feet): 5 Height (Inches): 10.00 Weight (Pounds): 167 General Appearance: lethargic, confused Krzysztof Schneider MD Mar 20, 2018 21:13
[2018-03-20] MEDS ORDERED: dilTIAZem HCl 90mg tab GT SCH (22:00)
[2018-03-20] MEDS: HydrALAZINE 25mg tab ORAL SCH (22:03)
--- NOTE | 2018-03-20 23:53 | Cardiology Progress Note ---
Assessment/Plan Assessment/Plan 1. Septic shock, resolved, 2D echocardiography with normal LV systolic function with normal intracardiac filling pressures. 2. Paroxysmal atrial fibrillation with rapid ventricular response, converted to SR, start amiodarone infusion at 1mcg/min, hold cardizem and metoprolol. 3. History of hypertension, start Nifedipine 30mg daily. 4. History of diabetes mellitus. 5. NSTEMI type II, conservative management. Subjective Subjective Sinus rhythm at rate of 72. Paroxysmal atrial fibrillation at 130. Objective Last 24 Hour Vital Signs Date Time Temp Pulse Resp B/P (MAP) Pulse Ox O2 Delivery O2 Flow Rate FiO2 03/20/18 22:04 78 189/77 03/20/18 22:03 189/74 03/20/18 22:03 189/74 03/20/18 21:30 72 18 Room Air 21 03/20/18 21:00 Room Air 03/20/18 20:52 78 189/74 03/20/18 20:00 97.9 78 19 189/74 (112) 98 03/20/18 20:00 76 03/20/18 16:00 97.9 75 20 174/70 (104) 100 03/20/18 16:00 74 03/20/18 15:57 174/70 03/20/18 14:28 71 180/72 03/20/18 12:33 180/72 03/20/18 12:33 180/72 03/20/18 12:00 97.7 73 19 180/72 (108) 99 03/20/18 12:00 71 03/20/18 09:32 76 153/59 03/20/18 09:00 Room Air 03/20/18 08:00 75 03/20/18 08:00 97.9 76 21 153/59 (90) 98 03/20/18 05:49 75 161/64 03/20/18 05:00 97.7 75 20 161/64 (96) 98 03/20/18 04:00 97.3 73 18 134/45 (74) 98 03/20/18 04:00 77 03/20/18 00:00 97.7 86 19 155/97 (116) 99 03/20/18 00:00 77 Intake and Output 03/19/18 03/20/18 19:00 07:00 Intake Total 500 ml Output Total 800 ml 500 ml Balance -800 ml 0 ml Tube Feeding 500 ml Output Urine Total 800 ml 500 ml 2D Echo: LVEF 55%, Mild LVH, Grade I LVDD, RVSP 20 mmHg Objective HEENT: Atraumatic and normocephalic. Anicteric. Pupils are equal, round, and reactive to light and accommodation. Extraocular muscles intact. NECK: JVP less than 5 cm. No carotid bruits. Carotid upstrokes 2+ bilaterally. CARDIOVASCULAR SYSTEM: Normal S1, S2. Regular rhythm. No murmurs, gallops, or rubs. LUNGS: Diminished breath sounds in both bases. ABDOMEN: Soft, nontender, and nondistended. No hepatosplenomegaly. Positive G-tube in place. EXTREMITIES: No evidence of edema, clubbing, or cyanosis. Everett Tomas MD Mar 20, 2018 23:53
[2018-03-21] VITALS: BP 118/60
[2018-03-21] MEDS ORDERED: Amiodarone 900 MG in D5W 500ml 482 ML IV SCH (01:00)
[2018-03-21] MEDS ORDERED: AMIODARONE 150 MG/100 ML IV ONE (02:10)
[2018-03-21] MEDS ORDERED: AMIODARONE IVP SCH (02:45)
[2018-03-21] MEDS ORDERED: D5W IVP SCH (02:45)
[2018-03-21 04:00] VITALS: BP 156/69
[2018-03-21] MEDS: HydrALAZINE 25mg tab ORAL SCH ×2 (05:50→13:51)
[2018-03-21] MEDS: NovoLOG Insulin Flexpen SUBQ SCH ×3 (05:54→18:55)
--- NOTE | 2018-03-21 07:04 | General Progress Note ---
Assessment/Plan Assessment/Plan # Anemia of chronic disease -- baseline appears to be 11-12 reviewed labs from 2012 --> at this time decreased, anemia panel has been reviewed and c/w acd --> transfuse as needed, hgb goal >7 --> no evidence of hemolysis noted --> Blood tx: 03/10 --> no evidence of anita bleeding --> monitor coagulopathy on prn basis --> no e/o rudolph # Elevated PTT, coagulopathy --> recheck PTT, if still elevated, may be a factor deficiency --> unlikely this will cause massive blood loss # Leukocytosis likely related to septic shock --> on abx and ivf --> appreciate ID recs and workup --> monitor for improvement --> cultures per ID # Thrombocytopenia likely related to infection, appears baseline 100-150k --> imaging has been reviewed --> medications have been reviewed --> hepatitis panel is negative, hiv negative # Abnormal LFTs --> Currently has normalized. --> likely shock liver from overt sepsis --> trend labs # Decubitus ulcer of sacral region, unstageable, 5cm x 4cm unstagable sacral decubitus ulcer, no drainage, mild edema/erythema, soft, no odor --> will be cared for during hospital stay --> appreciate surg recs, on case # Severe sepsis --> on abx as per ID, appreciate their recs # Respiratory failure. extubated, on nc --> as per pulm Greatly appreciate consultation! Subjective ROS Limited/Unobtainable: Yes Allergies: Coded Allergies: PENICILLINS (Unverified Allergy, Mild, 12/04/12) Subjective Responsive to deep pain, breathing has improved. remains on abx. Objective Last 24 Hour Vital Signs Date Time Temp Pulse Resp B/P (MAP) Pulse Ox O2 Delivery O2 Flow Rate FiO2 03/21/18 05:50 156/69 03/21/18 04:00 70 03/21/18 04:00 97.3 67 16 156/69 (98) 99 03/21/18 01:32 57 118/60 03/21/18 00:00 57 03/21/18 00:00 97.2 57 16 118/60 (79) 98 03/20/18 22:04 78 189/77 03/20/18 22:03 189/74 03/20/18 22:03 189/74 03/20/18 21:30 72 18 Room Air 21 03/20/18 21:00 Room Air 03/20/18 20:52 78 189/74 03/20/18 20:00 97.9 78 19 189/74 (112) 98 03/20/18 20:00 76 03/20/18 16:00 97.9 75 20 174/70 (104) 100 03/20/18 16:00 74 03/20/18 15:57 174/70 03/20/18 14:28 71 180/72 03/20/18 12:33 180/72 03/20/18 12:33 180/72 03/20/18 12:00 97.7 73 19 180/72 (108) 99 03/20/18 12:00 71 03/20/18 09:32 76 153/59 03/20/18 09:00 Room Air 03/20/18 08:00 75 03/20/18 08:00 97.9 76 21 153/59 (90) 98 Intake and Output 03/20/18 03/21/18 19:00 07:00 Intake Total 40 ml 940 ml Output Total 1100 ml 1900 ml Balance -1060 ml -960 ml Intake Free Water 100 ml IV Total 400 ml Tube Feeding 40 ml 440 ml Output Urine Total 1100 ml 1300 ml Stool Total 600 ml Height (Feet): 5 Height (Inches): 10.00 Weight (Pounds): 181 Objective General Appearance: nonverbal, responsive to deep pain EENT: TMs normal, neck is supple Cardiovascular: normal rate and rhythm Respiratory/Chest: crackle are noted Extremities: non-tender Abd: ++ peg getting gtube feeds Edema: no cce : ++shaver Back: ++ sacral decub unchanged Alekasndr Kern MD Mar 21, 2018 07:04
[2018-03-21 08:00] VITALS: BP 179/75
[2018-03-21] MEDS ORDERED: AMIODARONE IV SCH (08:30)
[2018-03-21] MEDS ORDERED: D5W IV SCH (08:30)
[2018-03-21] MEDS ORDERED: Amiodarone 900mg in D5W 500ml IV SCH (08:30)
[2018-03-21] MEDS: levETIRAcetam 500mg/5ml Liquid GT SCH ×2 (09:08→21:00)
[2018-03-21] MEDS: Linezolid 600mg/300mL Premix IVPB SCH ×2 (09:09→21:00)
[2018-03-21] MEDS: Aspirin Baby 81mg NG SCH (09:09)
[2018-03-21] MEDS: Heparin 5000 units/ml inj SUBQ SCH ×2 (09:26→21:00)
[2018-03-21] MEDS: Micafungin 100 MG in NS 110 ML IVPB SCH (10:33)
[2018-03-21 12:00] VITALS: BP 144/62
--- NOTE | 2018-03-21 12:41 | Nephrology Progress Note ---
Assessment/Plan Problem List: (1) MARK (acute kidney injury) (2) CKD (chronic kidney disease) (3) Sepsis (4) Respiratory failure (5) Shock (6) Anemia Assessment HTN OOC acute on chronic renal failure: Oliguric ATN resolving Hypotension? due to sepsis: Shock Acute respiratory failure PEG DM Shock liver Sever HypoAlbuminemia Plan adjust BP meds now extubated 2D echo Ej Fx 55 % transfused 03/16 increase cardiazem- DC IV fluid monitor Vanco levels on GT feeding Albumin bolus as needed stool C dif DC Bicitra GT pulm toilet urine studies avoid Nephrotoxics Monitor renal parameters Dc planning PADMA: Cholelithiasis. 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, consistent with angiomyolipoma no [place] Subjective ROS Limited/Unobtainable: No Constitutional: Reports: malaise Objective Objective Last 24 Hour Vital Signs Date Time Temp Pulse Resp B/P (MAP) Pulse Ox O2 Delivery O2 Flow Rate FiO2 03/21/18 12:00 97.9 83 21 144/62 (89) 98 03/21/18 09:09 70 179/75 03/21/18 09:00 Room Air 03/21/18 08:14 70 17 Room Air 21 03/21/18 08:00 73 03/21/18 08:00 98.3 75 20 179/75 (109) 99 03/21/18 05:50 156/69 03/21/18 04:00 70 03/21/18 04:00 97.3 67 16 156/69 (98) 99 03/21/18 01:32 57 118/60 03/21/18 00:00 57 03/21/18 00:00 97.2 57 16 118/60 (79) 98 03/20/18 22:04 78 189/77 03/20/18 22:03 189/74 03/20/18 22:03 189/74 03/20/18 21:30 72 18 Room Air 21 03/20/18 21:00 Room Air 03/20/18 20:52 78 189/74 03/20/18 20:00 97.9 78 19 189/74 (112) 98 03/20/18 20:00 76 03/20/18 16:00 97.9 75 20 174/70 (104) 100 03/20/18 16:00 74 03/20/18 15:57 174/70 03/20/18 14:28 71 180/72 Intake and Output 03/20/18 03/21/18 19:00 07:00 Intake Total 40 ml 940 ml Output Total 1100 ml 1900 ml Balance -1060 ml -960 ml Intake Free Water 100 ml IV Total 400 ml Tube Feeding 40 ml 440 ml Output Urine Total 1100 ml 1300 ml Stool Total 600 ml Height (Feet): 5 Height (Inches): 10.00 Weight (Pounds): 181 General Appearance: no apparent distress Respiratory/Chest: decreased breath sounds Abdomen: distended Objective no change Phil Ortiz MD Mar 21, 2018 12:41
[2018-03-21] MEDS: Nitroglycerin Patch 0.4mg TDERMAL SCH (12:48)
--- NOTE | 2018-03-21 13:19 | Pulmonology Progress Note ---
Assessment/Plan Problems: (1) Severe sepsis (2) UTI (urinary tract infection) (3) Respiratory failure (4) Metabolic acidosis (5) Decubitus ulcer of sacral region, unstageable (6) Abnormal LFTs (7) Sepsis (8) Seizure disorder (9) CKD (chronic kidney disease) (10) Encephalopathy due to metabolic factor or toxin (11) Shock Assessment/Plan ASSESSMENT: * SIRS/SEPSIS - RESOLVED * Shock, likely septic - RESOLVED * VDRF, extubated 03/13 * MSOF - BETTER * MARK on CKD * Abnormal LFT's - IMPROVED * NSTEMI, likely demand ischemia * Mild PVC on CXR & elevated BNP but clinically appears dry * ? ADHF * Sz DO * NHR * Bedbound @ baseline * Anemia * S/P GT PLAN: * Optimize pulmonary hygiene/mobilize as tolerated * PRN O2 * PRN HHN's * Monitor volumes and renal function * F/U renal recs * F/U cards recs * Zyvox per ID * GTF's * Continue HEP SQ * Continue AED's * FC Subjective Allergies: Coded Allergies: PENICILLINS (Unverified Allergy, Mild, 12/04/12) Subjective APOORVA, AFVSS, on RA No distress, chet TF's Objective Last 24 Hour Vital Signs Date Time Temp Pulse Resp B/P (MAP) Pulse Ox O2 Delivery O2 Flow Rate FiO2 03/21/18 12:48 144/62 03/21/18 12:00 97.9 83 21 144/62 (89) 98 03/21/18 09:09 70 179/75 03/21/18 09:00 Room Air 03/21/18 08:14 70 17 Room Air 21 03/21/18 08:00 73 03/21/18 08:00 98.3 75 20 179/75 (109) 99 03/21/18 05:50 156/69 03/21/18 04:00 70 03/21/18 04:00 97.3 67 16 156/69 (98) 99 03/21/18 01:32 57 118/60 03/21/18 00:00 57 03/21/18 00:00 97.2 57 16 118/60 (79) 98 03/20/18 22:04 78 189/77 03/20/18 22:03 189/74 11/6/18 22:03 189/74 03/20/18 21:30 72 18 Room Air 21 03/20/18 21:00 Room Air 03/20/18 20:52 78 189/74 03/20/18 20:00 97.9 78 19 189/74 (112) 98 03/20/18 20:00 76 03/20/18 16:00 97.9 75 20 174/70 (104) 100 03/20/18 16:00 74 03/20/18 15:57 174/70 03/20/18 14:28 71 180/72 Intake and Output 03/20/18 03/21/18 19:00 07:00 Intake Total 40 ml 940 ml Output Total 1100 ml 1900 ml Balance -1060 ml -960 ml Intake Free Water 100 ml IV Total 400 ml Tube Feeding 40 ml 440 ml Output Urine Total 1100 ml 1300 ml Stool Total 600 ml General Appearance: cachetic HEENT: normocephalic, atraumatic, anicteric, mucous membranes moist Respiratory/Chest: chest wall non-tender, lungs clear, normal breath sounds, no respiratory distress Cardiovascular: normal peripheral pulses, normal rate, regular rhythm Abdomen: normal bowel sounds, soft, non tender, no organomegaly, non distended , no mass, other - GT Extremities: no cyanosis, no clubbing, no edema Current Medications Medications (Trade) Dose Ordered Sig/Gelacio Route PRN Reason Start Time Stop Time Status Last Admin Dose Admin Acetaminophen (Tylenol) 650 mg Q6H PRN GT FEVER 03/15/18 17:30 04/07/18 17:29 03/20/18 20:53 Albuterol/ Ipratropium (Albuterol/ Ipratropium) 3 ml Q4H PRN HHN Shortness of Breath 03/19/18 16:45 03/24/18 16:44 Amiodarone HCl 600 mg/Dextrose 379 ml @ 33.33 mls/ hr Q12H IV 03/21/18 08:30 03/21/18 19:53 03/21/18 08:33 Aspirin (ASA) 81 mg DAILY NG 03/16/18 09:00 04/08/18 08:59 03/21/18 09:09 Chlorhexidine Gluconate (Xiomara-Hex 2%) 1 applic DAILY@2000 TOPIC 03/15/18 20:00 04/08/18 22:29 03/20/18 20:49 Clonidine HCl (Catapres Tab) 0.1 mg Q6H PRN ORAL For High Blood Pressure 03/17/18 21:30 04/16/18 21:29 03/20/18 22:03 Dextrose (Dextrose 50%) 25 ml Q30M PRN IV Hypoglycemia 03/15/18 17:45 04/07/18 15:14 Dextrose (Dextrose 50%) 50 ml Q30M PRN IV Hypoglycemia 03/15/18 17:45 04/07/18 15:14 Heparin Sodium (Porcine) (Heparin 5000 units/ml) 5,000 units EVERY 12 HOURS SUBQ 03/15/18 21:00 04/07/18 20:59 03/21/18 09:26 Hydralazine HCl (Apresoline) 25 mg Q8HR ORAL 03/20/18 22:00 04/19/18 21:59 03/21/18 05:50 Insulin Aspart (NovoLOG) Q6HR SUBQ 03/15/18 18:00 04/11/18 11:59 03/21/18 11:38 Lansoprazole (Prevacid) 30 mg Q12HR GT 03/16/18 21:00 04/15/18 20:59 03/21/18 09:09 Levetiracetam (Keppra) 750 mg Q12HR GT 03/15/18 21:00 04/07/18 20:59 03/21/18 09:08 Linezolid 300 ml @ 300 mls/hr Q12HR IVPB 03/17/18 21:00 03/24/18 20:59 03/21/18 09:09 Micafungin Sodium 100 mg/Sodium Chloride 110 ml @ 110 mls/hr Q24H IVPB 03/16/18 10:00 03/24/18 09:59 03/21/18 10:33 Nifedipine (Procardia XL) 30 mg DAILY ORAL 03/21/18 09:00 04/20/18 08:59 03/21/18 09:09 Nitroglycerin (Ntg) 1 patch Q24H TDERMAL 03/16/18 13:00 04/10/18 12:59 03/21/18 12:48 Ondansetron HCl (Zofran) 4 mg Q6H PRN IVP Nausea & Vomiting 03/15/18 17:30 04/07/18 17:29 Quetiapine Fumarate (SEROquel) 12.5 mg Q4H PRN ORAL agitation 03/15/18 17:30 04/08/18 17:29 03/21/18 10:33 Javon Gan MD Mar 21, 2018 13:19
--- NOTE | 2018-03-21 15:20 | General Progress Note ---
Assessment/Plan Problem List: (1) Seizure disorder ICD Codes: G40.909 - Epilepsy, unspecified, not intractable, without status epilepticus SNOMED: 244860741 (2) Encephalopathy due to metabolic factor or toxin SNOMED: 259388720 Status: unchanged Assessment/Plan (1) Seizure disorder ICD Codes: G40.909 - Epilepsy, unspecified, not intractable, without status epilepticus SNOMED: 195207639 (2) Encephalopathy due to metabolic factor or toxin SNOMED: 451777449 Status: unchanged Assessment/Plan seroquel prn Subjective Date patient seen: Mar 21, 2018 Neurologic/Psychiatric: Reports: anxiety, depressed Allergies: Coded Allergies: PENICILLINS (Unverified Allergy, Mild, 12/04/12) Subjective the pt is the same confuse episodes of agitation the pt was yelling more today Objective Last 24 Hour Vital Signs Date Time Temp Pulse Resp B/P (MAP) Pulse Ox O2 Delivery O2 Flow Rate FiO2 03/21/18 13:51 179/69 03/21/18 12:48 144/62 03/21/18 12:00 97.9 83 21 144/62 (89) 98 03/21/18 12:00 79 03/21/18 09:09 70 179/75 03/21/18 09:00 Room Air 03/21/18 08:14 70 17 Room Air 21 03/21/18 08:00 73 03/21/18 08:00 98.3 75 20 179/75 (109) 99 03/21/18 05:50 156/69 03/21/18 04:00 70 03/21/18 04:00 97.3 67 16 156/69 (98) 99 03/21/18 01:32 57 118/60 03/21/18 00:00 57 03/21/18 00:00 97.2 57 16 118/60 (79) 98 03/20/18 22:04 78 189/77 03/20/18 22:03 189/74 03/20/18 22:03 189/74 03/20/18 21:30 72 18 Room Air 21 03/20/18 21:00 Room Air 03/20/18 20:52 78 189/74 03/20/18 20:00 97.9 78 19 189/74 (112) 98 03/20/18 20:00 76 03/20/18 16:00 97.9 75 20 174/70 (104) 100 03/20/18 16:00 74 03/20/18 15:57 174/70 Intake and Output 03/20/18 03/21/18 19:00 07:00 Intake Total 40 ml 940 ml Output Total 1100 ml 1900 ml Balance -1060 ml -960 ml Intake Free Water 100 ml IV Total 400 ml Tube Feeding 40 ml 440 ml Output Urine Total 1100 ml 1300 ml Stool Total 600 ml Height (Feet): 5 Height (Inches): 10.00 Weight (Pounds): 181 General Appearance: alert, confused, agitated China Kidd MD Mar 21, 2018 15:20
[2018-03-21 16:00] VITALS: BP 175/70
--- NOTE | 2018-03-21 16:31 | Infectious Diseases Prog Note ---
Assessment/Plan Assessment/Plan A; Septic shock, resolved Candidal sepsis UTI with MRSA & Citrobacter Acute respiratory failure resolved Acute renal failure improving Chronic kidney disease Elevated transaminase Dementia Anemia Catheter tip culture VRE P; Continue Linezolid & Micafungin X 3 days repeat blood culture is negative Subjective ROS Limited/Unobtainable: Yes Constitutional: Reports: no symptoms Allergies: Coded Allergies: PENICILLINS (Unverified Allergy, Mild, 12/04/12) Objective Vital Signs Last 24 Hour Vital Signs Date Time Temp Pulse Resp B/P (MAP) Pulse Ox O2 Delivery O2 Flow Rate FiO2 03/21/18 16:00 78 03/21/18 13:51 179/69 03/21/18 12:48 144/62 03/21/18 12:00 97.9 83 21 144/62 (89) 98 03/21/18 12:00 79 03/21/18 09:09 70 179/75 03/21/18 09:00 Room Air 03/21/18 08:14 70 17 Room Air 21 03/21/18 08:00 73 03/21/18 08:00 98.3 75 20 179/75 (109) 99 03/21/18 05:50 156/69 03/21/18 04:00 70 03/21/18 04:00 97.3 67 16 156/69 (98) 99 03/21/18 01:32 57 118/60 03/21/18 00:00 57 03/21/18 00:00 97.2 57 16 118/60 (79) 98 03/20/18 22:04 78 189/77 03/20/18 22:03 189/74 03/20/18 22:03 189/74 03/20/18 21:30 72 18 Room Air 21 03/20/18 21:00 Room Air 03/20/18 20:52 78 189/74 03/20/18 20:00 97.9 78 19 189/74 (112) 98 03/20/18 20:00 76 Height (Feet): 5 Height (Inches): 10.00 Weight (Pounds): 181 General Appearance: no acute distress HEENT: mucous membranes moist Respiratory/Chest: lungs clear Cardiovascular: normal rate, other - PICC line Abdomen: soft, non tender, other - GT & rectal tube Extremities: no edema Neurologic/Psychiatric: aphasia Current Medications Medications (Trade) Dose Ordered Sig/Gelacio Route PRN Reason Start Time Stop Time Status Last Admin Dose Admin Acetaminophen (Tylenol) 650 mg Q6H PRN GT FEVER 03/15/18 17:30 04/07/18 17:29 03/20/18 20:53 Albuterol/ Ipratropium (Albuterol/ Ipratropium) 3 ml Q4H PRN HHN Shortness of Breath 03/19/18 16:45 03/24/18 16:44 Amiodarone HCl 600 mg/Dextrose 379 ml @ 33.33 mls/ hr Q12H IV 03/21/18 08:30 03/21/18 19:53 03/21/18 08:33 Aspirin (ASA) 81 mg DAILY NG 03/16/18 09:00 04/08/18 08:59 03/21/18 09:09 Chlorhexidine Gluconate (Xiomara-Hex 2%) 1 applic DAILY@2000 TOPIC 03/15/18 20:00 04/08/18 22:29 03/20/18 20:49 Clonidine HCl (Catapres Tab) 0.1 mg Q6H PRN ORAL For High Blood Pressure 03/17/18 21:30 04/16/18 21:29 03/20/18 22:03 Dextrose (Dextrose 50%) 25 ml Q30M PRN IV Hypoglycemia 03/15/18 17:45 04/07/18 15:14 Dextrose (Dextrose 50%) 50 ml Q30M PRN IV Hypoglycemia 03/15/18 17:45 04/07/18 15:14 Heparin Sodium (Porcine) (Heparin 5000 units/ml) 5,000 units EVERY 12 HOURS SUBQ 03/15/18 21:00 04/07/18 20:59 03/21/18 09:26 Hydralazine HCl (Apresoline) 25 mg Q8HR ORAL 03/20/18 22:00 04/19/18 21:59 03/21/18 13:51 Insulin Aspart (NovoLOG) Q6HR SUBQ 03/15/18 18:00 04/11/18 11:59 03/21/18 11:38 Lansoprazole (Prevacid) 30 mg Q12HR GT 03/16/18 21:00 04/15/18 20:59 03/21/18 09:09 Levetiracetam (Keppra) 750 mg Q12HR GT 03/15/18 21:00 04/07/18 20:59 03/21/18 09:08 Linezolid 300 ml @ 300 mls/hr Q12HR IVPB 03/17/18 21:00 03/24/18 20:59 03/21/18 09:09 Micafungin Sodium 100 mg/Sodium Chloride 110 ml @ 110 mls/hr Q24H IVPB 03/16/18 10:00 03/24/18 09:59 03/21/18 10:33 Nifedipine (Procardia XL) 30 mg DAILY ORAL 03/21/18 09:00 04/20/18 08:59 03/21/18 09:09 Nitroglycerin (Ntg) 1 patch Q24H TDERMAL 03/16/18 13:00 04/10/18 12:59 03/21/18 12:48 Ondansetron HCl (Zofran) 4 mg Q6H PRN IVP Nausea & Vomiting 03/15/18 17:30 04/07/18 17:29 Quetiapine Fumarate (SEROquel) 12.5 mg Q4H PRN ORAL agitation 03/15/18 17:30 04/08/18 17:29 03/21/18 10:33 Wilder French MD Mar 21, 2018 16:31
[2018-03-21] MEDS ORDERED: D5W 275ml ONE (16:32)
--- NOTE | 2018-03-21 16:50 | General Progress Note ---
Assessment/Plan Problem List: (1) CKD (chronic kidney disease) ICD Codes: N18.9 - Chronic kidney disease, unspecified SNOMED: 228297588 (2) MARK (acute kidney injury) ICD Codes: N17.9 - Acute kidney failure, unspecified SNOMED: 49307678 (3) Sepsis ICD Codes: A41.9 - Sepsis, unspecified organism SNOMED: 19802856 (4) Abnormal LFTs ICD Codes: R94.5 - Abnormal results of liver function studies SNOMED: 056411374 (5) Decubitus ulcer of sacral region, unstageable ICD Codes: L89.150 - Pressure ulcer of sacral region, unstageable SNOMED: 516000918, 724932938 (6) Hyperglycemia ICD Codes: R73.9 - Hyperglycemia, unspecified; N18.9 - Chronic kidney disease, unspecified SNOMED: 13354146 (7) Metabolic acidosis ICD Codes: E87.2 - Acidosis; N18.9 - Chronic kidney disease, unspecified SNOMED: 57094736 (8) Renal failure (ARF), acute on chronic ICD Codes: N17.9 - Acute kidney failure, unspecified; N18.9 - Chronic kidney disease, unspecified SNOMED: 004902401 Qualifiers: Qualified Codes: N17.9 - Acute kidney failure, unspecified; N18.4 - Chronic kidney disease, stage 4 (severe) (9) Anemia ICD Codes: D64.9 - Anemia, unspecified SNOMED: 312183049 Qualifiers: Qualified Codes: D64.9 - Anemia, unspecified (10) Respiratory failure ICD Codes: J96.90 - Respiratory failure, unspecified, unspecified whether with hypoxia or hypercapnia SNOMED: 104223249 Qualifiers: Qualified Codes: J96.00 - Acute respiratory failure, unspecified whether with hypoxia or hypercapnia (11) UTI (urinary tract infection) ICD Codes: N39.0 - Urinary tract infection, site not specified SNOMED: 52348011 Qualifiers: Qualified Codes: T83.511A - Infection and inflammatory reaction due to indwelling urethral catheter, initial encounter; N39.0 - Urinary tract infection , site not specified (12) NSTEMI (non-ST elevated myocardial infarction) ICD Codes: I21.4 - Non-ST elevation (NSTEMI) myocardial infarction SNOMED: 991578798 (13) Severe sepsis ICD Codes: A41.9 - Sepsis, unspecified organism; R65.20 - Severe sepsis without septic shock SNOMED: 43824013 (14) Encephalopathy due to metabolic factor or toxin SNOMED: 175589417 Status: progressing Assessment/Plan transferring to nathaly resp insuff cri abx per id diarrhea has rectal tube nathaly eval requires high level of care reviewed chart and labs sepsis .abx per id pna Subjective ROS Limited/Unobtainable: Yes Allergies: Coded Allergies: PENICILLINS (Unverified Allergy, Mild, 12/04/12) Objective Last 24 Hour Vital Signs Date Time Temp Pulse Resp B/P (MAP) Pulse Ox O2 Delivery O2 Flow Rate FiO2 03/21/18 16:00 78 03/21/18 13:51 179/69 03/21/18 12:48 144/62 03/21/18 12:00 97.9 83 21 144/62 (89) 98 03/21/18 12:00 79 03/21/18 09:09 70 179/75 03/21/18 09:00 Room Air 03/21/18 08:14 70 17 Room Air 21 03/21/18 08:00 73 03/21/18 08:00 98.3 75 20 179/75 (109) 99 03/21/18 05:50 156/69 03/21/18 04:00 70 03/21/18 04:00 97.3 67 16 156/69 (98) 99 03/21/18 01:32 57 118/60 03/21/18 00:00 57 03/21/18 00:00 97.2 57 16 118/60 (79) 98 03/20/18 22:04 78 189/77 03/20/18 22:03 189/74 03/20/18 22:03 189/74 03/20/18 21:30 72 18 Room Air 21 03/20/18 21:00 Room Air 03/20/18 20:52 78 189/74 03/20/18 20:00 97.9 78 19 189/74 (112) 98 03/20/18 20:00 76 Intake and Output 03/20/18 03/21/18 18:59 06:59 Intake Total 980 ml Output Total 1100 ml 1900 ml Balance -1100 ml -920 ml Intake Free Water 100 ml IV Total 400 ml Tube Feeding 480 ml Output Urine Total 1100 ml 1300 ml Stool Total 600 ml Height (Feet): 5 Height (Inches): 10.00 Weight (Pounds): 181 General Appearance: confused Respiratory/Chest: lungs clear Abdomen: soft Krzysztof Schneider MD Mar 21, 2018 16:50
[2018-03-21 20:00] VITALS: BP 163/74
[2018-03-21] MEDS: Dyna-Hex 2% Top Sol 2oz TOPIC SCH (20:00)
--- NOTE | 2018-03-21 23:02 | Cardiology Progress Note ---
Assessment/Plan Assessment/Plan 1. Septic shock, resolved, 2D echocardiography with normal LV systolic function with normal intracardiac filling pressures. 2. Paroxysmal atrial fibrillation with rapid ventricular response, converted to SR, amiodarone infusion completed. 3. History of hypertension, start Nifedipine 30mg daily. 4. History of diabetes mellitus. 5. NSTEMI type II, conservative management. 6. Bradyarrhythmias, junctional beats with retrograde conduction. Subjective Subjective Sinus rhythm at rate of 73. Objective Last 24 Hour Vital Signs Date Time Temp Pulse Resp B/P (MAP) Pulse Ox O2 Delivery O2 Flow Rate FiO2 03/21/18 21:00 Room Air 03/21/18 20:31 69 16 Room Air 21 03/21/18 20:00 98.5 73 20 163/74 (103) 99 03/21/18 16:53 175/70 03/21/18 16:00 78 03/21/18 16:00 97.5 76 20 175/70 (105) 100 03/21/18 13:51 179/69 03/21/18 12:48 144/62 03/21/18 12:00 97.9 83 21 144/62 (89) 98 03/21/18 12:00 79 03/21/18 09:09 70 179/75 03/21/18 09:00 Room Air 03/21/18 08:14 70 17 Room Air 21 03/21/18 08:00 73 03/21/18 08:00 98.3 75 20 179/75 (109) 99 03/21/18 05:50 156/69 03/21/18 04:00 70 03/21/18 04:00 97.3 67 16 156/69 (98) 99 03/21/18 01:32 57 118/60 03/21/18 00:00 57 03/21/18 00:00 97.2 57 16 118/60 (79) 98 Intake and Output 03/20/18 03/21/18 18:59 06:59 Intake Total 980 ml Output Total 1100 ml 1900 ml Balance -1100 ml -920 ml Intake Free Water 100 ml IV Total 400 ml Tube Feeding 480 ml Output Urine Total 1100 ml 1300 ml Stool Total 600 ml 2D Echo: LVEF 55%, Mild LVH, Grade I LVDD, RVSP 20 mmHg Objective HEENT: Atraumatic and normocephalic. Anicteric. Pupils are equal, round,and reactive to light and accommodation. Extraocular muscles intact. NECK: JVP less than 5 cm. No carotid bruits. Carotid upstrokes 2+ bilaterally. CARDIOVASCULAR SYSTEM: Normal S1, S2. Regular rhythm. No murmurs, gallops, or rubs. LUNGS: Diminished breath sounds in both bases. ABDOMEN: Soft, nontender, and nondistended. No hepatosplenomegaly. Positive G- tube in place. EXTREMITIES: No evidence of edema, clubbing, or cyanosis. Everett Tomas MD Mar 21, 2018 23:02
--- NOTE | 2018-03-22 19:00 | Discharge Summary ---
Discharge Summary Discharge Summary _ DATE OF ADMISSION: 03/08/2018 DATE OF DISCHARGE: 03/21/2018 CONSULTANTS: Dr. Javon Park [facility] HOSPITAL COURSE: Patient is an 82-year-old female, who was brought in to ED via EMS due to altered level of consciousness. Patient was hypotensive and was tachypneic. She had been ill for 1 day. She was given IV bolus in the field with some improvement. Again an indwelling Degroot catheter. She has medical history significant for hypertension, diabetes, dysphagia with G-tube, chronic kidney disease, seizure order, encephalopathy and hyperlipidemia. On evaluation at ED, patient was hypotensive, dyspneic and with respiratory distress. Discussion with family regarding level of care was done. Family wants everything done. She was emergently intubated. Blood work showed elevated WBC. Hemoglobin was 9.1, hematocrit 28, creatinine 4.3, BUN 126. Lactic acid 2.0. Troponin was elevated to 0.27. LFTs were elevated. She appeared septic. A central line was inserted to the right femoral vein. She continued to be hypotensive and was eventually started on levophed. Chest x- ray showed prominent interstitial marking and mild CHF with mild basilar atelectasis. She was then admitted to ICU. She was continued on vent support. She was given gentle IV hydration. Renal function was monitored. She was initially started on vancomycin and Zosyn. She was placed on heparin subcutaneously for DVT prophylaxis. Patient had rapid atrial fibrillation. Inbound Sales Manager was consulted. A 2-D echocardiogram showed normal LV systolic function with normal intracardial filling pressure. She was given IV digoxin. Patient with renal failure and oliguric ATN due to septic shock. She was given albumin bolus. Abdominal ultrasound showed echogenic focus in the left renal parenchyma, consistent with angiomyolipoma. Negative for hydronephrosis. There were presence of cholelithiasis, negative dilated ducts. Spleen was unremarkable. Liver with normal echogenicity, no focal abnormality. She came in with an unstageable sacral decubitus ulcer. She was followed by surgery. Wound care was provided. Advised frequent repositioning and offloading. She had venous duplex of the lower extremity that was negative for DVT. She had elevated troponin levels, likely from demand ischemia. She was given conservative management. She had vascular congestion on x-ray with elevated BNP , but clinically appeared dry. She was eventually tapered off IV pressors. On 03/13/2018, she was weaned off vent support and was extubated. She was continued on vancomycin, meropenem and micafungin. Blood culture showed growth of Ling. Urine culture with MRSA, Citrobacter and Morganella. Central line was discontinued and tip was sent for culture. A PICC line was inserted to the left arm. There was a drop off hemoglobin requiring blood transfusion. Die Out Worker was consulted. Anemia workup was done. Patient has anemia of chronic disease. There was no evidence of hemolysis and no evidence of anita bleeding. She had elevated PTT with coagulopathy, may be a factor deficiency but and likely will cause massive blood loss. Thrombocytopenia was related to infection and appeared baseline. Hepatitis and HIV panels were negative. Abdominal ultrasound results were reviewed. She initially had abnormal LFTs which eventually normalized. Probably secondary from shock liver. Patient was confused and agitated. She had waxing and waning of consciousness. She was seen by psychiatrist. She was given Seroquel. She had diarrhea, rectal tube was inserted. C. difficile was negative. Catheter tip grew VRE. She was given Zyvox and micafungin. Septic shock resolved. Leukocytosis resolved. Sacral wound was cleaned at bedside and non-excisional debridement to clean the wound was performed. Fortunately wound was not very deep. She was eventually transferred to [facility]. FINAL DIAGNOSES: Septic shock, resolved Ling sepsis UTI with MRSA and Citrobacter Acute respiratory failure requiring intubation status post extubation Acute on chronic renal failure Oliguric ATN Encephalopathy due to metabolic factor Multisystem organ failure Elevated liver transaminases due to shock liver Paroxysmal atrial fibrillation with RVR, converted to sinus rhythm Hypertension Diabetes mellitus NSTEMI type II Seizure disorder Bedbound at baseline/functional quadriplegia Dysphagia with PEG Drop in hemoglobin requiring blood transfusion Anemia of chronic disease Leukocytosis Coagulopathy Thrombocytopenia Sacral decubitus pressure ulcer, unstageable,present on admission, status post bedside debridement Severe hypoalbuminemia Metabolic acidosis DISPOSITION: Patient was transferred to [facility]. I have been assigned to dictate discharge summary on this account, and I was not involved in the patient's management. Ines Riley NP Mar 22, 2018 19:00
== END 2018-03-21 21:10 | DRG 870 ==
LOC: EDBD 09:50 → EMR 10:22 → ICU 11:16 → EDBEDREQ 11:43 → 2E 03-15 17:02
PROC: 0BH17EZ Insertion of Endotracheal Airway into Trachea, Via Natural or Artificial Opening (ICD-10-PCS; principal; 2018-03-08)
PROC: 5A1955Z Respiratory Ventilation, Greater than 96 Consecutive Hours (ICD-10-PCS; principal; 2018-03-08)
PROC: 06HM33Z Insertion of Infusion Device into Right Femoral Vein, Percutaneous Approach (ICD-10-PCS; principal; 2018-03-08)
PROC: 30233N1 Transfusion of Nonautologous Red Blood Cells into Peripheral Vein, Percutaneous Approach (ICD-10-PCS; 2018-03-10)
PROC: 02HV33Z Insertion of Infusion Device into Superior Vena Cava, Percutaneous Approach (ICD-10-PCS; 2018-03-13)
PROC: B548ZZA Ultrasonography of Superior Vena Cava, Guidance (ICD-10-PCS; 2018-03-13)
DX: B37.7 Candidal sepsis (principal); R65.21 Severe sepsis with septic shock; N17.0 Acute kidney failure with tubular necrosis; J96.00 Acute respiratory failure, unspecified whether with hypoxia or hypercapnia; I21.A1 Myocardial infarction type 2; K72.00 Acute and subacute hepatic failure without coma; G93.41 Metabolic encephalopathy; R53.2 Functional quadriplegia; N39.0 Urinary tract infection, site not specified; Z99.11 Dependence on respirator [ventilator] status; R71.0 Precipitous drop in hematocrit; F03.90 Unspecified dementia, unspecified severity, without behavioral disturbance, psychotic disturbance, mood disturbance, and anxiety; I12.9 Hypertensive chronic kidney disease with stage 1 through stage 4 chronic kidney disease, or unspecified chronic kidney disease; E11.22 Type 2 diabetes mellitus with diabetic chronic kidney disease; E11.65 Type 2 diabetes mellitus with hyperglycemia; N18.9 Chronic kidney disease, unspecified; G40.909 Epilepsy, unspecified, not intractable, without status epilepticus; K21.9 Gastro-esophageal reflux disease without esophagitis; R13.10 Dysphagia, unspecified; Z93.1 Gastrostomy status; B95.62 Methicillin resistant Staphylococcus aureus infection as the cause of diseases classified elsewhere; H54.8 Legal blindness, as defined in USA; I48.0 Paroxysmal atrial fibrillation; L89.150 Pressure ulcer of sacral region, unstageable; D64.9 Anemia, unspecified; E88.09 Other disorders of plasma-protein metabolism, not elsewhere classified; Z74.01 Bed confinement status; D69.6 Thrombocytopenia, unspecified
CPT/HCPCS: 31500; 36415; 36569; 36600; 71045; 76700; 76937; 80053; 80061; 80202; 81003; 82270; 82533; 82550; 82607; 82728; 82746; 82803; 82962; 82977; 83036; 83090; 83540; 83550; 83605; 83615; 83690; 83735; 83880; 84100; 84300; 84443; 84484; 84550; 85007; 85025; 85044; 85060; 85610; 85651; 85730; 86140; 86850; 86900; 86901; 86920; 87040; 87070; 87081; 87086; 87181; 87205; 87324; 93005; 93306; 93970; 94002; 94003; 94640; 94664; 94760; 96361; 96365; 96368; 99291; 99292; J0282; J1815; J7620

== ENCOUNTER 2018-04-14 18:22 | Inpatient (IN) | payer MEDICAID, MEDICARE ==
[~2018-04-14] VITALS: Ht 160 cm; Wt 77.2 kg
[~2018-04-14 18:22] MED LIST changes: +ACETAMINOPHEN325 M1 GT; +ASPIR 8181 MG GT; +ATORVASTATIN CA20 MG GT; +COZAAR50 MG ORAL; +LEVETIRACE100 MG/1 M GT; +METOPROLOL TART50 MG ORAL; +MULTIVITAMINS1 EA13 GT; +NEPRO CARB STE237 ML GT; +PRO-STAT LIQUID30 ML GT
[2018-04-14 18:25] VITALS: BP 115/41
[2018-04-14] MEDS ORDERED: D5 1/2NS w/KCl 20mEq 1,000 ML IV SCH (18:45)
[2018-04-14 19:15] LABS: APPEARANCE,URINE CLEAR; BILIRUBIN, URINE NEGATIVE (NEGATIVE); COLOR,URINE PALE YELLOW; GLUCOSE, URINE (UA) NEGATIVE (NEGATIVE); KETONES,URINE NEGATIVE (NEGATIVE); LEUKOCYTE ESTERASE ,URINE 2+ (NEGATIVE); NITRITE,URINE NEGATIVE (NEGATIVE); PH,URINE 5 (4.5-8.0); PROTEIN,URINE 2+ (NEGATIVE); UROBILINOGEN,URINE NORMAL MG/DL (0.0-1.0)
[2018-04-14 19:22] LABS: HEMATOCRIT 29.1 % (37.0-47.0); HEMOGLOBIN 9.6 G/DL (12.0-16.0); MEAN CORPUSCULAR VOLUME 87 FL (80-99); PLATELET COUNT 248 K/UL (150-450); RED BLOOD COUNT 3.35 M/UL (4.20-5.40); RED CELL DISTRIBUTION WIDTH 13.3 % (11.6-14.8); WHITE BLOOD COUNT 13.8 K/UL (4.8-10.8)
[2018-04-14 19:26] LABS: ANION GAP 7 mmol/L (5-15); BLOOD UREA NITROGEN 80 mg/dL (7-18); CALCIUM 8.9 MG/DL (8.5-10.1); CARBON DIOXIDE 27 MMOL/L (21-32); CHLORIDE 104 MMOL/L (98-107); CREATININE 2.3 MG/DL (0.55-1.30); POTASSIUM 4.3 MMOL/L (3.5-5.1); SODIUM 138 MMOL/L (136-145)
--- NOTE | 2018-04-14 19:36 | Emergency Room Report ---
History of Present Illness General Chief Complaint: General Complaint Source: Medical Record Present Illness HPI Patient is an 82-year-old female who presented after a decreased blood sugar. The patient was noted to be somewhat more somnolent than usual. Patient had been sent in from intermediate. Patient was noted to have low blood sugar in the 20s initially. The patient had been the given medications and subsequently had repeat blood sugar in the 70s. The patient prior history of the right sided leg swelling. The patient was noted to be the okay for CPR and DO NOT INTUBATE. 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 Hx Seizures: Yes Review of Systems All Other Systems: negative except mentioned in HPI Physical Exam Vital Signs Date Time Temp Pulse Resp B/P (MAP) Pulse Ox O2 Delivery O2 Flow Rate FiO2 04/14/18 18:14 52 20 131/92 94 Nasal Cannula 4.0 04/14/18 18:25 93.3 Sp02 EP Interpretation: reviewed, normal General Appearance: alert, lethargic, obese, Chronically Ill Head: atraumatic ENT: dry mucus membranes Neck: no bony tend, limited range of motion Respiratory: no retraction, decreased breath sounds Cardiovascular #1: regular rate, rhythm, bradycardia, edema Gastrointestinal: normal inspection, normal bowel sounds, non tender, soft, no guarding, no hernia Genitourinary: no CVA tenderness Musculoskeletal: back normal, normal range of motion, decreased range of motion - hematoma to right groin Neurologic: responsive, aphasia, motor weakness Psychiatric: depressed affect Skin: no rash, other - multiple ulcers Medical Decision Making Diagnostic Impression: Primary Impression: Encephalopathy due to metabolic factor or toxin Additional Impressions: Hypoglycemia Decubitus ulcer of sacral region, unstageable PEG (percutaneous endoscopic gastrostomy) status Hematoma ER Course The patient presented for altered mental status. Differential diagnosis included was not limited to anemia, CHF, sepsis among others.Because of complexity of patient's case laboratory testing and imaging studies were ordered. The patient was noted to have initial hypoglycemia with a sugar markedly low. This is subsequently improved after treatment. The patient noted to have the some continued low blood sugar was started on dextrose containing fluids.Patient was given IV fluids as well as IV antibiotics. Chest x-ray read by radiology showed increased density at the mid lower lungs which is likely related bilateral pleural effusions versus infiltrate. Laboratory testing was notable for increased BUN/creatinine consistent with renal insufficiency. Per discussion with the family members patient is to not be intubated and not have any CPR but is to have full medical treatment. The patient was discussed with Dr. Krzysztof Prabhakar was contacted for inpatient management Labs Test 04/14/18 18:45 04/14/18 19:00 White Blood Count 13.8 K/UL (4.8-10.8) Red Blood Count 3.35 M/UL (4.20-5.40) Hemoglobin 9.6 G/DL (12.0-16.0) Hematocrit 29.1 % (37.0-47.0) Mean Corpuscular Volume 87 FL (80-99) Mean Corpuscular Hemoglobin 28.6 PG (27.0-31.0) Mean Corpuscular Hemoglobin Concent 32.9 G/DL (32.0-36.0) Red Cell Distribution Width 13.3 % (11.6-14.8) Platelet Count 248 K/UL (150-450) Mean Platelet Volume 7.6 FL (6.5-10.1) Neutrophils (%) (Auto) % (45.0-75.0) Lymphocytes (%) (Auto) % (20.0-45.0) Monocytes (%) (Auto) % (1.0-10.0) Eosinophils (%) (Auto) % (0.0-3.0) Basophils (%) (Auto) % (0.0-2.0) Differential Total Cells Counted 100 Neutrophils % (Manual) 81 % (45-75) Lymphocytes % (Manual) 9 % (20-45) Monocytes % (Manual) 6 % (1-10) Eosinophils % (Manual) 3 % (0-3) Basophils % (Manual) 1 % (0-2) Band Neutrophils 0 % (0-8) Platelet Estimate Adequate Platelet Morphology Normal Hypochromasia 1+ Anisocytosis 1+ Prothrombin Time 10.7 SEC (9.30-11.50) Prothromb Time International Ratio 1.0 (0.9-1.1) Activated Partial Thromboplast Time 30 SEC (23-33) Sodium Level 138 MMOL/L (136-145) Potassium Level 4.3 MMOL/L (3.5-5.1) Chloride Level 104 MMOL/L (98-107) Carbon Dioxide Level 27 MMOL/L (21-32) Anion Gap 7 mmol/L (5-15) Blood Urea Nitrogen 80 mg/dL (7-18) Creatinine 2.3 MG/DL (0.55-1.30) Estimat Glomerular Filtration Rate mL/min (>60) Glucose Level 78 MG/DL (74-106) Lactic Acid Level 1.00 mmol/L (0.4-2.0) Calcium Level 8.9 MG/DL (8.5-10.1) Phosphorus Level 4.5 MG/DL (2.5-4.9) Magnesium Level 3.2 MG/DL (1.8-2.4) Total Bilirubin 0.2 MG/DL (0.2-1.0) Aspartate Amino Transf (AST/SGOT) 25 U/L (15-37) Alanine Aminotransferase (ALT/SGPT) 27 U/L (12-78) Alkaline Phosphatase 206 U/L (46-116) Total Creatine Kinase 61 U/L (26-308) Creatine Kinase MB 1.1 NG/ML (0.0-3.6) Creatine Kinase MB Relative Index 1.8 Troponin I 0.035 ng/mL (0.000-0.056) Pro-B-Type Natriuretic Peptide 2418 pg/mL (0-125) Total Protein 7.5 G/DL (6.4-8.2) Albumin 2.4 G/DL (3.4-5.0) Globulin 5.1 g/dL Albumin/Globulin Ratio 0.5 (1.0-2.7) Urine Color Pale yellow Urine Appearance Clear Urine pH 5 (4.5-8.0) Urine Specific [place] 1.005 (1.005-1.035) Urine Protein 2+ (NEGATIVE) Urine Glucose (UA) Negative (NEGATIVE) Urine Ketones Negative (NEGATIVE) Urine Blood Negative (NEGATIVE) Urine Nitrite Negative (NEGATIVE) Urine Bilirubin Negative (NEGATIVE) Urine Urobilinogen Normal MG/DL (0.0-1.0) Urine Leukocyte Esterase 2+ (NEGATIVE) Urine RBC 0-2 /HPF (0 - 2) Urine WBC 2-4 /HPF (0 - 2) Urine Squamous Epithelial Cells Few /LPF (NONE/OCC) Urine Bacteria Few /HPF (NONE) EKG Diagnostic Results Rate: normal Rhythm: NSR Last Vital Signs Date Time Temp Pulse Resp B/P (MAP) Pulse Ox O2 Delivery O2 Flow Rate FiO2 04/14/18 18:25 93.3 52 18 115/41 99 Nasal Cannula 4.0 Status: unchanged Disposition: ADMITTED INPATIENT Condition: Serious Bob Meredith MD Apr 14, 2018 19:36
[2018-04-14 19:40] LABS: ALANINE AMINOTRANSFERASE 27 U/L (12-78); ALBUMIN 2.4 G/DL (3.4-5.0); ALBUMIN/GLOBULIN RATIO 0.5 (1.0-2.7); ALKALINE PHOSPHATASE 206 U/L (46-116); ASPARTATE AMINO TRANSFERASE 25 U/L (15-37); BILIRUBIN,TOTAL 0.2 MG/DL (0.2-1.0); CKMB 1.1 NG/ML (0.0-3.6); CREATINE KINASE 61 U/L (26-308); PHOSPHORUS 4.5 MG/DL (2.5-4.9)
--- NOTE | 2018-04-14 19:40 | Diagnostic Imaging Report ---
EXAM: XR Chest, 1 View CLINICAL HISTORY: SOB TECHNIQUE: Frontal view of the chest. COMPARISON: 03/09/18 FINDINGS: Lungs: Some prominence is suspected of the pulmonary vascular markings suggestive of pulmonary vascular congestion. Pleural space: Blunting of the costophrenic angles with increased density at the mid and lower lungs which is likely related to bilateral pleural effusions with adjacent atelectasis versus infiltrate. This appears more prominent compared to the prior exam. No definite plain film evidence for pneumothorax. Heart: Prominence of the cardiac silhouette. Mediastinum: Unremarkable. Bones/joints: Degenerative changes of the thoracic spine. IMPRESSION: 1. Blunting of the costophrenic angles with increased density at the mid and lower lungs which is likely related to bilateral pleural effusions with adjacent atelectasis versus infiltrate. This appears more prominent compared to the prior exam. 2. Some prominence is suspected of the pulmonary vascular markings suggestive of pulmonary vascular congestion. 3. Prominence of the cardiac silhouette.
[2018-04-14 19:45] VITALS: BP 127/46
[2018-04-14] MEDS ORDERED: Clindamycin 600mg 50 ML IVPB ONE (20:30)
[2018-04-14] MEDS ORDERED: CATAPRES0.1 MG ORAL (21:10)
[2018-04-14] MEDS ORDERED: GLUCAGON HCL1 MG IJ (21:10)
[2018-04-14] MEDS ORDERED: DOXAZOSIN MESYLA2 MG ORAL (21:10)
[2018-04-14] MEDS ORDERED: HUMALOG100 UNIT/4 SUBQ (21:10)
[2018-04-14] MEDS ORDERED: INSULIN CHARG5 UNITS SUBQ (21:10)
[2018-04-14] MEDS ORDERED: HYDRALAZINE HCL25 M1 GT (21:10)
[2018-04-14] MEDS ORDERED: PREVACID30 M2 GT (21:10)
[2018-04-14] MEDS ORDERED: FERROUS SU300 MG/5 M GT (21:10)
[2018-04-14] MEDS ORDERED: ACETAMINOPHEN325 M1 GT (21:10)
[2018-04-14] MEDS ORDERED: ARANESP40 MCG/1 M SUBQ (21:10)
[2018-04-14 21:15] VITALS: BP 129/53
[2018-04-14] MEDS ORDERED: SANTYL TOPIC (21:17)
[2018-04-14] MEDS ORDERED: VITAMIN C500 M1 GT (21:17)
[2018-04-14] MEDS ORDERED: NIFEDIPINE ER60 M2 ORAL (21:17)
[2018-04-14] MEDS ORDERED: LEVETIRACETAM750 MG GT (21:17)
[2018-04-14] MEDS ORDERED: ZINC GLUCONATE100 MG GT (21:17)
[2018-04-14] MEDS ORDERED: NITROGLYCERIN1 EACH TD (21:17)
[2018-04-14] MEDS ORDERED: CENTRUM MU9 MG/15 ML GT (21:17)
[2018-04-14] MEDS ORDERED: DUONEB 0.5-3(2.53 ML HHN (21:20)
[2018-04-14 21:45] VITALS: BP 143/59
--- NOTE | 2018-04-14 22:11 | Consultation ---
History of Present Illness General Date patient seen: Apr 14, 2018 Chief Complaint: General Complaint Reason for Consultation: right groin mass Present Illness HPI 82 year old female with multiple medical comorbidities who is a retirement resident presented for hypoglycemia. Was noted to be more unresponsive today and blood glucose checked and noted to be hypoglycemic. Came to [facility] [place] [facility] [place] where she was noted to be hypothermic, leukocytosis, and elevated BUN /Cr. On Exam with right groin mass. Surgery called to evaluate. patient seen, chart reviewed, patient examined. of note, patient known to me from prior admission when care was provided. patient unable to respond to questions or participate in exam Allergies: Coded Allergies: PENICILLINS (Unverified Allergy, Mild, 12/04/12) Medication History Scheduled Amino Acids/Protein Hydrolys (Pro-Stat Liquid), 30 ML GT DAILY, (Reported) Ascorbic Acid* (Vitamin C*), 500 MG GT TWICE A DAY, (Reported) Aspirin* (Aspir 81*), 81 MG GT DAILY, (Reported) Darbepoetin Homer In Polysorbat (Aranesp), 40 MCG SUBQ qThursday, (Reported) Doxazosin Mesylate (Doxazosin Mesylate), 2 MG ORAL Q12HR, (Reported) Ferrous Sulfate (Ferrous Sulfate), 7.5 ML GT TID, (Reported) Hydralazine Hcl* (Hydralazine Hcl*), 75 MG GT EVERY 6 HOURS, (Reported) Insulin Human NPH (Novolin N), 20 UNITS SUBQ Q12HR, (Reported) Insulin Lispro (Humalog), 3 UNITS SUBQ Q6HR, (Reported) Lansoprazole* (Prevacid*), 30 MG GT Q12HR, (Reported) Levetiracetam (Levetiracetam), 750 MG GT TWICE A DAY, (Reported) Metoprolol Tartrate* (Metoprolol Tartrate*), 50 MG ORAL EVERY 12 HOURS, ( Reported) Multivits W-Min/Ferrous Gluc (Centrum Multivit-Mineral Liq), 5 ML GT DAILY, ( Reported) Nifedipine* (Nifedipine Er*), 60 MG ORAL Q8HR, (Reported) Nitroglycerin (Nitroglycerin Patch), 0.4 MG TD DAILY, (Reported) Nut.tx.impaired Renal Fxn,Soy (Nepro Carb Steady), 40 ML GT Q12HR, (Reported) Zinc Gluconate (Zinc Gluconate), 220 MG GT DAILY, (Reported) [Santyl ointment], 250 UNITS TOPIC DAILY, (Reported) Scheduled PRN Acetaminophen* (Acetaminophen 325MG Tablet*), 650 MG GT Q6H PRN for Mild Pain ( Pain Scale 1-3), (Reported) Clonidine Hcl* (Catapres*), 0.1 MG ORAL EVERY 6 HOURS PRN for SBP > 160, ( Reported) Glucagon HCl (Glucagon HCl), 1 MG IJ every 5 minutes x3 PRN for hypoglycemia, ( Reported) Insulin Lispro (Humalog), 0 SUBQ Q6HR PRN for Sliding Scale, (Reported) Ipratropium/Albuterol Sulfate (DuoNeb 0.5-3(2.5)mg/3ml), 3 ML HHN Q4HR PRN for Shortness of Breath, (Reported) Discontinued Medications Acetaminophen With Codeine (T#3) (Tylenol #3 Tab*), 1 TAB ORAL PRN, (Reported) Discontinued Reason: MD discontinued med Amlodipine Besylate (Norvasc), 5 MG GT DAILY, (Reported) Discontinued Reason: MD discontinued med Aspirin/Dipyridamole* (Aggrenox 25 Mg-200 Mg Capsule*), 1 CAP ORAL TWICE A DAY, (Reported) Discontinued Reason: MD discontinued med Atorvastatin Calcium* (Atorvastatin Calcium*), 10 MG GT BEDTIME, (Reported) Discontinued Reason: MD discontinued med Calcium Carbonate/Vitamin D3 (Calcium 500 + Vit D 200 Caplet), 1 EACH PO BID, ( Reported) Discontinued Reason: MD discontinued med Cranberry (Cranberry), 450 MG PO, (Reported) Discontinued Reason: MD discontinued med Dipyridamole/Aspirin (Aggrenox 25 mg-200 mg Capsule), 1 CAP ORAL TWICE A DAY, ( Reported) Discontinued Reason: MD discontinued med Docusate Sodium* (Docusate Sodium*), 100 MG ORAL TWICE A DAY, (Reported) Discontinued Reason: MD discontinued med Gabapentin* (Neurontin*), 100 MG GT THREE TIMES A DAY, (Reported) Discontinued Reason: MD discontinued med Insulin Detemir (Levemir Flexpen), 12 UNIT SUBQ Q12HR, (Reported) Discontinued Reason: MD discontinued med Insulin Detemir (Levemir), 30 SUBQ BEDTIME, (Reported) Discontinued Reason: MD discontinued med Losartan Potassium* (Cozaar*), 50 MG ORAL TWICE A DAY, (Reported) Discontinued Reason: MD discontinued med Mag Hydrox/Al Hydrox/Simeth (Alum-Mag Hydroxide-Simeth Liq), 360 ML PO, ( Reported) Discontinued Reason: MD discontinued med Meclizine Hcl* (Meclizine*), 25 MG ORAL THREE TIMES A DAY, (Reported) Discontinued Reason: MD discontinued med Pantoprazole (Pantoprazole), 40 MG GT DAILY, (Reported) Discontinued Reason: MD discontinued med Polyethylene Glycol 3350* (Miralax*), 17 GM ORAL HS, (Reported) Discontinued Reason: MD discontinued med Polyethylene Glycol 3350* (Miralax*), 17 GM ORAL DAILY, (Reported) Discontinued Reason: MD discontinued med Potassium (Potassium), 8 MEQ PO DAILY, (Reported) Discontinued Reason: MD discontinued med Sennosides (Patti-Elpidio), 8.6 MG PO, (Reported) Discontinued Reason: MD discontinued med Sucralfate* (Carafate*), 1 GM GT TID, (Reported) Discontinued Reason: MD discontinued med Vit B Cmplx 3/Fa/Vit C/Biotin (Sasha-Hannah Rx Tablet), 1 EACH PO DAILY, (Reported) Discontinued Reason: MD discontinued med Zolpidem Tartrate* (Ambien*), 5 MG ORAL BEDTIME PRN for Insomnia, (Reported) Discontinued Reason: MD discontinued med Patient History Limited by: medical condition History Provided By: Medical Record, PMD Healthcare decision maker N Resuscitation status Advanced Directive on File Past Medical/Surgical History Past Medical/Surgical History: (1) Seizure disorder (2) CKD (chronic kidney disease) (3) MARK (acute kidney injury) (4) Sepsis (5) Hypertension (6) Abnormal LFTs (7) Anemia (8) Shock (9) Hematoma (10) Hypoglycemia (11) Decubitus ulcer of sacral region, unstageable (12) Encephalopathy due to metabolic factor or toxin Review of Systems ROS Narrative cannot obtain given medical condition Physical Exam General Appearance: lethargic, mild distress Lines, tubes and drains: peripheral HEENT: anicteric, mucous membranes moist Neck: normal inspection Respiratory/Chest: normal breath sounds, no respiratory distress, no accessory muscle use Cardiovascular/Chest: normal rate, regularly irregular Abdomen: soft, no organomegaly, no mass, feeding tube Extremities: other - moderate sized right femoral area hematoma without signs of active infection / skin changes. Skin Exam: other Neurologic: unresponsiveness Last 24 Hour Vital Signs Date Time Temp Pulse Resp B/P (MAP) Pulse Ox O2 Delivery O2 Flow Rate FiO2 04/14/18 19:45 93.3 50 18 127/46 97 Nasal Cannula 4.0 04/14/18 18:25 93.3 52 18 115/41 99 Nasal Cannula 4.0 04/14/18 18:24 52 20 Nasal Cannula 4.0 18 18:14 52 20 131/92 94 Nasal Cannula 4.0 Laboratory Tests Test 04/14/18 18:45 04/14/18 19:00 White Blood Count 13.8 K/UL (4.8-10.8) H Red Blood Count 3.35 M/UL (4.20-5.40) L Hemoglobin 9.6 G/DL (12.0-16.0) L Hematocrit 29.1 % (37.0-47.0) L Mean Corpuscular Volume 87 FL (80-99) Mean Corpuscular Hemoglobin 28.6 PG (27.0-31.0) Mean Corpuscular Hemoglobin Concent 32.9 G/DL (32.0-36.0) Red Cell Distribution Width 13.3 % (11.6-14.8) Platelet Count 248 K/UL (150-450) Mean Platelet Volume 7.6 FL (6.5-10.1) Neutrophils (%) (Auto) % (45.0-75.0) Lymphocytes (%) (Auto) % (20.0-45.0) Monocytes (%) (Auto) % (1.0-10.0) Eosinophils (%) (Auto) % (0.0-3.0) Basophils (%) (Auto) % (0.0-2.0) Differential Total Cells Counted 100 Neutrophils % (Manual) 81 % (45-75) H Lymphocytes % (Manual) 9 % (20-45) L Monocytes % (Manual) 6 % (1-10) Eosinophils % (Manual) 3 % (0-3) Basophils % (Manual) 1 % (0-2) Band Neutrophils 0 % (0-8) Platelet Estimate Adequate Platelet Morphology Normal Hypochromasia 1+ Anisocytosis 1+ Prothrombin Time 10.7 SEC (9.30-11.50) Prothromb Time International Ratio 1.0 (0.9-1.1) Activated Partial Thromboplast Time 30 SEC (23-33) Sodium Level 138 MMOL/L (136-145) Potassium Level 4.3 MMOL/L (3.5-5.1) Chloride Level 104 MMOL/L (98-107) Carbon Dioxide Level 27 MMOL/L (21-32) Anion Gap 7 mmol/L (5-15) Blood Urea Nitrogen 80 mg/dL (7-18) H Creatinine 2.3 MG/DL (0.55-1.30) H Estimat Glomerular Filtration Rate mL/min (>60) Glucose Level 78 MG/DL (74-106) Lactic Acid Level 1.00 mmol/L (0.4-2.0) Calcium Level 8.9 MG/DL (8.5-10.1) Phosphorus Level 4.5 MG/DL (2.5-4.9) Magnesium Level 3.2 MG/DL (1.8-2.4) H Total Bilirubin 0.2 MG/DL (0.2-1.0) Aspartate Amino Transf (AST/SGOT) 25 U/L (15-37) Alanine Aminotransferase (ALT/SGPT) 27 U/L (12-78) Alkaline Phosphatase 206 U/L (46-116) H Total Creatine Kinase 61 U/L (26-308) Creatine Kinase MB 1.1 NG/ML (0.0-3.6) Creatine Kinase MB Relative Index 1.8 Troponin I 0.035 ng/mL (0.000-0.056) Pro-B-Type Natriuretic Peptide 2418 pg/mL (0-125) H Total Protein 7.5 G/DL (6.4-8.2) Albumin 2.4 G/DL (3.4-5.0) L Globulin 5.1 g/dL Albumin/Globulin Ratio 0.5 (1.0-2.7) L Urine Color Pale yellow Urine Appearance Clear Urine pH 5 (4.5-8.0) Urine Specific [place] 1.005 (1.005-1.035) Urine Protein 2+ (NEGATIVE) H Urine Glucose (UA) Negative (NEGATIVE) Urine Ketones Negative (NEGATIVE) Urine Blood Negative (NEGATIVE) Urine Nitrite Negative (NEGATIVE) Urine Bilirubin Negative (NEGATIVE) Urine Urobilinogen Normal MG/DL (0.0-1.0) Urine Leukocyte Esterase 2+ (NEGATIVE) H Urine RBC 0-2 /HPF (0 - 2) Urine WBC 2-4 /HPF (0 - 2) Urine Squamous Epithelial Cells Few /LPF (NONE/OCC) Urine Bacteria Few /HPF (NONE) Microbiology Date/Time Source Procedure Growth Status 04/14/18 19:00 Nasal Nares Influenza Types A,B Antigen (KEVIN) - Final Complete Height (Feet): 5 Height (Inches): 4.00 Weight (Pounds): 180 Medications Current Medications Medications (Trade) Dose Ordered Sig/Gelacio Route PRN Reason Start Time Stop Time Status Last Admin Dose Admin Dextrose/ Electrolytes 1,000 ml @ 125 mls/hr Q8H IV 04/14/18 18:45 05/14/18 18:44 04/14/18 19:02 Assessment/Plan Problem List: (1) Mass of right thigh Assessment & Plan: likely hematoma. see below ICD Codes: R22.41 - Localized swelling, mass and lump, right lower limb SNOMED: 579090188 (2) Hematoma Assessment & Plan: Right Thigh Hematoma. Likely from prior femoral line insertion given puncture site. Will obtain records to identify when and if line placed no signs of infection will obtain venous duplex of lower extremity and US of site to further evaluation warm compress will monitor clinically for now thank you for this consultation will follow with recs ICD Codes: T14.8XXA - Other injury of unspecified body region, initial encounter SNOMED: 242367990 (3) Decubitus ulcer of sacral region, unstageable ICD Codes: L89.150 - Pressure ulcer of sacral region, unstageable SNOMED: 224163328, [id number] Jean Marie Park Apr 14, 2018 22:11
[2018-04-14] MEDS ORDERED: Acetaminophen 650 MG SUPP RECTAL PRN (22:15)
[2018-04-14] MEDS ORDERED: Morphine Sulfate 2mg/ml Inj IVP PRN ×2 (22:15)
[2018-04-14] MEDS ORDERED: NEPRO CARB STE237 ML GT (23:04)
[2018-04-14] MEDS ORDERED: D5NS 1,000 ML IV SCH (23:11)
[2018-04-15] VITALS: BP 139/52
[2018-04-15 04:55] LABS: BASOPHILS % (AUTO) 0.8 % (0.0-2.0); EOSINOPHILS % (AUTO) 0.8 % (0.0-3.0); HEMATOCRIT 29.3 % (37.0-47.0); HEMOGLOBIN 9.6 G/DL (12.0-16.0); LYMPHOCYTES % (AUTO) 12.5 % (20.0-45.0); MEAN CORPUSCULAR VOLUME 88 FL (80-99); MONOCYTES % (AUTO) 8.1 % (1.0-10.0); PLATELET COUNT 225 K/UL (150-450); RED BLOOD COUNT 3.34 M/UL (4.20-5.40); RED CELL DISTRIBUTION WIDTH 13.6 % (11.6-14.8); WHITE BLOOD COUNT 10.6 K/UL (4.8-10.8)
[2018-04-15 05:34] LABS: CHOLESTEROL 145 MG/DL (< 200); HDL CHOLESTEROL 78 MG/DL (40-60); TRIGLYCERIDES 21 MG/DL (30-150)
--- NOTE | 2018-04-15 07:03 | General Progress Note ---
Assessment/Plan Problem List: (1) Hypoglycemia ICD Codes: E16.2 - Hypoglycemia, unspecified SNOMED: 251756956 (2) CKD (chronic kidney disease) ICD Codes: N18.9 - Chronic kidney disease, unspecified SNOMED: 659401114 (3) Encephalopathy due to metabolic factor or toxin SNOMED: 170506236 (4) Hypertension ICD Codes: I10 - Essential (primary) hypertension SNOMED: 47632960 Assessment/Plan continue TF continue IVF NISS low dose every 6 hours Subjective ROS Limited/Unobtainable: Yes Allergies: Coded Allergies: PENICILLINS (Unverified Allergy, Mild, 12/04/12) Subjective Patient is an 82-year-old female who presented after a decreased blood sugar. The patient was noted to be somewhat more somnolent than usual. Patient had been sent in from [facility]. Patient was noted to have low blood sugar in the 20s initially. The patient had been the given medications and subsequently had repeat blood sugar in the 70s. The patient prior history of the right sided leg swelling. The patient was noted to be the okay for CPR and DO NOT INTUBATE. The patient had been followed by [facility] Last 24 Hour Vital Signs Date Time Temp Pulse Resp B/P (MAP) Pulse Ox O2 Delivery O2 Flow Rate FiO2 04/15/18 04:34 Room Air 2.0 04/15/18 04:00 69 04/15/18 00:00 97.4 65 24 139/52 (81) 98 04/15/18 00:00 60 04/14/18 23:03 Nasal Cannula 2.0 04/14/18 21:45 97.4 54 24 143/59 (87) 100 04/14/18 21:35 98.1 54 18 129/53 97 Nasal Cannula 4.0 04/14/18 21:15 98.1 54 18 129/53 97 Nasal Cannula 4.0 04/14/18 19:45 93.3 50 18 127/46 97 Nasal Cannula 4.0 04/14/18 18:25 93.3 52 18 115/41 99 Nasal Cannula 4.0 04/14/18 18:24 52 20 Nasal Cannula 4.0 04/14/18 18:14 52 20 131/92 94 Nasal Cannula 4.0 Intake and Output 04/14/18 04/15/18 19:00 07:00 Intake Total 195 ml Output Total 800 ml Balance -605 ml Intake Free Water 30 ml Tube Feeding 165 ml Output Urine Total 800 ml # Voids 1 Laboratory Tests 04/14/18 18:45: White Blood Count 13.8H, Red Blood Count 3.35L, Hemoglobin 9.6L, Hematocrit 29.1L, Mean Corpuscular Volume 87, Mean Corpuscular Hemoglobin 28.6, Mean Corpuscular Hemoglobin Concent 32.9, Red Cell Distribution Width 13.3, Platelet Count 248, Mean Platelet Volume 7.6, Neutrophils (%) (Auto) , Lymphocytes (%) ( Auto) , Monocytes (%) (Auto) , Eosinophils (%) (Auto) , Basophils (%) (Auto) , Differential Total Cells Counted 100, Neutrophils % (Manual) 81H, Lymphocytes % (Manual) 9L, Monocytes % (Manual) 6, Eosinophils % (Manual) 3, Basophils % ( Manual) 1, Band Neutrophils 0, Platelet Estimate Adequate, Platelet Morphology Normal, Hypochromasia 1+, Anisocytosis 1+, Prothrombin Time 10.7, Prothromb Time International Ratio 1.0, Activated Partial Thromboplast Time 30, Sodium Level 138, Potassium Level 4.3, Chloride Level 104, Carbon Dioxide Level 27, Anion Gap 7, Blood Urea Nitrogen 80H, Creatinine 2.3H, Estimat Glomerular Filtration Rate , Glucose Level 78, Lactic Acid Level 1.00, Calcium Level 8.9, Phosphorus Level 4.5, Magnesium Level 3.2H, Total Bilirubin 0.2, Aspartate Amino Transf (AST/SGOT) 25, Alanine Aminotransferase (ALT/SGPT) 27, Alkaline Phosphatase 206H, Total Creatine Kinase 61, Creatine Kinase MB 1.1, Creatine Kinase MB Relative Index 1.8, Troponin I 0.035, Pro-B-Type Natriuretic Peptide 2418H, Total Protein 7.5, Albumin 2.4L, Globulin 5.1, Albumin/Globulin Ratio 0.5L 04/14/18 19:00: Urine Color Pale yellow, Urine Appearance Clear, Urine pH 5, Urine Specific Irwin 1.005, Urine Protein 2+H, Urine Glucose (UA) Negative, Urine Ketones Negative, Urine Blood Negative, Urine Nitrite Negative, Urine Bilirubin Negative , Urine Urobilinogen Normal, Urine Leukocyte Esterase 2+H, Urine RBC 0-2, Urine WBC 2-4, Urine Squamous Epithelial Cells Few, Urine Bacteria Few 04/15/18 03:30: White Blood Count 10.6, Red Blood Count 3.34L, Hemoglobin 9.6L, Hematocrit 29.3L , Mean Corpuscular Volume 88, Mean Corpuscular Hemoglobin 28.8, Mean Corpuscular Hemoglobin Concent 32.8, Red Cell Distribution Width 13.6, Platelet Count 225, Mean Platelet Volume 7.7, Neutrophils (%) (Auto) 78.0H, Lymphocytes ( %) (Auto) 12.5L, Monocytes (%) (Auto) 8.1, Eosinophils (%) (Auto) 0.8, Basophils (%) (Auto) 0.8, Prothrombin Time 10.5, Prothromb Time International Ratio 1.0, Activated Partial Thromboplast Time 30, Triglycerides Level 21L, Cholesterol Level 145, LDL Cholesterol 73, HDL Cholesterol 78H, Cholesterol/HDL Ratio 1.9L, Lipase 175, Thyroid Stimulating Hormone (TSH) 1.174 Height (Feet): 5 Height (Inches): 3.00 Weight (Pounds): 162 General Appearance: no apparent distress Neck: normal alignment Cardiovascular: normal rate Respiratory/Chest: normal breath sounds Abdomen: normal bowel sounds Pelvis: normal external exam Objective Current Medications Medications (Trade) Dose Ordered Sig/Gelacio Route PRN Reason Start Time Stop Time Status Last Admin Dose Admin Acetaminophen (Tylenol) 650 mg Q4H PRN RECTAL fever 04/14/18 22:15 05/14/18 22:14 Bisacodyl (Dulcolax) 10 mg DAILYPRN PRN RECTAL Constipation 04/14/18 22:15 05/14/18 22:14 Dextrose (Dextrose 50%) 50 ml Q30M PRN IV Hypoglycemia 04/15/18 03:15 05/15/18 03:14 Dextrose/Sodium Chloride 1,000 ml @ 50 mls/hr Q20H IV 04/14/18 23:11 05/14/18 23:10 04/14/18 23:40 Diphenhydramine HCl (Benadryl) 25 mg Q6H PRN ORAL Itching/Pruritis 04/14/18 22:15 05/14/18 22:14 Docusate Sodium (Colace) 100 mg EVERY 12 HOURS ORAL 04/15/18 09:00 1/1/19 08:59 Morphine Sulfate (Morphine Sulfate) 1 mg EVERY 3 HOURS PRN IVP For Pain 04/14/18 22:15 04/21/18 22:14 Morphine Sulfate (Morphine Sulfate) 2 mg EVERY 3 HOURS PRN IVP Moderate Pain (Pain Scale 4-6) 04/14/18 22:15 04/21/18 22:14 Ondansetron HCl (Zofran) 4 mg Q6H PRN IVP Nausea & Vomiting 04/14/18 22:15 05/14/18 22:14 Pantoprazole (Protonix) 40 mg DAILY IV 04/15/18 09:00 05/15/18 08:59 Item Value Date Time Bedside Blood Glucose 153 mg/dl H 04/15/18 0400 Bedside Blood Glucose 75 mg/dl 04/14/18 2035 Bedside Blood Glucose 87 mg/dl 04/14/18 1825 Awais Badillo MD Apr 15, 2018 07:03
[2018-04-15] MEDS: NovoLOG Insulin Flexpen SUBQ SCH ×5 (08:26→23:25)
[2018-04-15] MEDS ORDERED: Docusate 100mg cap ORAL SCH (09:00)
[2018-04-15] MEDS ORDERED: Pantoprazole Inj IV SCH (09:00)
--- NOTE | 2018-04-15 10:25 | Consultation ---
History of Present Illness General Date patient seen: Apr 15, 2018 Time patient seen: 10:17 Chief Complaint: General Complaint Referring physician: Dr Prabhakar Reason for Consultation: Hypoxemia Present Illness HPI 82 F NHR non-verbal, prior CVA, recent admission with sepsis, dysphagia S/P PEG BIB EMS with hypoglycemia, bradycardia, possible PNA and AMS. S/P Cleocyin in the ER, BS improved, also MARK getting IVF. She also has a R thigh mass vs HT. No hx is obtainable from the patient. Allergies: Coded Allergies: PENICILLINS (Unverified Allergy, Mild, 12/04/12) Medication History Scheduled Amino Acids/Protein Hydrolys (Pro-Stat Liquid), 30 ML GT DAILY, (Reported) Ascorbic Acid* (Vitamin C*), 500 MG GT TWICE A DAY, (Reported) Aspirin* (Aspir 81*), 81 MG GT DAILY, (Reported) Darbepoetin Homer In Polysorbat (Aranesp), 40 MCG SUBQ qThursday, (Reported) Doxazosin Mesylate (Doxazosin Mesylate), 2 MG ORAL Q12HR, (Reported) Ferrous Sulfate (Ferrous Sulfate), 7.5 ML GT TID, (Reported) Hydralazine Hcl* (Hydralazine Hcl*), 75 MG GT EVERY 6 HOURS, (Reported) Insulin Human NPH (Novolin N), 20 UNITS SUBQ Q12HR, (Reported) Insulin Lispro (Humalog), 3 UNITS SUBQ Q6HR, (Reported) Lansoprazole* (Prevacid*), 30 MG GT Q12HR, (Reported) Levetiracetam (Levetiracetam), 750 MG GT TWICE A DAY, (Reported) Metoprolol Tartrate* (Metoprolol Tartrate*), 50 MG ORAL EVERY 12 HOURS, ( Reported) Multivits W-Min/Ferrous Gluc (Centrum Multivit-Mineral Liq), 5 ML GT DAILY, ( Reported) Nifedipine* (Nifedipine Er*), 60 MG ORAL Q8HR, (Reported) Nitroglycerin (Nitroglycerin Patch), 0.4 MG TD DAILY, (Reported) Nut.tx.impaired Renal Fxn,Soy (Nepro Carb Steady), 45 ML GT DAILY, (Reported) Zinc Gluconate (Zinc Gluconate), 220 MG GT DAILY, (Reported) [Santyl ointment], 250 UNITS TOPIC DAILY, (Reported) Scheduled PRN Acetaminophen* (Acetaminophen 325MG Tablet*), 650 MG GT Q6H PRN for Mild Pain ( Pain Scale 1-3), (Reported) Clonidine Hcl* (Catapres*), 0.1 MG ORAL EVERY 6 HOURS PRN for SBP > 160, ( Reported) Glucagon HCl (Glucagon HCl), 1 MG IJ every 5 minutes x3 PRN for hypoglycemia, ( Reported) Insulin Lispro (Humalog), 0 SUBQ Q6HR PRN for Sliding Scale, (Reported) Ipratropium/Albuterol Sulfate (DuoNeb 0.5-3(2.5)mg/3ml), 3 ML HHN Q4HR PRN for Shortness of Breath, (Reported) Discontinued Medications Acetaminophen With Codeine (T#3) (Tylenol #3 Tab*), 1 TAB ORAL PRN, (Reported) Discontinued Reason: MD discontinued med Amlodipine Besylate (Norvasc), 5 MG GT DAILY, (Reported) Discontinued Reason: MD discontinued med Aspirin/Dipyridamole* (Aggrenox 25 Mg-200 Mg Capsule*), 1 CAP ORAL TWICE A DAY, (Reported) Discontinued Reason: MD discontinued med Atorvastatin Calcium* (Atorvastatin Calcium*), 10 MG GT BEDTIME, (Reported) Discontinued Reason: MD discontinued med Calcium Carbonate/Vitamin D3 (Calcium 500 + Vit D 200 Caplet), 1 EACH PO BID, ( Reported) Discontinued Reason: MD discontinued med Cranberry (Cranberry), 450 MG PO, (Reported) Discontinued Reason: MD discontinued med Dipyridamole/Aspirin (Aggrenox 25 mg-200 mg Capsule), 1 CAP ORAL TWICE A DAY, ( Reported) Discontinued Reason: MD discontinued med Docusate Sodium* (Docusate Sodium*), 100 MG ORAL TWICE A DAY, (Reported) Discontinued Reason: MD discontinued med Gabapentin* (Neurontin*), 100 MG GT THREE TIMES A DAY, (Reported) Discontinued Reason: MD discontinued med Insulin Detemir (Levemir Flexpen), 12 UNIT SUBQ Q12HR, (Reported) Discontinued Reason: MD discontinued med Insulin Detemir (Levemir), 30 SUBQ BEDTIME, (Reported) Discontinued Reason: MD discontinued med Losartan Potassium* (Cozaar*), 50 MG ORAL TWICE A DAY, (Reported) Discontinued Reason: discontinued med Mag Hydrox/Al Hydrox/Simeth (Alum-Mag Hydroxide-Simeth Liq), 360 ML PO, ( Reported) Discontinued Reason: MD discontinued med Meclizine Hcl* (Meclizine*), 25 MG ORAL THREE TIMES A DAY, (Reported) Discontinued Reason: MD discontinued med Pantoprazole (Pantoprazole), 40 MG GT DAILY, (Reported) Discontinued Reason: MD discontinued med Polyethylene Glycol 3350* (Miralax*), 17 GM ORAL HS, (Reported) Discontinued Reason: MD discontinued med Polyethylene Glycol 3350* (Miralax*), 17 GM ORAL DAILY, (Reported) Discontinued Reason: MD discontinued med Potassium (Potassium), 8 MEQ PO DAILY, (Reported) Discontinued Reason: MD discontinued med Sennosides (Patti-Elpidio), 8.6 MG PO, (Reported) Discontinued Reason: MD discontinued med Sucralfate* (Carafate*), 1 GM GT TID, (Reported) Discontinued Reason: MD discontinued med Vit B Cmplx 3/Fa/Vit C/Biotin (Sasha-Hannah Rx Tablet), 1 EACH PO DAILY, (Reported) Discontinued Reason: MD discontinued med Zolpidem Tartrate* (Ambien*), 5 MG ORAL BEDTIME PRN for Insomnia, (Reported) Discontinued Reason: MD discontinued med Patient History Limited by: medical condition History Provided By: Medical Record Healthcare decision maker Raven Gonzalez Resuscitation status Do Not Intubate Advanced Directive on File Past Medical/Surgical History Past Medical/Surgical History: (1) Seizure disorder (2) Sepsis (3) Hypertension (4) Shock (5) CKD (chronic kidney disease) (6) MARK (acute kidney injury) (7) Abnormal LFTs (8) Mass of right thigh (9) Hypoglycemia (10) Hematoma (11) Decubitus ulcer of sacral region, unstageable (12) Encephalopathy due to metabolic factor or toxin (13) PEG (percutaneous endoscopic gastrostomy) status (14) shelter resident Social History Social History: (1) shelter resident Review of Systems ROS Narrative Unobtainable Physical Exam General Appearance: cachetic, other - non verbal Lines, tubes and drains: gtube HEENT: normocephalic, atraumatic, other - dry MM Neck: supple Respiratory/Chest: chest wall non-tender, lungs clear, normal breath sounds, no respiratory distress, no accessory muscle use Cardiovascular/Chest: normal peripheral pulses, regular rhythm, bradycardia Abdomen: normal bowel sounds, non tender, soft, no organomegaly, no mass, feeding tube Extremities: non-tender, no calf tenderness, other - R groin mass/palpable Last 24 Hour Vital Signs Date Time Temp Pulse Resp B/P (MAP) Pulse Ox O2 Delivery O2 Flow Rate FiO2 04/15/18 04:34 Room Air 2.0 04/15/18 04:00 69 04/15/18 00:00 97.4 65 24 139/52 (81) 98 04/15/18 00:00 60 04/14/18 23:03 Nasal Cannula 2.0 04/14/18 21:45 97.4 54 24 143/59 (87) 100 04/14/18 21:35 98.1 54 18 129/53 97 Nasal Cannula 4.0 04/14/18 21:15 98.1 54 18 129/53 97 Nasal Cannula 4.0 04/14/18 19:45 93.3 50 18 127/46 97 Nasal Cannula 4.0 04/14/18 18:25 93.3 52 18 115/41 99 Nasal Cannula 4.0 04/14/18 18:24 52 20 Nasal Cannula 4.0 04/14/18 18:14 52 20 131/92 94 Nasal Cannula 4.0 Intake and Output 04/14/18 04/15/18 19:00 07:00 Intake Total 195 ml Output Total 800 ml Balance -605 ml Intake Free Water 30 ml Tube Feeding 165 ml Output Urine Total 800 ml # Voids 1 Laboratory Tests Test 04/14/18 18:45 04/14/18 19:00 04/15/18 03:30 White Blood Count 13.8 K/UL (4.8-10.8) H 10.6 K/UL (4.8-10.8) Red Blood Count 3.35 M/UL (4.20-5.40) L 3.34 M/UL (4.20-5.40) L Hemoglobin 9.6 G/DL (12.0-16.0) L 9.6 G/DL (12.0-16.0) L Hematocrit 29.1 % (37.0-47.0) L 29.3 % (37.0-47.0) L Mean Corpuscular Volume 87 FL (80-99) 88 FL (80-99) Mean Corpuscular Hemoglobin 28.6 PG (27.0-31.0) 28.8 PG (27.0-31.0) Mean Corpuscular Hemoglobin Concent 32.9 G/DL (32.0-36.0) 32.8 G/DL (32.0-36.0) Red Cell Distribution Width 13.3 % (11.6-14.8) 13.6 % (11.6-14.8) Platelet Count 248 K/UL (150-450) 225 K/UL (150-450) Mean Platelet Volume 7.6 FL (6.5-10.1) 7.7 FL (6.5-10.1) Neutrophils (%) (Auto) % (45.0-75.0) 78.0 % (45.0-75.0) H Lymphocytes (%) (Auto) % (20.0-45.0) 12.5 % (20.0-45.0) L Monocytes (%) (Auto) % (1.0-10.0) 8.1 % (1.0-10.0) Eosinophils (%) (Auto) % (0.0-3.0) 0.8 % (0.0-3.0) Basophils (%) (Auto) % (0.0-2.0) 0.8 % (0.0-2.0) Differential Total Cells Counted 100 Neutrophils % (Manual) 81 % (45-75) H Lymphocytes % (Manual) 9 % (20-45) L Monocytes % (Manual) 6 % (1-10) Eosinophils % (Manual) 3 % (0-3) Basophils % (Manual) 1 % (0-2) Band Neutrophils 0 % (0-8) Platelet Estimate Adequate Platelet Morphology Normal Hypochromasia 1+ Anisocytosis 1+ Prothrombin Time 10.7 SEC (9.30-11.50) 10.5 SEC (9.30-11.50) Prothromb Time International Ratio 1.0 (0.9-1.1) 1.0 (0.9-1.1) Activated Partial Thromboplast Time 30 SEC (23-33) 30 SEC (23-33) Sodium Level 138 MMOL/L (136-145) Potassium Level 4.3 MMOL/L (3.5-5.1) Chloride Level 104 MMOL/L (98-107) Carbon Dioxide Level 27 MMOL/L (21-32) Anion Gap 7 mmol/L (5-15) Blood Urea Nitrogen 80 mg/dL (7-18) H Creatinine 2.3 MG/DL (0.55-1.30) H Estimat Glomerular Filtration Rate mL/min (>60) Glucose Level 78 MG/DL (74-106) Lactic Acid Level 1.00 mmol/L (0.4-2.0) Calcium Level 8.9 MG/DL (8.5-10.1) Phosphorus Level 4.5 MG/DL (2.5-4.9) Magnesium Level 3.2 MG/DL (1.8-2.4) H Total Bilirubin 0.2 MG/DL (0.2-1.0) Aspartate Amino Transf (AST/SGOT) 25 U/L (15-37) Alanine Aminotransferase (ALT/SGPT) 27 U/L (12-78) Alkaline Phosphatase 206 U/L (46-116) H Total Creatine Kinase 61 U/L (26-308) Creatine Kinase MB 1.1 NG/ML (0.0-3.6) Creatine Kinase MB Relative Index 1.8 Troponin I 0.035 ng/mL (0.000-0.056) Pro-B-Type Natriuretic Peptide 2418 pg/mL (0-125) H Total Protein 7.5 G/DL (6.4-8.2) Albumin 2.4 G/DL (3.4-5.0) L Globulin 5.1 g/dL Albumin/Globulin Ratio 0.5 (1.0-2.7) L Urine Color Pale yellow Urine Appearance Clear Urine pH 5 (4.5-8.0) Urine Specific [place] 1.005 (1.005-1.035) Urine Protein 2+ (NEGATIVE) H Urine Glucose (UA) Negative (NEGATIVE) Urine Ketones Negative (NEGATIVE) Urine Blood Negative (NEGATIVE) Urine Nitrite Negative (NEGATIVE) Urine Bilirubin Negative (NEGATIVE) Urine Urobilinogen Normal MG/DL (0.0-1.0) Urine Leukocyte Esterase 2+ (NEGATIVE) H Urine RBC 0-2 /HPF (0 - 2) Urine WBC 2-4 /HPF (0 - 2) Urine Squamous Epithelial Cells Few /LPF (NONE/OCC) Urine Bacteria Few /HPF (NONE) Triglycerides Level 21 MG/DL (30-150) L Cholesterol Level 145 MG/DL (< 200) LDL Cholesterol 73 mg/dL (<100) HDL Cholesterol 78 MG/DL (40-60) H Cholesterol/HDL Ratio 1.9 (3.3-4.4) L Lipase 175 U/L (73-393) Thyroid Stimulating Hormone (TSH) 1.174 uiU/mL (0.358-3.740) Microbiology Date/Time Source Procedure Growth Status 04/14/18 19:00 Nasal Nares Influenza Types A,B Antigen (KEVIN) - Final Complete Height (Feet): 5 Height (Inches): 3.00 Weight (Pounds): 162 Medications Current Medications Medications (Trade) Dose Ordered Sig/Gelacio Route PRN Reason Start Time Stop Time Status Last Admin Dose Admin Acetaminophen (Tylenol) 650 mg Q4H PRN RECTAL fever 04/14/18 22:15 05/14/18 22:14 Barium Sulfate (Readi-Cat 2) 450 ml NOW PRN ORAL Radiology Procedure 04/15/18 09:15 04/17/18 09:02 Bisacodyl (Dulcolax) 10 mg DAILYPRN PRN RECTAL Constipation 04/14/18 22:15 05/14/18 22:14 Dextrose (Dextrose 50%) 25 ml Q30M PRN IV Hypoglycemia 04/15/18 07:05 05/15/18 07:04 Dextrose (Dextrose 50%) 50 ml Q30M PRN IV Hypoglycemia 04/15/18 03:15 05/15/18 03:14 Dextrose/Sodium Chloride 1,000 ml @ 50 mls/hr Q20H IV 04/14/18 23:11 05/14/18 23:10 04/14/18 23:40 Diphenhydramine HCl (Benadryl) 25 mg Q6H PRN ORAL Itching/Pruritis 04/14/18 22:15 05/14/18 22:14 Docusate Sodium (Colace) 100 mg EVERY 12 HOURS ORAL 04/15/18 09:00 05/15/18 08:59 04/15/18 08:15 Insulin Aspart (NovoLOG) EVERY 6 HOURS SUBQ 04/15/18 08:00 05/15/18 07:59 04/15/18 08:26 Morphine Sulfate (Morphine Sulfate) 1 mg EVERY 3 HOURS PRN IVP For Pain 04/14/18 22:15 04/21/18 22:14 Morphine Sulfate (Morphine Sulfate) 2 mg EVERY 3 HOURS PRN IVP Moderate Pain (Pain Scale 4-6) 04/14/18 22:15 04/21/18 22:14 Ondansetron HCl (Zofran) 4 mg Q6H PRN IVP Nausea & Vomiting 04/14/18 22:15 05/14/18 22:14 Pantoprazole (Protonix) 40 mg DAILY IV 04/15/18 09:00 05/15/18 08:59 04/15/18 08:15 Assessment/Plan Problem List: (1) Pneumonia ICD Codes: J18.9 - Pneumonia, unspecified organism SNOMED: 353809082 (2) Encephalopathy due to metabolic factor or toxin SNOMED: 559686447 (3) Decubitus ulcer of sacral region, unstageable ICD Codes: L89.150 - Pressure ulcer of sacral region, unstageable SNOMED: 355795029, 393082603 (4) Hematoma ICD Codes: T14.8XXA - Other injury of unspecified body region, initial encounter SNOMED: 851305453 (5) Hypoglycemia ICD Codes: E16.2 - Hypoglycemia, unspecified SNOMED: 453195496 (6) Mass of right thigh ICD Codes: R22.41 - Localized swelling, mass and lump, right lower limb SNOMED: 502286192 (7) Abnormal LFTs ICD Codes: R94.5 - Abnormal results of liver function studies SNOMED: 237808674 (8) MARK (acute kidney injury) ICD Codes: N17.9 - Acute kidney failure, unspecified SNOMED: 52597331 (9) CKD (chronic kidney disease) ICD Codes: N18.9 - Chronic kidney disease, unspecified SNOMED: 374179975 (10) Shock ICD Codes: R57.9 - Shock, unspecified SNOMED: 25807658 (11) Hypertension ICD Codes: I10 - Essential (primary) hypertension SNOMED: 17441748 (12) Sepsis ICD Codes: A41.9 - Sepsis, unspecified organism SNOMED: 89008393 (13) Seizure disorder ICD Codes: G40.909 - Epilepsy, unspecified, not intractable, without status epilepticus SNOMED: 336864766 (14) Anemia ICD Codes: D64.9 - Anemia, unspecified SNOMED: 708608245 (15) PEG (percutaneous endoscopic gastrostomy) status ICD Codes: Z93.1 - Gastrostomy status SNOMED: 170805777, 084154292 (16) shelter resident ICD Codes: Z59.3 - Problems related to living in residential institution SNOMED: 289242058 Assessment/Plan Optimize pulmonary hygiene/mobilize as tolerated PRN O2 PRN HHN's Start Zosyn F/U Cx's F/U R groin mass US IVF Monitor electrolytes and renal function Wound care TF's DVT Px: Hep SQ DNAR/DNI, continue to discuss GOC, consider supportive care evaluation Javon Gan MD Apr 15, 2018 10:25
[2018-04-15] MEDS ORDERED: Heparin 5000 units/ml inj SUBQ SCH ×2 (12:00→21:00)
[2018-04-15] MEDS: Piperacillin/Tazobactam 2.25 GM in D5W 55 ML IVPB SCH ×2 (12:39→21:55)
--- NOTE | 2018-04-15 13:17 | General Surgery Progress Note ---
General Surgery-Progress Note Subjective Symptoms: improved Additional Comments temp better. labs improved pending ultrasound Objective Last 24 Hour Vital Signs Date Time Temp Pulse Resp B/P (MAP) Pulse Ox O2 Delivery O2 Flow Rate FiO2 04/15/18 08:00 Nasal Cannula 2.0 04/15/18 08:00 76 04/15/18 04:34 Room Air 2.0 04/15/18 04:00 69 04/15/18 00:00 97.4 65 24 139/52 (81) 98 04/15/18 00:00 60 04/14/18 23:03 Nasal Cannula 2.0 04/14/18 21:45 97.4 54 24 143/59 (87) 100 04/14/18 21:35 98.1 54 18 129/53 97 Nasal Cannula 4.0 04/14/18 21:15 98.1 54 18 129/53 97 Nasal Cannula 4.0 04/14/18 19:45 93.3 50 18 127/46 97 Nasal Cannula 4.0 04/14/18 18:25 93.3 52 18 115/41 99 Nasal Cannula 4.0 04/14/18 18:24 52 20 Nasal Cannula 4.0 04/14/18 18:14 52 20 131/92 94 Nasal Cannula 4.0 I&O Intake and Output 04/14/18 04/15/18 19:00 07:00 Intake Total 240 ml Output Total 800 ml Balance -560 ml Intake Free Water 30 ml Tube Feeding 210 ml Output Urine Total 800 ml # Voids 1 Dressing: other Wound: other Drains: other Cardiovascular: RSR Respiratory: decreased breath sounds Abdomen: soft, flat, present bowel sounds Extremities: other Laboratory Tests Test 04/14/18 18:45 04/14/18 19:00 04/15/18 03:30 White Blood Count 13.8 K/UL (4.8-10.8) H 10.6 K/UL (4.8-10.8) Red Blood Count 3.35 M/UL (4.20-5.40) L 3.34 M/UL (4.20-5.40) L Hemoglobin 9.6 G/DL (12.0-16.0) L 9.6 G/DL (12.0-16.0) L Hematocrit 29.1 % (37.0-47.0) L 29.3 % (37.0-47.0) L Mean Corpuscular Volume 87 FL (80-99) 88 FL (80-99) Mean Corpuscular Hemoglobin 28.6 PG (27.0-31.0) 28.8 PG (27.0-31.0) Mean Corpuscular Hemoglobin Concent 32.9 G/DL (32.0-36.0) 32.8 G/DL (32.0-36.0) Red Cell Distribution Width 13.3 % (11.6-14.8) 13.6 % (11.6-14.8) Platelet Count 248 K/UL (150-450) 225 K/UL (150-450) Mean Platelet Volume 7.6 FL (6.5-10.1) 7.7 FL (6.5-10.1) Neutrophils (%) (Auto) % (45.0-75.0) 78.0 % (45.0-75.0) H Lymphocytes (%) (Auto) % (20.0-45.0) 12.5 % (20.0-45.0) L Monocytes (%) (Auto) % (1.0-10.0) 8.1 % (1.0-10.0) Eosinophils (%) (Auto) % (0.0-3.0) 0.8 % (0.0-3.0) Basophils (%) (Auto) % (0.0-2.0) 0.8 % (0.0-2.0) Differential Total Cells Counted 100 Neutrophils % (Manual) 81 % (45-75) H Lymphocytes % (Manual) 9 % (20-45) L Monocytes % (Manual) 6 % (1-10) Eosinophils % (Manual) 3 % (0-3) Basophils % (Manual) 1 % (0-2) Band Neutrophils 0 % (0-8) Platelet Estimate Adequate Platelet Morphology Normal Hypochromasia 1+ Anisocytosis 1+ Prothrombin Time 10.7 SEC (9.30-11.50) 10.5 SEC (9.30-11.50) Prothromb Time International Ratio 1.0 (0.9-1.1) 1.0 (0.9-1.1) Activated Partial Thromboplast Time 30 SEC (23-33) 30 SEC (23-33) Sodium Level 138 MMOL/L (136-145) Potassium Level 4.3 MMOL/L (3.5-5.1) Chloride Level 104 MMOL/L (98-107) Carbon Dioxide Level 27 MMOL/L (21-32) Anion Gap 7 mmol/L (5-15) Blood Urea Nitrogen 80 mg/dL (7-18) H Creatinine 2.3 MG/DL (0.55-1.30) H Estimat Glomerular Filtration Rate mL/min (>60) Glucose Level 78 MG/DL (74-106) Lactic Acid Level 1.00 mmol/L (0.4-2.0) Calcium Level 8.9 MG/DL (8.5-10.1) Phosphorus Level 4.5 MG/DL (2.5-4.9) Magnesium Level 3.2 MG/DL (1.8-2.4) H Total Bilirubin 0.2 MG/DL (0.2-1.0) Aspartate Amino Transf (AST/SGOT) 25 U/L (15-37) Alanine Aminotransferase (ALT/SGPT) 27 U/L (12-78) Alkaline Phosphatase 206 U/L (46-116) H Total Creatine Kinase 61 U/L (26-308) Creatine Kinase MB 1.1 NG/ML (0.0-3.6) Creatine Kinase MB Relative Index 1.8 Troponin I 0.035 ng/mL (0.000-0.056) 0.032 ng/mL (0.000-0.056) Pro-B-Type Natriuretic Peptide 2418 pg/mL (0-125) H Total Protein 7.5 G/DL (6.4-8.2) Albumin 2.4 G/DL (3.4-5.0) L Globulin 5.1 g/dL Albumin/Globulin Ratio 0.5 (1.0-2.7) L Urine Color Pale yellow Urine Appearance Clear Urine pH 5 (4.5-8.0) Urine Specific [place]aud 1.005 (1.005-1.035) Urine Protein 2+ (NEGATIVE) H Urine Glucose (UA) Negative (NEGATIVE) Urine Ketones Negative (NEGATIVE) Urine Blood Negative (NEGATIVE) Urine Nitrite Negative (NEGATIVE) Urine Bilirubin Negative (NEGATIVE) Urine Urobilinogen Normal MG/DL (0.0-1.0) Urine Leukocyte Esterase 2+ (NEGATIVE) H Urine RBC 0-2 /HPF (0 - 2) Urine WBC 2-4 /HPF (0 - 2) Urine Squamous Epithelial Cells Few /LPF (NONE/OCC) Urine Bacteria Few /HPF (NONE) Triglycerides Level 21 MG/DL (30-150) L Cholesterol Level 145 MG/DL (< 200) LDL Cholesterol 73 mg/dL (<100) HDL Cholesterol 78 MG/DL (40-60) H Cholesterol/HDL Ratio 1.9 (3.3-4.4) L Lipase 175 U/L (73-393) Thyroid Stimulating Hormone (TSH) 1.174 uiU/mL (0.358-3.740) Plan Problems: (1) Mass of right thigh Assessment & Plan: likely hematoma. see below (2) Hematoma Assessment & Plan: Right Thigh Hematoma. Likely from prior femoral line insertion given puncture site. Will obtain records to identify when and if line placed no signs of infection will obtain venous duplex of lower extremity and US of site to further evaluation warm compress will monitor clinically for now thank you for this consultation will follow with recs (3) Decubitus ulcer of sacral region, unstageable Assessment & Plan: Resolving Stage IV sacral decubitus ulcer 4cm x 3cm with area of fibrinous debris / sloth in center. surrounding granulation tissue. prior scar periwound healing without active infection. no odor. no signs of active infection bilateral heel ulcers / DTPI wounds present on admission and will be cared for during hospital stay. please refer to photos for details -wash wounds with NS daily -apply therahoney to sacral wound and cover with foam dressing daily and prn -heel protectors -okay to betadine heels and apply foam dressing -air mattress -turn q2 thank you Jean Marie Park Apr 15, 2018 13:17
--- NOTE | 2018-04-15 14:49 | Consultation ---
Consult Note Consult Note asked to eval for elevated BUN and Cr Patient is an 82-year-old female who presented after a decreased blood sugar. The patient was noted to be somewhat more somnolent than usual. Patient had been sent in from custodial. Patient was noted to have low blood sugar in the 20s initially. The patient had been the given medications and subsequently had repeat blood sugar in the 70s. The patient prior history of the right sided leg swelling. The patient was noted to be the okay for CPR and DO NOT INTUBATE. The patient had been followed by Allergies: PENICILLINS (Unverified Allergy, Mild, 12/04/12) Past Medical History: No History, Except For Hx Cardiac Problems: No - hypokalemia, dehydration, hyperlipidemia Hx Hypertension: Yes Hx Diabetes: Yes Hx Gastrointestinal Problems: No - dysphagia, g-tube Hx Dialysis: No - chronic kidney failure Hx Neurological Problems: No - muscle weakness, encephalopathy 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 Hx Seizures: Yes examined data reviewed discussed with son Assessment/Plan acute on chronic renal failure: Dehydration DM / Proteinuria / HypoAlbuminemia Encephalopathy due to metabolic factor or toxin Hypoglycemia Anemia Decubitus ulcer of sacral region, unstageable PEG (percutaneous endoscopic gastrostomy) status Hydrate- Monitor BS- Anemia conn avoid Nephrotoxics Monitor renal parameters Phil Ortiz MD Apr 15, 2018 14:49
[2018-04-15] MEDS ORDERED: DiphenhydrAMINE 25mg/10ml Elixir GT PRN (16:15)
[2018-04-15] MEDS ORDERED: D5NS 1,000 ML IV SCH (16:15)
[2018-04-15] MEDS ORDERED: Morphine Sulfate 2mg/ml Inj IVP PRN (16:30)
--- NOTE | 2018-04-15 16:30 | Consultation ---
DATE OF CONSULTATION: 04/15/2018 INFECTIOUS DISEASES CONSULTATION CONSULTING PHYSICIAN: Wilder French M.D. PRIMARY ATTENDING PHYSICIAN: Krzysztof Schneider M.D. REASON FOR CONSULTATION: Sepsis and pneumonia. HISTORY OF PRESENT ILLNESS: This is an 82-year-old female, who is a retirement resident admitted on 04/14/2018 because of hypoglycemic episode. She had blood sugar of 22 in retirement, was hypothermic with a temperature of 93.3, bradycardic with heart rate of 52, right groin mass that was seen by a surgeon. PAST MEDICAL HISTORY: Significant for diabetes mellitus, hypertension, dementia, chronic kidney disease, unstageable sacral ulcer and bilateral heel ulcer, has anemia, status post gastrostomy status, legally blind, seizure disorder, was recently in the hospital, on previous admission she had sepsis with Ling glabrata, although the definite source was not found. ALLERGIES: The patient is allergic to penicillin, but tolerated Zosyn. MEDICATIONS: Getting heparin, Protonix, Colace, insulin, morphine sulfate, Bisacodyl, diphenhydramine. SOCIAL HISTORY: detention resident. No history of alcohol, drug abuse, or smoking. No other history obtainable. PHYSICAL EXAMINATION: VITAL SIGNS: Temperature 97.4, pulse 60, blood pressure 139/52. GENERAL APPEARANCE: No acute distress. HEENT: Head and neck, dry mouth that is slightly whitish. HEART: Normal rate. LUNGS: Clear. ABDOMEN: Soft. G-tube in place. No leaking. EXTREMITIES: No edema. SKIN: Sacral ulcer and heel ulcer that does not seem to be infected. LABORATORY AND DIAGNOSTIC DATA: Sodium 138, potassium 4.3, chloride 104, bicarb 27, BUN 80, creatinine 2.3. WBC at the time of admission was 13.8, now is 10.6, hemoglobin 9.6, hematocrit 29.3, and platelet is 225. UA, wbc's of 2 to 4, nitrite negative. Chest x-ray showed blunting of costophrenic angle, bilateral pleural effusion with atelectasis versus infiltrate. IMPRESSION: 1. Sepsis. 2. Systemic inflammatory response syndrome with hypoglycemia, hypothermia, bradycardia, leukocytosis. The patient have may have pneumonia. 3. Diabetes mellitus. 4. Chronic kidney disease. 5. Anemia. 6. Seizure disorder. 7. Right groin mass that that according to the surgeon is hematoma. RECOMMENDATION: We will continue with Zosyn. We will follow up the cultures. At the end of my exam, I thank Dr. Schneider for involving me in the care of this patient. Wilder French M.D. DR: Malcolm JOB#: [id number] CC:
--- NOTE | 2018-04-15 17:45 | Consultation ---
DATE OF CONSULTATION: 04/15/2018 CONSULTING PHYSICIAN: Ruben Post M.D. CHIEF COMPLAINT: Anemia and dysphagia. HISTORY OF PRESENT ILLNESS: This is an 82-year-old intermediate patient, unable to give any history, was transferred to the hospital with blood sugars, weakness. She was found to be anemic. GI consult requested for evaluation. PAST MEDICAL HISTORY: 1. History of anemia, chronic. 2. Chronic renal insufficiency. 3. Dysphagia, requiring G-tube. 4. Gallstones. 5. Seizure disorder. 6. Hypertension. 7. Diabetes. 8. Decubitus ulcerations. 9. Encephalopathy. ALLERGIES: To penicillin. MEDICATIONS: Please see medication reconciliation list. SOCIAL HISTORY: Currently lives in a intermediate. No history of tobacco, alcohol, or drug abuse. FAMILY HISTORY: Noncontributory. REVIEW OF SYSTEMS: Unable to obtain. PHYSICAL EXAMINATION: VITAL SIGNS: Temperature is 97.4, pulse 69, respirations 20, and blood pressure is 139/52. HEENT: Normocephalic and atraumatic. Mild pale conjunctivae. NECK: Supple. No evidence of lymphadenopathy. CARDIOVASCULAR: Regular rate and rhythm. Plus S1 and S2. LUNGS: Decreased breath sounds bilaterally based on supine exam. ABDOMEN: Soft. G-tube in place. No rebound. No guarding. No peritoneal sign. EXTREMITIES: No cyanosis, no clubbing, no edema. LABORATORY DATA: White count is 10, hemoglobin 9.6, hematocrit 29, and platelet count is 225. ASSESSMENT AND PLAN: This is an 82-year-old female with numerous medical problems. From GI standpoint, the patient has anemia that seems to be chronic most likely secondary to renal insufficiency. No evidence of any active bleeding. The patient has had a workup in the past with iron panel being normal. Plan to send the stool for OB. Check for CEA. Hold off GI procedure at this time. The patient has questionable hematoma, seen, followed by a surgeon. We are going to order a noncontrast CT of the abdomen to evaluate for both right groin area mass and questionable mass and also rule out hematoma. Meanwhile, we are going to change her G-tube from Nepro to Glucerna 1.2 and we will monitor her blood sugars. I want to thank, Dr. Schneider, for this kind referral. Ruben Estela Post DR: HENRY JOB#: [id number] CC: Krzysztof Schneider M.D.; Fax#: [phone]
[2018-04-15] MEDS ORDERED: Acetaminophen 650 MG SUPP RECTAL PRN (18:15)
[2018-04-15 20:00] VITALS: BP 168/1
--- NOTE | 2018-04-15 20:00 | History and Physical Report ---
DATE OF ADMISSION: 04/14/2018 HISTORY OF PRESENT ILLNESS: The patient is admitted to [facility] because of hypoglycemia, congestion, bradycardia, hypoxia, acute renal failure on top of chronic renal failure. The patient also has history of COPD and DVT in the past, was hypoxic at SNF, admitted to [facility] for those reasons. The patient is nonverbal, cannot get any history from the patient. PAST MEDICAL HISTORY: Chronic renal insufficiency, history of organic brain syndrome, advanced dementia, iron-deficiency anemia, NIDDM, history of multiple decubitus wounds, history of seizure disorder, GERD, hypertension, history of constipation, history of anemia. MEDICATIONS: Basically Epogen, aspirin, vitamin C, insulin, Prevacid, Keppra, multivitamin, nifedipine, zinc, Keppra, metoprolol, multivitamin. ALLERGIES: To penicillin. PAST SURGICAL HISTORY: Debridement of wounds as well as PEG. FAMILY HISTORY: Unable to obtain. SOCIAL HISTORY: Unable to obtain. REVIEW OF SYSTEMS: Unable to obtain. PHYSICAL EXAMINATION: VITAL SIGNS: Temperature is 97.4, pulse 54, blood pressure 143/59. HEENT: PERRLA. NECK: Supple. CHEST: Bibasilar rales. CARDIOVASCULAR: Bradycardic. GASTROINTESTINAL: G-tube site is intact. Abdomen is distended. SKIN: Also multiple decubitus wounds, please refer to the nursing notes for details. The patient is bedbound. EXTREMITIES: Contractures. Reflexes equal in both sides. LABORATORY DATA: WBC of 13.8, hemoglobin 9.6, and platelets of 248. Sodium 138, potassium 4.3, chloride 104, CO2 27, BUN of 80, creatinine of 2.3, glucose of 78, magnesium 3.2. ASSESSMENT AND PLAN: 1. Hypoglycemia. 2. Congestion. 3. Bradycardia. 4. Acute renal failure on top of chronic renal failure. 5. . 6. Hypoxic at SNF. I have admitted her for those reasons to [facility] and I have consulted Dr. Gan, Dr. Post, Dr. Ortiz, Dr. Nair, Dr. Badillo, Dr. Park, and Dr. French for those treatment and diagnosis of the above-mentioned diagnoses and treatment. Krzysztof Schneider M.D. DR: Jada JOB#: [id number] CC:
[2018-04-15] MEDS: Heparin 5000 units/ml inj SUBQ SCH (20:59)
[2018-04-15] MEDS ORDERED: Docusate 100mg/10ml Liq GT SCH (21:00)
[2018-04-16] VITALS (7 sets, daily range): BP systolic 132–184; BP diastolic 58–79
[2018-04-16] MEDS: NovoLOG Insulin Flexpen SUBQ SCH ×3 (06:18→17:58)
[2018-04-16] MEDS: Piperacillin/Tazobactam 2.25 GM in D5W 55 ML IVPB SCH ×4 (06:19→21:29)
[2018-04-16 06:40] LABS: EOSINOPHILS % (AUTO) 4.7 % (0.0-3.0); HEMATOCRIT 28.1 % (37.0-47.0); LYMPHOCYTES % (AUTO) 16.6 % (20.0-45.0); MEAN CORPUSCULAR VOLUME 89 FL (80-99); MONOCYTES % (AUTO) 9.3 % (1.0-10.0); NEUTROPHILS % (AUTO) 68.3 % (45.0-75.0); PLATELET COUNT 228 K/UL (150-450); RED BLOOD COUNT 3.17 M/UL (4.20-5.40); WHITE BLOOD COUNT 8.8 K/UL (4.8-10.8)
[2018-04-16 06:59] LABS: ALANINE AMINOTRANSFERASE 29 U/L (12-78); ALBUMIN 2.4 G/DL (3.4-5.0); ALBUMIN/GLOBULIN RATIO 0.5 (1.0-2.7); ALKALINE PHOSPHATASE 203 U/L (46-116); ANION GAP 8 mmol/L (5-15); ASPARTATE AMINO TRANSFERASE 30 U/L (15-37); BILIRUBIN,TOTAL 0.3 MG/DL (0.2-1.0); BLOOD UREA NITROGEN 67 mg/dL (7-18); CALCIUM 8.6 MG/DL (8.5-10.1); CARBON DIOXIDE 25 MMOL/L (21-32); CHLORIDE 108 MMOL/L (98-107); POTASSIUM 5.4 MMOL/L (3.5-5.1); SODIUM 141 MMOL/L (136-145)
--- NOTE | 2018-04-16 07:22 | General Progress Note ---
Assessment/Plan Problem List: (1) Hypoglycemia ICD Codes: E16.2 - Hypoglycemia, unspecified SNOMED: 461825375 (2) CKD (chronic kidney disease) ICD Codes: N18.9 - Chronic kidney disease, unspecified SNOMED: 360286369 (3) Encephalopathy due to metabolic factor or toxin SNOMED: 750792213 (4) Hypertension ICD Codes: I10 - Essential (primary) hypertension SNOMED: 80032856 Assessment/Plan continue TF continue IVF NISS low dose every 6 hours Subjective ROS Limited/Unobtainable: Yes Allergies: Coded Allergies: PENICILLINS (Unverified Allergy, Mild, 12/04/12) Subjective events noted Objective Last 24 Hour Vital Signs Date Time Temp Pulse Resp B/P (MAP) Pulse Ox O2 Delivery O2 Flow Rate FiO2 04/16/18 06:31 142/58 (86) 04/16/18 04:00 97.9 84 19 172/73 (106) 97 84 04/16/18 00:00 98.3 77 20 173/65 (101) 100 77 04/15/18 21:00 Nasal Cannula 2.0 04/15/18 21:00 Nasal Cannula 2.0 04/15/18 20:00 98.1 74 19 168/1 (56) 100 74 04/15/18 16:00 77 04/15/18 16:00 Nasal Cannula 2.0 04/15/18 12:00 80 04/15/18 12:00 Nasal Cannula 2.0 04/15/18 08:00 Nasal Cannula 2.0 04/15/18 08:00 76 Intake and Output 04/15/18 04/16/18 19:00 07:00 Intake Total 1295 ml 350 ml Output Total 800 ml 800 ml Balance 495 ml -450 ml Intake Free Water 150 ml 100 ml IV Total 560 ml Tube Feeding 585 ml 250 ml Output Urine Total 800 ml 800 ml Laboratory Tests 04/16/18 06:10: White Blood Count 8.8, Red Blood Count 3.17L, Hemoglobin 9.0L, Hematocrit 28.1L , Mean Corpuscular Volume 89, Mean Corpuscular Hemoglobin 28.3, Mean Corpuscular Hemoglobin Concent 32.0, Red Cell Distribution Width 14.0, Platelet Count 228, Mean Platelet Volume 7.5, Neutrophils (%) (Auto) 68.3, Lymphocytes (% ) (Auto) 16.6L, Monocytes (%) (Auto) 9.3, Eosinophils (%) (Auto) 4.7H, Basophils (%) (Auto) 1.0, Sodium Level 141, Potassium Level 5.4H, Chloride Level 108H, Carbon Dioxide Level 25, Anion Gap 8, Blood Urea Nitrogen 67H, Creatinine 2.0H, Estimat Glomerular Filtration Rate , Glucose Level 137H, Hemoglobin A1c 6.6H, Uric Acid [Pending], Calcium Level 8.6, Phosphorus Level [ Pending], Magnesium Level [Pending], Total Bilirubin 0.3, Gamma Glutamyl Transpeptidase [Pending], Aspartate Amino Transf (AST/SGOT) 30, Alanine Aminotransferase (ALT/SGPT) 29, Alkaline Phosphatase 203H, Total Creatine Kinase [Pending], Troponin I [Pending], Pro-B-Type Natriuretic Peptide [Pending] , Total Protein 7.3, Albumin 2.4L, Globulin 4.9, Albumin/Globulin Ratio 0.5L, Carcinoembryonic Antigen [Pending], Vitamin B12 Level [Pending], Thyroid Stimulating Hormone (TSH) 1.312 Height (Feet): 5 Height (Inches): 3.00 Weight (Pounds): 162 General Appearance: no apparent distress Neck: normal alignment Cardiovascular: normal rate Respiratory/Chest: decreased breath sounds Abdomen: normal bowel sounds Objective Current Medications Medications (Trade) Dose Ordered Sig/Gelacio Route PRN Reason Start Time Stop Time Status Last Admin Dose Admin Acetaminophen (Tylenol) 650 mg Q4H PRN RECTAL fever (temp>100.5F) 04/15/18 18:15 05/14/18 22:14 Barium Sulfate (Readi-Cat 2) 450 ml NOW PRN ORAL Radiology Procedure 04/15/18 16:15 04/17/18 09:14 Bisacodyl (Dulcolax) 10 mg DAILYPRN PRN RECTAL Constipation 04/15/18 16:15 05/14/18 16:14 Dextrose (Dextrose 50%) 25 ml Q30M PRN IV Hypoglycemia 04/15/18 16:30 05/15/18 16:16 Dextrose (Dextrose 50%) 50 ml Q30M PRN IV hypoglycemia 04/15/18 16:30 05/15/18 16:29 Dextrose/Sodium Chloride 1,000 ml @ 50 mls/hr Q20H IV 04/15/18 16:15 05/14/18 16:14 04/15/18 17:56 Diphenhydramine HCl (Benadryl) 25 mg Q6H PRN GT Itching/Pruritis 04/15/18 16:15 05/14/18 22:14 Docusate Sodium (Colace) 100 mg EVERY 12 HOURS GT 04/15/18 21:00 05/15/18 08:59 04/15/18 20:58 Heparin Sodium (Porcine) (Heparin 5000 units/ml) 5,000 units EVERY 12 HOURS SUBQ 04/15/18 21:00 05/15/18 20:59 04/15/18 20:59 Insulin Aspart (NovoLOG) EVERY 6 HOURS SUBQ 04/15/18 18:00 05/15/18 07:59 04/16/18 06:18 Morphine Sulfate (Morphine Sulfate) 1 mg Q3H PRN IVP Breakthrough Pain 04/15/18 16:30 04/22/18 16:29 Morphine Sulfate (Morphine Sulfate) 2 mg Q3H PRN IVP Moderate Pain (Pain Scale 4-6) 04/15/18 16:30 04/22/18 16:29 Ondansetron HCl (Zofran) 4 mg Q6H PRN IVP Nausea & Vomiting 04/15/18 16:15 05/14/18 22:14 Pantoprazole (Protonix) 40 mg DAILY IV 04/16/18 09:00 05/15/18 08:59 Piperacillin Sod/ Tazobactam Sod 2.25 gm/Dextrose 55 ml @ 110 mls/hr Q8HR IVPB 04/15/18 22:00 04/22/18 21:59 04/16/18 06:19 Item Value Date Time Bedside Blood Glucose 135 mg/dl H 04/16/18 0618 Bedside Blood Glucose 113 mg/dl 04/15/18 2325 Bedside Blood Glucose 206 mg/dl H 04/15/18 1759 Bedside Blood Glucose 217 mg/dl H 04/15/18 1200 Bedside Blood Glucose 178 mg/dl H 04/15/18 0826 Bedside Blood Glucose 153 mg/dl H 04/15/18 0400 Awais Badillo MD Apr 16, 2018 07:22
[2018-04-16 07:48] LABS: CREATINE KINASE 61 U/L (26-308); GAMMA GLUTAMYL TRANSPEPTIDASE 205 U/L (5-85); PHOSPHORUS 4.7 MG/DL (2.5-4.9)
[2018-04-16 08:29] LABS: FERRITIN 490 NG/ML (8-388)
[2018-04-16 08:57] LABS: % IRON SATURATION 37 % (15-50); IRON 69 ug/dL (50-175); TOTAL IRON BINDING CAPACITY 187 ug/dL (250-450)
--- NOTE | 2018-04-16 09:10 | Pulmonology Progress Note ---
Assessment/Plan Problems: (1) Pneumonia (2) Encephalopathy due to metabolic factor or toxin (3) Decubitus ulcer of sacral region, unstageable (4) Hematoma (5) Hypoglycemia (6) Mass of right thigh (7) Abnormal LFTs (8) MARK (acute kidney injury) (9) CKD (chronic kidney disease) (10) Shock (11) Hypertension (12) Sepsis (13) Seizure disorder (14) Anemia (15) PEG (percutaneous endoscopic gastrostomy) status (16) half-way resident Assessment/Plan Optimize pulmonary hygiene/mobilize as tolerated PRN O2 PRN HHN's Continue Zosyn (D2) per ID F/U Cx's F/U R groin mass US and CT CAP IVF Monitor electrolytes and renal function Wound care TF's DVT Px: Hep SQ DNAR/DNI, continue to discuss GOC, consider supportive care evaluation Subjective Allergies: Coded Allergies: PENICILLINS (Unverified Allergy, Mild, 12/04/12) Subjective AFVSS, O2 needs stable, TTF CT pending, tumor markers pending US done result pending No distress, no cough, no FC, chet TF Objective Last 24 Hour Vital Signs Date Time Temp Pulse Resp B/P (MAP) Pulse Ox O2 Delivery O2 Flow Rate FiO2 04/16/18 06:31 142/58 (86) 04/16/18 04:00 97.9 84 19 172/73 (106) 97 84 04/16/18 00:00 98.3 77 20 173/65 (101) 100 77 04/15/18 21:00 Nasal Cannula 2.0 04/15/18 21:00 Nasal Cannula 2.0 04/15/18 20:00 98.1 74 19 168/1 (56) 100 74 04/15/18 16:00 77 04/15/18 16:00 Nasal Cannula 2.0 04/15/18 12:00 80 04/15/18 12:00 Nasal Cannula 2.0 Intake and Output 04/15/18 04/16/18 19:00 07:00 Intake Total 1295 ml 350 ml Output Total 800 ml 800 ml Balance 495 ml -450 ml Intake Free Water 150 ml 100 ml IV Total 560 ml Tube Feeding 585 ml 250 ml Output Urine Total 800 ml 800 ml General Appearance: cachetic HEENT: normocephalic, atraumatic, anicteric, mucous membranes moist Respiratory/Chest: rhonchi Cardiovascular: normal peripheral pulses, normal rate, regular rhythm Abdomen: normal bowel sounds, soft, non tender, no organomegaly, non distended , no mass, other - GT Extremities: no cyanosis, no clubbing, no edema, other - contracted Microbiology Date/Time Source Procedure Growth Status 04/14/18 18:50 Blood Blood Culture - Preliminary NO GROWTH AFTER 24 HOURS Resulted 04/14/18 18:45 Blood Blood Culture - Preliminary NO GROWTH AFTER 24 HOURS Resulted 04/14/18 19:00 Nasal Nares Influenza Types A,B Antigen (KEVIN) - Final Complete 04/14/18 21:00 Rectum Received Laboratory Tests 04/16/18 06:10: White Blood Count 8.8, Red Blood Count 3.17L, Hemoglobin 9.0L, Hematocrit 28.1L , Mean Corpuscular Volume 89, Mean Corpuscular Hemoglobin 28.3, Mean Corpuscular Hemoglobin Concent 32.0, Red Cell Distribution Width 14.0, Platelet Count 228, Mean Platelet Volume 7.5, Neutrophils (%) (Auto) 68.3, Lymphocytes (% ) (Auto) 16.6L, Monocytes (%) (Auto) 9.3, Eosinophils (%) (Auto) 4.7H, Basophils (%) (Auto) 1.0, Sodium Level 141, Potassium Level 5.4H, Chloride Level 108H, Carbon Dioxide Level 25, Anion Gap 8, Blood Urea Nitrogen 67H, Creatinine 2.0H, Estimat Glomerular Filtration Rate , Glucose Level 137H, Hemoglobin A1c 6.6H, Uric Acid 5.8, Calcium Level 8.6, Phosphorus Level 4.7, Magnesium Level 2.9H, Iron Level [Pending], Unsaturated Iron Binding [Pending], Ferritin 490H, Total Bilirubin 0.3, Gamma Glutamyl Transpeptidase 205H, Aspartate Amino Transf (AST/SGOT) 30, Alanine Aminotransferase (ALT/SGPT) 29, Alkaline Phosphatase 203H, Total Creatine Kinase 61, Troponin I 0.031, Pro-B- Type Natriuretic Peptide 2483H, Total Protein 7.3, Albumin 2.4L, Globulin 4.9, Albumin/Globulin Ratio 0.5L, Carcinoembryonic Antigen [Pending], Vitamin B12 Level 1872H, Folate [Pending], Thyroid Stimulating Hormone (TSH) 1.312 Current Medications Medications (Trade) Dose Ordered Sig/Gelacio Route PRN Reason Start Time Stop Time Status Last Admin Dose Admin Acetaminophen (Tylenol) 650 mg Q4H PRN RECTAL fever (temp>100.5F) 04/15/18 18:15 05/14/18 22:14 Amlodipine Besylate (Norvasc) 10 mg DAILY ORAL 04/17/18 09:00 05/17/18 08:59 Barium Sulfate (Readi-Cat 2) 450 ml NOW PRN ORAL Radiology Procedure 04/15/18 16:15 04/17/18 09:14 Bisacodyl (Dulcolax) 10 mg DAILYPRN PRN RECTAL Constipation 04/15/18 16:15 05/14/18 16:14 Clonidine HCl (Catapres Tab) 0.1 mg Q4H PRN ORAL bp over 165 syst 04/16/18 08:00 05/16/18 07:59 Dextrose (Dextrose 50%) 25 ml Q30M PRN IV Hypoglycemia 04/15/18 16:30 05/15/18 16:16 Dextrose (Dextrose 50%) 50 ml Q30M PRN IV hypoglycemia 04/15/18 16:30 05/15/18 16:29 Dextrose/Sodium Chloride 1,000 ml @ 50 mls/hr Q20H IV 04/15/18 16:15 05/14/18 16:14 04/15/18 17:56 Diphenhydramine HCl (Benadryl) 25 mg Q6H PRN GT Itching/Pruritis 04/15/18 16:15 05/14/18 22:14 Docusate Sodium (Colace) 100 mg EVERY 12 HOURS GT 04/15/18 21:00 05/15/18 08:59 04/15/18 20:58 Heparin Sodium (Porcine) (Heparin 5000 units/ml) 5,000 units EVERY 12 HOURS SUBQ 04/15/18 21:00 05/15/18 20:59 04/15/18 20:59 Insulin Aspart (NovoLOG) EVERY 6 HOURS SUBQ 04/15/18 18:00 05/15/18 07:59 04/16/18 06:18 Morphine Sulfate (Morphine Sulfate) 1 mg Q3H PRN IVP Breakthrough Pain 04/15/18 16:30 04/22/18 16:29 Morphine Sulfate (Morphine Sulfate) 2 mg Q3H PRN IVP Moderate Pain (Pain Scale 4-6) 04/15/18 16:30 04/22/18 16:29 Ondansetron HCl (Zofran) 4 mg Q6H PRN IVP Nausea & Vomiting 04/15/18 16:15 05/14/18 22:14 Pantoprazole (Protonix) 40 mg DAILY IV 04/16/18 09:00 05/15/18 08:59 Piperacillin Sod/ Tazobactam Sod 2.25 gm/Dextrose 55 ml @ 110 mls/hr Q8HR IVPB 04/15/18 22:00 04/22/18 21:59 04/16/18 06:19 Javon Gan MD Apr 16, 2018 09:10
--- NOTE | 2018-04-16 10:14 | Nephrology Progress Note ---
Assessment/Plan Problem List: (1) MARK (acute kidney injury) (2) CKD (chronic kidney disease) (3) Diabetic nephropathy (4) Hypertension Assessment acute on chronic renal failure: Dehydration HTN DM / Proteinuria / HypoAlbuminemia Encephalopathy due to metabolic factor or toxin Hypoglycemia Anemia Decubitus ulcer of sacral region, unstageable PEG (percutaneous endoscopic gastrostomy) status Plan BP meds- Hydrate- change IV to 1/2 NS Monitor BS- Anemia conn avoid Nephrotoxics Monitor renal parameters per orders Subjective ROS Limited/Unobtainable: No Constitutional: Reports: malaise, weakness, other - non verbal Objective Objective Last 24 Hour Vital Signs Date Time Temp Pulse Resp B/P (MAP) Pulse Ox O2 Delivery O2 Flow Rate FiO2 04/16/18 06:31 142/58 (86) 04/16/18 04:00 97.9 84 19 172/73 (106) 97 84 04/16/18 00:00 98.3 77 20 173/65 (101) 100 77 04/15/18 21:00 Nasal Cannula 2.0 04/15/18 21:00 Nasal Cannula 2.0 04/15/18 20:00 98.1 74 19 168/1 (56) 100 74 04/15/18 16:00 77 04/15/18 16:00 Nasal Cannula 2.0 04/15/18 12:00 80 04/15/18 12:00 Nasal Cannula 2.0 Intake and Output 04/15/18 04/16/18 19:00 07:00 Intake Total 1295 ml 350 ml Output Total 800 ml 800 ml Balance 495 ml -450 ml Intake Free Water 150 ml 100 ml IV Total 560 ml Tube Feeding 585 ml 250 ml Output Urine Total 800 ml 800 ml Laboratory Tests 04/16/18 06:10: White Blood Count 8.8, Red Blood Count 3.17L, Hemoglobin 9.0L, Hematocrit 28.1L , Mean Corpuscular Volume 89, Mean Corpuscular Hemoglobin 28.3, Mean Corpuscular Hemoglobin Concent 32.0, Red Cell Distribution Width 14.0, Platelet Count 228, Mean Platelet Volume 7.5, Neutrophils (%) (Auto) 68.3, Lymphocytes (% ) (Auto) 16.6L, Monocytes (%) (Auto) 9.3, Eosinophils (%) (Auto) 4.7H, Basophils (%) (Auto) 1.0, Sodium Level 141, Potassium Level 5.4H, Chloride Level 108H, Carbon Dioxide Level 25, Anion Gap 8, Blood Urea Nitrogen 67H, Creatinine 2.0H, Estimat Glomerular Filtration Rate , Glucose Level 137H, Hemoglobin A1c 6.6H, Uric Acid 5.8, Calcium Level 8.6, Phosphorus Level 4.7, Magnesium Level 2.9H, Iron Level 69, Total Iron Binding Capacity 187L, Percent Iron Saturation 37, Unsaturated Iron Binding 118, Ferritin 490H, Total Bilirubin 0.3, Gamma Glutamyl Transpeptidase 205H, Aspartate Amino Transf (AST/ SGOT) 30, Alanine Aminotransferase (ALT/SGPT) 29, Alkaline Phosphatase 203H, Total Creatine Kinase 61, Troponin I 0.031, Pro-B-Type Natriuretic Peptide 2483H , Total Protein 7.3, Albumin 2.4L, Globulin 4.9, Albumin/Globulin Ratio 0.5L, Carcinoembryonic Antigen [Pending], Vitamin B12 Level 1872H, Folate 61.6H, Thyroid Stimulating Hormone (TSH) 1.312 Height (Feet): 5 Height (Inches): 3.00 Weight (Pounds): 162 General Appearance: no apparent distress, lethargic Neck: limited range of motion Cardiovascular: normal rate Respiratory/Chest: decreased breath sounds Abdomen: distended Phil Ortiz MD Apr 16, 2018 10:14
[2018-04-16] MEDS: Pantoprazole Inj IV SCH (10:24)
[2018-04-16] MEDS: Heparin 5000 units/ml inj SUBQ SCH ×2 (10:26→21:00)
--- NOTE | 2018-04-16 11:05 | GI Progress Note ---
Assessment/Plan Problems: (1) Anemia ICD Codes: D64.9 - Anemia, unspecified SNOMED: 459803303 (2) Diabetic nephropathy ICD Codes: E11.21 - Type 2 diabetes mellitus with diabetic nephropathy SNOMED: 33122583, 422300036 (3) Hypoglycemia ICD Codes: E16.2 - Hypoglycemia, unspecified SNOMED: 132593751 (4) Mass of right thigh ICD Codes: R22.41 - Localized swelling, mass and lump, right lower limb SNOMED: 543862948 (5) PEG (percutaneous endoscopic gastrostomy) status ICD Codes: Z93.1 - Gastrostomy status SNOMED: 007271295, 108011976 Status: stable Status Narrative Discussed with Dr. Post. Assessment/Plan anemia most likely 2/2 chronic disease supportive care at this time OB stool r/o GI bleed monitor H&H, prn transfusions bowel regime ppi fu labs, CEA fu CT scan The patient was seen and examined at bedside and all new and available data was reviewed in the patients chart. I agree with the above findings, impression and plan. (Patient seen earlier today. Signature stamp does not reflect patient encounter time.). - Ruben Post MD Subjective Subjective limited Objective Last 24 Hour Vital Signs Date Time Temp Pulse Resp B/P (MAP) Pulse Ox O2 Delivery O2 Flow Rate FiO2 04/16/18 10:25 80 139/61 04/16/18 08:00 98.0 80 18 139/61 (87) 97 80 04/16/18 06:31 142/58 (86) 04/16/18 04:00 97.9 84 19 172/73 (106) 97 84 04/16/18 00:00 98.3 77 20 173/65 (101) 100 77 04/15/18 21:00 Nasal Cannula 2.0 04/15/18 21:00 Nasal Cannula 2.0 04/15/18 20:00 98.1 74 19 168/1 (56) 100 74 04/15/18 16:00 77 04/15/18 16:00 Nasal Cannula 2.0 04/15/18 12:00 80 04/15/18 12:00 Nasal Cannula 2.0 Intake and Output 04/15/18 04/16/18 19:00 07:00 Intake Total 1295 ml 350 ml Output Total 800 ml 800 ml Balance 495 ml -450 ml Intake Free Water 150 ml 100 ml IV Total 560 ml Tube Feeding 585 ml 250 ml Output Urine Total 800 ml 800 ml Laboratory Tests Test 04/16/18 06:10 White Blood Count 8.8 K/UL (4.8-10.8) Red Blood Count 3.17 M/UL (4.20-5.40) L Hemoglobin 9.0 G/DL (12.0-16.0) L Hematocrit 28.1 % (37.0-47.0) L Mean Corpuscular Volume 89 FL (80-99) Mean Corpuscular Hemoglobin 28.3 PG (27.0-31.0) Mean Corpuscular Hemoglobin Concent 32.0 G/DL (32.0-36.0) Red Cell Distribution Width 14.0 % (11.6-14.8) Platelet Count 228 K/UL (150-450) Mean Platelet Volume 7.5 FL (6.5-10.1) Neutrophils (%) (Auto) 68.3 % (45.0-75.0) Lymphocytes (%) (Auto) 16.6 % (20.0-45.0) L Monocytes (%) (Auto) 9.3 % (1.0-10.0) Eosinophils (%) (Auto) 4.7 % (0.0-3.0) H Basophils (%) (Auto) 1.0 % (0.0-2.0) Sodium Level 141 MMOL/L (136-145) Potassium Level 5.4 MMOL/L (3.5-5.1) H Chloride Level 108 MMOL/L (98-107) H Carbon Dioxide Level 25 MMOL/L (21-32) Anion Gap 8 mmol/L (5-15) Blood Urea Nitrogen 67 mg/dL (7-18) H Creatinine 2.0 MG/DL (0.55-1.30) H Estimat Glomerular Filtration Rate mL/min (>60) Glucose Level 137 MG/DL (74-106) H Hemoglobin A1c 6.6 % (4.3-6.0) H Uric Acid 5.8 MG/DL (2.6-7.2) Calcium Level 8.6 MG/DL (8.5-10.1) Phosphorus Level 4.7 MG/DL (2.5-4.9) Magnesium Level 2.9 MG/DL (1.8-2.4) H Iron Level 69 ug/dL (50-175) Total Iron Binding Capacity 187 ug/dL (250-450) L Percent Iron Saturation 37 % (15-50) Unsaturated Iron Binding 118 ug/dL (112-346) Ferritin 490 NG/ML (8-388) H Total Bilirubin 0.3 MG/DL (0.2-1.0) Gamma Glutamyl Transpeptidase 205 U/L (5-85) H Aspartate Amino Transf (AST/SGOT) 30 U/L (15-37) Alanine Aminotransferase (ALT/SGPT) 29 U/L (12-78) Alkaline Phosphatase 203 U/L (46-116) H Total Creatine Kinase 61 U/L (26-308) Troponin I 0.031 ng/mL (0.000-0.056) Pro-B-Type Natriuretic Peptide 2483 pg/mL (0-125) H Total Protein 7.3 G/DL (6.4-8.2) Albumin 2.4 G/DL (3.4-5.0) L Globulin 4.9 g/dL Albumin/Globulin Ratio 0.5 (1.0-2.7) L Carcinoembryonic Antigen Pending Vitamin B12 Level 1872 PG/ML (193-986) H Folate 61.6 NG/ML (8.6-58.9) H Thyroid Stimulating Hormone (TSH) 1.312 uiU/mL (0.358-3.740) Height (Feet): 5 Height (Inches): 3.00 Weight (Pounds): 162 General Appearance: WD/WN, no apparent distress, alert Cardiovascular: normal rate Respiratory/Chest: normal breath sounds, no respiratory distress Abdominal Exam: normal bowel sounds, non tender, soft Extremities: non-tender Loraine Wick NP Apr 16, 2018 11:05
--- NOTE | 2018-04-16 11:26 | Cardiac Electrophysiology PN ---
Subjective Subjective [id number] Objective Last 24 Hour Vital Signs Date Time Temp Pulse Resp B/P (MAP) Pulse Ox O2 Delivery O2 Flow Rate FiO2 04/16/18 10:25 80 139/61 04/16/18 08:00 98.0 80 18 139/61 (87) 97 80 04/16/18 06:31 142/58 (86) 04/16/18 04:00 97.9 84 19 172/73 (106) 97 84 04/16/18 00:00 98.3 77 20 173/65 (101) 100 77 04/15/18 21:00 Nasal Cannula 2.0 04/15/18 21:00 Nasal Cannula 2.0 04/15/18 20:00 98.1 74 19 168/1 (56) 100 74 04/15/18 16:00 77 04/15/18 16:00 Nasal Cannula 2.0 04/15/18 12:00 80 04/15/18 12:00 Nasal Cannula 2.0 Intake and Output 04/15/18 04/16/18 19:00 07:00 Intake Total 1295 ml 350 ml Output Total 800 ml 800 ml Balance 495 ml -450 ml Intake Free Water 150 ml 100 ml IV Total 560 ml Tube Feeding 585 ml 250 ml Output Urine Total 800 ml 800 ml Laboratory Tests Test 04/16/18 06:10 White Blood Count 8.8 K/UL (4.8-10.8) Red Blood Count 3.17 M/UL (4.20-5.40) L Hemoglobin 9.0 G/DL (12.0-16.0) L Hematocrit 28.1 % (37.0-47.0) L Mean Corpuscular Volume 89 FL (80-99) Mean Corpuscular Hemoglobin 28.3 PG (27.0-31.0) Mean Corpuscular Hemoglobin Concent 32.0 G/DL (32.0-36.0) Red Cell Distribution Width 14.0 % (11.6-14.8) Platelet Count 228 K/UL (150-450) Mean Platelet Volume 7.5 FL (6.5-10.1) Neutrophils (%) (Auto) 68.3 % (45.0-75.0) Lymphocytes (%) (Auto) 16.6 % (20.0-45.0) L Monocytes (%) (Auto) 9.3 % (1.0-10.0) Eosinophils (%) (Auto) 4.7 % (0.0-3.0) H Basophils (%) (Auto) 1.0 % (0.0-2.0) Sodium Level 141 MMOL/L (136-145) Potassium Level 5.4 MMOL/L (3.5-5.1) H Chloride Level 108 MMOL/L (98-107) H Carbon Dioxide Level 25 MMOL/L (21-32) Anion Gap 8 mmol/L (5-15) Blood Urea Nitrogen 67 mg/dL (7-18) H Creatinine 2.0 MG/DL (0.55-1.30) H Estimat Glomerular Filtration Rate mL/min (>60) Glucose Level 137 MG/DL (74-106) H Hemoglobin A1c 6.6 % (4.3-6.0) H Uric Acid 5.8 MG/DL (2.6-7.2) Calcium Level 8.6 MG/DL (8.5-10.1) Phosphorus Level 4.7 MG/DL (2.5-4.9) Magnesium Level 2.9 MG/DL (1.8-2.4) H Iron Level 69 ug/dL (50-175) Total Iron Binding Capacity 187 ug/dL (250-450) L Percent Iron Saturation 37 % (15-50) Unsaturated Iron Binding 118 ug/dL (112-346) Ferritin 490 NG/ML (8-388) H Total Bilirubin 0.3 MG/DL (0.2-1.0) Gamma Glutamyl Transpeptidase 205 U/L (5-85) H Aspartate Amino Transf (AST/SGOT) 30 U/L (15-37) Alanine Aminotransferase (ALT/SGPT) 29 U/L (12-78) Alkaline Phosphatase 203 U/L (46-116) H Total Creatine Kinase 61 U/L (26-308) Troponin I 0.031 ng/mL (0.000-0.056) Pro-B-Type Natriuretic Peptide 2483 pg/mL (0-125) H Total Protein 7.3 G/DL (6.4-8.2) Albumin 2.4 G/DL (3.4-5.0) L Globulin 4.9 g/dL Albumin/Globulin Ratio 0.5 (1.0-2.7) L Carcinoembryonic Antigen Pending Vitamin B12 Level 1872 PG/ML (193-986) H Folate 61.6 NG/ML (8.6-58.9) H Thyroid Stimulating Hormone (TSH) 1.312 uiU/mL (0.358-3.740) Microbiology Date/Time Source Procedure Growth Status 04/14/18 18:50 Blood Blood Culture - Preliminary NO GROWTH AFTER 24 HOURS Resulted 04/14/18 18:45 Blood Blood Culture - Preliminary NO GROWTH AFTER 24 HOURS Resulted 04/14/18 19:00 Nasal Nares Influenza Types A,B Antigen (KEVIN) - Final Complete 04/15/18 03:28 Sacral Wound Gram Stain Pending Resulted 04/15/18 03:28 Sacral Wound Wound Culture - Preliminary Resulted 04/14/18 21:00 Rectum Received Everett Nair MD Apr 16, 2018 11:26
--- NOTE | 2018-04-16 11:33 | Infectious Diseases Prog Note ---
Assessment/Plan Assessment/Plan A: 1. Sepsis/ Systemic inflammatory response syndrome with hypoglycemia, 2. pneumonia. 3. Diabetes mellitus. 4. Chronic kidney disease. 5. Anemia. 6. Seizure disorder. 7. Right groin mass / hematoma. P: Continue Zosyn will f/u cultures Subjective ROS Limited/Unobtainable: Yes Constitutional: Reports: other - Doing better, transferred out of [facility] Allergies: Coded Allergies: PENICILLINS (Unverified Allergy, Mild, 12/04/12) Objective Vital Signs Last 24 Hour Vital Signs Date Time Temp Pulse Resp B/P (MAP) Pulse Ox O2 Delivery O2 Flow Rate FiO2 04/16/18 10:25 80 139/61 04/16/18 08:00 98.0 80 18 139/61 (87) 97 80 04/16/18 06:31 142/58 (86) 04/16/18 04:00 97.9 84 19 172/73 (106) 97 84 04/16/18 00:00 98.3 77 20 173/65 (101) 100 77 04/15/18 21:00 Nasal Cannula 2.0 04/15/18 21:00 Nasal Cannula 2.0 04/15/18 20:00 98.1 74 19 168/1 (56) 100 74 04/15/18 16:00 77 04/15/18 16:00 Nasal Cannula 2.0 04/15/18 12:00 80 04/15/18 12:00 Nasal Cannula 2.0 Height (Feet): 5 Height (Inches): 3.00 Weight (Pounds): 162 General Appearance: no acute distress HEENT: mucous membranes moist Respiratory/Chest: lungs clear Cardiovascular: normal rate Abdomen: soft, non tender, other - GT feeding Extremities: no edema Neurologic/Psychiatric: aphasia, other - opens eyes Microbiology Date/Time Source Procedure Growth Status 04/14/18 18:50 Blood Blood Culture - Preliminary NO GROWTH AFTER 24 HOURS Resulted 04/14/18 18:45 Blood Blood Culture - Preliminary NO GROWTH AFTER 24 HOURS Resulted 04/14/18 19:00 Nasal Nares Influenza Types A,B Antigen (KEVIN) - Final Complete 04/15/18 03:28 Sacral Wound Gram Stain Pending Resulted 04/15/18 03:28 Sacral Wound Wound Culture - Preliminary Resulted 04/14/18 21:00 Rectum Received Laboratory Tests Test 04/16/18 06:10 White Blood Count 8.8 K/UL (4.8-10.8) Red Blood Count 3.17 M/UL (4.20-5.40) L Hemoglobin 9.0 G/DL (12.0-16.0) L Hematocrit 28.1 % (37.0-47.0) L Mean Corpuscular Volume 89 FL (80-99) Mean Corpuscular Hemoglobin 28.3 PG (27.0-31.0) Mean Corpuscular Hemoglobin Concent 32.0 G/DL (32.0-36.0) Red Cell Distribution Width 14.0 % (11.6-14.8) Platelet Count 228 K/UL (150-450) Mean Platelet Volume 7.5 FL (6.5-10.1) Neutrophils (%) (Auto) 68.3 % (45.0-75.0) Lymphocytes (%) (Auto) 16.6 % (20.0-45.0) L Monocytes (%) (Auto) 9.3 % (1.0-10.0) Eosinophils (%) (Auto) 4.7 % (0.0-3.0) H Basophils (%) (Auto) 1.0 % (0.0-2.0) Sodium Level 141 MMOL/L (136-145) Potassium Level 5.4 MMOL/L (3.5-5.1) H Chloride Level 108 MMOL/L (98-107) H Carbon Dioxide Level 25 MMOL/L (21-32) Anion Gap 8 mmol/L (5-15) Blood Urea Nitrogen 67 mg/dL (7-18) H Creatinine 2.0 MG/DL (0.55-1.30) H Estimat Glomerular Filtration Rate mL/min (>60) Glucose Level 137 MG/DL (74-106) H Hemoglobin A1c 6.6 % (4.3-6.0) H Uric Acid 5.8 MG/DL (2.6-7.2) Calcium Level 8.6 MG/DL (8.5-10.1) Phosphorus Level 4.7 MG/DL (2.5-4.9) Magnesium Level 2.9 MG/DL (1.8-2.4) H Iron Level 69 ug/dL (50-175) Total Iron Binding Capacity 187 ug/dL (250-450) L Percent Iron Saturation 37 % (15-50) Unsaturated Iron Binding 118 ug/dL (112-346) Ferritin 490 NG/ML (8-388) H Total Bilirubin 0.3 MG/DL (0.2-1.0) Gamma Glutamyl Transpeptidase 205 U/L (5-85) H Aspartate Amino Transf (AST/SGOT) 30 U/L (15-37) Alanine Aminotransferase (ALT/SGPT) 29 U/L (12-78) Alkaline Phosphatase 203 U/L (46-116) H Total Creatine Kinase 61 U/L (26-308) Troponin I 0.031 ng/mL (0.000-0.056) Pro-B-Type Natriuretic Peptide 2483 pg/mL (0-125) H Total Protein 7.3 G/DL (6.4-8.2) Albumin 2.4 G/DL (3.4-5.0) L Globulin 4.9 g/dL Albumin/Globulin Ratio 0.5 (1.0-2.7) L Carcinoembryonic Antigen Pending Vitamin B12 Level 1872 PG/ML (193-986) H Folate 61.6 NG/ML (8.6-58.9) H Thyroid Stimulating Hormone (TSH) 1.312 uiU/mL (0.358-3.740) Current Medications Medications (Trade) Dose Ordered Sig/Gelacio Route PRN Reason Start Time Stop Time Status Last Admin Dose Admin Acetaminophen (Tylenol) 650 mg Q4H PRN RECTAL fever (temp>100.5F) 04/15/18 18:15 05/14/18 22:14 Amlodipine Besylate (Norvasc) 10 mg DAILY ORAL 04/17/18 09:00 05/17/18 08:59 Barium Sulfate (Readi-Cat 2) 450 ml NOW PRN ORAL Radiology Procedure 04/15/18 16:15 04/17/18 09:14 Bisacodyl (Dulcolax) 10 mg DAILYPRN PRN RECTAL Constipation 04/15/18 16:15 05/14/18 16:14 Clonidine HCl (Catapres Tab) 0.1 mg Q4H PRN ORAL bp over 165 syst 04/16/18 08:00 05/16/18 07:59 Dextrose (Dextrose 50%) 25 ml Q30M PRN IV Hypoglycemia 04/15/18 16:30 05/15/18 16:16 Dextrose (Dextrose 50%) 50 ml Q30M PRN IV hypoglycemia 04/15/18 16:30 05/15/18 16:29 Diphenhydramine HCl (Benadryl) 25 mg Q6H PRN GT Itching/Pruritis 04/15/18 16:15 05/14/18 22:14 Docusate Sodium (Colace) 100 mg TID GT 04/16/18 13:00 05/15/18 08:59 Heparin Sodium (Porcine) (Heparin 5000 units/ml) 5,000 units EVERY 12 HOURS SUBQ 04/15/18 21:00 05/15/18 20:59 04/16/18 10:26 Insulin Aspart (NovoLOG) EVERY 6 HOURS SUBQ 04/15/18 18:00 05/15/18 07:59 04/16/18 06:18 Morphine Sulfate (Morphine Sulfate) 1 mg Q3H PRN IVP Breakthrough Pain 04/15/18 16:30 04/22/18 16:29 Morphine Sulfate (Morphine Sulfate) 2 mg Q3H PRN IVP Moderate Pain (Pain Scale 4-6) 04/15/18 16:30 04/22/18 16:29 Ondansetron HCl (Zofran) 4 mg Q6H PRN IVP Nausea & Vomiting 04/15/18 16:15 05/14/18 22:14 Pantoprazole (Protonix) 40 mg DAILY IV 04/16/18 09:00 05/15/18 08:59 04/16/18 10:24 Piperacillin Sod/ Tazobactam Sod 2.25 gm/Dextrose 55 ml @ 110 mls/hr Q8HR IVPB 04/15/18 22:00 04/22/18 21:59 04/16/18 06:19 Sodium Chloride 1,000 ml @ 50 mls/hr Q20H IV 04/16/18 10:00 05/16/18 09:59 04/16/18 10:25 Wilder French MD Apr 16, 2018 11:33
[2018-04-16] MEDS: Docusate 100mg/10ml Liq GT SCH ×2 (12:38→17:57)
--- NOTE | 2018-04-16 13:08 | Diagnostic Imaging Report ---
APPROVED REPORT CPT Code: 58516 Present Symptoms Comments: R/O DVT BILATERAL: Imaging reveals a patent deep venous system bilaterally. There is no evidence of thrombus within the femoral, popliteal or tibial segments. The greater saphenous veins are also within normal limits. Doppler indicates normal spontaneous flow within these segments. 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 DIPAK Acevedo was notified of abnormal results at 1043.
--- NOTE | 2018-04-16 13:19 | Cardiology Report ---
APPROVED REPORT EXAM: Two-dimensional and M-mode echocardiogram with Doppler and color Doppler. INDICATION S.O.B M-Mode DIMENSIONS IVSd1.3 (0.7-1.1cm)Left Atrium (MM)3.2 (1.6-4.0cm) LVDd5.1 (3.5-5.6cm)Aortic Root3.2 (2.0-3.7cm) PWd2.0 (0.7-1.1cm)Aortic Cusp Exc.1.6 (1.5-2.0cm) IVSs3.5 cm LVDs1.7 (2.5-4.0cm) Technically difficult study due to poor acoustical windows . Normal left ventricular chamber size, systolic function and wall motion to extent visualized. Left ventricular ejection fraction estimated to be 55-60 %. Mild left ventricular hypertrophy. No evidence of pericardial effusion. Mild left atrial enlargement . Right cardiac chamber sizes are within normal limits. Focal aortic valve sclerosis with normal cusp excursion. Thickened mitral valve leaflets with normal excursion. Mitral annulus and aortic root calcification. Normal pulmonic valve structure. Normal tricuspid valve structure. IVC dilated at 2.2 cm without physiologic collapse suggestive of increased RA pressure. A color flow and spectral Doppler study was performed and revealed: No aortic regurgitation. Moderate mitral regurgitation. Mitral diastolic velocities suggest reduced left ventricular relaxation c/w mild LV diastolic dysfunction (Grade I ) Mild tricuspid regurgitation. Tricuspid systolic velocities suggests peak right ventricular systolic pressure of 53 mmHg, consistent with moderate pulmonary hypertension.
--- NOTE | 2018-04-16 14:04 | General Surgery Progress Note ---
General Surgery-Progress Note Subjective Symptoms: improved, pain absent, passing flatus Objective Last 24 Hour Vital Signs Date Time Temp Pulse Resp B/P (MAP) Pulse Ox O2 Delivery O2 Flow Rate FiO2 04/16/18 10:25 80 139/61 04/16/18 09:00 Nasal Cannula 2.0 04/16/18 08:00 98.0 80 18 139/61 (87) 97 80 04/16/18 06:31 142/58 (86) 04/16/18 04:00 97.9 84 19 172/73 (106) 97 84 04/16/18 00:00 98.3 77 20 173/65 (101) 100 77 04/15/18 21:00 Nasal Cannula 2.0 04/15/18 21:00 Nasal Cannula 2.0 04/15/18 20:00 98.1 74 19 168/1 (56) 100 74 04/15/18 16:00 77 04/15/18 16:00 Nasal Cannula 2.0 I&O Intake and Output 04/15/18 04/16/18 19:00 07:00 Intake Total 1295 ml 350 ml Output Total 800 ml 800 ml Balance 495 ml -450 ml Intake Free Water 150 ml 100 ml IV Total 560 ml Tube Feeding 585 ml 250 ml Output Urine Total 800 ml 800 ml Dressing: saturated Wound: other Drains: other Cardiovascular: RSR Respiratory: clear Abdomen: soft, flat, non-tender, present bowel sounds Extremities: other Laboratory Tests Test 04/16/18 06:10 White Blood Count 8.8 K/UL (4.8-10.8) Red Blood Count 3.17 M/UL (4.20-5.40) L Hemoglobin 9.0 G/DL (12.0-16.0) L Hematocrit 28.1 % (37.0-47.0) L Mean Corpuscular Volume 89 FL (80-99) Mean Corpuscular Hemoglobin 28.3 PG (27.0-31.0) Mean Corpuscular Hemoglobin Concent 32.0 G/DL (32.0-36.0) Red Cell Distribution Width 14.0 % (11.6-14.8) Platelet Count 228 K/UL (150-450) Mean Platelet Volume 7.5 FL (6.5-10.1) Neutrophils (%) (Auto) 68.3 % (45.0-75.0) Lymphocytes (%) (Auto) 16.6 % (20.0-45.0) L Monocytes (%) (Auto) 9.3 % (1.0-10.0) Eosinophils (%) (Auto) 4.7 % (0.0-3.0) H Basophils (%) (Auto) 1.0 % (0.0-2.0) Sodium Level 141 MMOL/L (136-145) Potassium Level 5.4 MMOL/L (3.5-5.1) H Chloride Level 108 MMOL/L (98-107) H Carbon Dioxide Level 25 MMOL/L (21-32) Anion Gap 8 mmol/L (5-15) Blood Urea Nitrogen 67 mg/dL (7-18) H Creatinine 2.0 MG/DL (0.55-1.30) H Estimat Glomerular Filtration Rate mL/min (>60) Glucose Level 137 MG/DL (74-106) H Hemoglobin A1c 6.6 % (4.3-6.0) H Uric Acid 5.8 MG/DL (2.6-7.2) Calcium Level 8.6 MG/DL (8.5-10.1) Phosphorus Level 4.7 MG/DL (2.5-4.9) Magnesium Level 2.9 MG/DL (1.8-2.4) H Iron Level 69 ug/dL (50-175) Total Iron Binding Capacity 187 ug/dL (250-450) L Percent Iron Saturation 37 % (15-50) Unsaturated Iron Binding 118 ug/dL (112-346) Ferritin 490 NG/ML (8-388) H Total Bilirubin 0.3 MG/DL (0.2-1.0) Gamma Glutamyl Transpeptidase 205 U/L (5-85) H Aspartate Amino Transf (AST/SGOT) 30 U/L (15-37) Alanine Aminotransferase (ALT/SGPT) 29 U/L (12-78) Alkaline Phosphatase 203 U/L (46-116) H Total Creatine Kinase 61 U/L (26-308) Troponin I 0.031 ng/mL (0.000-0.056) Pro-B-Type Natriuretic Peptide 2483 pg/mL (0-125) H Total Protein 7.3 G/DL (6.4-8.2) Albumin 2.4 G/DL (3.4-5.0) L Globulin 4.9 g/dL Albumin/Globulin Ratio 0.5 (1.0-2.7) L Carcinoembryonic Antigen Pending Vitamin B12 Level 1872 PG/ML (193-986) H Folate 61.6 NG/ML (8.6-58.9) H Thyroid Stimulating Hormone (TSH) 1.312 uiU/mL (0.358-3.740) Plan Problems: (1) Mass of right thigh Assessment & Plan: likely hematoma. see below (2) Hematoma Assessment & Plan: Right Thigh Hematoma. Likely from prior femoral line insertion given puncture site. Will obtain records to identify when and if line placed no signs of infection will obtain venous duplex of lower extremity and US of site to further evaluation warm compress will monitor clinically for now thank you for this consultation will follow with recs Imaging reveals a patent deep venous system bilaterally. There is no evidence of thrombus within the femoral, popliteal or tibial segments. The greater saphenous veins are also within normal limits. Doppler indicates normal spontaneous flow within these segments. 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 -vascular consult (3) Decubitus ulcer of sacral region, unstageable Assessment & Plan: Resolving Stage IV sacral decubitus ulcer 4cm x 3cm with area of fibrinous debris / sloth in center. surrounding granulation tissue. prior scar periwound healing without active infection. no odor. no signs of active infection bilateral heel ulcers / DTPI wounds present on admission and will be cared for during hospital stay. please refer to photos for details -wash wounds with NS daily -apply therahoney to sacral wound and cover with foam dressing daily and prn -heel protectors -okay to betadine heels and apply foam dressing -air mattress -turn q2 thank you Jean Marie aPrk Apr 16, 2018 14:04
--- NOTE | 2018-04-16 14:11 | Diagnostic Imaging Report ---
INDICATION: Reason For Exam: SOB TECHNIQUE: No oral or IV contrast, per referring physician request. Spiral acquisitions obtained through the chest abdomen and pelvis Multiplanar reconstructions were generated. Total dose length product 1444.47 mGycm. CTDIvol(s) 16.74,16.74,17.4 mGy. Radiation dose was minimized using automated exposure control COMPARISON: Abdomen pelvis CT dated 12/04/2012. No comparison chest CTs FINDINGS Chest: Evaluation of the lungs is limited due to respiratory motion artifact. There are bilateral moderate to large pleural effusions. There is resultant compressive atelectasis of much of both lower lobes. Multiple sub-5 mm nodules are seen within the right middle and within the left upper lobe. Groundglass opacities are seen in the inferior right upper lobe, may in part be artifactual due to the respiratory motion. Granulomatous calcifications are seen within the collapsed right lobe lung parenchyma The heart is mildly enlarged. There is a small pericardial effusion. No mediastinal or hilar mass or adenopathy. Included portions of the thyroid are unremarkable. No axillary or chest wall mass or adenopathy. Esophagus is unremarkable. The bones are unremarkable except for mild degenerative spondylosis changes. There is mild edema of the subcutaneous fat. Abdomen pelvis: Lack of enteric contrast limits assessment of the GI tract. There is suggestion of wall thickening of the distal rectum, particularly posterolaterally on the left. No evidence of diverticulosis or diverticulitis. What may be an intramural lipoma is seen within the distal descending colon. The appendix is normal. No small bowel distention. No free or loculated intraperitoneal gas or fluid is evident. The stomach contains a gastrostomy tube which is in good position. The duodenum is unremarkable. No free or loculated gas or fluid is evident IV contrast limits assessment of the solid organs. The liver is grossly unremarkable. The gallbladder contains a gallstone. No biliary ductal dilatation. The pancreas, spleen, adrenals are unremarkable. The kidneys demonstrate lobulated contours. Subcentimeter low-attenuation lesion is seen in the left kidney, too small to characterize. No retroperitoneal or mesenteric mass or adenopathy. Uterus is absent, presumably postsurgically. The bladder contains a Degroot catheter. It is mildly distended despite this. There is equivocal bladder wall thickening, probably an artifact of under distention. The lowest cuts show, in the proximal thigh, a hyperattenuating mass which measures 6.6 cm transverse by 5.1 cm AP by 20 cm craniocaudad. There is also some infiltration of the surrounding fat, which is slightly asymmetric to the contralateral side, in addition to generalized soft tissue edema seen involving the bilateral flanks and proximal thighs. Impression: Bilateral moderate to large pleural effusions Compressive pulmonary parenchymal atelectatic changes. Areas of groundglass opacity may reflect areas of mild pulmonary edema Bilateral sub-5 mm lung nodules. Suspect postinflammatory in nature. Consider follow-up CT in 6-12 months to ensure stability Mild cardiomegaly Small pericardial effusion 5.1 x 6.6 x 20 cm hyperattenuating right proximal thigh mass. This is demonstrated on recent ultrasound to be a hematoma with central pseudoaneurysm Possible focal distal rectal wall thickening, if real could indicate rectal neoplasm. This finding was reported by phone to Dr. Post at the time of interpretation Cholelithiasis Equivocal bladder wall thickening, probably artifact of under distention but could indicate cystitis if real Generalized edema of the subcutaneous fat Other findings as noted, including degenerative spondylosis, distal colonic intramural lipoma, gastrostomy, prior hysterectomy, Degroot catheter, subcentimeter low-attenuation left renal lesion The CT scanner at [facility] is accredited by the [employer] and the scans are performed using protocols designed to limit radiation exposure to as low as reasonably achievable to attain images of sufficient resolution adequate for diagnostic evaluation.
[2018-04-16] MEDS ORDERED: Nulytely 4L ORAL SCH (16:00)
[2018-04-16] MEDS ORDERED: Polyethylene Glycol 238gm bottle ORAL SCH (16:00)
--- NOTE | 2018-04-16 16:30 | Consultation ---
DATE OF CONSULTATION: 04/16/2018 CARDIOLOGY CONSULTATION CONSULTING PHYSICIAN: Everett Nair M.D. REFERRING PHYSICIAN: Krzysztof Schneider M.D. REASON FOR CONSULTATION: Bradycardia, weakness. HISTORY OF PRESENT ILLNESS: The patient is an 82-year-old lady resident of [facility] with history of dysphagia status post G-tube placement, who was noted to be more unresponsive and blood tests showed the patient was hypoglycemic. The patient was sent to the emergency room. Her EKG also showed bradycardia, heart rate 52 beats per minute and sinus corey as well as right bundle-branch block. Cardiology consultation was requested for further evaluation and management. REVIEW OF SYSTEMS: Cannot be obtained, has advanced dementia. PAST MEDICAL HISTORY: As mentioned above. Paroxysmal atrial fibrillation with rapid ventricular response from March of 2018. PAST SURGICAL HISTORY: Includes G tube placement. FAMILY HISTORY: Noncontributory. SOCIAL HISTORY: She lives in [facility]. Does not smoke or drink alcohol. PHYSICAL EXAMINATION: VITAL SIGNS: Show blood pressure of 159/61, pulse is 80, respirations 18, and temperature 98. HEAD AND NECK: Shows no jugular venous distention. LUNGS: Coarse rhonchi. CARDIOVASCULAR: Regular S1 and S2 with no gallop. ABDOMEN: Status post G-tube. EXTREMITIES: No pitting edema. LABORATORY AND DIAGNOSTIC STUDIES: Her laboratory show white count of 8.8, hemoglobin 9, hematocrit 28, and platelet count is 228. Sodium 141, potassium 5.4, BUN of 67, creatinine 2. Troponin is negative. BNP 2483. ASSESSMENT AND PLAN: 1. Bradycardia with heart rate in the 50s. The patient also history of paroxysmal atrial fibrillation. Keep the patient off any AV miguel angel blocking agent. Transfer the patient to telemetry for closer monitoring. 2. Paroxysmal atrial fibrillation, again off any AV miguel angel justo. Transfer to telemetry for monitoring. 3. Hypertension on Norvasc 10 mg daily and p.r.n. clonidine. 4. Dysphagia, status post PEG placement. 5. Right groin mass, was evaluated by Dr. Park, said to be hematoma, likely from prior femoral line insertion given puncture site. Lower extremity duplexes. 6. Unstageable sacral decubitus ulcer on antibiotic. Thank you very much for allowing me to participate in the care of this patient. Please do not hesitate to contact me for any questions regarding my evaluation. Sincerely , Everett Nair M.D. DR: Ian JOB#: [id number] CC:
--- NOTE | 2018-04-16 16:35 | Diagnostic Imaging Report ---
Indication: Mass in right groin and proximal thigh Technique: Grayscale duplex images of the right groin and proximal thigh Comparison: CT of earlier the same day Findings: There is a large hematoma in the proximal thigh, measuring approximately 12 x 5 x 5 cm. Other smaller foci of hematoma are seen more superficially. Centrally within the hematoma, there is a pseudoaneurysm, which demonstrates pulsatile to and fro blood flow. This measures approximately 7.6 x 3.3 x 3.3 cm. On real-time imaging, this appears to be connected to the superficial femoral artery with a small neck. There is also evidence of turbulent flow within the adjacent femoral vein and pulsatile flow in the downstream femoral vein suggesting an AV fistula. However, this area was difficult to visualize, due to the depth of the vessels and shadowing by the overlying hematoma so the exact anatomy is difficult to discern. Impression: Right groin/proximal thigh hematoma with central 7.6 x 3.3 x 3.3 cm pseudoaneurysm, appearing to come off of the superficial femoral artery. 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 Findings discussed by phone with Dr. Park previously
[2018-04-16] MEDS ORDERED: Fleet's Enema 133ml RECTAL SCH (23:00)
[2018-04-17] VITALS (14 sets, daily range): BP systolic 154–205; BP diastolic 69–86
--- NOTE | 2018-04-17 02:45 | Progress Note ---
DATE: 04/16/2018 SUBJECTIVE: The patient is nonverbal and has multiple decubitus. The patient also has hematoma on the thigh that I have consulted Dr. Chisholm. The patient has been admitted for acute renal failure on top of chronic renal failure. hemodynamically stable. ASSESSMENT AND PLAN: Hematoma in the lower extremity and I consulted with Dr. Chisholm. Acute renal failure, Dr. Ortiz is helping with that issue. The patient has multiple decubitus ulcers. The patient's congestion is somewhat improved and will need p.r.n. suction. at this point, we will continue to monitor the patient closely. Krzysztof Schneider M.D. DR: Neil JOB#: [id number] CC:
[2018-04-17] MEDS: NovoLOG Insulin Flexpen SUBQ SCH ×4 (06:00→17:43)
[2018-04-17] MEDS: Piperacillin/Tazobactam 2.25 GM in D5W 55 ML IVPB SCH ×3 (06:13→22:19)
--- NOTE | 2018-04-17 07:05 | Consultation ---
Consult Note Consult Note Hematology Consult Date patient seen: 04/17/2018 Chief Complaint: Altered Level of Consciousness RFC: Anemia eval, leukocytosis REQ MD: Krzysztof Schneider HPI 82 year old female with multiple medical comorbidities, trach, peg, shelter resident presented to ED with overt sepsis and low blood sugar. Presents with SOB, tachycardia, respiratory failure, cloudy urine. Intubated, on vent support, central line placed, admitted to ICU. On admission noted to have leukocytosis, elevated lfts, sacral wound. surgery called to evaluate and assist with care / management. patient seen, chart reviewed, patient examined. unable to provide history given medical condition. Noted to be anemic and heme was consulted as well as several other services. Allergies: Coded Allergies: PENICILLINS (Unverified Allergy, Mild, 12/04/12) Medication History Scheduled Acetaminophen With Codeine (T#3) (Tylenol #3 Tab*), 1 TAB ORAL PRN, (Reported) Amino Acids/Protein Hydrolys (Pro-Stat Liquid), 30 ML GT DAILY, (Reported) Amlodipine Besylate (Norvasc), 5 MG GT DAILY, (Reported) Aspirin* (Aspir 81*), 81 MG GT DAILY, (Reported) Aspirin/Dipyridamole* (Aggrenox 25 Mg-200 Mg Capsule*), 1 CAP ORAL TWICE A DAY, (Reported) Atorvastatin Calcium* (Atorvastatin Calcium*), 10 MG GT BEDTIME, (Reported) Calcium Carbonate/Vitamin D3 (Calcium 500 + Vit D 200 Caplet), 1 EACH PO BID, ( Reported) Clonidine Hcl* (Catapres*), 0.1 MG GT EVERY 6 HOURS, (Reported) Dipyridamole/Aspirin (Aggrenox 25 mg-200 mg Capsule), 1 CAP ORAL TWICE A DAY, ( Reported) Docusate Sodium* (Docusate Sodium*), 100 MG ORAL TWICE A DAY, (Reported) Ferrous Sulfate* (Ferrous Sulfate*), 325 MG ORAL TWICE A DAY, (Reported) Gabapentin* (Neurontin*), 100 MG GT THREE TIMES A DAY, (Reported) Insulin Detemir (Levemir Flexpen), 12 UNIT SUBQ Q12HR, (Reported) Insulin Detemir (Levemir), 30 SUBQ BEDTIME, (Reported) Levetiracetam* (Levetiracetam*), 7.5 ML GT BID, (Reported) Losartan Potassium* (Cozaar*), 50 MG ORAL TWICE A DAY, (Reported) Meclizine Hcl* (Meclizine*), 25 MG ORAL THREE TIMES A DAY, (Reported) Metoprolol Tartrate* (Metoprolol Tartrate*), 50 MG ORAL EVERY 12 HOURS, ( Reported) Multivitamin with Minerals (Multivitamins with Minerals), 1 TAB GT DAILY, ( Reported) Nut.tx.impaired Renal Fxn,Soy (Nepro Carb Steady), 40 ML GT Q12HR, (Reported) Pantoprazole (Pantoprazole), 40 MG GT DAILY, (Reported) Polyethylene Glycol 3350* (Miralax*), 17 GM ORAL HS, (Reported) Polyethylene Glycol 3350* (Miralax*), 17 GM ORAL DAILY, (Reported) Potassium (Potassium), 8 MEQ PO DAILY, (Reported) Sucralfate* (Carafate*), 1 GM GT TID, (Reported) Vit B Cmplx 3/Fa/Vit C/Biotin (Sasha-Hannah Rx Tablet), 1 EACH PO DAILY, (Reported) Scheduled PRN Acetaminophen* (Acetaminophen 325MG Tablet*), 650 MG GT Q4H PRN for Pain Scale ( 3-5), (Reported) Zolpidem Tartrate* (Ambien*), 5 MG ORAL BEDTIME PRN for Insomnia, (Reported) Miscellaneous Medications Cranberry (Cranberry), 450 MG PO, (Reported) Insulin Lispro (Humalog), Unknown Dose SUBQ, (Reported) Mag Hydrox/Al Hydrox/Simeth (Alum-Mag Hydroxide-Simeth Liq), 360 ML PO, ( Reported) Sennosides (Patti-Elpidio), 8.6 MG PO, (Reported) Past Medical/Surgical History Past Medical/Surgical History: (1) Hypertension (2) Sepsis (3) Respiratory failure (4) UTI (urinary tract infection) (5) Severe sepsis (6) NSTEMI (non-ST elevated myocardial infarction) (7) Anemia (8) Seizure disorder (9) CKD (chronic kidney disease) (10) MARK (acute kidney injury) Review of Systems ROS Narrative cannot obtain given medical condition Physical Exam General Appearance: mild distress Lines, tubes and drains: central line HEENT: mucous membranes moist Neck: trach Respiratory/Chest: on vent Cardiovascular/Chest: normal rate Abdomen: feeding tube Genitourinary/Rectal: shaver Extremities: other Skin Exam: warm/dry Neurologic: unresponsiveness Last 24 Hour Vital Signs Date Time Temp Pulse Resp B/P (MAP) Pulse Ox O2 Delivery O2 Flow Rate FiO2 04/17/18 06:30 86 166/76 (106) 04/17/18 05:30 85 180/70 (106) 04/17/18 04:49 205/75 04/17/18 04:00 97.7 92 16 205/75 (118) 97 04/17/18 00:00 97.5 83 18 163/86 (111) 98 04/16/18 21:00 Nasal Cannula 2.0 04/16/18 20:02 184/79 04/16/18 20:00 97.8 78 16 184/79 (114) 100 04/16/18 16:00 98.0 75 18 135/66 (89) 97 75 04/16/18 12:00 97.9 77 18 132/68 (89) 98 77 04/16/18 10:25 80 139/61 04/16/18 09:00 Nasal Cannula 2.0 04/16/18 08:00 98.0 80 18 139/61 (87) 97 80 Current Medications Medications (Trade) Dose Ordered Sig/Gelacio Route PRN Reason Start Time Stop Time Status Last Admin Dose Admin Acetaminophen (Tylenol) 650 mg Q4H PRN RECTAL fever (temp>100.5F) 04/15/18 18:15 05/14/18 22:14 Amlodipine Besylate (Norvasc) 10 mg DAILY ORAL 04/17/18 09:00 05/17/18 08:59 Barium Sulfate (Readi-Cat 2) 450 ml NOW PRN ORAL Radiology Procedure 04/15/18 16:15 04/17/18 09:14 Bisacodyl (Dulcolax) 10 mg DAILYPRN PRN RECTAL Constipation 04/15/18 16:15 05/14/18 16:14 Clonidine HCl (Catapres Tab) 0.1 mg Q4H PRN ORAL bp over 165 syst 04/16/18 08:00 05/16/18 07:59 04/17/18 04:49 Dextrose (Dextrose 50%) 25 ml Q30M PRN IV Hypoglycemia 04/15/18 16:30 05/15/18 16:16 Dextrose (Dextrose 50%) 50 ml Q30M PRN IV hypoglycemia 04/15/18 16:30 05/15/18 16:29 Diphenhydramine HCl (Benadryl) 25 mg Q6H PRN GT Itching/Pruritis 04/15/18 16:15 05/14/18 22:14 Docusate Sodium (Colace) 100 mg TID GT 04/16/18 13:00 05/15/18 08:59 04/16/18 17:57 Heparin Sodium (Porcine) (Heparin 5000 units/ml) 5,000 units EVERY 12 HOURS SUBQ 04/15/18 21:00 05/15/18 20:59 04/16/18 10:26 Insulin Aspart (NovoLOG) EVERY 6 HOURS SUBQ 04/15/18 18:00 05/15/18 07:59 04/16/18 17:58 Morphine Sulfate (Morphine Sulfate) 1 mg Q3H PRN IVP Breakthrough Pain 04/15/18 16:30 04/22/18 16:29 Morphine Sulfate (Morphine Sulfate) 2 mg Q3H PRN IVP Moderate Pain (Pain Scale 4-6) 04/15/18 16:30 04/22/18 16:29 Ondansetron HCl (Zofran) 4 mg Q6H PRN IVP Nausea & Vomiting 04/15/18 16:15 05/14/18 22:14 Pantoprazole (Protonix) 40 mg DAILY IV 04/16/18 09:00 05/15/18 08:59 04/16/18 10:24 Piperacillin Sod/ Tazobactam Sod 2.25 gm/Dextrose 55 ml @ 110 mls/hr Q8HR IVPB 04/15/18 22:00 04/22/18 21:59 04/17/18 06:13 Sodium Chloride 1,000 ml @ 50 mls/hr Q20H IV 04/16/18 10:00 05/16/18 09:59 04/16/18 10:25 Laboratory Tests Test 04/16/18 18:28 04/17/18 04:50 Urine Eosinophils None seen (NONE SEEN) White Blood Count Pending Red Blood Count Pending Hemoglobin Pending Hematocrit Pending Mean Corpuscular Volume Pending Mean Corpuscular Hemoglobin Pending Mean Corpuscular Hemoglobin Concent Pending Red Cell Distribution Width Pending Platelet Count Pending Mean Platelet Volume Pending Neutrophils (%) (Auto) Pending Lymphocytes (%) (Auto) Pending Monocytes (%) (Auto) Pending Eosinophils (%) (Auto) Pending Basophils (%) (Auto) Pending Prothrombin Time Pending Prothromb Time International Ratio Pending Activated Partial Thromboplast Time Pending Sodium Level Pending Potassium Level Pending Chloride Level Pending Carbon Dioxide Level Pending Blood Urea Nitrogen Pending Creatinine Pending Estimat Glomerular Filtration Rate Pending Glucose Level Pending Calcium Level Pending Assessment/Plan # Anemia of chronic disease -- baseline appears to be 10-11 reviewed labs from 2012 --> at this time decreased, anemia panel has been ordered on prior admission and c/w acd --> transfuse as needed, hgb goal >7 --> no evidence of hemolysis noted # Leukocytosis likely related to septic shock --> on abx and ivf --> appreciate ID recs and workup --> surg recs reviewed # Abnormal LFTs --> likely shock liver from overt sepsis. --> trend labs # Decubitus ulcer of sacral region, unstageable, 5cm x 4cm unstagable sacral decubitus ulcer, no drainage, mild periedge edema/erythema, soft, no odor present upon admission. will be cared for during hospital sta # Severe sepsis --> on abx as per ID # Respiratory failure intubated --> as per pulm Greatly appreciate consultation! Aleksandr Kern MD Apr 17, 2018 07:05
[2018-04-17 07:08] LABS: BASOPHILS % (AUTO) 1.3 % (0.0-2.0); HEMATOCRIT 28.4 % (37.0-47.0); HEMOGLOBIN 9.2 G/DL (12.0-16.0); LYMPHOCYTES % (AUTO) 15.5 % (20.0-45.0); MEAN CORPUSCULAR VOLUME 89 FL (80-99); MONOCYTES % (AUTO) 9.5 % (1.0-10.0); NEUTROPHILS % (AUTO) 68.7 % (45.0-75.0); PLATELET COUNT 214 K/UL (150-450); RED BLOOD COUNT 3.19 M/UL (4.20-5.40); RED CELL DISTRIBUTION WIDTH 13.7 % (11.6-14.8); WHITE BLOOD COUNT 8.7 K/UL (4.8-10.8)
[2018-04-17 07:16] LABS: ANION GAP 9 mmol/L (5-15); BLOOD UREA NITROGEN 51 mg/dL (7-18); CALCIUM 8.7 MG/DL (8.5-10.1); CARBON DIOXIDE 23 MMOL/L (21-32); CHLORIDE 109 MMOL/L (98-107); CREATININE 1.9 MG/DL (0.55-1.30); POTASSIUM 5.1 MMOL/L (3.5-5.1); SODIUM 141 MMOL/L (136-145)
--- NOTE | 2018-04-17 07:47 | General Progress Note ---
Assessment/Plan Problem List: (1) Hypoglycemia ICD Codes: E16.2 - Hypoglycemia, unspecified SNOMED: 038032360 (2) CKD (chronic kidney disease) ICD Codes: N18.9 - Chronic kidney disease, unspecified SNOMED: 090357358 (3) Encephalopathy due to metabolic factor or toxin SNOMED: 140447301 (4) Hypertension ICD Codes: I10 - Essential (primary) hypertension SNOMED: 69609537 Assessment/Plan continue TF continue IVF NISS low dose every 6 hours Subjective Allergies: Coded Allergies: PENICILLINS (Unverified Allergy, Mild, 12/04/12) All Systems: reviewed and negative except above Subjective events noted Objective Last 24 Hour Vital Signs Date Time Temp Pulse Resp B/P (MAP) Pulse Ox O2 Delivery O2 Flow Rate FiO2 04/17/18 06:30 86 166/76 (106) 04/17/18 05:30 85 180/70 (106) 04/17/18 04:49 205/75 04/17/18 04:00 97.7 92 16 205/75 (118) 97 04/17/18 00:00 97.5 83 18 163/86 (111) 98 04/16/18 21:00 Nasal Cannula 2.0 04/16/18 20:02 184/79 04/16/18 20:00 97.8 78 16 184/79 (114) 100 04/16/18 16:00 98.0 75 18 135/66 (89) 97 75 04/16/18 12:00 97.9 77 18 132/68 (89) 98 77 04/16/18 10:25 80 139/61 04/16/18 09:00 Nasal Cannula 2.0 04/16/18 08:00 98.0 80 18 139/61 (87) 97 80 Intake and Output 04/16/18 04/17/18 19:00 07:00 Intake Total 610 ml Output Total 1000 ml 350 ml Balance -1000 ml 260 ml IV Total 610 ml Output Urine Total 1000 ml 350 ml # Bowel Movements 3 Laboratory Tests 04/16/18 18:28: Urine Eosinophils None seen 04/17/18 04:50: White Blood Count 8.7, Red Blood Count 3.19L, Hemoglobin 9.2L, Hematocrit 28.4L , Mean Corpuscular Volume 89, Mean Corpuscular Hemoglobin 29.0, Mean Corpuscular Hemoglobin Concent 32.6, Red Cell Distribution Width 13.7, Platelet Count 214, Mean Platelet Volume 7.3, Neutrophils (%) (Auto) 68.7, Lymphocytes (% ) (Auto) 15.5L, Monocytes (%) (Auto) 9.5, Eosinophils (%) (Auto) 5.0H, Basophils (%) (Auto) 1.3, Prothrombin Time 10.8, Prothromb Time International Ratio 1.0, Activated Partial Thromboplast Time 29, Sodium Level 141, Potassium Level 5.1, Chloride Level 109H, Carbon Dioxide Level 23, Anion Gap 9, Blood Urea Nitrogen 51H, Creatinine 1.9H, Estimat Glomerular Filtration Rate , Glucose Level 95, Calcium Level 8.7 Height (Feet): 5 Height (Inches): 3.00 Weight (Pounds): 162 General Appearance: no apparent distress Neck: normal alignment Cardiovascular: normal rate Respiratory/Chest: lungs clear Objective Current Medications Medications (Trade) Dose Ordered Sig/Gelacio Route PRN Reason Start Time Stop Time Status Last Admin Dose Admin Acetaminophen (Tylenol) 650 mg Q4H PRN RECTAL fever (temp>100.5F) 04/15/18 18:15 05/14/18 22:14 Amlodipine Besylate (Norvasc) 10 mg DAILY ORAL 04/17/18 09:00 05/17/18 08:59 Barium Sulfate (Readi-Cat 2) 450 ml NOW PRN ORAL Radiology Procedure 04/15/18 16:15 04/17/18 09:14 Bisacodyl (Dulcolax) 10 mg DAILYPRN PRN RECTAL Constipation 04/15/18 16:15 05/14/18 16:14 Clonidine HCl (Catapres Tab) 0.1 mg Q4H PRN ORAL bp over 165 syst 04/16/18 08:00 05/16/18 07:59 04/17/18 04:49 Dextrose (Dextrose 50%) 25 ml Q30M PRN IV Hypoglycemia 04/15/18 16:30 05/15/18 16:16 Dextrose (Dextrose 50%) 50 ml Q30M PRN IV hypoglycemia 04/15/18 16:30 05/15/18 16:29 Diphenhydramine HCl (Benadryl) 25 mg Q6H PRN GT Itching/Pruritis 04/15/18 16:15 05/14/18 22:14 Docusate Sodium (Colace) 100 mg TID GT 04/16/18 13:00 05/15/18 08:59 04/16/18 17:57 Heparin Sodium (Porcine) (Heparin 5000 units/ml) 5,000 units EVERY 12 HOURS SUBQ 04/15/18 21:00 05/15/18 20:59 04/16/18 10:26 Insulin Aspart (NovoLOG) EVERY 6 HOURS SUBQ 04/15/18 18:00 05/15/18 07:59 04/16/18 17:58 Morphine Sulfate (Morphine Sulfate) 1 mg Q3H PRN IVP Breakthrough Pain 04/15/18 16:30 04/22/18 16:29 Morphine Sulfate (Morphine Sulfate) 2 mg Q3H PRN IVP Moderate Pain (Pain Scale 4-6) 04/15/18 16:30 04/22/18 16:29 Ondansetron HCl (Zofran) 4 mg Q6H PRN IVP Nausea & Vomiting 04/15/18 16:15 05/14/18 22:14 Pantoprazole (Protonix) 40 mg DAILY IV 04/16/18 09:00 05/15/18 08:59 04/16/18 10:24 Piperacillin Sod/ Tazobactam Sod 2.25 gm/Dextrose 55 ml @ 110 mls/hr Q8HR IVPB 04/15/18 22:00 04/22/18 21:59 04/17/18 06:13 Sodium Chloride 1,000 ml @ 50 mls/hr Q20H IV 04/16/18 10:00 05/16/18 09:59 04/16/18 10:25 Item Value Date Time Bedside Blood Glucose 104 mg/dl 04/17/18 0600 Bedside Blood Glucose 90 mg/dl 04/17/18 0009 Bedside Blood Glucose 115 mg/dl 04/16/18 1800 Bedside Blood Glucose 148 mg/dl H 04/16/18 1238 Bedside Blood Glucose 135 mg/dl H 04/16/18 0618 Awais Badillo MD Apr 17, 2018 07:47
[2018-04-17] MEDS ORDERED: Fleet's Enema 133ml RECTAL SCH (08:30)
[2018-04-17] MEDS: Docusate 100mg/10ml Liq GT SCH ×3 (08:57→17:19)
[2018-04-17] MEDS: Heparin 5000 units/ml inj SUBQ SCH ×2 (09:00→20:51)
[2018-04-17] MEDS: Pantoprazole Inj IV SCH (09:19)
[2018-04-17] MEDS: HydrALAZINE 25mg tab GT SCH ×3 (09:40→20:50)
--- NOTE | 2018-04-17 11:01 | General Progress Note ---
Assessment/Plan Problem List: (1) CKD (chronic kidney disease) ICD Codes: N18.9 - Chronic kidney disease, unspecified SNOMED: 674123969 (2) Sepsis ICD Codes: A41.9 - Sepsis, unspecified organism SNOMED: 59315063 (3) Seizure disorder ICD Codes: G40.909 - Epilepsy, unspecified, not intractable, without status epilepticus SNOMED: 274243512 (4) Anemia ICD Codes: D64.9 - Anemia, unspecified SNOMED: 939613473 (5) MARK (acute kidney injury) ICD Codes: N17.9 - Acute kidney failure, unspecified SNOMED: 29606216 (6) Mass of right thigh ICD Codes: R22.41 - Localized swelling, mass and lump, right lower limb SNOMED: 712115671 (7) Hematoma ICD Codes: T14.8XXA - Other injury of unspecified body region, initial encounter SNOMED: 452303571 (8) Decubitus ulcer of sacral region, unstageable ICD Codes: L89.150 - Pressure ulcer of sacral region, unstageable SNOMED: 159385162, 844977866 (9) Diabetic nephropathy ICD Codes: E11.21 - Type 2 diabetes mellitus with diabetic nephropathy SNOMED: 28209391, 136139097 (10) Pneumonia ICD Codes: J18.9 - Pneumonia, unspecified organism SNOMED: 340845743 Status: progressing Assessment/Plan afebrile multiple decus abx per id sepsis arf on top of cri needs fluids wound care needs suction prn Subjective ROS Limited/Unobtainable: Yes Allergies: Coded Allergies: PENICILLINS (Unverified Allergy, Mild, 12/04/12) Objective Last 24 Hour Vital Signs Date Time Temp Pulse Resp B/P (MAP) Pulse Ox O2 Delivery O2 Flow Rate FiO2 04/17/18 09:40 155/66 04/17/18 09:39 80 150/66 04/17/18 09:00 Nasal Cannula 2.0 04/17/18 08:00 97.2 82 16 169/69 (102) 97 04/17/18 06:30 86 166/76 (106) 04/17/18 05:30 85 180/70 (106) 04/17/18 04:49 205/75 04/17/18 04:00 97.7 92 16 205/75 (118) 97 04/17/18 00:00 97.5 83 18 163/86 (111) 98 04/16/18 21:00 Nasal Cannula 2.0 04/16/18 20:02 184/79 04/16/18 20:00 97.8 78 16 184/79 (114) 100 04/16/18 16:00 98.0 75 18 135/66 (89) 97 75 04/16/18 12:00 97.9 77 18 132/68 (89) 98 77 Intake and Output 04/16/18 04/17/18 19:00 07:00 Intake Total 770 ml Output Total 1000 ml 350 ml Balance -1000 ml 420 ml IV Total 770 ml Output Urine Total 1000 ml 350 ml # Bowel Movements 3 Laboratory Tests 04/16/18 18:28: Urine Eosinophils None seen 04/17/18 04:50: White Blood Count 8.7, Red Blood Count 3.19L, Hemoglobin 9.2L, Hematocrit 28.4L , Mean Corpuscular Volume 89, Mean Corpuscular Hemoglobin 29.0, Mean Corpuscular Hemoglobin Concent 32.6, Red Cell Distribution Width 13.7, Platelet Count 214, Mean Platelet Volume 7.3, Neutrophils (%) (Auto) 68.7, Lymphocytes (% ) (Auto) 15.5L, Monocytes (%) (Auto) 9.5, Eosinophils (%) (Auto) 5.0H, Basophils (%) (Auto) 1.3, Prothrombin Time 10.8, Prothromb Time International Ratio 1.0, Activated Partial Thromboplast Time 29, Sodium Level 141, Potassium Level 5.1, Chloride Level 109H, Carbon Dioxide Level 23, Anion Gap 9, Blood Urea Nitrogen 51H, Creatinine 1.9H, Estimat Glomerular Filtration Rate , Glucose Level 95, Calcium Level 8.7 04/17/18 08:00: Urine Eosinophils [Pending] Height (Feet): 5 Height (Inches): 3.00 Weight (Pounds): 160 Cardiovascular: normal rate Respiratory/Chest: lungs clear Abdomen: soft Krzysztof Schneider MD Apr 17, 2018 11:01
[2018-04-17] MEDS ORDERED: Propofol 200mg/20ml IV ONE (12:00)
[2018-04-17] MEDS ORDERED: Lidocaine 1% MPF 10mg/ml 5ml ONE (12:00)
[2018-04-17] MEDS ORDERED: Atropine Inj 1mg/10ml Syr IV PRN (12:00)
[2018-04-17] MEDS ORDERED: Midazolam 2mg/2ml Inj IVP PRN (12:00)
[2018-04-17] MEDS ORDERED: DiphenhydrAMINE 50mg/ml Inj IVP PRN (12:00)
[2018-04-17] MEDS ORDERED: fentaNYL 100 mcg/2 mL IV PRN (12:00)
--- NOTE | 2018-04-17 12:07 | Anethesia Preoperative Eval ---
Anesthesia Pre-op PMH/ROS General Date of Evaluation: Apr 17, 2018 Time of Evaluation: 12:01 Anesthesiologist: michelle ASA Score: ASA 4 Mallampati Score Class I : Soft palate, uvula, fauces, pillars visible Class II: Soft palate, uvula, fauces visible Class III: Soft palate, base of uvula visible Class IV: Only hard plate visible Mallampati Classification: Class II Surgeon: acacia Diagnosis: anemia Surgical Procedure: colonoscopy Anesthesia History: none Social History: alcohol use Family History: no anesthesia problems Allergies: Coded Allergies: PENICILLINS (Unverified Allergy, Mild, 12/04/12) Medications: see eMAR Patient NPO?: Yes Past Medical History Cardiovascular: Reports: HTN Pulmonary: Reports: other - pneumonia Gastrointestinal/Genitourinary: Reports: other - chronic kidney disease, alfonso, abnormal lfts, Neurologic/Psychiatric: Reports: other - seizure disorder,generalized weakness , encephalopathy Endocrine: Reports: DM - neuropathy Hematology/Immune: Reports: anemia, other - sepsis, lymphoma Anesthesia Pre-op Phys. Exam Physician Exam Last Vital Signs Date Time Temp Pulse Resp B/P (MAP) Pulse Ox O2 Delivery O2 Flow Rate FiO2 04/17/18 09:40 155/66 04/17/18 09:39 80 04/17/18 09:00 Nasal Cannula 2.0 04/17/18 08:00 97.2 16 97 Constitutional: NAD Neurologic: other - cva, legally blind Cardiovascular: RRR Respiratory: CTA Gastrointestinal: other - peg Airway Exam Mallampati Score: Class II MO: limited Neck: flexible TMD: 2fb ROM: limited Teeth: missing Anesthesia Pre-op A/P Labs Hematology Test 04/17/18 04:50 White Blood Count 8.7 K/UL (4.8-10.8) Red Blood Count 3.19 M/UL (4.20-5.40) L Hemoglobin 9.2 G/DL (12.0-16.0) L Hematocrit 28.4 % (37.0-47.0) L Mean Corpuscular Volume 89 FL (80-99) Mean Corpuscular Hemoglobin 29.0 PG (27.0-31.0) Mean Corpuscular Hemoglobin Concent 32.6 G/DL (32.0-36.0) Red Cell Distribution Width 13.7 % (11.6-14.8) Platelet Count 214 K/UL (150-450) Mean Platelet Volume 7.3 FL (6.5-10.1) Neutrophils (%) (Auto) 68.7 % (45.0-75.0) Lymphocytes (%) (Auto) 15.5 % (20.0-45.0) L Monocytes (%) (Auto) 9.5 % (1.0-10.0) Eosinophils (%) (Auto) 5.0 % (0.0-3.0) H Basophils (%) (Auto) 1.3 % (0.0-2.0) Coagulation Test 04/17/18 04:50 Prothrombin Time 10.8 SEC (9.30-11.50) Prothromb Time International Ratio 1.0 (0.9-1.1) Activated Partial Thromboplast Time 29 SEC (23-33) Chemistry Test 04/17/18 04:50 Sodium Level 141 MMOL/L (136-145) Potassium Level 5.1 MMOL/L (3.5-5.1) Chloride Level 109 MMOL/L (98-107) H Carbon Dioxide Level 23 MMOL/L (21-32) Anion Gap 9 mmol/L (5-15) Blood Urea Nitrogen 51 mg/dL (7-18) H Creatinine 1.9 MG/DL (0.55-1.30) H Estimat Glomerular Filtration Rate mL/min (>60) Glucose Level 95 MG/DL (74-106) Calcium Level 8.7 MG/DL (8.5-10.1) Risk Assessment & Plan Assessment: asa4 Plan: mac Status Change Before Surgery: No Pre-Antibiotics Drug: Jaleesa Rodriguez MD Apr 17, 2018 12:07
--- NOTE | 2018-04-17 12:22 | Pre-Procedure Note/Attestation ---
Pre-Procedure Note/Attestation Complete Prior to Procedure Planned Procedure: not applicable Procedure Narrative: colonoscopy Indications for Procedure Pre-Operative Diagnosis: ? rectal mass Attestation I attest that I discussed the nature of the procedure; its benefits; risks and complications; and alternatives (and the risks and benefits of such alternatives ), prior to the procedure, with the patient (or the patient's legal sales representative [employer]). I attest that, if there was a reasonable possibility of needing a blood transfusion, the patient (or the patient's legal sales representative [employer]) was given the [facility] standardized written summary, pursuant to the Kyree Marcel Blood Safety Act ([place] Health and Safety Code # 1645, as amended). I attest that I re-evaluated the patient just prior to the surgery and that there has been no change in the patient's H&P, except as documented below: Ruben Post MD Apr 17, 2018 12:22
--- NOTE | 2018-04-17 12:30 | Infectious Diseases Prog Note ---
Assessment/Plan Assessment/Plan A: 1. Sepsis/ Systemic inflammatory response syndrome with hypoglycemia, 2. pneumonia. 3. Diabetes mellitus. 4. Chronic kidney disease. 5. Anemia. 6. Seizure disorder. 7. Right thigh hematoma with central pseudoaneurysm 8. Rectal wall thickening P: Continue Zosyn will f/u cultures will f/u colonoscopy Subjective ROS Limited/Unobtainable: Yes Constitutional: Reports: no symptoms Allergies: Coded Allergies: PENICILLINS (Unverified Allergy, Mild, 12/04/12) Objective Vital Signs Last 24 Hour Vital Signs Date Time Temp Pulse Resp B/P (MAP) Pulse Ox O2 Delivery O2 Flow Rate FiO2 04/17/18 09:40 155/66 04/17/18 09:39 80 150/66 04/17/18 09:00 Nasal Cannula 2.0 04/17/18 08:00 97.2 82 16 169/69 (102) 97 04/17/18 06:30 86 166/76 (106) 04/17/18 05:30 85 180/70 (106) 04/17/18 04:49 205/75 04/17/18 04:00 97.7 92 16 205/75 (118) 97 04/17/18 00:00 97.5 83 18 163/86 (111) 98 04/16/18 21:00 Nasal Cannula 2.0 04/16/18 20:02 184/79 04/16/18 20:00 97.8 78 16 184/79 (114) 100 04/16/18 16:00 98.0 75 18 135/66 (89) 97 75 Height (Feet): 5 Height (Inches): 3.00 Weight (Pounds): 160 General Appearance: no acute distress HEENT: mucous membranes moist Respiratory/Chest: decreased breath sounds Cardiovascular: normal rate Abdomen: soft, non tender Extremities: no edema Neurologic/Psychiatric: aphasia Microbiology Date/Time Source Procedure Growth Status 04/14/18 18:50 Blood Blood Culture - Preliminary NO GROWTH AFTER 48 HOURS Resulted 04/14/18 18:45 Blood Blood Culture - Preliminary NO GROWTH AFTER 48 HOURS Resulted 04/14/18 21:00 Nasal Nares MRSA Culture - Final NO METHICILLIN RESISTANT STAPH AUREUS... Complete 04/14/18 19:00 Nasal Nares Influenza Types A,B Antigen (KEVIN) - Final Complete 04/15/18 03:28 Sacral Wound Gram Stain - Final Resulted 04/15/18 03:28 Wound Culture - Preliminary Gram Negative Bacillus 1 Gram Negative Bacillus 2 Gram Negative Bacillus 3 Resulted 04/14/18 21:00 Rectum - Final NO CARBAPENEM-RESISTANT ENTEROBACTERI... Complete 04/14/18 21:00 Rectum VRE Culture - Final Enterococcus Faecium - Vre Complete Laboratory Tests Test 04/16/18 18:28 04/17/18 04:50 04/17/18 08:00 Urine Eosinophils None seen (NONE SEEN) Rare (NONE SEEN) White Blood Count 8.7 K/UL (4.8-10.8) Red Blood Count 3.19 M/UL (4.20-5.40) L Hemoglobin 9.2 G/DL (12.0-16.0) L Hematocrit 28.4 % (37.0-47.0) L Mean Corpuscular Volume 89 FL (80-99) Mean Corpuscular Hemoglobin 29.0 PG (27.0-31.0) Mean Corpuscular Hemoglobin Concent 32.6 G/DL (32.0-36.0) Red Cell Distribution Width 13.7 % (11.6-14.8) Platelet Count 214 K/UL (150-450) Mean Platelet Volume 7.3 FL (6.5-10.1) Neutrophils (%) (Auto) 68.7 % (45.0-75.0) Lymphocytes (%) (Auto) 15.5 % (20.0-45.0) L Monocytes (%) (Auto) 9.5 % (1.0-10.0) Eosinophils (%) (Auto) 5.0 % (0.0-3.0) H Basophils (%) (Auto) 1.3 % (0.0-2.0) Prothrombin Time 10.8 SEC (9.30-11.50) Prothromb Time International Ratio 1.0 (0.9-1.1) Activated Partial Thromboplast Time 29 SEC (23-33) Sodium Level 141 MMOL/L (136-145) Potassium Level 5.1 MMOL/L (3.5-5.1) Chloride Level 109 MMOL/L (98-107) H Carbon Dioxide Level 23 MMOL/L (21-32) Anion Gap 9 mmol/L (5-15) Blood Urea Nitrogen 51 mg/dL (7-18) H Creatinine 1.9 MG/DL (0.55-1.30) H Estimat Glomerular Filtration Rate mL/min (>60) Glucose Level 95 MG/DL (74-106) Calcium Level 8.7 MG/DL (8.5-10.1) Current Medications Medications (Trade) Dose Ordered Sig/Gelacio Route PRN Reason Start Time Stop Time Status Last Admin Dose Admin Acetaminophen (Tylenol) 650 mg Q4H PRN RECTAL fever (temp>100.5F) 04/15/18 18:15 05/14/18 22:14 Al Hydroxide/Mg Hydroxide (Mylanta) 15 ml Q1H PRN ORAL gi upset 04/17/18 12:00 04/17/18 20:00 Amlodipine Besylate (Norvasc) 10 mg DAILY ORAL 04/17/18 09:00 05/17/18 08:59 04/17/18 09:39 Atropine Sulfate (Atropine) 0.5 mg Q5M PRN IV bpm less than 45 04/17/18 12:00 04/17/18 20:00 Bisacodyl (Dulcolax) 10 mg DAILYPRN PRN RECTAL Constipation 04/15/18 16:15 05/14/18 16:14 Clonidine HCl (Catapres Tab) 0.1 mg Q4H PRN ORAL bp over 165 syst 04/16/18 08:00 05/16/18 07:59 04/17/18 04:49 Dextrose (Dextrose 50%) 25 ml Q30M PRN IV Hypoglycemia 04/15/18 16:30 05/15/18 16:16 Dextrose (Dextrose 50%) 50 ml Q30M PRN IV hypoglycemia 04/15/18 16:30 05/15/18 16:29 Diphenhydramine HCl (Benadryl) 25 mg Q15M PRN IVP Itching 04/17/18 12:00 04/17/18 20:00 Diphenhydramine HCl (Benadryl) 25 mg Q6H PRN GT Itching/Pruritis 04/15/18 16:15 05/14/18 22:14 Docusate Sodium (Colace) 100 mg TID GT 04/16/18 13:00 05/15/18 08:59 04/16/18 17:57 Fentanyl Citrate (Sublimaze 100 mcg/2 mL) 25 mcg Q10M PRN IV Moderate Pain (Pain Scale 4-6) 04/17/18 12:00 04/17/18 20:00 Heparin Sodium (Porcine) (Heparin 5000 units/ml) 5,000 units EVERY 12 HOURS SUBQ 04/15/18 21:00 05/15/18 20:59 04/16/18 10:26 Hydralazine HCl (Apresoline) 5 mg Q30M PRN IV SBP>160 OR___/DBP>90 OR___ 04/17/18 12:00 04/17/18 20:00 Hydralazine HCl (Apresoline) 25 mg Q6H GT 04/17/18 09:00 05/17/18 08:59 04/17/18 09:40 Insulin Aspart (NovoLOG) EVERY 6 HOURS SUBQ 04/15/18 18:00 05/15/18 07:59 04/16/18 17:58 Midazolam HCl (Versed 2mg/2ml vial) 1 mg Q15M PRN IVP For Anxiety 04/17/18 12:00 04/17/18 18:00 Morphine Sulfate (Morphine Sulfate) 1 mg Q3H PRN IVP Breakthrough Pain 04/15/18 16:30 04/22/18 16:29 Morphine Sulfate (Morphine Sulfate) 2 mg Q3H PRN IVP Moderate Pain (Pain Scale 4-6) 04/15/18 16:30 04/22/18 16:29 Ondansetron HCl (Zofran) 4 mg Q1H PRN IVP Nausea & Vomiting 04/17/18 12:00 04/17/18 20:00 Ondansetron HCl (Zofran) 4 mg Q6H PRN IVP Nausea & Vomiting 04/15/18 16:15 05/14/18 22:14 Pantoprazole (Protonix) 40 mg DAILY IV 04/16/18 09:00 05/15/18 08:59 04/17/18 09:19 Piperacillin Sod/ Tazobactam Sod 2.25 gm/Dextrose 55 ml @ 110 mls/hr Q8HR IVPB 04/15/18 22:00 04/22/18 21:59 04/17/18 06:13 Sodium Chloride 1,000 ml @ 10 mls/hr Q24H IVLG 04/17/18 11:58 04/17/18 20:00 Sodium Chloride 1,000 ml @ 50 mls/hr Q20H IV 04/16/18 10:00 05/16/18 09:59 04/17/18 11:55 Wilder French MD Apr 17, 2018 12:30
[2018-04-17] MEDS ORDERED: NS 500ML IVPB ONE (12:35)
--- NOTE | 2018-04-17 14:34 | Nephrology Progress Note ---
Assessment/Plan Problem List: (1) MARK (acute kidney injury) (2) CKD (chronic kidney disease) (3) Diabetic nephropathy (4) Hypertension Assessment acute on chronic renal failure: Dehydration HTN DM / Proteinuria / HypoAlbuminemia Encephalopathy due to metabolic factor or toxin Hypoglycemia Anemia Decubitus ulcer of sacral region, unstageable PEG (percutaneous endoscopic gastrostomy) status Plan BP meds- adjusted Hydrate- change IV to 1/2 NS Monitor BS- Anemia conn avoid Nephrotoxics Monitor renal parameters per orders Subjective ROS Limited/Unobtainable: No Constitutional: Reports: malaise, weakness Objective Objective Last 24 Hour Vital Signs Date Time Temp Pulse Resp B/P (MAP) Pulse Ox O2 Delivery O2 Flow Rate FiO2 04/17/18 13:24 77 18 189/69 100 Nasal Cannula 2 04/17/18 13:20 77 18 182/73 100 Simple Mask 8 04/17/18 13:15 77 18 180/70 100 Simple Mask 8 04/17/18 13:10 97.7 73 18 173/76 100 Simple Mask 8 04/17/18 12:00 97.7 79 19 165/77 (106) 97 04/17/18 09:40 155/66 04/17/18 09:39 80 150/66 04/17/18 09:00 Nasal Cannula 2.0 04/17/18 08:00 97.2 82 16 169/69 (102) 97 04/17/18 06:30 86 166/76 (106) 04/17/18 05:30 85 180/70 (106) 04/17/18 04:49 205/75 04/17/18 04:00 97.7 92 16 205/75 (118) 97 04/17/18 00:00 97.5 83 18 163/86 (111) 98 04/16/18 21:00 Nasal Cannula 2.0 04/16/18 20:02 184/79 04/16/18 20:00 97.8 78 16 184/79 (114) 100 04/16/18 16:00 98.0 75 18 135/66 (89) 97 75 Intake and Output 04/16/18 04/17/18 19:00 07:00 Intake Total 770 ml Output Total 1000 ml 350 ml Balance -1000 ml 420 ml IV Total 770 ml Output Urine Total 1000 ml 350 ml # Bowel Movements 3 Laboratory Tests 04/16/18 18:28: Urine Eosinophils None seen 04/17/18 04:50: White Blood Count 8.7, Red Blood Count 3.19L, Hemoglobin 9.2L, Hematocrit 28.4L , Mean Corpuscular Volume 89, Mean Corpuscular Hemoglobin 29.0, Mean Corpuscular Hemoglobin Concent 32.6, Red Cell Distribution Width 13.7, Platelet Count 214, Mean Platelet Volume 7.3, Neutrophils (%) (Auto) 68.7, Lymphocytes (% ) (Auto) 15.5L, Monocytes (%) (Auto) 9.5, Eosinophils (%) (Auto) 5.0H, Basophils (%) (Auto) 1.3, Prothrombin Time 10.8, Prothromb Time International Ratio 1.0, Activated Partial Thromboplast Time 29, Sodium Level 141, Potassium Level 5.1, Chloride Level 109H, Carbon Dioxide Level 23, Anion Gap 9, Blood Urea Nitrogen 51H, Creatinine 1.9H, Estimat Glomerular Filtration Rate , Glucose Level 95, Calcium Level 8.7 04/17/18 08:00: Urine Eosinophils Rare Height (Feet): 5 Height (Inches): 3.00 Weight (Pounds): 160 General Appearance: no apparent distress Respiratory/Chest: decreased breath sounds Abdomen: soft Phil Ortiz MD Apr 17, 2018 14:34
--- NOTE | 2018-04-17 14:49 | Immediate Post-Op Evaluation ---
Immediate Post-Op Evalulation Immediate Post-Op Evalulation Procedure: colonoscopy Date of Evaluation: Apr 17, 2018 Time of Evaluation: 13:22 IV Fluids: 125ml 0.9ns Blood Products: none Estimated Blood Loss: negligible Blood Pressure Systolic: 173 Blood Pressure Diastolic: 76 Pulse Rate: 73 Respiratory Rate: 18 O2 Sat by Pulse Oximetry: 100 Temperature (Fahrenheit): 97.7 Pain Score (1-10): 0 Nausea: No Vomiting: No Complications none Patient Status: awake, reacts, patent Hydration Status: adequate Drug: Jaleesa Rodrigeuz MD Apr 17, 2018 14:49
--- NOTE | 2018-04-17 14:51 | 48 Hour Post Anesthesia Eval ---
Post Anesthesia Evaluation Procedure: colonoscopy Date of Evaluation: Apr 17, 2018 Time of Evaluation: 13:24 Blood Pressure Systolic: 182 0: 73 Pulse Rate: 77 Respiratory Rate: 18 Temperature (Fahrenheit): 97.7 O2 Sat by Pulse Oximetry: 100 Airway: patent Nausea: No Vomiting: No Pain Intensity: 0 Hydration Status: adequate Cardiopulmonary Status: stable Mental Status/LOC: patient returned to baseline Post-Anesthesia Complications: none Follow-up care needed: N/A Jaleesa Waite MD Apr 17, 2018 14:51
--- NOTE | 2018-04-17 15:06 | General Progress Note ---
Progress Note Progress Note Patient seen and examined Consult dictated # [id number] Ronny Chisholm MD Apr 17, 2018 15:06
--- NOTE | 2018-04-17 15:07 | Cardiac Electrophysiology PN ---
Assessment/Plan Assessment/Plan 1. Bradycardia with heart rate in the 50s. The patient also history of paroxysmal atrial fibrillation. Keep the patient off any AV miguel angel blocking agent. HR better in 70s now. 2. Paroxysmal atrial fibrillation, off any AV miguel angel justo 3. Hypertension on Norvasc 10 mg daily, Hydralazine and Clonidine patch and p.r.n. clonidine. 4. Dysphagia, status post PEG placement. 5. Right groin mass, was evaluated by Dr. Park, said to be hematoma, likely from prior femoral line insertion given puncture site. Lower extremity duplexes. 6. Unstageable sacral decubitus ulcer on antibiotic. 7. Anemia, S/P colonoscopy DW RN Subjective Subjective Had colonoscopy. Very weak. Objective Last 24 Hour Vital Signs Date Time Temp Pulse Resp B/P (MAP) Pulse Ox O2 Delivery O2 Flow Rate FiO2 04/17/18 14:57 168/86 04/17/18 14:51 77 18 100 04/17/18 14:49 73 18 100 04/17/18 13:50 98.2 76 19 166/78 (107) 97 04/17/18 13:24 77 18 189/69 100 Nasal Cannula 2 04/17/18 13:20 77 18 182/73 100 Simple Mask 8 04/17/18 13:15 77 18 180/70 100 Simple Mask 8 04/17/18 13:10 97.7 73 18 173/76 100 Simple Mask 8 04/17/18 12:00 97.7 79 19 165/77 (106) 97 04/17/18 09:40 155/66 04/17/18 09:39 80 150/66 04/17/18 09:00 Nasal Cannula 2.0 04/17/18 08:00 97.2 82 16 169/69 (102) 97 04/17/18 06:30 86 166/76 (106) 04/17/18 05:30 85 180/70 (106) 04/17/18 04:49 205/75 04/17/18 04:00 97.7 92 16 205/75 (118) 97 04/17/18 00:00 97.5 83 18 163/86 (111) 98 04/16/18 21:00 Nasal Cannula 2.0 04/16/18 20:02 184/79 04/16/18 20:00 97.8 78 16 184/79 (114) 100 04/16/18 16:00 98.0 75 18 135/66 (89) 97 75 Intake and Output 04/16/18 04/17/18 19:00 07:00 Intake Total 770 ml Output Total 1000 ml 350 ml Balance -1000 ml 420 ml IV Total 770 ml Output Urine Total 1000 ml 350 ml # Bowel Movements 3 Laboratory Tests Test 04/16/18 18:28 04/17/18 04:50 04/17/18 08:00 Urine Eosinophils None seen (NONE SEEN) Rare (NONE SEEN) White Blood Count 8.7 K/UL (4.8-10.8) Red Blood Count 3.19 M/UL (4.20-5.40) L Hemoglobin 9.2 G/DL (12.0-16.0) L Hematocrit 28.4 % (37.0-47.0) L Mean Corpuscular Volume 89 FL (80-99) Mean Corpuscular Hemoglobin 29.0 PG (27.0-31.0) Mean Corpuscular Hemoglobin Concent 32.6 G/DL (32.0-36.0) Red Cell Distribution Width 13.7 % (11.6-14.8) Platelet Count 214 K/UL (150-450) Mean Platelet Volume 7.3 FL (6.5-10.1) Neutrophils (%) (Auto) 68.7 % (45.0-75.0) Lymphocytes (%) (Auto) 15.5 % (20.0-45.0) L Monocytes (%) (Auto) 9.5 % (1.0-10.0) Eosinophils (%) (Auto) 5.0 % (0.0-3.0) H Basophils (%) (Auto) 1.3 % (0.0-2.0) Prothrombin Time 10.8 SEC (9.30-11.50) Prothromb Time International Ratio 1.0 (0.9-1.1) Activated Partial Thromboplast Time 29 SEC (23-33) Sodium Level 141 MMOL/L (136-145) Potassium Level 5.1 MMOL/L (3.5-5.1) Chloride Level 109 MMOL/L (98-107) H Carbon Dioxide Level 23 MMOL/L (21-32) Anion Gap 9 mmol/L (5-15) Blood Urea Nitrogen 51 mg/dL (7-18) H Creatinine 1.9 MG/DL (0.55-1.30) H Estimat Glomerular Filtration Rate mL/min (>60) Glucose Level 95 MG/DL (74-106) Calcium Level 8.7 MG/DL (8.5-10.1) Microbiology Date/Time Source Procedure Growth Status 04/14/18 18:50 Blood Blood Culture - Preliminary NO GROWTH AFTER 48 HOURS Resulted 04/14/18 18:45 Blood Blood Culture - Preliminary NO GROWTH AFTER 48 HOURS Resulted 04/14/18 21:00 Nasal Nares MRSA Culture - Final NO METHICILLIN RESISTANT STAPH AUREUS... Complete 04/14/18 19:00 Nasal Nares Influenza Types A,B Antigen (KEVIN) - Final Complete 04/15/18 03:28 Sacral Wound Gram Stain - Final Resulted 04/15/18 03:28 Wound Culture - Preliminary Gram Negative Bacillus 1 Gram Negative Bacillus 2 Gram Negative Bacillus 3 Resulted 04/14/18 21:00 Rectum - Final NO CARBAPENEM-RESISTANT ENTEROBACTERI... Complete 04/14/18 21:00 Rectum VRE Culture - Final Enterococcus Faecium - Vre Complete Objective HEAD AND NECK: No jugular venous distention. LUNGS: Coarse rhonchi. CARDIOVASCULAR: Regular S1 and S2 with no gallop. ABDOMEN: Status post G-tube. EXTREMITIES: No pitting edema. Everett Nair MD Apr 17, 2018 15:07
--- NOTE | 2018-04-17 15:11 | Pulmonology Progress Note ---
Assessment/Plan Problems: (1) Pleural effusion (2) Lung nodule < 6cm on CT (3) Pneumonia (4) Encephalopathy due to metabolic factor or toxin (5) Decubitus ulcer of sacral region, unstageable (6) Hematoma (7) Hypoglycemia (8) Mass of right thigh (9) Abnormal LFTs (10) MARK (acute kidney injury) (11) CKD (chronic kidney disease) (12) Shock (13) Hypertension (14) Sepsis (15) Seizure disorder (16) Anemia (17) PEG (percutaneous endoscopic gastrostomy) status (18) senior care resident (19) Rectal abnormality Assessment/Plan F/U COLONOSOCPY FINDINGS Thoracentesis evaluation Optimize pulmonary hygiene/mobilize as tolerated PRN O2 PRN HHN's Continue Zosyn (D3) per ID F/U Cx's Vascular eval of R groin hematoma and PSA Monitor electrolytes and renal function, consider D/C IVF given b effusion and elevated filling pressures on TTE Wound care TF's DVT Px: Hep SQ DNAR/DNI, continue to discuss GOC, consider supportive care evaluation Subjective Allergies: Coded Allergies: PENICILLINS (Unverified Allergy, Mild, 12/04/12) Subjective AFVSS, O2 needs stable CT reviewed, mod to large b effusions, b sub 5 mm nodules and rectal wall thickening Now S/P colo, sedated No distress, no cough, no FC, chet TF Objective Last 24 Hour Vital Signs Date Time Temp Pulse Resp B/P (MAP) Pulse Ox O2 Delivery O2 Flow Rate FiO2 04/17/18 14:57 168/86 04/17/18 14:51 77 18 100 04/17/18 14:49 73 18 100 04/17/18 13:50 98.2 76 19 166/78 (107) 97 04/17/18 13:24 77 18 189/69 100 Nasal Cannula 2 04/17/18 13:20 77 18 182/73 100 Simple Mask 8 04/17/18 13:15 77 18 180/70 100 Simple Mask 8 04/17/18 13:10 97.7 73 18 173/76 100 Simple Mask 8 04/17/18 12:00 97.7 79 19 165/77 (106) 97 04/17/18 09:40 155/66 04/17/18 09:39 80 150/66 04/17/18 09:00 Nasal Cannula 2.0 04/17/18 08:00 97.2 82 16 169/69 (102) 97 04/17/18 06:30 86 166/76 (106) 04/17/18 05:30 85 180/70 (106) 04/17/18 04:49 205/75 04/17/18 04:00 97.7 92 16 205/75 (118) 97 04/17/18 00:00 97.5 83 18 163/86 (111) 98 04/16/18 21:00 Nasal Cannula 2.0 04/16/18 20:02 184/79 04/16/18 20:00 97.8 78 16 184/79 (114) 100 04/16/18 16:00 98.0 75 18 135/66 (89) 97 75 Intake and Output 04/16/18 04/17/18 19:00 07:00 Intake Total 770 ml Output Total 1000 ml 350 ml Balance -1000 ml 420 ml IV Total 770 ml Output Urine Total 1000 ml 350 ml # Bowel Movements 3 General Appearance: no acute distress, cachetic HEENT: normocephalic, atraumatic, anicteric, mucous membranes moist Respiratory/Chest: chest wall non-tender, lungs clear, crackles/rales - BiB Cardiovascular: normal peripheral pulses, normal rate, regular rhythm Abdomen: normal bowel sounds, soft, non tender, no organomegaly, non distended , no mass, other - T Extremities: no cyanosis, no clubbing, no edema Microbiology Date/Time Source Procedure Growth Status 04/14/18 18:50 Blood Blood Culture - Preliminary NO GROWTH AFTER 48 HOURS Resulted 04/14/18 18:45 Blood Blood Culture - Preliminary NO GROWTH AFTER 48 HOURS Resulted 04/14/18 21:00 Nasal Nares MRSA Culture - Final NO METHICILLIN RESISTANT STAPH AUREUS... Complete 04/14/18 19:00 Nasal Nares Influenza Types A,B Antigen (KEVIN) - Final Complete 04/15/18 03:28 Sacral Wound Gram Stain - Final Resulted 04/15/18 03:28 Wound Culture - Preliminary Gram Negative Bacillus 1 Gram Negative Bacillus 2 Gram Negative Bacillus 3 Resulted 04/14/18 21:00 Rectum - Final NO CARBAPENEM-RESISTANT ENTEROBACTERI... Complete 04/14/18 21:00 Rectum VRE Culture - Final Enterococcus Faecium - Vre Complete Laboratory Tests 04/16/18 18:28: Urine Eosinophils None seen 04/17/18 04:50: White Blood Count 8.7, Red Blood Count 3.19L, Hemoglobin 9.2L, Hematocrit 28.4L , Mean Corpuscular Volume 89, Mean Corpuscular Hemoglobin 29.0, Mean Corpuscular Hemoglobin Concent 32.6, Red Cell Distribution Width 13.7, Platelet Count 214, Mean Platelet Volume 7.3, Neutrophils (%) (Auto) 68.7, Lymphocytes (% ) (Auto) 15.5L, Monocytes (%) (Auto) 9.5, Eosinophils (%) (Auto) 5.0H, Basophils (%) (Auto) 1.3, Prothrombin Time 10.8, Prothromb Time International Ratio 1.0, Activated Partial Thromboplast Time 29, Sodium Level 141, Potassium Level 5.1, Chloride Level 109H, Carbon Dioxide Level 23, Anion Gap 9, Blood Urea Nitrogen 51H, Creatinine 1.9H, Estimat Glomerular Filtration Rate , Glucose Level 95, Calcium Level 8.7 04/17/18 08:00: Urine Eosinophils Rare Current Medications Medications (Trade) Dose Ordered Sig/Gelacio Route PRN Reason Start Time Stop Time Status Last Admin Dose Admin Acetaminophen (Tylenol) 650 mg Q4H PRN RECTAL fever (temp>100.5F) 04/15/18 18:15 05/14/18 22:14 Al Hydroxide/Mg Hydroxide (Mylanta) 15 ml Q1H PRN ORAL gi upset 04/17/18 12:00 04/17/18 20:00 Amlodipine Besylate (Norvasc) 10 mg DAILY ORAL 04/17/18 09:00 05/17/18 08:59 04/17/18 09:39 Atropine Sulfate (Atropine) 0.5 mg Q5M PRN IV bpm less than 45 04/17/18 12:00 04/17/18 20:00 Bisacodyl (Dulcolax) 10 mg DAILYPRN PRN RECTAL Constipation 04/15/18 16:15 05/14/18 16:14 Clonidine HCl (Catapres TTS-3) 1 patch QWEEK TDERMAL 04/17/18 16:00 05/17/18 15:59 Clonidine HCl (Catapres Tab) 0.1 mg Q4H PRN ORAL bp over 165 syst 04/16/18 08:00 1/2/19 07:59 04/17/18 04:49 Dextrose (Dextrose 50%) 25 ml Q30M PRN IV Hypoglycemia 04/15/18 16:30 05/15/18 16:16 Dextrose (Dextrose 50%) 50 ml Q30M PRN IV hypoglycemia 04/15/18 16:30 05/15/18 16:29 Diphenhydramine HCl (Benadryl) 25 mg Q15M PRN IVP Itching 04/17/18 12:00 04/17/18 20:00 Diphenhydramine HCl (Benadryl) 25 mg Q6H PRN GT Itching/Pruritis 04/15/18 16:15 05/14/18 22:14 Docusate Sodium (Colace) 100 mg TID GT 04/16/18 13:00 05/15/18 08:59 04/16/18 17:57 Fentanyl Citrate (Sublimaze 100 mcg/2 mL) 25 mcg Q10M PRN IV Moderate Pain (Pain Scale 4-6) 04/17/18 12:00 04/17/18 20:00 Heparin Sodium (Porcine) (Heparin 5000 units/ml) 5,000 units EVERY 12 HOURS SUBQ 04/15/18 21:00 05/15/18 20:59 04/16/18 10:26 Hydralazine HCl (Apresoline) 5 mg Q30M PRN IV SBP>160 OR___/DBP>90 OR___ 04/17/18 12:00 04/17/18 20:00 Hydralazine HCl (Apresoline) 25 mg Q6H GT 04/17/18 09:00 05/17/18 08:59 04/17/18 14:57 Insulin Aspart (NovoLOG) EVERY 6 HOURS SUBQ 04/15/18 18:00 05/15/18 07:59 04/16/18 17:58 Midazolam HCl (Versed 2mg/2ml vial) 1 mg Q15M PRN IVP For Anxiety 04/17/18 12:00 04/17/18 18:00 Morphine Sulfate (Morphine Sulfate) 1 mg Q3H PRN IVP Breakthrough Pain 04/15/18 16:30 04/22/18 16:29 Morphine Sulfate (Morphine Sulfate) 2 mg Q3H PRN IVP Moderate Pain (Pain Scale 4-6) 04/15/18 16:30 04/22/18 16:29 Ondansetron HCl (Zofran) 4 mg Q1H PRN IVP Nausea & Vomiting 04/17/18 12:00 04/17/18 20:00 Ondansetron HCl (Zofran) 4 mg Q6H PRN IVP Nausea & Vomiting 04/15/18 16:15 05/14/18 22:14 Pantoprazole (Protonix) 40 mg DAILY IV 04/16/18 09:00 05/15/18 08:59 04/17/18 09:19 Piperacillin Sod/ Tazobactam Sod 2.25 gm/Dextrose 55 ml @ 110 mls/hr Q8HR IVPB 04/15/18 22:00 04/22/18 21:59 04/17/18 14:52 Sodium Chloride 1,000 ml @ 10 mls/hr Q24H IVLG 04/17/18 11:58 04/17/18 20:00 Sodium Chloride 1,000 ml @ 50 mls/hr Q20H IV 04/16/18 10:00 05/16/18 09:59 04/17/18 11:55 Javon Gan MD Apr 17, 2018 15:11
[2018-04-17] MEDS ORDERED: Tubing IV Secondary IV ONE (22:53)
--- NOTE | 2018-04-17 23:15 | Consultation ---
DATE OF CONSULTATION: 04/17/2018 VASCULAR SURGERY CONSULTATION CONSULTING PHYSICIAN: Ronny Chisholm M.D. REFERRING PHYSICIAN: Krzysztof Schneider M.D. REASON FOR EVALUATION: Right groin hematoma. HISTORY OF PRESENT COMPLAINT: This is an 82-year-old female, who was transferred reportedly for arrhythmia and renal failure. The patient is nonverbal, has a history of stroke, nonambulatory, and prison resident. The patient was found to have a right groin hematoma. Reportedly, the patient has had right groin catheter placed in other admissions by other physician. The duplex and CT scan noncontrast revealed possible AV fistula or pseudoaneurysm measuring about 3 cm. Vascular Surgery was consulted for further evaluation. PAST MEDICAL HISTORY: As above. Nonverbal, history of organic brain syndrome, dementia, renal failure, diabetes mellitus, noninsulin-dependent, history of seizure disorder, nonambulatory, decubitus wounds, hypertension, and anemia. MEDICATIONS: See attached MAR. ALLERGIES: Penicillin. SOCIAL HISTORY: Unobtainable. FAMILY HISTORY: Unobtainable. REVIEW OF SYSTEMS: Unobtainable. PHYSICAL EXAMINATION: GENERAL: The patient is nonverbal. VITAL SIGNS: Afebrile at 97, heart rate is 64, blood pressure 143/59, and respirations 16. The patient has palpable radial pulses. No evidence of carotid bruits. LUNGS: Clear to auscultation. HEART: Regular rate and rhythm. ABDOMEN: Soft and nontender. She has palpable femoral pulses. She has a right groin flat hematoma with audible bruit. There is no skin necrosis. There are some skin tracks from the prior line placement. EXTREMITIES: There is no leg edema. Feet are warm with intact pedal Dopplers bilaterally. She does have decubitus heel changes without any open wounds. LABORATORY AND DIAGNOSTIC DATA: Laboratory revealed on admission BUN of 80 and creatinine 2.3. WBC 13.8, hemoglobin 9.6, and platelet count 248,000. Duplex and CT scan were reviewed. IMPRESSION: 1. Right femoral hematoma likely from the groin central line catheter placement with possible underlying fistula or pseudoaneurysm on duplex, non-contrast CT. 2. Nonverbal, demented, and nonambulatory with history of renal failure, hypertension, arrhythmia, diabetes mellitus, decubitus changes, calcific PAD. PLAN: We will obtain a dedicated vascular duplex to assess the pseudoaneurysm. The patient will need a followup vascular duplex. If the pseudoaneurysm is enlarging, then we will schedule the patient for percutaneous duplex-guided thrombin injection. The patient is cleared for discharge from Vascular Surgery standpoint and [facility]. Discussed above with the patient's nurse. Continue decubitus and DVT prophylaxis. Ronny Chisholm M.D. DR: CHRIS JOB#: [id number] CC: Ronny Chisholm M.D.; Fax#: [phone] KRZYSZTOF SCHNEIDER M.D. ; FAX#: [phone] [facility]
--- NOTE | 2018-04-17 23:30 | Procedure Note ---
DATE OF PROCEDURE: 04/17/2018 SURGEON: Ruben Post M.D. ANESTHESIOLOGIST: Dr. Nicholson. PROCEDURE PERFORMED: Colonoscopy. ANESTHESIA: Per Dr. Nicholson. INSTRUMENT: Olympus adult flexible colonoscope. INDICATION: Evaluation of possible rectal mass on CT scan. The procedure, risks, benefits, and possible consequences, including hemorrhage, aspiration, perforation and infection, and alternative treatments, were explained to the patient/legal guardian by Dr. Ruben Post and the patient/legal guardian understood and accepted these risks. DESCRIPTION OF PROCEDURE: After informed consent was obtained and the patient was adequately sedated, first rectal exam was performed which was positive for internal hemorrhoids. Then the scope was advanced from the rectum to the area which seems to be ileocecal valve. Could not get to the cecum due to difficulty with progression of the scope into the cecum. Quality of prep overall was good. The patient had evidence of no obvious sources for overt GI bleeding. No obvious mass was seen. No polyps were seen. There were some scattered diverticula in the left colon and as per documented above, medium-sized internal hemorrhoids. SUMMARY OF FINDINGS: 1. Scattered diverticulosis. 2. Internal hemorrhoids. RECOMMENDATIONS: No evidence of any rectal mass at this time. We will resume diet or feeding and monitor closely. I want to thank Dr. Krzysztof Schneider for this kind referral. Ruben Post M.D. DR: DEYA JOB#: [id number] CC: Krzysztof Schneider M.D.; Fax#: [phone]
--- NOTE | 2018-04-17 23:52 | General Progress Note ---
Assessment/Plan Problem List: (1) Encephalopathy due to metabolic factor or toxin SNOMED: 290972670 Status: stable, progressing Subjective Date patient seen: Apr 17, 2018 Neurologic/Psychiatric: Reports: anxiety, depressed, emotional problems Allergies: Coded Allergies: PENICILLINS (Unverified Allergy, Mild, 12/04/12) Objective Last 24 Hour Vital Signs Date Time Temp Pulse Resp B/P (MAP) Pulse Ox O2 Delivery O2 Flow Rate FiO2 04/17/18 21:00 Nasal Cannula 2.0 04/17/18 20:50 160/75 04/17/18 20:00 97.8 82 16 160/75 (103) 100 04/17/18 16:22 154/72 04/17/18 16:00 97.7 79 20 154/72 (99) 97 04/17/18 14:57 168/86 04/17/18 14:51 77 18 100 04/17/18 14:49 73 18 100 04/17/18 13:50 98.2 76 19 166/78 (107) 97 04/17/18 13:30 97.7 77 18 189/69 100 Nasal Cannula 2 04/17/18 13:24 77 18 189/69 100 Nasal Cannula 2 04/17/18 13:20 77 18 182/73 100 Simple Mask 8 04/17/18 13:15 77 18 180/70 100 Simple Mask 8 04/17/18 13:10 97.7 73 18 173/76 100 Simple Mask 8 04/17/18 12:00 97.7 79 19 165/77 (106) 97 04/17/18 09:40 155/66 04/17/18 09:39 80 150/66 04/17/18 09:00 Nasal Cannula 2.0 04/17/18 08:00 97.2 82 16 169/69 (102) 97 04/17/18 06:30 86 166/76 (106) 04/17/18 05:30 85 180/70 (106) 04/17/18 04:49 205/75 04/17/18 04:00 97.7 92 16 205/75 (118) 97 04/17/18 00:00 97.5 83 18 163/86 (111) 98 Intake and Output 04/16/18 04/17/18 18:59 06:59 Intake Total 770 ml Output Total 1000 ml 350 ml Balance -1000 ml 420 ml IV Total 770 ml Output Urine Total 1000 ml 350 ml # Bowel Movements 3 Laboratory Tests 04/17/18 04:50: White Blood Count 8.7, Red Blood Count 3.19L, Hemoglobin 9.2L, Hematocrit 28.4L , Mean Corpuscular Volume 89, Mean Corpuscular Hemoglobin 29.0, Mean Corpuscular Hemoglobin Concent 32.6, Red Cell Distribution Width 13.7, Platelet Count 214, Mean Platelet Volume 7.3, Neutrophils (%) (Auto) 68.7, Lymphocytes (% ) (Auto) 15.5L, Monocytes (%) (Auto) 9.5, Eosinophils (%) (Auto) 5.0H, Basophils (%) (Auto) 1.3, Prothrombin Time 10.8, Prothromb Time International Ratio 1.0, Activated Partial Thromboplast Time 29, Sodium Level 141, Potassium Level 5.1, Chloride Level 109H, Carbon Dioxide Level 23, Anion Gap 9, Blood Urea Nitrogen 51H, Creatinine 1.9H, Estimat Glomerular Filtration Rate , Glucose Level 95, Calcium Level 8.7 04/17/18 08:00: Urine Eosinophils Rare Height (Feet): 5 Height (Inches): 3.00 Weight (Pounds): 160 General Appearance: no apparent distress, alert, confused China Kidd MD Apr 17, 2018 23:52
--- NOTE | 2018-04-17 23:54 | Consultation ---
History of Present Illness General Date patient seen: Apr 16, 2018 Chief Complaint: General Complaint Referring physician: Dr Prabhakar Reason for Consultation: Hypoxemia Present Illness Allergies: Coded Allergies: PENICILLINS (Unverified Allergy, Mild, 12/04/12) Medication History Scheduled Amino Acids/Protein Hydrolys (Pro-Stat Liquid), 30 ML GT DAILY, (Reported) Ascorbic Acid* (Vitamin C*), 500 MG GT TWICE A DAY, (Reported) Aspirin* (Aspir 81*), 81 MG GT DAILY, (Reported) Darbepoetin Homer In Polysorbat (Aranesp), 40 MCG SUBQ qThursday, (Reported) Doxazosin Mesylate (Doxazosin Mesylate), 2 MG ORAL Q12HR, (Reported) Ferrous Sulfate (Ferrous Sulfate), 7.5 ML GT TID, (Reported) Hydralazine Hcl* (Hydralazine Hcl*), 75 MG GT EVERY 6 HOURS, (Reported) Insulin Human NPH (Novolin N), 20 UNITS SUBQ Q12HR, (Reported) Insulin Lispro (Humalog), 3 UNITS SUBQ Q6HR, (Reported) Lansoprazole* (Prevacid*), 30 MG GT Q12HR, (Reported) Levetiracetam (Levetiracetam), 750 MG GT TWICE A DAY, (Reported) Metoprolol Tartrate* (Metoprolol Tartrate*), 50 MG ORAL EVERY 12 HOURS, ( Reported) Multivits W-Min/Ferrous Gluc (Centrum Multivit-Mineral Liq), 5 ML GT DAILY, ( Reported) Nifedipine* (Nifedipine Er*), 60 MG ORAL Q8HR, (Reported) Nitroglycerin (Nitroglycerin Patch), 0.4 MG TD DAILY, (Reported) Nut.tx.impaired Renal Fxn,Soy (Nepro Carb Steady), 45 ML GT DAILY, (Reported) Zinc Gluconate (Zinc Gluconate), 220 MG GT DAILY, (Reported) [Santyl ointment], 250 UNITS TOPIC DAILY, (Reported) Scheduled PRN Acetaminophen* (Acetaminophen 325MG Tablet*), 650 MG GT Q6H PRN for Mild Pain ( Pain Scale 1-3), (Reported) Clonidine Hcl* (Catapres*), 0.1 MG ORAL EVERY 6 HOURS PRN for SBP > 160, ( Reported) Glucagon HCl (Glucagon HCl), 1 MG IJ every 5 minutes x3 PRN for hypoglycemia, ( Reported) Insulin Lispro (Humalog), 0 SUBQ Q6HR PRN for Sliding Scale, (Reported) Ipratropium/Albuterol Sulfate (DuoNeb 0.5-3(2.5)mg/3ml), 3 ML HHN Q4HR PRN for Shortness of Breath, (Reported) Discontinued Medications Acetaminophen With Codeine (T#3) (Tylenol #3 Tab*), 1 TAB ORAL PRN, (Reported) Discontinued Reason: MD discontinued med Amlodipine Besylate (Norvasc), 5 MG GT DAILY, (Reported) Discontinued Reason: MD discontinued med Aspirin/Dipyridamole* (Aggrenox 25 Mg-200 Mg Capsule*), 1 CAP ORAL TWICE A DAY, (Reported) Discontinued Reason: MD discontinued med Atorvastatin Calcium* (Atorvastatin Calcium*), 10 MG GT BEDTIME, (Reported) Discontinued Reason: MD discontinued med Calcium Carbonate/Vitamin D3 (Calcium 500 + Vit D 200 Caplet), 1 EACH PO BID, ( Reported) Discontinued Reason: MD discontinued med Cranberry (Cranberry), 450 MG PO, (Reported) Discontinued Reason: MD discontinued med Dipyridamole/Aspirin (Aggrenox 25 mg-200 mg Capsule), 1 CAP ORAL TWICE A DAY, ( Reported) Discontinued Reason: MD discontinued med Docusate Sodium* (Docusate Sodium*), 100 MG ORAL TWICE A DAY, (Reported) Discontinued Reason: MD discontinued med Gabapentin* (Neurontin*), 100 MG GT THREE TIMES A DAY, (Reported) Discontinued Reason: MD discontinued med Insulin Detemir (Levemir Flexpen), 12 UNIT SUBQ Q12HR, (Reported) Discontinued Reason: MD discontinued med Insulin Detemir (Levemir), 30 SUBQ BEDTIME, (Reported) Discontinued Reason: MD discontinued med Losartan Potassium* (Cozaar*), 50 MG ORAL TWICE A DAY, (Reported) Discontinued Reason: MD discontinued med Mag Hydrox/Al Hydrox/Simeth (Alum-Mag Hydroxide-Simeth Liq), 360 ML PO, ( Reported) Discontinued Reason: MD discontinued med Meclizine Hcl* (Meclizine*), 25 MG ORAL THREE TIMES A DAY, (Reported) Discontinued Reason: MD discontinued med Pantoprazole (Pantoprazole), 40 MG GT DAILY, (Reported) Discontinued Reason: MD discontinued med Polyethylene Glycol 3350* (Miralax*), 17 GM ORAL HS, (Reported) Discontinued Reason: MD discontinued med Polyethylene Glycol 3350* (Miralax*), 17 GM ORAL DAILY, (Reported) Discontinued Reason: MD discontinued med Potassium (Potassium), 8 MEQ PO DAILY, (Reported) Discontinued Reason: MD discontinued med Sennosides (Patti-Elpidio), 8.6 MG PO, (Reported) Discontinued Reason: MD discontinued med Sucralfate* (Carafate*), 1 GM GT TID, (Reported) Discontinued Reason: MD discontinued med Vit B Cmplx 3/Fa/Vit C/Biotin (Sasha-Hannah Rx Tablet), 1 EACH PO DAILY, (Reported) Discontinued Reason: MD discontinued med Zolpidem Tartrate* (Ambien*), 5 MG ORAL BEDTIME PRN for Insomnia, (Reported) Discontinued Reason: MD discontinued med Patient History Healthcare decision maker Raven Gonzalez Resuscitation status Do Not Intubate Advanced Directive on File Physical Exam Last 24 Hour Vital Signs Date Time Temp Pulse Resp B/P (MAP) Pulse Ox O2 Delivery O2 Flow Rate FiO2 04/17/18 21:00 Nasal Cannula 2.0 04/17/18 20:50 160/75 04/17/18 20:00 97.8 82 16 160/75 (103) 100 04/17/18 16:22 154/72 04/17/18 16:00 97.7 79 20 154/72 (99) 97 04/17/18 14:57 168/86 04/17/18 14:51 77 18 100 04/17/18 14:49 73 18 100 04/17/18 13:50 98.2 76 19 166/78 (107) 97 04/17/18 13:30 97.7 77 18 189/69 100 Nasal Cannula 2 04/17/18 13:24 77 18 189/69 100 Nasal Cannula 2 04/17/18 13:20 77 18 182/73 100 Simple Mask 8 04/17/18 13:15 77 18 180/70 100 Simple Mask 8 04/17/18 13:10 97.7 73 18 173/76 100 Simple Mask 8 04/17/18 12:00 97.7 79 19 165/77 (106) 97 04/17/18 09:40 155/66 04/17/18 09:39 80 150/66 04/17/18 09:00 Nasal Cannula 2.0 04/17/18 08:00 97.2 82 16 169/69 (102) 97 04/17/18 06:30 86 166/76 (106) 04/17/18 05:30 85 180/70 (106) 04/17/18 04:49 205/75 04/17/18 04:00 97.7 92 16 205/75 (118) 97 04/17/18 00:00 97.5 83 18 163/86 (111) 98 Intake and Output 04/16/18 04/17/18 19:00 07:00 Intake Total 770 ml Output Total 1000 ml 350 ml Balance -1000 ml 420 ml IV Total 770 ml Output Urine Total 1000 ml 350 ml # Bowel Movements 3 Laboratory Tests Test 04/17/18 04:50 04/17/18 08:00 White Blood Count 8.7 K/UL (4.8-10.8) Red Blood Count 3.19 M/UL (4.20-5.40) L Hemoglobin 9.2 G/DL (12.0-16.0) L Hematocrit 28.4 % (37.0-47.0) L Mean Corpuscular Volume 89 FL (80-99) Mean Corpuscular Hemoglobin 29.0 PG (27.0-31.0) Mean Corpuscular Hemoglobin Concent 32.6 G/DL (32.0-36.0) Red Cell Distribution Width 13.7 % (11.6-14.8) Platelet Count 214 K/UL (150-450) Mean Platelet Volume 7.3 FL (6.5-10.1) Neutrophils (%) (Auto) 68.7 % (45.0-75.0) Lymphocytes (%) (Auto) 15.5 % (20.0-45.0) L Monocytes (%) (Auto) 9.5 % (1.0-10.0) Eosinophils (%) (Auto) 5.0 % (0.0-3.0) H Basophils (%) (Auto) 1.3 % (0.0-2.0) Prothrombin Time 10.8 SEC (9.30-11.50) Prothromb Time International Ratio 1.0 (0.9-1.1) Activated Partial Thromboplast Time 29 SEC (23-33) Sodium Level 141 MMOL/L (136-145) Potassium Level 5.1 MMOL/L (3.5-5.1) Chloride Level 109 MMOL/L (98-107) H Carbon Dioxide Level 23 MMOL/L (21-32) Anion Gap 9 mmol/L (5-15) Blood Urea Nitrogen 51 mg/dL (7-18) H Creatinine 1.9 MG/DL (0.55-1.30) H Estimat Glomerular Filtration Rate mL/min (>60) Glucose Level 95 MG/DL (74-106) Calcium Level 8.7 MG/DL (8.5-10.1) Urine Eosinophils Rare (NONE SEEN) Height (Feet): 5 Height (Inches): 3.00 Weight (Pounds): 160 Medications Current Medications Medications (Trade) Dose Ordered Sig/Gelacio Route PRN Reason Start Time Stop Time Status Last Admin Dose Admin Acetaminophen (Tylenol) 650 mg Q4H PRN RECTAL fever (temp>100.5F) 04/15/18 18:15 05/14/18 22:14 Amlodipine Besylate (Norvasc) 10 mg DAILY ORAL 04/17/18 09:00 05/17/18 08:59 04/17/18 09:39 Bisacodyl (Dulcolax) 10 mg DAILYPRN PRN RECTAL Constipation 04/15/18 16:15 05/14/18 16:14 Clonidine HCl (Catapres TTS-3) 1 patch QWEEK TDERMAL 04/17/18 16:00 05/17/18 15:59 04/17/18 16:22 Clonidine HCl (Catapres Tab) 0.1 mg Q4H PRN ORAL bp over 165 syst 04/16/18 08:00 05/16/18 07:59 04/17/18 04:49 Dextrose (Dextrose 50%) 25 ml Q30M PRN IV Hypoglycemia 04/15/18 16:30 05/15/18 16:16 Dextrose (Dextrose 50%) 50 ml Q30M PRN IV hypoglycemia 04/15/18 16:30 05/15/18 16:29 Diphenhydramine HCl (Benadryl) 25 mg Q6H PRN GT Itching/Pruritis 04/15/18 16:15 05/14/18 22:14 Docusate Sodium (Colace) 100 mg TID GT 04/16/18 13:00 05/15/18 08:59 04/17/18 17:19 Heparin Sodium (Porcine) (Heparin 5000 units/ml) 5,000 units EVERY 12 HOURS SUBQ 04/15/18 21:00 05/15/18 20:59 04/17/18 20:51 Hydralazine HCl (Apresoline) 25 mg Q6H GT 04/17/18 09:00 05/17/18 08:59 04/17/18 20:50 Insulin Aspart (NovoLOG) EVERY 6 HOURS SUBQ 04/15/18 18:00 05/15/18 07:59 04/16/18 17:58 Morphine Sulfate (Morphine Sulfate) 1 mg Q3H PRN IVP Breakthrough Pain 04/15/18 16:30 04/22/18 16:29 Morphine Sulfate (Morphine Sulfate) 2 mg Q3H PRN IVP Moderate Pain (Pain Scale 4-6) 04/15/18 16:30 04/22/18 16:29 Ondansetron HCl (Zofran) 4 mg Q6H PRN IVP Nausea & Vomiting 04/15/18 16:15 05/14/18 22:14 Pantoprazole (Protonix) 40 mg DAILY IV 04/16/18 09:00 05/15/18 08:59 04/17/18 09:19 Piperacillin Sod/ Tazobactam Sod 2.25 gm/Dextrose 55 ml @ 110 mls/hr Q8HR IVPB 04/15/18 22:00 04/22/18 21:59 04/17/18 22:19 Sodium Chloride 1,000 ml @ 50 mls/hr Q20H IV 04/16/18 10:00 05/16/18 09:59 04/17/18 11:55 Assessment/Plan Problem List: (1) Encephalopathy due to metabolic factor or toxin SNOMED: 660194722 China Kidd MD Apr 17, 2018 23:53
[2018-04-18] VITALS (8 sets, daily range): BP systolic 149–179; BP diastolic 60–79
[2018-04-18] MEDS: HydrALAZINE 25mg tab GT SCH ×5 (02:22→20:23)
[2018-04-18] MEDS: NovoLOG Insulin Flexpen SUBQ SCH ×5 (05:09→23:44)
[2018-04-18] MEDS: Piperacillin/Tazobactam 2.25 GM in D5W 55 ML IVPB SCH ×3 (05:09→20:23)
--- NOTE | 2018-04-18 07:01 | General Progress Note ---
Assessment/Plan Assessment/Plan # Anemia of chronic disease -- baseline appears to be 10-11 reviewed labs from 2013 --> at this time decreased, anemia panel has been ordered on prior admission and c/w acd --> transfuse as needed, hgb goal >7 --> no evidence of hemolysis noted # Leukocytosis likely related to septic shock --> on abx and ivf --> appreciate ID recs and workup --> surg recs reviewed # Hematoma of the right groin -- 5.1 x 6.6 x 20 cm hyperattenuating right proximal thigh mass. --> vasc surgery eval with duplex to r/o pseudoaneurysm # Abnormal LFTs --> likely shock liver from overt sepsis. --> trend labs # Decubitus ulcer of sacral region, unstageable, 5cm x 4cm unstagable sacral decubitus ulcer, no drainage, mild periedge edema/erythema, soft, no odor present upon admission. will be cared for during hospital sta --> surg eval # Severe sepsis --> on abx as per ID # Respiratory failure withc coarse rhonchi --> thora evaluation --> as per pulm Greatly appreciate consultation! Subjective Constitutional: Denies: no symptoms, chills, diaphoresis, fever, malaise, weakness, other HEENT: Denies: no symptoms, eye pain, blurred vision, tearing, double vision, ear pain, ear discharge, nose pain, nose congestion, throat pain, throat swelling, mouth pain, mouth swelling, other Cardiovascular: Denies: no symptoms, chest pain, edema, irregular heart rate, lightheadedness, palpitations, syncope, other Respiratory: Denies: no symptoms, cough, orthopnea, shortness of breath, SOB with excertion, SOB at rest, sputum, stridor, wheezing, other Gastrointestinal/Abdominal: Denies: no symptoms, abdomen distended, abdominal pain, black stools, tarry stools, blood in stool, constipated, diarrhea, difficulty swallowing, nausea, poor appetite, poor fluid intake, rectal bleeding , vomiting, other Genitourinary: Denies: no symptoms, burning, discharge, frequency, flank pain, hematuria, incontinence, pain, urgency, other Endocrine: Denies: no symptoms, excessive sweating, flushing, intolerance to cold, intolerance to heat, increased hunger, increased thirst, increased urine, unexplained weight gain, unexplained weight loss, other Allergies: Coded Allergies: PENICILLINS (Unverified Allergy, Mild, 12/04/12) Subjective no events, no f/c, no events noted Objective Last 24 Hour Vital Signs Date Time Temp Pulse Resp B/P (MAP) Pulse Ox O2 Delivery O2 Flow Rate FiO2 04/18/18 04:00 98.1 85 18 159/79 (105) 100 04/18/18 02:22 166/69 04/18/18 00:00 97.6 76 16 157/69 (98) 99 04/17/18 21:00 Nasal Cannula 2.0 04/17/18 20:50 160/75 04/17/18 20:00 97.8 82 16 160/75 (103) 100 04/17/18 16:22 154/72 04/17/18 16:00 97.7 79 20 154/72 (99) 97 04/17/18 14:57 168/86 04/17/18 14:51 77 18 100 04/17/18 14:49 73 18 100 04/17/18 13:50 98.2 76 19 166/78 (107) 97 04/17/18 13:30 97.7 77 18 189/69 100 Nasal Cannula 2 04/17/18 13:24 77 18 189/69 100 Nasal Cannula 2 04/17/18 13:20 77 18 182/73 100 Simple Mask 8 04/17/18 13:15 77 18 180/70 100 Simple Mask 8 04/17/18 13:10 97.7 73 18 173/76 100 Simple Mask 8 04/17/18 12:00 97.7 79 19 165/77 (106) 97 04/17/18 09:40 155/66 04/17/18 09:39 80 150/66 04/17/18 09:00 Nasal Cannula 2.0 04/17/18 08:00 97.2 82 16 169/69 (102) 97 Intake and Output 04/17/18 04/18/18 18:59 06:59 Intake Total 695 ml 880 ml Output Total 1700 ml 700 ml Balance -1005 ml 180 ml Intake Free Water 100 ml 100 ml IV Total 555 ml 720 ml Tube Feeding 40 ml 60 ml Output Urine Total 1700 ml 700 ml # Bowel Movements 2 Laboratory Tests 04/17/18 08:00: Urine Eosinophils Rare 04/18/18 04:00: Urine Eosinophils [Pending] Height (Feet): 5 Height (Inches): 3.00 Weight (Pounds): 169 General Appearance: lethargic EENT: TMs normal Neck: supple Cardiovascular: regular rhythm Respiratory/Chest: crackles/rales, rhonchi - left, rhonchi - right Abdomen: no organomegaly Edema: mild edema Neurologic: alert Aleksandr Kern MD Apr 18, 2018 07:01
--- NOTE | 2018-04-18 07:26 | General Progress Note ---
Assessment/Plan Problem List: (1) Hypoglycemia ICD Codes: E16.2 - Hypoglycemia, unspecified SNOMED: 622444145 (2) CKD (chronic kidney disease) ICD Codes: N18.9 - Chronic kidney disease, unspecified SNOMED: 533073981 (3) Encephalopathy due to metabolic factor or toxin SNOMED: 107360097 (4) Hypertension ICD Codes: I10 - Essential (primary) hypertension SNOMED: 24469608 Assessment/Plan continue TF continue IVF NISS low dose every 6 hours Subjective Allergies: Coded Allergies: PENICILLINS (Unverified Allergy, Mild, 12/04/12) Subjective events noted Objective Last 24 Hour Vital Signs Date Time Temp Pulse Resp B/P (MAP) Pulse Ox O2 Delivery O2 Flow Rate FiO2 04/18/18 04:00 98.1 85 18 159/79 (105) 100 04/18/18 02:22 166/69 04/18/18 00:00 97.6 76 16 157/69 (98) 99 04/17/18 21:00 Nasal Cannula 2.0 04/17/18 20:50 160/75 04/17/18 20:00 97.8 82 16 160/75 (103) 100 04/17/18 16:22 154/72 04/17/18 16:00 97.7 79 20 154/72 (99) 97 04/17/18 14:57 168/86 04/17/18 14:51 77 18 100 04/17/18 14:49 73 18 100 04/17/18 13:50 98.2 76 19 166/78 (107) 97 04/17/18 13:30 97.7 77 18 189/69 100 Nasal Cannula 2 04/17/18 13:24 77 18 189/69 100 Nasal Cannula 2 04/17/18 13:20 77 18 182/73 100 Simple Mask 8 04/17/18 13:15 77 18 180/70 100 Simple Mask 8 04/17/18 13:10 97.7 73 18 173/76 100 Simple Mask 8 04/17/18 12:00 97.7 79 19 165/77 (106) 97 04/17/18 09:40 155/66 04/17/18 09:39 80 150/66 04/17/18 09:00 Nasal Cannula 2.0 04/17/18 08:00 97.2 82 16 169/69 (102) 97 Intake and Output 12/4/18 12/5/18 18:59 06:59 Intake Total 695 ml 880 ml Output Total 1700 ml 700 ml Balance -1005 ml 180 ml Intake Free Water 100 ml 100 ml IV Total 555 ml 720 ml Tube Feeding 40 ml 60 ml Output Urine Total 1700 ml 700 ml # Bowel Movements 2 Laboratory Tests 04/17/18 08:00: Urine Eosinophils Rare 04/18/18 04:00: Urine Eosinophils [Pending] Height (Feet): 5 Height (Inches): 3.00 Weight (Pounds): 169 General Appearance: no apparent distress Neck: normal alignment Cardiovascular: normal rate Respiratory/Chest: lungs clear Abdomen: normal bowel sounds Objective Current Medications Medications (Trade) Dose Ordered Sig/Gelacio Route PRN Reason Start Time Stop Time Status Last Admin Dose Admin Acetaminophen (Tylenol) 650 mg Q4H PRN RECTAL fever (temp>100.5F) 04/15/18 18:15 05/14/18 22:14 Amlodipine Besylate (Norvasc) 10 mg DAILY ORAL 04/17/18 09:00 05/17/18 08:59 04/17/18 09:39 Bisacodyl (Dulcolax) 10 mg DAILYPRN PRN RECTAL Constipation 04/15/18 16:15 05/14/18 16:14 Clonidine HCl (Catapres TTS-3) 1 patch QWEEK TDERMAL 04/17/18 16:00 05/17/18 15:59 04/17/18 16:22 Clonidine HCl (Catapres Tab) 0.1 mg Q4H PRN ORAL bp over 165 syst 04/16/18 08:00 05/16/18 07:59 04/17/18 04:49 Dextrose (Dextrose 50%) 25 ml Q30M PRN IV Hypoglycemia 04/15/18 16:30 05/15/18 16:16 Dextrose (Dextrose 50%) 50 ml Q30M PRN IV hypoglycemia 04/15/18 16:30 05/15/18 16:29 Diphenhydramine HCl (Benadryl) 25 mg Q6H PRN GT Itching/Pruritis 04/15/18 16:15 05/14/18 22:14 Docusate Sodium (Colace) 100 mg TID GT 04/16/18 13:00 05/15/18 08:59 12/4/18 17:19 Heparin Sodium (Porcine) (Heparin 5000 units/ml) 5,000 units EVERY 12 HOURS SUBQ 04/15/18 21:00 05/15/18 20:59 04/17/18 20:51 Hydralazine HCl (Apresoline) 25 mg Q6H GT 04/17/18 09:00 05/17/18 08:59 04/18/18 02:22 Insulin Aspart (NovoLOG) EVERY 6 HOURS SUBQ 04/15/18 18:00 05/15/18 07:59 04/18/18 05:09 Morphine Sulfate (Morphine Sulfate) 1 mg Q3H PRN IVP Breakthrough Pain 04/15/18 16:30 04/22/18 16:29 Morphine Sulfate (Morphine Sulfate) 2 mg Q3H PRN IVP Moderate Pain (Pain Scale 4-6) 04/15/18 16:30 04/22/18 16:29 Ondansetron HCl (Zofran) 4 mg Q6H PRN IVP Nausea & Vomiting 04/15/18 16:15 05/14/18 22:14 Pantoprazole (Protonix) 40 mg DAILY IV 04/16/18 09:00 05/15/18 08:59 04/17/18 09:19 Piperacillin Sod/ Tazobactam Sod 2.25 gm/Dextrose 55 ml @ 110 mls/hr Q8HR IVPB 04/15/18 22:00 04/22/18 21:59 04/18/18 05:09 Sodium Chloride 1,000 ml @ 50 mls/hr Q20H IV 04/16/18 10:00 05/16/18 09:59 04/17/18 11:55 Item Value Date Time Bedside Blood Glucose 166 mg/dl H 04/18/18 0600 Bedside Blood Glucose 131 mg/dl H 04/18/18 0000 Bedside Blood Glucose 105 mg/dl 04/17/18 1743 Bedside Blood Glucose 109 mg/dl 04/17/18 1155 Bedside Blood Glucose 104 mg/dl 04/17/18 0600 Bedside Blood Glucose 90 mg/dl 04/17/18 0009 Awais Badillo MD Apr 18, 2018 07:26
[2018-04-18 08:23] LABS: BASOPHILS % (AUTO) 1.3 % (0.0-2.0); EOSINOPHILS % (AUTO) 5.1 % (0.0-3.0); HEMOGLOBIN 9.7 G/DL (12.0-16.0); MEAN CORPUSCULAR VOLUME 89 FL (80-99); MONOCYTES % (AUTO) 7.9 % (1.0-10.0); NEUTROPHILS % (AUTO) 73.8 % (45.0-75.0); PLATELET COUNT 212 K/UL (150-450); RED BLOOD COUNT 3.37 M/UL (4.20-5.40); RED CELL DISTRIBUTION WIDTH 13.7 % (11.6-14.8); WHITE BLOOD COUNT 10.1 K/UL (4.8-10.8)
[2018-04-18 08:47] LABS: ANION GAP 8 mmol/L (5-15); BLOOD UREA NITROGEN 44 mg/dL (7-18); CALCIUM 9.1 MG/DL (8.5-10.1); CARBON DIOXIDE 23 MMOL/L (21-32); CHLORIDE 109 MMOL/L (98-107); CREATININE 1.8 MG/DL (0.55-1.30); POTASSIUM 5.1 MMOL/L (3.5-5.1); SODIUM 140 MMOL/L (136-145)
[2018-04-18] MEDS: Docusate 100mg/10ml Liq GT SCH ×3 (09:35→17:39)
[2018-04-18] MEDS: Heparin 5000 units/ml inj SUBQ SCH ×2 (09:37→20:30)
--- NOTE | 2018-04-18 09:41 | General Progress Note ---
Assessment/Plan Problem List: (1) Anemia ICD Codes: D64.9 - Anemia, unspecified SNOMED: 774073231 (2) Seizure disorder ICD Codes: G40.909 - Epilepsy, unspecified, not intractable, without status epilepticus SNOMED: 218256474 (3) Hypertension ICD Codes: I10 - Essential (primary) hypertension SNOMED: 15030033 (4) CKD (chronic kidney disease) ICD Codes: N18.9 - Chronic kidney disease, unspecified SNOMED: 197647992 (5) Hematoma ICD Codes: T14.8XXA - Other injury of unspecified body region, initial encounter SNOMED: 056698758 (6) Decubitus ulcer of sacral region, unstageable ICD Codes: L89.150 - Pressure ulcer of sacral region, unstageable SNOMED: 719413380, 901646151 (7) Diabetic nephropathy ICD Codes: E11.21 - Type 2 diabetes mellitus with diabetic nephropathy SNOMED: 47549935, 096502034 (8) PEG (percutaneous endoscopic gastrostomy) status ICD Codes: Z93.1 - Gastrostomy status SNOMED: 021764997, 201213787 (9) [facility] resident ICD Codes: Z59.3 - Problems related to living in residential institution SNOMED: 554414178 (10) Rectal abnormality ICD Codes: K62.9 - Disease of anus and rectum, unspecified SNOMED: 4850037 Assessment/Plan s/p colonoscopy>>> no rectal mass seen GTF fu labs dc planning per primary team Subjective ROS Limited/Unobtainable: No Allergies: Coded Allergies: PENICILLINS (Unverified Allergy, Mild, 12/04/12) Objective Last 24 Hour Vital Signs Date Time Temp Pulse Resp B/P (MAP) Pulse Ox O2 Delivery O2 Flow Rate FiO2 04/18/18 09:35 200/68 04/18/18 09:33 75 200/68 04/18/18 08:00 97.7 78 18 152/69 (96) 100 04/18/18 04:00 98.1 85 18 159/79 (105) 100 04/18/18 02:22 166/69 04/18/18 00:00 97.6 76 16 157/69 (98) 99 04/17/18 21:00 Nasal Cannula 2.0 04/17/18 20:50 160/75 04/17/18 20:00 97.8 82 16 160/75 (103) 100 04/17/18 16:22 154/72 04/17/18 16:00 97.7 79 20 154/72 (99) 97 04/17/18 14:57 168/86 04/17/18 14:51 77 18 100 04/17/18 14:49 73 18 100 04/17/18 13:50 98.2 76 19 166/78 (107) 97 04/17/18 13:30 97.7 77 18 189/69 100 Nasal Cannula 2 04/17/18 13:24 77 18 189/69 100 Nasal Cannula 2 04/17/18 13:20 77 18 182/73 100 Simple Mask 8 04/17/18 13:15 77 18 180/70 100 Simple Mask 8 04/17/18 13:10 97.7 73 18 173/76 100 Simple Mask 8 04/17/18 12:00 97.7 79 19 165/77 (106) 97 04/17/18 09:40 155/66 Intake and Output 04/17/18 04/18/18 19:00 07:00 Intake Total 695 ml 880 ml Output Total 1700 ml 700 ml Balance -1005 ml 180 ml Intake Free Water 100 ml 100 ml IV Total 555 ml 720 ml Tube Feeding 40 ml 60 ml Output Urine Total 1700 ml 700 ml # Bowel Movements 2 Laboratory Tests 04/18/18 04:00: Urine Eosinophils Few seen 04/18/18 06:50: White Blood Count 10.1, Red Blood Count 3.37L, Hemoglobin 9.7L, Hematocrit 30.0L , Mean Corpuscular Volume 89, Mean Corpuscular Hemoglobin 28.8, Mean Corpuscular Hemoglobin Concent 32.4, Red Cell Distribution Width 13.7, Platelet Count 212, Mean Platelet Volume 7.7, Neutrophils (%) (Auto) 73.8, Lymphocytes (% ) (Auto) 12.0L, Monocytes (%) (Auto) 7.9, Eosinophils (%) (Auto) 5.1H, Basophils (%) (Auto) 1.3, Sodium Level 140, Potassium Level 5.1, Chloride Level 109H, Carbon Dioxide Level 23, Anion Gap 8, Blood Urea Nitrogen 44H, Creatinine 1.8H, Estimat Glomerular Filtration Rate , Glucose Level 155H, Calcium Level 9.1 Height (Feet): 5 Height (Inches): 3.00 Weight (Pounds): 169 General Appearance: lethargic EENT: normal ENT inspection Neck: supple Cardiovascular: normal rate Respiratory/Chest: decreased breath sounds Abdomen: normal bowel sounds, non tender, soft Extremities: non-tender Ruben Post MD Apr 18, 2018 09:41
[2018-04-18] MEDS: Pantoprazole Inj IV SCH (11:08)
--- NOTE | 2018-04-18 11:21 | Infectious Diseases Prog Note ---
Assessment/Plan Assessment/Plan A: 1. Sepsis/ Systemic inflammatory response syndrome with hypoglycemia, 2. pneumonia. 3. Diabetes mellitus. 4. Chronic kidney disease. 5. Anemia. 6. Seizure disorder. 7. Right thigh hematoma with central pseudoaneurysm 8. Diverticulosis & internal hemorrhoids P: Continue Zosyn will f/u cultures Subjective ROS Limited/Unobtainable: Yes Constitutional: Reports: no symptoms Gastrointestinal/Abdominal: Reports: other - had colonoscopy yesterday Allergies: Coded Allergies: PENICILLINS (Unverified Allergy, Mild, 12/04/12) Objective Vital Signs Last 24 Hour Vital Signs Date Time Temp Pulse Resp B/P (MAP) Pulse Ox O2 Delivery O2 Flow Rate FiO2 04/18/18 10:50 97.9 82 18 179/65 (103) 100 04/18/18 09:35 200/68 04/18/18 09:33 75 200/68 04/18/18 08:00 97.7 78 18 152/69 (96) 100 04/18/18 04:00 98.1 85 18 159/79 (105) 100 04/18/18 02:22 166/69 04/18/18 00:00 97.6 76 16 157/69 (98) 99 04/17/18 21:00 Nasal Cannula 2.0 04/17/18 20:50 160/75 04/17/18 20:00 97.8 82 16 160/75 (103) 100 04/17/18 16:22 154/72 04/17/18 16:00 97.7 79 20 154/72 (99) 97 04/17/18 14:57 168/86 04/17/18 14:51 77 18 100 04/17/18 14:49 73 18 100 04/17/18 13:50 98.2 76 19 166/78 (107) 97 04/17/18 13:30 97.7 77 18 189/69 100 Nasal Cannula 2 04/17/18 13:24 77 18 189/69 100 Nasal Cannula 2 04/17/18 13:20 77 18 182/73 100 Simple Mask 8 04/17/18 13:15 77 18 180/70 100 Simple Mask 8 04/17/18 13:10 97.7 73 18 173/76 100 Simple Mask 8 04/17/18 12:00 97.7 79 19 165/77 (106) 97 Height (Feet): 5 Height (Inches): 3.00 Weight (Pounds): 169 General Appearance: no acute distress HEENT: mucous membranes moist Respiratory/Chest: lungs clear Cardiovascular: normal rate Abdomen: soft, non tender, other - GT feeding Extremities: no edema, other - R groin hard mass Neurologic/Psychiatric: aphasia Laboratory Tests Test 04/18/18 04:00 04/18/18 06:50 Urine Eosinophils Few seen (NONE SEEN) White Blood Count 10.1 K/UL (4.8-10.8) Red Blood Count 3.37 M/UL (4.20-5.40) L Hemoglobin 9.7 G/DL (12.0-16.0) L Hematocrit 30.0 % (37.0-47.0) L Mean Corpuscular Volume 89 FL (80-99) Mean Corpuscular Hemoglobin 28.8 PG (27.0-31.0) Mean Corpuscular Hemoglobin Concent 32.4 G/DL (32.0-36.0) Red Cell Distribution Width 13.7 % (11.6-14.8) Platelet Count 212 K/UL (150-450) Mean Platelet Volume 7.7 FL (6.5-10.1) Neutrophils (%) (Auto) 73.8 % (45.0-75.0) Lymphocytes (%) (Auto) 12.0 % (20.0-45.0) L Monocytes (%) (Auto) 7.9 % (1.0-10.0) Eosinophils (%) (Auto) 5.1 % (0.0-3.0) H Basophils (%) (Auto) 1.3 % (0.0-2.0) Sodium Level 140 MMOL/L (136-145) Potassium Level 5.1 MMOL/L (3.5-5.1) Chloride Level 109 MMOL/L (98-107) H Carbon Dioxide Level 23 MMOL/L (21-32) Anion Gap 8 mmol/L (5-15) Blood Urea Nitrogen 44 mg/dL (7-18) H Creatinine 1.8 MG/DL (0.55-1.30) H Estimat Glomerular Filtration Rate mL/min (>60) Glucose Level 155 MG/DL (74-106) H Calcium Level 9.1 MG/DL (8.5-10.1) Current Medications Medications (Trade) Dose Ordered Sig/Gelacio Route PRN Reason Start Time Stop Time Status Last Admin Dose Admin Acetaminophen (Tylenol) 650 mg Q4H PRN RECTAL fever (temp>100.5F) 04/15/18 18:15 05/14/18 22:14 Amlodipine Besylate (Norvasc) 10 mg DAILY ORAL 04/17/18 09:00 05/17/18 08:59 04/18/18 09:33 Bisacodyl (Dulcolax) 10 mg DAILYPRN PRN RECTAL Constipation 04/15/18 16:15 05/14/18 16:14 Clonidine HCl (Catapres TTS-3) 1 patch QWEEK TDERMAL 04/17/18 16:00 05/17/18 15:59 04/17/18 16:22 Clonidine HCl (Catapres Tab) 0.1 mg Q4H PRN ORAL bp over 165 syst 04/16/18 08:00 05/16/18 07:59 04/17/18 04:49 Dextrose (Dextrose 50%) 25 ml Q30M PRN IV Hypoglycemia 04/15/18 16:30 05/15/18 16:16 Dextrose (Dextrose 50%) 50 ml Q30M PRN IV hypoglycemia 04/15/18 16:30 05/15/18 16:29 Diphenhydramine HCl (Benadryl) 25 mg Q6H PRN GT Itching/Pruritis 04/15/18 16:15 05/14/18 22:14 Docusate Sodium (Colace) 100 mg TID GT 04/16/18 13:00 05/15/18 08:59 04/18/18 09:35 Heparin Sodium (Porcine) (Heparin 5000 units/ml) 5,000 units EVERY 12 HOURS SUBQ 04/15/18 21:00 05/15/18 20:59 04/18/18 09:37 Hydralazine HCl (Apresoline) 25 mg Q6H GT 04/17/18 09:00 05/17/18 08:59 04/18/18 09:35 Insulin Aspart (NovoLOG) EVERY 6 HOURS SUBQ 04/15/18 18:00 05/15/18 07:59 04/18/18 05:09 Morphine Sulfate (Morphine Sulfate) 1 mg Q3H PRN IVP Breakthrough Pain 04/15/18 16:30 04/22/18 16:29 Morphine Sulfate (Morphine Sulfate) 2 mg Q3H PRN IVP Moderate Pain (Pain Scale 4-6) 04/15/18 16:30 04/22/18 16:29 Ondansetron HCl (Zofran) 4 mg Q6H PRN IVP Nausea & Vomiting 04/15/18 16:15 05/14/18 22:14 Pantoprazole (Protonix) 40 mg DAILY IV 04/16/18 09:00 05/15/18 08:59 04/18/18 11:08 Piperacillin Sod/ Tazobactam Sod 2.25 gm/Dextrose 55 ml @ 110 mls/hr Q8HR IVPB 04/15/18 22:00 04/22/18 21:59 04/18/18 05:09 Sodium Chloride 1,000 ml @ 50 mls/hr Q20H IV 04/16/18 10:00 05/16/18 09:59 04/17/18 11:55 Wilder French MD Apr 18, 2018 11:21
--- NOTE | 2018-04-18 11:35 | General Progress Note ---
Assessment/Plan Problem List: (1) CKD (chronic kidney disease) ICD Codes: N18.9 - Chronic kidney disease, unspecified SNOMED: 833758038 (2) Sepsis ICD Codes: A41.9 - Sepsis, unspecified organism SNOMED: 35217813 (3) Seizure disorder ICD Codes: G40.909 - Epilepsy, unspecified, not intractable, without status epilepticus SNOMED: 686823105 (4) Anemia ICD Codes: D64.9 - Anemia, unspecified SNOMED: 851675825 (5) MARK (acute kidney injury) ICD Codes: N17.9 - Acute kidney failure, unspecified SNOMED: 96484183 (6) Mass of right thigh ICD Codes: R22.41 - Localized swelling, mass and lump, right lower limb SNOMED: 459226100 (7) Hematoma ICD Codes: T14.8XXA - Other injury of unspecified body region, initial encounter SNOMED: 390980902 (8) Decubitus ulcer of sacral region, unstageable ICD Codes: L89.150 - Pressure ulcer of sacral region, unstageable SNOMED: 377648013, 559661138 (9) Diabetic nephropathy ICD Codes: E11.21 - Type 2 diabetes mellitus with diabetic nephropathy SNOMED: 68460184, 352482612 (10) Pneumonia ICD Codes: J18.9 - Pneumonia, unspecified organism SNOMED: 053616525 Status: progressing Assessment/Plan renal function improving nonverbal multiple decus sepsis arf on top of cri needs fluids wound care needs suction prn abx per id Subjective ROS Limited/Unobtainable: Yes Constitutional: Reports: no symptoms Allergies: Coded Allergies: PENICILLINS (Unverified Allergy, Mild, 12/04/12) Objective Last 24 Hour Vital Signs Date Time Temp Pulse Resp B/P (MAP) Pulse Ox O2 Delivery O2 Flow Rate FiO2 04/18/18 10:50 97.9 82 18 179/65 (103) 100 04/18/18 09:35 200/68 04/18/18 09:33 75 200/68 04/18/18 08:00 97.7 78 18 152/69 (96) 100 04/18/18 04:00 98.1 85 18 159/79 (105) 100 04/18/18 02:22 166/69 04/18/18 00:00 97.6 76 16 157/69 (98) 99 04/17/18 21:00 Nasal Cannula 2.0 04/17/18 20:50 160/75 04/17/18 20:00 97.8 82 16 160/75 (103) 100 04/17/18 16:22 154/72 04/17/18 16:00 97.7 79 20 154/72 (99) 97 04/17/18 14:57 168/86 04/17/18 14:51 77 18 100 04/17/18 14:49 73 18 100 04/17/18 13:50 98.2 76 19 166/78 (107) 97 04/17/18 13:30 97.7 77 18 189/69 100 Nasal Cannula 2 04/17/18 13:24 77 18 189/69 100 Nasal Cannula 2 04/17/18 13:20 77 18 182/73 100 Simple Mask 8 04/17/18 13:15 77 18 180/70 100 Simple Mask 8 04/17/18 13:10 97.7 73 18 173/76 100 Simple Mask 8 04/17/18 12:00 97.7 79 19 165/77 (106) 97 Intake and Output 04/17/18 04/18/18 19:00 07:00 Intake Total 695 ml 880 ml Output Total 1700 ml 700 ml Balance -1005 ml 180 ml Intake Free Water 100 ml 100 ml IV Total 555 ml 720 ml Tube Feeding 40 ml 60 ml Output Urine Total 1700 ml 700 ml # Bowel Movements 2 Laboratory Tests 04/18/18 04:00: Urine Eosinophils Few seen 04/18/18 06:50: White Blood Count 10.1, Red Blood Count 3.37L, Hemoglobin 9.7L, Hematocrit 30.0L , Mean Corpuscular Volume 89, Mean Corpuscular Hemoglobin 28.8, Mean Corpuscular Hemoglobin Concent 32.4, Red Cell Distribution Width 13.7, Platelet Count 212, Mean Platelet Volume 7.7, Neutrophils (%) (Auto) 73.8, Lymphocytes (% ) (Auto) 12.0L, Monocytes (%) (Auto) 7.9, Eosinophils (%) (Auto) 5.1H, Basophils (%) (Auto) 1.3, Sodium Level 140, Potassium Level 5.1, Chloride Level 109H, Carbon Dioxide Level 23, Anion Gap 8, Blood Urea Nitrogen 44H, Creatinine 1.8H, Estimat Glomerular Filtration Rate , Glucose Level 155H, Calcium Level 9.1 Height (Feet): 5 Height (Inches): 3.00 Weight (Pounds): 169 Neck: supple Abdomen: soft Krzysztof Schneider MD Apr 18, 2018 11:35
--- NOTE | 2018-04-18 12:19 | Cardiac Electrophysiology PN ---
Assessment/Plan Assessment/Plan 1. Bradycardia with heart rate in the 50s and history of paroxysmal atrial fibrillation. Keep the patient off any AV miguel angel blocking agent. HR better 2. Paroxysmal atrial fibrillation, off any AV miguel angel justo 3. Hypertension on Norvasc 10 qd, Hydralazine 25 q6 hr, Clonidine patch and p.r.n. clonidine. 4. Dysphagia, status post PEG placement. 5. Large Right femoral AV fistula/ pseudoaneurysm. FU with Dr. Park and Dr Chisholm 6. Unstageable sacral decubitus ulcer on antibiotic. 7. Anemia, S/P colonoscopy DW RN Subjective Subjective No events. No CP or SOB. Objective Last 24 Hour Vital Signs Date Time Temp Pulse Resp B/P (MAP) Pulse Ox O2 Delivery O2 Flow Rate FiO2 04/18/18 10:50 97.9 82 18 179/65 (103) 100 04/18/18 09:35 200/68 04/18/18 09:33 75 200/68 04/18/18 08:00 97.7 78 18 152/69 (96) 100 04/18/18 04:00 98.1 85 18 159/79 (105) 100 04/18/18 02:22 166/69 04/18/18 00:00 97.6 76 16 157/69 (98) 99 04/17/18 21:00 Nasal Cannula 2.0 04/17/18 20:50 160/75 04/17/18 20:00 97.8 82 16 160/75 (103) 100 04/17/18 16:22 154/72 04/17/18 16:00 97.7 79 20 154/72 (99) 97 04/17/18 14:57 168/86 04/17/18 14:51 77 18 100 04/17/18 14:49 73 18 100 04/17/18 13:50 98.2 76 19 166/78 (107) 97 04/17/18 13:30 97.7 77 18 189/69 100 Nasal Cannula 2 04/17/18 13:24 77 18 189/69 100 Nasal Cannula 2 04/17/18 13:20 77 18 182/73 100 Simple Mask 8 04/17/18 13:15 77 18 180/70 100 Simple Mask 8 04/17/18 13:10 97.7 73 18 173/76 100 Simple Mask 8 04/17/18 12:00 97.7 79 19 165/77 (106) 97 Intake and Output 04/17/18 04/18/18 19:00 07:00 Intake Total 695 ml 880 ml Output Total 1700 ml 700 ml Balance -1005 ml 180 ml Intake Free Water 100 ml 100 ml IV Total 555 ml 720 ml Tube Feeding 40 ml 60 ml Output Urine Total 1700 ml 700 ml # Bowel Movements 2 Laboratory Tests Test 04/18/18 04:00 04/18/18 06:50 Urine Eosinophils Few seen (NONE SEEN) White Blood Count 10.1 K/UL (4.8-10.8) Red Blood Count 3.37 M/UL (4.20-5.40) L Hemoglobin 9.7 G/DL (12.0-16.0) L Hematocrit 30.0 % (37.0-47.0) L Mean Corpuscular Volume 89 FL (80-99) Mean Corpuscular Hemoglobin 28.8 PG (27.0-31.0) Mean Corpuscular Hemoglobin Concent 32.4 G/DL (32.0-36.0) Red Cell Distribution Width 13.7 % (11.6-14.8) Platelet Count 212 K/UL (150-450) Mean Platelet Volume 7.7 FL (6.5-10.1) Neutrophils (%) (Auto) 73.8 % (45.0-75.0) Lymphocytes (%) (Auto) 12.0 % (20.0-45.0) L Monocytes (%) (Auto) 7.9 % (1.0-10.0) Eosinophils (%) (Auto) 5.1 % (0.0-3.0) H Basophils (%) (Auto) 1.3 % (0.0-2.0) Sodium Level 140 MMOL/L (136-145) Potassium Level 5.1 MMOL/L (3.5-5.1) Chloride Level 109 MMOL/L (98-107) H Carbon Dioxide Level 23 MMOL/L (21-32) Anion Gap 8 mmol/L (5-15) Blood Urea Nitrogen 44 mg/dL (7-18) H Creatinine 1.8 MG/DL (0.55-1.30) H Estimat Glomerular Filtration Rate mL/min (>60) Glucose Level 155 MG/DL (74-106) H Calcium Level 9.1 MG/DL (8.5-10.1) Objective HEAD AND NECK: No jugular venous distention. LUNGS: Coarse rhonchi. CARDIOVASCULAR: Regular S1 and S2 with no gallop. ABDOMEN: Status post G-tube. EXTREMITIES: No pitting edema.Right femoral Mass/hematoma Everett Nair MD Apr 18, 2018 12:18
--- NOTE | 2018-04-18 13:31 | Pulmonology Progress Note ---
Assessment/Plan Problems: (1) Pleural effusion (2) Lung nodule < 6cm on CT (3) Pneumonia (4) Encephalopathy due to metabolic factor or toxin (5) Decubitus ulcer of sacral region, unstageable (6) Hematoma (7) Hypoglycemia (8) Mass of right thigh (9) Abnormal LFTs (10) MARK (acute kidney injury) (11) CKD (chronic kidney disease) (12) Shock (13) Hypertension (14) Sepsis (15) Seizure disorder (16) Anemia (17) PEG (percutaneous endoscopic gastrostomy) status (18) [facility] resident (19) Rectal abnormality Assessment/Plan F/U COLONOSOCPY FINDINGS Thoracentesis evaluation Optimize pulmonary hygiene/mobilize as tolerated PRN O2 PRN HHN's Continue Zosyn (D4) per ID F/U Cx's F/U vascular and surgery recs Monitor electrolytes and renal function, consider D/C IVF given b effusion and elevated filling pressures on TTE Wound care TF's DVT Px: Hep SQ DNAR/DNI, continue to discuss GOC, consider supportive care evaluation Subjective Allergies: Coded Allergies: PENICILLINS (Unverified Allergy, Mild, 12/04/12) Subjective AFVSS, O2 needs stable ? colo results No distress, no cough, no FC, chet TF Objective Last 24 Hour Vital Signs Date Time Temp Pulse Resp B/P (MAP) Pulse Ox O2 Delivery O2 Flow Rate FiO2 04/18/18 12:00 97.7 78 18 164/60 (94) 100 04/18/18 10:50 97.9 82 18 179/65 (103) 100 04/18/18 09:35 200/68 04/18/18 09:33 75 200/68 04/18/18 09:00 Nasal Cannula 2.0 04/18/18 08:00 97.7 78 18 152/69 (96) 100 04/18/18 04:00 98.1 85 18 159/79 (105) 100 04/18/18 02:22 166/69 04/18/18 00:00 97.6 76 16 157/69 (98) 99 04/17/18 21:00 Nasal Cannula 2.0 04/17/18 20:50 160/75 04/17/18 20:00 97.8 82 16 160/75 (103) 100 04/17/18 16:22 154/72 04/17/18 16:00 97.7 79 20 154/72 (99) 97 04/17/18 14:57 168/86 04/17/18 14:51 77 18 100 04/17/18 14:49 73 18 100 04/17/18 13:50 98.2 76 19 166/78 (107) 97 04/17/18 13:30 97.7 77 18 189/69 100 Nasal Cannula 2 Intake and Output 04/17/18 04/18/18 19:00 07:00 Intake Total 695 ml 940 ml Output Total 1700 ml 700 ml Balance -1005 ml 240 ml Intake Free Water 100 ml 100 ml IV Total 555 ml 720 ml Tube Feeding 40 ml 120 ml Output Urine Total 1700 ml 700 ml # Bowel Movements 2 General Appearance: no acute distress, cachetic HEENT: normocephalic, atraumatic, anicteric, mucous membranes moist Respiratory/Chest: chest wall non-tender, lungs clear, normal breath sounds, no respiratory distress Cardiovascular: normal peripheral pulses, normal rate, regular rhythm Abdomen: normal bowel sounds, soft, non tender, no organomegaly, non distended , no mass, other - GT Extremities: no cyanosis, no clubbing, no edema, other - thigh mass Laboratory Tests 04/18/18 04:00: Urine Eosinophils Few seen 04/18/18 06:50: White Blood Count 10.1, Red Blood Count 3.37L, Hemoglobin 9.7L, Hematocrit 30.0L , Mean Corpuscular Volume 89, Mean Corpuscular Hemoglobin 28.8, Mean Corpuscular Hemoglobin Concent 32.4, Red Cell Distribution Width 13.7, Platelet Count 212, Mean Platelet Volume 7.7, Neutrophils (%) (Auto) 73.8, Lymphocytes (% ) (Auto) 12.0L, Monocytes (%) (Auto) 7.9, Eosinophils (%) (Auto) 5.1H, Basophils (%) (Auto) 1.3, Sodium Level 140, Potassium Level 5.1, Chloride Level 109H, Carbon Dioxide Level 23, Anion Gap 8, Blood Urea Nitrogen 44H, Creatinine 1.8H, Estimat Glomerular Filtration Rate , Glucose Level 155H, Calcium Level 9.1 Current Medications Medications (Trade) Dose Ordered Sig/Gelacio Route PRN Reason Start Time Stop Time Status Last Admin Dose Admin Acetaminophen (Tylenol) 650 mg Q4H PRN RECTAL fever (temp>100.5F) 04/15/18 18:15 05/14/18 22:14 Amlodipine Besylate (Norvasc) 10 mg DAILY ORAL 04/17/18 09:00 05/17/18 08:59 04/18/18 09:33 Bisacodyl (Dulcolax) 10 mg DAILYPRN PRN RECTAL Constipation 04/15/18 16:15 05/14/18 16:14 Clonidine HCl (Catapres TTS-3) 1 patch QWEEK TDERMAL 04/17/18 16:00 05/17/18 15:59 04/17/18 16:22 Clonidine HCl (Catapres Tab) 0.1 mg Q4H PRN ORAL bp over 165 syst 04/16/18 08:00 05/16/18 07:59 04/17/18 04:49 Dextrose (Dextrose 50%) 25 ml Q30M PRN IV Hypoglycemia 04/15/18 16:30 05/15/18 16:16 Dextrose (Dextrose 50%) 50 ml Q30M PRN IV hypoglycemia 04/15/18 16:30 05/15/18 16:29 Diphenhydramine HCl (Benadryl) 25 mg Q6H PRN GT Itching/Pruritis 04/15/18 16:15 05/14/18 22:14 Docusate Sodium (Colace) 100 mg TID GT 04/16/18 13:00 05/15/18 08:59 04/18/18 09:35 Heparin Sodium (Porcine) (Heparin 5000 units/ml) 5,000 units EVERY 12 HOURS SUBQ 04/15/18 21:00 05/15/18 20:59 04/18/18 09:37 Hydralazine HCl (Apresoline) 25 mg Q6H GT 04/17/18 09:00 05/17/18 08:59 04/18/18 09:35 Insulin Aspart (NovoLOG) EVERY 6 HOURS SUBQ 04/15/18 18:00 05/15/18 07:59 04/18/18 11:53 Morphine Sulfate (Morphine Sulfate) 1 mg Q3H PRN IVP Breakthrough Pain 04/15/18 16:30 04/22/18 16:29 Morphine Sulfate (Morphine Sulfate) 2 mg Q3H PRN IVP Moderate Pain (Pain Scale 4-6) 04/15/18 16:30 04/22/18 16:29 Ondansetron HCl (Zofran) 4 mg Q6H PRN IVP Nausea & Vomiting 04/15/18 16:15 05/14/18 22:14 Pantoprazole (Protonix) 40 mg DAILY IV 04/16/18 09:00 05/15/18 08:59 04/18/18 11:08 Piperacillin Sod/ Tazobactam Sod 2.25 gm/Dextrose 55 ml @ 110 mls/hr Q8HR IVPB 04/15/18 22:00 04/22/18 21:59 04/18/18 05:09 Sodium Chloride 1,000 ml @ 50 mls/hr Q20H IV 04/16/18 10:00 05/16/18 09:59 04/18/18 12:48 Javon Gan MD Apr 18, 2018 13:31
--- NOTE | 2018-04-18 13:33 | General Surgery Progress Note ---
General Surgery-Progress Note Subjective Additional Comments discussed with vascular. safe/stable hematoma and fistula. plan for outpatient follow up for this Objective Last 24 Hour Vital Signs Date Time Temp Pulse Resp B/P (MAP) Pulse Ox O2 Delivery O2 Flow Rate FiO2 04/18/18 12:00 97.7 78 18 164/60 (94) 100 04/18/18 10:50 97.9 82 18 179/65 (103) 100 04/18/18 09:35 200/68 04/18/18 09:33 75 200/68 04/18/18 09:00 Nasal Cannula 2.0 04/18/18 08:00 97.7 78 18 152/69 (96) 100 04/18/18 04:00 98.1 85 18 159/79 (105) 100 04/18/18 02:22 166/69 04/18/18 00:00 97.6 76 16 157/69 (98) 99 04/17/18 21:00 Nasal Cannula 2.0 04/17/18 20:50 160/75 04/17/18 20:00 97.8 82 16 160/75 (103) 100 04/17/18 16:22 154/72 04/17/18 16:00 97.7 79 20 154/72 (99) 97 04/17/18 14:57 168/86 04/17/18 14:51 77 18 100 04/17/18 14:49 73 18 100 04/17/18 13:50 98.2 76 19 166/78 (107) 97 I&O Intake and Output 04/17/18 04/18/18 19:00 07:00 Intake Total 695 ml 940 ml Output Total 1700 ml 700 ml Balance -1005 ml 240 ml Intake Free Water 100 ml 100 ml IV Total 555 ml 720 ml Tube Feeding 40 ml 120 ml Output Urine Total 1700 ml 700 ml # Bowel Movements 2 Laboratory Tests Test 04/18/18 04:00 04/18/18 06:50 Urine Eosinophils Few seen (NONE SEEN) White Blood Count 10.1 K/UL (4.8-10.8) Red Blood Count 3.37 M/UL (4.20-5.40) L Hemoglobin 9.7 G/DL (12.0-16.0) L Hematocrit 30.0 % (37.0-47.0) L Mean Corpuscular Volume 89 FL (80-99) Mean Corpuscular Hemoglobin 28.8 PG (27.0-31.0) Mean Corpuscular Hemoglobin Concent 32.4 G/DL (32.0-36.0) Red Cell Distribution Width 13.7 % (11.6-14.8) Platelet Count 212 K/UL (150-450) Mean Platelet Volume 7.7 FL (6.5-10.1) Neutrophils (%) (Auto) 73.8 % (45.0-75.0) Lymphocytes (%) (Auto) 12.0 % (20.0-45.0) L Monocytes (%) (Auto) 7.9 % (1.0-10.0) Eosinophils (%) (Auto) 5.1 % (0.0-3.0) H Basophils (%) (Auto) 1.3 % (0.0-2.0) Sodium Level 140 MMOL/L (136-145) Potassium Level 5.1 MMOL/L (3.5-5.1) Chloride Level 109 MMOL/L (98-107) H Carbon Dioxide Level 23 MMOL/L (21-32) Anion Gap 8 mmol/L (5-15) Blood Urea Nitrogen 44 mg/dL (7-18) H Creatinine 1.8 MG/DL (0.55-1.30) H Estimat Glomerular Filtration Rate mL/min (>60) Glucose Level 155 MG/DL (74-106) H Calcium Level 9.1 MG/DL (8.5-10.1) Plan Problems: (1) Mass of right thigh Assessment & Plan: likely hematoma. see below (2) Hematoma Assessment & Plan: Right Thigh Hematoma. Likely from prior femoral line insertion given puncture site. Will obtain records to identify when and if line placed no signs of infection will obtain venous duplex of lower extremity and US of site to further evaluation warm compress will monitor clinically for now thank you for this consultation will follow with recs Imaging reveals a patent deep venous system bilaterally. There is no evidence of thrombus within the femoral, popliteal or tibial segments. The greater saphenous veins are also within normal limits. Doppler indicates normal spontaneous flow within these segments. 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 -vascular consult (3) Decubitus ulcer of sacral region, unstageable Assessment & Plan: Resolving Stage IV sacral decubitus ulcer 4cm x 3cm with area of fibrinous debris / sloth in center. surrounding granulation tissue. prior scar periwound healing without active infection. no odor. no signs of active infection bilateral heel ulcers / DTPI wounds present on admission and will be cared for during hospital stay. please refer to photos for details -wash wounds with NS daily -apply therahoney to sacral wound and cover with foam dressing daily and prn -heel protectors -okay to betadine heels and apply foam dressing -air mattress -turn q2 thank you Jean Marie Park Apr 18, 2018 13:33
--- NOTE | 2018-04-18 14:43 | Nephrology Progress Note ---
Assessment/Plan Problem List: (1) MARK (acute kidney injury) (2) CKD (chronic kidney disease) (3) Diabetic nephropathy (4) Hypertension Assessment acute on chronic renal failure: Dehydration HTN DM / Proteinuria / HypoAlbuminemia Encephalopathy due to metabolic factor or toxin Hypoglycemia Anemia Decubitus ulcer of sacral region, unstageable PEG (percutaneous endoscopic gastrostomy) status Plan DC IV fluid BP meds- adjusted Monitor BS- Anemia conn avoid Nephrotoxics Monitor renal parameters per orders Subjective ROS Limited/Unobtainable: No Constitutional: Reports: malaise, weakness Objective Objective Last 24 Hour Vital Signs Date Time Temp Pulse Resp B/P (MAP) Pulse Ox O2 Delivery O2 Flow Rate FiO2 04/18/18 14:31 164/61 04/18/18 12:00 97.7 78 18 164/60 (94) 100 04/18/18 10:50 97.9 82 18 179/65 (103) 100 04/18/18 09:35 200/68 04/18/18 09:33 75 200/68 04/18/18 09:00 Nasal Cannula 2.0 04/18/18 08:00 97.7 78 18 152/69 (96) 100 04/18/18 04:00 98.1 85 18 159/79 (105) 100 04/18/18 02:22 166/69 04/18/18 00:00 97.6 76 16 157/69 (98) 99 04/17/18 21:00 Nasal Cannula 2.0 04/17/18 20:50 160/75 04/17/18 20:00 97.8 82 16 160/75 (103) 100 04/17/18 16:22 154/72 04/17/18 16:00 97.7 79 20 154/72 (99) 97 04/17/18 14:57 168/86 04/17/18 14:51 77 18 100 04/17/18 14:49 73 18 100 Intake and Output 04/17/18 04/18/18 19:00 07:00 Intake Total 695 ml 940 ml Output Total 1700 ml 700 ml Balance -1005 ml 240 ml Intake Free Water 100 ml 100 ml IV Total 555 ml 720 ml Tube Feeding 40 ml 120 ml Output Urine Total 1700 ml 700 ml # Bowel Movements 2 Current Medications Medications (Trade) Dose Ordered Sig/Gelacio Route PRN Reason Start Time Stop Time Status Last Admin Dose Admin Acetaminophen (Tylenol) 650 mg Q4H PRN RECTAL fever (temp>100.5F) 04/15/18 18:15 05/14/18 22:14 Amlodipine Besylate (Norvasc) 10 mg DAILY ORAL 04/17/18 09:00 05/17/18 08:59 04/18/18 09:33 Bisacodyl (Dulcolax) 10 mg DAILYPRN PRN RECTAL Constipation 04/15/18 16:15 05/14/18 16:14 Clonidine HCl (Catapres TTS-3) 1 patch QWEEK TDERMAL 04/17/18 16:00 05/17/18 15:59 04/17/18 16:22 Clonidine HCl (Catapres Tab) 0.1 mg Q4H PRN ORAL bp over 165 syst 04/16/18 08:00 05/16/18 07:59 04/17/18 04:49 Dextrose (Dextrose 50%) 25 ml Q30M PRN IV Hypoglycemia 04/15/18 16:30 05/15/18 16:16 Dextrose (Dextrose 50%) 50 ml Q30M PRN IV hypoglycemia 04/15/18 16:30 05/15/18 16:29 Diphenhydramine HCl (Benadryl) 25 mg Q6H PRN GT Itching/Pruritis 04/15/18 16:15 05/14/18 22:14 Docusate Sodium (Colace) 100 mg TID GT 04/16/18 13:00 05/15/18 08:59 04/18/18 14:31 Heparin Sodium (Porcine) (Heparin 5000 units/ml) 5,000 units EVERY 12 HOURS SUBQ 04/15/18 21:00 05/15/18 20:59 04/18/18 09:37 Hydralazine HCl (Apresoline) 25 mg Q6H GT 04/17/18 09:00 05/17/18 08:59 04/18/18 14:31 Insulin Aspart (NovoLOG) EVERY 6 HOURS SUBQ 04/15/18 18:00 05/15/18 07:59 04/18/18 11:53 Morphine Sulfate (Morphine Sulfate) 1 mg Q3H PRN IVP Breakthrough Pain 04/15/18 16:30 04/22/18 16:29 Morphine Sulfate (Morphine Sulfate) 2 mg Q3H PRN IVP Moderate Pain (Pain Scale 4-6) 04/15/18 16:30 04/22/18 16:29 Ondansetron HCl (Zofran) 4 mg Q6H PRN IVP Nausea & Vomiting 04/15/18 16:15 05/14/18 22:14 Pantoprazole (Protonix) 40 mg DAILY IV 04/16/18 09:00 05/15/18 08:59 04/18/18 11:08 Piperacillin Sod/ Tazobactam Sod 2.25 gm/Dextrose 55 ml @ 110 mls/hr Q8HR IVPB 04/15/18 22:00 04/22/18 21:59 04/18/18 14:31 Sodium Chloride 1,000 ml @ 50 mls/hr Q20H IV 04/16/18 10:00 05/16/18 09:59 04/18/18 12:48 Laboratory Tests 04/18/18 04:00: Urine Eosinophils Few seen 04/18/18 06:50: White Blood Count 10.1, Red Blood Count 3.37L, Hemoglobin 9.7L, Hematocrit 30.0L , Mean Corpuscular Volume 89, Mean Corpuscular Hemoglobin 28.8, Mean Corpuscular Hemoglobin Concent 32.4, Red Cell Distribution Width 13.7, Platelet Count 212, Mean Platelet Volume 7.7, Neutrophils (%) (Auto) 73.8, Lymphocytes (% ) (Auto) 12.0L, Monocytes (%) (Auto) 7.9, Eosinophils (%) (Auto) 5.1H, Basophils (%) (Auto) 1.3, Sodium Level 140, Potassium Level 5.1, Chloride Level 109H, Carbon Dioxide Level 23, Anion Gap 8, Blood Urea Nitrogen 44H, Creatinine 1.8H, Estimat Glomerular Filtration Rate , Glucose Level 155H, Calcium Level 9.1 Height (Feet): 5 Height (Inches): 3.00 Weight (Pounds): 169 General Appearance: no apparent distress Cardiovascular: normal rate Respiratory/Chest: decreased breath sounds Abdomen: soft Phil Ortiz MD Apr 18, 2018 14:43
--- NOTE | 2018-04-18 15:33 | General Progress Note ---
Assessment/Plan Problem List: (1) Encephalopathy due to metabolic factor or toxin SNOMED: 804057845 (2) Major depression ICD Codes: F32.9 - Major depressive disorder, single episode, unspecified SNOMED: 584136897 Status: stable Subjective Date patient seen: Apr 18, 2018 Neurologic/Psychiatric: Reports: anxiety, depressed, emotional problems Allergies: Coded Allergies: PENICILLINS (Unverified Allergy, Mild, 12/04/12) Objective Last 24 Hour Vital Signs Date Time Temp Pulse Resp B/P (MAP) Pulse Ox O2 Delivery O2 Flow Rate FiO2 04/18/18 15:25 164/61 04/18/18 12:00 97.7 78 18 164/60 (94) 100 04/18/18 10:50 97.9 82 18 179/65 (103) 100 04/18/18 09:35 200/68 04/18/18 09:33 75 200/68 04/18/18 09:00 Nasal Cannula 2.0 04/18/18 08:00 97.7 78 18 152/69 (96) 100 04/18/18 04:00 98.1 85 18 159/79 (105) 100 04/18/18 02:22 166/69 04/18/18 00:00 97.6 76 16 157/69 (98) 99 04/17/18 21:00 Nasal Cannula 2.0 04/17/18 20:50 160/75 04/17/18 20:00 97.8 82 16 160/75 (103) 100 04/17/18 16:22 154/72 04/17/18 16:00 97.7 79 20 154/72 (99) 97 Intake and Output 04/17/18 04/18/18 19:00 07:00 Intake Total 695 ml 940 ml Output Total 1700 ml 700 ml Balance -1005 ml 240 ml Intake Free Water 100 ml 100 ml IV Total 555 ml 720 ml Tube Feeding 40 ml 120 ml Output Urine Total 1700 ml 700 ml # Bowel Movements 2 Laboratory Tests 04/18/18 04:00: Urine Eosinophils Few seen 04/18/18 06:50: White Blood Count 10.1, Red Blood Count 3.37L, Hemoglobin 9.7L, Hematocrit 30.0L , Mean Corpuscular Volume 89, Mean Corpuscular Hemoglobin 28.8, Mean Corpuscular Hemoglobin Concent 32.4, Red Cell Distribution Width 13.7, Platelet Count 212, Mean Platelet Volume 7.7, Neutrophils (%) (Auto) 73.8, Lymphocytes (% ) (Auto) 12.0L, Monocytes (%) (Auto) 7.9, Eosinophils (%) (Auto) 5.1H, Basophils (%) (Auto) 1.3, Sodium Level 140, Potassium Level 5.1, Chloride Level 109H, Carbon Dioxide Level 23, Anion Gap 8, Blood Urea Nitrogen 44H, Creatinine 1.8H, Estimat Glomerular Filtration Rate , Glucose Level 155H, Calcium Level 9.1 Height (Feet): 5 Height (Inches): 3.00 Weight (Pounds): 169 General Appearance: no apparent distress, alert Neurologic: oriented x 3, responsive, depressed affect MIPS Unhealthy Alcohol Use 431 (psycho/diag only) Patient was screened for unhealthy alcohol use today or within the past 2 years. Patient was NOT identified as an unhealthy alcohol user. Tobacco Use 226 (psycho/diag only) Patient was screened for tobacco use today or within the past 2 years. Patient was NOT identified as a tobacco user. BMI 128 (psycho/diag only) BMI was documented today or within the past year. BMI was outside normal parameters, and the patient received counseling. Depression 134,411,370 (psycho/diag only) Depression screening was performed in the past 6 months. PHQ-9 Score: 17 China Kidd MD Apr 18, 2018 15:33
[2018-04-19] VITALS (8 sets, daily range): BP systolic 127–170; BP diastolic 58–70
[2018-04-19] MEDS: HydrALAZINE 25mg tab GT SCH ×2 (02:22→10:14)
[2018-04-19] MEDS: Piperacillin/Tazobactam 2.25 GM in D5W 55 ML IVPB SCH ×3 (05:57→20:51)
[2018-04-19] MEDS: NovoLOG Insulin Flexpen SUBQ SCH ×3 (06:30→18:01)
--- NOTE | 2018-04-19 07:08 | General Progress Note ---
Assessment/Plan Problem List: (1) Hypoglycemia ICD Codes: E16.2 - Hypoglycemia, unspecified SNOMED: 498607003 (2) CKD (chronic kidney disease) ICD Codes: N18.9 - Chronic kidney disease, unspecified SNOMED: 850110366 (3) Encephalopathy due to metabolic factor or toxin SNOMED: 547794301 (4) Hypertension ICD Codes: I10 - Essential (primary) hypertension SNOMED: 29746869 Assessment/Plan continue TF continue IVF NISS low dose every 6 hours Subjective ROS Limited/Unobtainable: Yes Allergies: Coded Allergies: PENICILLINS (Unverified Allergy, Mild, 12/04/12) Subjective events noted Objective Last 24 Hour Vital Signs Date Time Temp Pulse Resp B/P (MAP) Pulse Ox O2 Delivery O2 Flow Rate FiO2 04/19/18 04:00 98.6 77 20 163/63 (96) 100 04/19/18 02:22 139/62 04/19/18 00:00 99.2 77 20 169/63 (98) 100 04/18/18 21:00 Nasal Cannula 2.0 04/18/18 20:23 172/62 04/18/18 20:00 99.3 73 20 172/62 (98) 100 04/18/18 18:35 98.0 80 20 149/69 (95) 100 04/18/18 16:00 98.1 83 22 162/66 (98) 100 04/18/18 15:25 164/61 04/18/18 12:00 97.7 78 18 164/60 (94) 100 04/18/18 10:50 97.9 82 18 179/65 (103) 100 04/18/18 09:35 200/68 04/18/18 09:33 75 200/68 04/18/18 09:00 Nasal Cannula 2.0 04/18/18 08:00 97.7 78 18 152/69 (96) 100 Intake and Output 04/18/18 04/19/18 18:59 06:59 Intake Total 1205 ml 1030 ml Output Total 650 ml 400 ml Balance 555 ml 630 ml Intake Free Water 130 ml 200 ml IV Total 355 ml 110 ml Tube Feeding 720 ml 720 ml Output Urine Total 650 ml 400 ml Laboratory Tests 04/19/18 05:45: Stool Occult Blood [Pending] Height (Feet): 5 Height (Inches): 3.00 Weight (Pounds): 169 General Appearance: no apparent distress Cardiovascular: normal rate Respiratory/Chest: decreased breath sounds Abdomen: normal bowel sounds Objective Current Medications Medications (Trade) Dose Ordered Sig/Gelacio Route PRN Reason Start Time Stop Time Status Last Admin Dose Admin Acetaminophen (Tylenol) 650 mg Q4H PRN RECTAL fever (temp>100.5F) 04/15/18 18:15 05/14/18 22:14 Amlodipine Besylate (Norvasc) 10 mg DAILY GT 04/19/18 09:00 05/17/18 08:59 Bisacodyl (Dulcolax) 10 mg DAILYPRN PRN RECTAL Constipation 04/15/18 16:15 05/14/18 16:14 Clonidine HCl (Catapres TTS-3) 1 patch QWEEK TDERMAL 04/17/18 16:00 05/17/18 15:59 04/17/18 16:22 Clonidine HCl (Catapres Tab) 0.1 mg Q4H PRN GT bp over 165 syst 04/18/18 15:00 05/16/18 07:59 Dextrose (Dextrose 50%) 25 ml Q30M PRN IV Hypoglycemia 04/15/18 16:30 05/15/18 16:16 Dextrose (Dextrose 50%) 50 ml Q30M PRN IV hypoglycemia 04/15/18 16:30 05/15/18 16:29 Diphenhydramine HCl (Benadryl) 25 mg Q6H PRN GT Itching/Pruritis 04/15/18 16:15 05/14/18 22:14 Docusate Sodium (Colace) 100 mg TID GT 04/16/18 13:00 05/15/18 08:59 04/18/18 17:39 Heparin Sodium (Porcine) (Heparin 5000 units/ml) 5,000 units EVERY 12 HOURS SUBQ 04/15/18 21:00 05/15/18 20:59 04/18/18 20:30 Hydralazine HCl (Apresoline) 50 mg Q6H GT 04/18/18 15:00 05/17/18 08:59 04/19/18 02:22 Insulin Aspart (NovoLOG) EVERY 6 HOURS SUBQ 04/15/18 18:00 05/15/18 07:59 04/19/18 06:30 Lansoprazole (Prevacid) 30 mg BID GT 04/18/18 18:00 05/18/18 17:59 04/18/18 17:39 Morphine Sulfate (Morphine Sulfate) 1 mg Q3H PRN IVP Breakthrough Pain 04/15/18 16:30 04/22/18 16:29 Morphine Sulfate (Morphine Sulfate) 2 mg Q3H PRN IVP Moderate Pain (Pain Scale 4-6) 04/15/18 16:30 04/22/18 16:29 Ondansetron HCl (Zofran) 4 mg Q6H PRN IVP Nausea & Vomiting 04/15/18 16:15 05/14/18 22:14 Piperacillin Sod/ Tazobactam Sod 2.25 gm/Dextrose 55 ml @ 110 mls/hr Q8HR IVPB 04/15/18 22:00 04/22/18 21:59 04/19/18 05:57 Item Value Date Time Bedside Blood Glucose 206 mg/dl H 04/19/18 0630 Bedside Blood Glucose 121 mg/dl H 04/19/18 0000 Bedside Blood Glucose 196 mg/dl H 04/18/18 1800 Bedside Blood Glucose 172 mg/dl H 04/18/18 1200 Bedside Blood Glucose 166 mg/dl H 04/18/18 0600 Bedside Blood Glucose 131 mg/dl H 04/18/18 0000 Awais Badillo MD Apr 19, 2018 07:08
--- NOTE | 2018-04-19 07:19 | Endoscopy Procedure Note ---
Endoscopy Procedure Note General Indication for Procedure: rectal mass? Procedures Performed: colonoscopy Operative Findings/Diagnosis: diverticulosios Specimen: none Pt Tolerated Procedure Well: Yes Estimated Blood Loss: none Anesthesia Anesthesiologist: see chart Anesthesia: MAC Inserted Devices Implant(s) used?: No Quality Quality of Bowel Preparation: Good Did scope reach the cecum?: Yes Was there any complications?: No GI Core Measures 50 yrs or older w/o bx or poly: Not Applicable 10yrs. F/U not recommended: Not Applicable Ruben Post MD Apr 19, 2018 07:19
[2018-04-19] MEDS: Docusate 100mg/10ml Liq GT SCH ×3 (10:14→17:36)
[2018-04-19] MEDS: Heparin 5000 units/ml inj SUBQ SCH ×2 (10:16→20:52)
--- NOTE | 2018-04-19 10:20 | GI Progress Note ---
Assessment/Plan Problems: (1) Anemia ICD Codes: D64.9 - Anemia, unspecified SNOMED: 390276186 (2) Diabetic nephropathy ICD Codes: E11.21 - Type 2 diabetes mellitus with diabetic nephropathy SNOMED: 62468644, 176770596 (3) Hypoglycemia ICD Codes: E16.2 - Hypoglycemia, unspecified SNOMED: 050802621 (4) Mass of right thigh ICD Codes: R22.41 - Localized swelling, mass and lump, right lower limb SNOMED: 411205503 (5) PEG (percutaneous endoscopic gastrostomy) status ICD Codes: Z93.1 - Gastrostomy status SNOMED: 320948315, 007279685 Status: stable Status Narrative Discussed with Dr. Post. Assessment/Plan s/p colonoscopy>>> no rectal mass seen OB stool pending GTFs per RD to goal fu labs prn transfusions ppi dc planning per primary team The patient was seen and examined at bedside and all new and available data was reviewed in the patients chart. I agree with the above findings, impression and plan. (Patient seen earlier today. Signature stamp does not reflect patient encounter time.). - Ruben Post MD Subjective Subjective limited Objective Last 24 Hour Vital Signs Date Time Temp Pulse Resp B/P (MAP) Pulse Ox O2 Delivery O2 Flow Rate FiO2 04/19/18 10:08 74 170/65 (100) 04/19/18 08:00 99.4 76 20 150/70 (96) 100 04/19/18 04:00 98.6 77 20 163/63 (96) 100 04/19/18 02:22 139/62 04/19/18 00:00 99.2 77 20 169/63 (98) 100 04/18/18 21:00 Nasal Cannula 2.0 04/18/18 20:23 172/62 04/18/18 20:00 99.3 73 20 172/62 (98) 100 04/18/18 18:35 98.0 80 20 149/69 (95) 100 04/18/18 16:00 98.1 83 22 162/66 (98) 100 04/18/18 15:25 164/61 04/18/18 12:00 97.7 78 18 164/60 (94) 100 04/18/18 10:50 97.9 82 18 179/65 (103) 100 Intake and Output 04/18/18 04/19/18 18:59 06:59 Intake Total 1205 ml 1030 ml Output Total 650 ml 400 ml Balance 555 ml 630 ml Intake Free Water 130 ml 200 ml IV Total 355 ml 110 ml Tube Feeding 720 ml 720 ml Output Urine Total 650 ml 400 ml Laboratory Tests Test 04/19/18 05:45 Stool Occult Blood Pending Height (Feet): 5 Height (Inches): 3.00 Weight (Pounds): 169 General Appearance: WD/WN, no apparent distress, alert Cardiovascular: normal rate Respiratory/Chest: normal breath sounds, no respiratory distress Abdominal Exam: normal bowel sounds, non tender, soft, GT site - c/d/i Extremities: normal range of motion, non-tender Loraine Wick NP Apr 19, 2018 10:19
--- NOTE | 2018-04-19 10:29 | Pulmonology Progress Note ---
Assessment/Plan Problems: (1) Pleural effusion (2) Lung nodule < 6cm on CT (3) Pneumonia (4) Encephalopathy due to metabolic factor or toxin (5) Decubitus ulcer of sacral region, unstageable (6) Hematoma (7) Hypoglycemia (8) Mass of right thigh (9) Abnormal LFTs (10) MARK (acute kidney injury) (11) CKD (chronic kidney disease) (12) Shock (13) Hypertension (14) Sepsis (15) Seizure disorder (16) Anemia (17) PEG (percutaneous endoscopic gastrostomy) status (18) senior living resident (19) Rectal abnormality Assessment/Plan Thoracentesis evaluation Optimize pulmonary hygiene/mobilize as tolerated PRN O2 PRN HHN's Continue Zosyn (D5) per ID F/U Cx's F/U vascular and surgery recs Monitor electrolytes and renal function Wound care TF's DVT Px: Hep SQ DNAR/DNI, continue to discuss GOC, consider supportive care evaluation Subjective Allergies: Coded Allergies: PENICILLINS (Unverified Allergy, Mild, 12/04/12) Subjective AFVSS, O2 needs stable no mass seen on colo, + diverticulosos No distress, no cough, no FC, chet TF Objective Last 24 Hour Vital Signs Date Time Temp Pulse Resp B/P (MAP) Pulse Ox O2 Delivery O2 Flow Rate FiO2 04/19/18 10:14 74 170/65 04/19/18 10:14 170/65 04/19/18 10:08 74 170/65 (100) 04/19/18 08:00 99.4 76 20 150/70 (96) 100 04/19/18 04:00 98.6 77 20 163/63 (96) 100 04/19/18 02:22 139/62 04/19/18 00:00 99.2 77 20 169/63 (98) 100 04/18/18 21:00 Nasal Cannula 2.0 04/18/18 20:23 172/62 04/18/18 20:00 99.3 73 20 172/62 (98) 100 04/18/18 18:35 98.0 80 20 149/69 (95) 100 04/18/18 16:00 98.1 83 22 162/66 (98) 100 04/18/18 15:25 164/61 04/18/18 12:00 97.7 78 18 164/60 (94) 100 04/18/18 10:50 97.9 82 18 179/65 (103) 100 Intake and Output 04/18/18 04/19/18 18:59 06:59 Intake Total 1205 ml 1030 ml Output Total 650 ml 400 ml Balance 555 ml 630 ml Intake Free Water 130 ml 200 ml IV Total 355 ml 110 ml Tube Feeding 720 ml 720 ml Output Urine Total 650 ml 400 ml General Appearance: no acute distress, cachetic HEENT: normocephalic, atraumatic, anicteric Respiratory/Chest: chest wall non-tender, lungs clear, normal breath sounds, no respiratory distress, no accessory muscle use Cardiovascular: normal peripheral pulses, normal rate, regular rhythm Abdomen: normal bowel sounds, soft, non tender, no organomegaly, non distended , no mass, other - GT Extremities: no cyanosis, no clubbing, no edema Laboratory Tests 04/19/18 05:45: Stool Occult Blood [Pending] Current Medications Medications (Trade) Dose Ordered Sig/Gelacio Route PRN Reason Start Time Stop Time Status Last Admin Dose Admin Acetaminophen (Tylenol) 650 mg Q4H PRN RECTAL fever (temp>100.5F) 04/15/18 18:15 05/14/18 22:14 Amlodipine Besylate (Norvasc) 10 mg DAILY GT 04/19/18 09:00 05/17/18 08:59 04/19/18 10:14 Bisacodyl (Dulcolax) 10 mg DAILYPRN PRN RECTAL Constipation 04/15/18 16:15 05/14/18 16:14 Clonidine HCl (Catapres TTS-3) 1 patch QWEEK TDERMAL 04/17/18 16:00 05/17/18 15:59 04/17/18 16:22 Clonidine HCl (Catapres Tab) 0.1 mg Q4H PRN GT bp over 165 syst 04/18/18 15:00 05/16/18 07:59 Dextrose (Dextrose 50%) 25 ml Q30M PRN IV Hypoglycemia 04/15/18 16:30 05/15/18 16:16 Dextrose (Dextrose 50%) 50 ml Q30M PRN IV hypoglycemia 04/15/18 16:30 05/15/18 16:29 Diphenhydramine HCl (Benadryl) 25 mg Q6H PRN GT Itching/Pruritis 04/15/18 16:15 05/14/18 22:14 Docusate Sodium (Colace) 100 mg TID GT 04/16/18 13:00 05/15/18 08:59 04/19/18 10:14 Heparin Sodium (Porcine) (Heparin 5000 units/ml) 5,000 units EVERY 12 HOURS SUBQ 04/15/18 21:00 05/15/18 20:59 04/19/18 10:16 Hydralazine HCl (Apresoline) 50 mg Q6H GT 04/19/18 10:30 05/17/18 10:29 UNV Insulin Aspart (NovoLOG) EVERY 6 HOURS SUBQ 04/15/18 18:00 05/15/18 07:59 04/19/18 06:30 Lansoprazole (Prevacid) 30 mg BID GT 04/18/18 18:00 05/18/18 17:59 04/19/18 10:15 Morphine Sulfate (Morphine Sulfate) 1 mg Q3H PRN IVP Breakthrough Pain 04/15/18 16:30 04/22/18 16:29 Morphine Sulfate (Morphine Sulfate) 2 mg Q3H PRN IVP Moderate Pain (Pain Scale 4-6) 04/15/18 16:30 04/22/18 16:29 Ondansetron HCl (Zofran) 4 mg Q6H PRN IVP Nausea & Vomiting 04/15/18 16:15 05/14/18 22:14 Piperacillin Sod/ Tazobactam Sod 2.25 gm/Dextrose 55 ml @ 110 mls/hr Q8HR IVPB 04/15/18 22:00 04/22/18 21:59 04/19/18 05:57 Javon Gan MD Apr 19, 2018 10:29
--- NOTE | 2018-04-19 10:56 | Cardiac Electrophysiology PN ---
Assessment/Plan Assessment/Plan 1. Bradycardia with heart rate in the 50s and history of paroxysmal atrial fibrillation. Off any AV miguel angel blocking agent. HR better 2. Paroxysmal atrial fibrillation, off any AV miguel angel justo 3. Hypertension on Norvasc 10 qd, Hydralazine 25 q6 hr, Clonidine patch and p.r.n. clonidine. 4. Dysphagia, status post PEG placement. 5. Large Right femoral AV fistula/ pseudoaneurysm. FU with Dr. Park and Dr Chisholm 6. Unstageable sacral decubitus ulcer on antibiotic. 7. Anemia, S/P colonoscopy by Dr Sejal LOVE RN Subjective Subjective No events. No CP or SOB.Had colonoscopy that showed diverticulosis Objective Last 24 Hour Vital Signs Date Time Temp Pulse Resp B/P (MAP) Pulse Ox O2 Delivery O2 Flow Rate FiO2 04/19/18 10:14 74 170/65 04/19/18 10:14 170/65 04/19/18 10:08 74 170/65 (100) 04/19/18 08:00 99.4 76 20 150/70 (96) 100 04/19/18 04:00 98.6 77 20 163/63 (96) 100 04/19/18 02:22 139/62 04/19/18 00:00 99.2 77 20 169/63 (98) 100 04/18/18 21:00 Nasal Cannula 2.0 04/18/18 20:23 172/62 04/18/18 20:00 99.3 73 20 172/62 (98) 100 04/18/18 18:35 98.0 80 20 149/69 (95) 100 04/18/18 16:00 98.1 83 22 162/66 (98) 100 04/18/18 15:25 164/61 04/18/18 12:00 97.7 78 18 164/60 (94) 100 Intake and Output 04/18/18 04/19/18 18:59 06:59 Intake Total 1205 ml 1030 ml Output Total 650 ml 400 ml Balance 555 ml 630 ml Intake Free Water 130 ml 200 ml IV Total 355 ml 110 ml Tube Feeding 720 ml 720 ml Output Urine Total 650 ml 400 ml Laboratory Tests Test 04/19/18 05:45 Stool Occult Blood Pending Objective HEAD AND NECK: No jugular venous distention. LUNGS: Coarse rhonchi. CARDIOVASCULAR: Regular S1 and S2 with no gallop. ABDOMEN: Status post G-tube. EXTREMITIES: No pitting edema.Right femoral Mass/hematoma Everett Nair MD Apr 19, 2018 10:56
[2018-04-19] MEDS ORDERED: Metoprolol Tartrate 12.5mg TAB GT SCH (11:00)
--- NOTE | 2018-04-19 11:02 | Nephrology Progress Note ---
Assessment/Plan Problem List: (1) Hypertension (2) MARK (acute kidney injury) (3) CKD (chronic kidney disease) (4) Diabetic nephropathy Assessment acute on chronic renal failure: Dehydration HTN DM / Proteinuria / HypoAlbuminemia Encephalopathy due to metabolic factor or toxin Hypoglycemia Anemia Decubitus ulcer of sacral region, unstageable PEG (percutaneous endoscopic gastrostomy) status Plan DC IV fluid BP meds- adjusted Monitor BS- Anemia conn avoid Nephrotoxics Monitor renal parameters per orders Subjective ROS Limited/Unobtainable: No Objective Objective Last 24 Hour Vital Signs Date Time Temp Pulse Resp B/P (MAP) Pulse Ox O2 Delivery O2 Flow Rate FiO2 04/19/18 10:14 74 170/65 04/19/18 10:14 170/65 04/19/18 10:08 74 170/65 (100) 04/19/18 08:00 99.4 76 20 150/70 (96) 100 04/19/18 04:00 98.6 77 20 163/63 (96) 100 04/19/18 02:22 139/62 04/19/18 00:00 99.2 77 20 169/63 (98) 100 04/18/18 21:00 Nasal Cannula 2.0 04/18/18 20:23 172/62 04/18/18 20:00 99.3 73 20 172/62 (98) 100 04/18/18 18:35 98.0 80 20 149/69 (95) 100 04/18/18 16:00 98.1 83 22 162/66 (98) 100 04/18/18 15:25 164/61 04/18/18 12:00 97.7 78 18 164/60 (94) 100 Intake and Output 04/18/18 04/19/18 18:59 06:59 Intake Total 1205 ml 1030 ml Output Total 650 ml 400 ml Balance 555 ml 630 ml Intake Free Water 130 ml 200 ml IV Total 355 ml 110 ml Tube Feeding 720 ml 720 ml Output Urine Total 650 ml 400 ml Laboratory Tests 04/19/18 05:45: Stool Occult Blood [Pending] Height (Feet): 5 Height (Inches): 3.00 Weight (Pounds): 169 General Appearance: no apparent distress Objective no change Phil Ortiz MD Apr 19, 2018 11:01
--- NOTE | 2018-04-19 12:21 | Infectious Diseases Prog Note ---
Assessment/Plan Assessment/Plan A: 1. Sepsis/ Systemic inflammatory response syndrome with hypoglycemia, 2. pneumonia. 3. Diabetes mellitus. 4. Chronic kidney disease. 5. Anemia. 6. Seizure disorder. 7. Right thigh hematoma with central pseudoaneurysm 8. Diverticulosis & internal hemorrhoids P: Continue Zosyn will f/u cultures Subjective ROS Limited/Unobtainable: Yes Allergies: Coded Allergies: PENICILLINS (Unverified Allergy, Mild, 12/04/12) Objective Vital Signs Last 24 Hour Vital Signs Date Time Temp Pulse Resp B/P (MAP) Pulse Ox O2 Delivery O2 Flow Rate FiO2 04/19/18 10:14 74 170/65 04/19/18 10:14 170/65 04/19/18 10:08 74 170/65 (100) 04/19/18 09:00 Nasal Cannula 2.0 04/19/18 08:00 99.4 76 20 150/70 (96) 100 04/19/18 04:00 98.6 77 20 163/63 (96) 100 04/19/18 02:22 139/62 04/19/18 00:00 99.2 77 20 169/63 (98) 100 04/18/18 21:00 Nasal Cannula 2.0 04/18/18 20:23 172/62 04/18/18 20:00 99.3 73 20 172/62 (98) 100 04/18/18 18:35 98.0 80 20 149/69 (95) 100 04/18/18 16:00 98.1 83 22 162/66 (98) 100 04/18/18 15:25 164/61 Height (Feet): 5 Height (Inches): 3.00 Weight (Pounds): 169 General Appearance: no acute distress HEENT: mucous membranes moist Respiratory/Chest: lungs clear Cardiovascular: normal rate Abdomen: soft, non tender Extremities: no edema Neurologic/Psychiatric: aphasia, other - opens eyes Laboratory Tests Test 04/19/18 05:45 Stool Occult Blood Negative (NEGATIVE) Current Medications Medications (Trade) Dose Ordered Sig/Gelacio Route PRN Reason Start Time Stop Time Status Last Admin Dose Admin Acetaminophen (Tylenol) 650 mg Q4H PRN RECTAL fever (temp>100.5F) 04/15/18 18:15 05/14/18 22:14 Amlodipine Besylate (Norvasc) 10 mg DAILY GT 04/19/18 09:00 05/17/18 08:59 04/19/18 10:14 Bisacodyl (Dulcolax) 10 mg DAILYPRN PRN RECTAL Constipation 04/15/18 16:15 05/14/18 16:14 Clonidine HCl (Catapres TTS-3) 1 patch QWEEK TDERMAL 04/17/18 16:00 05/17/18 15:59 04/17/18 16:22 Clonidine HCl (Catapres Tab) 0.1 mg Q4H PRN GT bp over 165 syst 04/18/18 15:00 05/16/18 07:59 Dextrose (Dextrose 50%) 25 ml Q30M PRN IV Hypoglycemia 04/15/18 16:30 05/15/18 16:16 Dextrose (Dextrose 50%) 50 ml Q30M PRN IV hypoglycemia 04/15/18 16:30 05/15/18 16:29 Diphenhydramine HCl (Benadryl) 25 mg Q6H PRN GT Itching/Pruritis 04/15/18 16:15 05/14/18 22:14 Docusate Sodium (Colace) 100 mg TID GT 04/16/18 13:00 05/15/18 08:59 04/19/18 10:14 Heparin Sodium (Porcine) (Heparin 5000 units/ml) 5,000 units EVERY 12 HOURS SUBQ 04/15/18 21:00 05/15/18 20:59 04/19/18 10:16 Hydralazine HCl (Apresoline) 50 mg Q6H GT 04/19/18 16:30 05/17/18 16:29 Insulin Aspart (NovoLOG) EVERY 6 HOURS SUBQ 04/15/18 18:00 05/15/18 07:59 04/19/18 06:30 Lansoprazole (Prevacid) 30 mg BID GT 04/18/18 18:00 05/18/18 17:59 04/19/18 10:15 Metoprolol Tartrate (Lopressor) 12.5 mg Q12HR GT 04/19/18 21:00 05/19/18 20:59 Morphine Sulfate (Morphine Sulfate) 1 mg Q3H PRN IVP Breakthrough Pain 04/15/18 16:30 04/22/18 16:29 Morphine Sulfate (Morphine Sulfate) 2 mg Q3H PRN IVP Moderate Pain (Pain Scale 4-6) 04/15/18 16:30 04/22/18 16:29 Ondansetron HCl (Zofran) 4 mg Q6H PRN IVP Nausea & Vomiting 04/15/18 16:15 05/14/18 22:14 Piperacillin Sod/ Tazobactam Sod 2.25 gm/Dextrose 55 ml @ 110 mls/hr Q8HR IVPB 04/15/18 22:00 04/22/18 21:59 04/19/18 05:57 Wilder French MD Apr 19, 2018 12:20
--- NOTE | 2018-04-19 13:30 | General Progress Note ---
Assessment/Plan Status: stable Assessment/Plan # Anemia of chronic disease -- baseline appears to be 10-11 reviewed labs from 2012 --> at this time decreased, anemia panel has been ordered on prior admission and c/w acd --> transfuse as needed, hgb goal >7 --> no evidence of hemolysis noted # Leukocytosis likely related to septic shock --> WBC has improved --> on abx and ivf --> appreciate ID recs and workup --> surg recs reviewed # Hematoma of the right groin -- 5.1 x 6.6 x 20 cm hyperattenuating right proximal thigh mass. 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 --> On heparin 5k units. # Abnormal LFTs --> likely shock liver from overt sepsis. --> trend labs # Decubitus ulcer of sacral region, unstageable, 5cm x 4cm unstagable sacral decubitus ulcer, no drainage, mild periedge edema/erythema, soft, no odor present upon admission. will be cared for during hospital sta --> surg eval # Severe sepsis --> on abx as per ID # Respiratory failure withc coarse rhonchi --> thora evaluation --> as per pulm Greatly appreciate consultation! Subjective Date patient seen: Apr 19, 2018 ROS Limited/Unobtainable: Yes Hematologic/Lymphatic: Reports: anemia Allergies: Coded Allergies: PENICILLINS (Unverified Allergy, Mild, 12/04/12) Subjective Pt nonverbal. No acute events. H/H stable. Objective Last 24 Hour Vital Signs Date Time Temp Pulse Resp B/P (MAP) Pulse Ox O2 Delivery O2 Flow Rate FiO2 04/19/18 12:35 70 163/58 04/19/18 12:34 70 163/58 (93) 04/19/18 12:00 99.2 61 20 162/61 (94) 99 04/19/18 10:14 74 170/65 04/19/18 10:14 170/65 04/19/18 10:08 74 170/65 (100) 04/19/18 09:00 Nasal Cannula 2.0 04/19/18 08:00 99.4 76 20 150/70 (96) 100 04/19/18 04:00 98.6 77 20 163/63 (96) 100 04/19/18 02:22 139/62 04/19/18 00:00 99.2 77 20 169/63 (98) 100 04/18/18 21:00 Nasal Cannula 2.0 04/18/18 20:23 172/62 04/18/18 20:00 99.3 73 20 172/62 (98) 100 04/18/18 18:35 98.0 80 20 149/69 (95) 100 04/18/18 16:00 98.1 83 22 162/66 (98) 100 04/18/18 15:25 164/61 Intake and Output 04/18/18 04/19/18 19:00 07:00 Intake Total 1205 ml 970 ml Output Total 650 ml 400 ml Balance 555 ml 570 ml Intake Free Water 130 ml 200 ml IV Total 355 ml 110 ml Tube Feeding 720 ml 660 ml Output Urine Total 650 ml 400 ml Laboratory Tests 04/19/18 05:45: Stool Occult Blood Negative Height (Feet): 5 Height (Inches): 3.00 Weight (Pounds): 169 Objective PHYSICAL EXAMINATION: VITAL SIGNS: Have been reviewed. HEAD AND NECK: Shows no jugular venous distention. LUNGS: Coarse rhonchi. CARDIOVASCULAR: Regular S1 and S2 with no gallop. ABDOMEN: Status post G-tube. EXTREMITIES: No pitting edema. Aleksandr Kern MD Apr 19, 2018 13:30
--- NOTE | 2018-04-19 13:57 | General Surgery Progress Note ---
General Surgery-Progress Note Objective Last 24 Hour Vital Signs Date Time Temp Pulse Resp B/P (MAP) Pulse Ox O2 Delivery O2 Flow Rate FiO2 04/19/18 12:35 70 163/58 04/19/18 12:34 70 163/58 (93) 04/19/18 12:00 99.2 61 20 162/61 (94) 99 04/19/18 10:14 74 170/65 04/19/18 10:14 170/65 04/19/18 10:08 74 170/65 (100) 04/19/18 09:00 Nasal Cannula 2.0 04/19/18 08:00 99.4 76 20 150/70 (96) 100 04/19/18 04:00 98.6 77 20 163/63 (96) 100 04/19/18 02:22 139/62 04/19/18 00:00 99.2 77 20 169/63 (98) 100 04/18/18 21:00 Nasal Cannula 2.0 04/18/18 20:23 172/62 04/18/18 20:00 99.3 73 20 172/62 (98) 100 04/18/18 18:35 98.0 80 20 149/69 (95) 100 04/18/18 16:00 98.1 83 22 162/66 (98) 100 04/18/18 15:25 164/61 I&O Intake and Output 04/18/18 04/19/18 19:00 07:00 Intake Total 1205 ml 970 ml Output Total 650 ml 400 ml Balance 555 ml 570 ml Intake Free Water 130 ml 200 ml IV Total 355 ml 110 ml Tube Feeding 720 ml 660 ml Output Urine Total 650 ml 400 ml Laboratory Tests Test 04/19/18 05:45 Stool Occult Blood Negative (NEGATIVE) Plan Problems: (1) Mass of right thigh Assessment & Plan: likely hematoma. see below (2) Hematoma Assessment & Plan: Right Thigh Hematoma. Likely from prior femoral line insertion given puncture site. Will obtain records to identify when and if line placed no signs of infection will obtain venous duplex of lower extremity and US of site to further evaluation warm compress will monitor clinically for now thank you for this consultation will follow with recs Imaging reveals a patent deep venous system bilaterally. There is no evidence of thrombus within the femoral, popliteal or tibial segments. The greater saphenous veins are also within normal limits. Doppler indicates normal spontaneous flow within these segments. 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 -vascular consult (3) Decubitus ulcer of sacral region, unstageable Assessment & Plan: Resolving Stage IV sacral decubitus ulcer 4cm x 3cm with area of fibrinous debris / sloth in center. surrounding granulation tissue. prior scar periwound healing without active infection. no odor. no signs of active infection bilateral heel ulcers / DTPI wounds present on admission and will be cared for during hospital stay. please refer to photos for details Pt presents with resolving full thickness pressure injury to sacrum (L)3cm x (W) 2.9cm wound bed with Biofilm and trace loose slough otherwise viable.(+) maceration along edges with dark skin tone periwound.Resolving pressure injury to R heel (L)3.5cm x (W)4cm edges and periwound dry and dark but wound is pink and fluctuant centrally..Resolving pressure injury L heel centrally wound bed pink and dry with dry, dark borders without fluctuance. -wash wounds with NS daily -cleanse sacral wound with Saline.Apply Therahoney.Cavilon wipes along borders.Cover with Optifoam drsg Daily and prn. -cavilon wipes to both heels.Cover with Optifoam drsg. Change every 7 days and prn. -reposition at least every 2hours or as tolerated. -off-load heels with pillow. thank you Jean Marie Park Apr 19, 2018 13:57
[2018-04-19] MEDS: HydrALAZINE 50mg tab GT SCH ×2 (16:27→21:40)
[2018-04-19] MEDS: Metoprolol Tartrate 12.5mg TAB GT SCH (20:50)
--- NOTE | 2018-04-19 23:19 | General Progress Note ---
Assessment/Plan Problem List: (1) Encephalopathy due to metabolic factor or toxin SNOMED: 764182887 (2) Major depression ICD Codes: F32.9 - Major depressive disorder, single episode, unspecified SNOMED: 670455120 Subjective Neurologic/Psychiatric: Reports: anxiety, depressed, emotional problems Allergies: Coded Allergies: PENICILLINS (Unverified Allergy, Mild, 12/04/12) Objective Last 24 Hour Vital Signs Date Time Temp Pulse Resp B/P (MAP) Pulse Ox O2 Delivery O2 Flow Rate FiO2 04/19/18 21:40 157/60 04/19/18 21:00 Nasal Cannula 2.0 04/19/18 20:50 78 165/58 04/19/18 20:00 98.6 79 20 127/70 (89) 100 04/19/18 16:27 154/68 04/19/18 16:00 98.1 69 20 154/68 (96) 100 04/19/18 12:35 70 163/58 04/19/18 12:34 70 163/58 (93) 04/19/18 12:00 99.2 61 20 162/61 (94) 99 04/19/18 10:14 74 170/65 04/19/18 10:14 170/65 04/19/18 10:08 74 170/65 (100) 04/19/18 09:00 Nasal Cannula 2.0 04/19/18 08:00 99.4 76 20 150/70 (96) 100 04/19/18 04:00 98.6 77 20 163/63 (96) 100 04/19/18 02:22 139/62 04/19/18 00:00 99.2 77 20 169/63 (98) 100 Intake and Output 04/18/18 04/19/18 19:00 07:00 Intake Total 1205 ml 970 ml Output Total 650 ml 400 ml Balance 555 ml 570 ml Intake Free Water 130 ml 200 ml IV Total 355 ml 110 ml Tube Feeding 720 ml 660 ml Output Urine Total 650 ml 400 ml Laboratory Tests 04/19/18 05:45: Stool Occult Blood Negative Height (Feet): 5 Height (Inches): 3.00 Weight (Pounds): 169 General Appearance: no apparent distress, alert Neurologic: oriented x 3, responsive, depressed affect China Kidd MD Apr 19, 2018 23:19
[2018-04-20] VITALS (7 sets, daily range): BP systolic 143–185; BP diastolic 56–75
[2018-04-20] MEDS: HydrALAZINE 50mg tab GT SCH ×4 (03:47→23:07)
[2018-04-20] MEDS: Piperacillin/Tazobactam 2.25 GM in D5W 55 ML IVPB SCH ×3 (05:01→20:59)
[2018-04-20] MEDS: NovoLOG Insulin Flexpen SUBQ SCH ×4 (05:45→17:47)
--- NOTE | 2018-04-20 07:01 | General Progress Note ---
Assessment/Plan Assessment/Plan # Anemia of chronic disease -- baseline appears to be 10-11 reviewed labs from 2013 --> at this time decreased, anemia panel has been ordered on prior admission and c/w acd --> transfuse as needed, hgb goal >7 --> no evidence of hemolysis noted --> anemia panel reviewed and is negative as well # Leukocytosis likely related to septic shock --> WBC has improved --> on abx and ivf --> appreciate ID recs and workup --> surg recs reviewed # Hematoma of the right groin -- 5.1 x 6.6 x 20 cm hyperattenuating right proximal thigh mass. 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 --> On heparin 5k units. # Abnormal LFTs --> likely shock liver from overt sepsis. --> trend labs # Decubitus ulcer of sacral region, unstageable, 5cm x 4cm unstagable sacral decubitus ulcer, no drainage, mild periedge edema/erythema, soft, no odor present upon admission. will be cared for during hospital sta --> surg eval # Severe sepsis --> on abx as per ID # Respiratory failure withc coarse rhonchi --> thora evaluation --> as per pulm Greatly appreciate consultation! Subjective Allergies: Coded Allergies: PENICILLINS (Unverified Allergy, Mild, 12/04/12) Subjective Pt nonverbal. No acute events. H/H stable. Objective Last 24 Hour Vital Signs Date Time Temp Pulse Resp B/P (MAP) Pulse Ox O2 Delivery O2 Flow Rate FiO2 04/20/18 04:00 98.5 75 20 168/70 (102) 100 04/20/18 03:47 168/70 04/20/18 00:00 98.6 70 20 156/69 (98) 100 04/19/18 21:40 157/60 04/19/18 21:00 Nasal Cannula 2.0 04/19/18 20:50 78 165/58 04/19/18 20:00 98.6 78 20 165/58 (93) 100 04/19/18 16:27 154/68 04/19/18 16:00 98.1 69 20 154/68 (96) 100 04/19/18 12:35 70 163/58 04/19/18 12:34 70 163/58 (93) 04/19/18 12:00 99.2 61 20 162/61 (94) 99 04/19/18 10:14 74 170/65 04/19/18 10:14 170/65 04/19/18 10:08 74 170/65 (100) 04/19/18 09:00 Nasal Cannula 2.0 04/19/18 08:00 99.4 76 20 150/70 (96) 100 Intake and Output 04/19/18 04/20/18 18:59 06:59 Intake Total 640 ml 855 ml Output Total 850 ml 1100 ml Balance -210 ml -245 ml Intake Free Water 100 ml 200 ml IV Total 55 ml Tube Feeding 540 ml 600 ml Output Urine Total 850 ml 1100 ml # Bowel Movements 2 Height (Feet): 5 Height (Inches): 3.00 Weight (Pounds): 169 General Appearance: no apparent distress EENT: TMs normal Neck: supple Cardiovascular: regular rhythm Respiratory/Chest: no respiratory distress Abdomen: soft Extremities: normal range of motion Objective PHYSICAL EXAMINATION: VITAL SIGNS: Have been reviewed. HEAD AND NECK: Shows no jugular venous distention. LUNGS: Coarse rhonchi. CARDIOVASCULAR: Regular S1 and S2 with no gallop. ABDOMEN: Status post G-tube. EXTREMITIES: No pitting edema. Aleksandr Kern MD Apr 20, 2018 07:01
[2018-04-20] MEDS: Docusate 100mg/10ml Liq GT SCH ×3 (09:15→17:45)
[2018-04-20] MEDS: Metoprolol Tartrate 12.5mg TAB GT SCH (09:15)
[2018-04-20] MEDS: Heparin 5000 units/ml inj SUBQ SCH ×2 (09:16→21:07)
--- NOTE | 2018-04-20 10:30 | Nephrology Progress Note ---
Assessment/Plan Problem List: (1) Hypertension (2) MARK (acute kidney injury) (3) CKD (chronic kidney disease) (4) Diabetic nephropathy Assessment acute on chronic renal failure: Dehydration HTN DM / Proteinuria / HypoAlbuminemia Encephalopathy due to metabolic factor or toxin Hypoglycemia Anemia Decubitus ulcer of sacral region, unstageable PEG (percutaneous endoscopic gastrostomy) status Plan DC IV fluid BP meds- adjusted Monitor BS- Anemia conn avoid Nephrotoxics Monitor renal parameters per orders Subjective ROS Limited/Unobtainable: No Constitutional: Reports: malaise Objective Objective Last 24 Hour Vital Signs Date Time Temp Pulse Resp B/P (MAP) Pulse Ox O2 Delivery O2 Flow Rate FiO2 04/20/18 09:16 74 162/56 04/20/18 09:15 74 162/56 04/20/18 09:00 Nasal Cannula 2.0 04/20/18 08:00 98.0 74 18 163/56 (91) 98 04/20/18 04:00 98.5 75 20 168/70 (102) 100 04/20/18 03:47 168/70 04/20/18 00:00 98.6 70 20 156/69 (98) 100 04/19/18 21:40 157/60 04/19/18 21:00 Nasal Cannula 2.0 04/19/18 20:50 78 165/58 04/19/18 20:00 98.6 78 20 165/58 (93) 100 04/19/18 16:27 154/68 04/19/18 16:00 98.1 69 20 154/68 (96) 100 04/19/18 12:35 70 163/58 04/19/18 12:34 70 163/58 (93) 04/19/18 12:00 99.2 61 20 162/61 (94) 99 Intake and Output 04/19/18 04/20/18 18:59 06:59 Intake Total 640 ml 855 ml Output Total 850 ml 1100 ml Balance -210 ml -245 ml Intake Free Water 100 ml 200 ml IV Total 55 ml Tube Feeding 540 ml 600 ml Output Urine Total 850 ml 1100 ml # Bowel Movements 2 Height (Feet): 5 Height (Inches): 3.00 Weight (Pounds): 169 General Appearance: no apparent distress Respiratory/Chest: decreased breath sounds Abdomen: soft Objective no change Phil Ortiz MD Apr 20, 2018 10:30
[2018-04-20] MEDS ORDERED: Metoprolol Tartrate 12.5mg TAB GT SCH (10:34)
--- NOTE | 2018-04-20 10:42 | GI Progress Note ---
Assessment/Plan Problems: (1) Anemia ICD Codes: D64.9 - Anemia, unspecified SNOMED: 831890643 (2) Diabetic nephropathy ICD Codes: E11.21 - Type 2 diabetes mellitus with diabetic nephropathy SNOMED: 47211660, 819245097 (3) Hypoglycemia ICD Codes: E16.2 - Hypoglycemia, unspecified SNOMED: 827222304 (4) Mass of right thigh ICD Codes: R22.41 - Localized swelling, mass and lump, right lower limb SNOMED: 934032713 (5) PEG (percutaneous endoscopic gastrostomy) status ICD Codes: Z93.1 - Gastrostomy status SNOMED: 974900963, 434637651 Status: unchanged Status Narrative Discussed with Dr. Post. Assessment/Plan s/p colonoscopy>>> no rectal mass seen OB stool negative GTFs per RD to goal fu labs prn transfusions ppi dc planning per primary team The patient was seen and examined at bedside and all new and available data was reviewed in the patients chart. I agree with the above findings, impression and plan. (Patient seen earlier today. Signature stamp does not reflect patient encounter time.). - Ruben Post MD Subjective Subjective limited Objective Last 24 Hour Vital Signs Date Time Temp Pulse Resp B/P (MAP) Pulse Ox O2 Delivery O2 Flow Rate FiO2 04/20/18 09:16 74 162/56 04/20/18 09:15 74 162/56 04/20/18 09:00 Nasal Cannula 2.0 04/20/18 08:00 98.0 74 18 163/56 (91) 98 04/20/18 04:00 98.5 75 20 168/70 (102) 100 04/20/18 03:47 168/70 04/20/18 00:00 98.6 70 20 156/69 (98) 100 04/19/18 21:40 157/60 04/19/18 21:00 Nasal Cannula 2.0 04/19/18 20:50 78 165/58 04/19/18 20:00 98.6 78 20 165/58 (93) 100 04/19/18 16:27 154/68 04/19/18 16:00 98.1 69 20 154/68 (96) 100 04/19/18 12:35 70 163/58 04/19/18 12:34 70 163/58 (93) 04/19/18 12:00 99.2 61 20 162/61 (94) 99 Intake and Output 04/19/18 04/20/18 18:59 06:59 Intake Total 640 ml 855 ml Output Total 850 ml 1100 ml Balance -210 ml -245 ml Intake Free Water 100 ml 200 ml IV Total 55 ml Tube Feeding 540 ml 600 ml Output Urine Total 850 ml 1100 ml # Bowel Movements 2 Height (Feet): 5 Height (Inches): 3.00 Weight (Pounds): 169 General Appearance: no apparent distress, thin Cardiovascular: normal rate Respiratory/Chest: normal breath sounds, no respiratory distress Abdominal Exam: normal bowel sounds, non tender, soft, GT site - c/d/i Extremities: non-tender Loraine Wick NP Apr 20, 2018 10:42
--- NOTE | 2018-04-20 11:59 | Diagnostic Imaging Report ---
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 Color flow duplex sonography reveals calcification throughout the superficial femoral artery. There is no evidence of significant stenosis or occlusion within this segment. A moderate (50-60%) stenosis is seen in the proximal superficial femoral artery. The tibioperoneal trunk was not well visualized. The posterior tibial artery was also not well visualized. The anterior and dorsalis pedis arteries are also mildly calcified. Doppler posterior tibial artery waveform analysis is monophasic, consistent with moderatel ischemia at rest. LEFT LEG: Iliac and Common femoral artery waveform analysis is within normal limits at rest. Color flow duplex sonography reveals calcification throughout the superficial femoral artery and popliteal artery. There is no evidence of significant stenosis or occlusion within this segment. The tibioperoneal trunk was not well visualized. The distal posterior, dorsalis pedis and anterior arteries are also mildly calcified. The Doppler tibial artery waveform analysis is compatible with moderate ischemia at rest. Impression: Right groin and proximal thigh a hematoma with pseudoaneurysm noted, appearing to come off of the superficial femoral artery, measuring (7.0 cm x 5.0 x 5.0 cm). Arterial-venous Fistula anastomosis: 2.9 mm, velocity is 494cm/s DIPAK Rehman was notified of abnormal results at 1700 hours.
--- NOTE | 2018-04-20 11:59 | Diagnostic Imaging Report ---
APPROVED REPORT CPT Code: 51960 Present Symptoms Comments: Weakness BILATERAL: Imaging reveals a patent deep venous system bilaterally. There is no evidence of thrombus within the femoral, popliteal or tibial segments. The greater saphenous veins are also within normal limits. Doppler indicates normal spontaneous flow within these segments. INCIDENTAL FINDING: A large Arterial-Venous Fistula noted near the superficial femoral area, with hematoma around.
--- NOTE | 2018-04-20 12:11 | General Surgery Progress Note ---
General Surgery-Progress Note Subjective Additional Comments no acute events Objective Last 24 Hour Vital Signs Date Time Temp Pulse Resp B/P (MAP) Pulse Ox O2 Delivery O2 Flow Rate FiO2 04/20/18 11:18 56 185/70 04/20/18 11:18 185/70 18 09:16 74 162/56 04/20/18 09:15 74 162/56 04/20/18 09:00 Nasal Cannula 2.0 04/20/18 08:00 98.0 74 18 163/56 (91) 98 04/20/18 04:00 98.5 75 20 168/70 (102) 100 04/20/18 03:47 168/70 04/20/18 00:00 98.6 70 20 156/69 (98) 100 04/19/18 21:40 157/60 04/19/18 21:00 Nasal Cannula 2.0 04/19/18 20:50 78 165/58 04/19/18 20:00 98.6 78 20 165/58 (93) 100 04/19/18 16:27 154/68 04/19/18 16:00 98.1 69 20 154/68 (96) 100 04/19/18 12:35 70 163/58 04/19/18 12:34 70 163/58 (93) I&O Intake and Output 04/19/18 04/20/18 18:59 06:59 Intake Total 640 ml 855 ml Output Total 850 ml 1100 ml Balance -210 ml -245 ml Intake Free Water 100 ml 200 ml IV Total 55 ml Tube Feeding 540 ml 600 ml Output Urine Total 850 ml 1100 ml # Bowel Movements 2 Dressing: other Wound: other Drains: other Cardiovascular: RSR Respiratory: decreased breath sounds Abdomen: soft, flat, present bowel sounds Extremities: other Plan Problems: (1) Mass of right thigh Assessment & Plan: likely hematoma. see below (2) Hematoma Assessment & Plan: Right Thigh Hematoma. Likely from prior femoral line insertion given puncture site. Will obtain records to identify when and if line placed no signs of infection will obtain venous duplex of lower extremity and US of site to further evaluation warm compress will monitor clinically for now thank you for this consultation will follow with recs Imaging reveals a patent deep venous system bilaterally. There is no evidence of thrombus within the femoral, popliteal or tibial segments. The greater saphenous veins are also within normal limits. Doppler indicates normal spontaneous flow within these segments. 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 -vascular consult (3) Decubitus ulcer of sacral region, unstageable Assessment & Plan: Resolving Stage IV sacral decubitus ulcer 4cm x 3cm with area of fibrinous debris / sloth in center. surrounding granulation tissue. prior scar periwound healing without active infection. no odor. no signs of active infection bilateral heel ulcers / DTPI wounds present on admission and will be cared for during hospital stay. please refer to photos for details Pt presents with resolving full thickness pressure injury to sacrum (L)3cm x (W) 2.9cm wound bed with Biofilm and trace loose slough otherwise viable.(+) maceration along edges with dark skin tone periwound.Resolving pressure injury to R heel (L)3.5cm x (W)4cm edges and periwound dry and dark but wound is pink and fluctuant centrally..Resolving pressure injury L heel centrally wound bed pink and dry with dry, dark borders without fluctuance. -wash wounds with NS daily -cleanse sacral wound with Saline.Apply Therahoney.Cavilon wipes along borders.Cover with Optifoam drsg Daily and prn. -cavilon wipes to both heels.Cover with Optifoam drsg. Change every 7 days and prn. -reposition at least every 2hours or as tolerated. -off-load heels with pillow. thank you Jean Marie Park Apr 20, 2018 12:11
--- NOTE | 2018-04-20 14:51 | Infectious Diseases Prog Note ---
Assessment/Plan Assessment/Plan A: 1. Sepsis/ Systemic inflammatory response syndrome with hypoglycemia, 2. pneumonia. 3. Diabetes mellitus. 4. Chronic kidney disease. 5. Anemia. 6. Seizure disorder. 7. 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 Diverticulosis & internal hemorrhoids P: Continue Zosyn will f/u cultures Subjective ROS Limited/Unobtainable: Yes Constitutional: Reports: no symptoms Allergies: Coded Allergies: PENICILLINS (Unverified Allergy, Mild, 04/20/18) 04/20/18- Patient has been on pip-tazo for this admission since 04/15/18 as well as previous admission. Pt has Penicillin allergy on profile-unknown reactions. Mirza Gallo and Belgica Padillaan aware of allergy and are okay with continuing with pip-tazo. No reactions noted Objective Vital Signs Last 24 Hour Vital Signs Date Time Temp Pulse Resp B/P (MAP) Pulse Ox O2 Delivery O2 Flow Rate FiO2 04/20/18 12:39 160/60 (93) 04/20/18 12:00 98.1 55 19 185/75 (111) 100 19 04/20/18 11:18 56 185/70 04/20/18 11:18 185/70 04/20/18 09:16 74 162/56 04/20/18 09:15 74 162/56 04/20/18 09:00 Nasal Cannula 2.0 04/20/18 08:00 98.0 74 18 163/56 (91) 98 04/20/18 04:00 98.5 75 20 168/70 (102) 100 04/20/18 03:47 168/70 04/20/18 00:00 98.6 70 20 156/69 (98) 100 04/19/18 21:40 157/60 04/19/18 21:00 Nasal Cannula 2.0 04/19/18 20:50 78 165/58 04/19/18 20:00 98.6 78 20 165/58 (93) 100 04/19/18 16:27 154/68 04/19/18 16:00 98.1 69 20 154/68 (96) 100 Height (Feet): 5 Height (Inches): 3.00 Weight (Pounds): 169 General Appearance: no acute distress HEENT: mucous membranes moist Respiratory/Chest: lungs clear Cardiovascular: normal rate Abdomen: soft, non tender, other - GT feeding Extremities: other - R grain hard mass Neurologic/Psychiatric: aphasia Current Medications Medications (Trade) Dose Ordered Sig/Gelacio Route PRN Reason Start Time Stop Time Status Last Admin Dose Admin Acetaminophen (Tylenol) 650 mg Q4H PRN RECTAL fever (temp>100.5F) 04/15/18 18:15 05/14/18 22:14 Amlodipine Besylate (Norvasc) 10 mg DAILY GT 04/19/18 09:00 05/17/18 08:59 04/20/18 09:16 Bisacodyl (Dulcolax) 10 mg DAILYPRN PRN RECTAL Constipation 04/15/18 16:15 05/14/18 16:14 Clonidine HCl (Catapres TTS-3) 1 patch QWEEK TDERMAL 04/17/18 16:00 05/17/18 15:59 04/17/18 16:22 Clonidine HCl (Catapres Tab) 0.1 mg Q4H PRN GT bp over 165 syst 04/18/18 15:00 05/16/18 07:59 Dextrose (Dextrose 50%) 25 ml Q30M PRN IV Hypoglycemia 04/15/18 16:30 05/15/18 16:16 Dextrose (Dextrose 50%) 50 ml Q30M PRN IV hypoglycemia 04/15/18 16:30 05/15/18 16:29 Diphenhydramine HCl (Benadryl) 25 mg Q6H PRN GT Itching/Pruritis 04/15/18 16:15 05/14/18 22:14 Docusate Sodium (Colace) 100 mg TID GT 04/16/18 13:00 05/15/18 08:59 04/20/18 13:02 Heparin Sodium (Porcine) (Heparin 5000 units/ml) 5,000 units EVERY 12 HOURS SUBQ 04/15/18 21:00 05/15/18 20:59 04/20/18 09:16 Hydralazine HCl (Apresoline) 50 mg Q6H GT 04/19/18 16:30 05/17/18 16:29 04/20/18 11:18 Insulin Aspart (NovoLOG) EVERY 6 HOURS SUBQ 04/15/18 18:00 05/15/18 07:59 04/20/18 11:52 Lansoprazole (Prevacid) 30 mg BID GT 04/18/18 18:00 05/18/18 17:59 04/20/18 09:14 Metoprolol Tartrate (Lopressor) 25 mg Q12HR GT 04/20/18 21:00 05/19/18 20:59 Morphine Sulfate (Morphine Sulfate) 1 mg Q3H PRN IVP Breakthrough Pain 04/15/18 16:30 04/22/18 16:29 Morphine Sulfate (Morphine Sulfate) 2 mg Q3H PRN IVP Moderate Pain (Pain Scale 4-6) 04/15/18 16:30 04/22/18 16:29 Ondansetron HCl (Zofran) 4 mg Q6H PRN IVP Nausea & Vomiting 04/15/18 16:15 05/14/18 22:14 Piperacillin Sod/ Tazobactam Sod 2.25 gm/Dextrose 55 ml @ 110 mls/hr Q8HR IVPB 04/15/18 22:00 04/22/18 21:59 04/20/18 13:03 Wilder French MD Apr 20, 2018 14:51
--- NOTE | 2018-04-20 15:07 | Cardiac Electrophysiology PN ---
Assessment/Plan Assessment/Plan 1. Bradycardia with heart rate in the 50s and history of paroxysmal atrial fibrillation. HR better 2. Paroxysmal atrial fibrillation, on metoprolol 25 bid 3. Hypertension on Norvasc 10 qd, Hydralazine 25 q6 hr, metoprolol 25 bid, Clonidine patch and p.r.n. clonidine. 4. Dysphagia, status post PEG placement. 5. Large Right femoral AV fistula/ pseudoaneurysm. FU with Dr. Park and Dr. Chisholm 6. Sacral decubitus ulcer on antibiotic. 7. Anemia, S/P colonoscopy by Dr Sejal LOVE RN Subjective Subjective No CP or SOB.Colonoscopy showed diverticulosis Objective Last 24 Hour Vital Signs Date Time Temp Pulse Resp B/P (MAP) Pulse Ox O2 Delivery O2 Flow Rate FiO2 04/20/18 12:39 160/60 (93) 04/20/18 12:00 98.1 55 19 185/75 (111) 100 19 04/20/18 11:18 56 185/70 04/20/18 11:18 185/70 04/20/18 09:16 74 162/56 04/20/18 09:15 74 162/56 04/20/18 09:00 Nasal Cannula 2.0 04/20/18 08:00 98.0 74 18 163/56 (91) 98 04/20/18 04:00 98.5 75 20 168/70 (102) 100 04/20/18 03:47 168/70 04/20/18 00:00 98.6 70 20 156/69 (98) 100 04/19/18 21:40 157/60 04/19/18 21:00 Nasal Cannula 2.0 04/19/18 20:50 78 165/58 04/19/18 20:00 98.6 78 20 165/58 (93) 100 04/19/18 16:27 154/68 04/19/18 16:00 98.1 69 20 154/68 (96) 100 Intake and Output 04/19/18 04/20/18 19:00 07:00 Intake Total 700 ml 855 ml Output Total 850 ml 1100 ml Balance -150 ml -245 ml Intake Free Water 100 ml 200 ml IV Total 55 ml Tube Feeding 600 ml 600 ml Output Urine Total 850 ml 1100 ml # Bowel Movements 2 Objective HEAD AND NECK: No JVD LUNGS: Coarse rhonchi. CARDIOVASCULAR: Regular S1 and S2 with no murmur. ABDOMEN: Status post G-tube. EXTREMITIES: No pitting edema. Right femoral Mass/hematoma Everett Nair MD Apr 20, 2018 15:07
--- NOTE | 2018-04-20 15:08 | Pulmonology Progress Note ---
Assessment/Plan Problems: (1) Pleural effusion (2) Lung nodule < 6cm on CT (3) Pneumonia (4) Encephalopathy due to metabolic factor or toxin (5) Decubitus ulcer of sacral region, unstageable (6) Hematoma (7) Hypoglycemia (8) Mass of right thigh (9) Abnormal LFTs (10) MARK (acute kidney injury) (11) CKD (chronic kidney disease) (12) Shock (13) Hypertension (14) Sepsis (15) Seizure disorder (16) Anemia (17) PEG (percutaneous endoscopic gastrostomy) status (18) long-term resident (19) Rectal abnormality Assessment/Plan Thoracentesis evaluation, ? still not done, will re-order Optimize pulmonary hygiene/mobilize as tolerated PRN O2 PRN HHN's Continue Zosyn (D6) per ID F/U Cx's F/U vascular and surgery recs Monitor electrolytes and renal function Wound care TF's DVT Px: Hep SQ DNAR/DNI, continue to discuss GOC, consider supportive care evaluation Subjective Allergies: Coded Allergies: PENICILLINS (Unverified Allergy, Mild, 04/20/18) 04/20/18- Patient has been on pip-tazo for this admission since 04/15/18 as well as previous admission. Pt has Penicillin allergy on profile-unknown reactions. Mirza Gallo and Belgica Padillaan aware of allergy and are okay with continuing with pip-tazo. No reactions noted Subjective AFVSS, O2 needs stable No distress, no cough, no FC, chet TF Objective Last 24 Hour Vital Signs Date Time Temp Pulse Resp B/P (MAP) Pulse Ox O2 Delivery O2 Flow Rate FiO2 04/20/18 12:39 160/60 (93) 04/20/18 12:00 98.1 55 19 185/75 (111) 100 19 04/20/18 11:18 56 185/70 04/20/18 11:18 185/70 04/20/18 09:16 74 162/56 04/20/18 09:15 74 162/56 04/20/18 09:00 Nasal Cannula 2.0 04/20/18 08:00 98.0 74 18 163/56 (91) 98 04/20/18 04:00 98.5 75 20 168/70 (102) 100 04/20/18 03:47 168/70 04/20/18 00:00 98.6 70 20 156/69 (98) 100 04/19/18 21:40 157/60 04/19/18 21:00 Nasal Cannula 2.0 04/19/18 20:50 78 165/58 04/19/18 20:00 98.6 78 20 165/58 (93) 100 04/19/18 16:27 154/68 04/19/18 16:00 98.1 69 20 154/68 (96) 100 Intake and Output 04/19/18 04/20/18 19:00 07:00 Intake Total 700 ml 855 ml Output Total 850 ml 1100 ml Balance -150 ml -245 ml Intake Free Water 100 ml 200 ml IV Total 55 ml Tube Feeding 600 ml 600 ml Output Urine Total 850 ml 1100 ml # Bowel Movements 2 General Appearance: no acute distress, cachetic HEENT: normocephalic, atraumatic, anicteric, mucous membranes moist Respiratory/Chest: chest wall non-tender, lungs clear - with BiB rales and decreased BiB BS Cardiovascular: normal peripheral pulses, normal rate, regular rhythm Abdomen: normal bowel sounds, soft, non tender, no organomegaly, non distended , no mass, other - GT Extremities: no cyanosis, no clubbing, no edema Current Medications Medications (Trade) Dose Ordered Sig/Gelacio Route PRN Reason Start Time Stop Time Status Last Admin Dose Admin Acetaminophen (Tylenol) 650 mg Q4H PRN RECTAL fever (temp>100.5F) 04/15/18 18:15 05/14/18 22:14 Amlodipine Besylate (Norvasc) 10 mg DAILY GT 04/19/18 09:00 05/17/18 08:59 04/20/18 09:16 Bisacodyl (Dulcolax) 10 mg DAILYPRN PRN RECTAL Constipation 04/15/18 16:15 05/14/18 16:14 Clonidine HCl (Catapres TTS-3) 1 patch QWEEK TDERMAL 04/17/18 16:00 05/17/18 15:59 04/17/18 16:22 Clonidine HCl (Catapres Tab) 0.1 mg Q4H PRN GT bp over 165 syst 04/18/18 15:00 05/16/18 07:59 Dextrose (Dextrose 50%) 25 ml Q30M PRN IV Hypoglycemia 04/15/18 16:30 05/15/18 16:16 Dextrose (Dextrose 50%) 50 ml Q30M PRN IV hypoglycemia 04/15/18 16:30 05/15/18 16:29 Diphenhydramine HCl (Benadryl) 25 mg Q6H PRN GT Itching/Pruritis 04/15/18 16:15 05/14/18 22:14 Docusate Sodium (Colace) 100 mg TID GT 04/16/18 13:00 05/15/18 08:59 04/20/18 13:02 Heparin Sodium (Porcine) (Heparin 5000 units/ml) 5,000 units EVERY 12 HOURS SUBQ 04/15/18 21:00 05/15/18 20:59 04/20/18 09:16 Hydralazine HCl (Apresoline) 50 mg Q6H GT 04/19/18 16:30 05/17/18 16:29 04/20/18 11:18 Insulin Aspart (NovoLOG) EVERY 6 HOURS SUBQ 04/15/18 18:00 05/15/18 07:59 04/20/18 11:52 Lansoprazole (Prevacid) 30 mg BID GT 04/18/18 18:00 05/18/18 17:59 04/20/18 09:14 Metoprolol Tartrate (Lopressor) 25 mg Q12HR GT 04/20/18 21:00 05/19/18 20:59 Morphine Sulfate (Morphine Sulfate) 1 mg Q3H PRN IVP Breakthrough Pain 04/15/18 16:30 04/22/18 16:29 Morphine Sulfate (Morphine Sulfate) 2 mg Q3H PRN IVP Moderate Pain (Pain Scale 4-6) 04/15/18 16:30 04/22/18 16:29 Ondansetron HCl (Zofran) 4 mg Q6H PRN IVP Nausea & Vomiting 04/15/18 16:15 05/14/18 22:14 Piperacillin Sod/ Tazobactam Sod 2.25 gm/Dextrose 55 ml @ 110 mls/hr Q8HR IVPB 04/15/18 22:00 04/22/18 21:59 04/20/18 13:03 Javon Gan MD Apr 20, 2018 15:08
[2018-04-20] MEDS: Metoprolol 25mg tab GT SCH (20:59)
--- NOTE | 2018-04-20 22:29 | General Progress Note ---
Assessment/Plan Problem List: (1) CKD (chronic kidney disease) ICD Codes: N18.9 - Chronic kidney disease, unspecified SNOMED: 980668942 (2) Sepsis ICD Codes: A41.9 - Sepsis, unspecified organism SNOMED: 97497583 (3) Seizure disorder ICD Codes: G40.909 - Epilepsy, unspecified, not intractable, without status epilepticus SNOMED: 189507238 (4) Anemia ICD Codes: D64.9 - Anemia, unspecified SNOMED: 729972165 (5) MARK (acute kidney injury) ICD Codes: N17.9 - Acute kidney failure, unspecified SNOMED: 17903150 (6) Mass of right thigh ICD Codes: R22.41 - Localized swelling, mass and lump, right lower limb SNOMED: 813790298 (7) Hematoma ICD Codes: T14.8XXA - Other injury of unspecified body region, initial encounter SNOMED: 215564299 (8) Decubitus ulcer of sacral region, unstageable ICD Codes: L89.150 - Pressure ulcer of sacral region, unstageable SNOMED: 711764235, 626074937 (9) Diabetic nephropathy ICD Codes: E11.21 - Type 2 diabetes mellitus with diabetic nephropathy SNOMED: 50968465, 095004754 (10) Pneumonia ICD Codes: J18.9 - Pneumonia, unspecified organism SNOMED: 796183690 Status: progressing Assessment/Plan hematoma le azotemia improving wound care abx per id afebrile multiple decus sepsis arf on top of cri Subjective ROS Limited/Unobtainable: Yes Allergies: Coded Allergies: PENICILLINS (Unverified Allergy, Mild, 04/20/18) 04/20/18- Patient has been on pip-tazo for this admission since 04/15/18 as well as previous admission. Pt has Penicillin allergy on profile-unknown reactions. Mirza Gallo and Belgica French aware of allergy and are okay with continuing with pip-tazo. No reactions noted Objective Last 24 Hour Vital Signs Date Time Temp Pulse Resp B/P (MAP) Pulse Ox O2 Delivery O2 Flow Rate FiO2 04/20/18 20:59 67 157/67 04/20/18 20:00 98.5 71 22 143/64 (90) 99 04/20/18 17:45 154/67 04/20/18 16:00 97.8 63 19 154/67 (96) 100 04/20/18 12:39 160/60 (93) 04/20/18 12:00 98.1 55 19 185/75 (111) 100 19 04/20/18 11:18 56 185/70 04/20/18 11:18 185/70 04/20/18 09:16 74 162/56 04/20/18 09:15 74 162/56 04/20/18 09:00 Nasal Cannula 2.0 04/20/18 08:00 98.0 74 18 163/56 (91) 98 04/20/18 04:00 98.5 75 20 168/70 (102) 100 04/20/18 03:47 168/70 04/20/18 00:00 98.6 70 20 156/69 (98) 100 Intake and Output 04/19/18 04/20/18 19:00 07:00 Intake Total 700 ml 855 ml Output Total 850 ml 1100 ml Balance -150 ml -245 ml Intake Free Water 100 ml 200 ml IV Total 55 ml Tube Feeding 600 ml 600 ml Output Urine Total 850 ml 1100 ml # Bowel Movements 2 Height (Feet): 5 Height (Inches): 3.00 Weight (Pounds): 169 Neck: supple Cardiovascular: normal rate Respiratory/Chest: lungs clear Krzysztof Schneider MD Apr 20, 2018 22:29
[2018-04-21] VITALS: BP 151/87
[2018-04-21] MEDS: NovoLOG Insulin Flexpen SUBQ SCH ×5 (00:05→23:49)
[2018-04-21 04:00] VITALS: BP 155/50
[2018-04-21] MEDS: HydrALAZINE 50mg tab GT SCH ×4 (04:05→21:40)
[2018-04-21] MEDS: Piperacillin/Tazobactam 2.25 GM in D5W 55 ML IVPB SCH ×3 (05:32→21:38)
--- NOTE | 2018-04-21 07:40 | General Progress Note ---
Assessment/Plan Problem List: (1) Anemia ICD Codes: D64.9 - Anemia, unspecified SNOMED: 901431384 (2) Seizure disorder ICD Codes: G40.909 - Epilepsy, unspecified, not intractable, without status epilepticus SNOMED: 725631356 (3) Hypertension ICD Codes: I10 - Essential (primary) hypertension SNOMED: 15602312 (4) CKD (chronic kidney disease) ICD Codes: N18.9 - Chronic kidney disease, unspecified SNOMED: 703953740 (5) Hematoma ICD Codes: T14.8XXA - Other injury of unspecified body region, initial encounter SNOMED: 771081582 (6) Decubitus ulcer of sacral region, unstageable ICD Codes: L89.150 - Pressure ulcer of sacral region, unstageable SNOMED: 710824281, 779602117 (7) Diabetic nephropathy ICD Codes: E11.21 - Type 2 diabetes mellitus with diabetic nephropathy SNOMED: 66034070, 326231698 (8) PEG (percutaneous endoscopic gastrostomy) status ICD Codes: Z93.1 - Gastrostomy status SNOMED: 064172757, 963998722 (9) assisted resident ICD Codes: Z59.3 - Problems related to living in residential institution SNOMED: 891492737 (10) Rectal abnormality ICD Codes: K62.9 - Disease of anus and rectum, unspecified SNOMED: 1626782 Assessment/Plan s/p colonoscopy>>> no rectal mass seen OB stool negative GTFs per RD to goal fu labs prn transfusions ppi dc planning per primary team Subjective ROS Limited/Unobtainable: No Allergies: Coded Allergies: PENICILLINS (Unverified Allergy, Mild, 04/20/18) 04/20/18- Patient has been on pip-tazo for this admission since 04/15/18 as well as previous admission. Pt has Penicillin allergy on profile-unknown reactions. Mirza Gallo and Belgica French aware of allergy and are okay with continuing with pip-tazo. No reactions noted Objective Last 24 Hour Vital Signs Date Time Temp Pulse Resp B/P (MAP) Pulse Ox O2 Delivery O2 Flow Rate FiO2 04/21/18 04:05 150/50 04/21/18 04:00 98.1 59 20 155/50 (85) 100 12/8/18 00:00 98.1 66 22 151/87 (108) 100 04/20/18 23:07 146/51 04/20/18 21:00 Nasal Cannula 2.0 04/20/18 20:59 67 157/67 04/20/18 20:00 98.5 71 22 143/64 (90) 99 04/20/18 17:45 154/67 04/20/18 16:00 97.8 63 19 154/67 (96) 100 04/20/18 12:39 160/60 (93) 04/20/18 12:00 98.1 55 19 185/75 (111) 100 19 04/20/18 11:18 56 185/70 04/20/18 11:18 185/70 04/20/18 09:16 74 162/56 04/20/18 09:15 74 162/56 04/20/18 09:00 Nasal Cannula 2.0 04/20/18 08:00 98.0 74 18 163/56 (91) 98 Intake and Output 04/20/18 04/21/18 19:00 07:00 Intake Total 1035 ml 970 ml Output Total 1000 ml 500 ml Balance 35 ml 470 ml Intake Free Water 260 ml 200 ml IV Total 55 ml 110 ml Tube Feeding 720 ml 660 ml Output Urine Total 1000 ml 500 ml # Bowel Movements 1 1 Height (Feet): 5 Height (Inches): 3.00 Weight (Pounds): 169 General Appearance: no apparent distress EENT: normal ENT inspection Neck: supple Respiratory/Chest: decreased breath sounds Abdomen: normal bowel sounds, non tender, soft Extremities: non-tender Ruben Post MD Apr 21, 2018 07:40
[2018-04-21 08:00] VITALS: BP 166/56
[2018-04-21] MEDS: Docusate 100mg/10ml Liq GT SCH ×3 (08:11→17:03)
[2018-04-21] MEDS: Metoprolol 25mg tab GT SCH (08:12)
[2018-04-21] MEDS: Heparin 5000 units/ml inj SUBQ SCH ×2 (08:14→21:39)
--- NOTE | 2018-04-21 08:15 | Pulmonology Progress Note ---
Assessment/Plan Assessment/Plan Problems: (1) Pleural effusion (2) Lung nodule < 6cm on CT (3) Pneumonia (4) Encephalopathy due to metabolic factor or toxin (5) Decubitus ulcer of sacral region, unstageable (6) Hematoma (7) Hypoglycemia (8) Mass of right thigh (9) Abnormal LFTs (10) MARK (acute kidney injury) (11) CKD (chronic kidney disease) (12) Shock (13) Hypertension (14) Sepsis (15) Seizure disorder (16) Anemia (17) PEG (percutaneous endoscopic gastrostomy) status (18) [facility] resident (19) Rectal abnormality Assessment/Plan Thoracentesis evaluation pending Monday Optimize pulmonary hygiene/mobilize as tolerated PRN O2 PRN HHN's Continue Zosyn (D6) per ID, F/U Cx's F/U vascular and surgery recs Monitor electrolytes and renal function Wound care TF's NPO DVT Px: Hep SQ DNAR/DNI, continue to discuss GOC, consider supportive care evaluation Subjective ROS Limited/Unobtainable: No Allergies: Coded Allergies: PENICILLINS (Unverified Allergy, Mild, 04/20/18) 04/20/18- Patient has been on pip-tazo for this admission since 04/15/18 as well as previous admission. Pt has Penicillin allergy on profile-unknown reactions. Mirza Gallo and Belgica French aware of allergy and are okay with continuing with pip-tazo. No reactions noted Subjective lethargic no events not getting oob no bleeding or fever noted Objective Last 24 Hour Vital Signs Date Time Temp Pulse Resp B/P (MAP) Pulse Ox O2 Delivery O2 Flow Rate FiO2 04/21/18 08:00 97.4 51 18 166/56 (92) 100 04/21/18 04:05 150/50 04/21/18 04:00 98.1 59 20 155/50 (85) 100 04/21/18 00:00 98.1 66 22 151/87 (108) 100 04/20/18 23:07 146/51 04/20/18 21:00 Nasal Cannula 2.0 04/20/18 20:59 67 157/67 04/20/18 20:00 98.5 71 22 143/64 (90) 99 04/20/18 17:45 154/67 04/20/18 16:00 97.8 63 19 154/67 (96) 100 04/20/18 12:39 160/60 (93) 04/20/18 12:00 98.1 55 19 185/75 (111) 100 19 04/20/18 11:18 56 185/70 04/20/18 11:18 185/70 04/20/18 09:16 74 162/56 04/20/18 09:15 74 162/56 04/20/18 09:00 Nasal Cannula 2.0 Intake and Output 04/20/18 04/21/18 19:00 07:00 Intake Total 1035 ml 970 ml Output Total 1000 ml 500 ml Balance 35 ml 470 ml Intake Free Water 260 ml 200 ml IV Total 55 ml 110 ml Tube Feeding 720 ml 660 ml Output Urine Total 1000 ml 500 ml # Bowel Movements 1 1 General Appearance: cachetic Respiratory/Chest: rhonchi Cardiovascular: normal rate, regular rhythm Abdomen: soft, non tender, no organomegaly Neurologic/Psychiatric: disoriented Current Medications Medications (Trade) Dose Ordered Sig/Gelacio Route PRN Reason Start Time Stop Time Status Last Admin Dose Admin Acetaminophen (Tylenol) 650 mg Q4H PRN RECTAL fever (temp>100.5F) 04/15/18 18:15 05/14/18 22:14 Amlodipine Besylate (Norvasc) 10 mg DAILY GT 04/19/18 09:00 05/17/18 08:59 04/20/18 09:16 Bisacodyl (Dulcolax) 10 mg DAILYPRN PRN RECTAL Constipation 04/15/18 16:15 05/14/18 16:14 Clonidine HCl (Catapres TTS-3) 1 patch QWEEK TDERMAL 04/17/18 16:00 05/17/18 15:59 04/17/18 16:22 Clonidine HCl (Catapres Tab) 0.1 mg Q4H PRN GT bp over 165 syst 04/18/18 15:00 05/16/18 07:59 Dextrose (Dextrose 50%) 25 ml Q30M PRN IV Hypoglycemia 04/15/18 16:30 05/15/18 16:16 Dextrose (Dextrose 50%) 50 ml Q30M PRN IV hypoglycemia 04/15/18 16:30 05/15/18 16:29 Diphenhydramine HCl (Benadryl) 25 mg Q6H PRN GT Itching/Pruritis 04/15/18 16:15 05/14/18 22:14 Docusate Sodium (Colace) 100 mg TID GT 04/16/18 13:00 05/15/18 08:59 04/20/18 17:45 Heparin Sodium (Porcine) (Heparin 5000 units/ml) 5,000 units EVERY 12 HOURS SUBQ 04/15/18 21:00 05/15/18 20:59 04/20/18 21:07 Hydralazine HCl (Apresoline) 50 mg Q6H GT 04/19/18 16:30 05/17/18 16:29 04/21/18 04:05 Insulin Aspart (NovoLOG) EVERY 6 HOURS SUBQ 04/15/18 18:00 05/15/18 07:59 04/21/18 05:35 Lansoprazole (Prevacid) 30 mg BID GT 04/18/18 18:00 05/18/18 17:59 04/20/18 17:45 Metoprolol Tartrate (Lopressor) 25 mg Q12HR GT 04/20/18 21:00 05/19/18 20:59 04/20/18 20:59 Morphine Sulfate (Morphine Sulfate) 1 mg Q3H PRN IVP Breakthrough Pain 04/15/18 16:30 04/22/18 16:29 Morphine Sulfate (Morphine Sulfate) 2 mg Q3H PRN IVP Moderate Pain (Pain Scale 4-6) 04/15/18 16:30 04/22/18 16:29 Ondansetron HCl (Zofran) 4 mg Q6H PRN IVP Nausea & Vomiting 04/15/18 16:15 05/14/18 22:14 Piperacillin Sod/ Tazobactam Sod 2.25 gm/Dextrose 55 ml @ 110 mls/hr Q8HR IVPB 04/15/18 22:00 04/22/18 21:59 04/21/18 05:32 Misty Lamb DO Apr 21, 2018 08:15
--- NOTE | 2018-04-21 09:33 | General Progress Note ---
Assessment/Plan Problem List: (1) Hypoglycemia ICD Codes: E16.2 - Hypoglycemia, unspecified SNOMED: 776661965 (2) CKD (chronic kidney disease) ICD Codes: N18.9 - Chronic kidney disease, unspecified SNOMED: 543122924 (3) Encephalopathy due to metabolic factor or toxin SNOMED: 674604727 (4) Hypertension ICD Codes: I10 - Essential (primary) hypertension SNOMED: 68171590 Assessment/Plan glucose values are elevated add Levemir 8 units daily first dose now continue NISS every 6 hours Subjective ROS Limited/Unobtainable: Yes Allergies: Coded Allergies: PENICILLINS (Unverified Allergy, Mild, 04/20/18) 04/20/18- Patient has been on pip-tazo for this admission since 04/15/18 as well as previous admission. Pt has Penicillin allergy on profile-unknown reactions. Mirza Gallo and Belgica French aware of allergy and are okay with continuing with pip-tazo. No reactions noted Subjective events noted Objective Last 24 Hour Vital Signs Date Time Temp Pulse Resp B/P (MAP) Pulse Ox O2 Delivery O2 Flow Rate FiO2 04/21/18 08:12 51 166/56 04/21/18 08:12 51 166/56 04/21/18 08:00 97.4 51 18 166/56 (92) 100 04/21/18 04:05 150/50 04/21/18 04:00 98.1 59 20 155/50 (85) 100 04/21/18 00:00 98.1 66 22 151/87 (108) 100 04/20/18 23:07 146/51 04/20/18 21:00 Nasal Cannula 2.0 04/20/18 20:59 67 157/67 04/20/18 20:00 98.5 71 22 143/64 (90) 99 04/20/18 17:45 154/67 04/20/18 16:00 97.8 63 19 154/67 (96) 100 04/20/18 12:39 160/60 (93) 04/20/18 12:00 98.1 55 19 185/75 (111) 100 19 04/20/18 11:18 56 185/70 04/20/18 11:18 185/70 Intake and Output 04/20/18 04/21/18 19:00 07:00 Intake Total 1035 ml 970 ml Output Total 1000 ml 500 ml Balance 35 ml 470 ml Intake Free Water 260 ml 200 ml IV Total 55 ml 110 ml Tube Feeding 720 ml 660 ml Output Urine Total 1000 ml 500 ml # Bowel Movements 1 1 Height (Feet): 5 Height (Inches): 3.00 Weight (Pounds): 169 General Appearance: no apparent distress Neck: normal alignment Cardiovascular: normal rate Respiratory/Chest: lungs clear Abdomen: normal bowel sounds Pelvis: normal external exam Objective Current Medications Medications (Trade) Dose Ordered Sig/Gelacio Route PRN Reason Start Time Stop Time Status Last Admin Dose Admin Acetaminophen (Tylenol) 650 mg Q4H PRN RECTAL fever (temp>100.5F) 04/15/18 18:15 05/14/18 22:14 Amlodipine Besylate (Norvasc) 10 mg DAILY GT 04/19/18 09:00 05/17/18 08:59 04/21/18 08:12 Bisacodyl (Dulcolax) 10 mg DAILYPRN PRN RECTAL Constipation 04/15/18 16:15 05/14/18 16:14 Clonidine HCl (Catapres TTS-3) 1 patch QWEEK TDERMAL 04/17/18 16:00 05/17/18 15:59 04/17/18 16:22 Clonidine HCl (Catapres Tab) 0.1 mg Q4H PRN GT bp over 165 syst 04/18/18 15:00 05/16/18 07:59 Dextrose (Dextrose 50%) 25 ml Q30M PRN IV Hypoglycemia 04/15/18 16:30 05/15/18 16:16 Dextrose (Dextrose 50%) 50 ml Q30M PRN IV hypoglycemia 04/15/18 16:30 05/15/18 16:29 Diphenhydramine HCl (Benadryl) 25 mg Q6H PRN GT Itching/Pruritis 04/15/18 16:15 05/14/18 22:14 Docusate Sodium (Colace) 100 mg TID GT 04/16/18 13:00 05/15/18 08:59 04/21/18 08:11 Heparin Sodium (Porcine) (Heparin 5000 units/ml) 5,000 units EVERY 12 HOURS SUBQ 04/15/18 21:00 05/15/18 20:59 04/21/18 08:14 Hydralazine HCl (Apresoline) 50 mg Q6H GT 04/19/18 16:30 05/17/18 16:29 04/21/18 04:05 Insulin Aspart (NovoLOG) EVERY 6 HOURS SUBQ 04/15/18 18:00 05/15/18 07:59 04/21/18 05:35 Lansoprazole (Prevacid) 30 mg BID GT 04/18/18 18:00 05/18/18 17:59 04/21/18 08:11 Lisinopril (Zestril) 10 mg DAILY ORAL 04/22/18 09:00 05/22/18 08:59 Lisinopril (Zestril) 10 mg ONCE ORAL 04/21/18 10:00 04/21/18 11:00 Morphine Sulfate (Morphine Sulfate) 1 mg Q3H PRN IVP Breakthrough Pain 04/15/18 16:30 04/22/18 16:29 Morphine Sulfate (Morphine Sulfate) 2 mg Q3H PRN IVP Moderate Pain (Pain Scale 4-6) 04/15/18 16:30 04/22/18 16:29 Ondansetron HCl (Zofran) 4 mg Q6H PRN IVP Nausea & Vomiting 04/15/18 16:15 05/14/18 22:14 Piperacillin Sod/ Tazobactam Sod 2.25 gm/Dextrose 55 ml @ 110 mls/hr Q8HR IVPB 04/15/18 22:00 04/22/18 21:59 04/21/18 05:32 Item Value Date Time Bedside Blood Glucose 255 mg/dl H 04/21/18 0552 Bedside Blood Glucose 230 mg/dl H 04/21/18 0005 Bedside Blood Glucose 239 mg/dl H 04/20/18 1812 Bedside Blood Glucose 245 mg/dl H 04/20/18 1152 Bedside Blood Glucose 192 mg/dl H 04/20/18 0545 Awais Badillo MD Apr 21, 2018 09:33
--- NOTE | 2018-04-21 09:54 | General Progress Note ---
Assessment/Plan Problem List: (1) CKD (chronic kidney disease) ICD Codes: N18.9 - Chronic kidney disease, unspecified SNOMED: 266677789 (2) Sepsis ICD Codes: A41.9 - Sepsis, unspecified organism SNOMED: 09916076 (3) Seizure disorder ICD Codes: G40.909 - Epilepsy, unspecified, not intractable, without status epilepticus SNOMED: 418879060 (4) Anemia ICD Codes: D64.9 - Anemia, unspecified SNOMED: 748664058 (5) MARK (acute kidney injury) ICD Codes: N17.9 - Acute kidney failure, unspecified SNOMED: 11836325 (6) Mass of right thigh ICD Codes: R22.41 - Localized swelling, mass and lump, right lower limb SNOMED: 971016791 (7) Hematoma ICD Codes: T14.8XXA - Other injury of unspecified body region, initial encounter SNOMED: 163034820 (8) Decubitus ulcer of sacral region, unstageable ICD Codes: L89.150 - Pressure ulcer of sacral region, unstageable SNOMED: 121455699, 409709267 (9) Diabetic nephropathy ICD Codes: E11.21 - Type 2 diabetes mellitus with diabetic nephropathy SNOMED: 48045314, 700933726 (10) Pneumonia ICD Codes: J18.9 - Pneumonia, unspecified organism SNOMED: 709795171 Status: progressing Assessment/Plan hematoma le azotemia stable reviewed chart wound care multiple decub sepsis arf on top of cri Subjective ROS Limited/Unobtainable: Yes Allergies: Coded Allergies: PENICILLINS (Unverified Allergy, Mild, 04/20/18) 04/20/18- Patient has been on pip-tazo for this admission since 04/15/18 as well as previous admission. Pt has Penicillin allergy on profile-unknown reactions. Mirza Gallo and Belgica French aware of allergy and are okay with continuing with pip-tazo. No reactions noted Objective Last 24 Hour Vital Signs Date Time Temp Pulse Resp B/P (MAP) Pulse Ox O2 Delivery O2 Flow Rate FiO2 04/21/18 08:12 51 166/56 04/21/18 08:12 51 166/56 04/21/18 08:00 97.4 51 18 166/56 (92) 100 04/21/18 04:05 150/50 04/21/18 04:00 98.1 59 20 155/50 (85) 100 04/21/18 00:00 98.1 66 22 151/87 (108) 100 04/20/18 23:07 146/51 04/20/18 21:00 Nasal Cannula 2.0 04/20/18 20:59 67 157/67 04/20/18 20:00 98.5 71 22 143/64 (90) 99 04/20/18 17:45 154/67 04/20/18 16:00 97.8 63 19 154/67 (96) 100 04/20/18 12:39 160/60 (93) 04/20/18 12:00 98.1 55 19 185/75 (111) 100 19 04/20/18 11:18 56 185/70 04/20/18 11:18 185/70 Intake and Output 04/20/18 04/21/18 19:00 07:00 Intake Total 1035 ml 970 ml Output Total 1000 ml 500 ml Balance 35 ml 470 ml Intake Free Water 260 ml 200 ml IV Total 55 ml 110 ml Tube Feeding 720 ml 660 ml Output Urine Total 1000 ml 500 ml # Bowel Movements 1 1 Height (Feet): 5 Height (Inches): 3.00 Weight (Pounds): 169 Cardiovascular: normal rate Respiratory/Chest: lungs clear Abdomen: soft Krzysztof Schneider MD Apr 21, 2018 09:54
[2018-04-21] MEDS ORDERED: Lisinopril 10mg tab ORAL SCH (10:00)
--- NOTE | 2018-04-21 10:54 | Nephrology Progress Note ---
Assessment/Plan Problem List: (1) Hypertension (2) MARK (acute kidney injury) (3) CKD (chronic kidney disease) (4) Diabetic nephropathy Assessment acute on chronic renal failure: Dehydration HTN DM / Proteinuria / HypoAlbuminemia Encephalopathy due to metabolic factor or toxin Hypoglycemia Anemia Decubitus ulcer of sacral region, unstageable PEG (percutaneous endoscopic gastrostomy) status Plan DC IV fluid BP meds- adjusted Monitor BS- Anemia conn avoid Nephrotoxics Monitor renal parameters per orders Subjective ROS Limited/Unobtainable: No Constitutional: Reports: malaise Objective Objective Last 24 Hour Vital Signs Date Time Temp Pulse Resp B/P (MAP) Pulse Ox O2 Delivery O2 Flow Rate FiO2 04/21/18 08:12 51 166/56 04/21/18 08:12 51 166/56 04/21/18 08:00 97.4 51 18 166/56 (92) 100 04/21/18 04:05 150/50 04/21/18 04:00 98.1 59 20 155/50 (85) 100 04/21/18 00:00 98.1 66 22 151/87 (108) 100 04/20/18 23:07 146/51 04/20/18 21:00 Nasal Cannula 2.0 04/20/18 20:59 67 157/67 04/20/18 20:00 98.5 71 22 143/64 (90) 99 04/20/18 17:45 154/67 04/20/18 16:00 97.8 63 19 154/67 (96) 100 04/20/18 12:39 160/60 (93) 04/20/18 12:00 98.1 55 19 185/75 (111) 100 19 04/20/18 11:18 56 185/70 04/20/18 11:18 185/70 Intake and Output 04/20/18 04/21/18 19:00 07:00 Intake Total 1035 ml 970 ml Output Total 1000 ml 500 ml Balance 35 ml 470 ml Intake Free Water 260 ml 200 ml IV Total 55 ml 110 ml Tube Feeding 720 ml 660 ml Output Urine Total 1000 ml 500 ml # Bowel Movements 1 1 Height (Feet): 5 Height (Inches): 3.00 Weight (Pounds): 169 General Appearance: no apparent distress Objective no change Phil Ortiz MD Apr 21, 2018 10:54
[2018-04-21] MEDS: Levemir Flexpen SUBQ SCH (11:29)
[2018-04-21 12:00] VITALS: BP 163/57
--- NOTE | 2018-04-21 13:39 | Infectious Diseases Prog Note ---
Assessment/Plan Assessment/Plan A: 1. Sepsis/ Systemic inflammatory response syndrome with hypoglycemia, 2. pneumonia. 3. Diabetes mellitus. 4. Chronic kidney disease. 5. Anemia. 6. Seizure disorder. 7. 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 Diverticulosis & internal hemorrhoids P: Continue Zosyn until tomorrow will f/u cultures Subjective ROS Limited/Unobtainable: Yes Constitutional: Reports: no symptoms Psychiatric: Reports: other - moaning Allergies: Coded Allergies: PENICILLINS (Unverified Allergy, Mild, 04/20/18) 04/20/18- Patient has been on pip-tazo for this admission since 04/15/18 as well as previous admission. Pt has Penicillin allergy on profile-unknown reactions. Mirza Gallo and Belgica Padillaan aware of allergy and are okay with continuing with pip-tazo. No reactions noted Objective Vital Signs Last 24 Hour Vital Signs Date Time Temp Pulse Resp B/P (MAP) Pulse Ox O2 Delivery O2 Flow Rate FiO2 04/21/18 12:00 98.4 62 19 163/57 (92) 100 04/21/18 11:26 166/56 04/21/18 11:26 166/56 04/21/18 09:00 Nasal Cannula 2.0 04/21/18 08:12 51 166/56 04/21/18 08:12 51 166/56 04/21/18 08:00 97.4 51 18 166/56 (92) 100 04/21/18 04:05 150/50 04/21/18 04:00 98.1 59 20 155/50 (85) 100 04/21/18 00:00 98.1 66 22 151/87 (108) 100 04/20/18 23:07 146/51 04/20/18 21:00 Nasal Cannula 2.0 04/20/18 20:59 67 157/67 04/20/18 20:00 98.5 71 22 143/64 (90) 99 04/20/18 17:45 154/67 04/20/18 16:00 97.8 63 19 154/67 (96) 100 Height (Feet): 5 Height (Inches): 3.00 Weight (Pounds): 169 HEENT: other - whitish tongue Respiratory/Chest: lungs clear Cardiovascular: normal rate Abdomen: soft, non tender, other - GT feeding Extremities: no edema, other - right groin hard mass Neurologic/Psychiatric: disoriented, aphasia Current Medications Medications (Trade) Dose Ordered Sig/Gelacio Route PRN Reason Start Time Stop Time Status Last Admin Dose Admin Acetaminophen (Tylenol) 650 mg Q4H PRN RECTAL fever (temp>100.5F) 04/15/18 18:15 05/14/18 22:14 Amlodipine Besylate (Norvasc) 10 mg DAILY GT 04/19/18 09:00 05/17/18 08:59 04/21/18 08:12 Bisacodyl (Dulcolax) 10 mg DAILYPRN PRN RECTAL Constipation 04/15/18 16:15 05/14/18 16:14 Clonidine HCl (Catapres TTS-3) 1 patch QWEEK TDERMAL 04/17/18 16:00 05/17/18 15:59 04/17/18 16:22 Clonidine HCl (Catapres Tab) 0.1 mg Q4H PRN GT bp over 165 syst 04/18/18 15:00 05/16/18 07:59 Dextrose (Dextrose 50%) 25 ml Q30M PRN IV Hypoglycemia 04/15/18 16:30 05/15/18 16:16 Dextrose (Dextrose 50%) 50 ml Q30M PRN IV hypoglycemia 04/15/18 16:30 05/15/18 16:29 Diphenhydramine HCl (Benadryl) 25 mg Q6H PRN GT Itching/Pruritis 04/15/18 16:15 05/14/18 22:14 Docusate Sodium (Colace) 100 mg TID GT 04/16/18 13:00 05/15/18 08:59 04/21/18 13:08 Heparin Sodium (Porcine) (Heparin 5000 units/ml) 5,000 units EVERY 12 HOURS SUBQ 04/15/18 21:00 05/15/18 20:59 04/21/18 08:14 Hydralazine HCl (Apresoline) 50 mg Q6H GT 04/19/18 16:30 05/17/18 16:29 04/21/18 11:26 Insulin Aspart (NovoLOG) EVERY 6 HOURS SUBQ 04/15/18 18:00 05/15/18 07:59 04/21/18 12:03 Insulin Detemir (Levemir) 8 units DAILY SUBQ 04/21/18 10:30 05/21/18 10:29 04/21/18 11:29 Lansoprazole (Prevacid) 30 mg BID GT 04/18/18 18:00 05/18/18 17:59 04/21/18 08:11 Lisinopril (Zestril) 10 mg DAILY ORAL 04/22/18 09:00 05/22/18 08:59 Morphine Sulfate (Morphine Sulfate) 1 mg Q3H PRN IVP Breakthrough Pain 04/15/18 16:30 04/22/18 16:29 Morphine Sulfate (Morphine Sulfate) 2 mg Q3H PRN IVP Moderate Pain (Pain Scale 4-6) 04/15/18 16:30 04/22/18 16:29 Ondansetron HCl (Zofran) 4 mg Q6H PRN IVP Nausea & Vomiting 04/15/18 16:15 05/14/18 22:14 Piperacillin Sod/ Tazobactam Sod 2.25 gm/Dextrose 55 ml @ 110 mls/hr Q8HR IVPB 04/15/18 22:00 04/22/18 21:59 04/21/18 13:08 Wilder French MD Apr 21, 2018 13:39
--- NOTE | 2018-04-21 13:47 | General Surgery Progress Note ---
General Surgery-Progress Note Subjective Symptoms: improved Additional Comments no acute events. hematoma stable. Objective Last 24 Hour Vital Signs Date Time Temp Pulse Resp B/P (MAP) Pulse Ox O2 Delivery O2 Flow Rate FiO2 04/21/18 12:00 98.4 62 19 163/57 (92) 100 04/21/18 11:26 166/56 04/21/18 11:26 166/56 04/21/18 09:00 Nasal Cannula 2.0 04/21/18 08:12 51 166/56 04/21/18 08:12 51 166/56 04/21/18 08:00 97.4 51 18 166/56 (92) 100 04/21/18 04:05 150/50 04/21/18 04:00 98.1 59 20 155/50 (85) 100 04/21/18 00:00 98.1 66 22 151/87 (108) 100 04/20/18 23:07 146/51 04/20/18 21:00 Nasal Cannula 2.0 04/20/18 20:59 67 157/67 04/20/18 20:00 98.5 71 22 143/64 (90) 99 04/20/18 17:45 154/67 04/20/18 16:00 97.8 63 19 154/67 (96) 100 I&O Intake and Output 04/20/18 04/21/18 18:59 06:59 Intake Total 1035 ml 1030 ml Output Total 1000 ml 500 ml Balance 35 ml 530 ml Intake Free Water 260 ml 200 ml IV Total 55 ml 110 ml Tube Feeding 720 ml 720 ml Output Urine Total 1000 ml 500 ml # Bowel Movements 1 1 Dressing: other Wound: clean, other Drains: other Cardiovascular: RSR Respiratory: clear, decreased breath sounds Abdomen: soft, non-tender, present bowel sounds Extremities: other Plan Problems: (1) Mass of right thigh Assessment & Plan: likely hematoma. see below (2) Hematoma Assessment & Plan: Right Thigh Hematoma. Likely from prior femoral line insertion given puncture site. Will obtain records to identify when and if line placed no signs of infection will obtain venous duplex of lower extremity and US of site to further evaluation warm compress will monitor clinically for now thank you for this consultation will follow with recs Imaging reveals a patent deep venous system bilaterally. There is no evidence of thrombus within the femoral, popliteal or tibial segments. The greater saphenous veins are also within normal limits. Doppler indicates normal spontaneous flow within these segments. 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 appreciate vascular input (3) Decubitus ulcer of sacral region, unstageable Assessment & Plan: Resolving Stage IV sacral decubitus ulcer 4cm x 3cm with area of fibrinous debris / sloth in center. surrounding granulation tissue. prior scar periwound healing without active infection. no odor. no signs of active infection bilateral heel ulcers / DTPI wounds present on admission and will be cared for during hospital stay. please refer to photos for details Pt presents with resolving full thickness pressure injury to sacrum (L)3cm x (W) 2.9cm wound bed with Biofilm and trace loose slough otherwise viable.(+) maceration along edges with dark skin tone periwound.Resolving pressure injury to R heel (L)3.5cm x (W)4cm edges and periwound dry and dark but wound is pink and fluctuant centrally..Resolving pressure injury L heel centrally wound bed pink and dry with dry, dark borders without fluctuance. -wash wounds with NS daily -cleanse sacral wound with Saline.Apply Therahoney.Cavilon wipes along borders.Cover with Optifoam drsg Daily and prn. -cavilon wipes to both heels.Cover with Optifoam drsg. Change every 7 days and prn. -reposition at least every 2hours or as tolerated. -off-load heels with pillow. thank you Jean Marie Park Apr 21, 2018 13:47
--- NOTE | 2018-04-21 13:55 | Cardiac Electrophysiology PN ---
Assessment/Plan Assessment/Plan 1. Bradycardia with heart rate in the 50s and history of paroxysmal atrial fibrillation. HR better 2. Paroxysmal atrial fibrillation, on metoprolol 25 bid 3. Hypertension on Norvasc 10 qd, Hydralazine 25 q6 hr, metoprolol 25 bid, Clonidine patch and p.r.n. clonidine. 4. Dysphagia, status post PEG placement. 5. Large Right femoral AV fistula/ pseudoaneurysm. FU with Dr. Park and Dr. Chisholm. Thrombin injection after DC at [facility] per Dr Chisholm 6. Sacral decubitus ulcer on antibiotic. 7. Anemia, S/P colonoscopy by Dr Post 8. Pleural effusion. Thoracentesis on Monday DW RN and Dr Xavier Chisholm Subjective Subjective Comfortable in NAD. Colonoscopy showed diverticulosis. Awaiting Thoracentesis on Monday Objective Last 24 Hour Vital Signs Date Time Temp Pulse Resp B/P (MAP) Pulse Ox O2 Delivery O2 Flow Rate FiO2 04/21/18 12:00 98.4 62 19 163/57 (92) 100 04/21/18 11:26 166/56 04/21/18 11:26 166/56 04/21/18 09:00 Nasal Cannula 2.0 04/21/18 08:12 51 166/56 04/21/18 08:12 51 166/56 04/21/18 08:00 97.4 51 18 166/56 (92) 100 04/21/18 04:05 150/50 04/21/18 04:00 98.1 59 20 155/50 (85) 100 04/21/18 00:00 98.1 66 22 151/87 (108) 100 04/20/18 23:07 146/51 04/20/18 21:00 Nasal Cannula 2.0 04/20/18 20:59 67 157/67 04/20/18 20:00 98.5 71 22 143/64 (90) 99 04/20/18 17:45 154/67 04/20/18 16:00 97.8 63 19 154/67 (96) 100 Intake and Output 04/20/18 04/21/18 18:59 06:59 Intake Total 1035 ml 1030 ml Output Total 1000 ml 500 ml Balance 35 ml 530 ml Intake Free Water 260 ml 200 ml IV Total 55 ml 110 ml Tube Feeding 720 ml 720 ml Output Urine Total 1000 ml 500 ml # Bowel Movements 1 1 Objective HEAD AND NECK: No JVD LUNGS: Coarse rhonchi. CARDIOVASCULAR: Regular S1 and S2 with no murmur. ABDOMEN: Status post G-tube. EXTREMITIES: No pitting edema. Right femoral Mass/hematoma Everett Nair MD Apr 21, 2018 13:55
[2018-04-21 16:00] VITALS: BP 156/61
[2018-04-21] MEDS ORDERED: Tubing IV Secondary IV ONE (17:06)
[2018-04-21] MEDS ORDERED: NS 275ml ONE (17:06)
[2018-04-21 20:00] VITALS: BP 151/67
[2018-04-22] VITALS: BP 155/46
[2018-04-22] MEDS: Morphine Sulfate 2mg/ml Inj IVP PRN ×2 (00:48→12:33)
[2018-04-22 04:00] VITALS: BP 153/67
[2018-04-22] MEDS: HydrALAZINE 50mg tab GT SCH ×4 (04:02→21:39)
[2018-04-22] MEDS: Piperacillin/Tazobactam 2.25 GM in D5W 55 ML IVPB SCH ×2 (05:03→15:01)
[2018-04-22] MEDS: NovoLOG Insulin Flexpen SUBQ SCH ×4 (06:03→23:45)
--- NOTE | 2018-04-22 07:13 | General Progress Note ---
Assessment/Plan Problem List: (1) Anemia ICD Codes: D64.9 - Anemia, unspecified SNOMED: 881094369 (2) Seizure disorder ICD Codes: G40.909 - Epilepsy, unspecified, not intractable, without status epilepticus SNOMED: 138399801 (3) Hypertension ICD Codes: I10 - Essential (primary) hypertension SNOMED: 63142570 (4) CKD (chronic kidney disease) ICD Codes: N18.9 - Chronic kidney disease, unspecified SNOMED: 761141748 (5) Hematoma ICD Codes: T14.8XXA - Other injury of unspecified body region, initial encounter SNOMED: 620234845 (6) Decubitus ulcer of sacral region, unstageable ICD Codes: L89.150 - Pressure ulcer of sacral region, unstageable SNOMED: 928163982, 001625912 (7) Diabetic nephropathy ICD Codes: E11.21 - Type 2 diabetes mellitus with diabetic nephropathy SNOMED: 28557902, 993060616 (8) PEG (percutaneous endoscopic gastrostomy) status ICD Codes: Z93.1 - Gastrostomy status SNOMED: 523270814, 651972753 (9) long term resident ICD Codes: Z59.3 - Problems related to living in residential institution SNOMED: 846258441 (10) Rectal abnormality ICD Codes: K62.9 - Disease of anus and rectum, unspecified SNOMED: 3333618 Assessment/Plan s/p colonoscopy>>> no rectal mass seen OB stool negative GTFs per RD to goal fu labs prn transfusions ppi dc planning per primary team Subjective ROS Limited/Unobtainable: No Allergies: Coded Allergies: PENICILLINS (Unverified Allergy, Mild, 04/20/18) 04/20/18- Patient has been on pip-tazo for this admission since 04/15/18 as well as previous admission. Pt has Penicillin allergy on profile-unknown reactions. Mirza Gallo and Belgica French aware of allergy and are okay with continuing with pip-tazo. No reactions noted Objective Last 24 Hour Vital Signs Date Time Temp Pulse Resp B/P (MAP) Pulse Ox O2 Delivery O2 Flow Rate FiO2 04/22/18 04:02 153/67 04/22/18 04:00 98.8 66 19 153/67 (95) 100 12/9/18 00:00 98.1 73 21 155/46 (82) 100 04/21/18 21:40 151/67 04/21/18 21:00 Nasal Cannula 2.0 04/21/18 20:00 98.0 65 20 151/67 (95) 100 04/21/18 17:03 156/61 04/21/18 16:00 98.8 61 18 156/61 (92) 100 04/21/18 12:00 98.4 62 19 163/57 (92) 100 04/21/18 11:26 166/56 04/21/18 11:26 166/56 04/21/18 09:00 Nasal Cannula 2.0 04/21/18 08:12 51 166/56 04/21/18 08:12 51 166/56 04/21/18 08:00 97.4 51 18 166/56 (92) 100 Intake and Output 04/21/18 04/22/18 19:00 07:00 Intake Total 920 ml 980 ml Output Total 550 ml Balance 920 ml 430 ml Intake Free Water 200 ml 320 ml Tube Feeding 720 ml 660 ml Output Urine Total 550 ml # Bowel Movements 3 Height (Feet): 5 Height (Inches): 3.00 Weight (Pounds): 169 General Appearance: no apparent distress EENT: normal ENT inspection Neck: supple Cardiovascular: normal rate Respiratory/Chest: decreased breath sounds Abdomen: normal bowel sounds, non tender, soft Extremities: non-tender Ruben Post MD Apr 22, 2018 07:13
[2018-04-22 08:00] VITALS: BP 144/52
[2018-04-22] MEDS ORDERED: Lisinopril 10mg tab ORAL SCH (09:00)
[2018-04-22] MEDS: Levemir Flexpen SUBQ SCH (09:00)
[2018-04-22] MEDS: Docusate 100mg/10ml Liq GT SCH ×3 (09:20→17:24)
[2018-04-22] MEDS: Heparin 5000 units/ml inj SUBQ SCH ×2 (09:27→21:00)
--- NOTE | 2018-04-22 09:56 | General Progress Note ---
Assessment/Plan Problem List: (1) Hypoglycemia ICD Codes: E16.2 - Hypoglycemia, unspecified SNOMED: 214546703 (2) CKD (chronic kidney disease) ICD Codes: N18.9 - Chronic kidney disease, unspecified SNOMED: 436708824 (3) Encephalopathy due to metabolic factor or toxin SNOMED: 878078285 (4) Hypertension ICD Codes: I10 - Essential (primary) hypertension SNOMED: 64257071 Assessment/Plan glucose values improved continue Levemir 8 units daily continue NISS every 6 hours Subjective ROS Limited/Unobtainable: Yes Allergies: Coded Allergies: PENICILLINS (Unverified Allergy, Mild, 04/20/18) 04/20/18- Patient has been on pip-tazo for this admission since 04/15/18 as well as previous admission. Pt has Penicillin allergy on profile-unknown reactions. Mirza Gallo and Belgica Padillaan aware of allergy and are okay with continuing with pip-tazo. No reactions noted Subjective events noted Objective Last 24 Hour Vital Signs Date Time Temp Pulse Resp B/P (MAP) Pulse Ox O2 Delivery O2 Flow Rate FiO2 04/22/18 09:20 144/52 04/22/18 09:20 65 144/52 04/22/18 08:00 97.8 65 19 144/52 (82) 100 04/22/18 04:02 153/67 04/22/18 04:00 98.8 66 19 153/67 (95) 100 04/22/18 00:00 98.1 73 21 155/46 (82) 100 04/21/18 21:40 151/67 04/21/18 21:00 Nasal Cannula 2.0 04/21/18 20:00 98.0 65 20 151/67 (95) 100 04/21/18 17:03 156/61 04/21/18 16:00 98.8 61 18 156/61 (92) 100 04/21/18 12:00 98.4 62 19 163/57 (92) 100 04/21/18 11:26 166/56 04/21/18 11:26 166/56 Intake and Output 04/21/18 04/22/18 19:00 07:00 Intake Total 920 ml 1040 ml Output Total 550 ml Balance 920 ml 490 ml Intake Free Water 200 ml 320 ml Tube Feeding 720 ml 720 ml Output Urine Total 550 ml # Bowel Movements 3 Height (Feet): 5 Height (Inches): 3.00 Weight (Pounds): 169 General Appearance: no apparent distress Neck: normal alignment Cardiovascular: regular rhythm Respiratory/Chest: lungs clear Abdomen: normal bowel sounds Pelvis: normal external exam Objective Current Medications Medications (Trade) Dose Ordered Sig/Gelacio Route PRN Reason Start Time Stop Time Status Last Admin Dose Admin Acetaminophen (Tylenol) 650 mg Q4H PRN RECTAL fever (temp>100.5F) 04/15/18 18:15 05/14/18 22:14 Amlodipine Besylate (Norvasc) 10 mg DAILY GT 04/19/18 09:00 05/17/18 08:59 04/22/18 09:20 Bisacodyl (Dulcolax) 10 mg DAILYPRN PRN RECTAL Constipation 04/15/18 16:15 05/14/18 16:14 Clonidine HCl (Catapres TTS-3) 1 patch QWEEK TDERMAL 04/17/18 16:00 05/17/18 15:59 04/17/18 16:22 Clonidine HCl (Catapres Tab) 0.1 mg Q4H PRN GT bp over 165 syst 04/18/18 15:00 05/16/18 07:59 Dextrose (Dextrose 50%) 25 ml Q30M PRN IV Hypoglycemia 04/15/18 16:30 05/15/18 16:16 Dextrose (Dextrose 50%) 50 ml Q30M PRN IV hypoglycemia 04/15/18 16:30 05/15/18 16:29 Diphenhydramine HCl (Benadryl) 25 mg Q6H PRN GT Itching/Pruritis 04/15/18 16:15 05/14/18 22:14 Docusate Sodium (Colace) 100 mg TID GT 04/16/18 13:00 05/15/18 08:59 04/22/18 09:20 Heparin Sodium (Porcine) (Heparin 5000 units/ml) 5,000 units EVERY 12 HOURS SUBQ 04/15/18 21:00 05/15/18 20:59 04/22/18 09:27 Hydralazine HCl (Apresoline) 50 mg Q6H GT 04/19/18 16:30 05/17/18 16:29 04/22/18 04:02 Insulin Aspart (NovoLOG) EVERY 6 HOURS SUBQ 04/15/18 18:00 05/15/18 07:59 04/22/18 06:03 Insulin Detemir (Levemir) 8 units DAILY SUBQ 04/21/18 10:30 05/21/18 10:29 04/22/18 09:00 Lansoprazole (Prevacid) 30 mg BID GT 04/18/18 18:00 05/18/18 17:59 04/22/18 09:20 Lisinopril (Zestril) 10 mg DAILY ORAL 04/22/18 09:00 05/22/18 08:59 04/22/18 09:20 Morphine Sulfate (Morphine Sulfate) 1 mg Q3H PRN IVP Breakthrough Pain 04/15/18 16:30 04/22/18 16:29 04/22/18 00:48 Morphine Sulfate (Morphine Sulfate) 2 mg Q3H PRN IVP Moderate Pain (Pain Scale 4-6) 04/15/18 16:30 04/22/18 16:29 Ondansetron HCl (Zofran) 4 mg Q6H PRN IVP Nausea & Vomiting 04/15/18 16:15 05/14/18 22:14 Piperacillin Sod/ Tazobactam Sod 2.25 gm/Dextrose 55 ml @ 110 mls/hr Q8HR IVPB 04/15/18 22:00 04/22/18 21:59 04/22/18 05:03 Item Value Date Time Bedside Blood Glucose 175 mg/dl H 04/22/18 0900 Bedside Blood Glucose 175 mg/dl H 04/22/18 0603 Bedside Blood Glucose 179 mg/dl H 04/21/18 2349 Bedside Blood Glucose 240 mg/dl H 04/21/18 1800 Bedside Blood Glucose 236 mg/dl H 04/21/18 1203 Bedside Blood Glucose 255 mg/dl H 04/21/18 0552 Awais Badillo MD Apr 22, 2018 09:56
--- NOTE | 2018-04-22 09:58 | Nephrology Progress Note ---
Assessment/Plan Problem List: (1) Hypertension (2) MARK (acute kidney injury) (3) CKD (chronic kidney disease) (4) Diabetic nephropathy Assessment acute on chronic renal failure: Dehydration HTN DM / Proteinuria / HypoAlbuminemia Encephalopathy due to metabolic factor or toxin Hypoglycemia Anemia Decubitus ulcer of sacral region, unstageable PEG (percutaneous endoscopic gastrostomy) status Plan DC IV fluid BP meds- adjusted Monitor BS- Anemia conn avoid Nephrotoxics Monitor renal parameters per orders Subjective ROS Limited/Unobtainable: No Constitutional: Reports: malaise Objective Objective Last 24 Hour Vital Signs Date Time Temp Pulse Resp B/P (MAP) Pulse Ox O2 Delivery O2 Flow Rate FiO2 04/22/18 09:20 144/52 04/22/18 09:20 65 144/52 04/22/18 08:00 97.8 65 19 144/52 (82) 100 04/22/18 04:02 153/67 04/22/18 04:00 98.8 66 19 153/67 (95) 100 04/22/18 00:00 98.1 73 21 155/46 (82) 100 04/21/18 21:40 151/67 04/21/18 21:00 Nasal Cannula 2.0 04/21/18 20:00 98.0 65 20 151/67 (95) 100 04/21/18 17:03 156/61 04/21/18 16:00 98.8 61 18 156/61 (92) 100 04/21/18 12:00 98.4 62 19 163/57 (92) 100 04/21/18 11:26 166/56 04/21/18 11:26 166/56 Intake and Output 04/21/18 04/22/18 19:00 07:00 Intake Total 920 ml 1040 ml Output Total 550 ml Balance 920 ml 490 ml Intake Free Water 200 ml 320 ml Tube Feeding 720 ml 720 ml Output Urine Total 550 ml # Bowel Movements 3 Height (Feet): 5 Height (Inches): 3.00 Weight (Pounds): 169 General Appearance: no apparent distress Objective no change Phil Ortiz MD Apr 22, 2018 09:58
--- NOTE | 2018-04-22 10:07 | Pulmonology Progress Note ---
Assessment/Plan Assessment/Plan Problems: (1) Pleural effusion (2) Lung nodule < 6cm on CT (3) Pneumonia (4) Encephalopathy due to metabolic factor or toxin (5) Decubitus ulcer of sacral region, unstageable (6) Hematoma (7) Hypoglycemia (8) Mass of right thigh (9) Abnormal LFTs (10) MARK (acute kidney injury) (11) CKD (chronic kidney disease) (12) Shock (13) Hypertension (14) Sepsis (15) Seizure disorder (16) Anemia (17) PEG (percutaneous endoscopic gastrostomy) status (18) longterm resident (19) Rectal abnormality Assessment/Plan Thoracentesis evaluation pending Monday Optimize pulmonary hygiene/mobilize as tolerated PRN O2 PRN HHN's Continue abx Monitor electrolytes and renal function Wound care TF's NPO DVT Px: Hep SQ DNAR/DNI, continue to discuss GOC, consider supportive care evaluation Subjective ROS Limited/Unobtainable: Yes Allergies: Coded Allergies: PENICILLINS (Unverified Allergy, Mild, 04/20/18) 04/20/18- Patient has been on pip-tazo for this admission since 04/15/18 as well as previous admission. Pt has Penicillin allergy on profile-unknown reactions. Mirza Gallo and Belgica French aware of allergy and are okay with continuing with pip-tazo. No reactions noted Subjective remains lethargic no events not getting oob no bleeding or fever noted on o2 Objective Last 24 Hour Vital Signs Date Time Temp Pulse Resp B/P (MAP) Pulse Ox O2 Delivery O2 Flow Rate FiO2 04/22/18 09:20 144/52 04/22/18 09:20 65 144/52 04/22/18 08:00 97.8 65 19 144/52 (82) 100 04/22/18 04:02 153/67 04/22/18 04:00 98.8 66 19 153/67 (95) 100 04/22/18 00:00 98.1 73 21 155/46 (82) 100 04/21/18 21:40 151/67 04/21/18 21:00 Nasal Cannula 2.0 04/21/18 20:00 98.0 65 20 151/67 (95) 100 04/21/18 17:03 156/61 04/21/18 16:00 98.8 61 18 156/61 (92) 100 04/21/18 12:00 98.4 62 19 163/57 (92) 100 04/21/18 11:26 166/56 04/21/18 11:26 166/56 Intake and Output 04/21/18 04/22/18 19:00 07:00 Intake Total 920 ml 1040 ml Output Total 550 ml Balance 920 ml 490 ml Intake Free Water 200 ml 320 ml Tube Feeding 720 ml 720 ml Output Urine Total 550 ml # Bowel Movements 3 General Appearance: cachetic Respiratory/Chest: rhonchi Cardiovascular: normal rate, regular rhythm Neurologic/Psychiatric: disoriented, unresponsiveness Current Medications Medications (Trade) Dose Ordered Sig/Gelacio Route PRN Reason Start Time Stop Time Status Last Admin Dose Admin Acetaminophen (Tylenol) 650 mg Q4H PRN RECTAL fever (temp>100.5F) 04/15/18 18:15 05/14/18 22:14 Amlodipine Besylate (Norvasc) 10 mg DAILY GT 04/19/18 09:00 05/17/18 08:59 04/22/18 09:20 Bisacodyl (Dulcolax) 10 mg DAILYPRN PRN RECTAL Constipation 04/15/18 16:15 05/14/18 16:14 Clonidine HCl (Catapres TTS-3) 1 patch QWEEK TDERMAL 04/17/18 16:00 05/17/18 15:59 04/17/18 16:22 Clonidine HCl (Catapres Tab) 0.1 mg Q4H PRN GT bp over 165 syst 04/18/18 15:00 05/16/18 07:59 Dextrose (Dextrose 50%) 25 ml Q30M PRN IV Hypoglycemia 04/15/18 16:30 05/15/18 16:16 Dextrose (Dextrose 50%) 50 ml Q30M PRN IV hypoglycemia 04/15/18 16:30 05/15/18 16:29 Diphenhydramine HCl (Benadryl) 25 mg Q6H PRN GT Itching/Pruritis 04/15/18 16:15 05/14/18 22:14 Docusate Sodium (Colace) 100 mg TID GT 04/16/18 13:00 05/15/18 08:59 04/22/18 09:20 Heparin Sodium (Porcine) (Heparin 5000 units/ml) 5,000 units EVERY 12 HOURS SUBQ 04/15/18 21:00 05/15/18 20:59 04/22/18 09:27 Hydralazine HCl (Apresoline) 50 mg Q6H GT 04/19/18 16:30 05/17/18 16:29 04/22/18 04:02 Insulin Aspart (NovoLOG) EVERY 6 HOURS SUBQ 04/15/18 18:00 05/15/18 07:59 04/22/18 06:03 Insulin Detemir (Levemir) 8 units DAILY SUBQ 04/21/18 10:30 05/21/18 10:29 04/22/18 09:00 Lansoprazole (Prevacid) 30 mg BID GT 04/18/18 18:00 05/18/18 17:59 04/22/18 09:20 Lisinopril (Zestril) 10 mg DAILY ORAL 04/22/18 09:00 05/22/18 08:59 04/22/18 09:20 Morphine Sulfate (Morphine Sulfate) 1 mg Q3H PRN IVP Breakthrough Pain 04/15/18 16:30 04/22/18 16:29 04/22/18 00:48 Morphine Sulfate (Morphine Sulfate) 2 mg Q3H PRN IVP Moderate Pain (Pain Scale 4-6) 04/15/18 16:30 04/22/18 16:29 Ondansetron HCl (Zofran) 4 mg Q6H PRN IVP Nausea & Vomiting 04/15/18 16:15 05/14/18 22:14 Piperacillin Sod/ Tazobactam Sod 2.25 gm/Dextrose 55 ml @ 110 mls/hr Q8HR IVPB 04/15/18 22:00 04/22/18 21:59 04/22/18 05:03 Misty Lamb DO Apr 22, 2018 10:07
[2018-04-22 12:00] VITALS: BP 147/64
--- NOTE | 2018-04-22 13:06 | General Progress Note ---
Assessment/Plan Problem List: (1) CKD (chronic kidney disease) ICD Codes: N18.9 - Chronic kidney disease, unspecified SNOMED: 084174480 (2) Sepsis ICD Codes: A41.9 - Sepsis, unspecified organism SNOMED: 56844238 (3) Seizure disorder ICD Codes: G40.909 - Epilepsy, unspecified, not intractable, without status epilepticus SNOMED: 475555284 (4) Anemia ICD Codes: D64.9 - Anemia, unspecified SNOMED: 156078908 (5) MARK (acute kidney injury) ICD Codes: N17.9 - Acute kidney failure, unspecified SNOMED: 69802070 (6) Mass of right thigh ICD Codes: R22.41 - Localized swelling, mass and lump, right lower limb SNOMED: 546723581 (7) Hematoma ICD Codes: T14.8XXA - Other injury of unspecified body region, initial encounter SNOMED: 998557652 (8) Decubitus ulcer of sacral region, unstageable ICD Codes: L89.150 - Pressure ulcer of sacral region, unstageable SNOMED: 199614627, 130494306 (9) Diabetic nephropathy ICD Codes: E11.21 - Type 2 diabetes mellitus with diabetic nephropathy SNOMED: 05792320, 909431192 (10) Pneumonia ICD Codes: J18.9 - Pneumonia, unspecified organism SNOMED: 614258836 Status: progressing Assessment/Plan hematoma le afebrile vitals holding no acute events wound care multiple decub sepsis arf on top of cri Subjective ROS Limited/Unobtainable: Yes Allergies: Coded Allergies: PENICILLINS (Unverified Allergy, Mild, 04/20/18) 04/20/18- Patient has been on pip-tazo for this admission since 04/15/18 as well as previous admission. Pt has Penicillin allergy on profile-unknown reactions. Mirza Gallo and Belgica French aware of allergy and are okay with continuing with pip-tazo. No reactions noted Objective Last 24 Hour Vital Signs Date Time Temp Pulse Resp B/P (MAP) Pulse Ox O2 Delivery O2 Flow Rate FiO2 04/22/18 12:00 98.1 60 18 147/64 (91) 99 04/22/18 11:28 144/52 04/22/18 09:20 144/52 04/22/18 09:20 65 144/52 04/22/18 09:00 Nasal Cannula 2.0 04/22/18 08:00 97.8 65 19 144/52 (82) 100 04/22/18 04:02 153/67 04/22/18 04:00 98.8 66 19 153/67 (95) 100 04/22/18 00:00 98.1 73 21 155/46 (82) 100 04/21/18 21:40 151/67 04/21/18 21:00 Nasal Cannula 2.0 04/21/18 20:00 98.0 65 20 151/67 (95) 100 04/21/18 17:03 156/61 04/21/18 16:00 98.8 61 18 156/61 (92) 100 Intake and Output 04/21/18 04/22/18 19:00 07:00 Intake Total 920 ml 1040 ml Output Total 550 ml Balance 920 ml 490 ml Intake Free Water 200 ml 320 ml Tube Feeding 720 ml 720 ml Output Urine Total 550 ml # Bowel Movements 3 Laboratory Tests 04/22/18 10:39: C-Reactive Protein, Quantitative 8.7H Height (Feet): 5 Height (Inches): 3.00 Weight (Pounds): 169 General Appearance: confused Respiratory/Chest: lungs clear Abdomen: soft Krzysztof Schneider MD Apr 22, 2018 13:06
[2018-04-22 16:00] VITALS: BP 158/55
--- NOTE | 2018-04-22 16:45 | Cardiac Electrophysiology PN ---
Assessment/Plan Assessment/Plan 1. Bradycardia with heart rate in the 50s and history of paroxysmal atrial fibrillation. 2. Paroxysmal atrial fibrillation, on metoprolol 25 bid 3. Hypertension on Norvasc 10 qd, Hydralazine 25 q6 hr, metoprolol 25 bid, Clonidine patch and p.r.n. clonidine. 4. Dysphagia, status post PEG placement. 5. Large Right femoral AV fistula/ pseudoaneurysm. FU with Dr. Park and Dr. Chisholm. Thrombin injection after DC at [facility] per Dr Chisholm 6. Sacral decubitus ulcer on antibiotic. 7. Anemia, S/P colonoscopy by Dr Post 8. Pleural effusion. Thoracentesis tomorrow DW RN and Dr Xavier Chisholm DW Son at bedside Subjective Subjective Comfortable in NAD. Colonoscopy showed diverticulosis. Son at bedside. Thoracentesis on Monday pending Objective Last 24 Hour Vital Signs Date Time Temp Pulse Resp B/P (MAP) Pulse Ox O2 Delivery O2 Flow Rate FiO2 04/22/18 16:00 98.5 63 18 158/55 (89) 98 04/22/18 13:03 98.1 04/22/18 12:00 98.1 60 18 147/64 (91) 99 04/22/18 11:28 144/52 04/22/18 09:20 144/52 04/22/18 09:20 65 144/52 04/22/18 09:00 Nasal Cannula 2.0 04/22/18 08:00 97.8 65 19 144/52 (82) 100 04/22/18 04:02 153/67 04/22/18 04:00 98.8 66 19 153/67 (95) 100 04/22/18 00:00 98.1 73 21 155/46 (82) 100 04/21/18 21:40 151/67 04/21/18 21:00 Nasal Cannula 2.0 04/21/18 20:00 98.0 65 20 151/67 (95) 100 04/21/18 17:03 156/61 Intake and Output 04/21/18 04/22/18 18:59 06:59 Intake Total 920 ml 1040 ml Output Total 550 ml Balance 920 ml 490 ml Intake Free Water 200 ml 320 ml Tube Feeding 720 ml 720 ml Output Urine Total 550 ml # Bowel Movements 3 Laboratory Tests Test 04/22/18 10:39 C-Reactive Protein, Quantitative 8.7 mg/dL (0.00-0.90) H Objective HEAD AND NECK: No JVD LUNGS: Coarse rhonchi. CARDIOVASCULAR: Regular S1 and S2 with no murmur. ABDOMEN: Status post G-tube. EXTREMITIES: No pitting edema. Right femoral Mass/hematoma Everett Nair MD Apr 22, 2018 16:45
[2018-04-22 20:00] VITALS: BP 148/55
--- NOTE | 2018-04-22 22:40 | General Progress Note ---
Assessment/Plan Problem List: (1) Encephalopathy due to metabolic factor or toxin SNOMED: 521697566 (2) Major depression ICD Codes: F32.9 - Major depressive disorder, single episode, unspecified SNOMED: 705595868 Status: stable Assessment/Plan cont current meds provided ro/st Subjective Date patient seen: Apr 21, 2018 Neurologic/Psychiatric: Reports: anxiety, depressed Allergies: Coded Allergies: PENICILLINS (Unverified Allergy, Mild, 04/20/18) 04/20/18- Patient has been on pip-tazo for this admission since 04/15/18 as well as previous admission. Pt has Penicillin allergy on profile-unknown reactions. Mirza Gallo and Belgica Padillaan aware of allergy and are okay with continuing with pip-tazo. No reactions noted Objective Last 24 Hour Vital Signs Date Time Temp Pulse Resp B/P (MAP) Pulse Ox O2 Delivery O2 Flow Rate FiO2 04/22/18 21:39 148/55 04/22/18 21:00 Nasal Cannula 2.0 04/22/18 20:00 98.8 71 20 148/55 (86) 100 04/22/18 17:24 158/55 04/22/18 16:00 98.5 63 18 158/55 (89) 98 04/22/18 13:03 98.1 04/22/18 12:00 98.1 60 18 147/64 (91) 99 04/22/18 11:28 144/52 04/22/18 09:20 144/52 04/22/18 09:20 65 144/52 04/22/18 09:00 Nasal Cannula 2.0 04/22/18 08:00 97.8 65 19 144/52 (82) 100 04/22/18 04:02 153/67 04/22/18 04:00 98.8 66 19 153/67 (95) 100 04/22/18 00:00 98.1 73 21 155/46 (82) 100 Intake and Output 04/21/18 04/22/18 19:00 07:00 Intake Total 920 ml 1040 ml Output Total 550 ml Balance 920 ml 490 ml Intake Free Water 200 ml 320 ml Tube Feeding 720 ml 720 ml Output Urine Total 550 ml # Bowel Movements 3 Laboratory Tests 04/22/18 10:39: C-Reactive Protein, Quantitative 8.7H Height (Feet): 5 Height (Inches): 3.00 Weight (Pounds): 169 General Appearance: no apparent distress, alert, agitated China Kidd MD Apr 22, 2018 22:40
--- NOTE | 2018-04-22 22:41 | General Progress Note ---
Assessment/Plan Problem List: (1) Encephalopathy due to metabolic factor or toxin SNOMED: 391019882 (2) Major depression ICD Codes: F32.9 - Major depressive disorder, single episode, unspecified SNOMED: 498800005 Status: stable, progressing Assessment/Plan cont current meds provided ro/st Subjective Date patient seen: Apr 22, 2018 Neurologic/Psychiatric: Reports: anxiety, depressed Allergies: Coded Allergies: PENICILLINS (Unverified Allergy, Mild, 04/20/18) 04/20/18- Patient has been on pip-tazo for this admission since 04/15/18 as well as previous admission. Pt has Penicillin allergy on profile-unknown reactions. Mirza Gallo and Belgica Padillaan aware of allergy and are okay with continuing with pip-tazo. No reactions noted Objective Last 24 Hour Vital Signs Date Time Temp Pulse Resp B/P (MAP) Pulse Ox O2 Delivery O2 Flow Rate FiO2 04/22/18 21:39 148/55 04/22/18 21:00 Nasal Cannula 2.0 04/22/18 20:00 98.8 71 20 148/55 (86) 100 04/22/18 17:24 158/55 04/22/18 16:00 98.5 63 18 158/55 (89) 98 04/22/18 13:03 98.1 04/22/18 12:00 98.1 60 18 147/64 (91) 99 04/22/18 11:28 144/52 04/22/18 09:20 144/52 04/22/18 09:20 65 144/52 04/22/18 09:00 Nasal Cannula 2.0 04/22/18 08:00 97.8 65 19 144/52 (82) 100 04/22/18 04:02 153/67 04/22/18 04:00 98.8 66 19 153/67 (95) 100 04/22/18 00:00 98.1 73 21 155/46 (82) 100 Intake and Output 04/21/18 04/22/18 19:00 07:00 Intake Total 920 ml 1040 ml Output Total 550 ml Balance 920 ml 490 ml Intake Free Water 200 ml 320 ml Tube Feeding 720 ml 720 ml Output Urine Total 550 ml # Bowel Movements 3 Laboratory Tests 04/22/18 10:39: C-Reactive Protein, Quantitative 8.7H Height (Feet): 5 Height (Inches): 3.00 Weight (Pounds): 169 General Appearance: no apparent distress, alert Neurologic: responsive, depressed affect China Kidd MD Apr 22, 2018 22:41
[2018-04-23] VITALS (8 sets, daily range): BP systolic 131–169; BP diastolic 52–95
[2018-04-23] MEDS: HydrALAZINE 50mg tab GT SCH ×4 (04:41→21:39)
[2018-04-23] MEDS: NovoLOG Insulin Flexpen SUBQ SCH ×4 (06:00→23:30)
[2018-04-23 06:18] LABS: BASOPHILS % (AUTO) 0.9 % (0.0-2.0); EOSINOPHILS % (AUTO) 4.1 % (0.0-3.0); HEMATOCRIT 27.8 % (37.0-47.0); HEMOGLOBIN 8.7 G/DL (12.0-16.0); LYMPHOCYTES % (AUTO) 15.2 % (20.0-45.0); MEAN CORPUSCULAR VOLUME 90 FL (80-99); MONOCYTES % (AUTO) 9.6 % (1.0-10.0); NEUTROPHILS % (AUTO) 70.2 % (45.0-75.0); PLATELET COUNT 178 K/UL (150-450); RED BLOOD COUNT 3.08 M/UL (4.20-5.40); WHITE BLOOD COUNT 9.3 K/UL (4.8-10.8)
[2018-04-23 07:01] LABS: ALANINE AMINOTRANSFERASE 19 U/L (12-78); ALBUMIN 2.3 G/DL (3.4-5.0); ALBUMIN/GLOBULIN RATIO 0.5 (1.0-2.7); ALKALINE PHOSPHATASE 140 U/L (46-116); ANION GAP 5 mmol/L (5-15); ASPARTATE AMINO TRANSFERASE 16 U/L (15-37); BILIRUBIN,TOTAL 0.3 MG/DL (0.2-1.0); BLOOD UREA NITROGEN 56 mg/dL (7-18); CALCIUM 8.8 MG/DL (8.5-10.1); CARBON DIOXIDE 26 MMOL/L (21-32); CHLORIDE 109 MMOL/L (98-107); CREATININE 2.2 MG/DL (0.55-1.30); PHOSPHORUS 5.7 MG/DL (2.5-4.9); SODIUM 140 MMOL/L (136-145)
[2018-04-23 07:07] LABS: POTASSIUM 6.9 MMOL/L (3.5-5.1)
--- NOTE | 2018-04-23 07:13 | General Progress Note ---
Assessment/Plan Assessment/Plan # Anemia of chronic disease -- baseline appears to be 10-11 reviewed labs from 2013 --> at this time decreased, anemia panel has been ordered on prior admission and c/w acd --> transfuse as needed, hgb goal >7 --> no evidence of hemolysis noted --> anemia panel reviewed and is negative as well # Leukocytosis likely related to septic shock --> WBC has improved --> on abx and ivf --> appreciate ID recs and workup --> surg recs reviewed # Hematoma of the right groin -- 5.1 x 6.6 x 20 cm hyperattenuating right proximal thigh mass. 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 --> On heparin 5k units. --> outpatient potential thrombin injection per Dr. Olguin # Abnormal LFTs --> likely shock liver from overt sepsis. --> trend labs # Decubitus ulcer of sacral region, unstageable, 5cm x 4cm unstagable sacral decubitus ulcer, no drainage, mild periedge edema/erythema, soft, no odor present upon admission. will be cared for during hospital sta --> surg eval # Severe sepsis --> on abx as per ID # Respiratory failure withc coarse rhonchi --> thora evaluation potentially 04/23 --> as per pulm Greatly appreciate consultation! Subjective Constitutional: Denies: no symptoms, chills, diaphoresis, fever, malaise, weakness, other HEENT: Denies: no symptoms, eye pain, blurred vision, tearing, double vision, ear pain, ear discharge, nose pain, nose congestion, throat pain, throat swelling, mouth pain, mouth swelling, other Cardiovascular: Denies: no symptoms, chest pain, edema, irregular heart rate, lightheadedness, palpitations, syncope, other Respiratory: Denies: no symptoms, cough, orthopnea, shortness of breath, SOB with excertion, SOB at rest, sputum, stridor, wheezing, other Gastrointestinal/Abdominal: Denies: no symptoms, abdomen distended, abdominal pain, black stools, tarry stools, blood in stool, constipated, diarrhea, difficulty swallowing, nausea, poor appetite, poor fluid intake, rectal bleeding , vomiting, other Genitourinary: Denies: no symptoms, burning, discharge, frequency, flank pain, hematuria, incontinence, pain, urgency, other Neurologic/Psychiatric: Denies: no symptoms, anxiety, depressed, emotional problems, headache, numbness, paresthesia, pre-existing deficit, seizure, tingling, tremors, weakness, other Endocrine: Denies: no symptoms, excessive sweating, flushing, intolerance to cold, intolerance to heat, increased hunger, increased thirst, increased urine, unexplained weight gain, unexplained weight loss, other Allergies: Coded Allergies: PENICILLINS (Unverified Allergy, Mild, 04/20/18) 04/20/18- Patient has been on pip-tazo for this admission since 04/15/18 as well as previous admission. Pt has Penicillin allergy on profile-unknown reactions. Mirza Galol and Belgica French aware of allergy and are okay with continuing with pip-tazo. No reactions noted Subjective Pt nonverbal. No acute events. H/H stable. Not bleeding. Objective Last 24 Hour Vital Signs Date Time Temp Pulse Resp B/P (MAP) Pulse Ox O2 Delivery O2 Flow Rate FiO2 04/23/18 04:41 156/63 04/23/18 04:00 97.9 71 20 156/63 (94) 99 04/23/18 00:00 98.7 77 20 142/69 (93) 100 04/22/18 21:39 148/55 04/22/18 21:00 Nasal Cannula 2.0 04/22/18 20:00 98.8 71 20 148/55 (86) 100 04/22/18 17:24 158/55 04/22/18 16:00 98.5 63 18 158/55 (89) 98 04/22/18 13:03 98.1 04/22/18 12:00 98.1 60 18 147/64 (91) 99 04/22/18 11:28 144/52 04/22/18 09:20 144/52 04/22/18 09:20 65 144/52 04/22/18 09:00 Nasal Cannula 2.0 04/22/18 08:00 97.8 65 19 144/52 (82) 100 Intake and Output 04/22/18 04/23/18 19:00 07:00 Intake Total 920 ml 460 ml Output Total 700 ml Balance 920 ml -240 ml Intake Free Water 200 ml 160 ml Tube Feeding 720 ml 300 ml Output Urine Total 700 ml # Bowel Movements 1 3 Laboratory Tests 04/22/18 10:39: C-Reactive Protein, Quantitative 8.7H 04/23/18 04:00: White Blood Count 9.3, Red Blood Count 3.08L, Hemoglobin 8.7L, Hematocrit 27.8L , Mean Corpuscular Volume 90, Mean Corpuscular Hemoglobin 28.2, Mean Corpuscular Hemoglobin Concent 31.2L, Red Cell Distribution Width 14.0, Platelet Count 178, Mean Platelet Volume 8.7, Neutrophils (%) (Auto) 70.2, Lymphocytes (%) (Auto) 15.2L, Monocytes (%) (Auto) 9.6, Eosinophils (%) (Auto) 4.1H, Basophils (%) (Auto) 0.9, Sodium Level 140, Potassium Level 6.9*H, Chloride Level 109H, Carbon Dioxide Level 26, Anion Gap 5, Blood Urea Nitrogen 56H, Creatinine 2.2H, Estimat Glomerular Filtration Rate , Glucose Level 122H, Uric Acid 4.3, Calcium Level 8.8, Phosphorus Level 5.7H, Magnesium Level 3.2H, Total Bilirubin 0.3, Aspartate Amino Transf (AST/SGOT) 16, Alanine Aminotransferase (ALT/SGPT) 19, Alkaline Phosphatase 140H, Total Protein 7.3, Albumin 2.3L, Globulin 5.0, Albumin/Globulin Ratio 0.5L Height (Feet): 5 Height (Inches): 3.00 Weight (Pounds): 169 General Appearance: no apparent distress Objective PHYSICAL EXAMINATION: VITAL SIGNS: Have been reviewed. HEAD AND NECK: Shows no jugular venous distention. LUNGS: Coarse rhonchi. CARDIOVASCULAR: Regular S1 and S2 with no gallop. ABDOMEN: Status post G-tube. EXTREMITIES: No pitting edema. Aleksandr Kern MD Apr 23, 2018 07:13
[2018-04-23] MEDS ORDERED: Sodium Polystyrene Sulfonate 15gm Powder GT SCH ×2 (08:00→16:00)
[2018-04-23] MEDS: Heparin 5000 units/ml inj SUBQ SCH ×2 (08:55→21:41)
[2018-04-23 09:13] LABS: INR 0.9 (0.9-1.1)
[2018-04-23] MEDS: Docusate 100mg/10ml Liq GT SCH ×3 (10:16→18:29)
[2018-04-23] MEDS: Levemir Flexpen SUBQ SCH (10:21)
--- NOTE | 2018-04-23 10:53 | Nephrology Progress Note ---
Assessment/Plan Problem List: (1) Hypertension (2) MARK (acute kidney injury) (3) CKD (chronic kidney disease) (4) Diabetic nephropathy Assessment High K today acute on chronic renal failure: Dehydration HTN DM / Proteinuria / HypoAlbuminemia Encephalopathy due to metabolic factor or toxin Hypoglycemia Anemia Decubitus ulcer of sacral region, unstageable PEG (percutaneous endoscopic gastrostomy) status Plan DC Lisinopril Kayexelate IV Bollous BP meds- adjusted Monitor BS- Anemia conn avoid Nephrotoxics Monitor renal parameters per orders Subjective ROS Limited/Unobtainable: No Constitutional: Reports: malaise Objective Objective Last 24 Hour Vital Signs Date Time Temp Pulse Resp B/P (MAP) Pulse Ox O2 Delivery O2 Flow Rate FiO2 04/23/18 10:16 68 162/54 04/23/18 10:08 68 162/54 (90) 04/23/18 04:41 156/63 04/23/18 04:00 97.9 71 20 156/63 (94) 99 04/23/18 00:00 98.7 77 20 142/69 (93) 100 04/22/18 21:39 148/55 04/22/18 21:00 Nasal Cannula 2.0 04/22/18 20:00 98.8 71 20 148/55 (86) 100 04/22/18 17:24 158/55 04/22/18 16:00 98.5 63 18 158/55 (89) 98 04/22/18 13:03 98.1 04/22/18 12:00 98.1 60 18 147/64 (91) 99 04/22/18 11:28 144/52 Intake and Output 04/22/18 04/23/18 19:00 07:00 Intake Total 920 ml 460 ml Output Total 700 ml Balance 920 ml -240 ml Intake Free Water 200 ml 160 ml Tube Feeding 720 ml 300 ml Output Urine Total 700 ml # Bowel Movements 1 3 Laboratory Tests 04/23/18 04:00: White Blood Count 9.3, Red Blood Count 3.08L, Hemoglobin 8.7L, Hematocrit 27.8L , Mean Corpuscular Volume 90, Mean Corpuscular Hemoglobin 28.2, Mean Corpuscular Hemoglobin Concent 31.2L, Red Cell Distribution Width 14.0, Platelet Count 178, Mean Platelet Volume 8.7, Neutrophils (%) (Auto) 70.2, Lymphocytes (%) (Auto) 15.2L, Monocytes (%) (Auto) 9.6, Eosinophils (%) (Auto) 4.1H, Basophils (%) (Auto) 0.9, Sodium Level 140, Potassium Level 6.9*H, Chloride Level 109H, Carbon Dioxide Level 26, Anion Gap 5, Blood Urea Nitrogen 56H, Creatinine 2.2H, Estimat Glomerular Filtration Rate , Glucose Level 122H, Uric Acid 4.3, Calcium Level 8.8, Phosphorus Level 5.7H, Magnesium Level 3.2H, Total Bilirubin 0.3, Aspartate Amino Transf (AST/SGOT) 16, Alanine Aminotransferase (ALT/SGPT) 19, Alkaline Phosphatase 140H, Total Protein 7.3, Albumin 2.3L, Globulin 5.0, Albumin/Globulin Ratio 0.5L 04/23/18 08:40: Prothrombin Time 10.0, Prothromb Time International Ratio 0.9, Activated Partial Thromboplast Time 30 Height (Feet): 5 Height (Inches): 3.00 Weight (Pounds): 169 General Appearance: no apparent distress Objective no change Phil Ortiz MD Apr 23, 2018 10:52
--- NOTE | 2018-04-23 12:01 | GI Progress Note ---
Assessment/Plan Problems: (1) Anemia ICD Codes: D64.9 - Anemia, unspecified SNOMED: 953390199 (2) Diabetic nephropathy ICD Codes: E11.21 - Type 2 diabetes mellitus with diabetic nephropathy SNOMED: 11234197, 567058291 (3) Hypoglycemia ICD Codes: E16.2 - Hypoglycemia, unspecified SNOMED: 817574075 (4) Mass of right thigh ICD Codes: R22.41 - Localized swelling, mass and lump, right lower limb SNOMED: 531594717 (5) PEG (percutaneous endoscopic gastrostomy) status ICD Codes: Z93.1 - Gastrostomy status SNOMED: 465426551, 721118565 Status: unchanged Status Narrative Discussed with Dr. Post. Assessment/Plan s/p colonoscopy>>> no rectal mass seen OB stool negative GTFs per RD to goal fu labs prn transfusions ppi dc planning per primary team The patient was seen and examined at bedside and all new and available data was reviewed in the patients chart. I agree with the above findings, impression and plan. (Patient seen earlier today. Signature stamp does not reflect patient encounter time.). - Ruben Post MD Subjective Subjective limited Objective Last 24 Hour Vital Signs Date Time Temp Pulse Resp B/P (MAP) Pulse Ox O2 Delivery O2 Flow Rate FiO2 04/23/18 11:45 157/56 04/23/18 10:16 68 162/54 04/23/18 10:08 68 162/54 (90) 04/23/18 04:41 156/63 04/23/18 04:00 97.9 71 20 156/63 (94) 99 04/23/18 00:00 98.7 77 20 142/69 (93) 100 04/22/18 21:39 148/55 04/22/18 21:00 Nasal Cannula 2.0 04/22/18 20:00 98.8 71 20 148/55 (86) 100 04/22/18 17:24 158/55 04/22/18 16:00 98.5 63 18 158/55 (89) 98 04/22/18 13:03 98.1 Intake and Output 04/22/18 04/23/18 19:00 07:00 Intake Total 920 ml 460 ml Output Total 700 ml Balance 920 ml -240 ml Intake Free Water 200 ml 160 ml Tube Feeding 720 ml 300 ml Output Urine Total 700 ml # Bowel Movements 1 3 Laboratory Tests Test 04/23/18 04:00 04/23/18 08:40 04/23/18 11:20 White Blood Count 9.3 K/UL (4.8-10.8) Red Blood Count 3.08 M/UL (4.20-5.40) L Hemoglobin 8.7 G/DL (12.0-16.0) L Hematocrit 27.8 % (37.0-47.0) L Mean Corpuscular Volume 90 FL (80-99) Mean Corpuscular Hemoglobin 28.2 PG (27.0-31.0) Mean Corpuscular Hemoglobin Concent 31.2 G/DL (32.0-36.0) L Red Cell Distribution Width 14.0 % (11.6-14.8) Platelet Count 178 K/UL (150-450) Mean Platelet Volume 8.7 FL (6.5-10.1) Neutrophils (%) (Auto) 70.2 % (45.0-75.0) Lymphocytes (%) (Auto) 15.2 % (20.0-45.0) L Monocytes (%) (Auto) 9.6 % (1.0-10.0) Eosinophils (%) (Auto) 4.1 % (0.0-3.0) H Basophils (%) (Auto) 0.9 % (0.0-2.0) Sodium Level 140 MMOL/L (136-145) Pending Potassium Level 6.9 MMOL/L (3.5-5.1) *H Pending Chloride Level 109 MMOL/L (98-107) H Pending Carbon Dioxide Level 26 MMOL/L (21-32) Pending Anion Gap 5 mmol/L (5-15) Blood Urea Nitrogen 56 mg/dL (7-18) H Pending Creatinine 2.2 MG/DL (0.55-1.30) H Pending Estimat Glomerular Filtration Rate mL/min (>60) Pending Glucose Level 122 MG/DL (74-106) H Pending Uric Acid 4.3 MG/DL (2.6-7.2) Calcium Level 8.8 MG/DL (8.5-10.1) Pending Phosphorus Level 5.7 MG/DL (2.5-4.9) H Magnesium Level 3.2 MG/DL (1.8-2.4) H Total Bilirubin 0.3 MG/DL (0.2-1.0) Aspartate Amino Transf (AST/SGOT) 16 U/L (15-37) Alanine Aminotransferase (ALT/SGPT) 19 U/L (12-78) Alkaline Phosphatase 140 U/L (46-116) H Total Protein 7.3 G/DL (6.4-8.2) Albumin 2.3 G/DL (3.4-5.0) L Globulin 5.0 g/dL Albumin/Globulin Ratio 0.5 (1.0-2.7) L Prothrombin Time 10.0 SEC (9.30-11.50) Prothromb Time International Ratio 0.9 (0.9-1.1) Activated Partial Thromboplast Time 30 SEC (23-33) Height (Feet): 5 Height (Inches): 3.00 Weight (Pounds): 169 General Appearance: WD/WN, no apparent distress, alert, thin Cardiovascular: normal rate Respiratory/Chest: normal breath sounds, no respiratory distress Abdominal Exam: normal bowel sounds, non tender, soft Extremities: non-tender Loraine Wick NP Apr 23, 2018 12:01
[2018-04-23 12:09] LABS: ANION GAP 6 mmol/L (5-15); BLOOD UREA NITROGEN 52 mg/dL (7-18); CALCIUM 8.5 MG/DL (8.5-10.1); CARBON DIOXIDE 25 MMOL/L (21-32); CHLORIDE 107 MMOL/L (98-107); CREATININE 2.2 MG/DL (0.55-1.30); POTASSIUM 6.4 MMOL/L (3.5-5.1); SODIUM 138 MMOL/L (136-145)
--- NOTE | 2018-04-23 12:11 | Infectious Diseases Prog Note ---
Assessment/Plan Assessment/Plan A: 1. Sepsis/ Systemic inflammatory response syndrome with hypoglycemia, 2. pneumonia. treated 3. Diabetes mellitus. 4. Chronic kidney disease. 5. Anemia. 6. Seizure disorder. 7. 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 Diverticulosis & internal hemorrhoids 9. Pleural effusions P: Observe off of antibiotic waiting for thoracentesis Subjective ROS Limited/Unobtainable: Yes Allergies: Coded Allergies: PENICILLINS (Unverified Allergy, Mild, 04/20/18) 04/20/18- Patient has been on pip-tazo for this admission since 04/15/18 as well as previous admission. Pt has Penicillin allergy on profile-unknown reactions. Mirza Gallo and Belgica Padillaan aware of allergy and are okay with continuing with pip-tazo. No reactions noted Objective Vital Signs Last 24 Hour Vital Signs Date Time Temp Pulse Resp B/P (MAP) Pulse Ox O2 Delivery O2 Flow Rate FiO2 04/23/18 11:45 157/56 04/23/18 10:16 68 162/54 04/23/18 10:08 68 162/54 (90) 04/23/18 04:41 156/63 04/23/18 04:00 97.9 71 20 156/63 (94) 99 04/23/18 00:00 98.7 77 20 142/69 (93) 100 04/22/18 21:39 148/55 04/22/18 21:00 Nasal Cannula 2.0 04/22/18 20:00 98.8 71 20 148/55 (86) 100 04/22/18 17:24 158/55 04/22/18 16:00 98.5 63 18 158/55 (89) 98 04/22/18 13:03 98.1 Height (Feet): 5 Height (Inches): 3.00 Weight (Pounds): 169 General Appearance: no acute distress HEENT: mucous membranes moist Respiratory/Chest: lungs clear Cardiovascular: normal rate Abdomen: soft, non tender, other - GT feeding Skin: ulcers Neurologic/Psychiatric: other - awake Laboratory Tests Test 04/23/18 04:00 04/23/18 08:40 04/23/18 11:20 White Blood Count 9.3 K/UL (4.8-10.8) Red Blood Count 3.08 M/UL (4.20-5.40) L Hemoglobin 8.7 G/DL (12.0-16.0) L Hematocrit 27.8 % (37.0-47.0) L Mean Corpuscular Volume 90 FL (80-99) Mean Corpuscular Hemoglobin 28.2 PG (27.0-31.0) Mean Corpuscular Hemoglobin Concent 31.2 G/DL (32.0-36.0) L Red Cell Distribution Width 14.0 % (11.6-14.8) Platelet Count 178 K/UL (150-450) Mean Platelet Volume 8.7 FL (6.5-10.1) Neutrophils (%) (Auto) 70.2 % (45.0-75.0) Lymphocytes (%) (Auto) 15.2 % (20.0-45.0) L Monocytes (%) (Auto) 9.6 % (1.0-10.0) Eosinophils (%) (Auto) 4.1 % (0.0-3.0) H Basophils (%) (Auto) 0.9 % (0.0-2.0) Sodium Level 140 MMOL/L (136-145) Pending Potassium Level 6.9 MMOL/L (3.5-5.1) *H Pending Chloride Level 109 MMOL/L (98-107) H Pending Carbon Dioxide Level 26 MMOL/L (21-32) Pending Anion Gap 5 mmol/L (5-15) Blood Urea Nitrogen 56 mg/dL (7-18) H Pending Creatinine 2.2 MG/DL (0.55-1.30) H Pending Estimat Glomerular Filtration Rate mL/min (>60) Pending Glucose Level 122 MG/DL (74-106) H Pending Uric Acid 4.3 MG/DL (2.6-7.2) Calcium Level 8.8 MG/DL (8.5-10.1) Pending Phosphorus Level 5.7 MG/DL (2.5-4.9) H Magnesium Level 3.2 MG/DL (1.8-2.4) H Total Bilirubin 0.3 MG/DL (0.2-1.0) Aspartate Amino Transf (AST/SGOT) 16 U/L (15-37) Alanine Aminotransferase (ALT/SGPT) 19 U/L (12-78) Alkaline Phosphatase 140 U/L (46-116) H Total Protein 7.3 G/DL (6.4-8.2) Albumin 2.3 G/DL (3.4-5.0) L Globulin 5.0 g/dL Albumin/Globulin Ratio 0.5 (1.0-2.7) L Prothrombin Time 10.0 SEC (9.30-11.50) Prothromb Time International Ratio 0.9 (0.9-1.1) Activated Partial Thromboplast Time 30 SEC (23-33) Current Medications Medications (Trade) Dose Ordered Sig/Gelacio Route PRN Reason Start Time Stop Time Status Last Admin Dose Admin Acetaminophen (Tylenol) 650 mg Q4H PRN RECTAL fever (temp>100.5F) 04/15/18 18:15 05/14/18 22:14 Amlodipine Besylate (Norvasc) 10 mg DAILY GT 04/19/18 09:00 05/17/18 08:59 04/23/18 10:16 Bisacodyl (Dulcolax) 10 mg DAILYPRN PRN RECTAL Constipation 04/15/18 16:15 05/14/18 16:14 Clonidine HCl (Catapres TTS-3) 1 patch QWEEK TDERMAL 04/17/18 16:00 05/17/18 15:59 04/17/18 16:22 Clonidine HCl (Catapres Tab) 0.1 mg Q4H PRN GT bp over 165 syst 04/18/18 15:00 05/16/18 07:59 Dextrose (Dextrose 50%) 25 ml Q30M PRN IV Hypoglycemia 04/15/18 16:30 05/15/18 16:16 Dextrose (Dextrose 50%) 50 ml Q30M PRN IV hypoglycemia 04/15/18 16:30 05/15/18 16:29 Diphenhydramine HCl (Benadryl) 25 mg Q6H PRN GT Itching/Pruritis 04/15/18 16:15 05/14/18 22:14 04/22/18 21:39 Docusate Sodium (Colace) 100 mg TID GT 04/16/18 13:00 05/15/18 08:59 04/23/18 10:16 Heparin Sodium (Porcine) (Heparin 5000 units/ml) 5,000 units EVERY 12 HOURS SUBQ 04/15/18 21:00 05/15/18 20:59 04/22/18 09:27 Hydralazine HCl (Apresoline) 50 mg Q6H GT 04/19/18 16:30 05/17/18 16:29 04/23/18 11:45 Insulin Aspart (NovoLOG) EVERY 6 HOURS SUBQ 04/15/18 18:00 05/15/18 07:59 04/22/18 23:45 Insulin Detemir (Levemir) 8 units DAILY SUBQ 04/21/18 10:30 05/21/18 10:29 04/23/18 10:21 Lansoprazole (Prevacid) 30 mg BID GT 04/18/18 18:00 05/18/18 17:59 04/23/18 10:16 Ondansetron HCl (Zofran) 4 mg Q6H PRN IVP Nausea & Vomiting 04/15/18 16:15 05/14/18 22:14 Wilder French MD Apr 23, 2018 12:11
--- NOTE | 2018-04-23 14:11 | General Progress Note ---
Assessment/Plan Problem List: (1) Encephalopathy due to metabolic factor or toxin SNOMED: 922776547 (2) Major depression ICD Codes: F32.9 - Major depressive disorder, single episode, unspecified SNOMED: 502894391 Status: stable, progressing Assessment/Plan cont current meds provided ro/st Subjective Date patient seen: Apr 23, 2018 Neurologic/Psychiatric: Reports: anxiety, depressed, emotional problems Allergies: Coded Allergies: PENICILLINS (Unverified Allergy, Mild, 04/20/18) 04/20/18- Patient has been on pip-tazo for this admission since 04/15/18 as well as previous admission. Pt has Penicillin allergy on profile-unknown reactions. Mirza Gallo and Belgica Padillaan aware of allergy and are okay with continuing with pip-tazo. No reactions noted Objective Last 24 Hour Vital Signs Date Time Temp Pulse Resp B/P (MAP) Pulse Ox O2 Delivery O2 Flow Rate FiO2 04/23/18 12:00 98.1 67 18 157/56 (89) 99 04/23/18 11:45 157/56 04/23/18 10:16 68 162/54 04/23/18 10:08 68 162/54 (90) 04/23/18 09:00 Nasal Cannula 2.0 04/23/18 08:00 97.6 72 16 131/77 (95) 100 04/23/18 04:41 156/63 04/23/18 04:00 97.9 71 20 156/63 (94) 99 04/23/18 00:00 98.7 77 20 142/69 (93) 100 04/22/18 21:39 148/55 04/22/18 21:00 Nasal Cannula 2.0 04/22/18 20:00 98.8 71 20 148/55 (86) 100 04/22/18 17:24 158/55 04/22/18 16:00 98.5 63 18 158/55 (89) 98 Intake and Output 04/22/18 04/23/18 19:00 07:00 Intake Total 920 ml 460 ml Output Total 700 ml Balance 920 ml -240 ml Intake Free Water 200 ml 160 ml Tube Feeding 720 ml 300 ml Output Urine Total 700 ml # Bowel Movements 1 3 Laboratory Tests 04/23/18 04:00: White Blood Count 9.3, Red Blood Count 3.08L, Hemoglobin 8.7L, Hematocrit 27.8L , Mean Corpuscular Volume 90, Mean Corpuscular Hemoglobin 28.2, Mean Corpuscular Hemoglobin Concent 31.2L, Red Cell Distribution Width 14.0, Platelet Count 178, Mean Platelet Volume 8.7, Neutrophils (%) (Auto) 70.2, Lymphocytes (%) (Auto) 15.2L, Monocytes (%) (Auto) 9.6, Eosinophils (%) (Auto) 4.1H, Basophils (%) (Auto) 0.9, Sodium Level 140, Potassium Level 6.9*H, Chloride Level 109H, Carbon Dioxide Level 26, Anion Gap 5, Blood Urea Nitrogen 56H, Creatinine 2.2H, Estimat Glomerular Filtration Rate , Glucose Level 122H, Uric Acid 4.3, Calcium Level 8.8, Phosphorus Level 5.7H, Magnesium Level 3.2H, Total Bilirubin 0.3, Aspartate Amino Transf (AST/SGOT) 16, Alanine Aminotransferase (ALT/SGPT) 19, Alkaline Phosphatase 140H, Total Protein 7.3, Albumin 2.3L, Globulin 5.0, Albumin/Globulin Ratio 0.5L 04/23/18 08:40: Prothrombin Time 10.0, Prothromb Time International Ratio 0.9, Activated Partial Thromboplast Time 30 04/23/18 11:20: Sodium Level 138, Potassium Level 6.4*H, Chloride Level 107, Carbon Dioxide Level 25, Anion Gap 6, Blood Urea Nitrogen 52H, Creatinine 2.2H, Estimat Glomerular Filtration Rate , Glucose Level 190H, Calcium Level 8.5 Height (Feet): 5 Height (Inches): 3.00 Weight (Pounds): 169 General Appearance: no apparent distress, alert China Kidd MD Apr 23, 2018 14:11
--- NOTE | 2018-04-23 15:22 | General Surgery Progress Note ---
General Surgery-Progress Note Subjective Additional Comments no acute events. stable. hematoma stable Objective Last 24 Hour Vital Signs Date Time Temp Pulse Resp B/P (MAP) Pulse Ox O2 Delivery O2 Flow Rate FiO2 04/23/18 12:00 98.1 67 18 157/56 (89) 99 04/23/18 11:45 157/56 04/23/18 10:16 68 162/54 04/23/18 10:08 68 162/54 (90) 04/23/18 09:00 Nasal Cannula 2.0 04/23/18 08:00 97.6 72 16 131/77 (95) 100 04/23/18 04:41 156/63 04/23/18 04:00 97.9 71 20 156/63 (94) 99 04/23/18 00:00 98.7 77 20 142/69 (93) 100 04/22/18 21:39 148/55 04/22/18 21:00 Nasal Cannula 2.0 04/22/18 20:00 98.8 71 20 148/55 (86) 100 04/22/18 17:24 158/55 04/22/18 16:00 98.5 63 18 158/55 (89) 98 I&O Intake and Output 04/22/18 04/23/18 19:00 07:00 Intake Total 920 ml 460 ml Output Total 700 ml Balance 920 ml -240 ml Intake Free Water 200 ml 160 ml Tube Feeding 720 ml 300 ml Output Urine Total 700 ml # Bowel Movements 1 3 Dressing: dry Wound: clean, other Drains: other Cardiovascular: RSR Respiratory: decreased breath sounds Abdomen: soft, flat, present bowel sounds Extremities: other Laboratory Tests Test 04/23/18 04:00 04/23/18 08:40 04/23/18 11:20 White Blood Count 9.3 K/UL (4.8-10.8) Red Blood Count 3.08 M/UL (4.20-5.40) L Hemoglobin 8.7 G/DL (12.0-16.0) L Hematocrit 27.8 % (37.0-47.0) L Mean Corpuscular Volume 90 FL (80-99) Mean Corpuscular Hemoglobin 28.2 PG (27.0-31.0) Mean Corpuscular Hemoglobin Concent 31.2 G/DL (32.0-36.0) L Red Cell Distribution Width 14.0 % (11.6-14.8) Platelet Count 178 K/UL (150-450) Mean Platelet Volume 8.7 FL (6.5-10.1) Neutrophils (%) (Auto) 70.2 % (45.0-75.0) Lymphocytes (%) (Auto) 15.2 % (20.0-45.0) L Monocytes (%) (Auto) 9.6 % (1.0-10.0) Eosinophils (%) (Auto) 4.1 % (0.0-3.0) H Basophils (%) (Auto) 0.9 % (0.0-2.0) Sodium Level 140 MMOL/L (136-145) 138 MMOL/L (136-145) Potassium Level 6.9 MMOL/L (3.5-5.1) *H 6.4 MMOL/L (3.5-5.1) *H Chloride Level 109 MMOL/L (98-107) H 107 MMOL/L (98-107) Carbon Dioxide Level 26 MMOL/L (21-32) 25 MMOL/L (21-32) Anion Gap 5 mmol/L (5-15) 6 mmol/L (5-15) Blood Urea Nitrogen 56 mg/dL (7-18) H 52 mg/dL (7-18) H Creatinine 2.2 MG/DL (0.55-1.30) H 2.2 MG/DL (0.55-1.30) H Estimat Glomerular Filtration Rate mL/min (>60) mL/min (>60) Glucose Level 122 MG/DL (74-106) H 190 MG/DL (74-106) H Uric Acid 4.3 MG/DL (2.6-7.2) Calcium Level 8.8 MG/DL (8.5-10.1) 8.5 MG/DL (8.5-10.1) Phosphorus Level 5.7 MG/DL (2.5-4.9) H Magnesium Level 3.2 MG/DL (1.8-2.4) H Total Bilirubin 0.3 MG/DL (0.2-1.0) Aspartate Amino Transf (AST/SGOT) 16 U/L (15-37) Alanine Aminotransferase (ALT/SGPT) 19 U/L (12-78) Alkaline Phosphatase 140 U/L (46-116) H Total Protein 7.3 G/DL (6.4-8.2) Albumin 2.3 G/DL (3.4-5.0) L Globulin 5.0 g/dL Albumin/Globulin Ratio 0.5 (1.0-2.7) L Prothrombin Time 10.0 SEC (9.30-11.50) Prothromb Time International Ratio 0.9 (0.9-1.1) Activated Partial Thromboplast Time 30 SEC (23-33) Plan Problems: (1) Mass of right thigh Assessment & Plan: likely hematoma. see below (2) Hematoma Assessment & Plan: Right Thigh Hematoma. Likely from prior femoral line insertion given puncture site. Will obtain records to identify when and if line placed no signs of infection will obtain venous duplex of lower extremity and US of site to further evaluation warm compress will monitor clinically for now thank you for this consultation will follow with recs Imaging reveals a patent deep venous system bilaterally. There is no evidence of thrombus within the femoral, popliteal or tibial segments. The greater saphenous veins are also within normal limits. Doppler indicates normal spontaneous flow within these segments. 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 appreciate vascular input - plan for outpatient thrombin injection vs surgery by vascular (3) Decubitus ulcer of sacral region, unstageable Assessment & Plan: Resolving Stage IV sacral decubitus ulcer 4cm x 3cm with area of fibrinous debris / sloth in center. surrounding granulation tissue. prior scar periwound healing without active infection. no odor. no signs of active infection bilateral heel ulcers / DTPI wounds present on admission and will be cared for during hospital stay. please refer to photos for details Pt presents with resolving full thickness pressure injury to sacrum (L)3cm x (W) 2.9cm wound bed with Biofilm and trace loose slough otherwise viable.(+) maceration along edges with dark skin tone periwound.Resolving pressure injury to R heel (L)3.5cm x (W)4cm edges and periwound dry and dark but wound is pink and fluctuant centrally..Resolving pressure injury L heel centrally wound bed pink and dry with dry, dark borders without fluctuance. -wash wounds with NS daily -cleanse sacral wound with Saline.Apply Therahoney.Cavilon wipes along borders.Cover with Optifoam drsg Daily and prn. -cavilon wipes to both heels.Cover with Optifoam drsg. Change every 7 days and prn. -reposition at least every 2hours or as tolerated. -off-load heels with pillow. thank you Jean Marie Park Apr 23, 2018 15:22
--- NOTE | 2018-04-23 17:24 | Cardiac Electrophysiology PN ---
Assessment/Plan Assessment/Plan 1. Bradycardia with heart rate in the 50s and paroxysmal atrial fibrillation. 2. Paroxysmal atrial fibrillation, off metoprolol for bradycardia 3. Hypertension on Norvasc 10 qd, Hydralazine 25 q6 hr, Clonidine patch and p.r.n. clonidine. 4. Dysphagia, status post PEG placement. 5. Large Right femoral AV fistula/ pseudoaneurysm. FU with Dr. Park and Dr. Chisholm. Thrombin injection after DC at [facility] per Dr Chisholm 6. Sacral decubitus ulcer on antibiotic. 7. Anemia, S/P colonoscopy by Dr Post 8. Pleural effusion. S/P Thoracentesis today DW RN Subjective Subjective Comfortable in NAD. Colonoscopy showed diverticulosis. Just had Thoracentesis today Objective Last 24 Hour Vital Signs Date Time Temp Pulse Resp B/P (MAP) Pulse Ox O2 Delivery O2 Flow Rate FiO2 04/23/18 12:00 98.1 67 18 157/56 (89) 99 04/23/18 11:45 157/56 04/23/18 10:16 68 162/54 04/23/18 10:08 68 162/54 (90) 04/23/18 09:00 Nasal Cannula 2.0 04/23/18 08:00 97.6 72 16 131/77 (95) 100 04/23/18 04:41 156/63 04/23/18 04:00 97.9 71 20 156/63 (94) 99 04/23/18 00:00 98.7 77 20 142/69 (93) 100 04/22/18 21:39 148/55 04/22/18 21:00 Nasal Cannula 2.0 04/22/18 20:00 98.8 71 20 148/55 (86) 100 04/22/18 17:24 158/55 Intake and Output 04/22/18 04/23/18 18:59 06:59 Intake Total 820 ml 620 ml Output Total 700 ml Balance 820 ml -80 ml Intake Free Water 100 ml 260 ml Tube Feeding 720 ml 360 ml Output Urine Total 700 ml # Bowel Movements 1 3 Laboratory Tests Test 04/23/18 04:00 04/23/18 08:40 04/23/18 11:20 White Blood Count 9.3 K/UL (4.8-10.8) Red Blood Count 3.08 M/UL (4.20-5.40) L Hemoglobin 8.7 G/DL (12.0-16.0) L Hematocrit 27.8 % (37.0-47.0) L Mean Corpuscular Volume 90 FL (80-99) Mean Corpuscular Hemoglobin 28.2 PG (27.0-31.0) Mean Corpuscular Hemoglobin Concent 31.2 G/DL (32.0-36.0) L Red Cell Distribution Width 14.0 % (11.6-14.8) Platelet Count 178 K/UL (150-450) Mean Platelet Volume 8.7 FL (6.5-10.1) Neutrophils (%) (Auto) 70.2 % (45.0-75.0) Lymphocytes (%) (Auto) 15.2 % (20.0-45.0) L Monocytes (%) (Auto) 9.6 % (1.0-10.0) Eosinophils (%) (Auto) 4.1 % (0.0-3.0) H Basophils (%) (Auto) 0.9 % (0.0-2.0) Sodium Level 140 MMOL/L (136-145) 138 MMOL/L (136-145) Potassium Level 6.9 MMOL/L (3.5-5.1) *H 6.4 MMOL/L (3.5-5.1) *H Chloride Level 109 MMOL/L (98-107) H 107 MMOL/L (98-107) Carbon Dioxide Level 26 MMOL/L (21-32) 25 MMOL/L (21-32) Anion Gap 5 mmol/L (5-15) 6 mmol/L (5-15) Blood Urea Nitrogen 56 mg/dL (7-18) H 52 mg/dL (7-18) H Creatinine 2.2 MG/DL (0.55-1.30) H 2.2 MG/DL (0.55-1.30) H Estimat Glomerular Filtration Rate mL/min (>60) mL/min (>60) Glucose Level 122 MG/DL (74-106) H 190 MG/DL (74-106) H Uric Acid 4.3 MG/DL (2.6-7.2) Calcium Level 8.8 MG/DL (8.5-10.1) 8.5 MG/DL (8.5-10.1) Phosphorus Level 5.7 MG/DL (2.5-4.9) H Magnesium Level 3.2 MG/DL (1.8-2.4) H Total Bilirubin 0.3 MG/DL (0.2-1.0) Aspartate Amino Transf (AST/SGOT) 16 U/L (15-37) Alanine Aminotransferase (ALT/SGPT) 19 U/L (12-78) Alkaline Phosphatase 140 U/L (46-116) H Total Protein 7.3 G/DL (6.4-8.2) Albumin 2.3 G/DL (3.4-5.0) L Globulin 5.0 g/dL Albumin/Globulin Ratio 0.5 (1.0-2.7) L Prothrombin Time 10.0 SEC (9.30-11.50) Prothromb Time International Ratio 0.9 (0.9-1.1) Activated Partial Thromboplast Time 30 SEC (23-33) Objective HEAD AND NECK: No JVD LUNGS: Coarse rhonchi. CARDIOVASCULAR: Regular S1 and S2 with no murmur. ABDOMEN: Status post G-tube. EXTREMITIES: No pitting edema. Right femoral Mass/hematoma unchanged Everett Nair MD Apr 23, 2018 17:24
--- NOTE | 2018-04-23 21:20 | General Progress Note ---
Assessment/Plan Problem List: (1) CKD (chronic kidney disease) ICD Codes: N18.9 - Chronic kidney disease, unspecified SNOMED: 327843152 (2) Sepsis ICD Codes: A41.9 - Sepsis, unspecified organism SNOMED: 61822266 (3) Seizure disorder ICD Codes: G40.909 - Epilepsy, unspecified, not intractable, without status epilepticus SNOMED: 981568500 (4) Anemia ICD Codes: D64.9 - Anemia, unspecified SNOMED: 951591189 (5) MARK (acute kidney injury) ICD Codes: N17.9 - Acute kidney failure, unspecified SNOMED: 34368822 (6) Mass of right thigh ICD Codes: R22.41 - Localized swelling, mass and lump, right lower limb SNOMED: 614897050 (7) Hematoma ICD Codes: T14.8XXA - Other injury of unspecified body region, initial encounter SNOMED: 755918049 (8) Decubitus ulcer of sacral region, unstageable ICD Codes: L89.150 - Pressure ulcer of sacral region, unstageable SNOMED: 914894081, 309411681 (9) Diabetic nephropathy ICD Codes: E11.21 - Type 2 diabetes mellitus with diabetic nephropathy SNOMED: 95116956, 230073333 (10) Pneumonia ICD Codes: J18.9 - Pneumonia, unspecified organism SNOMED: 751026473 Status: progressing Assessment/Plan hematoma le severe hyperkalemia wound care anemia is getting worse multiple decub sepsis arf on top of cri Subjective ROS Limited/Unobtainable: Yes Allergies: Coded Allergies: PENICILLINS (Unverified Allergy, Mild, 04/20/18) 04/20/18- Patient has been on pip-tazo for this admission since 04/15/18 as well as previous admission. Pt has Penicillin allergy on profile-unknown reactions. Mirza Gallo and [place] French aware of allergy and are okay with continuing with pip-tazo. No reactions noted Objective Last 24 Hour Vital Signs Date Time Temp Pulse Resp B/P (MAP) Pulse Ox O2 Delivery O2 Flow Rate FiO2 04/23/18 18:28 165/54 04/23/18 18:23 66 165/54 (91) 04/23/18 16:00 97.7 69 18 151/95 (113) 100 04/23/18 12:00 98.1 67 18 157/56 (89) 99 04/23/18 11:45 157/56 04/23/18 10:16 68 162/54 04/23/18 10:08 68 162/54 (90) 04/23/18 09:00 Nasal Cannula 2.0 04/23/18 08:00 97.6 72 16 131/77 (95) 100 04/23/18 04:41 156/63 04/23/18 04:00 97.9 71 20 156/63 (94) 99 04/23/18 00:00 98.7 77 20 142/69 (93) 100 04/22/18 21:39 148/55 Intake and Output 04/22/18 04/23/18 18:59 06:59 Intake Total 820 ml 620 ml Output Total 700 ml Balance 820 ml -80 ml Intake Free Water 100 ml 260 ml Tube Feeding 720 ml 360 ml Output Urine Total 700 ml # Bowel Movements 1 3 Laboratory Tests 04/23/18 04:00: White Blood Count 9.3, Red Blood Count 3.08L, Hemoglobin 8.7L, Hematocrit 27.8L , Mean Corpuscular Volume 90, Mean Corpuscular Hemoglobin 28.2, Mean Corpuscular Hemoglobin Concent 31.2L, Red Cell Distribution Width 14.0, Platelet Count 178, Mean Platelet Volume 8.7, Neutrophils (%) (Auto) 70.2, Lymphocytes (%) (Auto) 15.2L, Monocytes (%) (Auto) 9.6, Eosinophils (%) (Auto) 4.1H, Basophils (%) (Auto) 0.9, Sodium Level 140, Potassium Level 6.9*H, Chloride Level 109H, Carbon Dioxide Level 26, Anion Gap 5, Blood Urea Nitrogen 56H, Creatinine 2.2H, Estimat Glomerular Filtration Rate , Glucose Level 122H, Uric Acid 4.3, Calcium Level 8.8, Phosphorus Level 5.7H, Magnesium Level 3.2H, Total Bilirubin 0.3, Aspartate Amino Transf (AST/SGOT) 16, Alanine Aminotransferase (ALT/SGPT) 19, Alkaline Phosphatase 140H, Total Protein 7.3, Albumin 2.3L, Globulin 5.0, Albumin/Globulin Ratio 0.5L 04/23/18 08:40: Prothrombin Time 10.0, Prothromb Time International Ratio 0.9, Activated Partial Thromboplast Time 30 04/23/18 11:20: Sodium Level 138, Potassium Level 6.4*H, Chloride Level 107, Carbon Dioxide Level 25, Anion Gap 6, Blood Urea Nitrogen 52H, Creatinine 2.2H, Estimat Glomerular Filtration Rate , Glucose Level 190H, Calcium Level 8.5 Height (Feet): 5 Height (Inches): 3.00 Weight (Pounds): 169 Krzysztof Schneider MD Apr 23, 2018 21:20
[2018-04-24] VITALS: BP 153/52
[2018-04-24 04:00] VITALS: BP 157/49
[2018-04-24] MEDS: HydrALAZINE 50mg tab GT SCH ×4 (04:06→21:41)
[2018-04-24] MEDS: NovoLOG Insulin Flexpen SUBQ SCH ×4 (07:12→23:51)
[2018-04-24 08:00] VITALS: BP 143/45
[2018-04-24] MEDS: Docusate 100mg/10ml Liq GT SCH ×3 (08:54→17:19)
[2018-04-24] MEDS: Heparin 5000 units/ml inj SUBQ SCH ×2 (08:56→19:57)
[2018-04-24] MEDS: Levemir Flexpen SUBQ SCH (08:56)
--- NOTE | 2018-04-24 09:22 | General Progress Note ---
Assessment/Plan Problem List: (1) Hypoglycemia ICD Codes: E16.2 - Hypoglycemia, unspecified SNOMED: 531394535 (2) CKD (chronic kidney disease) ICD Codes: N18.9 - Chronic kidney disease, unspecified SNOMED: 126104767 (3) Encephalopathy due to metabolic factor or toxin SNOMED: 162180956 (4) Hypertension ICD Codes: I10 - Essential (primary) hypertension SNOMED: 84422576 Assessment/Plan glucose values improved continue Levemir 8 units daily continue NISS every 6 hours Subjective ROS Limited/Unobtainable: Yes Allergies: Coded Allergies: PENICILLINS (Unverified Allergy, Mild, 04/20/18) 04/20/18- Patient has been on pip-tazo for this admission since 04/15/18 as well as previous admission. Pt has Penicillin allergy on profile-unknown reactions. Mirza Gallo and Belgica Padillaan aware of allergy and are okay with continuing with pip-tazo. No reactions noted Subjective events noted Objective Last 24 Hour Vital Signs Date Time Temp Pulse Resp B/P (MAP) Pulse Ox O2 Delivery O2 Flow Rate FiO2 04/24/18 08:54 73 143/45 04/24/18 08:00 97.7 73 16 143/45 (77) 100 04/24/18 04:06 157/49 04/24/18 04:00 98.0 72 20 157/49 (85) 100 04/24/18 00:00 97.3 72 20 153/52 (85) 100 04/23/18 21:39 169/52 04/23/18 21:00 Nasal Cannula 2.0 04/23/18 20:00 98.1 68 19 169/52 (91) 100 04/23/18 18:28 165/54 04/23/18 18:23 66 165/54 (91) 04/23/18 16:00 97.7 69 18 151/95 (113) 100 04/23/18 12:00 98.1 67 18 157/56 (89) 99 04/23/18 11:45 157/56 04/23/18 10:16 68 162/54 04/23/18 10:08 68 162/54 (90) Intake and Output 04/23/18 04/24/18 19:00 07:00 Intake Total 740 ml Output Total 900 ml 1000 ml Balance -160 ml -1000 ml Intake Free Water 200 ml Tube Feeding 540 ml Output Urine Total 900 ml 1000 ml # Bowel Movements 1 2 Laboratory Tests 04/23/18 11:20: Sodium Level 138, Potassium Level 6.4*H, Chloride Level 107, Carbon Dioxide Level 25, Anion Gap 6, Blood Urea Nitrogen 52H, Creatinine 2.2H, Estimat Glomerular Filtration Rate , Glucose Level 190H, Calcium Level 8.5 04/24/18 07:30: Sodium Level [Pending], Potassium Level [Pending], Chloride Level [Pending], Carbon Dioxide Level [Pending], Blood Urea Nitrogen [Pending], Creatinine [ Pending], Estimat Glomerular Filtration Rate [Pending], Glucose Level [Pending] , Calcium Level [Pending], White Blood Count [Pending], Red Blood Count [Pending ], Hemoglobin [Pending], Hematocrit [Pending], Mean Corpuscular Volume [Pending] , Mean Corpuscular Hemoglobin [Pending], Mean Corpuscular Hemoglobin Concent [ Pending], Red Cell Distribution Width [Pending], Platelet Count [Pending], Mean Platelet Volume [Pending], Neutrophils (%) (Auto) [Pending], Lymphocytes (%) ( Auto) [Pending], Monocytes (%) (Auto) [Pending], Eosinophils (%) (Auto) [Pending ], Basophils (%) (Auto) [Pending], Phosphorus Level [Pending], Magnesium Level [ Pending] Height (Feet): 5 Height (Inches): 3.00 Weight (Pounds): 169 General Appearance: no apparent distress Neck: normal alignment Cardiovascular: normal rate Respiratory/Chest: decreased breath sounds Abdomen: normal bowel sounds Objective Current Medications Medications (Trade) Dose Ordered Sig/Gelacio Route PRN Reason Start Time Stop Time Status Last Admin Dose Admin Acetaminophen (Tylenol) 650 mg Q4H PRN RECTAL fever (temp>100.5F) 04/15/18 18:15 05/14/18 22:14 Amlodipine Besylate (Norvasc) 10 mg DAILY GT 04/19/18 09:00 05/17/18 08:59 04/24/18 08:54 Bisacodyl (Dulcolax) 10 mg DAILYPRN PRN RECTAL Constipation 04/15/18 16:15 05/14/18 16:14 Clonidine HCl (Catapres TTS-3) 1 patch QWEEK TDERMAL 04/17/18 16:00 05/17/18 15:59 04/17/18 16:22 Clonidine HCl (Catapres Tab) 0.1 mg Q4H PRN GT bp over 165 syst 04/18/18 15:00 05/16/18 07:59 Dextrose (Dextrose 50%) 25 ml Q30M PRN IV Hypoglycemia 04/15/18 16:30 05/15/18 16:16 Dextrose (Dextrose 50%) 50 ml Q30M PRN IV hypoglycemia 04/15/18 16:30 05/15/18 16:29 Diphenhydramine HCl (Benadryl) 25 mg Q6H PRN GT Itching/Pruritis 04/15/18 16:15 05/14/18 22:14 04/22/18 21:39 Docusate Sodium (Colace) 100 mg TID GT 04/16/18 13:00 05/15/18 08:59 04/24/18 08:54 Heparin Sodium (Porcine) (Heparin 5000 units/ml) 5,000 units EVERY 12 HOURS SUBQ 04/15/18 21:00 05/15/18 20:59 04/24/18 08:56 Hydralazine HCl (Apresoline) 50 mg Q6H GT 04/19/18 16:30 05/17/18 16:29 04/24/18 04:06 Insulin Aspart (NovoLOG) EVERY 6 HOURS SUBQ 04/15/18 18:00 05/15/18 07:59 04/24/18 07:12 Insulin Detemir (Levemir) 8 units DAILY SUBQ 04/21/18 10:30 05/21/18 10:29 04/24/18 08:56 Lansoprazole (Prevacid) 30 mg BID GT 04/18/18 18:00 05/18/18 17:59 04/24/18 08:54 Ondansetron HCl (Zofran) 4 mg Q6H PRN IVP Nausea & Vomiting 04/15/18 16:15 05/14/18 22:14 Item Value Date Time Bedside Blood Glucose 167 mg/dl H 04/24/18 0856 Bedside Blood Glucose 167 mg/dl H 04/24/18 0600 Bedside Blood Glucose 96 mg/dl 04/23/18 2330 Bedside Blood Glucose 86 mg/dl 04/23/18 1832 Bedside Blood Glucose 187 mg/dl H 04/23/18 1237 Bedside Blood Glucose 129 mg/dl H 04/23/18 0600 Awais Badillo MD Apr 24, 2018 09:22
[2018-04-24 09:27] LABS: ANION GAP 10 mmol/L (5-15); BLOOD UREA NITROGEN 50 mg/dL (7-18); CALCIUM 8.5 MG/DL (8.5-10.1); CARBON DIOXIDE 24 MMOL/L (21-32); CHLORIDE 108 MMOL/L (98-107); CREATININE 2.1 MG/DL (0.55-1.30); PHOSPHORUS 6.6 MG/DL (2.5-4.9); POTASSIUM 5.9 MMOL/L (3.5-5.1); SODIUM 142 MMOL/L (136-145)
[2018-04-24 10:03] LABS: BASOPHILS % (AUTO) 1.1 % (0.0-2.0); EOSINOPHILS % (AUTO) 5.1 % (0.0-3.0); HEMATOCRIT 26.7 % (37.0-47.0); HEMOGLOBIN 8.4 G/DL (12.0-16.0); LYMPHOCYTES % (AUTO) 14.6 % (20.0-45.0); MEAN CORPUSCULAR VOLUME 90 FL (80-99); MONOCYTES % (AUTO) 8.5 % (1.0-10.0); NEUTROPHILS % (AUTO) 70.8 % (45.0-75.0); PLATELET COUNT 183 K/UL (150-450); RED BLOOD COUNT 2.96 M/UL (4.20-5.40); RED CELL DISTRIBUTION WIDTH 14.1 % (11.6-14.8); WHITE BLOOD COUNT 8.7 K/UL (4.8-10.8)
--- NOTE | 2018-04-24 10:07 | Diagnostic Imaging Report ---
Indication:pleural effusion Technique: Grayscale and duplex Doppler imaging of the chest performed. Comparison: None Findings: We are asked to perform a therapeutic thoracentesis. However the amount of fluid is small and does not warrant a thoracentesis for therapeutic purposes. If there is clinical concern such that a diagnostic thoracentesis is needed, this could be performed with some risk of pneumothorax. IMPRESSION: Small bilateral pleural effusions
--- NOTE | 2018-04-24 10:38 | Cardiac Electrophysiology PN ---
Assessment/Plan Assessment/Plan 1. Bradycardia with heart rate in the 50s and paroxysmal atrial fibrillation. Resolved 2. Paroxysmal atrial fibrillation, off metoprolol for bradycardia 3. Hypertension on Norvasc 10 qd, Hydralazine 25 q6 hr, Clonidine patch and p.r.n. clonidine. 4. Dysphagia, status post PEG placement. 5. Large Right femoral AV fistula/ pseudoaneurysm. FU with Dr. Park and Dr. Chisholm. Thrombin injection after DC at [facility] per Dr Chisholm 6. Sacral decubitus ulcer on antibiotic. 7. Anemia, S/P colonoscopy by Dr Post 8. Pleural effusion. S/P Thoracentesis 04/23/18 DW RN Subjective Subjective Comfortable in NAD. Colonoscopy showed diverticulosis. Had Thoracentesis yesterday Objective Last 24 Hour Vital Signs Date Time Temp Pulse Resp B/P (MAP) Pulse Ox O2 Delivery O2 Flow Rate FiO2 04/24/18 09:00 Nasal Cannula 2.0 04/24/18 08:54 73 143/45 04/24/18 08:00 97.7 73 16 143/45 (77) 100 04/24/18 04:06 157/49 04/24/18 04:00 98.0 72 20 157/49 (85) 100 04/24/18 00:00 97.3 72 20 153/52 (85) 100 04/23/18 21:39 169/52 04/23/18 21:00 Nasal Cannula 2.0 04/23/18 20:00 98.1 68 19 169/52 (91) 100 04/23/18 18:28 165/54 04/23/18 18:23 66 165/54 (91) 04/23/18 16:00 97.7 69 18 151/95 (113) 100 04/23/18 12:00 98.1 67 18 157/56 (89) 99 04/23/18 11:45 157/56 Intake and Output 04/23/18 04/24/18 19:00 07:00 Intake Total 740 ml Output Total 900 ml 1000 ml Balance -160 ml -1000 ml Intake Free Water 200 ml Tube Feeding 540 ml Output Urine Total 900 ml 1000 ml # Bowel Movements 1 2 Laboratory Tests Test 04/23/18 11:20 04/24/18 07:30 04/24/18 09:45 Sodium Level 138 MMOL/L (136-145) 142 MMOL/L (136-145) Potassium Level 6.4 MMOL/L (3.5-5.1) *H 5.9 MMOL/L (3.5-5.1) H Chloride Level 107 MMOL/L (98-107) 108 MMOL/L (98-107) H Carbon Dioxide Level 25 MMOL/L (21-32) 24 MMOL/L (21-32) Anion Gap 6 mmol/L (5-15) 10 mmol/L (5-15) Blood Urea Nitrogen 52 mg/dL (7-18) H 50 mg/dL (7-18) H Creatinine 2.2 MG/DL (0.55-1.30) H 2.1 MG/DL (0.55-1.30) H Estimat Glomerular Filtration Rate mL/min (>60) mL/min (>60) Glucose Level 190 MG/DL (74-106) H 158 MG/DL (74-106) H Calcium Level 8.5 MG/DL (8.5-10.1) 8.5 MG/DL (8.5-10.1) Phosphorus Level 6.6 MG/DL (2.5-4.9) H Magnesium Level 3.1 MG/DL (1.8-2.4) H White Blood Count 8.7 K/UL (4.8-10.8) Red Blood Count 2.96 M/UL (4.20-5.40) L Hemoglobin 8.4 G/DL (12.0-16.0) L Hematocrit 26.7 % (37.0-47.0) L Mean Corpuscular Volume 90 FL (80-99) Mean Corpuscular Hemoglobin 28.4 PG (27.0-31.0) Mean Corpuscular Hemoglobin Concent 31.5 G/DL (32.0-36.0) L Red Cell Distribution Width 14.1 % (11.6-14.8) Platelet Count 183 K/UL (150-450) Mean Platelet Volume 8.2 FL (6.5-10.1) Neutrophils (%) (Auto) 70.8 % (45.0-75.0) Lymphocytes (%) (Auto) 14.6 % (20.0-45.0) L Monocytes (%) (Auto) 8.5 % (1.0-10.0) Eosinophils (%) (Auto) 5.1 % (0.0-3.0) H Basophils (%) (Auto) 1.1 % (0.0-2.0) Objective HEAD AND NECK: No JVD LUNGS: Coarse rhonchi. CARDIOVASCULAR: Regular S1 and S2 with no murmur. ABDOMEN: G-tube intact. EXTREMITIES: No pitting edema. Right femoral Mass/hematoma unchanged Everett Nair MD Apr 24, 2018 10:38
--- NOTE | 2018-04-24 11:21 | General Progress Note ---
Assessment/Plan Status: stable Assessment/Plan # Anemia of chronic disease -- baseline appears to be 10-11 reviewed labs from 2012 --> at this time decreased, anemia panel has been ordered on prior admission and c/w acd --> transfuse as needed, hgb goal >7 --> no evidence of hemolysis noted --> anemia panel reviewed and is negative as well # Leukocytosis likely related to septic shock --> WBC has improved --> on abx and ivf --> appreciate ID recs and workup --> surg recs reviewed # Hematoma of the right groin -- 5.1 x 6.6 x 20 cm hyperattenuating right proximal thigh mass. 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 --> On heparin 5k units. --> outpatient potential thrombin injection per Dr. Olguin # Abnormal LFTs --> likely shock liver from overt sepsis. --> trend labs # Decubitus ulcer of sacral region, unstageable, 5cm x 4cm unstagable sacral decubitus ulcer, no drainage, mild periedge edema/erythema, soft, no odor present upon admission. will be cared for during hospital stay --> surg eval # Severe sepsis --> on abx as per ID # Respiratory failure with coarse rhonchi --> thora performed 04/23 --> as per pulm Greatly appreciate consultation! Subjective Date patient seen: Apr 24, 2018 ROS Limited/Unobtainable: Yes Hematologic/Lymphatic: Reports: anemia Allergies: Coded Allergies: PENICILLINS (Unverified Allergy, Mild, 04/20/18) 04/20/18- Patient has been on pip-tazo for this admission since 04/15/18 as well as previous admission. Pt has Penicillin allergy on profile-unknown reactions. Mirza Gallo and [place] French aware of allergy and are okay with continuing with pip-tazo. No reactions noted Subjective Pt resting in bed, nonverbal. No acute events. H/H stable. Colonoscopy showed diverticulosis. Had Thoracentesis yesterday. Objective Last 24 Hour Vital Signs Date Time Temp Pulse Resp B/P (MAP) Pulse Ox O2 Delivery O2 Flow Rate FiO2 04/24/18 09:00 Nasal Cannula 2.0 04/24/18 08:54 73 143/45 04/24/18 08:00 97.7 73 16 143/45 (77) 100 04/24/18 04:06 157/49 04/24/18 04:00 98.0 72 20 157/49 (85) 100 04/24/18 00:00 97.3 72 20 153/52 (85) 100 04/23/18 21:39 169/52 04/23/18 21:00 Nasal Cannula 2.0 04/23/18 20:00 98.1 68 19 169/52 (91) 100 04/23/18 18:28 165/54 04/23/18 18:23 66 165/54 (91) 04/23/18 16:00 97.7 69 18 151/95 (113) 100 04/23/18 12:00 98.1 67 18 157/56 (89) 99 04/23/18 11:45 157/56 Intake and Output 04/23/18 04/24/18 19:00 07:00 Intake Total 740 ml Output Total 900 ml 1000 ml Balance -160 ml -1000 ml Intake Free Water 200 ml Tube Feeding 540 ml Output Urine Total 900 ml 1000 ml # Bowel Movements 1 2 Laboratory Tests 04/23/18 11:20: Sodium Level 138, Potassium Level 6.4*H, Chloride Level 107, Carbon Dioxide Level 25, Anion Gap 6, Blood Urea Nitrogen 52H, Creatinine 2.2H, Estimat Glomerular Filtration Rate , Glucose Level 190H, Calcium Level 8.5 04/24/18 07:30: Sodium Level 142, Potassium Level 5.9H, Chloride Level 108H, Carbon Dioxide Level 24, Anion Gap 10, Blood Urea Nitrogen 50H, Creatinine 2.1H, Estimat Glomerular Filtration Rate , Glucose Level 158H, Calcium Level 8.5, Phosphorus Level 6.6H, Magnesium Level 3.1H 04/24/18 09:45: White Blood Count 8.7, Red Blood Count 2.96L, Hemoglobin 8.4L, Hematocrit 26.7L , Mean Corpuscular Volume 90, Mean Corpuscular Hemoglobin 28.4, Mean Corpuscular Hemoglobin Concent 31.5L, Red Cell Distribution Width 14.1, Platelet Count 183, Mean Platelet Volume 8.2, Neutrophils (%) (Auto) 70.8, Lymphocytes (%) (Auto) 14.6L, Monocytes (%) (Auto) 8.5, Eosinophils (%) (Auto) 5.1H, Basophils (%) (Auto) 1.1 Height (Feet): 5 Height (Inches): 3.00 Weight (Pounds): 169 Objective PHYSICAL EXAMINATION: VITAL SIGNS: Have been reviewed. HEAD AND NECK: Shows no jugular venous distention. LUNGS: Coarse rhonchi. CARDIOVASCULAR: Regular S1 and S2 with no gallop. ABDOMEN: Status post G-tube. EXTREMITIES: No pitting edema. Aleksandr Kern MD Apr 24, 2018 11:21
--- NOTE | 2018-04-24 11:23 | Pulmonology Progress Note ---
Assessment/Plan Problems: (1) Pleural effusion (2) Lung nodule < 6cm on CT (3) Pneumonia (4) Encephalopathy due to metabolic factor or toxin (5) Decubitus ulcer of sacral region, unstageable (6) Hematoma (7) Hypoglycemia (8) Mass of right thigh (9) Abnormal LFTs (10) MARK (acute kidney injury) (11) CKD (chronic kidney disease) (12) Shock (13) Hypertension (14) Sepsis (15) Seizure disorder (16) Anemia (17) PEG (percutaneous endoscopic gastrostomy) status (18) long term resident (19) Rectal abnormality Assessment/Plan Insufficient fluid for thora CXR Optimize pulmonary hygiene/mobilize as tolerated PRN O2 PRN HHN's Observe off Abx F/U vascular and surgery recs Monitor electrolytes and renal function, F/U renal recs Wound care TF's DVT Px: Hep SQ DNAR/DNI, continue to discuss GOC, consider supportive care evaluation Subjective Allergies: Coded Allergies: PENICILLINS (Unverified Allergy, Mild, 04/20/18) 04/20/18- Patient has been on pip-tazo for this admission since 04/15/18 as well as previous admission. Pt has Penicillin allergy on profile-unknown reactions. Mirza Gallo and [place] French aware of allergy and are okay with continuing with pip-tazo. No reactions noted Subjective AFVSS, O2 needs stable on 2L Thora not done 2/2 small effusion/unsafe MARK on CKD No distress, no cough, no FC, chet TF Objective Last 24 Hour Vital Signs Date Time Temp Pulse Resp B/P (MAP) Pulse Ox O2 Delivery O2 Flow Rate FiO2 04/24/18 11:05 154/54 04/24/18 09:00 Nasal Cannula 2.0 04/24/18 08:54 73 143/45 04/24/18 08:00 97.7 73 16 143/45 (77) 100 04/24/18 04:06 157/49 04/24/18 04:00 98.0 72 20 157/49 (85) 100 04/24/18 00:00 97.3 72 20 153/52 (85) 100 04/23/18 21:39 169/52 04/23/18 21:00 Nasal Cannula 2.0 04/23/18 20:00 98.1 68 19 169/52 (91) 100 04/23/18 18:28 165/54 04/23/18 18:23 66 165/54 (91) 04/23/18 16:00 97.7 69 18 151/95 (113) 100 04/23/18 12:00 98.1 67 18 157/56 (89) 99 04/23/18 11:45 157/56 Intake and Output 04/23/18 04/24/18 19:00 07:00 Intake Total 740 ml Output Total 900 ml 1000 ml Balance -160 ml -1000 ml Intake Free Water 200 ml Tube Feeding 540 ml Output Urine Total 900 ml 1000 ml # Bowel Movements 1 2 General Appearance: cachetic HEENT: normocephalic, atraumatic, anicteric, mucous membranes moist Respiratory/Chest: chest wall non-tender, lungs clear, normal breath sounds, no respiratory distress, no accessory muscle use Cardiovascular: normal peripheral pulses, normal rate, irregularly irregular Abdomen: normal bowel sounds, soft, non tender, no organomegaly, non distended , no mass, other - GT Extremities: no cyanosis, no clubbing, no edema Laboratory Tests 04/24/18 07:30: Sodium Level 142, Potassium Level 5.9H, Chloride Level 108H, Carbon Dioxide Level 24, Anion Gap 10, Blood Urea Nitrogen 50H, Creatinine 2.1H, Estimat Glomerular Filtration Rate , Glucose Level 158H, Calcium Level 8.5, Phosphorus Level 6.6H, Magnesium Level 3.1H 04/24/18 09:45: White Blood Count 8.7, Red Blood Count 2.96L, Hemoglobin 8.4L, Hematocrit 26.7L , Mean Corpuscular Volume 90, Mean Corpuscular Hemoglobin 28.4, Mean Corpuscular Hemoglobin Concent 31.5L, Red Cell Distribution Width 14.1, Platelet Count 183, Mean Platelet Volume 8.2, Neutrophils (%) (Auto) 70.8, Lymphocytes (%) (Auto) 14.6L, Monocytes (%) (Auto) 8.5, Eosinophils (%) (Auto) 5.1H, Basophils (%) (Auto) 1.1 Current Medications Medications (Trade) Dose Ordered Sig/Gelacio Route PRN Reason Start Time Stop Time Status Last Admin Dose Admin Acetaminophen (Tylenol) 650 mg Q4H PRN RECTAL fever (temp>100.5F) 04/15/18 18:15 05/14/18 22:14 Amlodipine Besylate (Norvasc) 10 mg DAILY GT 04/19/18 09:00 05/17/18 08:59 04/24/18 08:54 Bisacodyl (Dulcolax) 10 mg DAILYPRN PRN RECTAL Constipation 04/15/18 16:15 05/14/18 16:14 Clonidine HCl (Catapres TTS-3) 1 patch QWEEK TDERMAL 04/17/18 16:00 05/17/18 15:59 04/17/18 16:22 Clonidine HCl (Catapres Tab) 0.1 mg Q4H PRN GT bp over 165 syst 04/18/18 15:00 05/16/18 07:59 Dextrose (Dextrose 50%) 25 ml Q30M PRN IV Hypoglycemia 04/15/18 16:30 05/15/18 16:16 Dextrose (Dextrose 50%) 50 ml Q30M PRN IV hypoglycemia 04/15/18 16:30 05/15/18 16:29 Diphenhydramine HCl (Benadryl) 25 mg Q6H PRN GT Itching/Pruritis 04/15/18 16:15 05/14/18 22:14 04/22/18 21:39 Docusate Sodium (Colace) 100 mg TID GT 04/16/18 13:00 05/15/18 08:59 04/24/18 08:54 Heparin Sodium (Porcine) (Heparin 5000 units/ml) 5,000 units EVERY 12 HOURS SUBQ 04/15/18 21:00 05/15/18 20:59 04/24/18 08:56 Hydralazine HCl (Apresoline) 50 mg Q6H GT 04/19/18 16:30 05/17/18 16:29 04/24/18 11:05 Insulin Aspart (NovoLOG) EVERY 6 HOURS SUBQ 04/15/18 18:00 05/15/18 07:59 04/24/18 07:12 Insulin Detemir (Levemir) 8 units DAILY SUBQ 04/21/18 10:30 05/21/18 10:29 04/24/18 08:56 Lansoprazole (Prevacid) 30 mg BID GT 04/18/18 18:00 05/18/18 17:59 04/24/18 08:54 Ondansetron HCl (Zofran) 4 mg Q6H PRN IVP Nausea & Vomiting 04/15/18 16:15 05/14/18 22:14 Javon Gan MD Apr 24, 2018 11:23
[2018-04-24] MEDS ORDERED: Albuterol/Ipratropium 3ml neb HHN PRN (11:30)
[2018-04-24 12:00] VITALS: BP 153/56
--- NOTE | 2018-04-24 12:24 | Infectious Diseases Prog Note ---
Assessment/Plan Assessment/Plan A: 1. Sepsis/ Systemic inflammatory response syndrome with hypoglycemia, 2. pneumonia. treated 3. Diabetes mellitus. 4. Chronic kidney disease. 5. Anemia. 6. Seizure disorder. 7. 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 Diverticulosis & internal hemorrhoids 9. Pleural effusions, too small to drain P: Observe off of antibiotic wound care Subjective ROS Limited/Unobtainable: Yes Constitutional: Reports: no symptoms Neurologic: Reports: other - more communicative Allergies: Coded Allergies: PENICILLINS (Unverified Allergy, Mild, 04/20/18) 04/20/18- Patient has been on pip-tazo for this admission since 04/15/18 as well as previous admission. Pt has Penicillin allergy on profile-unknown reactions. Mirza Gallo and [place] French aware of allergy and are okay with continuing with pip-tazo. No reactions noted Objective Vital Signs Last 24 Hour Vital Signs Date Time Temp Pulse Resp B/P (MAP) Pulse Ox O2 Delivery O2 Flow Rate FiO2 04/24/18 11:05 154/54 04/24/18 09:00 Nasal Cannula 2.0 04/24/18 08:54 73 143/45 04/24/18 08:00 97.7 73 16 143/45 (77) 100 04/24/18 04:06 157/49 04/24/18 04:00 98.0 72 20 157/49 (85) 100 04/24/18 00:00 97.3 72 20 153/52 (85) 100 04/23/18 21:39 169/52 04/23/18 21:00 Nasal Cannula 2.0 04/23/18 20:00 98.1 68 19 169/52 (91) 100 04/23/18 18:28 165/54 04/23/18 18:23 66 165/54 (91) 04/23/18 16:00 97.7 69 18 151/95 (113) 100 Height (Feet): 5 Height (Inches): 3.00 Weight (Pounds): 169 HEENT: other - dry mouth Respiratory/Chest: lungs clear Cardiovascular: normal rate Abdomen: soft, non tender, other - GT feeding Extremities: no edema Skin: ulcers Neurologic/Psychiatric: alert, responsive Laboratory Tests Test 04/24/18 07:30 04/24/18 09:45 Sodium Level 142 MMOL/L (136-145) Potassium Level 5.9 MMOL/L (3.5-5.1) H Chloride Level 108 MMOL/L (98-107) H Carbon Dioxide Level 24 MMOL/L (21-32) Anion Gap 10 mmol/L (5-15) Blood Urea Nitrogen 50 mg/dL (7-18) H Creatinine 2.1 MG/DL (0.55-1.30) H Estimat Glomerular Filtration Rate mL/min (>60) Glucose Level 158 MG/DL (74-106) H Calcium Level 8.5 MG/DL (8.5-10.1) Phosphorus Level 6.6 MG/DL (2.5-4.9) H Magnesium Level 3.1 MG/DL (1.8-2.4) H White Blood Count 8.7 K/UL (4.8-10.8) Red Blood Count 2.96 M/UL (4.20-5.40) L Hemoglobin 8.4 G/DL (12.0-16.0) L Hematocrit 26.7 % (37.0-47.0) L Mean Corpuscular Volume 90 FL (80-99) Mean Corpuscular Hemoglobin 28.4 PG (27.0-31.0) Mean Corpuscular Hemoglobin Concent 31.5 G/DL (32.0-36.0) L Red Cell Distribution Width 14.1 % (11.6-14.8) Platelet Count 183 K/UL (150-450) Mean Platelet Volume 8.2 FL (6.5-10.1) Neutrophils (%) (Auto) 70.8 % (45.0-75.0) Lymphocytes (%) (Auto) 14.6 % (20.0-45.0) L Monocytes (%) (Auto) 8.5 % (1.0-10.0) Eosinophils (%) (Auto) 5.1 % (0.0-3.0) H Basophils (%) (Auto) 1.1 % (0.0-2.0) Current Medications Medications (Trade) Dose Ordered Sig/Gelacio Route PRN Reason Start Time Stop Time Status Last Admin Dose Admin Acetaminophen (Tylenol) 650 mg Q4H PRN RECTAL fever (temp>100.5F) 04/15/18 18:15 05/14/18 22:14 Albuterol/ Ipratropium (Albuterol/ Ipratropium) 3 ml Q4H PRN HHN Shortness of Breath 04/24/18 11:30 04/29/18 11:29 Amlodipine Besylate (Norvasc) 10 mg DAILY GT 04/19/18 09:00 05/17/18 08:59 04/24/18 08:54 Bisacodyl (Dulcolax) 10 mg DAILYPRN PRN RECTAL Constipation 04/15/18 16:15 05/14/18 16:14 Clonidine HCl (Catapres TTS-3) 1 patch QWEEK TDERMAL 04/17/18 16:00 05/17/18 15:59 04/17/18 16:22 Clonidine HCl (Catapres Tab) 0.1 mg Q4H PRN GT bp over 165 syst 04/18/18 15:00 05/16/18 07:59 Dextrose (Dextrose 50%) 25 ml Q30M PRN IV Hypoglycemia 04/15/18 16:30 05/15/18 16:16 Dextrose (Dextrose 50%) 50 ml Q30M PRN IV hypoglycemia 04/15/18 16:30 05/15/18 16:29 Diphenhydramine HCl (Benadryl) 25 mg Q6H PRN GT Itching/Pruritis 04/15/18 16:15 05/14/18 22:14 04/22/18 21:39 Docusate Sodium (Colace) 100 mg TID GT 04/16/18 13:00 05/15/18 08:59 04/24/18 12:17 Heparin Sodium (Porcine) (Heparin 5000 units/ml) 5,000 units EVERY 12 HOURS SUBQ 04/15/18 21:00 05/15/18 20:59 04/24/18 08:56 Hydralazine HCl (Apresoline) 50 mg Q6H GT 04/19/18 16:30 05/17/18 16:29 04/24/18 11:05 Insulin Aspart (NovoLOG) EVERY 6 HOURS SUBQ 04/15/18 18:00 05/15/18 07:59 04/24/18 12:20 Insulin Detemir (Levemir) 8 units DAILY SUBQ 04/21/18 10:30 05/21/18 10:29 04/24/18 08:56 Lansoprazole (Prevacid) 30 mg BID GT 04/18/18 18:00 05/18/18 17:59 04/24/18 08:54 Ondansetron HCl (Zofran) 4 mg Q6H PRN IVP Nausea & Vomiting 04/15/18 16:15 05/14/18 22:14 Wilder French MD Apr 24, 2018 12:24
[2018-04-24] MEDS ORDERED: Sodium Polystyrene Sulfonate 15gm Powder GT SCH (12:45)
--- NOTE | 2018-04-24 13:03 | GI Progress Note ---
Assessment/Plan Problems: (1) Anemia ICD Codes: D64.9 - Anemia, unspecified SNOMED: 897364038 (2) Diabetic nephropathy ICD Codes: E11.21 - Type 2 diabetes mellitus with diabetic nephropathy SNOMED: 65750187, 277499911 (3) Hypoglycemia ICD Codes: E16.2 - Hypoglycemia, unspecified SNOMED: 512427016 (4) Mass of right thigh ICD Codes: R22.41 - Localized swelling, mass and lump, right lower limb SNOMED: 918177205 (5) PEG (percutaneous endoscopic gastrostomy) status ICD Codes: Z93.1 - Gastrostomy status SNOMED: 389253773, 642209833 Status: stable Status Narrative Discussed with Dr. Post. Assessment/Plan s/p colonoscopy>>> no rectal mass seen OB stool negative okay for DC per GI standpoint GTFs per RD to goal fu labs prn transfusions ppi The patient was seen and examined at bedside and all new and available data was reviewed in the patients chart. I agree with the above findings, impression and plan. (Patient seen earlier today. Signature stamp does not reflect patient encounter time.). - Ruben Post MD Subjective Subjective limited Objective Last 24 Hour Vital Signs Date Time Temp Pulse Resp B/P (MAP) Pulse Ox O2 Delivery O2 Flow Rate FiO2 04/24/18 11:05 154/54 04/24/18 09:00 Nasal Cannula 2.0 04/24/18 08:54 73 143/45 04/24/18 08:00 97.7 73 16 143/45 (77) 100 04/24/18 04:06 157/49 04/24/18 04:00 98.0 72 20 157/49 (85) 100 04/24/18 00:00 97.3 72 20 153/52 (85) 100 04/23/18 21:39 169/52 04/23/18 21:00 Nasal Cannula 2.0 04/23/18 20:00 98.1 68 19 169/52 (91) 100 04/23/18 18:28 165/54 04/23/18 18:23 66 165/54 (91) 04/23/18 16:00 97.7 69 18 151/95 (113) 100 Intake and Output 04/23/18 04/24/18 19:00 07:00 Intake Total 740 ml 60 ml Output Total 900 ml 1000 ml Balance -160 ml -940 ml Intake Free Water 200 ml Tube Feeding 540 ml 60 ml Output Urine Total 900 ml 1000 ml # Bowel Movements 1 2 Laboratory Tests Test 04/24/18 07:30 04/24/18 09:45 Sodium Level 142 MMOL/L (136-145) Potassium Level 5.9 MMOL/L (3.5-5.1) H Chloride Level 108 MMOL/L (98-107) H Carbon Dioxide Level 24 MMOL/L (21-32) Anion Gap 10 mmol/L (5-15) Blood Urea Nitrogen 50 mg/dL (7-18) H Creatinine 2.1 MG/DL (0.55-1.30) H Estimat Glomerular Filtration Rate mL/min (>60) Glucose Level 158 MG/DL (74-106) H Calcium Level 8.5 MG/DL (8.5-10.1) Phosphorus Level 6.6 MG/DL (2.5-4.9) H Magnesium Level 3.1 MG/DL (1.8-2.4) H White Blood Count 8.7 K/UL (4.8-10.8) Red Blood Count 2.96 M/UL (4.20-5.40) L Hemoglobin 8.4 G/DL (12.0-16.0) L Hematocrit 26.7 % (37.0-47.0) L Mean Corpuscular Volume 90 FL (80-99) Mean Corpuscular Hemoglobin 28.4 PG (27.0-31.0) Mean Corpuscular Hemoglobin Concent 31.5 G/DL (32.0-36.0) L Red Cell Distribution Width 14.1 % (11.6-14.8) Platelet Count 183 K/UL (150-450) Mean Platelet Volume 8.2 FL (6.5-10.1) Neutrophils (%) (Auto) 70.8 % (45.0-75.0) Lymphocytes (%) (Auto) 14.6 % (20.0-45.0) L Monocytes (%) (Auto) 8.5 % (1.0-10.0) Eosinophils (%) (Auto) 5.1 % (0.0-3.0) H Basophils (%) (Auto) 1.1 % (0.0-2.0) Height (Feet): 5 Height (Inches): 3.00 Weight (Pounds): 169 General Appearance: WD/WN, no apparent distress, alert Cardiovascular: normal rate Respiratory/Chest: normal breath sounds, no respiratory distress Abdominal Exam: normal bowel sounds, non tender, soft Extremities: non-tender Loraine Wick NP Apr 24, 2018 13:03
--- NOTE | 2018-04-24 13:49 | Nephrology Progress Note ---
Assessment/Plan Problem List: (1) Hypertension (2) MARK (acute kidney injury) (3) CKD (chronic kidney disease) (4) Diabetic nephropathy Assessment High K today acute on chronic renal failure: Dehydration HTN DM / Proteinuria / HypoAlbuminemia Encephalopathy due to metabolic factor or toxin Hypoglycemia Anemia Decubitus ulcer of sacral region, unstageable PEG (percutaneous endoscopic gastrostomy) status Plan DC Lisinopril more Kayexelate IV Bollous change feeding to Nephro BP meds- adjusted Monitor BS- Anemia conn avoid Nephrotoxics Monitor renal parameters per orders Subjective ROS Limited/Unobtainable: No Constitutional: Reports: malaise, weakness Objective Objective Last 24 Hour Vital Signs Date Time Temp Pulse Resp B/P (MAP) Pulse Ox O2 Delivery O2 Flow Rate FiO2 04/24/18 12:00 99.5 78 16 153/56 (88) 100 04/24/18 11:05 154/54 04/24/18 09:00 Nasal Cannula 2.0 04/24/18 08:54 73 143/45 04/24/18 08:00 97.7 73 16 143/45 (77) 100 04/24/18 04:06 157/49 04/24/18 04:00 98.0 72 20 157/49 (85) 100 04/24/18 00:00 97.3 72 20 153/52 (85) 100 04/23/18 21:39 169/52 04/23/18 21:00 Nasal Cannula 2.0 04/23/18 20:00 98.1 68 19 169/52 (91) 100 04/23/18 18:28 165/54 04/23/18 18:23 66 165/54 (91) 04/23/18 16:00 97.7 69 18 151/95 (113) 100 Intake and Output 04/23/18 04/24/18 19:00 07:00 Intake Total 740 ml 60 ml Output Total 900 ml 1000 ml Balance -160 ml -940 ml Intake Free Water 200 ml Tube Feeding 540 ml 60 ml Output Urine Total 900 ml 1000 ml # Bowel Movements 1 2 Laboratory Tests 04/24/18 07:30: Sodium Level 142, Potassium Level 5.9H, Chloride Level 108H, Carbon Dioxide Level 24, Anion Gap 10, Blood Urea Nitrogen 50H, Creatinine 2.1H, Estimat Glomerular Filtration Rate , Glucose Level 158H, Calcium Level 8.5, Phosphorus Level 6.6H, Magnesium Level 3.1H 04/24/18 09:45: White Blood Count 8.7, Red Blood Count 2.96L, Hemoglobin 8.4L, Hematocrit 26.7L , Mean Corpuscular Volume 90, Mean Corpuscular Hemoglobin 28.4, Mean Corpuscular Hemoglobin Concent 31.5L, Red Cell Distribution Width 14.1, Platelet Count 183, Mean Platelet Volume 8.2, Neutrophils (%) (Auto) 70.8, Lymphocytes (%) (Auto) 14.6L, Monocytes (%) (Auto) 8.5, Eosinophils (%) (Auto) 5.1H, Basophils (%) (Auto) 1.1 Height (Feet): 5 Height (Inches): 3.00 Weight (Pounds): 169 Objective no change Phil Ortiz MD Apr 24, 2018 13:49
--- NOTE | 2018-04-24 16:04 | Diagnostic Imaging Report ---
Indication: Dyspnea Comparison: 04/14/2018 A single view chest radiograph was obtained. Findings: Pulmonary vascular congestion demonstrated. The heart is enlarged. Bilateral pleural effusion suspected. Lung volumes appear low. IMPRESSION: Congestive heart failure
[2018-04-24 16:08] VITALS: BP 130/72
[2018-04-24 20:00] VITALS: BP 163/52
--- NOTE | 2018-04-24 20:44 | General Progress Note ---
Assessment/Plan Problem List: (1) CKD (chronic kidney disease) ICD Codes: N18.9 - Chronic kidney disease, unspecified SNOMED: 862605958 (2) Sepsis ICD Codes: A41.9 - Sepsis, unspecified organism SNOMED: 58726548 (3) Seizure disorder ICD Codes: G40.909 - Epilepsy, unspecified, not intractable, without status epilepticus SNOMED: 369071470 (4) Anemia ICD Codes: D64.9 - Anemia, unspecified SNOMED: 580787279 (5) MARK (acute kidney injury) ICD Codes: N17.9 - Acute kidney failure, unspecified SNOMED: 68010498 (6) Mass of right thigh ICD Codes: R22.41 - Localized swelling, mass and lump, right lower limb SNOMED: 523588549 (7) Hematoma ICD Codes: T14.8XXA - Other injury of unspecified body region, initial encounter SNOMED: 037698992 (8) Decubitus ulcer of sacral region, unstageable ICD Codes: L89.150 - Pressure ulcer of sacral region, unstageable SNOMED: 194825364, 517649763 (9) Diabetic nephropathy ICD Codes: E11.21 - Type 2 diabetes mellitus with diabetic nephropathy SNOMED: 08949623, 826085382 (10) Pneumonia ICD Codes: J18.9 - Pneumonia, unspecified organism SNOMED: 406652580 Status: progressing Assessment/Plan hematoma le severe hyperkalemia wound care anemia multiple decub sepsis arf on top of cri reviewed chart and labs Subjective ROS Limited/Unobtainable: Yes Allergies: Coded Allergies: PENICILLINS (Unverified Allergy, Mild, 04/20/18) 04/20/18- Patient has been on pip-tazo for this admission since 04/15/18 as well as previous admission. Pt has Penicillin allergy on profile-unknown reactions. Mirza Gallo and [place] French aware of allergy and are okay with continuing with pip-tazo. No reactions noted Objective Last 24 Hour Vital Signs Date Time Temp Pulse Resp B/P (MAP) Pulse Ox O2 Delivery O2 Flow Rate FiO2 04/24/18 20:00 99.2 79 19 163/52 (89) 98 04/24/18 17:54 130/72 04/24/18 17:19 130/72 04/24/18 16:08 96.4 68 18 130/72 (91) 100 04/24/18 12:00 99.5 78 16 153/56 (88) 100 04/24/18 11:05 154/54 04/24/18 09:00 Nasal Cannula 2.0 04/24/18 08:54 73 143/45 04/24/18 08:00 97.7 73 16 143/45 (77) 100 04/24/18 04:06 157/49 04/24/18 04:00 98.0 72 20 157/49 (85) 100 04/24/18 00:00 97.3 72 20 153/52 (85) 100 04/23/18 21:39 169/52 04/23/18 21:00 Nasal Cannula 2.0 Intake and Output 04/23/18 04/24/18 19:00 07:00 Intake Total 740 ml 60 ml Output Total 900 ml 1000 ml Balance -160 ml -940 ml Intake Free Water 200 ml Tube Feeding 540 ml 60 ml Output Urine Total 900 ml 1000 ml # Bowel Movements 1 2 Laboratory Tests 04/24/18 07:30: Sodium Level 142, Potassium Level 5.9H, Chloride Level 108H, Carbon Dioxide Level 24, Anion Gap 10, Blood Urea Nitrogen 50H, Creatinine 2.1H, Estimat Glomerular Filtration Rate , Glucose Level 158H, Calcium Level 8.5, Phosphorus Level 6.6H, Magnesium Level 3.1H 04/24/18 09:45: White Blood Count 8.7, Red Blood Count 2.96L, Hemoglobin 8.4L, Hematocrit 26.7L , Mean Corpuscular Volume 90, Mean Corpuscular Hemoglobin 28.4, Mean Corpuscular Hemoglobin Concent 31.5L, Red Cell Distribution Width 14.1, Platelet Count 183, Mean Platelet Volume 8.2, Neutrophils (%) (Auto) 70.8, Lymphocytes (%) (Auto) 14.6L, Monocytes (%) (Auto) 8.5, Eosinophils (%) (Auto) 5.1H, Basophils (%) (Auto) 1.1 Height (Feet): 5 Height (Inches): 3.00 Weight (Pounds): 169 Neck: supple Cardiovascular: normal rate Respiratory/Chest: lungs clear Abdomen: soft Krzysztof Schneider MD Apr 24, 2018 20:44
--- NOTE | 2018-04-24 21:37 | General Surgery Progress Note ---
General Surgery-Progress Note Subjective Additional Comments no acute events. k elevated but improved. hematoma stable. no bleeding noted. radiology reviewed Objective Last 24 Hour Vital Signs Date Time Temp Pulse Resp B/P (MAP) Pulse Ox O2 Delivery O2 Flow Rate FiO2 04/24/18 20:00 99.2 79 19 163/52 (89) 98 04/24/18 17:54 130/72 04/24/18 17:19 130/72 04/24/18 16:08 96.4 68 18 130/72 (91) 100 04/24/18 12:00 99.5 78 16 153/56 (88) 100 04/24/18 11:05 154/54 04/24/18 09:00 Nasal Cannula 2.0 04/24/18 08:54 73 143/45 04/24/18 08:00 97.7 73 16 143/45 (77) 100 04/24/18 04:06 157/49 04/24/18 04:00 98.0 72 20 157/49 (85) 100 04/24/18 00:00 97.3 72 20 153/52 (85) 100 04/23/18 21:39 169/52 I&O Intake and Output 04/23/18 04/24/18 19:00 07:00 Intake Total 740 ml 60 ml Output Total 900 ml 1000 ml Balance -160 ml -940 ml Intake Free Water 200 ml Tube Feeding 540 ml 60 ml Output Urine Total 900 ml 1000 ml # Bowel Movements 1 2 Wound: clean, other - large hematoma stable. Drains: other Cardiovascular: RSR Respiratory: decreased breath sounds Abdomen: soft, flat, present bowel sounds Extremities: other Laboratory Tests Test 04/24/18 07:30 04/24/18 09:45 Sodium Level 142 MMOL/L (136-145) Potassium Level 5.9 MMOL/L (3.5-5.1) H Chloride Level 108 MMOL/L (98-107) H Carbon Dioxide Level 24 MMOL/L (21-32) Anion Gap 10 mmol/L (5-15) Blood Urea Nitrogen 50 mg/dL (7-18) H Creatinine 2.1 MG/DL (0.55-1.30) H Estimat Glomerular Filtration Rate mL/min (>60) Glucose Level 158 MG/DL (74-106) H Calcium Level 8.5 MG/DL (8.5-10.1) Phosphorus Level 6.6 MG/DL (2.5-4.9) H Magnesium Level 3.1 MG/DL (1.8-2.4) H White Blood Count 8.7 K/UL (4.8-10.8) Red Blood Count 2.96 M/UL (4.20-5.40) L Hemoglobin 8.4 G/DL (12.0-16.0) L Hematocrit 26.7 % (37.0-47.0) L Mean Corpuscular Volume 90 FL (80-99) Mean Corpuscular Hemoglobin 28.4 PG (27.0-31.0) Mean Corpuscular Hemoglobin Concent 31.5 G/DL (32.0-36.0) L Red Cell Distribution Width 14.1 % (11.6-14.8) Platelet Count 183 K/UL (150-450) Mean Platelet Volume 8.2 FL (6.5-10.1) Neutrophils (%) (Auto) 70.8 % (45.0-75.0) Lymphocytes (%) (Auto) 14.6 % (20.0-45.0) L Monocytes (%) (Auto) 8.5 % (1.0-10.0) Eosinophils (%) (Auto) 5.1 % (0.0-3.0) H Basophils (%) (Auto) 1.1 % (0.0-2.0) Plan Problems: (1) Mass of right thigh Assessment & Plan: likely hematoma. see below (2) Hematoma Assessment & Plan: Right Thigh Hematoma. Likely from prior femoral line insertion given puncture site. Will obtain records to identify when and if line placed no signs of infection will obtain venous duplex of lower extremity and US of site to further evaluation warm compress will monitor clinically for now thank you for this consultation will follow with recs Imaging reveals a patent deep venous system bilaterally. There is no evidence of thrombus within the femoral, popliteal or tibial segments. The greater saphenous veins are also within normal limits. Doppler indicates normal spontaneous flow within these segments. 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 appreciate vascular input - plan for outpatient thrombin injection vs surgery by vascular james to d/c from surgical standpoint with outpatient vascular follow up (3) Decubitus ulcer of sacral region, unstageable Assessment & Plan: Resolving Stage IV sacral decubitus ulcer 4cm x 3cm with area of fibrinous debris / sloth in center. surrounding granulation tissue. prior scar periwound healing without active infection. no odor. no signs of active infection bilateral heel ulcers / DTPI wounds present on admission and will be cared for during hospital stay. please refer to photos for details Pt presents with resolving full thickness pressure injury to sacrum (L)3cm x (W) 2.9cm wound bed with Biofilm and trace loose slough otherwise viable.(+) maceration along edges with dark skin tone periwound.Resolving pressure injury to R heel (L)3.5cm x (W)4cm edges and periwound dry and dark but wound is pink and fluctuant centrally..Resolving pressure injury L heel centrally wound bed pink and dry with dry, dark borders without fluctuance. -wash wounds with NS daily -cleanse sacral wound with Saline.Apply Therahoney.Cavilon wipes along borders.Cover with Optifoam drsg Daily and prn. -cavilon wipes to both heels.Cover with Optifoam drsg. Change every 7 days and prn. -reposition at least every 2hours or as tolerated. -off-load heels with pillow. thank you Jean Marie Park Apr 24, 2018 21:37
--- NOTE | 2018-04-24 23:52 | General Progress Note ---
Assessment/Plan Problem List: (1) Encephalopathy due to metabolic factor or toxin SNOMED: 926192903 (2) Major depression ICD Codes: F32.9 - Major depressive disorder, single episode, unspecified SNOMED: 863462159 Status: stable Assessment/Plan cont current meds provided ro/st Subjective Neurologic/Psychiatric: Reports: anxiety, depressed, emotional problems Allergies: Coded Allergies: PENICILLINS (Unverified Allergy, Mild, 04/20/18) 04/20/18- Patient has been on pip-tazo for this admission since 04/15/18 as well as previous admission. Pt has Penicillin allergy on profile-unknown reactions. Mirza Gallo and [place] French aware of allergy and are okay with continuing with pip-tazo. No reactions noted Objective Last 24 Hour Vital Signs Date Time Temp Pulse Resp B/P (MAP) Pulse Ox O2 Delivery O2 Flow Rate FiO2 04/24/18 21:41 163/52 04/24/18 21:00 Nasal Cannula 2.0 04/24/18 20:00 99.2 79 19 163/52 (89) 98 04/24/18 17:54 130/72 04/24/18 17:19 130/72 04/24/18 16:08 96.4 68 18 130/72 (91) 100 04/24/18 12:00 99.5 78 16 153/56 (88) 100 04/24/18 11:05 154/54 04/24/18 09:00 Nasal Cannula 2.0 04/24/18 08:54 73 143/45 04/24/18 08:00 97.7 73 16 143/45 (77) 100 04/24/18 04:06 157/49 04/24/18 04:00 98.0 72 20 157/49 (85) 100 04/24/18 00:00 97.3 72 20 153/52 (85) 100 Intake and Output 04/23/18 04/24/18 18:59 06:59 Intake Total 740 ml Output Total 900 ml 1000 ml Balance -160 ml -1000 ml Intake Free Water 200 ml Tube Feeding 540 ml Output Urine Total 900 ml 1000 ml # Bowel Movements 1 2 Laboratory Tests 04/24/18 07:30: Sodium Level 142, Potassium Level 5.9H, Chloride Level 108H, Carbon Dioxide Level 24, Anion Gap 10, Blood Urea Nitrogen 50H, Creatinine 2.1H, Estimat Glomerular Filtration Rate , Glucose Level 158H, Calcium Level 8.5, Phosphorus Level 6.6H, Magnesium Level 3.1H 04/24/18 09:45: White Blood Count 8.7, Red Blood Count 2.96L, Hemoglobin 8.4L, Hematocrit 26.7L , Mean Corpuscular Volume 90, Mean Corpuscular Hemoglobin 28.4, Mean Corpuscular Hemoglobin Concent 31.5L, Red Cell Distribution Width 14.1, Platelet Count 183, Mean Platelet Volume 8.2, Neutrophils (%) (Auto) 70.8, Lymphocytes (%) (Auto) 14.6L, Monocytes (%) (Auto) 8.5, Eosinophils (%) (Auto) 5.1H, Basophils (%) (Auto) 1.1 Height (Feet): 5 Height (Inches): 3.00 Weight (Pounds): 169 General Appearance: no apparent distress, alert Neurologic: oriented x 3, responsive, depressed affect China Kidd MD Apr 24, 2018 23:52
[2018-04-25] VITALS: BP 156/46
[2018-04-25 04:00] VITALS: BP 151/54
[2018-04-25] MEDS: HydrALAZINE 50mg tab GT SCH ×2 (05:05→12:11)
[2018-04-25] MEDS: NovoLOG Insulin Flexpen SUBQ SCH ×2 (05:07→12:10)
[2018-04-25 05:59] LABS: BASOPHILS % (AUTO) 1.2 % (0.0-2.0); EOSINOPHILS % (AUTO) 4.4 % (0.0-3.0); HEMATOCRIT 25.4 % (37.0-47.0); LYMPHOCYTES % (AUTO) 15.9 % (20.0-45.0); MEAN CORPUSCULAR VOLUME 90 FL (80-99); MONOCYTES % (AUTO) 9.2 % (1.0-10.0); NEUTROPHILS % (AUTO) 69.2 % (45.0-75.0); PLATELET COUNT 202 K/UL (150-450); RED BLOOD COUNT 2.82 M/UL (4.20-5.40); RED CELL DISTRIBUTION WIDTH 13.9 % (11.6-14.8); WHITE BLOOD COUNT 8.2 K/UL (4.8-10.8)
[2018-04-25 06:13] LABS: ANION GAP 4 mmol/L (5-15); BLOOD UREA NITROGEN 51 mg/dL (7-18); CALCIUM 8.8 MG/DL (8.5-10.1); CARBON DIOXIDE 31 MMOL/L (21-32); CHLORIDE 109 MMOL/L (98-107); CREATININE 2.1 MG/DL (0.55-1.30); PHOSPHORUS 6.2 MG/DL (2.5-4.9); POTASSIUM 4.6 MMOL/L (3.5-5.1); SODIUM 144 MMOL/L (136-145)
[2018-04-25 06:25] LABS: ALANINE AMINOTRANSFERASE 14 U/L (12-78); ALBUMIN 2.3 G/DL (3.4-5.0); ALKALINE PHOSPHATASE 140 U/L (46-116); ASPARTATE AMINO TRANSFERASE 16 U/L (15-37); BILIRUBIN,DIRECT < 0.1 MG/DL (0.0-0.3); BILIRUBIN,TOTAL 0.3 MG/DL (0.2-1.0)
--- NOTE | 2018-04-25 07:29 | General Progress Note ---
Assessment/Plan Assessment/Plan # Anemia of chronic disease -- baseline appears to be 10-11 reviewed labs from 2012 --> at this time decreased, anemia panel has been ordered on prior admission and c/w acd --> transfuse as needed, hgb goal >7 --> no evidence of hemolysis noted --> anemia panel reviewed and is negative as well --> colo has been completed 04/17 and no rectal mass seen # Leukocytosis likely related to septic shock --> WBC has improved --> on abx and ivf --> appreciate ID recs and workup --> surg recs reviewed # Hematoma of the right groin -- 5.1 x 6.6 x 20 cm hyperattenuating right proximal thigh mass. 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 --> On heparin 5k units. --> outpatient potential thrombin injection per Dr. Olguin # Abnormal LFTs --> likely shock liver from overt sepsis. --> trend labs # Decubitus ulcer of sacral region, unstageable, 5cm x 4cm unstagable sacral decubitus ulcer, no drainage, mild periedge edema/erythema, soft, no odor present upon admission. will be cared for during hospital stay --> surg eval # Severe sepsis --> on abx as per ID # Respiratory failure with coarse rhonchi --> thora performed 04/23 --> pending cyto --> as per pulm Greatly appreciate consultation! Subjective Constitutional: Denies: no symptoms, chills, diaphoresis, fever, malaise, weakness, other HEENT: Denies: no symptoms, eye pain, blurred vision, tearing, double vision, ear pain, ear discharge, nose pain, nose congestion, throat pain, throat swelling, mouth pain, mouth swelling, other Cardiovascular: Denies: no symptoms, chest pain, edema, irregular heart rate, lightheadedness, palpitations, syncope, other Respiratory: Denies: no symptoms, cough, orthopnea, shortness of breath, SOB with excertion, SOB at rest, sputum, stridor, wheezing, other Gastrointestinal/Abdominal: Denies: no symptoms, abdomen distended, abdominal pain, black stools, tarry stools, blood in stool, constipated, diarrhea, difficulty swallowing, nausea, poor appetite, poor fluid intake, rectal bleeding , vomiting, other Genitourinary: Denies: no symptoms, burning, discharge, frequency, flank pain, hematuria, incontinence, pain, urgency, other Neurologic/Psychiatric: Denies: no symptoms, anxiety, depressed, emotional problems, headache, numbness, paresthesia, pre-existing deficit, seizure, tingling, tremors, weakness, other Endocrine: Denies: no symptoms, excessive sweating, flushing, intolerance to cold, intolerance to heat, increased hunger, increased thirst, increased urine, unexplained weight gain, unexplained weight loss, other Hematologic/Lymphatic: Denies: no symptoms, anemia, easy bleeding, easy bruising, other Allergies: Coded Allergies: PENICILLINS (Unverified Allergy, Mild, 04/20/18) 04/20/18- Patient has been on pip-tazo for this admission since 04/15/18 as well as previous admission. Pt has Penicillin allergy on profile-unknown reactions. Mirza Gallo and Belgica French aware of allergy and are okay with continuing with pip-tazo. No reactions noted Subjective Pt resting in bed, nonverbal. No acute events. H/H stable. Colonoscopy showed diverticulosis. s/p thora Objective Last 24 Hour Vital Signs Date Time Temp Pulse Resp B/P (MAP) Pulse Ox O2 Delivery O2 Flow Rate FiO2 04/25/18 05:05 151/54 04/25/18 04:00 97.5 71 18 151/54 (86) 100 04/25/18 00:00 99.4 75 18 156/46 (82) 100 04/24/18 21:41 163/52 04/24/18 21:00 Nasal Cannula 2.0 04/24/18 20:00 99.2 79 19 163/52 (89) 98 04/24/18 17:54 130/72 04/24/18 17:19 130/72 04/24/18 16:08 96.4 68 18 130/72 (91) 100 04/24/18 12:00 99.5 78 16 153/56 (88) 100 04/24/18 11:05 154/54 04/24/18 09:00 Nasal Cannula 2.0 04/24/18 08:54 73 143/45 12/11/18 08:00 97.7 73 16 143/45 (77) 100 Intake and Output 04/24/18 04/25/18 19:00 07:00 Intake Total 730 ml 510 ml Output Total 500 ml 1500 ml Balance 230 ml -990 ml Intake Free Water 160 ml 70 ml Tube Feeding 570 ml 440 ml Output Urine Total 500 ml 1500 ml # Voids 2 # Bowel Movements 1 Laboratory Tests 04/24/18 07:30: Sodium Level 142, Potassium Level 5.9H, Chloride Level 108H, Carbon Dioxide Level 24, Anion Gap 10, Blood Urea Nitrogen 50H, Creatinine 2.1H, Estimat Glomerular Filtration Rate , Glucose Level 158H, Calcium Level 8.5, Phosphorus Level 6.6H, Magnesium Level 3.1H 04/24/18 09:45: White Blood Count 8.7, Red Blood Count 2.96L, Hemoglobin 8.4L, Hematocrit 26.7L , Mean Corpuscular Volume 90, Mean Corpuscular Hemoglobin 28.4, Mean Corpuscular Hemoglobin Concent 31.5L, Red Cell Distribution Width 14.1, Platelet Count 183, Mean Platelet Volume 8.2, Neutrophils (%) (Auto) 70.8, Lymphocytes (%) (Auto) 14.6L, Monocytes (%) (Auto) 8.5, Eosinophils (%) (Auto) 5.1H, Basophils (%) (Auto) 1.1 04/25/18 05:04: Sodium Level 144, Potassium Level 4.6, Chloride Level 109H, Carbon Dioxide Level 31, Anion Gap 4L, Blood Urea Nitrogen 51H, Creatinine 2.1H, Estimat Glomerular Filtration Rate , Glucose Level 162H, Calcium Level 8.8, Phosphorus Level 6.2H, Magnesium Level 3.0H, White Blood Count 8.2, Red Blood Count 2.82L, Hemoglobin 8.0L, Hematocrit 25.4L, Mean Corpuscular Volume 90, Mean Corpuscular Hemoglobin 28.5, Mean Corpuscular Hemoglobin Concent 31.6L, Red Cell Distribution Width 13.9, Platelet Count 202, Mean Platelet Volume 8.4, Neutrophils (%) (Auto) 69.2, Lymphocytes (%) (Auto) 15.9L, Monocytes (%) (Auto) 9.2, Eosinophils (%) (Auto) 4.4H, Basophils (%) (Auto) 1.2, Total Bilirubin 0.3 , Direct Bilirubin < 0.1, Aspartate Amino Transf (AST/SGOT) 16, Alanine Aminotransferase (ALT/SGPT) 14, Alkaline Phosphatase 140H, Total Protein 7.2, Albumin 2.3L Height (Feet): 5 Height (Inches): 3.00 Weight (Pounds): 170 Objective PHYSICAL EXAMINATION: VITAL SIGNS: Have been reviewed. HEAD AND NECK: Shows no jugular venous distention. LUNGS: Coarse rhonchi. CARDIOVASCULAR: Regular S1 and S2 with no gallop. ABDOMEN: Status post G-tube. EXTREMITIES: No pitting edema. Aleksandr Kern MD Apr 25, 2018 07:29
[2018-04-25 08:00] VITALS: BP 149/57
[2018-04-25] MEDS: Docusate 100mg/10ml Liq GT SCH ×2 (08:52→13:00)
[2018-04-25] MEDS: Heparin 5000 units/ml inj SUBQ SCH (08:54)
[2018-04-25] MEDS: Levemir Flexpen SUBQ SCH (08:55)
--- NOTE | 2018-04-25 11:47 | General Progress Note ---
Assessment/Plan Problem List: (1) Hypoglycemia ICD Codes: E16.2 - Hypoglycemia, unspecified SNOMED: 038872561 (2) CKD (chronic kidney disease) ICD Codes: N18.9 - Chronic kidney disease, unspecified SNOMED: 910665586 (3) Encephalopathy due to metabolic factor or toxin SNOMED: 024800246 (4) Hypertension ICD Codes: I10 - Essential (primary) hypertension SNOMED: 61476942 Assessment/Plan BG values are stable continue Levemir 8 units daily continue NISS every 6 hours Subjective ROS Limited/Unobtainable: Yes Allergies: Coded Allergies: PENICILLINS (Unverified Allergy, Mild, 04/20/18) 04/20/18- Patient has been on pip-tazo for this admission since 04/15/18 as well as previous admission. Pt has Penicillin allergy on profile-unknown reactions. Mirza Gallo and Belgica Padillaan aware of allergy and are okay with continuing with pip-tazo. No reactions noted Subjective events noted Objective Last 24 Hour Vital Signs Date Time Temp Pulse Resp B/P (MAP) Pulse Ox O2 Delivery O2 Flow Rate FiO2 04/25/18 08:53 73 149/57 04/25/18 08:00 97.8 73 18 149/57 (87) 99 04/25/18 05:05 151/54 04/25/18 04:00 97.5 71 18 151/54 (86) 100 04/25/18 00:00 99.4 75 18 156/46 (82) 100 04/24/18 21:41 163/52 04/24/18 21:00 Nasal Cannula 2.0 04/24/18 20:00 99.2 79 19 163/52 (89) 98 04/24/18 17:54 130/72 04/24/18 17:19 130/72 04/24/18 16:08 96.4 68 18 130/72 (91) 100 04/24/18 12:00 99.5 78 16 153/56 (88) 100 Intake and Output 04/24/18 04/25/18 19:00 07:00 Intake Total 730 ml 510 ml Output Total 500 ml 1500 ml Balance 230 ml -990 ml Intake Free Water 160 ml 70 ml Tube Feeding 570 ml 440 ml Output Urine Total 500 ml 1500 ml # Voids 2 # Bowel Movements 1 Laboratory Tests 04/25/18 05:04: White Blood Count 8.2, Red Blood Count 2.82L, Hemoglobin 8.0L, Hematocrit 25.4L , Mean Corpuscular Volume 90, Mean Corpuscular Hemoglobin 28.5, Mean Corpuscular Hemoglobin Concent 31.6L, Red Cell Distribution Width 13.9, Platelet Count 202, Mean Platelet Volume 8.4, Neutrophils (%) (Auto) 69.2, Lymphocytes (%) (Auto) 15.9L, Monocytes (%) (Auto) 9.2, Eosinophils (%) (Auto) 4.4H, Basophils (%) (Auto) 1.2, Sodium Level 144, Potassium Level 4.6, Chloride Level 109H, Carbon Dioxide Level 31, Anion Gap 4L, Blood Urea Nitrogen 51H, Creatinine 2.1H, Estimat Glomerular Filtration Rate , Glucose Level 162H, Calcium Level 8.8, Phosphorus Level 6.2H, Magnesium Level 3.0H, Total Bilirubin 0.3, Direct Bilirubin < 0.1, Aspartate Amino Transf (AST/SGOT) 16, Alanine Aminotransferase (ALT/SGPT) 14, Alkaline Phosphatase 140H, Total Protein 7.2, Albumin 2.3L Height (Feet): 5 Height (Inches): 3.00 Weight (Pounds): 170 General Appearance: no apparent distress Neck: normal alignment Cardiovascular: normal rate Respiratory/Chest: decreased breath sounds Abdomen: normal bowel sounds Pelvis: normal external exam Objective Current Medications Medications (Trade) Dose Ordered Sig/Gelacio Route PRN Reason Start Time Stop Time Status Last Admin Dose Admin Acetaminophen (Tylenol) 650 mg Q4H PRN RECTAL fever (temp>100.5F) 04/15/18 18:15 05/14/18 22:14 Albuterol/ Ipratropium (Albuterol/ Ipratropium) 3 ml Q4H PRN HHN Shortness of Breath 04/24/18 11:30 04/29/18 11:29 Amlodipine Besylate (Norvasc) 10 mg DAILY GT 04/19/18 09:00 05/17/18 08:59 04/25/18 08:53 Bisacodyl (Dulcolax) 10 mg DAILYPRN PRN RECTAL Constipation 04/15/18 16:15 05/14/18 16:14 Clonidine HCl (Catapres TTS-3) 1 patch QWEEK TDERMAL 04/17/18 16:00 05/17/18 15:59 04/24/18 17:54 Clonidine HCl (Catapres Tab) 0.1 mg Q4H PRN GT bp over 165 syst 04/18/18 15:00 05/16/18 07:59 Dextrose (Dextrose 50%) 25 ml Q30M PRN IV Hypoglycemia 04/15/18 16:30 05/15/18 16:16 Dextrose (Dextrose 50%) 50 ml Q30M PRN IV hypoglycemia 04/15/18 16:30 05/15/18 16:29 Diphenhydramine HCl (Benadryl) 25 mg Q6H PRN GT Itching/Pruritis 04/15/18 16:15 05/14/18 22:14 04/22/18 21:39 Docusate Sodium (Colace) 100 mg TID GT 04/16/18 13:00 05/15/18 08:59 04/25/18 08:52 Heparin Sodium (Porcine) (Heparin 5000 units/ml) 5,000 units EVERY 12 HOURS SUBQ 04/15/18 21:00 05/15/18 20:59 04/25/18 08:54 Hydralazine HCl (Apresoline) 50 mg Q6H GT 04/19/18 16:30 05/17/18 16:29 04/25/18 05:05 Insulin Aspart (NovoLOG) EVERY 6 HOURS SUBQ 04/15/18 18:00 05/15/18 07:59 04/25/18 05:07 Insulin Detemir (Levemir) 8 units DAILY SUBQ 04/21/18 10:30 05/21/18 10:29 04/25/18 08:55 Lansoprazole (Prevacid) 30 mg BID GT 04/18/18 18:00 05/18/18 17:59 04/25/18 08:53 Ondansetron HCl (Zofran) 4 mg Q6H PRN IVP Nausea & Vomiting 04/15/18 16:15 05/14/18 22:14 Item Value Date Time Bedside Blood Glucose 167 mg/dl H 04/25/18 0855 Bedside Blood Glucose 167 mg/dl H 04/25/18 0507 Bedside Blood Glucose 154 mg/dl H 04/24/18 2351 Bedside Blood Glucose 123 mg/dl H 04/24/18 1755 Bedside Blood Glucose 128 mg/dl H 04/24/18 1220 Bedside Blood Glucose 167 mg/dl H 04/24/18 0856 Bedside Blood Glucose 167 mg/dl H 04/24/18 0600 Awais Badillo MD Apr 25, 2018 11:47
[2018-04-25 12:00] VITALS: BP 162/63
--- NOTE | 2018-04-25 12:50 | Cardiac Electrophysiology PN ---
Assessment/Plan Assessment/Plan 1. Bradycardia with heart rate in the 50s. Resolved 2. Paroxysmal atrial fibrillation, off metoprolol for bradycardia 3. Hypertension on Norvasc 10 qd, Hydralazine 25 q6 hr, Clonidine patch and p.r.n. clonidine. 4. Dysphagia, status post PEG placement. 5. Large Right femoral AV fistula/ pseudoaneurysm. FU with Dr. Park and Dr. Chisholm. Thrombin injection after DC at [facility] per Dr Chisholm 6. Sacral decubitus ulcer on antibiotic. 7. Anemia, S/P colonoscopy by Dr Post 8. Pleural effusion. S/P Thoracentesis 04/23/18 KATE RN OK to DC Subjective Subjective Comfortable in NAD. DC planning in progress Objective Last 24 Hour Vital Signs Date Time Temp Pulse Resp B/P (MAP) Pulse Ox O2 Delivery O2 Flow Rate FiO2 04/25/18 12:11 162/63 04/25/18 12:00 96.5 87 17 162/63 (96) 100 04/25/18 08:53 73 149/57 04/25/18 08:00 97.8 73 18 149/57 (87) 99 04/25/18 05:05 151/54 04/25/18 04:00 97.5 71 18 151/54 (86) 100 04/25/18 00:00 99.4 75 18 156/46 (82) 100 04/24/18 21:41 163/52 04/24/18 21:00 Nasal Cannula 2.0 04/24/18 20:00 99.2 79 19 163/52 (89) 98 04/24/18 17:54 130/72 04/24/18 17:19 130/72 04/24/18 16:08 96.4 68 18 130/72 (91) 100 Intake and Output 04/24/18 04/25/18 19:00 07:00 Intake Total 730 ml 550 ml Output Total 500 ml 1500 ml Balance 230 ml -950 ml Intake Free Water 160 ml 70 ml Tube Feeding 570 ml 480 ml Output Urine Total 500 ml 1500 ml # Voids 2 # Bowel Movements 1 Laboratory Tests Test 04/25/18 05:04 White Blood Count 8.2 K/UL (4.8-10.8) Red Blood Count 2.82 M/UL (4.20-5.40) L Hemoglobin 8.0 G/DL (12.0-16.0) L Hematocrit 25.4 % (37.0-47.0) L Mean Corpuscular Volume 90 FL (80-99) Mean Corpuscular Hemoglobin 28.5 PG (27.0-31.0) Mean Corpuscular Hemoglobin Concent 31.6 G/DL (32.0-36.0) L Red Cell Distribution Width 13.9 % (11.6-14.8) Platelet Count 202 K/UL (150-450) Mean Platelet Volume 8.4 FL (6.5-10.1) Neutrophils (%) (Auto) 69.2 % (45.0-75.0) Lymphocytes (%) (Auto) 15.9 % (20.0-45.0) L Monocytes (%) (Auto) 9.2 % (1.0-10.0) Eosinophils (%) (Auto) 4.4 % (0.0-3.0) H Basophils (%) (Auto) 1.2 % (0.0-2.0) Sodium Level 144 MMOL/L (136-145) Potassium Level 4.6 MMOL/L (3.5-5.1) Chloride Level 109 MMOL/L (98-107) H Carbon Dioxide Level 31 MMOL/L (21-32) Anion Gap 4 mmol/L (5-15) L Blood Urea Nitrogen 51 mg/dL (7-18) H Creatinine 2.1 MG/DL (0.55-1.30) H Estimat Glomerular Filtration Rate mL/min (>60) Glucose Level 162 MG/DL (74-106) H Calcium Level 8.8 MG/DL (8.5-10.1) Phosphorus Level 6.2 MG/DL (2.5-4.9) H Magnesium Level 3.0 MG/DL (1.8-2.4) H Total Bilirubin 0.3 MG/DL (0.2-1.0) Direct Bilirubin < 0.1 MG/DL (0.0-0.3) Aspartate Amino Transf (AST/SGOT) 16 U/L (15-37) Alanine Aminotransferase (ALT/SGPT) 14 U/L (12-78) Alkaline Phosphatase 140 U/L (46-116) H Total Protein 7.2 G/DL (6.4-8.2) Albumin 2.3 G/DL (3.4-5.0) L Objective HEAD AND NECK: No JVD LUNGS: Coarse rhonchi. CARDIOVASCULAR: Regular S1 and S2 with no murmur. ABDOMEN: G-tube intact. EXTREMITIES: No pitting edema. Right femoral Mass/hematoma unchanged Everett Nair MD Apr 25, 2018 12:50
--- NOTE | 2018-04-25 12:50 | GI Progress Note ---
Assessment/Plan Problems: (1) Anemia ICD Codes: D64.9 - Anemia, unspecified SNOMED: 264217518 (2) Diabetic nephropathy ICD Codes: E11.21 - Type 2 diabetes mellitus with diabetic nephropathy SNOMED: 94272473, 631586401 (3) Hypoglycemia ICD Codes: E16.2 - Hypoglycemia, unspecified SNOMED: 276865234 (4) Mass of right thigh ICD Codes: R22.41 - Localized swelling, mass and lump, right lower limb SNOMED: 382955512 (5) PEG (percutaneous endoscopic gastrostomy) status ICD Codes: Z93.1 - Gastrostomy status SNOMED: 735712216, 405704493 Status: stable Status Narrative Discussed with Dr. Post. Assessment/Plan s/p colonoscopy>>> no rectal mass seen OB stool negative okay for DC per GI standpoint GTFs per RD to goal fu labs prn transfusions ppi The patient was seen and examined at bedside and all new and available data was reviewed in the patients chart. I agree with the above findings, impression and plan. (Patient seen earlier today. Signature stamp does not reflect patient encounter time.). - Ruben Post MD Subjective Subjective limited Objective Last 24 Hour Vital Signs Date Time Temp Pulse Resp B/P (MAP) Pulse Ox O2 Delivery O2 Flow Rate FiO2 04/25/18 12:11 162/63 04/25/18 12:00 96.5 87 17 162/63 (96) 100 04/25/18 08:53 73 149/57 04/25/18 08:00 97.8 73 18 149/57 (87) 99 04/25/18 05:05 151/54 04/25/18 04:00 97.5 71 18 151/54 (86) 100 04/25/18 00:00 99.4 75 18 156/46 (82) 100 04/24/18 21:41 163/52 04/24/18 21:00 Nasal Cannula 2.0 04/24/18 20:00 99.2 79 19 163/52 (89) 98 04/24/18 17:54 130/72 18 17:19 130/72 04/24/18 16:08 96.4 68 18 130/72 (91) 100 Intake and Output 04/24/18 04/25/18 19:00 07:00 Intake Total 730 ml 550 ml Output Total 500 ml 1500 ml Balance 230 ml -950 ml Intake Free Water 160 ml 70 ml Tube Feeding 570 ml 480 ml Output Urine Total 500 ml 1500 ml # Voids 2 # Bowel Movements 1 Laboratory Tests Test 04/25/18 05:04 White Blood Count 8.2 K/UL (4.8-10.8) Red Blood Count 2.82 M/UL (4.20-5.40) L Hemoglobin 8.0 G/DL (12.0-16.0) L Hematocrit 25.4 % (37.0-47.0) L Mean Corpuscular Volume 90 FL (80-99) Mean Corpuscular Hemoglobin 28.5 PG (27.0-31.0) Mean Corpuscular Hemoglobin Concent 31.6 G/DL (32.0-36.0) L Red Cell Distribution Width 13.9 % (11.6-14.8) Platelet Count 202 K/UL (150-450) Mean Platelet Volume 8.4 FL (6.5-10.1) Neutrophils (%) (Auto) 69.2 % (45.0-75.0) Lymphocytes (%) (Auto) 15.9 % (20.0-45.0) L Monocytes (%) (Auto) 9.2 % (1.0-10.0) Eosinophils (%) (Auto) 4.4 % (0.0-3.0) H Basophils (%) (Auto) 1.2 % (0.0-2.0) Sodium Level 144 MMOL/L (136-145) Potassium Level 4.6 MMOL/L (3.5-5.1) Chloride Level 109 MMOL/L (98-107) H Carbon Dioxide Level 31 MMOL/L (21-32) Anion Gap 4 mmol/L (5-15) L Blood Urea Nitrogen 51 mg/dL (7-18) H Creatinine 2.1 MG/DL (0.55-1.30) H Estimat Glomerular Filtration Rate mL/min (>60) Glucose Level 162 MG/DL (74-106) H Calcium Level 8.8 MG/DL (8.5-10.1) Phosphorus Level 6.2 MG/DL (2.5-4.9) H Magnesium Level 3.0 MG/DL (1.8-2.4) H Total Bilirubin 0.3 MG/DL (0.2-1.0) Direct Bilirubin < 0.1 MG/DL (0.0-0.3) Aspartate Amino Transf (AST/SGOT) 16 U/L (15-37) Alanine Aminotransferase (ALT/SGPT) 14 U/L (12-78) Alkaline Phosphatase 140 U/L (46-116) H Total Protein 7.2 G/DL (6.4-8.2) Albumin 2.3 G/DL (3.4-5.0) L Height (Feet): 5 Height (Inches): 3.00 Weight (Pounds): 170 General Appearance: no apparent distress, thin Cardiovascular: normal rate Respiratory/Chest: normal breath sounds, no respiratory distress Abdominal Exam: normal bowel sounds, non tender, soft Extremities: non-tender Loraine Wick NP Apr 25, 2018 12:50
--- NOTE | 2018-04-25 12:55 | Infectious Diseases Prog Note ---
Assessment/Plan Assessment/Plan A: 1. Sepsis/ Systemic inflammatory response syndrome with hypoglycemia, 2. pneumonia. treated 3. Diabetes mellitus. 4. Chronic kidney disease. 5. Anemia. 6. Seizure disorder. 7. 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 Diverticulosis & internal hemorrhoids 9. Pleural effusions, too small to drain P: Observe off of antibiotic wound care Agree with discharge Subjective ROS Limited/Unobtainable: Yes Allergies: Coded Allergies: PENICILLINS (Unverified Allergy, Mild, 04/20/18) 04/20/18- Patient has been on pip-tazo for this admission since 04/15/18 as well as previous admission. Pt has Penicillin allergy on profile-unknown reactions. Mirza Gallo and [place]gica Padillaan aware of allergy and are okay with continuing with pip-tazo. No reactions noted Objective Vital Signs Last 24 Hour Vital Signs Date Time Temp Pulse Resp B/P (MAP) Pulse Ox O2 Delivery O2 Flow Rate FiO2 04/25/18 12:11 162/63 04/25/18 12:00 96.5 87 17 162/63 (96) 100 04/25/18 08:53 73 149/57 04/25/18 08:00 97.8 73 18 149/57 (87) 99 04/25/18 05:05 151/54 04/25/18 04:00 97.5 71 18 151/54 (86) 100 04/25/18 00:00 99.4 75 18 156/46 (82) 100 04/24/18 21:41 163/52 04/24/18 21:00 Nasal Cannula 2.0 04/24/18 20:00 99.2 79 19 163/52 (89) 98 04/24/18 17:54 130/72 04/24/18 17:19 130/72 04/24/18 16:08 96.4 68 18 130/72 (91) 100 Height (Feet): 5 Height (Inches): 3.00 Weight (Pounds): 170 General Appearance: no acute distress HEENT: mucous membranes moist Respiratory/Chest: normal breath sounds Cardiovascular: normal rate Abdomen: soft, non tender, other - GT feeding Skin: ulcers Neurologic/Psychiatric: alert Laboratory Tests Test 04/25/18 05:04 White Blood Count 8.2 K/UL (4.8-10.8) Red Blood Count 2.82 M/UL (4.20-5.40) L Hemoglobin 8.0 G/DL (12.0-16.0) L Hematocrit 25.4 % (37.0-47.0) L Mean Corpuscular Volume 90 FL (80-99) Mean Corpuscular Hemoglobin 28.5 PG (27.0-31.0) Mean Corpuscular Hemoglobin Concent 31.6 G/DL (32.0-36.0) L Red Cell Distribution Width 13.9 % (11.6-14.8) Platelet Count 202 K/UL (150-450) Mean Platelet Volume 8.4 FL (6.5-10.1) Neutrophils (%) (Auto) 69.2 % (45.0-75.0) Lymphocytes (%) (Auto) 15.9 % (20.0-45.0) L Monocytes (%) (Auto) 9.2 % (1.0-10.0) Eosinophils (%) (Auto) 4.4 % (0.0-3.0) H Basophils (%) (Auto) 1.2 % (0.0-2.0) Sodium Level 144 MMOL/L (136-145) Potassium Level 4.6 MMOL/L (3.5-5.1) Chloride Level 109 MMOL/L (98-107) H Carbon Dioxide Level 31 MMOL/L (21-32) Anion Gap 4 mmol/L (5-15) L Blood Urea Nitrogen 51 mg/dL (7-18) H Creatinine 2.1 MG/DL (0.55-1.30) H Estimat Glomerular Filtration Rate mL/min (>60) Glucose Level 162 MG/DL (74-106) H Calcium Level 8.8 MG/DL (8.5-10.1) Phosphorus Level 6.2 MG/DL (2.5-4.9) H Magnesium Level 3.0 MG/DL (1.8-2.4) H Total Bilirubin 0.3 MG/DL (0.2-1.0) Direct Bilirubin < 0.1 MG/DL (0.0-0.3) Aspartate Amino Transf (AST/SGOT) 16 U/L (15-37) Alanine Aminotransferase (ALT/SGPT) 14 U/L (12-78) Alkaline Phosphatase 140 U/L (46-116) H Total Protein 7.2 G/DL (6.4-8.2) Albumin 2.3 G/DL (3.4-5.0) L Current Medications Medications (Trade) Dose Ordered Sig/Gelacio Route PRN Reason Start Time Stop Time Status Last Admin Dose Admin Acetaminophen (Tylenol) 650 mg Q4H PRN RECTAL fever (temp>100.5F) 04/15/18 18:15 05/14/18 22:14 Albuterol/ Ipratropium (Albuterol/ Ipratropium) 3 ml Q4H PRN HHN Shortness of Breath 04/24/18 11:30 04/29/18 11:29 Amlodipine Besylate (Norvasc) 10 mg DAILY GT 04/19/18 09:00 05/17/18 08:59 04/25/18 08:53 Bisacodyl (Dulcolax) 10 mg DAILYPRN PRN RECTAL Constipation 04/15/18 16:15 05/14/18 16:14 Clonidine HCl (Catapres TTS-3) 1 patch QWEEK TDERMAL 04/17/18 16:00 05/17/18 15:59 04/24/18 17:54 Clonidine HCl (Catapres Tab) 0.1 mg Q4H PRN GT bp over 165 syst 04/18/18 15:00 05/16/18 07:59 Dextrose (Dextrose 50%) 25 ml Q30M PRN IV Hypoglycemia 04/15/18 16:30 05/15/18 16:16 Dextrose (Dextrose 50%) 50 ml Q30M PRN IV hypoglycemia 04/15/18 16:30 05/15/18 16:29 Diphenhydramine HCl (Benadryl) 25 mg Q6H PRN GT Itching/Pruritis 04/15/18 16:15 05/14/18 22:14 04/22/18 21:39 Docusate Sodium (Colace) 100 mg TID GT 04/16/18 13:00 05/15/18 08:59 04/25/18 08:52 Heparin Sodium (Porcine) (Heparin 5000 units/ml) 5,000 units EVERY 12 HOURS SUBQ 04/15/18 21:00 05/15/18 20:59 04/25/18 08:54 Hydralazine HCl (Apresoline) 50 mg Q6H GT 04/19/18 16:30 05/17/18 16:29 04/25/18 12:11 Insulin Aspart (NovoLOG) EVERY 6 HOURS SUBQ 04/15/18 18:00 05/15/18 07:59 04/25/18 12:10 Insulin Detemir (Levemir) 8 units DAILY SUBQ 04/21/18 10:30 05/21/18 10:29 04/25/18 08:55 Lansoprazole (Prevacid) 30 mg BID GT 04/18/18 18:00 05/18/18 17:59 04/25/18 08:53 Ondansetron HCl (Zofran) 4 mg Q6H PRN IVP Nausea & Vomiting 04/15/18 16:15 05/14/18 22:14 Wilder French MD Apr 25, 2018 12:55
[2018-04-25 13:26] VITALS: BP 157/56
--- NOTE | 2018-04-25 13:56 | Nephrology Progress Note ---
Assessment/Plan Problem List: (1) Hypertension (2) MARK (acute kidney injury) (3) CKD (chronic kidney disease) (4) Diabetic nephropathy Assessment High K today acute on chronic renal failure: Dehydration HTN DM / Proteinuria / HypoAlbuminemia Encephalopathy due to metabolic factor or toxin Hypoglycemia Anemia Decubitus ulcer of sacral region, unstageable PEG (percutaneous endoscopic gastrostomy) status Plan DC Lisinopril more Kayexelate IV Bollous change feeding to Nephro BP meds- adjusted Monitor BS- Anemia conn avoid Nephrotoxics Monitor renal parameters per orders Subjective ROS Limited/Unobtainable: No Constitutional: Reports: malaise Objective Objective Last 24 Hour Vital Signs Date Time Temp Pulse Resp B/P (MAP) Pulse Ox O2 Delivery O2 Flow Rate FiO2 04/25/18 13:26 157/56 (89) 04/25/18 12:11 162/63 04/25/18 12:00 96.5 87 17 162/63 (96) 100 04/25/18 08:53 73 149/57 04/25/18 08:00 97.8 73 18 149/57 (87) 99 04/25/18 05:05 151/54 04/25/18 04:00 97.5 71 18 151/54 (86) 100 04/25/18 00:00 99.4 75 18 156/46 (82) 100 04/24/18 21:41 163/52 04/24/18 21:00 Nasal Cannula 2.0 04/24/18 20:00 99.2 79 19 163/52 (89) 98 04/24/18 17:54 130/72 04/24/18 17:19 130/72 04/24/18 16:08 96.4 68 18 130/72 (91) 100 Intake and Output 04/24/18 04/25/18 19:00 07:00 Intake Total 730 ml 550 ml Output Total 500 ml 1500 ml Balance 230 ml -950 ml Intake Free Water 160 ml 70 ml Tube Feeding 570 ml 480 ml Output Urine Total 500 ml 1500 ml # Voids 2 # Bowel Movements 1 Laboratory Tests 04/25/18 05:04: White Blood Count 8.2, Red Blood Count 2.82L, Hemoglobin 8.0L, Hematocrit 25.4L , Mean Corpuscular Volume 90, Mean Corpuscular Hemoglobin 28.5, Mean Corpuscular Hemoglobin Concent 31.6L, Red Cell Distribution Width 13.9, Platelet Count 202, Mean Platelet Volume 8.4, Neutrophils (%) (Auto) 69.2, Lymphocytes (%) (Auto) 15.9L, Monocytes (%) (Auto) 9.2, Eosinophils (%) (Auto) 4.4H, Basophils (%) (Auto) 1.2, Sodium Level 144, Potassium Level 4.6, Chloride Level 109H, Carbon Dioxide Level 31, Anion Gap 4L, Blood Urea Nitrogen 51H, Creatinine 2.1H, Estimat Glomerular Filtration Rate , Glucose Level 162H, Calcium Level 8.8, Phosphorus Level 6.2H, Magnesium Level 3.0H, Total Bilirubin 0.3, Direct Bilirubin < 0.1, Aspartate Amino Transf (AST/SGOT) 16, Alanine Aminotransferase (ALT/SGPT) 14, Alkaline Phosphatase 140H, Total Protein 7.2, Albumin 2.3L Height (Feet): 5 Height (Inches): 3.00 Weight (Pounds): 170 General Appearance: no apparent distress Cardiovascular: normal rate Respiratory/Chest: decreased breath sounds Abdomen: distended Objective no change Phil Ortiz MD Apr 25, 2018 13:56
--- NOTE | 2018-04-25 18:27 | Pulmonology Progress Note ---
Assessment/Plan Problems: (1) Pleural effusion (2) Lung nodule < 6cm on CT (3) Pneumonia (4) Encephalopathy due to metabolic factor or toxin (5) Decubitus ulcer of sacral region, unstageable (6) Hematoma (7) Hypoglycemia (8) Mass of right thigh (9) Abnormal LFTs (10) MARK (acute kidney injury) (11) CKD (chronic kidney disease) (12) Shock (13) Hypertension (14) Sepsis (15) Seizure disorder (16) Anemia (17) PEG (percutaneous endoscopic gastrostomy) status (18) [facility] resident (19) Rectal abnormality Assessment/Plan Insufficient fluid for thora CXR with CHF Optimize pulmonary hygiene/mobilize as tolerated PRN O2 PRN HHN's Observe off Abx F/U vascular and surgery recs Monitor electrolytes and renal function, F/U renal recs Wound care TF's DVT Px: Hep SQ DNAR/DNI, continue to discuss GOC, consider supportive care evaluation Subjective Allergies: Coded Allergies: PENICILLINS (Unverified Allergy, Mild, 04/20/18) 04/20/18- Patient has been on pip-tazo for this admission since 04/15/18 as well as previous admission. Pt has Penicillin allergy on profile-unknown reactions. Mirza Gallo and [place] French aware of allergy and are okay with continuing with pip-tazo. No reactions noted Subjective Late entry, seen this am, discharged sicne back to SNF [facility], O2 needs stable on 2L No distress, no cough, no FC, chet TF Objective Last 24 Hour Vital Signs Date Time Temp Pulse Resp B/P (MAP) Pulse Ox O2 Delivery O2 Flow Rate FiO2 04/25/18 13:26 157/56 (89) 18 12:11 162/63 04/25/18 12:00 96.5 87 17 162/63 (96) 100 04/25/18 08:53 73 149/57 04/25/18 08:00 97.8 73 18 149/57 (87) 99 04/25/18 05:05 151/54 04/25/18 04:00 97.5 71 18 151/54 (86) 100 04/25/18 00:00 99.4 75 18 156/46 (82) 100 04/24/18 21:41 163/52 04/24/18 21:00 Nasal Cannula 2.0 04/24/18 20:00 99.2 79 19 163/52 (89) 98 Intake and Output 04/24/18 04/25/18 19:00 07:00 Intake Total 730 ml 550 ml Output Total 500 ml 1500 ml Balance 230 ml -950 ml Intake Free Water 160 ml 70 ml Tube Feeding 570 ml 480 ml Output Urine Total 500 ml 1500 ml # Voids 2 # Bowel Movements 1 General Appearance: no acute distress, cachetic HEENT: normocephalic, atraumatic, anicteric, mucous membranes moist Respiratory/Chest: chest wall non-tender, lungs clear, normal breath sounds, no respiratory distress, no accessory muscle use Cardiovascular: normal peripheral pulses, normal rate, regular rhythm Abdomen: normal bowel sounds, soft, non tender, no organomegaly, non distended , no mass Extremities: no cyanosis, no clubbing, no edema Laboratory Tests 04/25/18 05:04: White Blood Count 8.2, Red Blood Count 2.82L, Hemoglobin 8.0L, Hematocrit 25.4L , Mean Corpuscular Volume 90, Mean Corpuscular Hemoglobin 28.5, Mean Corpuscular Hemoglobin Concent 31.6L, Red Cell Distribution Width 13.9, Platelet Count 202, Mean Platelet Volume 8.4, Neutrophils (%) (Auto) 69.2, Lymphocytes (%) (Auto) 15.9L, Monocytes (%) (Auto) 9.2, Eosinophils (%) (Auto) 4.4H, Basophils (%) (Auto) 1.2, Sodium Level 144, Potassium Level 4.6, Chloride Level 109H, Carbon Dioxide Level 31, Anion Gap 4L, Blood Urea Nitrogen 51H, Creatinine 2.1H, Estimat Glomerular Filtration Rate , Glucose Level 162H, Calcium Level 8.8, Phosphorus Level 6.2H, Magnesium Level 3.0H, Total Bilirubin 0.3, Direct Bilirubin < 0.1, Aspartate Amino Transf (AST/SGOT) 16, Alanine Aminotransferase (ALT/SGPT) 14, Alkaline Phosphatase 140H, Total Protein 7.2, Albumin 2.3L Javon Gan MD Apr 25, 2018 18:27
--- NOTE | 2018-04-25 18:38 | Vascular Surgery Progress Note ---
Subjective Subjective All noted No new complaints Awake but baseline confusion Objective Objective Last 24 Hour Vital Signs Date Time Temp Pulse Resp B/P (MAP) Pulse Ox O2 Delivery O2 Flow Rate FiO2 04/25/18 13:26 157/56 (89) 04/25/18 12:11 162/63 04/25/18 12:00 96.5 87 17 162/63 (96) 100 04/25/18 08:53 73 149/57 04/25/18 08:00 97.8 73 18 149/57 (87) 99 04/25/18 05:05 151/54 04/25/18 04:00 97.5 71 18 151/54 (86) 100 04/25/18 00:00 99.4 75 18 156/46 (82) 100 04/24/18 21:41 163/52 04/24/18 21:00 Nasal Cannula 2.0 04/24/18 20:00 99.2 79 19 163/52 (89) 98 Intake and Output 04/24/18 04/25/18 19:00 07:00 Intake Total 730 ml 550 ml Output Total 500 ml 1500 ml Balance 230 ml -950 ml Intake Free Water 160 ml 70 ml Tube Feeding 570 ml 480 ml Output Urine Total 500 ml 1500 ml # Voids 2 # Bowel Movements 1 Laboratory Tests Test 04/25/18 05:04 White Blood Count 8.2 K/UL (4.8-10.8) Red Blood Count 2.82 M/UL (4.20-5.40) L Hemoglobin 8.0 G/DL (12.0-16.0) L Hematocrit 25.4 % (37.0-47.0) L Mean Corpuscular Volume 90 FL (80-99) Mean Corpuscular Hemoglobin 28.5 PG (27.0-31.0) Mean Corpuscular Hemoglobin Concent 31.6 G/DL (32.0-36.0) L Red Cell Distribution Width 13.9 % (11.6-14.8) Platelet Count 202 K/UL (150-450) Mean Platelet Volume 8.4 FL (6.5-10.1) Neutrophils (%) (Auto) 69.2 % (45.0-75.0) Lymphocytes (%) (Auto) 15.9 % (20.0-45.0) L Monocytes (%) (Auto) 9.2 % (1.0-10.0) Eosinophils (%) (Auto) 4.4 % (0.0-3.0) H Basophils (%) (Auto) 1.2 % (0.0-2.0) Sodium Level 144 MMOL/L (136-145) Potassium Level 4.6 MMOL/L (3.5-5.1) Chloride Level 109 MMOL/L (98-107) H Carbon Dioxide Level 31 MMOL/L (21-32) Anion Gap 4 mmol/L (5-15) L Blood Urea Nitrogen 51 mg/dL (7-18) H Creatinine 2.1 MG/DL (0.55-1.30) H Estimat Glomerular Filtration Rate mL/min (>60) Glucose Level 162 MG/DL (74-106) H Calcium Level 8.8 MG/DL (8.5-10.1) Phosphorus Level 6.2 MG/DL (2.5-4.9) H Magnesium Level 3.0 MG/DL (1.8-2.4) H Total Bilirubin 0.3 MG/DL (0.2-1.0) Direct Bilirubin < 0.1 MG/DL (0.0-0.3) Aspartate Amino Transf (AST/SGOT) 16 U/L (15-37) Alanine Aminotransferase (ALT/SGPT) 14 U/L (12-78) Alkaline Phosphatase 140 U/L (46-116) H Total Protein 7.2 G/DL (6.4-8.2) Albumin 2.3 G/DL (3.4-5.0) L Height (Feet): 5 Height (Inches): 3.00 Weight (Pounds): 170 Objective cvs rrr lungs cta abd soft nontender right groin hematoma+ stable with bruit+ Feet warm intact dopplers No leg edema Assessment/Plan Assessment Larger right groin hematoma with pseudoaneurysm and avf from central groin line placement in the past Dementia Non ambulatory Hx of pneumonia DM Renal insufficiency Anemia Plan Ok for d/c planning Will schedule for outpatient repair of right femoral pseudoaneurysm Leg scds and off load legs with dvt precautions d/w pt's nurse at bedside d/w pmd Ronny Chisholm MD Apr 25, 2018 18:38
--- NOTE | 2018-04-26 13:24 | Discharge Summary ---
Discharge Summary Discharge Summary _ DATE OF ADMISSION: 04/14/2018 DATE OF DISCHARGE: 04/25/2018 DISCHARGED BY: Dr. Krzysztof Prabhakar CONSULTANTS: Dr. zhang Park BRIEF HOSPITAL COURSE: Patient is an 82-year-old female, who presented to ED after decreased blood sugar. Patient was noted to be somewhat more somnolent than usual. Patient was sent in from alf. Blood glucose was noted to be in the 20s initially. She has medical history significant for hypertension, diabetes mellitus, dysphagia on G-tube, chronic kidney failure, muscle weakness and encephalopathy. On evaluation at the ED, he was noted to be initially hypoxemic. She was started on dextrose containing fluids. Chest x-ray showed density on the mid lower lung which is likely related to pleural effusion versus infiltrate. Blood work was notable for increased BUN and creatinine consistent with renal insufficiency. Patient was admitted for evaluation of encephalopathy hypoglycemia. On admission, patient was noted to have a right groin mass. Surgery was called to evaluate. Mass on the right thigh, was likely hematoma. Likely from prior femoral line insertion given puncture site. There was no signs of infection. Was recommended warm compress. Venous duplex of the lower extremity showed a patent deep venous system bilaterally. There was an incidental finding of a large AV fistula noted in the right proximal thigh with hematoma. She was also noted to have resolving stage IV sacral decubitus ulcer. Patient was given wound care with frequent repositioning and offloading of sites. There was no signs of active infection on the wounds. She was started on Zosyn. She was given pulmonary treatments. Glucose was monitored. She was placed on insulin sliding scale. Function was monitored. Patient has acute on chronic renal failure. IV fluid was changed to half NS. Patient has anemia likely secondary to chronic disease. GI and admitting supervisor were consulted. On April 17, 2018, she underwent colonoscopy. Findings showed scattered diverticulosis and internal hemorrhoids. There was no evidence of rectal mass seen. She had bradycardia, heart rate in the 50s. She was transferred to telemetry. She was given Norvasc, hydralazine and clonidine patch for high blood pressure. Patient has paroxysmal atrial fibrillation, off any AV miguel angel blockers. Heart rate eventually improved. X-ray showed pleural effusion. Chest ultrasound showed small bilateral pleural effusion. Not enough fluid to perform therapeutic thoracentesis. Vascular surgeon was consulted patient had a pseudoaneurysm on the right thigh from central groin line placement in the past. She was given SCDs for DVT precautions. She was recommended outpatient repair of right femoral pseudoaneurysm. Wound culture did not isolate any growth. Influenza screen negative. Wound culture with Proteus and Klebsiella. He completed antibiotic treatment. He was eventually cleared for discharge to [facility]. FINAL DIAGNOSES: Sepsis/SIRS Pneumonia Pleural effusion Metabolic encephalopathy Sacral decubitus pressure ulcer stage IV, present on admission Hypoglycemia Acute on chronic renal failure Seizure disorder Anemia of chronic disease PEG status Hyperkalemia Diabetic nephropathy Hypertension Right thigh hematoma with central pseudoaneurysm and AV fistula senior care resident Bradycardia Paroxysmal atrial fibrillation, off AV miguel angel blockers Abnormal LFTs DISPOSITION: Patient was discharged to a SNF. DISCHARGE MEDICATIONS: Refer to Discharge Medication List. I have been assigned to dictate discharge summary on this account, and I was not involved in the patient's management. Ines Riley NP Apr 26, 2018 13:24
== END 2018-04-25 14:00 | DRG 871 ==
LOC: EDBD 18:22 → EMR 18:53 → 2W 20:02 → EDBEDREQSVC 20:08 → EDBEDREQ 20:35 → 4E 04-15 15:59
PROC: 0DJD8ZZ Inspection of Lower Intestinal Tract, Via Natural or Artificial Opening Endoscopic (ICD-10-PCS; principal; 2018-04-19)
DX: A41.9 Sepsis, unspecified organism (principal); L89.154 Pressure ulcer of sacral region, stage 4; J18.9 Pneumonia, unspecified organism; R65.21 Severe sepsis with septic shock; G93.41 Metabolic encephalopathy; N17.9 Acute kidney failure, unspecified; J44.0 Chronic obstructive pulmonary disease with (acute) lower respiratory infection; I97.638 Postprocedural hematoma of a circulatory system organ or structure following other circulatory system procedure; J90 Pleural effusion, not elsewhere classified; E11.649 Type 2 diabetes mellitus with hypoglycemia without coma; I12.9 Hypertensive chronic kidney disease with stage 1 through stage 4 chronic kidney disease, or unspecified chronic kidney disease; E11.22 Type 2 diabetes mellitus with diabetic chronic kidney disease; N18.9 Chronic kidney disease, unspecified; R00.1 Bradycardia, unspecified; Z86.718 Personal history of other venous thrombosis and embolism; F09 Unspecified mental disorder due to known physiological condition; F03.90 Unspecified dementia, unspecified severity, without behavioral disturbance, psychotic disturbance, mood disturbance, and anxiety; G40.909 Epilepsy, unspecified, not intractable, without status epilepticus; K21.9 Gastro-esophageal reflux disease without esophagitis; Z66 Do not resuscitate; Z93.1 Gastrostomy status; I72.4 Aneurysm of artery of lower extremity; D64.9 Anemia, unspecified; E86.0 Dehydration; R68.0 Hypothermia, not associated with low environmental temperature; R13.10 Dysphagia, unspecified; K57.30 Diverticulosis of large intestine without perforation or abscess without bleeding; K64.8 Other hemorrhoids; I77.0 Arteriovenous fistula, acquired; F32.9 Major depressive disorder, single episode, unspecified; E87.5 Hyperkalemia
CPT/HCPCS: 36415; 71045; 71250; 74176; 76604; 80048; 80053; 80061; 80076; 81003; 82270; 82378; 82550; 82553; 82607; 82728; 82746; 82962; 82977; 83036; 83540; 83550; 83605; 83690; 83735; 83880; 84100; 84443; 84484; 84550; 85007; 85025; 85610; 85730; 86140; 86710; 87040; 87070; 87081; 87181; 87205; 89050; 93306; 93925; 93926; 93970; 94003; 94150; 96361; 96365; 96366; 96367; 99285; J1815; S0077; S5561

== ENCOUNTER 2018-05-10 12:41 | Inpatient (IN) | payer MEDICARE ==
[~2018-05-10] VITALS: Ht 167.6 cm; Wt 77.1 kg
[~2018-05-10 12:41] MED LIST changes: +ARANESP40 MCG/1 M SUBQ; +CATAPRES0.1 MG ORAL; +CENTRUM MU9 MG/15 ML GT; +DOXAZOSIN MESYLA2 MG ORAL; +DUONEB 0.5-3(2.53 ML HHN; +FERROUS SU300 MG/5 M GT; +GLUCAGON HCL1 MG IJ; +HYDRALAZINE HCL25 M1 GT; +INSULIN CHARG5 UNITS SUBQ; +LEVETIRACETAM750 MG GT; +NIFEDIPINE ER60 M2 ORAL; +NITROGLYCERIN1 EACH TD; +PREVACID30 M2 GT; +SANTYL TOPIC; +VITAMIN C500 M1 GT; +ZINC GLUCONATE100 MG GT
[2018-05-10] MEDS ORDERED: Sodium Chloride 500ML 500 ML IV ONE ×2 (12:49→14:30)
[2018-05-10] MEDS ORDERED: NORVASC5 MG GT (12:50)
[2018-05-10 13:17] VITALS: BP 113/55
--- NOTE | 2018-05-10 13:31 | Emergency Room Report ---
History of Present Illness General Chief Complaint: Abnormal Labs Source: EMS Present Illness HPI Patient presents for elevated kidney function levels Patient has had nursing facility on ongoing antibiotics Kidney function is usually at 50 and 2.1 respectively however recent blood work reveals significantly elevated levels patient herself is somnolent not appropriately verbal History of present illness is significantly limited There was no reports of vomiting or diarrhea Allergies: Coded Allergies: PENICILLINS (Unverified Allergy, Mild, 04/20/18) 04/20/18- Patient has been on pip-tazo for this admission since 04/15/18 as well as previous admission. Pt has Penicillin allergy on profile-unknown reactions. Mirza Gallo and [place] French aware of allergy and are okay with continuing with pip-tazo. No reactions noted Patient History Limited by: medical condition Past Medical History: see triage record Pertinent Family History: unable to obtain Now: No Reviewed Nursing Documentation: PMH: Agreed; PSxH: Agreed Nursing Documentation-PMH Hx Cardiac Problems: Yes - hypokalemia, dehydration, hyperlipidemia Hx Hypertension: Yes Hx Diabetes: Yes - type 2 Hx Cancer: No Hx Gastrointestinal Problems: Yes - dysphagia, g-tube Hx Dialysis: No - chronic kidney failure Hx Neurological Problems: Yes - encephalopathy Hx Cerebrovascular Accident: No - legally blind Hx Dementia: Yes Hx Seizures: Yes Hx Weakness: Yes Review of Systems All Other Systems: limited - Other than the ones mentioned in the history of present illness all others are reviewed however they do stay limited due to the patient's mental status Physical Exam Vital Signs Date Time Temp Pulse Resp B/P (MAP) Pulse Ox O2 Delivery O2 Flow Rate FiO2 05/10/18 12:44 97.5 60 18 110/56 97 Nasal Cannula 2.0 Sp02 EP Interpretation: reviewed, normal General Appearance: no apparent distress Head: normocephalic, atraumatic Eyes: bilateral eye PERRL, bilateral eye EOMI ENT: normal pharynx Neck: supple Respiratory: lungs clear, no retraction, no accessory muscle use Cardiovascular #1: regular rate, rhythm Gastrointestinal: non tender, soft Musculoskeletal: other - Patient chronically debilitated Neurologic: responsive - To physical stimuli Skin: normal color, no rash Lymphatic: no adenopathy Medical Decision Making Diagnostic Impression: Primary Impression: Renal failure Additional Impression: Hyperkalemia ER Course Patient is a fairly complex patient with multiple differential to consideration including but not limited to cardiac cardiopulmonary and vascular emergencies Patient's blood work are review shows worsening kidney function Potassium level is also elevated Patient further hydrated Further acute intervention is performed and patient admitted for care Labs Test 05/10/18 13:01 White Blood Count 9.7 K/UL (4.8-10.8) Red Blood Count 3.18 M/UL (4.20-5.40) Hemoglobin 9.5 G/DL (12.0-16.0) Hematocrit 29.7 % (37.0-47.0) Mean Corpuscular Volume 93 FL (80-99) Mean Corpuscular Hemoglobin 29.9 PG (27.0-31.0) Mean Corpuscular Hemoglobin Concent 32.1 G/DL (32.0-36.0) Red Cell Distribution Width 13.7 % (11.6-14.8) Platelet Count 193 K/UL (150-450) Mean Platelet Volume 9.1 FL (6.5-10.1) Neutrophils (%) (Auto) 70.3 % (45.0-75.0) Lymphocytes (%) (Auto) 15.7 % (20.0-45.0) Monocytes (%) (Auto) 8.9 % (1.0-10.0) Eosinophils (%) (Auto) 4.0 % (0.0-3.0) Basophils (%) (Auto) 1.2 % (0.0-2.0) Sodium Level 134 MMOL/L (136-145) Potassium Level 5.2 MMOL/L (3.5-5.1) Chloride Level 100 MMOL/L (98-107) Carbon Dioxide Level 24 MMOL/L (21-32) Anion Gap 10 mmol/L (5-15) Blood Urea Nitrogen 153 mg/dL (7-18) Creatinine 3.9 MG/DL (0.55-1.30) Estimat Glomerular Filtration Rate mL/min (>60) Glucose Level 262 MG/DL (74-106) Calcium Level 8.8 MG/DL (8.5-10.1) Total Bilirubin 0.2 MG/DL (0.2-1.0) Aspartate Amino Transf (AST/SGOT) 23 U/L (15-37) Alanine Aminotransferase (ALT/SGPT) 25 U/L (12-78) Alkaline Phosphatase 138 U/L (46-116) Total Creatine Kinase 68 U/L (26-308) Creatine Kinase MB 1.0 NG/ML (0.0-3.6) Creatine Kinase MB Relative Index 1.4 Troponin I 0.037 ng/mL (0.000-0.056) Pro-B-Type Natriuretic Peptide 2269 pg/mL (0-125) Total Protein 6.5 G/DL (6.4-8.2) Albumin 2.0 G/DL (3.4-5.0) Globulin 4.5 g/dL Albumin/Globulin Ratio 0.4 (1.0-2.7) Lipase 244 U/L (73-393) Rhythm Strip Diag. Results EP Interpretation: yes Rate: 60 Rhythm: NSR, no PVC's, no ectopy Chest X-Ray Diagnostic Results Chest X-Ray Diagnostic Results : Chest X-Ray Ordered: Yes # of Views/Limited/Complete: 1 View Indication: Chest Pain EP Interpretation: Yes Interpretation: no consolidation, no effusion, no pneumothorax Impression: Other - Mild congestion Electronically Signed by: Krzysztof Hardy DO Last Vital Signs Date Time Temp Pulse Resp B/P (MAP) Pulse Ox O2 Delivery O2 Flow Rate FiO2 05/10/18 13:17 97.5 58 18 113/55 97 Nasal Cannula 2.0 Status: improved Disposition: ADMITTED INPATIENT Condition: Serious Krzysztof Hardy DO May 10, 2018 13:31
[2018-05-10 13:41] LABS: BASOPHILS % (AUTO) 1.2 % (0.0-2.0); HEMATOCRIT 29.7 % (37.0-47.0); HEMOGLOBIN 9.5 G/DL (12.0-16.0); LYMPHOCYTES % (AUTO) 15.7 % (20.0-45.0); MEAN CORPUSCULAR VOLUME 93 FL (80-99); MONOCYTES % (AUTO) 8.9 % (1.0-10.0); NEUTROPHILS % (AUTO) 70.3 % (45.0-75.0); PLATELET COUNT 193 K/UL (150-450); RED BLOOD COUNT 3.18 M/UL (4.20-5.40); RED CELL DISTRIBUTION WIDTH 13.7 % (11.6-14.8); WHITE BLOOD COUNT 9.7 K/UL (4.8-10.8)
[2018-05-10 13:53] LABS: ANION GAP 10 mmol/L (5-15); BLOOD UREA NITROGEN 153 mg/dL (7-18); CALCIUM 8.8 MG/DL (8.5-10.1); CARBON DIOXIDE 24 MMOL/L (21-32); CHLORIDE 100 MMOL/L (98-107); CREATININE 3.9 MG/DL (0.55-1.30); POTASSIUM 5.2 MMOL/L (3.5-5.1); SODIUM 134 MMOL/L (136-145)
--- NOTE | 2018-05-10 14:01 | Diagnostic Imaging Report ---
Indication: Dyspnea Comparison: 04/14/2018 A single view chest radiograph was obtained. Findings: Stable cardiomegaly. There is interstitial opacification/edema and patchy bibasilar airspace opacities. Likely small right pleural effusion. No definite pneumothorax. Atherosclerotic desiccation is noted in the aorta. There are degenerative changes in the spine. IMPRESSION: Cardiomegaly and findings suggestive of CHF/pulmonary edema. Superimposed infection should be excluded clinically.
[2018-05-10 14:02] LABS: ALANINE AMINOTRANSFERASE 25 U/L (12-78); ALBUMIN/GLOBULIN RATIO 0.4 (1.0-2.7); ALKALINE PHOSPHATASE 138 U/L (46-116); ASPARTATE AMINO TRANSFERASE 23 U/L (15-37); BILIRUBIN,TOTAL 0.2 MG/DL (0.2-1.0); CREATINE KINASE 68 U/L (26-308)
[2018-05-10 15:56] LABS: APPEARANCE,URINE VERY CLOUDY; BILIRUBIN, URINE NEGATIVE (NEGATIVE); COLOR,URINE YELLOW; GLUCOSE, URINE (UA) NEGATIVE (NEGATIVE); KETONES,URINE NEGATIVE (NEGATIVE); LEUKOCYTE ESTERASE ,URINE 3+ (NEGATIVE); NITRITE,URINE NEGATIVE (NEGATIVE); PH,URINE 5 (4.5-8.0); PROTEIN,URINE 4+ (NEGATIVE); UROBILINOGEN,URINE NORMAL MG/DL (0.0-1.0)
[2018-05-10] MEDS ORDERED: Sodium Polystyrene Sulfonate 15gm Powder GT ONE (17:45)
[2018-05-10] MEDS ORDERED: cefTRIAXone 1 GM in D5W 55 ML IVPB ONE (17:45)
[2018-05-10] MEDS ORDERED: ACETAMINOPHEN325 M1 GT (17:48)
[2018-05-10] MEDS ORDERED: CATAPRES0.1 MG GT (17:56)
[2018-05-10] MEDS ORDERED: ARANESP40 MCG/0.4 IM (18:01)
[2018-05-10] MEDS ORDERED: DOXAZOSIN MESYLA2 MG GT (18:13)
[2018-05-10] MEDS ORDERED: FERROUS SULFATE GT (18:24)
[2018-05-10] MEDS ORDERED: GABAPENTIN100 MG GT (18:31)
[2018-05-10] MEDS ORDERED: LEVETIRACE100 MG/1 M GT (18:44)
[2018-05-10] MEDS ORDERED: LOSARTAN POTASS25 MG GT (18:46)
[2018-05-10] MEDS: Pantoprazole Inj IVP SCH (20:36)
[2018-05-10 21:00] VITALS: BP 105/81
[2018-05-10] MEDS ORDERED: Albuterol/Ipratropium 3ml neb HHN PRN (21:00)
[2018-05-10 21:29] LABS: EOSINOPHILS % (AUTO) 1.9 % (0.0-3.0); HEMATOCRIT 27.2 % (37.0-47.0); HEMOGLOBIN 8.4 G/DL (12.0-16.0); LYMPHOCYTES % (AUTO) 12.1 % (20.0-45.0); MEAN CORPUSCULAR VOLUME 94 FL (80-99); MONOCYTES % (AUTO) 6.8 % (1.0-10.0); NEUTROPHILS % (AUTO) 78.1 % (45.0-75.0); PLATELET COUNT 188 K/UL (150-450); RED CELL DISTRIBUTION WIDTH 13.5 % (11.6-14.8); WHITE BLOOD COUNT 8.1 K/UL (4.8-10.8)
[2018-05-10] MEDS: Metoprolol Tartrate 50mg tab ORAL SCH (22:00)
[2018-05-11] VITALS: BP 126/55
[2018-05-11 04:00] VITALS: BP 136/60
[2018-05-11] MEDS: NovoLOG Insulin Flexpen SUBQ SCH ×4 (06:07→21:08)
[2018-05-11] MEDS: HydrALAZINE 25mg tab GT SCH ×3 (06:11→17:33)
[2018-05-11 08:00] VITALS: BP 112/64
[2018-05-11 08:40] LABS: BASOPHILS % (AUTO) 0.9 % (0.0-2.0); EOSINOPHILS % (AUTO) 2.8 % (0.0-3.0); HEMATOCRIT 28.6 % (37.0-47.0); HEMOGLOBIN 9.2 G/DL (12.0-16.0); LYMPHOCYTES % (AUTO) 13.4 % (20.0-45.0); MEAN CORPUSCULAR VOLUME 93 FL (80-99); MONOCYTES % (AUTO) 7.6 % (1.0-10.0); NEUTROPHILS % (AUTO) 75.3 % (45.0-75.0); PLATELET COUNT 193 K/UL (150-450); RED BLOOD COUNT 3.08 M/UL (4.20-5.40); RED CELL DISTRIBUTION WIDTH 13.7 % (11.6-14.8); WHITE BLOOD COUNT 10.2 K/UL (4.8-10.8)
[2018-05-11 08:51] LABS: AMMONIA 27 umol/L (11-32)
[2018-05-11] MEDS ORDERED: Losartan 25mg tab GT SCH (09:00)
[2018-05-11] MEDS: Metoprolol Tartrate 50mg tab ORAL SCH ×2 (09:00→21:06)
[2018-05-11] MEDS: Aspirin Baby 81mg GT SCH (09:01)
[2018-05-11] MEDS: levETIRAcetam 500mg/5ml Liquid GT SCH ×2 (09:01→17:33)
[2018-05-11] MEDS: Multivitamins W/Minerals 15 ML UDC GT SCH (09:01)
[2018-05-11] MEDS: Ascorbic Acid 500mg tab GT SCH ×2 (09:01→17:33)
[2018-05-11] MEDS: Nitroglycerin Patch 0.4mg TDERMAL SCH (09:02)
[2018-05-11] MEDS: Pantoprazole Inj IVP SCH ×2 (09:03→21:06)
[2018-05-11 09:17] LABS: ALANINE AMINOTRANSFERASE 20 U/L (12-78); ALBUMIN 2.1 G/DL (3.4-5.0); ALBUMIN/GLOBULIN RATIO 0.5 (1.0-2.7); ALKALINE PHOSPHATASE 130 U/L (46-116); ANION GAP 11 mmol/L (5-15); ASPARTATE AMINO TRANSFERASE 19 U/L (15-37); BILIRUBIN,TOTAL 0.2 MG/DL (0.2-1.0); BLOOD UREA NITROGEN 144 mg/dL (7-18); CALCIUM 8.4 MG/DL (8.5-10.1); CARBON DIOXIDE 24 MMOL/L (21-32); CHLORIDE 103 MMOL/L (98-107); CHOLESTEROL 139 MG/DL (< 200); CREATINE KINASE 95 U/L (26-308); FERRITIN 313 NG/ML (8-388); GAMMA GLUTAMYL TRANSPEPTIDASE 84 U/L (5-85); HDL CHOLESTEROL 48 MG/DL (40-60); SODIUM 138 MMOL/L (136-145); TRIGLYCERIDES 101 MG/DL (30-150)
[2018-05-11 09:47] LABS: % IRON SATURATION 36 % (15-50); IRON 48 ug/dL (50-175); TOTAL IRON BINDING CAPACITY 132 ug/dL (250-450)
--- NOTE | 2018-05-11 11:15 | Diagnostic Imaging Report ---
Indication: Post gastrostomy placement Technique: Supine view of the abdomen after injection of water-soluble contrast into gastrostomy Comparison: none Findings: Contrast opacifies the stomach. No contrast extravasation is demonstrated. The bowel gas pattern is unremarkable. Impression: Satisfactory position of gastrostomy tube This agrees with the preliminary interpretation provided overnight by [facility] teleradiology service.
--- NOTE | 2018-05-11 11:52 | Cardiac Electrophysiology PN ---
Subjective Subjective [id number] Objective Last 24 Hour Vital Signs Date Time Temp Pulse Resp B/P (MAP) Pulse Ox O2 Delivery O2 Flow Rate FiO2 05/11/18 09:02 112/64 05/11/18 09:01 112/64 05/11/18 09:01 65 112/64 05/11/18 09:00 65 112/64 05/11/18 09:00 Nasal Cannula 2.0 05/11/18 08:00 67 05/11/18 08:00 97.7 65 18 112/64 (80) 98 65 05/11/18 06:11 134/50 05/11/18 04:00 97.0 65 20 136/60 (85) 98 65 05/11/18 03:40 63 05/11/18 00:00 97.2 65 18 126/55 (78) 100 65 05/10/18 23:19 63 05/10/18 21:00 Nasal Cannula 2.0 05/10/18 21:00 98.2 65 20 105/81 (89) 99 65 05/10/18 20:55 Nasal Cannula 2.0 05/10/18 20:04 58 05/10/18 18:46 98.1 56 14 122/56 99 Nasal Cannula 2.0 05/10/18 13:17 97.5 58 18 113/55 97 Nasal Cannula 2.0 05/10/18 12:44 97.5 60 18 110/56 97 Nasal Cannula 2.0 Intake and Output 05/10/18 05/11/18 19:00 07:00 Output Total 250 ml Balance -250 ml Output Urine Total 250 ml # Bowel Movements 2 Laboratory Tests Test 05/10/18 13:00 05/10/18 13:01 05/10/18 15:09 05/10/18 21:10 C-Reactive Protein, Quantitative 9.5 mg/dL (0.00-0.90) H White Blood Count 9.7 K/UL (4.8-10.8) 8.1 K/UL (4.8-10.8) Red Blood Count 3.18 M/UL (4.20-5.40) L 2.90 M/UL (4.20-5.40) L Hemoglobin 9.5 G/DL (12.0-16.0) L 8.4 G/DL (12.0-16.0) L Hematocrit 29.7 % (37.0-47.0) L 27.2 % (37.0-47.0) L Mean Corpuscular Volume 93 FL (80-99) 94 FL (80-99) Mean Corpuscular Hemoglobin 29.9 PG (27.0-31.0) 29.0 PG (27.0-31.0) Mean Corpuscular Hemoglobin Concent 32.1 G/DL (32.0-36.0) 31.0 G/DL (32.0-36.0) L Red Cell Distribution Width 13.7 % (11.6-14.8) 13.5 % (11.6-14.8) Platelet Count 193 K/UL (150-450) 188 K/UL (150-450) Mean Platelet Volume 9.1 FL (6.5-10.1) 9.4 FL (6.5-10.1) Neutrophils (%) (Auto) 70.3 % (45.0-75.0) 78.1 % (45.0-75.0) H Lymphocytes (%) (Auto) 15.7 % (20.0-45.0) L 12.1 % (20.0-45.0) L Monocytes (%) (Auto) 8.9 % (1.0-10.0) 6.8 % (1.0-10.0) Eosinophils (%) (Auto) 4.0 % (0.0-3.0) H 1.9 % (0.0-3.0) Basophils (%) (Auto) 1.2 % (0.0-2.0) 1.0 % (0.0-2.0) Sodium Level 134 MMOL/L (136-145) L Potassium Level 5.2 MMOL/L (3.5-5.1) H Chloride Level 100 MMOL/L (98-107) Carbon Dioxide Level 24 MMOL/L (21-32) Anion Gap 10 mmol/L (5-15) Blood Urea Nitrogen 153 mg/dL (7-18) H Creatinine 3.9 MG/DL (0.55-1.30) H Estimat Glomerular Filtration Rate mL/min (>60) Glucose Level 262 MG/DL (74-106) H Calcium Level 8.8 MG/DL (8.5-10.1) Total Bilirubin 0.2 MG/DL (0.2-1.0) Aspartate Amino Transf (AST/SGOT) 23 U/L (15-37) Alanine Aminotransferase (ALT/SGPT) 25 U/L (12-78) Alkaline Phosphatase 138 U/L (46-116) H Total Creatine Kinase 68 U/L (26-308) Creatine Kinase MB 1.0 NG/ML (0.0-3.6) Creatine Kinase MB Relative Index 1.4 Troponin I 0.037 ng/mL (0.000-0.056) Pro-B-Type Natriuretic Peptide 2269 pg/mL (0-125) H 2206 pg/mL (0-125) H Total Protein 6.5 G/DL (6.4-8.2) Albumin 2.0 G/DL (3.4-5.0) L Globulin 4.5 g/dL Albumin/Globulin Ratio 0.4 (1.0-2.7) L Lipase 244 U/L (73-393) Urine Color Yellow Urine Appearance Very cloudy Urine pH 5 (4.5-8.0) Urine Specific Wade 1.010 (1.005-1.035) Urine Protein 4+ (NEGATIVE) H Urine Glucose (UA) Negative (NEGATIVE) Urine Ketones Negative (NEGATIVE) Urine Blood 2+ (NEGATIVE) H Urine Nitrite Negative (NEGATIVE) Urine Bilirubin Negative (NEGATIVE) Urine Urobilinogen Normal MG/DL (0.0-1.0) Urine Leukocyte Esterase 3+ (NEGATIVE) H Urine RBC 0-2 /HPF (0 - 2) Urine WBC Tntc /HPF (0 - 2) H Urine Squamous Epithelial Cells None /LPF (NONE/OCC) Urine Bacteria Few /HPF (NONE) Urine Yeast Moderate /HPF (NONE) H Test 05/11/18 07:15 White Blood Count 10.2 K/UL (4.8-10.8) Red Blood Count 3.08 M/UL (4.20-5.40) L Hemoglobin 9.2 G/DL (12.0-16.0) L Hematocrit 28.6 % (37.0-47.0) L Mean Corpuscular Volume 93 FL (80-99) Mean Corpuscular Hemoglobin 30.0 PG (27.0-31.0) Mean Corpuscular Hemoglobin Concent 32.3 G/DL (32.0-36.0) Red Cell Distribution Width 13.7 % (11.6-14.8) Platelet Count 193 K/UL (150-450) Mean Platelet Volume 8.4 FL (6.5-10.1) Neutrophils (%) (Auto) 75.3 % (45.0-75.0) H Lymphocytes (%) (Auto) 13.4 % (20.0-45.0) L Monocytes (%) (Auto) 7.6 % (1.0-10.0) Eosinophils (%) (Auto) 2.8 % (0.0-3.0) Basophils (%) (Auto) 0.9 % (0.0-2.0) Sodium Level 138 MMOL/L (136-145) Potassium Level 4.0 MMOL/L (3.5-5.1) Chloride Level 103 MMOL/L (98-107) Carbon Dioxide Level 24 MMOL/L (21-32) Anion Gap 11 mmol/L (5-15) Blood Urea Nitrogen 144 mg/dL (7-18) H Creatinine 4.0 MG/DL (0.55-1.30) H Estimat Glomerular Filtration Rate mL/min (>60) Glucose Level 164 MG/DL (74-106) H Hemoglobin A1c 6.6 % (4.3-6.0) H Uric Acid 7.0 MG/DL (2.6-7.2) Calcium Level 8.4 MG/DL (8.5-10.1) L Phosphorus Level 6.0 MG/DL (2.5-4.9) H Magnesium Level 4.2 MG/DL (1.8-2.4) H Iron Level 48 ug/dL (50-175) L Total Iron Binding Capacity 132 ug/dL (250-450) L Percent Iron Saturation 36 % (15-50) Unsaturated Iron Binding 84 ug/dL (112-346) L Ferritin 313 NG/ML (8-388) Total Bilirubin 0.2 MG/DL (0.2-1.0) Gamma Glutamyl Transpeptidase 84 U/L (5-85) Aspartate Amino Transf (AST/SGOT) 19 U/L (15-37) Alanine Aminotransferase (ALT/SGPT) 20 U/L (12-78) Alkaline Phosphatase 130 U/L (46-116) H Ammonia 27 umol/L (11-32) Total Creatine Kinase 95 U/L (26-308) Troponin I 0.025 ng/mL (0.000-0.056) Pro-B-Type Natriuretic Peptide 1953 pg/mL (0-125) H Total Protein 6.6 G/DL (6.4-8.2) Albumin 2.1 G/DL (3.4-5.0) L Globulin 4.5 g/dL Albumin/Globulin Ratio 0.5 (1.0-2.7) L Triglycerides Level 101 MG/DL (30-150) Cholesterol Level 139 MG/DL (< 200) LDL Cholesterol 86 mg/dL (<100) HDL Cholesterol 48 MG/DL (40-60) Cholesterol/HDL Ratio 2.9 (3.3-4.4) L Vitamin B12 Level 1811 PG/ML (193-986) H Folate 80.1 NG/ML (8.6-58.9) H Thyroid Stimulating Hormone (TSH) 1.143 uiU/mL (0.358-3.740) Microbiology Date/Time Source Procedure Growth Status 05/10/18 15:09 Urine,Clean Catch Urine Culture - Preliminary Resulted Everett Nair MD May 11, 2018 11:52
[2018-05-11 12:00] VITALS: BP 127/49
[2018-05-11] MEDS ORDERED: HydrALAZINE 50mg tab GT SCH (14:00)
--- NOTE | 2018-05-11 14:25 | Consultation ---
Consult Note Consult Note asked to eval for renal failure- Patient presents for elevated kidney function levels Patient has had nursing facility on ongoing antibiotics Kidney function is usually at 50 and 2.1 respectively however recent blood work reveals significantly elevated levels patient herself is somnolent not appropriately verbal History of present illness is significantly limited There was no reports of vomiting or diarrhea Allergies: PENICILLINS (Unverified Allergy, Mild, 12/04/12) Past Medical History: No History, Except For Hx Cardiac Problems: No - hypokalemia, dehydration, hyperlipidemia Hx Hypertension: Yes Hx Diabetes: Yes Hx Gastrointestinal Problems: No - dysphagia, g-tube Hx Dialysis: No - chronic kidney failure Hx Neurological Problems: No - muscle weakness, encephalopathy 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
[2018-05-11 16:00] VITALS: BP 135/53
--- NOTE | 2018-05-11 17:12 | Consultation ---
History of Present Illness General Date patient seen: May 11, 2018 Time patient seen: 17:08 Chief Complaint: Abnormal Labs Referring physician: Krzysztof Prabhakar MD & Aleksandr Kern Reason for Consultation: SOB Present Illness HPI 82 F NHR non-verbal, prior CVA, recent admission with sepsis, dysphagia S/P PEG BIB EMS with [facility] on CKD and inc O2 needs. She is currently AFVSS on 2L. She is non-verbal and unable to provide any history. Allergies: Coded Allergies: PENICILLINS (Unverified Allergy, Mild, 04/20/18) 04/20/18- Patient has been on pip-tazo for this admission since 04/15/18 as well as previous admission. Pt has Penicillin allergy on profile-unknown reactions. Mirza Gallo and Belgica Padillaan aware of allergy and are okay with continuing with pip-tazo. No reactions noted Medication History Scheduled Amino Acids/Protein Hydrolys (Pro-Stat Liquid), 30 ML GT DAILY, (Reported) Amlodipine Besylate (Norvasc), 5 MG GT DAILY, (Reported) Ascorbic Acid* (Vitamin C*), 500 MG GT TWICE A DAY, (Reported) Aspirin* (Aspir 81*), 81 MG GT DAILY, (Reported) Darbepoetin Homer in Polysorbat (Aranesp), 40 MCG IM Q MONDAY, (Reported) Doxazosin Mesylate (Doxazosin Mesylate), 2 MG GT TWICE A DAY, (Reported) Gabapentin* (Gabapentin*), 100 MG GT THREE TIMES A DAY, (Reported) Hydralazine Hcl* (Hydralazine Hcl*), 75 MG GT EVERY 6 HOURS, (Reported) Insulin Human NPH (Novolin N), 20 UNITS SUBQ Q12HR, (Reported) Lansoprazole* (Prevacid*), 30 MG GT Q12HR, (Reported) Levetiracetam* (Levetiracetam*), 750 MG GT BID, (Reported) Losartan Potassium* (Losartan Potassium*), 25 MG GT TWICE A DAY, (Reported) Metoprolol Tartrate* (Metoprolol Tartrate*), 50 MG ORAL EVERY 12 HOURS, ( Reported) Multivits W-Min/Ferrous Gluc (Centrum Multivit-Mineral Liq), 5 ML GT DAILY, ( Reported) Nifedipine* (Nifedipine Er*), 60 MG ORAL Q8HR, (Reported) Nitroglycerin (Nitroglycerin Patch), 0.4 MG TD DAILY, (Reported) Nut.tx.impaired Renal Fxn,Soy (Nepro Carb Steady), 45 ML GT DAILY, (Reported) Zinc Gluconate (Zinc Gluconate), 220 MG GT DAILY, (Reported) [Fe Sulfate 75MG/ML], 7.5 ML GT TID, (Reported) [Santyl ointment], 250 UNITS TOPIC DAILY, (Reported) Scheduled PRN Acetaminophen* (Acetaminophen 325MG Tablet*), 650 MG GT Q4H PRN for For Pain, ( Reported) Clonidine Hcl* (Catapres*), 0.1 MG GT EVERY 6 HOURS PRN for >HTN 160, (Reported) Glucagon HCl (Glucagon HCl), 1 MG IJ every 5 minutes x3 PRN for hypoglycemia, ( Reported) Insulin Lispro (Humalog), 0 SUBQ Q6HR PRN for Sliding Scale, (Reported) Ipratropium/Albuterol Sulfate (DuoNeb 0.5-3(2.5)mg/3ml), 3 ML HHN Q4HR PRN for Shortness of Breath, (Reported) Patient History Limited by: medical condition History Provided By: Family Member Healthcare decision maker grand-daughter @ bedside Resuscitation status DNAR Advanced Directive on File Yes Patient History Narrative KARRIE Past Medical/Surgical History Past Medical/Surgical History: (1) Anemia (2) Seizure disorder (3) Sepsis (4) Hypertension (5) Shock (6) CKD (chronic kidney disease) (7) Abnormal LFTs (8) Mass of right thigh (9) Decubitus ulcer of sacral region, unstageable (10) Encephalopathy due to metabolic factor or toxin (11) Pneumonia (12) Diabetic nephropathy (13) Pleural effusion (14) Rectal abnormality (15) Lung nodule < 6cm on CT (16) Major depression (17) Hyperkalemia (18) Renal failure (19) PEG (percutaneous endoscopic gastrostomy) status (20) jail resident Social History Social History: (1) jail resident Review of Systems ROS Narrative KARRIE Physical Exam General Appearance: cachetic, other - non-verbal Lines, tubes and drains: peripheral HEENT: normocephalic, atraumatic, anicteric, mucous membranes moist Neck: non-tender, normal alignment, supple, normal inspection Respiratory/Chest: chest wall non-tender, lungs clear, normal breath sounds, no respiratory distress, no accessory muscle use Cardiovascular/Chest: normal peripheral pulses, normal rate, regular rhythm Extremities: other - 1+ edema x 4 Last 24 Hour Vital Signs Date Time Temp Pulse Resp B/P (MAP) Pulse Ox O2 Delivery O2 Flow Rate FiO2 05/11/18 16:00 97.9 73 20 135/53 (80) 99 73 05/11/18 16:00 72 05/11/18 12:00 97.7 74 20 127/49 (75) 99 74 05/11/18 12:00 84 05/11/18 09:02 112/64 05/11/18 09:01 112/64 05/11/18 09:01 65 112/64 05/11/18 09:00 65 112/64 05/11/18 09:00 Nasal Cannula 2.0 05/11/18 08:00 67 05/11/18 08:00 97.7 65 18 112/64 (80) 98 65 05/11/18 06:11 134/50 05/11/18 04:00 97.0 65 20 136/60 (85) 98 65 05/11/18 03:40 63 05/11/18 00:00 97.2 65 18 126/55 (78) 100 65 05/10/18 23:19 63 05/10/18 21:00 Nasal Cannula 2.0 05/10/18 21:00 98.2 65 20 105/81 (89) 99 65 05/10/18 20:55 Nasal Cannula 2.0 05/10/18 20:04 58 05/10/18 18:46 98.1 56 14 122/56 99 Nasal Cannula 2.0 Intake and Output 05/10/18 05/11/18 19:00 07:00 Output Total 250 ml Balance -250 ml Output Urine Total 250 ml # Bowel Movements 2 Laboratory Tests Test 05/10/18 21:10 05/11/18 07:15 White Blood Count 8.1 K/UL (4.8-10.8) 10.2 K/UL (4.8-10.8) Red Blood Count 2.90 M/UL (4.20-5.40) L 3.08 M/UL (4.20-5.40) L Hemoglobin 8.4 G/DL (12.0-16.0) L 9.2 G/DL (12.0-16.0) L Hematocrit 27.2 % (37.0-47.0) L 28.6 % (37.0-47.0) L Mean Corpuscular Volume 94 FL (80-99) 93 FL (80-99) Mean Corpuscular Hemoglobin 29.0 PG (27.0-31.0) 30.0 PG (27.0-31.0) Mean Corpuscular Hemoglobin Concent 31.0 G/DL (32.0-36.0) L 32.3 G/DL (32.0-36.0) Red Cell Distribution Width 13.5 % (11.6-14.8) 13.7 % (11.6-14.8) Platelet Count 188 K/UL (150-450) 193 K/UL (150-450) Mean Platelet Volume 9.4 FL (6.5-10.1) 8.4 FL (6.5-10.1) Neutrophils (%) (Auto) 78.1 % (45.0-75.0) H 75.3 % (45.0-75.0) H Lymphocytes (%) (Auto) 12.1 % (20.0-45.0) L 13.4 % (20.0-45.0) L Monocytes (%) (Auto) 6.8 % (1.0-10.0) 7.6 % (1.0-10.0) Eosinophils (%) (Auto) 1.9 % (0.0-3.0) 2.8 % (0.0-3.0) Basophils (%) (Auto) 1.0 % (0.0-2.0) 0.9 % (0.0-2.0) Pro-B-Type Natriuretic Peptide 2206 pg/mL (0-125) H 1953 pg/mL (0-125) H Sodium Level 138 MMOL/L (136-145) Potassium Level 4.0 MMOL/L (3.5-5.1) Chloride Level 103 MMOL/L (98-107) Carbon Dioxide Level 24 MMOL/L (21-32) Anion Gap 11 mmol/L (5-15) Blood Urea Nitrogen 144 mg/dL (7-18) H Creatinine 4.0 MG/DL (0.55-1.30) H Estimat Glomerular Filtration Rate mL/min (>60) Glucose Level 164 MG/DL (74-106) H Hemoglobin A1c 6.6 % (4.3-6.0) H Uric Acid 7.0 MG/DL (2.6-7.2) Calcium Level 8.4 MG/DL (8.5-10.1) L Phosphorus Level 6.0 MG/DL (2.5-4.9) H Magnesium Level 4.2 MG/DL (1.8-2.4) H Iron Level 48 ug/dL (50-175) L Total Iron Binding Capacity 132 ug/dL (250-450) L Percent Iron Saturation 36 % (15-50) Unsaturated Iron Binding 84 ug/dL (112-346) L Ferritin 313 NG/ML (8-388) Total Bilirubin 0.2 MG/DL (0.2-1.0) Gamma Glutamyl Transpeptidase 84 U/L (5-85) Aspartate Amino Transf (AST/SGOT) 19 U/L (15-37) Alanine Aminotransferase (ALT/SGPT) 20 U/L (12-78) Alkaline Phosphatase 130 U/L (46-116) H Ammonia 27 umol/L (11-32) Total Creatine Kinase 95 U/L (26-308) Troponin I 0.025 ng/mL (0.000-0.056) Total Protein 6.6 G/DL (6.4-8.2) Albumin 2.1 G/DL (3.4-5.0) L Globulin 4.5 g/dL Albumin/Globulin Ratio 0.5 (1.0-2.7) L Triglycerides Level 101 MG/DL (30-150) Cholesterol Level 139 MG/DL (< 200) LDL Cholesterol 86 mg/dL (<100) HDL Cholesterol 48 MG/DL (40-60) Cholesterol/HDL Ratio 2.9 (3.3-4.4) L Vitamin B12 Level 1811 PG/ML (193-986) H Folate 80.1 NG/ML (8.6-58.9) H Thyroid Stimulating Hormone (TSH) 1.143 uiU/mL (0.358-3.740) Height (Feet): 5 Height (Inches): 6.00 Weight (Pounds): 170 Medications Current Medications Medications (Trade) Dose Ordered Sig/Gelacio Route PRN Reason Start Time Stop Time Status Last Admin Dose Admin Acetaminophen (Tylenol) 650 mg Q4H PRN ORAL For Pain 05/10/18 21:00 06/09/18 20:59 Albuterol/ Ipratropium (Albuterol/ Ipratropium) 3 ml Q4H PRN HHN Shortness of Breath 05/10/18 21:00 05/15/18 20:59 Amlodipine Besylate (Norvasc) 5 mg DAILY GT 05/12/18 09:00 06/10/18 08:59 Ascorbic Acid (Vitamin C) 500 mg TWICE A DAY GT 05/11/18 09:00 06/10/18 08:59 05/11/18 09:01 Aspirin (ASA) 81 mg DAILY GT 05/11/18 09:00 06/10/18 08:59 05/11/18 09:01 Clonidine HCl (Catapres Tab) 0.1 mg Q6H PRN GT >HTN 160 05/10/18 21:00 06/09/18 20:59 Dextrose (Dextrose 50%) 25 ml Q30M PRN IV Hypoglycemia 05/10/18 21:30 06/09/18 21:29 Dextrose (Dextrose 50%) 50 ml Q30M PRN IV Hypoglycemia 05/10/18 21:30 06/09/18 21:29 Epoetin Homer (Procrit (for non ESRD use)) 10,000 units MON-WED-FRI SUBQ 05/11/18 21:00 06/10/18 20:59 Gabapentin (Neurontin) 100 mg THREE TIMES A DAY GT 05/11/18 09:00 06/10/18 08:59 05/11/18 12:52 Hydralazine HCl (Apresoline) 25 mg EVERY 6 HOURS GT 05/11/18 18:00 06/10/18 00:00 Insulin Aspart (NovoLOG) BEFORE MEALS AND HS SUBQ 05/11/18 06:30 06/10/18 06:29 05/11/18 12:53 Levetiracetam (Keppra) 750 mg BID GT 05/11/18 09:00 06/10/18 08:59 05/11/18 09:01 Metoprolol Tartrate (Lopressor) 50 mg EVERY 12 HOURS ORAL 05/10/18 22:00 06/09/18 21:59 Multivitamins (Multivitamins W/ Minerals 15ml Liquid) 15 ml DAILY GT 05/11/18 09:00 06/10/18 08:59 05/11/18 09:01 Nitroglycerin (Ntg) 1 patch DAILY TDERMAL 05/11/18 09:00 06/10/18 08:59 05/11/18 09:02 Pantoprazole (Protonix) 40 mg EVERY 12 HOURS IVP 05/10/18 21:00 06/09/18 20:59 05/11/18 09:03 Sodium Chloride 1,000 ml @ 75 mls/hr [id number] IV 05/10/18 18:30 06/09/18 18:29 05/11/18 09:03 Assessment/Plan Assessment/Plan 82 F NHR non-verbal, prior CVA, recent admission with sepsis, dysphagia S/P PEG BIB EMS with MARK on CKD, likely dehydration. Optimize pulmonary hygiene/mobilize as tolerated PRN O2 PRN HHN's Observe off Abx Monitor electrolytes and renal function, IVF per renal Wound care TF's DVT Px: Hep SQ DNAR/DNI, continue to discuss GOC, consider supportive care evaluation Javon Gan MD May 11, 2018 17:12
--- NOTE | 2018-05-11 19:45 | Consultation ---
DATE OF CONSULTATION: 05/11/2018 NOTE: UNCLEAR AUDIO CONSULTING PHYSICIAN: Everett Nair M.D. REFERRING PHYSICIAN: Dr. Kern. REASON FOR CONSULTATION: Management of hypertension, atrial fibrillation, and congestive heart failure. HISTORY OF PRESENT ILLNESS: The patient is an 82-year-old lady with history of hypertension, paroxysmal atrial fibrillation, and history of bradycardia as well as congestive heart failure, who also has history of pleural effusion, status post thoracentesis on April 23, 2018. The patient also has right groin pseudoaneurysm and recently underwent the thrombin injection by Dr. Chisholm at [facility]. [facility] from [facility] as she had developed worsening of renal failure. The patient was admitted and Cardiology consultation was obtained for further evaluation and management. Her BUN was admission was 153 and creatinine was 3.9. REVIEW OF SYSTEMS: Cannot be obtained as the patient is nonverbal. PAST MEDICAL HISTORY: As mentioned above. FAMILY HISTORY: Noncontributory. SOCIAL HISTORY: She lives in a [facility]. Does not smoke or drink alcohol. PHYSICAL EXAMINATION: VITAL SIGNS: Show blood pressure of 112/64, pulse 65, respirations 18, and temperature 97.7. HEAD AND NECK: Shows no JVD. LUNGS: Coarse rhonchi. CARDIOVASCULAR: Shows regular S1 and S2 with no gallop or murmur. ABDOMEN: Soft with G-tube. EXTREMITIES: Right groin hematoma is stable. LABORATORY DATA: Her laboratories show white count of 12.2, hemoglobin 9.7, hematocrit 28.6, and platelets 193,000. Sodium 138, potassium 4.0. BUN of 144 and creatinine of 4.0. Glucose of 164. Hemoglobin A1c 6.6. Troponin is negative x2. BNP is 1953. ASSESSMENT AND PLAN: 1. Paroxysmal atrial fibrillation. The patient is currently in sinus rhythm. Continue metoprolol 50 mg b.i.d. At this time, the patient is off anticoagulation except for aspirin. 2. Hypertension, on Toprol 50 mg b.i.d. as well as Norvasc 5 mg daily. The patient is on losartan 25 mg b.i.d., that will be discontinued in view of the patient's acute renal failure. Change hydralazine to 100 mg 3 times daily. 3. Right femoral pseudoaneurysm, status post thrombin injection. 4. History of pleural effusion, status post thoracentesis. 5. Acute renal failure. Nephrology evaluation is pending. Losartan will be discontinued. 6. Dysphagia, status post PEG placement. 7. Dementia. Thank you very much for allowing me to participate in the care of this patient. Please do not hesitate to contact me for any questions regarding my evaluation. Everett Nair M.D. DR: ROBERT JOB#: [id number] CC:
[2018-05-11 20:00] VITALS: BP 143/55
--- NOTE | 2018-05-11 20:00 | Consultation ---
DATE OF CONSULTATION: 05/11/2018 CARDIOLOGY CONSULTATION CONSULTING PHYSICIAN: Everett Nair M.D. REFERRING PHYSICIAN: Krzysztof Schneider M.D. ADDITIONAL REFERRING PHYSICIAN: Dr. Kern. REASON FOR CONSULTATION: Management of hypertension, atrial fibrillation, and congestive heart failure. HISTORY OF PRESENT ILLNESS: The patient is an 82-year-old lady with history of hypertension, paroxysmal atrial fibrillation, and history of bradycardia as well as congestive heart failure, who also has history of pleural effusion, status post thoracentesis on April 23, 2018. The patient also has right groin pseudoaneurysm and recently underwent the thrombin injection by Dr. Chisholm at [facility]. [facility] as she had developed worsening of renal failure. The patient was admitted and Cardiology consultation was obtained for further evaluation and management. Her BUN was admission was 153 and creatinine was 3.9. REVIEW OF SYSTEMS: Cannot be obtained as the patient is nonverbal. PAST MEDICAL HISTORY: As mentioned above. FAMILY HISTORY: Noncontributory. SOCIAL HISTORY: She lives in a intermediate. Does not smoke or drink alcohol. PHYSICAL EXAMINATION: VITAL SIGNS: Show blood pressure of 112/64, pulse 65, respirations 18, and temperature 97.7. HEAD AND NECK: Shows no JVD. LUNGS: Coarse rhonchi. CARDIOVASCULAR: Shows regular S1 and S2 with no gallop or murmur. ABDOMEN: Soft with G-tube. EXTREMITIES: Right groin hematoma is stable. LABORATORY DATA: Her laboratories show white count of 12.2, hemoglobin 9.7, hematocrit 28.6, and platelets 193,000. Sodium 138, potassium 4.0. BUN of 144 and creatinine of 4.0. Glucose of 164. Hemoglobin A1c 6.6. Troponin is negative x2. BNP is 1953. ASSESSMENT AND PLAN: 1. Paroxysmal atrial fibrillation. The patient is currently in sinus rhythm. Continue metoprolol 50 mg b.i.d. At this time, the patient is off anticoagulation except for aspirin. 2. Hypertension, on Toprol 50 mg b.i.d. as well as Norvasc 5 mg daily. The patient is on losartan 25 mg b.i.d., that will be discontinued in view of the patient's acute renal failure. Change hydralazine to 100 mg 3 times daily. 3. Right femoral pseudoaneurysm, status post thrombin injection. 4. History of pleural effusion, status post thoracentesis. 5. Acute renal failure. Nephrology evaluation is pending. Losartan will be discontinued. 6. Dysphagia, status post PEG placement. 7. Dementia. Thank you very much for allowing me to participate in the care of this patient. Please do not hesitate to contact me for any questions regarding my evaluation. Everett Nair M.D. DR: ROBERT JOB#: [id number] CC:
--- NOTE | 2018-05-11 20:15 | History & Physical ---
History and Physical History & Physicial H&P Internal Med Covering for Dr. Schneider RFA: MARK DOS: 05/11/18 Present Illness HPI 82y old female known to prior hospitalizations, nonverbal, most of hx from emr Patient presents for elevated kidney function levels Patient has had nursing facility on ongoing antibiotics Kidney function is usually at 50 and 2.1 respectively however recent blood work reveals significantly elevated levels patient herself is somnolent not appropriately verbal History of present illness is significantly limited There was no reports of vomiting or diarrhea Allergies: Coded Allergies: PENICILLINS (Unverified Allergy, Mild, 04/20/18) 04/20/18- Patient has been on pip-tazo for this admission since 04/15/18 as well as previous admission. Pt has Penicillin allergy on profile-unknown reactions. Mirza Gallo and Belgica Padillaan aware of allergy and are okay with continuing with pip-tazo. 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 HEAD AND NECK: Shows no JVD. LUNGS: Coarse rhonchi. CARDIOVASCULAR: Shows regular S1 and S2 with no gallop or murmur. ABDOMEN: Soft with G-tube. EXTREMITIES: Right groin hematoma is stable. Labs Test 05/10/18 13:01 White Blood Count 9.7 K/UL (4.8-10.8) Red Blood Count 3.18 M/UL (4.20-5.40) Hemoglobin 9.5 G/DL (12.0-16.0) Hematocrit 29.7 % (37.0-47.0) Mean Corpuscular Volume 93 FL (80-99) Mean Corpuscular Hemoglobin 29.9 PG (27.0-31.0) Mean Corpuscular Hemoglobin Concent 32.1 G/DL (32.0-36.0) Red Cell Distribution Width 13.7 % (11.6-14.8) Platelet Count 193 K/UL (150-450) Mean Platelet Volume 9.1 FL (6.5-10.1) Neutrophils (%) (Auto) 70.3 % (45.0-75.0) Lymphocytes (%) (Auto) 15.7 % (20.0-45.0) Monocytes (%) (Auto) 8.9 % (1.0-10.0) Eosinophils (%) (Auto) 4.0 % (0.0-3.0) Basophils (%) (Auto) 1.2 % (0.0-2.0) Sodium Level 134 MMOL/L (136-145) Potassium Level 5.2 MMOL/L (3.5-5.1) Chloride Level 100 MMOL/L (98-107) Carbon Dioxide Level 24 MMOL/L (21-32) Anion Gap 10 mmol/L (5-15) Blood Urea Nitrogen 153 mg/dL (7-18) Creatinine 3.9 MG/DL (0.55-1.30) Estimat Glomerular Filtration Rate mL/min (>60) Glucose Level 262 MG/DL (74-106) Calcium Level 8.8 MG/DL (8.5-10.1) Total Bilirubin 0.2 MG/DL (0.2-1.0) Aspartate Amino Transf (AST/SGOT) 23 U/L (15-37) Alanine Aminotransferase (ALT/SGPT) 25 U/L (12-78) Alkaline Phosphatase 138 U/L (46-116) Total Creatine Kinase 68 U/L (26-308) Creatine Kinase MB 1.0 NG/ML (0.0-3.6) Creatine Kinase MB Relative Index 1.4 Troponin I 0.037 ng/mL (0.000-0.056) Pro-B-Type Natriuretic Peptide 2269 pg/mL (0-125) Total Protein 6.5 G/DL (6.4-8.2) Albumin 2.0 G/DL (3.4-5.0) Globulin 4.5 g/dL Albumin/Globulin Ratio 0.4 (1.0-2.7) Lipase 244 U/L (73-393) ASSESSMENT AND PLAN: # Acute kidney injury potentially medication v dehydration related --> losartan has been discontinued --> as per renal recs # Hypertension, on Toprol 50 mg b.i.d. as well as Norvasc 5 mg daily. --> bp better controlled as per cardiology --> meds adjusted # Right femoral pseudoaneurysm, status post thrombin injection. # History of pleural effusion, status post thoracentesis. # Paroxysmal atrial fibrillation. The patient is currently in sinus rhythm. --> Continue metoprolol 50 mg b.i.d. At this time, the patient is off anticoagulation except for aspirin. # Dysphagia, status post PEG placement. # Dementia. # DM / Proteinuria / HypoAlbuminemia # Encephalopathy due to metabolic factor or toxin # Hypoglycemia # Anemia # Decubitus ulcer of sacral region, unstageable Time of service does not reflect necessarily time of encounter. Aleksandr Kern MD May 11, 2018 20:15
[2018-05-11] MEDS: Epogen (for non ESRD use) SUBQ SCH (21:06)
[2018-05-12] VITALS: BP 160/98
[2018-05-12] MEDS: HydrALAZINE 25mg tab GT SCH ×4 (01:02→17:33)
[2018-05-12 04:00] VITALS: BP 152/59
[2018-05-12] MEDS: NovoLOG Insulin Flexpen SUBQ SCH ×3 (05:48→17:34)
[2018-05-12 06:56] LABS: BASOPHILS % (AUTO) 0.8 % (0.0-2.0); EOSINOPHILS % (AUTO) 2.7 % (0.0-3.0); HEMOGLOBIN 9.2 G/DL (12.0-16.0); LYMPHOCYTES % (AUTO) 9.5 % (20.0-45.0); MEAN CORPUSCULAR VOLUME 92 FL (80-99); MONOCYTES % (AUTO) 7.5 % (1.0-10.0); NEUTROPHILS % (AUTO) 79.4 % (45.0-75.0); PLATELET COUNT 193 K/UL (150-450); RED BLOOD COUNT 3.03 M/UL (4.20-5.40); RED CELL DISTRIBUTION WIDTH 13.4 % (11.6-14.8); WHITE BLOOD COUNT 12.4 K/UL (4.8-10.8)
[2018-05-12 07:45] LABS: ALANINE AMINOTRANSFERASE 20 U/L (12-78); ALBUMIN 2.1 G/DL (3.4-5.0); ALBUMIN/GLOBULIN RATIO 0.5 (1.0-2.7); ALKALINE PHOSPHATASE 143 U/L (46-116); ANION GAP 12 mmol/L (5-15); ASPARTATE AMINO TRANSFERASE 22 U/L (15-37); BILIRUBIN,TOTAL 0.2 MG/DL (0.2-1.0); BLOOD UREA NITROGEN 139 mg/dL (7-18); CALCIUM 8.2 MG/DL (8.5-10.1); CARBON DIOXIDE 25 MMOL/L (21-32); CHLORIDE 105 MMOL/L (98-107); CREATININE 3.9 MG/DL (0.55-1.30); PHOSPHORUS 6.7 MG/DL (2.5-4.9); POTASSIUM 3.8 MMOL/L (3.5-5.1); SODIUM 142 MMOL/L (136-145)
[2018-05-12 08:00] VITALS: BP 143/55
[2018-05-12] MEDS: Aspirin Baby 81mg GT SCH (09:19)
[2018-05-12] MEDS: Ascorbic Acid 500mg tab GT SCH ×2 (09:19→17:33)
[2018-05-12] MEDS: Renvela 800mg Pkt NG SCH ×3 (09:19→17:33)
[2018-05-12] MEDS: Pantoprazole Inj IVP SCH ×2 (09:20→20:38)
[2018-05-12] MEDS: Multivitamins W/Minerals 15 ML UDC GT SCH (09:20)
[2018-05-12] MEDS: levETIRAcetam 500mg/5ml Liquid GT SCH ×2 (09:20→17:33)
[2018-05-12] MEDS: Nitroglycerin Patch 0.4mg TDERMAL SCH (09:22)
[2018-05-12] MEDS: Metoprolol Tartrate 50mg tab ORAL SCH ×2 (09:23→20:40)
[2018-05-12 12:00] VITALS: BP 137/61
--- NOTE | 2018-05-12 14:10 | Nephrology Progress Note ---
Assessment/Plan Problem List: (1) MARK (acute kidney injury) (2) Anemia (3) Diabetic nephropathy Assessment acute on chronic renal failure: Dehydration DM / Proteinuria / HypoAlbuminemia Encephalopathy due to metabolic factor or toxin Hypoglycemia Anemia Decubitus ulcer of sacral region, unstageable PEG (percutaneous endoscopic gastrostomy) status Plan Hydrate- Monitor BS- Anemia conn avoid Nephrotoxics Monitor renal parameters Subjective ROS Limited/Unobtainable: No Constitutional: Reports: malaise, weakness Objective Objective Last 24 Hour Vital Signs Date Time Temp Pulse Resp B/P (MAP) Pulse Ox O2 Delivery O2 Flow Rate FiO2 05/12/18 12:40 137/61 05/12/18 12:00 98.5 63 19 137/61 (86) 99 63 05/12/18 12:00 67 05/12/18 09:23 70 180/72 05/12/18 09:23 70 180/72 05/12/18 09:22 180/72 05/12/18 09:00 Nasal Cannula 2.0 05/12/18 08:00 67 05/12/18 08:00 97.7 73 19 143/55 (84) 100 75 05/12/18 05:46 142/62 05/12/18 04:00 97.5 75 18 152/59 (90) 100 75 05/12/18 03:51 69 05/12/18 01:02 137/62 05/12/18 00:00 98.9 65 19 160/98 (118) 97 65 05/11/18 23:45 62 05/11/18 21:06 73 143/55 05/11/18 21:00 Nasal Cannula 2.0 05/11/18 20:00 97.7 73 19 143/55 (84) 100 73 05/11/18 19:02 68 05/11/18 17:33 135/53 05/11/18 16:00 97.9 73 20 135/53 (80) 99 73 05/11/18 16:00 72 Intake and Output 05/11/18 05/12/18 19:00 07:00 Intake Total 1475 ml 150 ml Output Total 400 ml 800 ml Balance 1075 ml -650 ml Intake Oral 35 ml Free Water 115 ml IV Total 750 ml 150 ml Tube Feeding 575 ml Output Urine Total 400 ml 800 ml # Bowel Movements 1 2 Laboratory Tests 05/12/18 05:35: White Blood Count 12.4H, Red Blood Count 3.03L, Hemoglobin 9.2L, Hematocrit 28.0L, Mean Corpuscular Volume 92, Mean Corpuscular Hemoglobin 30.3, Mean Corpuscular Hemoglobin Concent 32.7, Red Cell Distribution Width 13.4, Platelet Count 193, Mean Platelet Volume 8.8, Neutrophils (%) (Auto) 79.4H, Lymphocytes ( %) (Auto) 9.5L, Monocytes (%) (Auto) 7.5, Eosinophils (%) (Auto) 2.7, Basophils (%) (Auto) 0.8, Sodium Level 142, Potassium Level 3.8, Chloride Level 105, Carbon Dioxide Level 25, Anion Gap 12, Blood Urea Nitrogen 139H, Creatinine 3.9H , Estimat Glomerular Filtration Rate , Glucose Level 200H, Uric Acid 6.7, Calcium Level 8.2L, Phosphorus Level 6.7H, Magnesium Level 4.0H, Total Bilirubin 0.2, Aspartate Amino Transf (AST/SGOT) 22, Alanine Aminotransferase ( ALT/SGPT) 20, Alkaline Phosphatase 143H, C-Reactive Protein, Quantitative 14.3H , Pro-B-Type Natriuretic Peptide 2026H, Total Protein 6.7, Albumin 2.1L, Globulin 4.6, Albumin/Globulin Ratio 0.5L Height (Feet): 5 Height (Inches): 6.00 Weight (Pounds): 170 General Appearance: no apparent distress Cardiovascular: normal rate Respiratory/Chest: decreased breath sounds Abdomen: distended Phil Ortiz MD May 12, 2018 14:10
--- NOTE | 2018-05-12 14:17 | Cardiac Electrophysiology PN ---
Assessment/Plan Assessment/Plan 1. Paroxysmal atrial fibrillation, currently in sinus rhythm. Continue metoprolol 50 mg b.i.d. At this time off anticoagulation except for aspirin. 2. Hypertension, on Toprol 50 mg bid, Norvasc 5 mg daily and hydralazine 25 q6hr 3. Right femoral pseudoaneurysm, status post thrombin injection. 4. History of pleural effusion, status post thoracentesis. 5. Acute renal failure. 139/3.9. FU Dr. Ortiz 6. Dysphagia, status post PEG placement. 7. Dementia. DW RN Subjective Subjective Nonverbal with no events. G tube feeding on going. On NS 75cc/hr Objective Last 24 Hour Vital Signs Date Time Temp Pulse Resp B/P (MAP) Pulse Ox O2 Delivery O2 Flow Rate FiO2 05/12/18 12:40 137/61 05/12/18 12:00 98.5 63 19 137/61 (86) 99 63 05/12/18 12:00 67 05/12/18 09:23 70 180/72 05/12/18 09:23 70 180/72 05/12/18 09:22 180/72 05/12/18 09:00 Nasal Cannula 2.0 05/12/18 08:00 67 05/12/18 08:00 97.7 73 19 143/55 (84) 100 75 05/12/18 05:46 142/62 05/12/18 04:00 97.5 75 18 152/59 (90) 100 75 05/12/18 03:51 69 05/12/18 01:02 137/62 05/12/18 00:00 98.9 65 19 160/98 (118) 97 65 05/11/18 23:45 62 05/11/18 21:06 73 143/55 05/11/18 21:00 Nasal Cannula 2.0 05/11/18 20:00 97.7 73 19 143/55 (84) 100 73 05/11/18 19:02 68 05/11/18 17:33 135/53 05/11/18 16:00 97.9 73 20 135/53 (80) 99 73 05/11/18 16:00 72 Intake and Output 05/11/18 05/12/18 19:00 07:00 Intake Total 1475 ml 150 ml Output Total 400 ml 800 ml Balance 1075 ml -650 ml Intake Oral 35 ml Free Water 115 ml IV Total 750 ml 150 ml Tube Feeding 575 ml Output Urine Total 400 ml 800 ml # Bowel Movements 1 2 Laboratory Tests Test 05/12/18 05:35 White Blood Count 12.4 K/UL (4.8-10.8) H Red Blood Count 3.03 M/UL (4.20-5.40) L Hemoglobin 9.2 G/DL (12.0-16.0) L Hematocrit 28.0 % (37.0-47.0) L Mean Corpuscular Volume 92 FL (80-99) Mean Corpuscular Hemoglobin 30.3 PG (27.0-31.0) Mean Corpuscular Hemoglobin Concent 32.7 G/DL (32.0-36.0) Red Cell Distribution Width 13.4 % (11.6-14.8) Platelet Count 193 K/UL (150-450) Mean Platelet Volume 8.8 FL (6.5-10.1) Neutrophils (%) (Auto) 79.4 % (45.0-75.0) H Lymphocytes (%) (Auto) 9.5 % (20.0-45.0) L Monocytes (%) (Auto) 7.5 % (1.0-10.0) Eosinophils (%) (Auto) 2.7 % (0.0-3.0) Basophils (%) (Auto) 0.8 % (0.0-2.0) Sodium Level 142 MMOL/L (136-145) Potassium Level 3.8 MMOL/L (3.5-5.1) Chloride Level 105 MMOL/L (98-107) Carbon Dioxide Level 25 MMOL/L (21-32) Anion Gap 12 mmol/L (5-15) Blood Urea Nitrogen 139 mg/dL (7-18) H Creatinine 3.9 MG/DL (0.55-1.30) H Estimat Glomerular Filtration Rate mL/min (>60) Glucose Level 200 MG/DL (74-106) H Uric Acid 6.7 MG/DL (2.6-7.2) Calcium Level 8.2 MG/DL (8.5-10.1) L Phosphorus Level 6.7 MG/DL (2.5-4.9) H Magnesium Level 4.0 MG/DL (1.8-2.4) H Total Bilirubin 0.2 MG/DL (0.2-1.0) Aspartate Amino Transf (AST/SGOT) 22 U/L (15-37) Alanine Aminotransferase (ALT/SGPT) 20 U/L (12-78) Alkaline Phosphatase 143 U/L (46-116) H C-Reactive Protein, Quantitative 14.3 mg/dL (0.00-0.90) H Pro-B-Type Natriuretic Peptide 2026 pg/mL (0-125) H Total Protein 6.7 G/DL (6.4-8.2) Albumin 2.1 G/DL (3.4-5.0) L Globulin 4.6 g/dL Albumin/Globulin Ratio 0.5 (1.0-2.7) L Microbiology Date/Time Source Procedure Growth Status 05/10/18 15:09 Urine,Clean Catch Urine Culture - Final Ling Albicans Complete Objective HEAD AND NECK: No JVD. LUNGS: Coarse rhonchi. CARDIOVASCULAR: Regular S1 and S2 with no gallop or murmur. ABDOMEN: Soft with G-tube. EXTREMITIES: Right groin hematoma is stable. Sacral decubitus Everett Nair MD May 12, 2018 14:16
--- NOTE | 2018-05-12 14:18 | General Progress Note ---
Assessment/Plan Status: stable Assessment/Plan ASSESSMENT AND PLAN # Acute kidney injury potentially medication v dehydration related --> losartan has been discontinued --> as per renal recs # Hypertension, on Toprol 50 mg b.i.d. as well as Norvasc 5 mg daily. --> bp better controlled as per cardiology --> meds adjusted # Right femoral pseudoaneurysm, status post thrombin injection. # History of pleural effusion, status post thoracentesis. # Paroxysmal atrial fibrillation. The patient is currently in sinus rhythm. --> Continue metoprolol 50 mg b.i.d. At this time, the patient is off anticoagulation except for aspirin. # Dysphagia, status post PEG placement. # Dementia. # DM / Proteinuria / HypoAlbuminemia # Encephalopathy due to metabolic factor or toxin # Hypoglycemia # Anemia # Decubitus ulcer of sacral region, unstageable Time of service does not reflect necessarily time of encounter. Subjective Date patient seen: May 12, 2018 Allergies: Coded Allergies: PENICILLINS (Unverified Allergy, Mild, 04/20/18) 04/20/18- Patient has been on pip-tazo for this admission since 04/15/18 as well as previous admission. Pt has Penicillin allergy on profile-unknown reactions. Mirza Gallo and Belgica French aware of allergy and are okay with continuing with pip-tazo. No reactions noted All Systems: reviewed and negative except above Subjective Pt resting in bed. No acute events. VS stable. Objective Last 24 Hour Vital Signs Date Time Temp Pulse Resp B/P (MAP) Pulse Ox O2 Delivery O2 Flow Rate FiO2 05/12/18 12:40 137/61 05/12/18 12:00 98.5 63 19 137/61 (86) 99 63 05/12/18 12:00 67 05/12/18 09:23 70 180/72 05/12/18 09:23 70 180/72 05/12/18 09:22 180/72 05/12/18 09:00 Nasal Cannula 2.0 05/12/18 08:00 67 05/12/18 08:00 97.7 73 19 143/55 (84) 100 75 05/12/18 05:46 142/62 05/12/18 04:00 97.5 75 18 152/59 (90) 100 75 05/12/18 03:51 69 05/12/18 01:02 137/62 12/29/18 00:00 98.9 65 19 160/98 (118) 97 65 05/11/18 23:45 62 05/11/18 21:06 73 143/55 05/11/18 21:00 Nasal Cannula 2.0 05/11/18 20:00 97.7 73 19 143/55 (84) 100 73 05/11/18 19:02 68 05/11/18 17:33 135/53 05/11/18 16:00 97.9 73 20 135/53 (80) 99 73 05/11/18 16:00 72 Intake and Output 05/11/18 05/12/18 19:00 07:00 Intake Total 1475 ml 150 ml Output Total 400 ml 800 ml Balance 1075 ml -650 ml Intake Oral 35 ml Free Water 115 ml IV Total 750 ml 150 ml Tube Feeding 575 ml Output Urine Total 400 ml 800 ml # Bowel Movements 1 2 Laboratory Tests 05/12/18 05:35: White Blood Count 12.4H, Red Blood Count 3.03L, Hemoglobin 9.2L, Hematocrit 28.0L, Mean Corpuscular Volume 92, Mean Corpuscular Hemoglobin 30.3, Mean Corpuscular Hemoglobin Concent 32.7, Red Cell Distribution Width 13.4, Platelet Count 193, Mean Platelet Volume 8.8, Neutrophils (%) (Auto) 79.4H, Lymphocytes ( %) (Auto) 9.5L, Monocytes (%) (Auto) 7.5, Eosinophils (%) (Auto) 2.7, Basophils (%) (Auto) 0.8, Sodium Level 142, Potassium Level 3.8, Chloride Level 105, Carbon Dioxide Level 25, Anion Gap 12, Blood Urea Nitrogen 139H, Creatinine 3.9H , Estimat Glomerular Filtration Rate , Glucose Level 200H, Uric Acid 6.7, Calcium Level 8.2L, Phosphorus Level 6.7H, Magnesium Level 4.0H, Total Bilirubin 0.2, Aspartate Amino Transf (AST/SGOT) 22, Alanine Aminotransferase ( ALT/SGPT) 20, Alkaline Phosphatase 143H, C-Reactive Protein, Quantitative 14.3H , Pro-B-Type Natriuretic Peptide 2026H, Total Protein 6.7, Albumin 2.1L, Globulin 4.6, Albumin/Globulin Ratio 0.5L Height (Feet): 5 Height (Inches): 6.00 Weight (Pounds): 170 Objective PHYSICAL EXAMINATION: VITAL SIGNS: Have been reviewed. HEAD AND NECK: Shows no JVD. LUNGS: Coarse rhonchi. CARDIOVASCULAR: Shows regular S1 and S2 with no gallop or murmur. ABDOMEN: Soft with G-tube. EXTREMITIES: Right groin hematoma is stable. Aleksandr Kern MD May 12, 2018 14:18
[2018-05-12 16:00] VITALS: BP 140/85
--- NOTE | 2018-05-12 19:58 | Pulmonology Progress Note ---
Assessment/Plan Assessment/Plan 82 F NHR non-verbal, prior CVA, recent admission with sepsis, dysphagia S/P PEG BIB EMS with MARK on CKD, likely dehydration. Optimize pulmonary hygiene/mobilize as tolerated PRN O2 PRN HHN's Observe off Abx Monitor electrolytes and renal function, IVF per renal Wound care TF's DVT Px: Hep SQ DNAR/DNI, continue to discuss GOC, consider supportive care evaluation Subjective ROS Limited/Unobtainable: Yes Allergies: Coded Allergies: PENICILLINS (Unverified Allergy, Mild, 04/20/18) 04/20/18- Patient has been on pip-tazo for this admission since 04/15/18 as well as previous admission. Pt has Penicillin allergy on profile-unknown reactions. Mirza Gallo and Belgica French aware of allergy and are okay with continuing with pip-tazo. No reactions noted Subjective obtuned no distress toelrating tf no reports of pain not getting oob on o2 Objective Last 24 Hour Vital Signs Date Time Temp Pulse Resp B/P (MAP) Pulse Ox O2 Delivery O2 Flow Rate FiO2 05/12/18 17:33 140/85 05/12/18 16:00 98.5 89 24 140/85 (103) 100 89 05/12/18 16:00 94 05/12/18 15:37 75 22 100 Nasal Cannula 2.0 05/12/18 15:30 77 20 99 Nasal Cannula 2.0 28 05/12/18 15:30 77 Nasal Cannula 2.0 28 05/12/18 12:40 137/61 05/12/18 12:00 98.5 63 19 137/61 (86) 99 63 05/12/18 12:00 67 05/12/18 09:23 70 180/72 05/12/18 09:23 70 180/72 05/12/18 09:22 180/72 05/12/18 09:00 Nasal Cannula 2.0 05/12/18 08:00 67 05/12/18 08:00 97.7 73 19 143/55 (84) 100 75 05/12/18 05:46 142/62 05/12/18 04:00 97.5 75 18 152/59 (90) 100 75 05/12/18 03:51 69 05/12/18 01:02 137/62 05/12/18 00:00 98.9 65 19 160/98 (118) 97 65 05/11/18 23:45 62 05/11/18 21:06 73 143/55 05/11/18 21:00 Nasal Cannula 2.0 05/11/18 20:00 97.7 73 19 143/55 (84) 100 73 Intake and Output 05/11/18 05/12/18 19:00 07:00 Intake Total 1475 ml 150 ml Output Total 400 ml 800 ml Balance 1075 ml -650 ml Intake Oral 35 ml Free Water 115 ml IV Total 750 ml 150 ml Tube Feeding 575 ml Output Urine Total 400 ml 800 ml # Bowel Movements 1 2 General Appearance: WD/WN Respiratory/Chest: rhonchi Cardiovascular: normal rate, regular rhythm, murmur systolic Abdomen: soft, non tender, no organomegaly Skin: no lesions Neurologic/Psychiatric: disoriented, unresponsiveness Microbiology Date/Time Source Procedure Growth Status 05/10/18 15:09 Urine,Clean Catch Urine Culture - Final Ling Albicans Complete Laboratory Tests 05/12/18 05:35: White Blood Count 12.4H, Red Blood Count 3.03L, Hemoglobin 9.2L, Hematocrit 28.0L, Mean Corpuscular Volume 92, Mean Corpuscular Hemoglobin 30.3, Mean Corpuscular Hemoglobin Concent 32.7, Red Cell Distribution Width 13.4, Platelet Count 193, Mean Platelet Volume 8.8, Neutrophils (%) (Auto) 79.4H, Lymphocytes ( %) (Auto) 9.5L, Monocytes (%) (Auto) 7.5, Eosinophils (%) (Auto) 2.7, Basophils (%) (Auto) 0.8, Sodium Level 142, Potassium Level 3.8, Chloride Level 105, Carbon Dioxide Level 25, Anion Gap 12, Blood Urea Nitrogen 139H, Creatinine 3.9H , Estimat Glomerular Filtration Rate , Glucose Level 200H, Uric Acid 6.7, Calcium Level 8.2L, Phosphorus Level 6.7H, Magnesium Level 4.0H, Total Bilirubin 0.2, Aspartate Amino Transf (AST/SGOT) 22, Alanine Aminotransferase ( ALT/SGPT) 20, Alkaline Phosphatase 143H, C-Reactive Protein, Quantitative 14.3H , Pro-B-Type Natriuretic Peptide 2026H, Total Protein 6.7, Albumin 2.1L, Globulin 4.6, Albumin/Globulin Ratio 0.5L Current Medications Medications (Trade) Dose Ordered Sig/Gelacio Route PRN Reason Start Time Stop Time Status Last Admin Dose Admin Acetaminophen (Tylenol) 650 mg Q4H PRN ORAL For Pain 05/10/18 21:00 06/09/18 20:59 Albuterol/ Ipratropium (Albuterol/ Ipratropium) 3 ml Q4H PRN HHN Shortness of Breath 05/10/18 21:00 05/15/18 20:59 05/12/18 15:28 Amlodipine Besylate (Norvasc) 5 mg DAILY GT 05/12/18 09:00 06/10/18 08:59 05/12/18 09:23 Ascorbic Acid (Vitamin C) 500 mg TWICE A DAY GT 05/11/18 09:00 06/10/18 08:59 05/12/18 17:33 Aspirin (ASA) 81 mg DAILY GT 05/11/18 09:00 06/10/18 08:59 05/12/18 09:19 Clonidine HCl (Catapres Tab) 0.1 mg Q6H PRN GT >HTN 160 05/10/18 21:00 06/09/18 20:59 Dextrose (Dextrose 50%) 25 ml Q30M PRN IV Hypoglycemia 05/10/18 21:30 06/09/18 21:29 Dextrose (Dextrose 50%) 50 ml Q30M PRN IV Hypoglycemia 05/10/18 21:30 06/09/18 21:29 Epoetin Homer (Procrit (for non ESRD use)) 10,000 units MON-MON-MON SUBQ 05/11/18 21:00 06/10/18 20:59 05/11/18 21:06 Gabapentin (Neurontin) 100 mg THREE TIMES A DAY GT 05/11/18 09:00 06/10/18 08:59 05/12/18 17:33 Hydralazine HCl (Apresoline) 25 mg EVERY 6 HOURS GT 05/11/18 18:00 06/10/18 00:00 05/12/18 17:33 Insulin Aspart (NovoLOG) Q6HR SUBQ 05/12/18 06:00 06/10/18 06:29 05/12/18 17:34 Levetiracetam (Keppra) 750 mg BID GT 05/11/18 09:00 06/10/18 08:59 05/12/18 17:33 Metoprolol Tartrate (Lopressor) 50 mg EVERY 12 HOURS ORAL 05/10/18 22:00 06/09/18 21:59 05/12/18 09:23 Multivitamins (Multivitamins W/ Minerals 15ml Liquid) 15 ml DAILY GT 05/11/18 09:00 06/10/18 08:59 05/12/18 09:20 Nitroglycerin (Ntg) 1 patch DAILY TDERMAL 05/11/18 09:00 06/10/18 08:59 05/12/18 09:22 Pantoprazole (Protonix) 40 mg EVERY 12 HOURS IVP 05/10/18 21:00 06/09/18 20:59 05/12/18 09:20 Sevelamer Carbonate (Renvela) 800 mg THREE TIMES A DAY NG 05/12/18 09:00 06/11/18 08:59 05/12/18 17:33 Sodium Chloride 1,000 ml @ 75 mls/hr [id number] IV 05/10/18 18:30 06/09/18 18:29 05/12/18 11:30 Misty Lamb DO May 12, 2018 19:58
[2018-05-12 20:00] VITALS: BP 169/72
[2018-05-13] VITALS (7 sets, daily range): BP systolic 155–182; BP diastolic 63–101
[2018-05-13] MEDS: HydrALAZINE 25mg tab GT SCH ×4 (00:14→17:33)
[2018-05-13] MEDS: NovoLOG Insulin Flexpen SUBQ SCH ×4 (00:18→17:40)
[2018-05-13] MEDS: levETIRAcetam 500mg/5ml Liquid GT SCH ×2 (09:23→17:34)
[2018-05-13] MEDS: Pantoprazole Inj IVP SCH ×2 (09:24→21:55)
[2018-05-13] MEDS: Multivitamins W/Minerals 15 ML UDC GT SCH (09:24)
[2018-05-13] MEDS: Aspirin Baby 81mg GT SCH (09:24)
[2018-05-13] MEDS: Ascorbic Acid 500mg tab GT SCH ×2 (09:25→17:33)
[2018-05-13] MEDS: Renvela 800mg Pkt NG SCH ×3 (09:25→17:33)
[2018-05-13] MEDS: Metoprolol Tartrate 50mg tab ORAL SCH ×2 (09:29→21:56)
[2018-05-13] MEDS: Nitroglycerin Patch 0.4mg TDERMAL SCH (09:30)
--- NOTE | 2018-05-13 11:04 | Nephrology Progress Note ---
Assessment/Plan Problem List: (1) MARK (acute kidney injury) (2) Anemia (3) Diabetic nephropathy Assessment acute on chronic renal failure: Dehydration DM / Proteinuria / HypoAlbuminemia Encephalopathy due to metabolic factor or toxin Hypoglycemia Anemia Decubitus ulcer of sacral region, unstageable PEG (percutaneous endoscopic gastrostomy) status Plan no labs today Hydrate- Monitor BS- Anemia conn avoid Nephrotoxics Monitor renal parameters Subjective ROS Limited/Unobtainable: No Constitutional: Reports: malaise Objective Objective Last 24 Hour Vital Signs Date Time Temp Pulse Resp B/P (MAP) Pulse Ox O2 Delivery O2 Flow Rate FiO2 05/13/18 09:30 167/101 05/13/18 09:29 78 167/101 05/13/18 09:25 78 167/101 05/13/18 09:00 Nasal Cannula 2.0 05/13/18 08:00 76 05/13/18 08:00 98.8 78 21 167/101 (123) 95 78 05/13/18 05:37 179/66 05/13/18 04:00 99.7 83 20 182/68 (106) 95 83 05/13/18 03:38 82 05/13/18 01:00 163/71 (101) 05/13/18 00:14 149/68 05/13/18 00:00 99.5 73 20 172/63 (99) 96 73 05/12/18 23:29 73 05/12/18 21:52 97 Nasal Cannula 2.0 05/12/18 21:00 Nasal Cannula 2.0 05/12/18 20:40 90 169/72 05/12/18 20:00 98.6 90 20 169/72 (104) 94 90 05/12/18 19:45 91 05/12/18 17:33 140/85 05/12/18 16:00 98.5 89 24 140/85 (103) 100 89 05/12/18 16:00 94 05/12/18 15:37 75 22 100 Nasal Cannula 2.0 05/12/18 15:30 77 20 99 Nasal Cannula 2.0 05/12/18 15:30 77 Nasal Cannula 2.0 28 05/12/18 12:40 137/61 05/12/18 12:00 98.5 63 19 137/61 (86) 99 63 05/12/18 12:00 67 Intake and Output 12/29/18 12/30/18 19:00 07:00 Intake Total 1125 ml 251.25 ml Output Total 650 ml Balance 1125 ml -398.75 ml Free Water 180 ml IV Total 206.25 ml Tube Feeding 945 ml 45 ml Output Urine Total 650 ml # Bowel Movements 1 2 Height (Feet): 5 Height (Inches): 6.00 Weight (Pounds): 170 General Appearance: no apparent distress Cardiovascular: normal rate Respiratory/Chest: decreased breath sounds Abdomen: distended Phil Ortiz MD May 13, 2018 11:04
--- NOTE | 2018-05-13 12:56 | General Progress Note ---
Assessment/Plan Assessment/Plan # Acute kidney injury potentially medication v dehydration related --> losartan has been discontinued --> as per renal recs, reviewed --> trend bmp # Hypertension, on Toprol 50 mg b.i.d. as well as Norvasc 5 mg daily. --> bp better controlled as per cardiology --> meds adjusted # Right femoral pseudoaneurysm, status post thrombin injection. # History of pleural effusion, status post thoracentesis. # Paroxysmal atrial fibrillation. The patient is currently in sinus rhythm. --> Continue metoprolol 50 mg b.i.d. At this time, the patient is off anticoagulation except for aspirin. # Dysphagia, status post PEG placement. # Dementia. # DM / Proteinuria / HypoAlbuminemia # Encephalopathy due to metabolic factor or toxin # Hypoglycemia # Anemia # Decubitus ulcer of sacral region, unstageable Time of service does not reflect necessarily time of encounter. Subjective Constitutional: Denies: no symptoms, chills, diaphoresis, fever, malaise, weakness, other HEENT: Denies: no symptoms, eye pain, blurred vision, tearing, double vision, ear pain, ear discharge, nose pain, nose congestion, throat pain, throat swelling, mouth pain, mouth swelling, other Cardiovascular: Denies: no symptoms, chest pain, edema, irregular heart rate, lightheadedness, palpitations, syncope, other Respiratory: Denies: no symptoms, cough, orthopnea, shortness of breath, SOB with excertion, SOB at rest, sputum, stridor, wheezing, other Gastrointestinal/Abdominal: Denies: no symptoms, abdomen distended, abdominal pain, black stools, tarry stools, blood in stool, constipated, diarrhea, difficulty swallowing, nausea, poor appetite, poor fluid intake, rectal bleeding , vomiting, other Genitourinary: Denies: no symptoms, burning, discharge, frequency, flank pain, hematuria, incontinence, pain, urgency, other Neurologic/Psychiatric: Denies: no symptoms, anxiety, depressed, emotional problems, headache, numbness, paresthesia, pre-existing deficit, seizure, tingling, tremors, weakness, other Endocrine: Denies: no symptoms, excessive sweating, flushing, intolerance to cold, intolerance to heat, increased hunger, increased thirst, increased urine, unexplained weight gain, unexplained weight loss, other Hematologic/Lymphatic: Denies: no symptoms, anemia, easy bleeding, easy bruising, other Allergies: Coded Allergies: PENICILLINS (Unverified Allergy, Mild, 04/20/18) 04/20/18- Patient has been on pip-tazo for this admission since 04/15/18 as well as previous admission. Pt has Penicillin allergy on profile-unknown reactions. Mirza Gallo and [place] French aware of allergy and are okay with continuing with pip-tazo. No reactions noted Subjective Pt resting in bed. No acute events. VS stable. 05/13: no events, in bed, lowest position, peg tube+, no complaints Objective Last 24 Hour Vital Signs Date Time Temp Pulse Resp B/P (MAP) Pulse Ox O2 Delivery O2 Flow Rate FiO2 05/13/18 12:27 173/89 05/13/18 12:00 98.3 70 20 173/89 (117) 95 70 05/13/18 09:30 167/101 05/13/18 09:29 78 167/101 05/13/18 09:25 78 167/101 05/13/18 09:00 Nasal Cannula 2.0 05/13/18 08:00 76 05/13/18 08:00 98.8 78 21 167/101 (123) 95 78 05/13/18 05:37 179/66 05/13/18 04:00 99.7 83 20 182/68 (106) 95 83 05/13/18 03:38 82 05/13/18 01:00 163/71 (101) 05/13/18 00:14 149/68 05/13/18 00:00 99.5 73 20 172/63 (99) 96 73 05/12/18 23:29 73 05/12/18 21:52 97 Nasal Cannula 2.0 05/12/18 21:00 Nasal Cannula 2.0 05/12/18 20:40 90 169/72 05/12/18 20:00 98.6 90 20 169/72 (104) 94 90 05/12/18 19:45 91 05/12/18 17:33 140/85 05/12/18 16:00 98.5 89 24 140/85 (103) 100 89 05/12/18 16:00 94 05/12/18 15:37 75 22 100 Nasal Cannula 2.0 28 05/12/18 15:30 77 20 99 Nasal Cannula 2.0 28 05/12/18 15:30 77 Nasal Cannula 2.0 28 Intake and Output 05/12/18 05/13/18 19:00 07:00 Intake Total 1125 ml 251.25 ml Output Total 650 ml Balance 1125 ml -398.75 ml Free Water 180 ml IV Total 206.25 ml Tube Feeding 945 ml 45 ml Output Urine Total 650 ml # Bowel Movements 1 2 Laboratory Tests 05/13/18 11:25: C-Reactive Protein, Quantitative [Pending] Height (Feet): 5 Height (Inches): 6.00 Weight (Pounds): 170 Objective PHYSICAL EXAMINATION: VITAL SIGNS: Have been reviewed. HEAD AND NECK: Shows no JVD. LUNGS: Coarse rhonchi. CARDIOVASCULAR: Shows regular S1 and S2 with no gallop or murmur. ABDOMEN: Soft with G-tube. EXTREMITIES: Right groin hematoma is stable. Aleksandr Kern MD May 13, 2018 12:56
--- NOTE | 2018-05-13 15:10 | General Progress Note ---
Assessment/Plan Problem List: (1) Anemia ICD Codes: D64.9 - Anemia, unspecified SNOMED: 521532632 (2) Pleural effusion ICD Codes: J90 - Pleural effusion, not elsewhere classified SNOMED: 78755687 (3) Renal failure ICD Codes: N19 - Unspecified kidney failure SNOMED: 44073069 (4) Diabetic nephropathy ICD Codes: E11.21 - Type 2 diabetes mellitus with diabetic nephropathy SNOMED: 80752156, 900614415 (5) Hypertension ICD Codes: I10 - Essential (primary) hypertension SNOMED: 34016403 (6) CKD (chronic kidney disease) ICD Codes: N18.9 - Chronic kidney disease, unspecified SNOMED: 274662051 (7) Decubitus ulcer of sacral region, unstageable ICD Codes: L89.150 - Pressure ulcer of sacral region, unstageable SNOMED: 164686707, 967806116 (8) Mass of right thigh ICD Codes: R22.41 - Localized swelling, mass and lump, right lower limb SNOMED: 618129560 (9) MARK (acute kidney injury) ICD Codes: N17.9 - Acute kidney failure, unspecified SNOMED: 42525887 Status: progressing Assessment/Plan renal failue on top of cri afebrile check vitals h/o decub wound nonverbal s/p peg check lytes Subjective ROS Limited/Unobtainable: Yes Allergies: Coded Allergies: PENICILLINS (Unverified Allergy, Mild, 04/20/18) 04/20/18- Patient has been on pip-tazo for this admission since 04/15/18 as well as previous admission. Pt has Penicillin allergy on profile-unknown reactions. Mirza Gallo and [place] French aware of allergy and are okay with continuing with pip-tazo. No reactions noted Objective Last 24 Hour Vital Signs Date Time Temp Pulse Resp B/P (MAP) Pulse Ox O2 Delivery O2 Flow Rate FiO2 05/13/18 12:27 173/89 05/13/18 12:00 69 05/13/18 12:00 98.3 70 20 173/89 (117) 95 70 05/13/18 09:30 167/101 05/13/18 09:29 78 167/101 05/13/18 09:25 78 167/101 05/13/18 09:00 Nasal Cannula 2.0 05/13/18 08:00 76 05/13/18 08:00 98.8 78 21 167/101 (123) 95 78 05/13/18 05:37 179/66 05/13/18 04:00 99.7 83 20 182/68 (106) 95 83 05/13/18 03:38 82 05/13/18 01:00 163/71 (101) 05/13/18 00:14 149/68 05/13/18 00:00 99.5 73 20 172/63 (99) 96 73 05/12/18 23:29 73 05/12/18 21:52 97 Nasal Cannula 2.0 28 05/12/18 21:00 Nasal Cannula 2.0 05/12/18 20:40 90 169/72 05/12/18 20:00 98.6 90 20 169/72 (104) 94 90 05/12/18 19:45 91 05/12/18 17:33 140/85 05/12/18 16:00 98.5 89 24 140/85 (103) 100 89 05/12/18 16:00 94 05/12/18 15:37 75 22 100 Nasal Cannula 2.0 28 05/12/18 15:30 77 20 99 Nasal Cannula 2.0 28 05/12/18 15:30 77 Nasal Cannula 2.0 28 Intake and Output 05/12/18 05/13/18 19:00 07:00 Intake Total 1125 ml 251.25 ml Output Total 650 ml Balance 1125 ml -398.75 ml Free Water 180 ml IV Total 206.25 ml Tube Feeding 945 ml 45 ml Output Urine Total 650 ml # Bowel Movements 1 2 Laboratory Tests 05/13/18 11:25: C-Reactive Protein, Quantitative 18.9H Height (Feet): 5 Height (Inches): 6.00 Weight (Pounds): 170 General Appearance: lethargic, confused Respiratory/Chest: lungs clear Abdomen: soft Krzysztof Schneider MD May 13, 2018 15:10
--- NOTE | 2018-05-13 18:25 | Pulmonology Progress Note ---
Assessment/Plan Assessment/Plan 82 F NHR non-verbal, prior CVA, recent admission with sepsis, dysphagia S/P PEG BIB EMS with MARK on CKD, likely dehydration. Optimize pulmonary hygiene/mobilize as tolerated PRN O2 PRN HHN's prn CXR Observe off Abx Monitor electrolytes and renal function, IVF per renal Wound care TF's DVT Px: Hep SQ DNAR/DNI, continue to discuss GOC, consider supportive care evaluation dc planning per primary Subjective ROS Limited/Unobtainable: Yes Allergies: Coded Allergies: PENICILLINS (Unverified Allergy, Mild, 04/20/18) 04/20/18- Patient has been on pip-tazo for this admission since 04/15/18 as well as previous admission. Pt has Penicillin allergy on profile-unknown reactions. Mirza Gallo and [place] French aware of allergy and are okay with continuing with pip-tazo. No reactions noted Subjective obtunded no distress tolerating tf no reports of pain not getting oob on o2 Objective Last 24 Hour Vital Signs Date Time Temp Pulse Resp B/P (MAP) Pulse Ox O2 Delivery O2 Flow Rate FiO2 05/13/18 17:33 167/66 05/13/18 16:00 67 05/13/18 16:00 98.3 65 20 167/66 (99) 98 65 05/13/18 12:27 173/89 05/13/18 12:00 69 05/13/18 12:00 98.3 70 20 173/89 (117) 95 70 05/13/18 09:30 167/101 05/13/18 09:29 78 167/101 05/13/18 09:25 78 167/101 05/13/18 09:00 Nasal Cannula 2.0 05/13/18 08:00 76 05/13/18 08:00 98.8 78 21 167/101 (123) 95 78 05/13/18 05:37 179/66 05/13/18 04:00 99.7 83 20 182/68 (106) 95 83 05/13/18 03:38 82 05/13/18 01:00 163/71 (101) 05/13/18 00:14 149/68 05/13/18 00:00 99.5 73 20 172/63 (99) 96 73 05/12/18 23:29 73 05/12/18 21:52 97 Nasal Cannula 2.0 28 05/12/18 21:00 Nasal Cannula 2.0 05/12/18 20:40 90 169/72 05/12/18 20:00 98.6 90 20 169/72 (104) 94 90 05/12/18 19:45 91 Intake and Output 05/12/18 05/13/18 19:00 07:00 Intake Total 1125 ml 251.25 ml Output Total 650 ml Balance 1125 ml -398.75 ml Free Water 180 ml IV Total 206.25 ml Tube Feeding 945 ml 45 ml Output Urine Total 650 ml # Bowel Movements 1 2 General Appearance: WD/WN Respiratory/Chest: lungs clear Cardiovascular: normal rate, regular rhythm, murmur systolic, edema Abdomen: no organomegaly, non distended Neurologic/Psychiatric: disoriented, unresponsiveness Laboratory Tests 05/13/18 11:25: C-Reactive Protein, Quantitative 18.9H Current Medications Medications (Trade) Dose Ordered Sig/Gelacio Route PRN Reason Start Time Stop Time Status Last Admin Dose Admin Acetaminophen (Tylenol) 650 mg Q4H PRN ORAL For Pain 05/10/18 21:00 06/09/18 20:59 Albuterol/ Ipratropium (Albuterol/ Ipratropium) 3 ml Q4H PRN HHN Shortness of Breath 05/10/18 21:00 05/15/18 20:59 05/12/18 15:28 Amlodipine Besylate (Norvasc) 5 mg DAILY GT 05/12/18 09:00 06/10/18 08:59 05/13/18 09:25 Ascorbic Acid (Vitamin C) 500 mg TWICE A DAY GT 05/11/18 09:00 06/10/18 08:59 05/13/18 17:33 Aspirin (ASA) 81 mg DAILY GT 05/11/18 09:00 06/10/18 08:59 05/13/18 09:24 Clonidine HCl (Catapres Tab) 0.1 mg Q6H PRN GT >HTN 160 05/10/18 21:00 06/09/18 20:59 Dextrose (Dextrose 50%) 25 ml Q30M PRN IV Hypoglycemia 05/10/18 21:30 06/09/18 21:29 Dextrose (Dextrose 50%) 50 ml Q30M PRN IV Hypoglycemia 05/10/18 21:30 06/09/18 21:29 Epoetin Homer (Procrit (for non ESRD use)) 10,000 units MON-MON-MON SUBQ 05/11/18 21:00 06/10/18 20:59 05/11/18 21:06 Gabapentin (Neurontin) 100 mg THREE TIMES A DAY GT 05/11/18 09:00 06/10/18 08:59 05/13/18 17:33 Hydralazine HCl (Apresoline) 25 mg EVERY 6 HOURS GT 05/11/18 18:00 06/10/18 00:00 05/13/18 17:33 Insulin Aspart (NovoLOG) Q6HR SUBQ 05/12/18 06:00 06/10/18 06:29 05/13/18 17:40 Levetiracetam (Keppra) 750 mg BID GT 05/11/18 09:00 06/10/18 08:59 05/13/18 17:34 Metoprolol Tartrate (Lopressor) 50 mg EVERY 12 HOURS ORAL 05/10/18 22:00 06/09/18 21:59 05/13/18 09:29 Multivitamins (Multivitamins W/ Minerals 15ml Liquid) 15 ml DAILY GT 05/11/18 09:00 06/10/18 08:59 05/13/18 09:24 Nitroglycerin (Ntg) 1 patch DAILY TDERMAL 05/11/18 09:00 06/10/18 08:59 05/13/18 09:30 Pantoprazole (Protonix) 40 mg EVERY 12 HOURS IVP 05/10/18 21:00 06/09/18 20:59 05/13/18 09:24 Sevelamer Carbonate (Renvela) 800 mg THREE TIMES A DAY NG 05/12/18 09:00 06/11/18 08:59 05/13/18 17:33 Sodium Chloride 1,000 ml @ 75 mls/hr [id number] IV 05/10/18 18:30 06/09/18 18:29 05/13/18 12:29 Misty Lamb DO May 13, 2018 18:25
[2018-05-14] VITALS: BP 139/56
[2018-05-14] MEDS: NovoLOG Insulin Flexpen SUBQ SCH ×4 (00:57→17:33)
[2018-05-14] MEDS: HydrALAZINE 25mg tab GT SCH ×4 (00:58→17:25)
[2018-05-14 04:00] VITALS: BP 164/72
[2018-05-14 05:42] LABS: BASOPHILS % (AUTO) 1.7 % (0.0-2.0); EOSINOPHILS % (AUTO) 2.6 % (0.0-3.0); HEMATOCRIT 29.6 % (37.0-47.0); HEMOGLOBIN 9.7 G/DL (12.0-16.0); LYMPHOCYTES % (AUTO) 6.9 % (20.0-45.0); MEAN CORPUSCULAR VOLUME 92 FL (80-99); MONOCYTES % (AUTO) 5.1 % (1.0-10.0); NEUTROPHILS % (AUTO) 83.6 % (45.0-75.0); PLATELET COUNT 180 K/UL (150-450); RED BLOOD COUNT 3.21 M/UL (4.20-5.40); RED CELL DISTRIBUTION WIDTH 13.5 % (11.6-14.8); WHITE BLOOD COUNT 13.7 K/UL (4.8-10.8)
[2018-05-14 06:15] LABS: ALANINE AMINOTRANSFERASE 17 U/L (12-78); ALBUMIN 2.3 G/DL (3.4-5.0); ALBUMIN/GLOBULIN RATIO 0.5 (1.0-2.7); ALKALINE PHOSPHATASE 136 U/L (46-116); ANION GAP 12 mmol/L (5-15); ASPARTATE AMINO TRANSFERASE 17 U/L (15-37); BILIRUBIN,TOTAL 0.3 MG/DL (0.2-1.0); BLOOD UREA NITROGEN 125 mg/dL (7-18); CALCIUM 8.6 MG/DL (8.5-10.1); CARBON DIOXIDE 22 MMOL/L (21-32); CHLORIDE 110 MMOL/L (98-107); CREATININE 3.7 MG/DL (0.55-1.30); PHOSPHORUS 5.1 MG/DL (2.5-4.9); POTASSIUM 4.2 MMOL/L (3.5-5.1); SODIUM 144 MMOL/L (136-145)
[2018-05-14 08:00] VITALS: BP 157/73
[2018-05-14] MEDS: Aspirin Baby 81mg GT SCH (09:18)
[2018-05-14] MEDS: Ascorbic Acid 500mg tab GT SCH ×2 (09:18→17:25)
[2018-05-14] MEDS: Nitroglycerin Patch 0.4mg TDERMAL SCH (09:18)
[2018-05-14] MEDS: Metoprolol Tartrate 50mg tab ORAL SCH ×2 (09:18→21:07)
[2018-05-14] MEDS: levETIRAcetam 500mg/5ml Liquid GT SCH ×2 (09:19→17:26)
[2018-05-14] MEDS: Multivitamins W/Minerals 15 ML UDC GT SCH (09:19)
[2018-05-14] MEDS: Pantoprazole Inj IVP SCH ×2 (09:19→21:07)
[2018-05-14] MEDS: Renvela 800mg Pkt NG SCH ×3 (09:19→17:26)
--- NOTE | 2018-05-14 10:02 | Cardiac Electrophysiology PN ---
Assessment/Plan Assessment/Plan 1. Paroxysmal atrial fibrillation, currently in sinus rhythm. Continue metoprolol 50 mg b.i.d and aspirin. 2. Hypertension, on Toprol 50 mg bid, Norvasc 5 mg daily and hydralazine 25 q6hr 3. Right femoral pseudoaneurysm, status post thrombin injection. 4. History of pleural effusion, status post thoracentesis. 5. Acute renal failure. 125/3.7. FU Dr. Ortiz 6. Dysphagia, status post PEG placement. 7. Dementia. 8. Troponin leak 1.86. Non verbal. ECG today showed RBBB with no change. Due to renal failure. Repeat troponin 9. DNR DW RN Subjective Subjective Nonverbal with no events. G tube feeding on going. On NS 75cc/hr. Had troponin elevation. Now DNR Objective Last 24 Hour Vital Signs Date Time Temp Pulse Resp B/P (MAP) Pulse Ox O2 Delivery O2 Flow Rate FiO2 05/14/18 09:18 80 157/73 05/14/18 09:18 157/73 05/14/18 09:18 80 157/73 05/14/18 08:00 98.0 80 20 157/73 (101) 96 05/14/18 07:23 78 05/14/18 06:03 164/72 05/14/18 04:00 74 05/14/18 04:00 98.2 76 22 164/72 (102) 99 05/14/18 00:58 139/56 05/14/18 00:00 98.1 67 22 139/56 (83) 93 67 05/14/18 00:00 66 05/13/18 21:56 68 155/68 05/13/18 21:00 Nasal Cannula 2.0 05/13/18 20:00 69 05/13/18 20:00 98.1 68 18 155/68 (97) 98 68 05/13/18 17:33 167/66 05/13/18 16:00 67 05/13/18 16:00 98.3 65 20 167/66 (99) 98 65 05/13/18 12:27 173/89 05/13/18 12:00 69 05/13/18 12:00 98.3 70 20 173/89 (117) 95 70 Intake and Output 05/13/18 05/14/18 18:59 06:59 Intake Total 810 ml Output Total 528 ml Balance 810 ml -528 ml Free Water 90 ml IV Total 225 ml Tube Feeding 495 ml Output Urine Total 525 ml Stool Total 3 ml # Bowel Movements 1 1 Laboratory Tests Test 05/13/18 11:25 05/14/18 04:55 C-Reactive Protein, Quantitative 18.9 mg/dL (0.00-0.90) H White Blood Count 13.7 K/UL (4.8-10.8) H Red Blood Count 3.21 M/UL (4.20-5.40) L Hemoglobin 9.7 G/DL (12.0-16.0) L Hematocrit 29.6 % (37.0-47.0) L Mean Corpuscular Volume 92 FL (80-99) Mean Corpuscular Hemoglobin 30.1 PG (27.0-31.0) Mean Corpuscular Hemoglobin Concent 32.7 G/DL (32.0-36.0) Red Cell Distribution Width 13.5 % (11.6-14.8) Platelet Count 180 K/UL (150-450) Mean Platelet Volume 7.5 FL (6.5-10.1) Neutrophils (%) (Auto) 83.6 % (45.0-75.0) H Lymphocytes (%) (Auto) 6.9 % (20.0-45.0) L Monocytes (%) (Auto) 5.1 % (1.0-10.0) Eosinophils (%) (Auto) 2.6 % (0.0-3.0) Basophils (%) (Auto) 1.7 % (0.0-2.0) Sodium Level 144 MMOL/L (136-145) Potassium Level 4.2 MMOL/L (3.5-5.1) Chloride Level 110 MMOL/L (98-107) H Carbon Dioxide Level 22 MMOL/L (21-32) Anion Gap 12 mmol/L (5-15) Blood Urea Nitrogen 125 mg/dL (7-18) H Creatinine 3.7 MG/DL (0.55-1.30) H Estimat Glomerular Filtration Rate mL/min (>60) Glucose Level 242 MG/DL (74-106) H Uric Acid 6.8 MG/DL (2.6-7.2) Calcium Level 8.6 MG/DL (8.5-10.1) Phosphorus Level 5.1 MG/DL (2.5-4.9) H Magnesium Level 3.9 MG/DL (1.8-2.4) H Total Bilirubin 0.3 MG/DL (0.2-1.0) Aspartate Amino Transf (AST/SGOT) 17 U/L (15-37) Alanine Aminotransferase (ALT/SGPT) 17 U/L (12-78) Alkaline Phosphatase 136 U/L (46-116) H Troponin I 1.861 ng/mL (0.000-0.056) Pro-B-Type Natriuretic Peptide 6074 pg/mL (0-125) H Total Protein 7.1 G/DL (6.4-8.2) Albumin 2.3 G/DL (3.4-5.0) L Globulin 4.8 g/dL Albumin/Globulin Ratio 0.5 (1.0-2.7) L Objective HEAD AND NECK: No JVD. LUNGS: Coarse rhonchi. CARDIOVASCULAR: Regular S1 and S2 with no gallop or murmur. ABDOMEN: Soft with G-tube. EXTREMITIES: Right groin hematoma is stable. Sacral decubitus Everett Nair MD May 14, 2018 10:02
--- NOTE | 2018-05-14 10:52 | Pulmonology Progress Note ---
Assessment/Plan Assessment/Plan Pulmonary Progress Note Assessment/Plan Assessment/Plan 82 F NHR non-verbal, prior CVA, recent admission with sepsis, dysphagia S/P PEG BIB EMS with MARK on CKD, likely dehydration. Optimize pulmonary hygiene/mobilize as tolerated PRN O2 PRN HHN's prn CXR Observe off Abx Monitor electrolytes and renal function, IVF per renal Wound care TF's DVT Px: Hep SQ DNAR/DNI, continue to discuss GOC, consider supportive care evaluation dc planning per primary Subjective ROS Limited/Unobtainable: Yes Allergies: Coded Allergies: PENICILLINS (Unverified Allergy, Mild, 04/20/18) 04/20/18- Patient has been on pip-tazo for this admission since 04/15/18 as well as previous admission. Pt has Penicillin allergy on profile-unknown reactions. Mirza Gallo and [place] aware of allergy and are okay with continuing with pip-tazo. No reactions noted Subjective obtunded no distress tolerating tf no reports of pain not getting oob on o2 Objective Vital Signs Noted General Appearance: WD/WN Respiratory/Chest: lungs clear Cardiovascular: normal rate, regular rhythm, murmur systolic, edema Abdomen: no organomegaly, non distended Neurologic/Psychiatric: disoriented, unresponsiveness Laboratory Tests 05/13/18 11:25: C-Reactive Protein, Quantitative 18.9H Current Medications Medications (Trade) Dose Ordered Sig/Gelacio Route PRN Reason Start Time Stop Time Status Last Admin Dose Admin Acetaminophen (Tylenol) 650 mg Q4H PRN ORAL For Pain 05/10/18 21:00 06/09/18 20:59 Albuterol/ Ipratropium (Albuterol/ Ipratropium) 3 ml Q4H PRN HHN Shortness of Breath 05/10/18 21:00 05/15/18 20:59 05/12/18 15:28 Amlodipine Besylate (Norvasc) 5 mg DAILY GT 05/12/18 09:00 06/10/18 08:59 05/13/18 09:25 Ascorbic Acid (Vitamin C) 500 mg TWICE A DAY GT 05/11/18 09:00 06/10/18 08:59 05/13/18 17:33 Aspirin (ASA) 81 mg DAILY GT 05/11/18 09:00 06/10/18 08:59 05/13/18 09:24 Clonidine HCl (Catapres Tab) 0.1 mg Q6H PRN GT >HTN 160 05/10/18 21:00 06/09/18 20:59 Dextrose (Dextrose 50%) 25 ml Q30M PRN IV Hypoglycemia 05/10/18 21:30 06/09/18 21:29 Dextrose (Dextrose 50%) 50 ml Q30M PRN IV Hypoglycemia 05/10/18 21:30 06/09/18 21:29 Epoetin Homer (Procrit (for non ESRD use)) 10,000 units MON- SUBQ 05/11/18 21:00 06/10/18 20:59 05/11/18 21:06 Gabapentin (Neurontin) 100 mg THREE TIMES A DAY GT 05/11/18 09:00 06/10/18 08:59 05/13/18 17:33 Hydralazine HCl (Apresoline) 25 mg EVERY 6 HOURS GT 05/11/18 18:00 06/10/18 00:00 05/13/18 17:33 Insulin Aspart (NovoLOG) Q6HR SUBQ 05/12/18 06:00 06/10/18 06:29 05/13/18 17:40 Levetiracetam (Keppra) 750 mg BID GT 05/11/18 09:00 06/10/18 08:59 05/13/18 17:34 Metoprolol Tartrate (Lopressor) 50 mg EVERY 12 HOURS ORAL 05/10/18 22:00 06/09/18 21:59 05/13/18 09:29 Multivitamins (Multivitamins W/ Minerals 15ml Liquid) 15 ml DAILY GT 05/11/18 09:00 06/10/18 08:59 05/13/18 09:24 Nitroglycerin (Ntg) 1 patch DAILY TDERMAL 05/11/18 09:00 06/10/18 08:59 05/13/18 09:30 Pantoprazole (Protonix) 40 mg EVERY 12 HOURS IVP 05/10/18 21:00 06/09/18 20:59 05/13/18 09:24 Sevelamer Carbonate (Renvela) 800 mg THREE TIMES A DAY NG 05/12/18 09:00 06/11/18 08:59 05/13/18 17:33 Sodium Chloride 1,000 ml @ 75 mls/hr [id number] IV 05/10/18 18:30 06/09/18 18:29 05/13/18 12:29 Subjective ROS Limited/Unobtainable: No Allergies: Coded Allergies: PENICILLINS (Unverified Allergy, Mild, 04/20/18) 04/20/18- Patient has been on pip-tazo for this admission since 04/15/18 as well as previous admission. Pt has Penicillin allergy on profile-unknown reactions. Mirza Gallo and [place] French aware of allergy and are okay with continuing with pip-tazo. No reactions noted Objective Last 24 Hour Vital Signs Date Time Temp Pulse Resp B/P (MAP) Pulse Ox O2 Delivery O2 Flow Rate FiO2 05/14/18 09:18 80 157/73 05/14/18 09:18 157/73 05/14/18 09:18 80 157/73 05/14/18 09:00 Nasal Cannula 2.0 05/14/18 08:00 98.0 80 20 157/73 (101) 96 05/14/18 07:23 78 05/14/18 06:03 164/72 05/14/18 04:00 74 05/14/18 04:00 98.2 76 22 164/72 (102) 99 05/14/18 00:58 139/56 05/14/18 00:00 98.1 67 22 139/56 (83) 93 67 05/14/18 00:00 66 05/13/18 21:56 68 155/68 05/13/18 21:00 Nasal Cannula 2.0 05/13/18 20:00 69 05/13/18 20:00 98.1 68 18 155/68 (97) 98 68 05/13/18 17:33 167/66 05/13/18 16:00 67 05/13/18 16:00 98.3 65 20 167/66 (99) 98 65 05/13/18 12:27 173/89 05/13/18 12:00 69 05/13/18 12:00 98.3 70 20 173/89 (117) 95 70 Intake and Output 05/13/18 05/14/18 18:59 06:59 Intake Total 810 ml Output Total 528 ml Balance 810 ml -528 ml Free Water 90 ml IV Total 225 ml Tube Feeding 495 ml Output Urine Total 525 ml Stool Total 3 ml # Bowel Movements 1 1 Laboratory Tests 05/13/18 11:25: C-Reactive Protein, Quantitative 18.9H 05/14/18 04:55: White Blood Count 13.7H, Red Blood Count 3.21L, Hemoglobin 9.7L, Hematocrit 29.6L, Mean Corpuscular Volume 92, Mean Corpuscular Hemoglobin 30.1, Mean Corpuscular Hemoglobin Concent 32.7, Red Cell Distribution Width 13.5, Platelet Count 180, Mean Platelet Volume 7.5, Neutrophils (%) (Auto) 83.6H, Lymphocytes ( %) (Auto) 6.9L, Monocytes (%) (Auto) 5.1, Eosinophils (%) (Auto) 2.6, Basophils (%) (Auto) 1.7, Sodium Level 144, Potassium Level 4.2, Chloride Level 110H, Carbon Dioxide Level 22, Anion Gap 12, Blood Urea Nitrogen 125H, Creatinine 3.7H , Estimat Glomerular Filtration Rate , Glucose Level 242H, Uric Acid 6.8, Calcium Level 8.6, Phosphorus Level 5.1H, Magnesium Level 3.9H, Total Bilirubin 0.3, Aspartate Amino Transf (AST/SGOT) 17, Alanine Aminotransferase (ALT/SGPT) 17, Alkaline Phosphatase 136H, Troponin I 1.861H, Pro-B-Type Natriuretic Peptide 6074H, Total Protein 7.1, Albumin 2.3L, Globulin 4.8, Albumin/Globulin Ratio 0.5L Current Medications Medications (Trade) Dose Ordered Sig/Gelacio Route PRN Reason Start Time Stop Time Status Last Admin Dose Admin Acetaminophen (Tylenol) 650 mg Q4H PRN ORAL For Pain 05/10/18 21:00 06/09/18 20:59 Albuterol/ Ipratropium (Albuterol/ Ipratropium) 3 ml Q4H PRN HHN Shortness of Breath 05/10/18 21:00 05/15/18 20:59 05/12/18 15:28 Amlodipine Besylate (Norvasc) 5 mg DAILY GT 05/12/18 09:00 06/10/18 08:59 05/14/18 09:18 Ascorbic Acid (Vitamin C) 500 mg TWICE A DAY GT 05/11/18 09:00 06/10/18 08:59 12/31/18 09:18 Aspirin (ASA) 81 mg DAILY GT 05/11/18 09:00 06/10/18 08:59 05/14/18 09:18 Clonidine HCl (Catapres Tab) 0.1 mg Q6H PRN GT >HTN 160 05/10/18 21:00 06/09/18 20:59 Dextrose (Dextrose 50%) 25 ml Q30M PRN IV Hypoglycemia 05/10/18 21:30 06/09/18 21:29 Dextrose (Dextrose 50%) 50 ml Q30M PRN IV Hypoglycemia 05/10/18 21:30 06/09/18 21:29 Epoetin Homer (Procrit (for non ESRD use)) 10,000 units MON-MON-MON SUBQ 05/11/18 21:00 06/10/18 20:59 05/11/18 21:06 Gabapentin (Neurontin) 100 mg THREE TIMES A DAY GT 05/11/18 09:00 06/10/18 08:59 05/14/18 09:18 Hydralazine HCl (Apresoline) 25 mg EVERY 6 HOURS GT 05/11/18 18:00 06/10/18 00:00 05/14/18 06:03 Insulin Aspart (NovoLOG) Q6HR SUBQ 05/12/18 06:00 06/10/18 06:29 05/14/18 06:02 Levetiracetam (Keppra) 750 mg BID GT 05/11/18 09:00 06/10/18 08:59 05/14/18 09:19 Metoprolol Tartrate (Lopressor) 50 mg EVERY 12 HOURS ORAL 05/10/18 22:00 06/09/18 21:59 05/14/18 09:18 Multivitamins (Multivitamins W/ Minerals 15ml Liquid) 15 ml DAILY GT 05/11/18 09:00 06/10/18 08:59 05/14/18 09:19 Nitroglycerin (Ntg) 1 patch DAILY TDERMAL 05/11/18 09:00 06/10/18 08:59 05/14/18 09:18 Pantoprazole (Protonix) 40 mg EVERY 12 HOURS IVP 05/10/18 21:00 06/09/18 20:59 05/14/18 09:19 Sevelamer Carbonate (Renvela) 800 mg THREE TIMES A DAY NG 05/12/18 09:00 06/11/18 08:59 05/14/18 09:19 Sodium Chloride 1,000 ml @ 75 mls/hr [id number] IV 05/10/18 18:30 06/09/18 18:29 05/13/18 12:29 Brian Cardona MD May 14, 2018 10:52
--- NOTE | 2018-05-14 11:20 | General Progress Note ---
Assessment/Plan Problem List: (1) Anemia ICD Codes: D64.9 - Anemia, unspecified SNOMED: 555631498 (2) Pleural effusion ICD Codes: J90 - Pleural effusion, not elsewhere classified SNOMED: 96578578 (3) Renal failure ICD Codes: N19 - Unspecified kidney failure SNOMED: 28898130 (4) Diabetic nephropathy ICD Codes: E11.21 - Type 2 diabetes mellitus with diabetic nephropathy SNOMED: 45221006, 373187053 (5) Hypertension ICD Codes: I10 - Essential (primary) hypertension SNOMED: 03653233 (6) CKD (chronic kidney disease) ICD Codes: N18.9 - Chronic kidney disease, unspecified SNOMED: 597567229 (7) Decubitus ulcer of sacral region, unstageable ICD Codes: L89.150 - Pressure ulcer of sacral region, unstageable SNOMED: 716524074, 640323441 (8) Mass of right thigh ICD Codes: R22.41 - Localized swelling, mass and lump, right lower limb SNOMED: 829753724 (9) MARK (acute kidney injury) ICD Codes: N17.9 - Acute kidney failure, unspecified SNOMED: 91921249 Status: progressing Assessment/Plan renal failue on top of cri afebrile check vitals h/o decub wound 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 Pt has Penicillin allergy on profile-unknown reactions. Mirza Gallo and Belgica French aware of allergy and are okay with continuing with pip-tazo. No reactions noted Objective Last 24 Hour Vital Signs Date Time Temp Pulse Resp B/P (MAP) Pulse Ox O2 Delivery O2 Flow Rate FiO2 05/14/18 09:18 80 157/73 05/14/18 09:18 157/73 05/14/18 09:18 80 157/73 05/14/18 09:00 Nasal Cannula 2.0 05/14/18 08:00 98.0 80 20 157/73 (101) 96 05/14/18 07:23 78 05/14/18 06:03 164/72 05/14/18 04:00 74 05/14/18 04:00 98.2 76 22 164/72 (102) 99 05/14/18 00:58 139/56 05/14/18 00:00 98.1 67 22 139/56 (83) 93 67 05/14/18 00:00 66 05/13/18 21:56 68 155/68 05/13/18 21:00 Nasal Cannula 2.0 05/13/18 20:00 69 05/13/18 20:00 98.1 68 18 155/68 (97) 98 68 05/13/18 17:33 167/66 05/13/18 16:00 67 05/13/18 16:00 98.3 65 20 167/66 (99) 98 65 05/13/18 12:27 173/89 05/13/18 12:00 69 05/13/18 12:00 98.3 70 20 173/89 (117) 95 70 Intake and Output 05/13/18 05/14/18 18:59 06:59 Intake Total 810 ml Output Total 528 ml Balance 810 ml -528 ml Free Water 90 ml IV Total 225 ml Tube Feeding 495 ml Output Urine Total 525 ml Stool Total 3 ml # Bowel Movements 1 1 Laboratory Tests 05/13/18 11:25: C-Reactive Protein, Quantitative 18.9H 05/14/18 04:55: White Blood Count 13.7H, Red Blood Count 3.21L, Hemoglobin 9.7L, Hematocrit 29.6L, Mean Corpuscular Volume 92, Mean Corpuscular Hemoglobin 30.1, Mean Corpuscular Hemoglobin Concent 32.7, Red Cell Distribution Width 13.5, Platelet Count 180, Mean Platelet Volume 7.5, Neutrophils (%) (Auto) 83.6H, Lymphocytes ( %) (Auto) 6.9L, Monocytes (%) (Auto) 5.1, Eosinophils (%) (Auto) 2.6, Basophils (%) (Auto) 1.7, Sodium Level 144, Potassium Level 4.2, Chloride Level 110H, Carbon Dioxide Level 22, Anion Gap 12, Blood Urea Nitrogen 125H, Creatinine 3.7H , Estimat Glomerular Filtration Rate , Glucose Level 242H, Uric Acid 6.8, Calcium Level 8.6, Phosphorus Level 5.1H, Magnesium Level 3.9H, Total Bilirubin 0.3, Aspartate Amino Transf (AST/SGOT) 17, Alanine Aminotransferase (ALT/SGPT) 17, Alkaline Phosphatase 136H, Troponin I 1.861H, Pro-B-Type Natriuretic Peptide 6074H, Total Protein 7.1, Albumin 2.3L, Globulin 4.8, Albumin/Globulin Ratio 0.5L Height (Feet): 5 Height (Inches): 6.00 Weight (Pounds): 170 General Appearance: confused Cardiovascular: regular rhythm Krzysztof Schneider MD May 14, 2018 11:20
[2018-05-14 12:00] VITALS: BP 152/109
--- NOTE | 2018-05-14 14:44 | Nephrology Progress Note ---
Assessment/Plan Problem List: (1) MARK (acute kidney injury) (2) Anemia (3) Diabetic nephropathy Assessment acute on chronic renal failure: Dehydration DM / Proteinuria / HypoAlbuminemia Encephalopathy due to metabolic factor or toxin Hypoglycemia Anemia Decubitus ulcer of sacral region, unstageable PEG (percutaneous endoscopic gastrostomy) status Plan Cr lower Hydrate- Monitor BS- Anemia conn avoid Nephrotoxics Monitor renal parameters Subjective ROS Limited/Unobtainable: No Constitutional: Reports: malaise, weakness Objective Objective Last 24 Hour Vital Signs Date Time Temp Pulse Resp B/P (MAP) Pulse Ox O2 Delivery O2 Flow Rate FiO2 05/14/18 12:27 152/109 05/14/18 12:00 98.2 79 20 152/109 (123) 98 05/14/18 11:44 73 05/14/18 09:18 80 157/73 05/14/18 09:18 157/73 05/14/18 09:18 80 157/73 05/14/18 09:00 Nasal Cannula 2.0 05/14/18 08:00 98.0 80 20 157/73 (101) 96 05/14/18 07:23 78 05/14/18 06:03 164/72 05/14/18 04:00 74 05/14/18 04:00 98.2 76 22 164/72 (102) 99 05/14/18 00:58 139/56 05/14/18 00:00 98.1 67 22 139/56 (83) 93 67 05/14/18 00:00 66 05/13/18 21:56 68 155/68 05/13/18 21:00 Nasal Cannula 2.0 05/13/18 20:00 69 05/13/18 20:00 98.1 68 18 155/68 (97) 98 68 05/13/18 17:33 167/66 05/13/18 16:00 67 05/13/18 16:00 98.3 65 20 167/66 (99) 98 65 Intake and Output 05/13/18 05/14/18 19:00 07:00 Intake Total 810 ml Output Total 528 ml Balance 810 ml -528 ml Free Water 90 ml IV Total 225 ml Tube Feeding 495 ml Output Urine Total 525 ml Stool Total 3 ml # Bowel Movements 1 1 Laboratory Tests 05/14/18 04:55: White Blood Count 13.7H, Red Blood Count 3.21L, Hemoglobin 9.7L, Hematocrit 29.6L, Mean Corpuscular Volume 92, Mean Corpuscular Hemoglobin 30.1, Mean Corpuscular Hemoglobin Concent 32.7, Red Cell Distribution Width 13.5, Platelet Count 180, Mean Platelet Volume 7.5, Neutrophils (%) (Auto) 83.6H, Lymphocytes ( %) (Auto) 6.9L, Monocytes (%) (Auto) 5.1, Eosinophils (%) (Auto) 2.6, Basophils (%) (Auto) 1.7, Sodium Level 144, Potassium Level 4.2, Chloride Level 110H, Carbon Dioxide Level 22, Anion Gap 12, Blood Urea Nitrogen 125H, Creatinine 3.7H , Estimat Glomerular Filtration Rate , Glucose Level 242H, Uric Acid 6.8, Calcium Level 8.6, Phosphorus Level 5.1H, Magnesium Level 3.9H, Total Bilirubin 0.3, Aspartate Amino Transf (AST/SGOT) 17, Alanine Aminotransferase (ALT/SGPT) 17, Alkaline Phosphatase 136H, Troponin I 1.861H, Pro-B-Type Natriuretic Peptide 6074H, Total Protein 7.1, Albumin 2.3L, Globulin 4.8, Albumin/Globulin Ratio 0.5L Height (Feet): 5 Height (Inches): 6.00 Weight (Pounds): 170 General Appearance: no apparent distress, lethargic Cardiovascular: normal rate Respiratory/Chest: decreased breath sounds Abdomen: distended Phil Ortiz MD May 14, 2018 14:44
[2018-05-14 15:52] VITALS: BP 149/75
[2018-05-14 20:00] VITALS: BP 158/108
[2018-05-14] MEDS: Epogen (for non ESRD use) SUBQ SCH (21:07)
[2018-05-15] VITALS: BP 148/64
[2018-05-15] MEDS: HydrALAZINE 25mg tab GT SCH ×4 (00:56→17:49)
[2018-05-15] MEDS: NovoLOG Insulin Flexpen SUBQ SCH ×4 (00:57→17:51)
--- NOTE | 2018-05-15 01:41 | Consultation ---
History of Present Illness General Chief Complaint: Abnormal Labs Referring physician: Krzysztof Prabhakar MD & Aleksandr Kern Reason for Consultation: SOB Present Illness HPI 82-year-old female with history of hypertension, paroxysmal atrial fibrillation, congestive heart failure,and dementia. the pt pw waxing and waning of consciousness and was agitated today. the pt was unable to provide any hx. she has memory impairment. Allergies: Coded Allergies: PENICILLINS (Unverified Allergy, Mild, 04/20/18) 04/20/18- Patient has been on pip-tazo for this admission since 04/15/18 as well as previous admission. Pt has Penicillin allergy on profile-unknown reactions. Mirza Gallo and Belgica Padillaan aware of allergy and are okay with continuing with pip-tazo. No reactions noted Medication History Scheduled Amino Acids/Protein Hydrolys (Pro-Stat Liquid), 30 ML GT DAILY, (Reported) Amlodipine Besylate (Norvasc), 5 MG GT DAILY, (Reported) Ascorbic Acid* (Vitamin C*), 500 MG GT TWICE A DAY, (Reported) Aspirin* (Aspir 81*), 81 MG GT DAILY, (Reported) Darbepoetin Homer in Polysorbat (Aranesp), 40 MCG IM Q MONDAY, (Reported) Doxazosin Mesylate (Doxazosin Mesylate), 2 MG GT TWICE A DAY, (Reported) Gabapentin* (Gabapentin*), 100 MG GT THREE TIMES A DAY, (Reported) Hydralazine Hcl* (Hydralazine Hcl*), 75 MG GT EVERY 6 HOURS, (Reported) Insulin Human NPH (Novolin N), 20 UNITS SUBQ Q12HR, (Reported) Lansoprazole* (Prevacid*), 30 MG GT Q12HR, (Reported) Levetiracetam* (Levetiracetam*), 750 MG GT BID, (Reported) Losartan Potassium* (Losartan Potassium*), 25 MG GT TWICE A DAY, (Reported) Metoprolol Tartrate* (Metoprolol Tartrate*), 50 MG ORAL EVERY 12 HOURS, ( Reported) Multivits W-Min/Ferrous Gluc (Centrum Multivit-Mineral Liq), 5 ML GT DAILY, ( Reported) Nifedipine* (Nifedipine Er*), 60 MG ORAL Q8HR, (Reported) Nitroglycerin (Nitroglycerin Patch), 0.4 MG TD DAILY, (Reported) Nut.tx.impaired Renal Fxn,Soy (Nepro Carb Steady), 45 ML GT DAILY, (Reported) Zinc Gluconate (Zinc Gluconate), 220 MG GT DAILY, (Reported) [Fe Sulfate 75MG/ML], 7.5 ML GT TID, (Reported) [Santyl ointment], 250 UNITS TOPIC DAILY, (Reported) Scheduled PRN Acetaminophen* (Acetaminophen 325MG Tablet*), 650 MG GT Q4H PRN for For Pain, ( Reported) Clonidine Hcl* (Catapres*), 0.1 MG GT EVERY 6 HOURS PRN for >HTN 160, (Reported) Glucagon HCl (Glucagon HCl), 1 MG IJ every 5 minutes x3 PRN for hypoglycemia, ( Reported) Insulin Lispro (Humalog), 0 SUBQ Q6HR PRN for Sliding Scale, (Reported) Ipratropium/Albuterol Sulfate (DuoNeb 0.5-3(2.5)mg/3ml), 3 ML HHN Q4HR PRN for Shortness of Breath, (Reported) Patient History Limited by: medical condition History Provided By: Medical Record, PMD Healthcare decision maker Resuscitation status Full Code Advanced Directive on File Yes Past Medical/Surgical History Past Medical/Surgical History: (1) Hyperkalemia (2) Anemia (3) Major depression (4) Pleural effusion (5) Renal failure (6) Seizure disorder (7) Sepsis (8) Diabetic nephropathy (9) Hypertension (10) Pneumonia (11) Shock (12) CKD (chronic kidney disease) (13) Abnormal LFTs (14) Rectal abnormality (15) Decubitus ulcer of sacral region, unstageable (16) Encephalopathy due to metabolic factor or toxin (17) Mass of right thigh (18) Lung nodule < 6cm on CT (19) MARK (acute kidney injury) Review of Systems Psychiatric: Reports: prior hx, anxiety, hallucinations Physical Exam General Appearance: confused, agitated Last 24 Hour Vital Signs Date Time Temp Pulse Resp B/P (MAP) Pulse Ox O2 Delivery O2 Flow Rate FiO2 05/15/18 00:56 148/64 05/14/18 21:07 81 158/108 05/14/18 21:07 81 158/108 05/14/18 21:00 Nasal Cannula 2.0 05/14/18 20:00 73 12/31/18 20:00 97.3 81 18 158/108 (125) 94 05/14/18 19:16 98 Nasal Cannula 2.0 28 05/14/18 17:25 149/75 05/14/18 15:52 97.7 77 20 149/75 (99) 99 05/14/18 15:27 74 05/14/18 12:27 152/109 05/14/18 12:00 98.2 79 20 152/109 (123) 98 05/14/18 11:44 73 05/14/18 09:18 80 157/73 05/14/18 09:18 157/73 05/14/18 09:18 80 157/73 05/14/18 09:00 Nasal Cannula 2.0 05/14/18 08:00 98.0 80 20 157/73 (101) 96 05/14/18 07:23 78 05/14/18 06:03 164/72 05/14/18 04:00 74 05/14/18 04:00 98.2 76 22 164/72 (102) 99 Intake and Output 05/14/18 05/15/18 19:00 07:00 Intake Total 1560 ml Balance 1560 ml Free Water 120 ml IV Total 900 ml Tube Feeding 540 ml # Bowel Movements 1 1 Laboratory Tests Test 05/14/18 04:55 White Blood Count 13.7 K/UL (4.8-10.8) H Red Blood Count 3.21 M/UL (4.20-5.40) L Hemoglobin 9.7 G/DL (12.0-16.0) L Hematocrit 29.6 % (37.0-47.0) L Mean Corpuscular Volume 92 FL (80-99) Mean Corpuscular Hemoglobin 30.1 PG (27.0-31.0) Mean Corpuscular Hemoglobin Concent 32.7 G/DL (32.0-36.0) Red Cell Distribution Width 13.5 % (11.6-14.8) Platelet Count 180 K/UL (150-450) Mean Platelet Volume 7.5 FL (6.5-10.1) Neutrophils (%) (Auto) 83.6 % (45.0-75.0) H Lymphocytes (%) (Auto) 6.9 % (20.0-45.0) L Monocytes (%) (Auto) 5.1 % (1.0-10.0) Eosinophils (%) (Auto) 2.6 % (0.0-3.0) Basophils (%) (Auto) 1.7 % (0.0-2.0) Sodium Level 144 MMOL/L (136-145) Potassium Level 4.2 MMOL/L (3.5-5.1) Chloride Level 110 MMOL/L (98-107) H Carbon Dioxide Level 22 MMOL/L (21-32) Anion Gap 12 mmol/L (5-15) Blood Urea Nitrogen 125 mg/dL (7-18) H Creatinine 3.7 MG/DL (0.55-1.30) H Estimat Glomerular Filtration Rate mL/min (>60) Glucose Level 242 MG/DL (74-106) H Uric Acid 6.8 MG/DL (2.6-7.2) Calcium Level 8.6 MG/DL (8.5-10.1) Phosphorus Level 5.1 MG/DL (2.5-4.9) H Magnesium Level 3.9 MG/DL (1.8-2.4) H Total Bilirubin 0.3 MG/DL (0.2-1.0) Aspartate Amino Transf (AST/SGOT) 17 U/L (15-37) Alanine Aminotransferase (ALT/SGPT) 17 U/L (12-78) Alkaline Phosphatase 136 U/L (46-116) H Troponin I 1.861 ng/mL (0.000-0.056) Pro-B-Type Natriuretic Peptide 6074 pg/mL (0-125) H Total Protein 7.1 G/DL (6.4-8.2) Albumin 2.3 G/DL (3.4-5.0) L Globulin 4.8 g/dL Albumin/Globulin Ratio 0.5 (1.0-2.7) L Height (Feet): 5 Height (Inches): 6.00 Weight (Pounds): 170 Medications Current Medications Medications (Trade) Dose Ordered Sig/Gelacio Route PRN Reason Start Time Stop Time Status Last Admin Dose Admin Acetaminophen (Tylenol) 650 mg Q4H PRN ORAL For Pain 05/10/18 21:00 06/09/18 20:59 Albuterol/ Ipratropium (Albuterol/ Ipratropium) 3 ml Q4H PRN HHN Shortness of Breath 05/10/18 21:00 05/15/18 20:59 05/12/18 15:28 Amlodipine Besylate (Norvasc) 5 mg Q12HR GT 05/14/18 21:00 06/13/18 20:59 05/14/18 21:07 Ascorbic Acid (Vitamin C) 500 mg TWICE A DAY GT 05/11/18 09:00 06/10/18 08:59 05/14/18 17:25 Aspirin (ASA) 81 mg DAILY GT 05/11/18 09:00 06/10/18 08:59 05/14/18 09:18 Clonidine HCl (Catapres Tab) 0.1 mg Q6H PRN GT >HTN 160 05/10/18 21:00 06/09/18 20:59 Dextrose (Dextrose 50%) 25 ml Q30M PRN IV Hypoglycemia 05/10/18 21:30 06/09/18 21:29 Dextrose (Dextrose 50%) 50 ml Q30M PRN IV Hypoglycemia 05/10/18 21:30 06/09/18 21:29 Epoetin Homer (Procrit (for non ESRD use)) 10,000 units MON-MON-MON SUBQ 05/11/18 21:00 06/10/18 20:59 05/14/18 21:07 Gabapentin (Neurontin) 100 mg THREE TIMES A DAY GT 05/11/18 09:00 06/10/18 08:59 05/14/18 17:25 Hydralazine HCl (Apresoline) 25 mg EVERY 6 HOURS GT 05/11/18 18:00 06/10/18 00:00 05/15/18 00:56 Insulin Aspart (NovoLOG) Q6HR SUBQ 05/12/18 06:00 06/10/18 06:29 05/15/18 00:57 Levetiracetam (Keppra) 750 mg BID GT 05/11/18 09:00 06/10/18 08:59 05/14/18 17:26 Metoprolol Tartrate (Lopressor) 50 mg EVERY 12 HOURS ORAL 05/10/18 22:00 06/09/18 21:59 05/14/18 21:07 Multivitamins (Multivitamins W/ Minerals 15ml Liquid) 15 ml DAILY GT 05/11/18 09:00 06/10/18 08:59 05/14/18 09:19 Nitroglycerin (Ntg) 1 patch DAILY TDERMAL 05/11/18 09:00 06/10/18 08:59 05/14/18 09:18 Pantoprazole (Protonix) 40 mg EVERY 12 HOURS IVP 05/10/18 21:00 06/09/18 20:59 05/14/18 21:07 Sevelamer Carbonate (Renvela) 800 mg THREE TIMES A DAY NG 05/12/18 09:00 06/11/18 08:59 05/14/18 17:26 Sodium Chloride 1,000 ml @ 75 mls/hr [id number] IV 05/10/18 18:30 06/09/18 18:29 05/14/18 10:59 Assessment/Plan Problem List: (1) encephalopathy due to metabolic factor Assessment/Plan seroquel prn the pt lacks capacity to make decisions. China Kidd MD May 15, 2018 01:41
[2018-05-15 04:00] VITALS: BP 159/55
[2018-05-15 08:00] VITALS: BP 179/69
[2018-05-15] MEDS: Nitroglycerin Patch 0.4mg TDERMAL SCH (09:07)
[2018-05-15] MEDS: Renvela 800mg Pkt NG SCH ×3 (09:10→17:49)
[2018-05-15] MEDS: Ascorbic Acid 500mg tab GT SCH ×2 (09:10→17:49)
[2018-05-15] MEDS: Aspirin Baby 81mg GT SCH (09:10)
[2018-05-15] MEDS: Metoprolol Tartrate 50mg tab ORAL SCH ×2 (09:10→21:39)
[2018-05-15] MEDS: Multivitamins W/Minerals 15 ML UDC GT SCH (09:11)
[2018-05-15] MEDS: Pantoprazole Inj IVP SCH ×2 (09:12→21:38)
[2018-05-15] MEDS: levETIRAcetam 500mg/5ml Liquid GT SCH ×2 (09:28→17:49)
[2018-05-15 12:00] VITALS: BP 167/52
--- NOTE | 2018-05-15 12:24 | Nephrology Progress Note ---
Assessment/Plan Problem List: (1) MARK (acute kidney injury) (2) Anemia (3) Diabetic nephropathy (4) Cardiac ischemia Assessment: elevated troponin Assessment acute on chronic renal failure: Dehydration DM / Proteinuria / HypoAlbuminemia Encephalopathy due to metabolic factor or toxin Hypoglycemia Anemia Decubitus ulcer of sacral region, unstageable PEG (percutaneous endoscopic gastrostomy) status Plan Nitrate- Up dose Hydralazine- 24 h urine Cr Cl and Protein Cr lower Hydrate- Monitor BS- Anemia conn avoid Nephrotoxics Monitor renal parameters Subjective ROS Limited/Unobtainable: No Constitutional: Reports: malaise, weakness Objective Objective Last 24 Hour Vital Signs Date Time Temp Pulse Resp B/P (MAP) Pulse Ox O2 Delivery O2 Flow Rate FiO2 05/15/18 12:15 139/88 05/15/18 09:10 80 179/69 05/15/18 09:10 80 179/69 05/15/18 09:07 179/69 05/15/18 06:34 159/55 05/15/18 04:00 97.7 81 18 159/55 (89) 96 05/15/18 04:00 77 05/15/18 00:56 148/64 05/15/18 00:00 98.2 76 18 148/64 (92) 95 05/15/18 00:00 71 05/14/18 21:07 81 158/108 05/14/18 21:07 81 158/108 05/14/18 21:00 Nasal Cannula 2.0 05/14/18 20:00 73 05/14/18 20:00 97.3 81 18 158/108 (125) 94 05/14/18 19:16 98 Nasal Cannula 2.0 28 05/14/18 17:25 149/75 05/14/18 15:52 97.7 77 20 149/75 (99) 99 05/14/18 15:27 74 05/14/18 12:27 152/109 Intake and Output 05/14/18 05/15/18 18:59 06:59 Intake Total 1380 ml 180 ml Output Total 1200 ml Balance 1380 ml -1020 ml Free Water 60 ml 60 ml IV Total 825 ml 75 ml Tube Feeding 495 ml 45 ml Output Urine Total 1200 ml # Bowel Movements 1 1 Laboratory Tests 05/15/18 08:30: Troponin I 1.357H Height (Feet): 5 Height (Inches): 6.00 Weight (Pounds): 170 General Appearance: no apparent distress, lethargic Cardiovascular: normal rate Respiratory/Chest: decreased breath sounds Abdomen: distended Phil Ortiz MD May 15, 2018 12:24
--- NOTE | 2018-05-15 15:33 | Cardiac Electrophysiology PN ---
Assessment/Plan Assessment/Plan 1. Paroxysmal atrial fibrillation, currently in sinus rhythm. Continue metoprolol 50 mg b.i.d and aspirin. 2. Hypertension, on Toprol 50 mg bid, Norvasc 5 mg daily and hydralazine 25 q6hr 3. Right femoral pseudoaneurysm, status post thrombin injection. 4. History of pleural effusion, status post thoracentesis. 5. Acute renal failure. 125/3.7. FU Dr. Ortiz 6. Dysphagia, status post PEG placement. 7. Dementia. 8. Troponin leak 1.86 and 1.35. Non verbal. ECG showed RBBB with no change. Due to renal failure. No further troponin 9. DNR DW RN Subjective Subjective Nonverbal with no events. G tube feeding on going. On NS 75cc/hr. Troponin elevation no changed. DNR Objective Last 24 Hour Vital Signs Date Time Temp Pulse Resp B/P (MAP) Pulse Ox O2 Delivery O2 Flow Rate FiO2 05/15/18 13:14 167/52 05/15/18 12:48 72 05/15/18 12:15 139/88 05/15/18 12:00 79 05/15/18 12:00 98.7 72 18 167/52 (90) 98 05/15/18 09:10 80 179/69 05/15/18 09:10 80 179/69 05/15/18 09:07 179/69 05/15/18 09:00 Nasal Cannula 2.0 05/15/18 08:00 79 05/15/18 08:00 98.6 79 18 179/69 (105) 98 05/15/18 06:34 159/55 05/15/18 04:00 97.7 81 18 159/55 (89) 96 05/15/18 04:00 77 05/15/18 00:56 148/64 05/15/18 00:00 98.2 76 18 148/64 (92) 95 05/15/18 00:00 71 05/14/18 21:07 81 158/108 05/14/18 21:07 81 158/108 05/14/18 21:00 Nasal Cannula 2.0 05/14/18 20:00 73 05/14/18 20:00 97.3 81 18 158/108 (125) 94 05/14/18 19:16 98 Nasal Cannula 2.0 28 05/14/18 17:25 149/75 05/14/18 15:52 97.7 77 20 149/75 (99) 99 Intake and Output 05/14/18 05/15/18 18:59 06:59 Intake Total 1380 ml 180 ml Output Total 1200 ml Balance 1380 ml -1020 ml Free Water 60 ml 60 ml IV Total 825 ml 75 ml Tube Feeding 495 ml 45 ml Output Urine Total 1200 ml # Bowel Movements 1 1 Laboratory Tests Test 05/15/18 08:30 Troponin I 1.357 ng/mL (0.000-0.056) C-Reactive Protein, Quantitative 34.1 mg/dL (0.00-0.90) H Objective HEAD AND NECK: No JVD. LUNGS: Coarse rhonchi. CARDIOVASCULAR: Regular S1 and S2 with no gallop or murmur. ABDOMEN: Soft with G-tube. EXTREMITIES: Right groin hematoma is stable. Sacral decubitus Everett Nair MD May 15, 2018 15:33
[2018-05-15 16:00] VITALS: BP 158/80
--- NOTE | 2018-05-15 16:49 | Pulmonology Progress Note ---
Assessment/Plan Assessment/Plan Pulmonary Progress Note Assessment/Plan Assessment/Plan 82 F NHR non-verbal, prior CVA, recent admission with sepsis, dysphagia S/P PEG BIB EMS with MARK on CKD, likely dehydration. Optimize pulmonary hygiene/mobilize as tolerated PRN O2 PRN HHN's prn CXR Observe off Abx Monitor electrolytes and renal function, IVF per renal Wound care TF's DVT Px: Hep SQ DNAR/DNI, continue to discuss GOC, consider supportive care evaluation dc planning per primary Subjective ROS Limited/Unobtainable: Yes Allergies: Coded Allergies: PENICILLINS (Unverified Allergy, Mild, 04/20/18) 04/20/18- Patient has been on pip-tazo for this admission since 04/15/18 as well as previous admission. Pt has Penicillin allergy on profile-unknown reactions. Mirza Gallo and Belgica French aware of allergy and are okay with continuing with pip-tazo. No reactions noted Subjective obtunded no distress tolerating tf no reports of pain not getting oob on o2 Objective Vital Signs Noted General Appearance: WD/WN Respiratory/Chest: lungs clear Cardiovascular: normal rate, regular rhythm, murmur systolic, edema Abdomen: no organomegaly, non distended Neurologic/Psychiatric: disoriented, unresponsiveness Laboratory Tests 05/13/18 11:25: C-Reactive Protein, Quantitative 18.9H Current Medications Medications (Trade) Dose Ordered Sig/Gelacio Route PRN Reason Start Time Stop Time Status Last Admin Dose Admin Acetaminophen (Tylenol) 650 mg Q4H PRN ORAL For Pain 05/10/18 21:00 06/09/18 20:59 Albuterol/ Ipratropium (Albuterol/ Ipratropium) 3 ml Q4H PRN HHN Shortness of Breath 05/10/18 21:00 05/15/18 20:59 05/12/18 15:28 Amlodipine Besylate (Norvasc) 5 mg DAILY GT 05/12/18 09:00 06/10/18 08:59 05/13/18 09:25 Ascorbic Acid (Vitamin C) 500 mg TWICE A DAY GT 05/11/18 09:00 06/10/18 08:59 05/13/18 17:33 Aspirin (ASA) 81 mg DAILY GT 05/11/18 09:00 06/10/18 08:59 05/13/18 09:24 Clonidine HCl (Catapres Tab) 0.1 mg Q6H PRN GT >HTN 160 05/10/18 21:00 06/09/18 20:59 Dextrose (Dextrose 50%) 25 ml Q30M PRN IV Hypoglycemia 05/10/18 21:30 06/09/18 21:29 Dextrose (Dextrose 50%) 50 ml Q30M PRN IV Hypoglycemia 05/10/18 21:30 06/09/18 21:29 Epoetin Homer (Procrit (for non ESRD use)) 10,000 units MON- SUBQ 05/11/18 21:00 06/10/18 20:59 05/11/18 21:06 Gabapentin (Neurontin) 100 mg THREE TIMES A DAY GT 05/11/18 09:00 06/10/18 08:59 05/13/18 17:33 Hydralazine HCl (Apresoline) 25 mg EVERY 6 HOURS GT 05/11/18 18:00 06/10/18 00:00 05/13/18 17:33 Insulin Aspart (NovoLOG) Q6HR SUBQ 05/12/18 06:00 06/10/18 06:29 05/13/18 17:40 Levetiracetam (Keppra) 750 mg BID GT 05/11/18 09:00 06/10/18 08:59 05/13/18 17:34 Metoprolol Tartrate (Lopressor) 50 mg EVERY 12 HOURS ORAL 05/10/18 22:00 06/09/18 21:59 05/13/18 09:29 Multivitamins (Multivitamins W/ Minerals 15ml Liquid) 15 ml DAILY GT 05/11/18 09:00 06/10/18 08:59 05/13/18 09:24 Nitroglycerin (Ntg) 1 patch DAILY TDERMAL 05/11/18 09:00 06/10/18 08:59 05/13/18 09:30 Pantoprazole (Protonix) 40 mg EVERY 12 HOURS IVP 05/10/18 21:00 06/09/18 20:59 05/13/18 09:24 Sevelamer Carbonate (Renvela) 800 mg THREE TIMES A DAY NG 05/12/18 09:00 06/11/18 08:59 05/13/18 17:33 Sodium Chloride 1,000 ml @ 75 mls/hr [id number] IV 05/10/18 18:30 06/09/18 18:29 05/13/18 12:29 Subjective ROS Limited/Unobtainable: No Allergies: Coded Allergies: PENICILLINS (Unverified Allergy, Mild, 04/20/18) 04/20/18- Patient has been on pip-tazo for this admission since 04/15/18 as well as previous admission. Pt has Penicillin allergy on profile-unknown reactions. Mirza Gallo and Belgica French aware of allergy and are okay with continuing with pip-tazo. No reactions noted Objective Last 24 Hour Vital Signs Date Time Temp Pulse Resp B/P (MAP) Pulse Ox O2 Delivery O2 Flow Rate FiO2 05/15/18 16:00 98.2 73 18 158/80 (106) 98 05/15/18 16:00 73 05/15/18 13:14 167/52 05/15/18 12:48 72 05/15/18 12:15 139/88 05/15/18 12:00 79 05/15/18 12:00 98.7 72 18 167/52 (90) 98 05/15/18 09:10 80 179/69 05/15/18 09:10 80 179/69 05/15/18 09:07 179/69 05/15/18 09:00 Nasal Cannula 2.0 05/15/18 08:00 79 05/15/18 08:00 98.6 79 18 179/69 (105) 98 05/15/18 06:34 159/55 05/15/18 04:00 97.7 81 18 159/55 (89) 96 05/15/18 04:00 77 05/15/18 00:56 148/64 05/15/18 00:00 98.2 76 18 148/64 (92) 95 05/15/18 00:00 71 05/14/18 21:07 81 158/108 05/14/18 21:07 81 158/108 05/14/18 21:00 Nasal Cannula 2.0 05/14/18 20:00 73 05/14/18 20:00 97.3 81 18 158/108 (125) 94 05/14/18 19:16 98 Nasal Cannula 2.0 28 12/31/18 17:25 149/75 Intake and Output 05/14/18 05/15/18 19:00 07:00 Intake Total 1560 ml Output Total 1200 ml Balance 1560 ml -1200 ml Free Water 120 ml IV Total 900 ml Tube Feeding 540 ml Output Urine Total 1200 ml # Bowel Movements 1 1 Laboratory Tests 05/15/18 08:30: Troponin I 1.357H, C-Reactive Protein, Quantitative 34.1H Current Medications Medications (Trade) Dose Ordered Sig/Gelacio Route PRN Reason Start Time Stop Time Status Last Admin Dose Admin Acetaminophen (Tylenol) 650 mg Q4H PRN ORAL For Pain 05/10/18 21:00 06/09/18 20:59 Albuterol/ Ipratropium (Albuterol/ Ipratropium) 3 ml Q4H PRN HHN Shortness of Breath 05/10/18 21:00 05/15/18 20:59 05/12/18 15:28 Amlodipine Besylate (Norvasc) 5 mg Q12HR GT 05/14/18 21:00 06/13/18 20:59 05/15/18 09:10 Ascorbic Acid (Vitamin C) 500 mg TWICE A DAY GT 05/11/18 09:00 06/10/18 08:59 05/15/18 09:10 Aspirin (ASA) 81 mg DAILY GT 05/11/18 09:00 06/10/18 08:59 05/15/18 09:10 Clonidine HCl (Catapres Tab) 0.1 mg Q6H PRN GT >HTN 160 05/10/18 21:00 06/09/18 20:59 Dextrose (Dextrose 50%) 25 ml Q30M PRN IV Hypoglycemia 05/10/18 21:30 06/09/18 21:29 Dextrose (Dextrose 50%) 50 ml Q30M PRN IV Hypoglycemia 05/10/18 21:30 06/09/18 21:29 Epoetin Homer (Procrit (for non ESRD use)) 10,000 units MON-WED-MON SUBQ 05/11/18 21:00 06/10/18 20:59 05/14/18 21:07 Gabapentin (Neurontin) 100 mg THREE TIMES A DAY GT 05/11/18 09:00 06/10/18 08:59 05/15/18 12:15 Hydralazine HCl (Apresoline) 50 mg EVERY 6 HOURS GT 05/15/18 18:00 06/10/18 00:00 Insulin Aspart (NovoLOG) Q6HR SUBQ 05/12/18 06:00 06/10/18 06:29 05/15/18 12:16 Isosorbide Dinitrate (Isordil) 10 mg Q6HR GT 05/15/18 18:00 06/14/18 17:59 Levetiracetam (Keppra) 750 mg BID GT 05/11/18 09:00 06/10/18 08:59 05/15/18 09:28 Metoprolol Tartrate (Lopressor) 50 mg EVERY 12 HOURS ORAL 05/10/18 22:00 06/09/18 21:59 05/15/18 09:10 Multivitamins (Multivitamins W/ Minerals 15ml Liquid) 15 ml DAILY GT 05/11/18 09:00 06/10/18 08:59 05/15/18 09:11 Nitroglycerin (Ntg) 1 patch DAILY TDERMAL 05/11/18 09:00 06/10/18 08:59 05/15/18 09:07 Pantoprazole (Protonix) 40 mg EVERY 12 HOURS IVP 05/10/18 21:00 06/09/18 20:59 05/15/18 09:12 Sevelamer Carbonate (Renvela) 800 mg THREE TIMES A DAY NG 05/12/18 09:00 06/11/18 08:59 05/15/18 12:15 Sodium Chloride 1,000 ml @ 75 mls/hr [id number] IV 05/10/18 18:30 06/09/18 18:29 05/14/18 10:59 Brian Cardona MD May 15, 2018 16:49
[2018-05-15 20:00] VITALS: BP 153/46
--- NOTE | 2018-05-15 20:45 | General Progress Note ---
Assessment/Plan Assessment/Plan # Acute kidney injury potentially medication v dehydration related --> losartan has been discontinued --> as per renal recs, reviewed --> trend bmp # Hypertension, on Toprol 50 mg b.i.d. as well as Norvasc 5 mg daily --> bp better controlled as per cardiology --> meds adjusted # Right femoral pseudoaneurysm, status post thrombin injection. # History of pleural effusion, status post thoracentesis. # Paroxysmal atrial fibrillation. The patient is currently in sinus rhythm. --> Continue metoprolol 50 mg b.i.d. At this time, the patient is off anticoagulation except for aspirin. # Dysphagia, status post PEG placement. # Dementia. # DM / Proteinuria / HypoAlbuminemia # Encephalopathy due to metabolic factor or toxin # Hypoglycemia # Anemia # Decubitus ulcer of sacral region, unstageable Time of service does not reflect necessarily time of encounter. Subjective Constitutional: Denies: no symptoms, chills, diaphoresis, fever, malaise, weakness, other HEENT: Denies: no symptoms, eye pain, blurred vision, tearing, double vision, ear pain, ear discharge, nose pain, nose congestion, throat pain, throat swelling, mouth pain, mouth swelling, other Cardiovascular: Denies: no symptoms, chest pain, edema, irregular heart rate, lightheadedness, palpitations, syncope, other Respiratory: Denies: no symptoms, cough, orthopnea, shortness of breath, SOB with excertion, SOB at rest, sputum, stridor, wheezing, other Gastrointestinal/Abdominal: Denies: no symptoms, abdomen distended, abdominal pain, black stools, tarry stools, blood in stool, constipated, diarrhea, difficulty swallowing, nausea, poor appetite, poor fluid intake, rectal bleeding , vomiting, other Genitourinary: Denies: no symptoms, burning, discharge, frequency, flank pain, hematuria, incontinence, pain, urgency, other Allergies: Coded Allergies: PENICILLINS (Unverified Allergy, Mild, 04/20/18) 04/20/18- Patient has been on pip-tazo for this admission since 04/15/18 as well as previous admission. Pt has Penicillin allergy on profile-unknown reactions. Mirza Gallo and Belgica Padillaan aware of allergy and are okay with continuing with pip-tazo. No reactions noted Subjective Pt resting in bed. No acute events. VS stable. 05/13: no events, in bed, lowest position, peg tube+, no complaints 05/15: no events, dnr, dni, nonverbal, no fevers Objective Last 24 Hour Vital Signs Date Time Temp Pulse Resp B/P (MAP) Pulse Ox O2 Delivery O2 Flow Rate FiO2 05/15/18 17:50 158/80 05/15/18 17:49 158/80 05/15/18 16:00 98.2 73 18 158/80 (106) 98 05/15/18 16:00 73 05/15/18 13:14 167/52 05/15/18 12:48 72 05/15/18 12:15 139/88 05/15/18 12:00 98.7 72 18 167/52 (90) 98 05/15/18 09:10 80 179/69 05/15/18 09:10 80 179/69 05/15/18 09:07 179/69 05/15/18 09:00 Nasal Cannula 2.0 05/15/18 08:00 79 05/15/18 08:00 98.6 79 18 179/69 (105) 98 05/15/18 06:34 159/55 05/15/18 04:00 97.7 81 18 159/55 (89) 96 05/15/18 04:00 77 05/15/18 00:56 148/64 05/15/18 00:00 98.2 76 18 148/64 (92) 95 05/15/18 00:00 71 05/14/18 21:07 81 158/108 05/14/18 21:07 81 158/108 05/14/18 21:00 Nasal Cannula 2.0 Intake and Output 05/14/18 05/15/18 19:00 07:00 Intake Total 1560 ml Output Total 1200 ml Balance 1560 ml -1200 ml Free Water 120 ml IV Total 900 ml Tube Feeding 540 ml Output Urine Total 1200 ml # Bowel Movements 1 1 Laboratory Tests 05/15/18 08:30: Troponin I 1.357H, C-Reactive Protein, Quantitative 34.1H Height (Feet): 5 Height (Inches): 6.00 Weight (Pounds): 170 Objective PE: VITAL SIGNS: Have been reviewed. HEAD AND NECK: Shows no JVD LUNGS: Coarse rhonchi. CARDIOVASCULAR: Shows regular S1 and S2 with no gallop or murmur. ABDOMEN: Soft with G-tube. EXTREMITIES: Right groin hematoma is stable. Aleksandr Kern MD May 15, 2018 20:45
--- NOTE | 2018-05-15 22:01 | General Progress Note ---
Assessment/Plan Problem List: (1) Anemia ICD Codes: D64.9 - Anemia, unspecified SNOMED: 497034470 (2) Pleural effusion ICD Codes: J90 - Pleural effusion, not elsewhere classified SNOMED: 53060142 (3) Renal failure ICD Codes: N19 - Unspecified kidney failure SNOMED: 89680177 (4) Diabetic nephropathy ICD Codes: E11.21 - Type 2 diabetes mellitus with diabetic nephropathy SNOMED: 63139552, 277487653 (5) Hypertension ICD Codes: I10 - Essential (primary) hypertension SNOMED: 96627460 (6) CKD (chronic kidney disease) ICD Codes: N18.9 - Chronic kidney disease, unspecified SNOMED: 971492100 (7) Decubitus ulcer of sacral region, unstageable ICD Codes: L89.150 - Pressure ulcer of sacral region, unstageable SNOMED: 863205938, 505822650 (8) Mass of right thigh ICD Codes: R22.41 - Localized swelling, mass and lump, right lower limb SNOMED: 077739886 (9) MARK (acute kidney injury) ICD Codes: N17.9 - Acute kidney failure, unspecified SNOMED: 30683855 Status: progressing Assessment/Plan renal failue on top of cri anemia lyte abnormality h/o decub wound elevated trop favor conservative management considering 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 Pt has Penicillin allergy on profile-unknown reactions. Mirza Gallo and Belgica French aware of allergy and are okay with continuing with pip-tazo. No reactions noted Objective Last 24 Hour Vital Signs Date Time Temp Pulse Resp B/P (MAP) Pulse Ox O2 Delivery O2 Flow Rate FiO2 05/15/18 21:39 71 153/46 05/15/18 21:39 71 153/46 05/15/18 20:00 98.6 71 18 153/46 (81) 94 05/15/18 17:50 158/80 05/15/18 17:49 158/80 05/15/18 16:00 98.2 73 18 158/80 (106) 98 05/15/18 16:00 73 05/15/18 13:14 167/52 05/15/18 12:48 72 05/15/18 12:15 139/88 05/15/18 12:00 98.7 72 18 167/52 (90) 98 05/15/18 09:10 80 179/69 05/15/18 09:10 80 179/69 05/15/18 09:07 179/69 05/15/18 09:00 Nasal Cannula 2.0 05/15/18 08:00 79 05/15/18 08:00 98.6 79 18 179/69 (105) 98 05/15/18 06:34 159/55 05/15/18 04:00 97.7 81 18 159/55 (89) 96 05/15/18 04:00 77 05/15/18 00:56 148/64 05/15/18 00:00 98.2 76 18 148/64 (92) 95 05/15/18 00:00 71 Intake and Output 05/14/18 05/15/18 19:00 07:00 Intake Total 1560 ml Output Total 1200 ml Balance 1560 ml -1200 ml Free Water 120 ml IV Total 900 ml Tube Feeding 540 ml Output Urine Total 1200 ml # Bowel Movements 1 1 Laboratory Tests 05/15/18 08:30: Troponin I 1.357H, C-Reactive Protein, Quantitative 34.1H Height (Feet): 5 Height (Inches): 6.00 Weight (Pounds): 170 Neck: supple Cardiovascular: normal rate Respiratory/Chest: lungs clear Abdomen: soft Krzysztof Schneider MD May 15, 2018 22:01
[2018-05-16] VITALS: BP 145/51
[2018-05-16] MEDS: HydrALAZINE 25mg tab GT SCH ×3 (00:59→12:28)
[2018-05-16] MEDS: NovoLOG Insulin Flexpen SUBQ SCH ×4 (01:01→17:57)
[2018-05-16 04:00] VITALS: BP 148/55
[2018-05-16 06:57] LABS: BASOPHILS % (AUTO) 0.8 % (0.0-2.0); EOSINOPHILS % (AUTO) 3.6 % (0.0-3.0); HEMOGLOBIN 8.6 G/DL (12.0-16.0); LYMPHOCYTES % (AUTO) 10.8 % (20.0-45.0); MEAN CORPUSCULAR VOLUME 93 FL (80-99); MONOCYTES % (AUTO) 6.9 % (1.0-10.0); PLATELET COUNT 179 K/UL (150-450); RED BLOOD COUNT 2.89 M/UL (4.20-5.40); RED CELL DISTRIBUTION WIDTH 13.7 % (11.6-14.8); WHITE BLOOD COUNT 11.1 K/UL (4.8-10.8)
[2018-05-16 07:18] LABS: ALANINE AMINOTRANSFERASE 14 U/L (12-78); ALBUMIN/GLOBULIN RATIO 0.4 (1.0-2.7); ALKALINE PHOSPHATASE 112 U/L (46-116); ANION GAP 10 mmol/L (5-15); ASPARTATE AMINO TRANSFERASE 11 U/L (15-37); BILIRUBIN,TOTAL 0.3 MG/DL (0.2-1.0); BLOOD UREA NITROGEN 113 mg/dL (7-18); CALCIUM 8.7 MG/DL (8.5-10.1); CARBON DIOXIDE 22 MMOL/L (21-32); CHLORIDE 111 MMOL/L (98-107); CREATININE 3.6 MG/DL (0.55-1.30); PHOSPHORUS 3.6 MG/DL (2.5-4.9); POTASSIUM 3.7 MMOL/L (3.5-5.1); SODIUM 143 MMOL/L (136-145)
[2018-05-16 08:00] VITALS: BP 182/65
[2018-05-16] MEDS: Metoprolol Tartrate 50mg tab ORAL SCH (08:50)
[2018-05-16] MEDS: Aspirin Baby 81mg GT SCH (08:51)
[2018-05-16] MEDS: Ascorbic Acid 500mg tab GT SCH ×2 (08:51→17:53)
[2018-05-16] MEDS: Nitroglycerin Patch 0.4mg TDERMAL SCH (08:51)
[2018-05-16] MEDS: Pantoprazole Inj IVP SCH (08:52)
[2018-05-16] MEDS: Multivitamins W/Minerals 15 ML UDC GT SCH (08:52)
[2018-05-16] MEDS: Renvela 800mg Pkt NG SCH ×2 (08:52→12:28)
[2018-05-16] MEDS: levETIRAcetam 500mg/5ml Liquid GT SCH ×2 (08:53→18:07)
--- NOTE | 2018-05-16 10:35 | Pulmonology Progress Note ---
Assessment/Plan Assessment/Plan 82 F NHR non-verbal, prior CVA, recent admission with sepsis, dysphagia S/P PEG BIB EMS with MARK on CKD, likely dehydration. Optimize pulmonary hygiene/mobilize as tolerated PRN O2 PRN HHN's Observe off Abx Monitor electrolytes and renal function, F/U renal recs Wound care TF's DVT Px: Hep SQ DNAR/DNI, continue to discuss GOC, consider supportive care evaluation dc planning per primary Subjective Allergies: Coded Allergies: PENICILLINS (Unverified Allergy, Mild, 04/20/18) 04/20/18- Patient has been on pip-tazo for this admission since 04/15/18 as well as previous admission. Pt has Penicillin allergy on profile-unknown reactions. Mirza Gallo and [place] French aware of allergy and are okay with continuing with pip-tazo. No reactions noted Subjective AFVSS O2 needs stable chet TF no distress Objective Last 24 Hour Vital Signs Date Time Temp Pulse Resp B/P (MAP) Pulse Ox O2 Delivery O2 Flow Rate FiO2 05/16/18 08:51 182/65 05/16/18 08:50 83 182/65 05/16/18 08:50 83 182/65 05/16/18 08:00 79 05/16/18 08:00 98.5 79 18 182/65 (104) 98 05/16/18 07:24 80 19 Nasal Cannula 2.0 28 05/16/18 07:23 Nasal Cannula 2.0 28 05/16/18 07:23 96 Nasal Cannula 2.0 28 05/16/18 06:55 148/55 05/16/18 06:00 148/55 05/16/18 04:00 98.5 73 18 148/55 (86) 98 05/16/18 04:00 67 05/16/18 00:59 145/51 05/16/18 00:59 145/51 05/16/18 00:34 Nasal Cannula 2.0 28 05/16/18 00:33 98 Nasal Cannula 2.0 28 05/16/18 00:00 99.1 66 18 145/51 (82) 100 05/16/18 00:00 61 05/15/18 21:39 71 153/46 05/15/18 21:39 71 153/46 05/15/18 21:00 Nasal Cannula 2.0 05/15/18 20:00 98.6 71 18 153/46 (81) 94 05/15/18 17:50 158/80 05/15/18 17:49 158/80 05/15/18 16:00 98.2 73 18 158/80 (106) 98 05/15/18 16:00 73 05/15/18 13:14 167/52 05/15/18 12:48 72 05/15/18 12:15 139/88 05/15/18 12:00 98.7 72 18 167/52 (90) 98 Intake and Output 05/15/18 05/16/18 18:59 06:59 Output Total 600 ml Balance -600 ml Output Urine Total 600 ml # Bowel Movements 1 1 General Appearance: no acute distress, cachetic, other - non-verbal HEENT: normocephalic, atraumatic, mucous membranes moist Respiratory/Chest: chest wall non-tender, lungs clear, normal breath sounds, no respiratory distress, no accessory muscle use Cardiovascular: normal peripheral pulses, normal rate, regular rhythm Abdomen: normal bowel sounds, soft, non tender, no organomegaly, non distended , no mass, other - GT Extremities: no cyanosis, no clubbing, other - 1+ edema Laboratory Tests 05/16/18 05:26: White Blood Count 11.1H, Red Blood Count 2.89L, Hemoglobin 8.6L, Hematocrit 27.0L, Mean Corpuscular Volume 93, Mean Corpuscular Hemoglobin 29.9, Mean Corpuscular Hemoglobin Concent 32.0, Red Cell Distribution Width 13.7, Platelet Count 179, Mean Platelet Volume 7.7, Neutrophils (%) (Auto) 78.0H, Lymphocytes ( %) (Auto) 10.8L, Monocytes (%) (Auto) 6.9, Eosinophils (%) (Auto) 3.6H, Basophils (%) (Auto) 0.8, Sodium Level 143, Potassium Level 3.7, Chloride Level 111H, Carbon Dioxide Level 22, Anion Gap 10, Blood Urea Nitrogen 113H, Creatinine 3.6H, Estimat Glomerular Filtration Rate , Glucose Level 258H, Uric Acid 6.3, Calcium Level 8.7, Phosphorus Level 3.6, Magnesium Level 3.4H, Total Bilirubin 0.3, Aspartate Amino Transf (AST/SGOT) 11L, Alanine Aminotransferase ( ALT/SGPT) 14, Alkaline Phosphatase 112, Pro-B-Type Natriuretic Peptide 7053H, Total Protein 6.7, Albumin 2.0L, Globulin 4.7, Albumin/Globulin Ratio 0.4L Current Medications Medications (Trade) Dose Ordered Sig/Gelacio Route PRN Reason Start Time Stop Time Status Last Admin Dose Admin Acetaminophen (Tylenol) 650 mg Q4H PRN ORAL For Pain 05/10/18 21:00 06/09/18 20:59 Amlodipine Besylate (Norvasc) 5 mg Q12HR GT 05/14/18 21:00 06/13/18 20:59 05/16/18 08:50 Ascorbic Acid (Vitamin C) 500 mg TWICE A DAY GT 05/11/18 09:00 06/10/18 08:59 05/16/18 08:51 Aspirin (ASA) 81 mg DAILY GT 05/11/18 09:00 06/10/18 08:59 05/16/18 08:51 Clonidine HCl (Catapres Tab) 0.1 mg Q6H PRN GT >HTN 160 05/10/18 21:00 06/09/18 20:59 Dextrose (Dextrose 50%) 25 ml Q30M PRN IV Hypoglycemia 05/10/18 21:30 06/09/18 21:29 Dextrose (Dextrose 50%) 50 ml Q30M PRN IV Hypoglycemia 05/10/18 21:30 06/09/18 21:29 Epoetin Homer (Procrit (for non ESRD use)) 10,000 units MON-MON-MON SUBQ 05/11/18 21:00 06/10/18 20:59 05/14/18 21:07 Gabapentin (Neurontin) 100 mg THREE TIMES A DAY GT 05/11/18 09:00 06/10/18 08:59 05/16/18 08:50 Hydralazine HCl (Apresoline) 50 mg EVERY 6 HOURS GT 05/15/18 18:00 06/10/18 00:00 05/16/18 00:59 Insulin Aspart (NovoLOG) Q6HR SUBQ 05/12/18 06:00 06/10/18 06:29 05/16/18 06:00 Isosorbide Dinitrate (Isordil) 10 mg Q6HR GT 05/15/18 18:00 06/14/18 17:59 05/16/18 06:55 Levetiracetam (Keppra) 750 mg BID GT 05/11/18 09:00 06/10/18 08:59 05/16/18 08:53 Metoprolol Tartrate (Lopressor) 50 mg EVERY 12 HOURS ORAL 05/10/18 22:00 06/09/18 21:59 05/16/18 08:50 Multivitamins (Multivitamins W/ Minerals 15ml Liquid) 15 ml DAILY GT 05/11/18 09:00 06/10/18 08:59 05/16/18 08:52 Nitroglycerin (Ntg) 1 patch DAILY TDERMAL 05/11/18 09:00 06/10/18 08:59 05/16/18 08:51 Pantoprazole (Protonix) 40 mg EVERY 12 HOURS IVP 05/10/18 21:00 06/09/18 20:59 05/16/18 08:52 Sevelamer Carbonate (Renvela) 800 mg THREE TIMES A DAY NG 05/12/18 09:00 06/11/18 08:59 05/16/18 08:52 Sodium Chloride 1,000 ml @ 75 mls/hr [id number] IV 05/10/18 18:30 06/09/18 18:29 05/16/18 08:53 Javon Gan MD May 16, 2018 10:35
[2018-05-16 12:00] VITALS: BP 166/64
--- NOTE | 2018-05-16 12:44 | Nephrology Progress Note ---
Assessment/Plan Problem List: (1) MARK (acute kidney injury) (2) Anemia (3) Diabetic nephropathy (4) Cardiac ischemia Assessment: elevated troponin Assessment acute on chronic renal failure: Dehydration DM / Proteinuria / HypoAlbuminemia Encephalopathy due to metabolic factor or toxin Hypoglycemia Anemia Decubitus ulcer of sacral region, unstageable PEG (percutaneous endoscopic gastrostomy) status Plan Nitrate- Up dose Hydralazine- 24 h urine Cr Cl and Protein in process Cr lower Hydrate- Monitor BS- Anemia conn avoid Nephrotoxics Monitor renal parameters in view of DNR , OK to DC after completion of 24 h urine collection Subjective ROS Limited/Unobtainable: No Constitutional: Reports: malaise, weakness Objective Objective Last 24 Hour Vital Signs Date Time Temp Pulse Resp B/P (MAP) Pulse Ox O2 Delivery O2 Flow Rate FiO2 05/16/18 12:28 166/64 05/16/18 12:28 166/64 05/16/18 08:51 182/65 05/16/18 08:50 83 182/65 05/16/18 08:50 83 182/65 05/16/18 08:00 79 05/16/18 08:00 98.5 79 18 182/65 (104) 98 05/16/18 07:24 80 19 Nasal Cannula 2.0 28 05/16/18 07:23 Nasal Cannula 2.0 28 05/16/18 07:23 96 Nasal Cannula 2.0 28 05/16/18 06:55 148/55 05/16/18 06:00 148/55 05/16/18 04:00 98.5 73 18 148/55 (86) 98 05/16/18 04:00 67 05/16/18 00:59 145/51 05/16/18 00:59 145/51 05/16/18 00:34 Nasal Cannula 2.0 28 05/16/18 00:33 98 Nasal Cannula 2.0 28 05/16/18 00:00 99.1 66 18 145/51 (82) 100 05/16/18 00:00 61 05/15/18 21:39 71 153/46 05/15/18 21:39 71 153/46 05/15/18 21:00 Nasal Cannula 2.0 05/15/18 20:00 98.6 71 18 153/46 (81) 94 05/15/18 17:50 158/80 05/15/18 17:49 158/80 05/15/18 16:00 98.2 73 18 158/80 (106) 98 05/15/18 16:00 73 05/15/18 13:14 167/52 05/15/18 12:48 72 Intake and Output 05/15/18 05/16/18 18:59 06:59 Output Total 600 ml Balance -600 ml Output Urine Total 600 ml # Bowel Movements 1 1 Current Medications Medications (Trade) Dose Ordered Sig/Gelacio Route PRN Reason Start Time Stop Time Status Last Admin Dose Admin Acetaminophen (Tylenol) 650 mg Q4H PRN ORAL For Pain 05/10/18 21:00 06/09/18 20:59 Amlodipine Besylate (Norvasc) 5 mg Q12HR GT 05/14/18 21:00 06/13/18 20:59 05/16/18 08:50 Ascorbic Acid (Vitamin C) 500 mg TWICE A DAY GT 05/11/18 09:00 06/10/18 08:59 05/16/18 08:51 Aspirin (ASA) 81 mg DAILY GT 05/11/18 09:00 06/10/18 08:59 05/16/18 08:51 Clonidine HCl (Catapres Tab) 0.1 mg Q6H PRN GT >HTN 160 05/10/18 21:00 06/09/18 20:59 Dextrose (Dextrose 50%) 25 ml Q30M PRN IV Hypoglycemia 05/10/18 21:30 06/09/18 21:29 Dextrose (Dextrose 50%) 50 ml Q30M PRN IV Hypoglycemia 05/10/18 21:30 06/09/18 21:29 Epoetin Homer (Procrit (for non ESRD use)) 10,000 units MON-MON-MON SUBQ 05/11/18 21:00 06/10/18 20:59 05/14/18 21:07 Gabapentin (Neurontin) 100 mg THREE TIMES A DAY GT 05/11/18 09:00 06/10/18 08:59 05/16/18 12:32 Hydralazine HCl (Apresoline) 50 mg EVERY 6 HOURS GT 05/15/18 18:00 06/10/18 00:00 05/16/18 12:28 Insulin Aspart (NovoLOG) Q6HR SUBQ 05/12/18 06:00 06/10/18 06:29 05/16/18 12:29 Isosorbide Dinitrate (Isordil) 10 mg Q6HR GT 05/15/18 18:00 06/14/18 17:59 05/16/18 12:28 Levetiracetam (Keppra) 750 mg BID GT 05/11/18 09:00 06/10/18 08:59 05/16/18 08:53 Metoprolol Tartrate (Lopressor) 50 mg EVERY 12 HOURS ORAL 05/10/18 22:00 06/09/18 21:59 05/16/18 08:50 Multivitamins (Multivitamins W/ Minerals 15ml Liquid) 15 ml DAILY GT 05/11/18 09:00 06/10/18 08:59 05/16/18 08:52 Nitroglycerin (Ntg) 1 patch DAILY TDERMAL 05/11/18 09:00 06/10/18 08:59 05/16/18 08:51 Pantoprazole (Protonix) 40 mg EVERY 12 HOURS IVP 05/10/18 21:00 06/09/18 20:59 05/16/18 08:52 Sevelamer Carbonate (Renvela) 800 mg THREE TIMES A DAY NG 05/12/18 09:00 06/11/18 08:59 05/16/18 12:28 Sodium Chloride 1,000 ml @ 75 mls/hr [id number] IV 05/10/18 18:30 06/09/18 18:29 05/16/18 08:53 Laboratory Tests 05/16/18 05:26: White Blood Count 11.1H, Red Blood Count 2.89L, Hemoglobin 8.6L, Hematocrit 27.0L, Mean Corpuscular Volume 93, Mean Corpuscular Hemoglobin 29.9, Mean Corpuscular Hemoglobin Concent 32.0, Red Cell Distribution Width 13.7, Platelet Count 179, Mean Platelet Volume 7.7, Neutrophils (%) (Auto) 78.0H, Lymphocytes ( %) (Auto) 10.8L, Monocytes (%) (Auto) 6.9, Eosinophils (%) (Auto) 3.6H, Basophils (%) (Auto) 0.8, Sodium Level 143, Potassium Level 3.7, Chloride Level 111H, Carbon Dioxide Level 22, Anion Gap 10, Blood Urea Nitrogen 113H, Creatinine 3.6H, Estimat Glomerular Filtration Rate , Glucose Level 258H, Uric Acid 6.3, Calcium Level 8.7, Phosphorus Level 3.6, Magnesium Level 3.4H, Total Bilirubin 0.3, Aspartate Amino Transf (AST/SGOT) 11L, Alanine Aminotransferase ( ALT/SGPT) 14, Alkaline Phosphatase 112, Pro-B-Type Natriuretic Peptide 7053H, Total Protein 6.7, Albumin 2.0L, Globulin 4.7, Albumin/Globulin Ratio 0.4L Height (Feet): 5 Height (Inches): 6.00 Weight (Pounds): 170 General Appearance: no apparent distress, lethargic Cardiovascular: other - rate 80s Respiratory/Chest: decreased breath sounds Abdomen: distended Objective no change Phil Ortiz MD May 16, 2018 12:44
[2018-05-16] MEDS ORDERED: Acetaminophen 650mg/20.3ml GT PRN (12:46)
--- NOTE | 2018-05-16 12:48 | Cardiac Electrophysiology PN ---
Assessment/Plan Assessment/Plan 1. Paroxysmal atrial fibrillation, currently in SR on metoprolol 50 mg b.i.d and aspirin. 2. Hypertension, on Toprol 50 mg bid, Norvasc 5 mg daily and hydralazine 25 q6hr 3. Right femoral pseudoaneurysm, status post thrombin injection. 4. History of pleural effusion, status post thoracentesis. 5. Acute renal failure. 125/3.7, now 113/3.[address] Ortiz 6. Dysphagia, status post PEG placement. 7. Dementia. 8. Troponin leak 1.86 and 1.35. Non verbal. ECG showed RBBB with no change. Due to renal failure. No further troponin 9. DNR DW RN and family at bedside Subjective Subjective Nonverbal with no events. G tube feeding on going. In SR 60s. DNR Daughter at bedside Objective Last 24 Hour Vital Signs Date Time Temp Pulse Resp B/P (MAP) Pulse Ox O2 Delivery O2 Flow Rate FiO2 05/16/18 12:28 166/64 05/16/18 12:28 166/64 05/16/18 08:51 182/65 05/16/18 08:50 83 182/65 05/16/18 08:50 83 182/65 05/16/18 08:00 79 05/16/18 08:00 98.5 79 18 182/65 (104) 98 05/16/18 07:24 80 19 Nasal Cannula 2.0 28 05/16/18 07:23 Nasal Cannula 2.0 28 05/16/18 07:23 96 Nasal Cannula 2.0 28 05/16/18 06:55 148/55 05/16/18 06:00 148/55 05/16/18 04:00 98.5 73 18 148/55 (86) 98 05/16/18 04:00 67 05/16/18 00:59 145/51 05/16/18 00:59 145/51 05/16/18 00:34 Nasal Cannula 2.0 28 05/16/18 00:33 98 Nasal Cannula 2.0 28 05/16/18 00:00 99.1 66 18 145/51 (82) 100 05/16/18 00:00 61 05/15/18 21:39 71 153/46 05/15/18 21:39 71 153/46 05/15/18 21:00 Nasal Cannula 2.0 05/15/18 20:00 98.6 71 18 153/46 (81) 94 05/15/18 17:50 158/80 05/15/18 17:49 158/80 05/15/18 16:00 98.2 73 18 158/80 (106) 98 05/15/18 16:00 73 05/15/18 13:14 167/52 05/15/18 12:48 72 Intake and Output 05/15/18 05/16/18 18:59 06:59 Output Total 600 ml Balance -600 ml Output Urine Total 600 ml # Bowel Movements 1 1 Laboratory Tests Test 05/16/18 05:26 White Blood Count 11.1 K/UL (4.8-10.8) H Red Blood Count 2.89 M/UL (4.20-5.40) L Hemoglobin 8.6 G/DL (12.0-16.0) L Hematocrit 27.0 % (37.0-47.0) L Mean Corpuscular Volume 93 FL (80-99) Mean Corpuscular Hemoglobin 29.9 PG (27.0-31.0) Mean Corpuscular Hemoglobin Concent 32.0 G/DL (32.0-36.0) Red Cell Distribution Width 13.7 % (11.6-14.8) Platelet Count 179 K/UL (150-450) Mean Platelet Volume 7.7 FL (6.5-10.1) Neutrophils (%) (Auto) 78.0 % (45.0-75.0) H Lymphocytes (%) (Auto) 10.8 % (20.0-45.0) L Monocytes (%) (Auto) 6.9 % (1.0-10.0) Eosinophils (%) (Auto) 3.6 % (0.0-3.0) H Basophils (%) (Auto) 0.8 % (0.0-2.0) Sodium Level 143 MMOL/L (136-145) Potassium Level 3.7 MMOL/L (3.5-5.1) Chloride Level 111 MMOL/L (98-107) H Carbon Dioxide Level 22 MMOL/L (21-32) Anion Gap 10 mmol/L (5-15) Blood Urea Nitrogen 113 mg/dL (7-18) H Creatinine 3.6 MG/DL (0.55-1.30) H Estimat Glomerular Filtration Rate mL/min (>60) Glucose Level 258 MG/DL (74-106) H Uric Acid 6.3 MG/DL (2.6-7.2) Calcium Level 8.7 MG/DL (8.5-10.1) Phosphorus Level 3.6 MG/DL (2.5-4.9) Magnesium Level 3.4 MG/DL (1.8-2.4) H Total Bilirubin 0.3 MG/DL (0.2-1.0) Aspartate Amino Transf (AST/SGOT) 11 U/L (15-37) L Alanine Aminotransferase (ALT/SGPT) 14 U/L (12-78) Alkaline Phosphatase 112 U/L (46-116) Pro-B-Type Natriuretic Peptide 7053 pg/mL (0-125) H Total Protein 6.7 G/DL (6.4-8.2) Albumin 2.0 G/DL (3.4-5.0) L Globulin 4.7 g/dL Albumin/Globulin Ratio 0.4 (1.0-2.7) L Objective HEAD AND NECK: No JVD. LUNGS: Coarse rhonchi. CARDIOVASCULAR: Regular S1 and S2 with no gallop or murmur. ABDOMEN: Soft with G-tube. EXTREMITIES: Right groin hematoma is stable. Sacral decubitus Everett Nair MD May 16, 2018 12:48
[2018-05-16 16:00] VITALS: BP 158/74
[2018-05-16 16:28] LABS: CREATININE 3.6 MG/DL (0.55-1.30)
--- NOTE | 2018-05-16 17:13 | General Progress Note ---
Assessment/Plan Problem List: (1) Anemia ICD Codes: D64.9 - Anemia, unspecified SNOMED: 229881507 (2) Pleural effusion ICD Codes: J90 - Pleural effusion, not elsewhere classified SNOMED: 30459783 (3) Renal failure ICD Codes: N19 - Unspecified kidney failure SNOMED: 22951990 (4) Diabetic nephropathy ICD Codes: E11.21 - Type 2 diabetes mellitus with diabetic nephropathy SNOMED: 74466582, 613150399 (5) Hypertension ICD Codes: I10 - Essential (primary) hypertension SNOMED: 02702201 (6) CKD (chronic kidney disease) ICD Codes: N18.9 - Chronic kidney disease, unspecified SNOMED: 545248956 (7) Decubitus ulcer of sacral region, unstageable ICD Codes: L89.150 - Pressure ulcer of sacral region, unstageable SNOMED: 578262164, 616489721 (8) Mass of right thigh ICD Codes: R22.41 - Localized swelling, mass and lump, right lower limb SNOMED: 854930025 (9) MARK (acute kidney injury) ICD Codes: N17.9 - Acute kidney failure, unspecified SNOMED: 12496940 Assessment/Plan dc today see dc summary for details Subjective Allergies: Coded Allergies: PENICILLINS (Unverified Allergy, Mild, 04/20/18) 04/20/18- Patient has been on pip-tazo for this admission since 04/15/18 as well as previous admission. Pt has Penicillin allergy on profile-unknown reactions. Mirza Gallo and Belgica Padillaan aware of allergy and are okay with continuing with pip-tazo. No reactions noted Objective Last 24 Hour Vital Signs Date Time Temp Pulse Resp B/P (MAP) Pulse Ox O2 Delivery O2 Flow Rate FiO2 05/16/18 12:28 166/64 05/16/18 12:28 166/64 05/16/18 12:00 98.3 69 18 166/64 (98) 96 05/16/18 12:00 65 05/16/18 09:00 Nasal Cannula 2.0 05/16/18 08:51 182/65 05/16/18 08:50 83 182/65 05/16/18 08:50 83 182/65 05/16/18 08:00 79 05/16/18 08:00 98.5 79 18 182/65 (104) 98 05/16/18 07:24 80 19 Nasal Cannula 2.0 28 05/16/18 07:23 Nasal Cannula 2.0 28 05/16/18 07:23 96 Nasal Cannula 2.0 28 05/16/18 06:55 148/55 05/16/18 06:00 148/55 05/16/18 04:00 98.5 73 18 148/55 (86) 98 05/16/18 04:00 67 05/16/18 00:59 145/51 05/16/18 00:59 145/51 05/16/18 00:34 Nasal Cannula 2.0 28 05/16/18 00:33 98 Nasal Cannula 2.0 28 05/16/18 00:00 99.1 66 18 145/51 (82) 100 05/16/18 00:00 61 05/15/18 21:39 71 153/46 05/15/18 21:39 71 153/46 05/15/18 21:00 Nasal Cannula 2.0 05/15/18 20:00 98.6 71 18 153/46 (81) 94 05/15/18 17:50 158/80 05/15/18 17:49 158/80 Intake and Output 05/15/18 05/16/18 18:59 06:59 Output Total 600 ml Balance -600 ml Output Urine Total 600 ml # Bowel Movements 1 1 Laboratory Tests 05/16/18 05:26: White Blood Count 11.1H, Red Blood Count 2.89L, Hemoglobin 8.6L, Hematocrit 27.0L, Mean Corpuscular Volume 93, Mean Corpuscular Hemoglobin 29.9, Mean Corpuscular Hemoglobin Concent 32.0, Red Cell Distribution Width 13.7, Platelet Count 179, Mean Platelet Volume 7.7, Neutrophils (%) (Auto) 78.0H, Lymphocytes ( %) (Auto) 10.8L, Monocytes (%) (Auto) 6.9, Eosinophils (%) (Auto) 3.6H, Basophils (%) (Auto) 0.8, Sodium Level 143, Potassium Level 3.7, Chloride Level 111H, Carbon Dioxide Level 22, Anion Gap 10, Blood Urea Nitrogen 113H, Creatinine 3.6H, Estimat Glomerular Filtration Rate , Glucose Level 258H, Uric Acid 6.3, Calcium Level 8.7, Phosphorus Level 3.6, Magnesium Level 3.4H, Total Bilirubin 0.3, Aspartate Amino Transf (AST/SGOT) 11L, Alanine Aminotransferase ( ALT/SGPT) 14, Alkaline Phosphatase 112, Pro-B-Type Natriuretic Peptide 7053H, Total Protein 6.7, Albumin 2.0L, Globulin 4.7, Albumin/Globulin Ratio 0.4L Height (Feet): 5 Height (Inches): 6.00 Weight (Pounds): 170 Krzysztof Schneider MD May 16, 2018 17:13
[2018-05-16] MEDS ORDERED: HydrALAZINE 25mg tab GT SCH (18:00)
[2018-05-16 20:00] VITALS: BP 153/73
[2018-05-16] MEDS ORDERED: Metoprolol Tartrate 50mg tab GT SCH (21:00)
--- NOTE | 2018-05-16 21:27 | General Progress Note ---
Assessment/Plan Assessment/Plan # Acute kidney injury potentially medication v dehydration related --> losartan has been discontinued --> as per renal recs, reviewed --> trend bmp -->125/3.7, now 113/3.6 today. VENTURA Ortiz # Hypertension, on Toprol 50 mg b.i.d. as well as Norvasc 5 mg daily --> bp better controlled as per cardiology --> meds adjusted # Right femoral pseudoaneurysm, status post thrombin injection. # History of pleural effusion, status post thoracentesis. # Paroxysmal atrial fibrillation. The patient is currently in sinus rhythm. --> Continue metoprolol 50 mg b.i.d. At this time, the patient is off anticoagulation except for aspirin. # Dysphagia, status post PEG placement. # Dementia. # DM / Proteinuria / HypoAlbuminemia # Encephalopathy due to metabolic factor or toxin # Hypoglycemia # Anemia # Decubitus ulcer of sacral region, unstageable # Troponin leak 1.86 and 1.35. Non verbal. --> ECG showed RBBB with no change. -->Due to renal failure. No further troponin Time of service does not reflect necessarily time of encounter. Subjective Constitutional: Denies: no symptoms, chills, diaphoresis, fever, malaise, weakness, other HEENT: Denies: no symptoms, eye pain, blurred vision, tearing, double vision, ear pain, ear discharge, nose pain, nose congestion, throat pain, throat swelling, mouth pain, mouth swelling, other Respiratory: Denies: no symptoms, cough, orthopnea, shortness of breath, SOB with excertion, SOB at rest, sputum, stridor, wheezing, other Gastrointestinal/Abdominal: Denies: no symptoms, abdomen distended, abdominal pain, black stools, tarry stools, blood in stool, constipated, diarrhea, difficulty swallowing, nausea, poor appetite, poor fluid intake, rectal bleeding , vomiting, other Genitourinary: Denies: no symptoms, burning, discharge, frequency, flank pain, hematuria, incontinence, pain, urgency, other Neurologic/Psychiatric: Denies: no symptoms, anxiety, depressed, emotional problems, headache, numbness, paresthesia, pre-existing deficit, seizure, tingling, tremors, weakness, other Endocrine: Denies: no symptoms, excessive sweating, flushing, intolerance to cold, intolerance to heat, increased hunger, increased thirst, increased urine, unexplained weight gain, unexplained weight loss, other Allergies: Coded Allergies: PENICILLINS (Unverified Allergy, Mild, 04/20/18) 04/20/18- Patient has been on pip-tazo for this admission since 04/15/18 as well as previous admission. Pt has Penicillin allergy on profile-unknown reactions. Mirza Gallo and Belgica Padillaan aware of allergy and are okay with continuing with pip-tazo. No reactions noted Subjective Pt resting in bed. No acute events. VS stable. 05/13: no events, in bed, lowest position, peg tube+, no complaints 05/15: no events, dnr, dni, nonverbal, no fevers 05/16 : Pt is seen in the room, gtube, resting in bed, no acute events Objective Last 24 Hour Vital Signs Date Time Temp Pulse Resp B/P (MAP) Pulse Ox O2 Delivery O2 Flow Rate FiO2 05/16/18 20:00 97.5 75 19 153/73 (99) 97 05/16/18 20:00 76 05/16/18 17:53 166/64 05/16/18 17:53 166/64 05/16/18 16:00 70 05/16/18 16:00 98.2 72 18 158/74 (102) 96 05/16/18 12:28 166/64 05/16/18 12:28 166/64 05/16/18 12:00 98.3 69 18 166/64 (98) 96 05/16/18 12:00 65 05/16/18 09:00 Nasal Cannula 2.0 05/16/18 08:51 182/65 05/16/18 08:50 83 182/65 05/16/18 08:50 83 182/65 05/16/18 08:00 79 05/16/18 08:00 98.5 79 18 182/65 (104) 98 05/16/18 07:24 80 19 Nasal Cannula 2.0 28 05/16/18 07:23 Nasal Cannula 2.0 28 05/16/18 07:23 96 Nasal Cannula 2.0 28 05/16/18 06:55 148/55 05/16/18 06:00 148/55 05/16/18 04:00 98.5 73 18 148/55 (86) 98 05/16/18 04:00 67 05/16/18 00:59 145/51 05/16/18 00:59 145/51 05/16/18 00:34 Nasal Cannula 2.0 28 05/16/18 00:33 98 Nasal Cannula 2.0 28 05/16/18 00:00 99.1 66 18 145/51 (82) 100 05/16/18 00:00 61 05/15/18 21:39 71 153/46 05/15/18 21:39 71 153/46 Intake and Output 05/15/18 05/16/18 19:00 07:00 Output Total 600 ml Balance -600 ml Output Urine Total 600 ml # Bowel Movements 1 1 Laboratory Tests 05/16/18 05:26: White Blood Count 11.1H, Red Blood Count 2.89L, Hemoglobin 8.6L, Hematocrit 27.0L, Mean Corpuscular Volume 93, Mean Corpuscular Hemoglobin 29.9, Mean Corpuscular Hemoglobin Concent 32.0, Red Cell Distribution Width 13.7, Platelet Count 179, Mean Platelet Volume 7.7, Neutrophils (%) (Auto) 78.0H, Lymphocytes ( %) (Auto) 10.8L, Monocytes (%) (Auto) 6.9, Eosinophils (%) (Auto) 3.6H, Basophils (%) (Auto) 0.8, Sodium Level 143, Potassium Level 3.7, Chloride Level 111H, Carbon Dioxide Level 22, Anion Gap 10, Blood Urea Nitrogen 113H, Creatinine 3.6H, Estimat Glomerular Filtration Rate , Glucose Level 258H, Uric Acid 6.3, Calcium Level 8.7, Phosphorus Level 3.6, Magnesium Level 3.4H, Total Bilirubin 0.3, Aspartate Amino Transf (AST/SGOT) 11L, Alanine Aminotransferase ( ALT/SGPT) 14, Alkaline Phosphatase 112, Pro-B-Type Natriuretic Peptide 7053H, Total Protein 6.7, Albumin 2.0L, Globulin 4.7, Albumin/Globulin Ratio 0.4L Height (Feet): 5 Height (Inches): 6.00 Weight (Pounds): 170 Objective PE: VITAL SIGNS: Have been reviewed. HEAD AND NECK: Shows no JVD LUNGS: Coarse rhonchi. CARDIOVASCULAR: Shows regular S1 and S2 with no gallop or murmur. ABDOMEN: Soft with G-tube. EXTREMITIES: Right groin hematoma is stable. Aleksandr Kern MD May 16, 2018 21:27
--- NOTE | 2018-05-17 09:46 | Discharge Summary ---
Discharge Summary Discharge Summary _ DATE OF ADMISSION: 05/10/2018 DATE OF DISCHARGE: 05/16/2018 DISCHARGED BY: Dr. Krzysztof Mesa CONSULTANTS: Dr. Everett Kern BRIEF HOSPITAL COURSE: Patient is an 82-year-old female, nonverbal, presented to ED for elevated kidney function levels. Patient was at longterm and had been on antibiotics. Kidney function was normally elevated, however, recent blood work showed significant elevation in kidney function. Patient was somnolent and nonverbal. History was significantly limited. She has medical history significant for hypertension, diabetes mellitus type 2, dysphagia on G-tube, encephalopathy, dementia, seizure disorder, CKD and hyperlipidemia. On evaluation at the ED, vital signs were stable. Blood work did not show any leukocytosis, hemoglobin was 9.5, hematocrit 29, platelet 193. Potassium was elevated to 5.2. Sodium 134. BUN 153, creatinine 3.9. BNP was elevated > 2000. She had a chest x-ray read showed cardiomegaly with findings suggestive of CHF/pulmonary edema. Urinalysis showed 3+ leukocyte esterase, 0-2 RBC, too many to count WBC, negative nitrite. She was started empirically on Rocephin. She was given Kayexalate via G-tube. She was then admitted for evaluation of renal failure. Kidney function was monitored. Patient has acute on chronic renal failure. She was given IV hydration. 24-hour urine creatinine clearance was 8, urine protein was 1.5 gms. Urine culture with growth of Ling. Patient has history of paroxysmal atrial fibrillation, hypertension and CHF. She was continued on metoprolol 50 mg twice daily. She was given Norvasc. Losartan was discontinued due to renal failure. She was given instead hydralazine 100 mg 3 times daily. Patient has right femoral pseudoaneurysm, status post recent thrombin injection at [facility]. She was off anticoagulation except for aspirin. She had elevated troponin levels 1.86 and 1.35. EKG showed right bundle branch block, sinus rhythm, no acute changes. Elevated troponin possibly due to troponin leak due to renal failure. She was given prn nebulizer treatment. She was placed on heparin for DVT prophylaxis. Patient was agitated and had waxing and waning of consciousness. Psychiatric evaluation was done. She was given Seroquel as needed. She was assessed to lack the capacity to make medical decisions. She came in with an unstageable sacral decubitus ulcer. She was given wound care. Goals of care was discussed with the family. Patient DNR/DNI. She was eventually discharged to [facility]. FINAL DIAGNOSES: Acute on chronic renal failure Dehydration Encephalopathy due to metabolic factor Hypoglycemia Anemia Unstageable decubitus ulcer of sacral region, present on admission PEG status Diabetes mellitus with diabetic nephropathy Hypertension Right femoral pseudoaneurysm, status post thrombin injection Dementia Troponin leak, due to renal failure Pleural effusion Localized swelling/mass/lump on the right lower limb DISPOSITION: Patient was discharged to a SNF. DISCHARGE MEDICATIONS: Refer to Discharge Medication List. I have been assigned to dictate discharge summary on this account, and I was not involved in the patient's management. Ines Riley NP May 17, 2018 09:46
== END 2018-05-16 22:00 | DRG 682 ==
LOC: EDBD 12:41 → EDUNIT# 12:41 → EMR 13:40 → 2E 14:40 → EDBEDREQ 17:06 → 2E 20:51
DX: N17.9 Acute kidney failure, unspecified (principal); G93.41 Metabolic encephalopathy; Z43.1 Encounter for attention to gastrostomy; Z88.0 Allergy status to penicillin; H54.8 Legal blindness, as defined in USA; I12.9 Hypertensive chronic kidney disease with stage 1 through stage 4 chronic kidney disease, or unspecified chronic kidney disease; E11.22 Type 2 diabetes mellitus with diabetic chronic kidney disease; N18.9 Chronic kidney disease, unspecified; E86.0 Dehydration; E11.649 Type 2 diabetes mellitus with hypoglycemia without coma; D64.9 Anemia, unspecified; L89.150 Pressure ulcer of sacral region, unstageable; I72.4 Aneurysm of artery of lower extremity; F03.90 Unspecified dementia, unspecified severity, without behavioral disturbance, psychotic disturbance, mood disturbance, and anxiety; R22.41 Localized swelling, mass and lump, right lower limb; R13.10 Dysphagia, unspecified; Z79.4 Long term (current) use of insulin; Z86.73 Personal history of transient ischemic attack (TIA), and cerebral infarction without residual deficits; I48.0 Paroxysmal atrial fibrillation; Z66 Do not resuscitate; I45.10 Unspecified right bundle-branch block
CPT/HCPCS: 36415; 71045; 74018; 80053; 80061; 81003; 81050; 82140; 82550; 82553; 82575; 82607; 82728; 82746; 82962; 82977; 83036; 83540; 83550; 83690; 83735; 83880; 84100; 84156; 84443; 84484; 84550; 85025; 86140; 87086; 93005; 93970; 94640; 94664; 94760; 96365; 96375; 99285; J1815; J7620

== ENCOUNTER 2018-05-27 15:03 | Inpatient (IN) | payer MEDICARE ==
[~2018-05-27] VITALS: Ht 177.8 cm; Wt 110.7 kg
--- NOTE | 2018-05-27 15:01 | Emergency Room Report ---
History of Present Illness General Source: EMS Present Illness HPI Patient is an 82-year-old female brought in from [facility] after diminished oxygen saturation and altered mental status. Patient prior history of atrial fibrillation. She was noted to be bradycardic by EMS. Patient was given atropine in the field with improvement of her heart rate. Patient was noted to be continually altered. She was started on supplemental oxygen via nonrebreather. History is markedly limited by patient's mental status. Allergies: Coded Allergies: PENICILLINS (Unverified Allergy, Mild, 04/20/18) 04/20/18- Patient has been on pip-tazo for this admission since 04/15/18 as well as previous admission. Pt has Penicillin allergy on profile-unknown reactions. Mirza Gallo and Belgica Padillaan aware of allergy and are okay with continuing with pip-tazo. No reactions noted Patient History Past Medical History: see triage record Reviewed Nursing Documentation: PMH: Agreed; PSxH: Agreed Review of Systems All Other Systems: limited - by poor historian Physical Exam Sp02 EP Interpretation: reviewed, normal General Appearance: well appearing, alert, GCS 15, moderate distress, Chronically Ill Head: atraumatic ENT: normal voice, dry mucus membranes Neck: normal inspection, supple, no bony tend, limited range of motion Respiratory: normal inspection, lungs clear, normal breath sounds, no respiratory distress, no retraction, no wheezing Cardiovascular #1: regular rate, rhythm, no edema Gastrointestinal: normal inspection, normal bowel sounds, non tender, soft, no guarding, no hernia, other - gtube present Genitourinary: no CVA tenderness Musculoskeletal: normal inspection, back normal, normal range of motion Neurologic: aphasia, motor weakness Psychiatric: normal inspection, judgement/insight normal, mood/affect normal Skin: no rash Medical Decision Making Diagnostic Impression: Primary Impression: Encephalopathy due to metabolic factor or toxin Additional Impressions: PEG (percutaneous endoscopic gastrostomy) status CKD (chronic kidney disease) Sepsis Urinary tract infection ER Course Patient presented for generalized weakness. Differential diagnosis included was not limited to anemia, urinary tract infection, electrolyte abnormality, hypothyroidism, myocardial infarction, myasthenia gravis, dehydration, among others. Because of complexity of patient's case laboratory testing and imaging studies were ordered. EKG interpreted by me showed EKG interpreted by me showed irregular bradycardic rhythm. Patient started on supplemental oxygen. The patient's urine appears to be grossly purulent.Patient be admitted for further evaluation and treatment of altered mental status.Patient was noted to have some evidence of acute kidney decompensation. Patient had a recent lab test performed which showed creatinine of 3.3. Repeat labs today showed markedly elevated BUN/creatinine. Patient was started on IV hydration. Dr. Schneider was contacted for inpatient management. Dr. Phil Ortiz was contacted for a renal consult Labs Test 05/27/18 15:20 05/27/18 15:45 05/27/18 16:00 White Blood Count 8.0 K/UL (4.8-10.8) Red Blood Count 3.24 M/UL (4.20-5.40) Hemoglobin 9.5 G/DL (12.0-16.0) Hematocrit 30.9 % (37.0-47.0) Mean Corpuscular Volume 95 FL (80-99) Mean Corpuscular Hemoglobin 29.3 PG (27.0-31.0) Mean Corpuscular Hemoglobin Concent 30.7 G/DL (32.0-36.0) Red Cell Distribution Width 15.6 % (11.6-14.8) Platelet Count 207 K/UL (150-450) Mean Platelet Volume 8.7 FL (6.5-10.1) Neutrophils (%) (Auto) 69.9 % (45.0-75.0) Lymphocytes (%) (Auto) 16.3 % (20.0-45.0) Monocytes (%) (Auto) 11.5 % (1.0-10.0) Eosinophils (%) (Auto) 1.7 % (0.0-3.0) Basophils (%) (Auto) 0.6 % (0.0-2.0) Sodium Level 139 MMOL/L (136-145) Potassium Level 5.7 MMOL/L (3.5-5.1) Chloride Level 107 MMOL/L (98-107) Carbon Dioxide Level 21 MMOL/L (21-32) Anion Gap 12 mmol/L (5-15) Blood Urea Nitrogen 185 mg/dL (7-18) Creatinine 6.6 MG/DL (0.55-1.30) Estimat Glomerular Filtration Rate mL/min (>60) Glucose Level 253 MG/DL (74-106) Lactic Acid Level 1.80 mmol/L (0.4-2.0) Calcium Level 8.6 MG/DL (8.5-10.1) Phosphorus Level 5.5 MG/DL (2.5-4.9) Magnesium Level 4.9 MG/DL (1.8-2.4) Total Bilirubin 0.2 MG/DL (0.2-1.0) Aspartate Amino Transf (AST/SGOT) 90 U/L (15-37) Alanine Aminotransferase (ALT/SGPT) 67 U/L (12-78) Alkaline Phosphatase 215 U/L (46-116) Total Creatine Kinase 280 U/L (26-308) Creatine Kinase MB 2.1 NG/ML (0.0-3.6) Creatine Kinase MB Relative Index 0.7 Troponin I 0.232 ng/mL (0.000-0.056) Total Protein 6.8 G/DL (6.4-8.2) Albumin 2.0 G/DL (3.4-5.0) Globulin 4.8 g/dL Albumin/Globulin Ratio 0.4 (1.0-2.7) Arterial Blood pH 7.333 (7.350-7.450) Arterial Blood Partial Pressure CO2 40.1 mmHg (35.0-45.0) Arterial Blood Partial Pressure O2 337.0 mmHg (75.0-100.0) Arterial Blood HCO3 20.8 mmol/L (22.0-26.0) Arterial Blood Oxygen Saturation 99.4 % (95-100) Arterial Blood Base Excess -4.7 (-2-2) Michael Test Positive Urine Color Pale yellow Urine Appearance Very cloudy Urine pH 6 (4.5-8.0) Urine Specific [place] 1.015 (1.005-1.035) Urine Protein 4+ (NEGATIVE) Urine Glucose (UA) Negative (NEGATIVE) Urine Ketones 1+ (NEGATIVE) Urine Blood 4+ (NEGATIVE) Urine Nitrite Negative (NEGATIVE) Urine Bilirubin Negative (NEGATIVE) Urine Urobilinogen Normal MG/DL (0.0-1.0) Urine Leukocyte Esterase 3+ (NEGATIVE) Urine RBC 10-15 /HPF (0 - 2) Urine WBC Tntc /HPF (0 - 2) Urine Squamous Epithelial Cells Occasional /LPF Urine Bacteria Many /HPF (NONE) Urine Yeast Few /HPF (NONE) Status: unchanged Disposition: ADMITTED INPATIENT Condition: Bob Diaz MD May 27, 2018 15:01
[~2018-05-27 15:03] MED LIST changes: +ARANESP40 MCG/0.4 IM; +DOXAZOSIN MESYLA2 MG GT; +FERROUS SULFATE GT; +GABAPENTIN100 MG GT; +LOSARTAN POTASS25 MG GT; +NORVASC5 MG GT
[2018-05-27 15:10] VITALS: BP 97/67
--- NOTE | 2018-05-27 15:10 | NUR ---
ED Nurse Note: Pt BIBA from SNF. Non verbal respond, bed ridden, lethargic, drowsy. Pt came with G-tube and F/C from SNF and EJ inserted by EMS on Rt side. Pressure ulcers noted on both heels and coccyx with black color. Urine in FC bag noted with sediment and cloudy.
[2018-05-27 15:42] LABS: BASOPHILS % (AUTO) 0.6 % (0.0-2.0); EOSINOPHILS % (AUTO) 1.7 % (0.0-3.0); HEMATOCRIT 30.9 % (37.0-47.0); HEMOGLOBIN 9.5 G/DL (12.0-16.0); LYMPHOCYTES % (AUTO) 16.3 % (20.0-45.0); MEAN CORPUSCULAR VOLUME 95 FL (80-99); MONOCYTES % (AUTO) 11.5 % (1.0-10.0); NEUTROPHILS % (AUTO) 69.9 % (45.0-75.0); PLATELET COUNT 207 K/UL (150-450); RED BLOOD COUNT 3.24 M/UL (4.20-5.40); RED CELL DISTRIBUTION WIDTH 15.6 % (11.6-14.8)
[2018-05-27 16:02] LABS: ANION GAP 12 mmol/L (5-15); BLOOD UREA NITROGEN 185 mg/dL (7-18); CALCIUM 8.6 MG/DL (8.5-10.1); CARBON DIOXIDE 21 MMOL/L (21-32); CHLORIDE 107 MMOL/L (98-107); CREATININE 6.6 MG/DL (0.55-1.30); POTASSIUM 5.7 MMOL/L (3.5-5.1); SODIUM 139 MMOL/L (136-145)
[2018-05-27 16:05] LABS: ALANINE AMINOTRANSFERASE 67 U/L (12-78); ALBUMIN/GLOBULIN RATIO 0.4 (1.0-2.7); ALKALINE PHOSPHATASE 215 U/L (46-116); ASPARTATE AMINO TRANSFERASE 90 U/L (15-37); BILIRUBIN,TOTAL 0.2 MG/DL (0.2-1.0); CKMB 2.1 NG/ML (0.0-3.6); CREATINE KINASE 280 U/L (26-308); PHOSPHORUS 5.5 MG/DL (2.5-4.9)
[2018-05-27 16:15] LABS: APPEARANCE,URINE VERY CLOUDY; BILIRUBIN, URINE NEGATIVE (NEGATIVE); COLOR,URINE PALE YELLOW; GLUCOSE, URINE (UA) NEGATIVE (NEGATIVE); KETONES,URINE 1+ (NEGATIVE); LEUKOCYTE ESTERASE ,URINE 3+ (NEGATIVE); NITRITE,URINE NEGATIVE (NEGATIVE); PH,URINE 6 (4.5-8.0); PROTEIN,URINE 4+ (NEGATIVE); UROBILINOGEN,URINE NORMAL MG/DL (0.0-1.0)
[2018-05-27] MEDS ORDERED: Sodium Polystyrene Sulfonate 15gm Powder ORAL ONE (16:15)
--- NOTE | 2018-05-27 16:36 | NUR ---
ED Nurse Note: Changed to 3L/min via NC by RT based on ABG results. Pt saturating 99% with 3L/min.
[2018-05-27 16:56] VITALS: BP 107/57
--- NOTE | 2018-05-27 17:36 | NUR ---
ED Nurse Note: Granddaughter at bedside. She reported that pt is currently at baseline mentally. Pt stable in bed.
[2018-05-27] MEDS ORDERED: Calcium Chloride 100mg/ml Vial IVP ONE (18:30)
[2018-05-27] MEDS ORDERED: Calcium Chloride 10% 10ml carpuject IVP ONE (18:45)
--- NOTE | 2018-05-27 18:45 | NUR ---
ED Nurse Note: Pt HR went down to 38 and pt had yellow vomit x1. MD made aware and got a verbal order to suction. Suction done. No s/s of aspiration. HR went up to 60 after vomit and suction. Granddaughter at bedside.
[2018-05-27 19:00] VITALS: BP 118/38
--- NOTE | 2018-05-27 19:20 | NUR ---
ED Nurse Note: Received patient from DIPAK Herman. Patient sleeping NAD. VSS. Family at bedside.
--- NOTE | 2018-05-27 19:22 | NUR ---
HAND-OFF: Report given to Siri Soriano RN. Pt's condition has been reported including vomit episode and given medications. Pt stable in bed.
--- NOTE | 2018-05-27 19:43 | NUR ---
ED Nurse Note: Left message for MD Wyatt for admitting orders while patient is waiting for unit bed; awaiting call back.
--- NOTE | 2018-05-27 20:25 | NUR ---
ED Nurse Note: Received new orders from MD Wyatt. Noted and carried out.
[2018-05-27 21:00] VITALS: BP 124/66
--- NOTE | 2018-05-27 21:55 | NUR ---
ED Nurse Note: Received new orders from MD Diana. Noted and carried out.
[2018-05-27] MEDS: D5 1/2NS 1,000 ML IV SCH (22:20)
[2018-05-27] MEDS ORDERED: HydrALAZINE 25mg tab GT PRN (23:00)
--- NOTE | 2018-05-27 23:00 | NUR ---
NURSE NOTES: Bedside report received from DIPAK Johnston. Pt is resting in bed no s/s of respiratory distress. Pt is nonverbal, flat affect. quality improvement coordinator (rn) showing SB. Sating 96% on RA. CGT Nepro @ 30 ml/hr; patent, flushes well. [place] is patent, draining. Urine is cloudy, yellow. MD aware. Skin is clean and dry. Bilateral trace lower extremity edema noted. SCDs ordered, will hold until [place] [facility] order from [facility]. LH 22g running D51/2NS @ 75 ml/hr; asymptomatic. REJ; asymptomatic. aware of labs; given 2L NS bolus, lasix, kayexalate, calcium chloride, levoquin in ED.
[2018-05-28] VITALS (7 sets, daily range): BP systolic 122–145; BP diastolic 45–99
[2018-05-28] MEDS: HydrALAZINE 10mg Tab GT SCH ×3 (00:08→12:58)
[2018-05-28] MEDS: NovoLOG Insulin Flexpen SUBQ SCH ×4 (05:28→20:59)
[2018-05-28 05:37] LABS: BASOPHILS % (AUTO) 1.8 % (0.0-2.0); EOSINOPHILS % (AUTO) 3.2 % (0.0-3.0); HEMATOCRIT 26.2 % (37.0-47.0); HEMOGLOBIN 8.4 G/DL (12.0-16.0); LYMPHOCYTES % (AUTO) 15.6 % (20.0-45.0); MEAN CORPUSCULAR VOLUME 95 FL (80-99); MONOCYTES % (AUTO) 9.6 % (1.0-10.0); NEUTROPHILS % (AUTO) 69.7 % (45.0-75.0); PLATELET COUNT 195 K/UL (150-450); RED BLOOD COUNT 2.76 M/UL (4.20-5.40); RED CELL DISTRIBUTION WIDTH 15.3 % (11.6-14.8); WHITE BLOOD COUNT 8.3 K/UL (4.8-10.8)
[2018-05-28 05:46] LABS: % IRON SATURATION 33 % (15-50); IRON 47 ug/dL (50-175); TOTAL IRON BINDING CAPACITY 141 ug/dL (250-450)
[2018-05-28 05:50] LABS: CREATINE KINASE 517 U/L (26-308); GAMMA GLUTAMYL TRANSPEPTIDASE 114 U/L (5-85); PHOSPHORUS 5.8 MG/DL (2.5-4.9)
[2018-05-28 05:58] LABS: ALANINE AMINOTRANSFERASE 57 U/L (12-78); ALBUMIN 1.9 G/DL (3.4-5.0); ALBUMIN/GLOBULIN RATIO 0.4 (1.0-2.7); ALKALINE PHOSPHATASE 197 U/L (46-116); ANION GAP 11 mmol/L (5-15); ASPARTATE AMINO TRANSFERASE 52 U/L (15-37); BILIRUBIN,TOTAL 0.3 MG/DL (0.2-1.0); BLOOD UREA NITROGEN 168 mg/dL (7-18); CALCIUM 8.5 MG/DL (8.5-10.1); CARBON DIOXIDE 21 MMOL/L (21-32); CHLORIDE 108 MMOL/L (98-107); CHOLESTEROL 117 MG/DL (< 200); CREATININE 6.4 MG/DL (0.55-1.30); FERRITIN 297 NG/ML (8-388); HDL CHOLESTEROL 42 MG/DL (40-60); POTASSIUM 4.6 MMOL/L (3.5-5.1); SODIUM 140 MMOL/L (136-145); TRIGLYCERIDES 59 MG/DL (30-150)
[2018-05-28] MEDS ORDERED: NovoLOG Insulin Flexpen SUBQ SCH (06:00)
--- NOTE | 2018-05-28 06:38 | NUR ---
NURSE NOTES: Paged Dr. Schneider regarding previous hospital meds pertinent to the patient that were not ordered by Dr. Ortiz. Patient received an ABG on NRB, and is now sating at 96% on RA. Would like to see if repeat ABG is necessary. Does not appear to be in any respiratory distress, however wheezing has been noted. Albuterol was used in previous hospital admission. Aspirin 81 mg, Gabapentin were also not ordered but used on previous hospital admission. LABS P 5.8, Mg 4.4. Pt also has trace bilateral lower extremity edema, SCDs ordered. Need to know prior to placing that Renata Duplex is negative. Pt is nonverbal, flat affect, unable to verbalize pain. Will continue to monitor and follow plan of care.
--- NOTE | 2018-05-28 07:01 | NUR ---
NURSE NOTES: Paged Dr. Schneider regarding insulin administration at 0630. Novolog pen that was given was Novolog 70/30, and labeled as Novolog. Pt was given 6 units. Pt does not appear to be in any distress, VSS. Will continue to monitor and follow plan of care. Awaiting a call back.
--- NOTE | 2018-05-28 07:09 | NUR ---
HAND-OFF: Report given to DIPAK King.
--- NOTE | 2018-05-28 07:10 | NUR ---
NURSE NOTES: Received patient from DIPAK Victor. Patient nonverbal at this time. Eyes are open but patient does not track. Patient appears lethargic. Patient on room air with stable saturation. Patient VS stable at this time. Patient has a gastrostomy tube that is patent, asymptomatic, and running Nepro at 30cc/hr at this time. Patient has a shaver for urine retention. Urine is cloudy at this time. MD aware. Patient has a sacral stage 2 pressure ulcer and right and left heel DTI. Patient has a right EJ, L chest [employer] shunt showing on the chest x-ray, left hand 22G PIV that is patent, asymptomatic, and running D5 0.45% NS at 75cc/hr. Patient bed in low position with bed alarm on and call light in reach at this time.
[2018-05-28] MEDS: levETIRAcetam 500mg/5ml Liquid GT SCH ×2 (08:43→21:00)
--- NOTE | 2018-05-28 09:25 | NUR ---
NURSE NOTES: Spoke with Dr Schneider regarding albuterol that patient was receiving in longterm, he ordered DuoNeb Q4HR PRN. Spoke with him regarding ABG since patient is now on RA. He said that patient does not need this at this time. Spoke with him regarding gabapentin that patient was receiving at longterm. Patient is not to receive this here. Spoke with him regarding aspirin which patient received in longterm. He reported that patient can continue this here at this time. Notified him regarding Mg of 4.4 this morning.
[2018-05-28] MEDS ORDERED: Acetaminophen 650mg/20.3ml GT PRN (09:45)
--- NOTE | 2018-05-28 09:56 | NUR ---
NURSE NOTES: Spoke to Dr Ortiz regarding Insulin which was given at 0630 this morning. The Insulin which was given was 70/30, mid-acting insulin 6 units. Patient has an order for NPH 20 units this morning. Blood sugar is 259 this morning. Doctor reported that it is safe to give the NPH at this time. Pharmacy has been notified at this time. Will continue to monitor patient.
[2018-05-28] MEDS ORDERED: Albuterol/Ipratropium 3ml neb HHN PRN (10:00)
[2018-05-28] MEDS: Insulin NPH SUBQ SCH ×2 (10:27→20:59)
[2018-05-28] MEDS: D5 1/2NS 1,000 ML IV SCH (11:44)
--- NOTE | 2018-05-28 11:52 | NUR ---
RD ASSESSMENT & RECOMMENDATIONS SEE CARE ACTIVITY FOR COMPLETE ASSESSMENT DAILY ESTIMATED NEEDS: Needs based on DM, renal, wound 54kg abw 25-30 kcals/kg 4440-0240 total kcals 0.8-1.0 (increase w/ renal improvement) g protein/kg 43-54 g total protein Fluid per MD mL/kg . total fluid mLs NUTRITION DIAGNOSIS: 1) Swallowing difficulty R/T dysphagia as evidenced by pt GT dep w/ PEG feedings. 2) Increased Kcal and protein needs r/t wound healing as evidenced by sacral wound, h/o of unstageable 3) Altered nutrition related lab values R/T CKD, clinical condition, DM as evidenced by elev BUN (168), elev Creat (6.4), elev BNP (5851), elev phos (5.8), elev mag (4.4), elev BGs (258 253), elev POC glu (259 273), A1C=7.2 CURRENT TF:Nepro @ 30ml/hr x 24 hrs ENTERAL NUTRITION RECOMMENDATIONS: Nepro @ 30ml/hr x 24 hrs to provide 720ml, 1296kcal, 60g prot, 523ml free water - Maintain current TF order for now : meets 96% est kcal needs, will monitor for ability to increase TF as renal fxn improves. - Flush per MD/ HOB over 30 degrees ADDITIONAL RECOMMENDATIONS: 1) Per SNF: HT 60 inches, WT 179lbs (05/24/18) 2) WOUND CARE: add DONALD BID , f/up w/ wound eval 3) Monitor lytes and renal fxn 4) Monitor phos closely, need for phos binder 5) CALIBRATED BEDSCALE WT, weekly wt monitoring. . .
--- NOTE | 2018-05-28 11:53 | Diagnostic Imaging Report ---
Indication: Dyspnea Comparison: 05/10/2018 A single view chest radiograph was obtained. Findings: There is evidence of pulmonary vascular redistribution and interstitial edema. The heart is enlarged. There may be a right pleural effusion also given obscuring of the right hemidiaphragm. IMPRESSION: Congestive heart failure
[2018-05-28] MEDS ORDERED: Cefepime HCl 1 GM in D5W 55 ML IVPB SCH (12:00)
--- NOTE | 2018-05-28 13:09 | NUR ---
CASE MANAGEMENT: REVIEW 82/F HARSHA FROM CC: AMS SI: ALOC T 97.5 HR 55 RR 15 BP 97/67 SAT 100% NON-REBREATHER 100 H/H 9.5/30.9 K 5.7 BUN 185 CR 6.6 GLUCOSE 253 PHOS 5.5 MAG 4.9 IS: NS IVF BOLUS X1 KAYEXALATE PO X1 LASIX IV X1 CALCIUM CHLORIDE IV X1 CEFEPIME IV X1 INTERQUAL CRITERIA MET: PATIENT ADMITTED TO STEP DOWN UNIT 05/27/2018 DCP: PATIENT IS FROM [facility]
--- NOTE | 2018-05-28 14:54 | Consultation ---
Consult Note Consult Note known to me from her previous admission Patient is an 82-year-old female brought in from [facility] after diminished oxygen saturation and altered mental status. Patient prior history of atrial fibrillation. She was noted to be bradycardic by EMS. Patient was given atropine in the field with improvement of her heart rate. Patient was noted to be continually altered. She was started on supplemental oxygen via nonrebreather. History is markedly limited by patient's mental status. Allergies: Coded Allergies: PENICILLINS (Unverified Allergy, Mild, 04/20/18) 04/20/18- Patient has been on pip-tazo for this admission since 04/15/18 as well as previous admission. Pt has Penicillin allergy on profile-unknown reactions. Mirza Gallo and Belgica French aware of allergy and are okay with continuing with pip-tazo. No reactions noted examined data reviewed Assessment/Plan (1) Acute on chronic renal failure (2) Anemia (3) Diabetic nephropathy (4) Cardiac ischemia elevated troponin Plan: recent admission: DNR DNI and CrCl 8 - No dialysis was entertained due to underlying debility and code status at this time: Nitrate- Hydralazine- Hydrate- Monitor BS- Anemia conn and watch avoid Nephrotoxics Monitor renal parameters Phil Ortiz MD May 28, 2018 14:54
--- NOTE | 2018-05-28 15:21 | Cardiac Electrophysiology PN ---
Subjective Subjective 1. Paroxysmal atrial fibrillation, currently in SR on metoprolol 50 mg b.i.d and aspirin. 2. Hypertension, on Norvasc 5 mg daily 3. Right femoral pseudoaneurysm, status post thrombin injection. 4. History of pleural effusion, status post thoracentesis. 5. Acute renal failure. VENTURA Ortiz 6. Dysphagia, status post PEG placement. 7. Dementia. 8. Troponin leak Non verbal. ECG showed RBBB with no change. Due to renal failure. No further troponin 9. DNR Objective Last 24 Hour Vital Signs Date Time Temp Pulse Resp B/P (MAP) Pulse Ox O2 Delivery O2 Flow Rate FiO2 05/28/18 12:58 145/58 05/28/18 12:00 97.2 59 20 145/58 (87) 99 05/28/18 12:00 58 05/28/18 08:40 59 151/63 05/28/18 08:00 58 05/28/18 08:00 97.2 57 20 122/57 (78) 97 05/28/18 05:27 113/73 05/28/18 04:00 96.8 58 20 133/53 (79) 97 05/28/18 04:00 57 05/28/18 04:00 Room Air 05/28/18 00:08 127/49 05/28/18 00:00 97.0 60 22 135/45 (75) 96 05/28/18 00:00 59 05/28/18 00:00 Room Air 05/27/18 22:39 Room Air 05/27/18 22:33 Room Air 05/27/18 21:00 97.5 55 15 124/66 100 Room Air 05/27/18 19:00 97.5 56 17 118/38 100 Room Air 05/27/18 16:56 97.5 72 17 107/57 99 Nasal Cannula 3.0 Intake and Output 05/27/18 05/28/18 19:00 07:00 Intake Total 0 ml 1875 ml Output Total 200 ml 150 ml Balance -200 ml 1725 ml Intake Oral 0 ml Free Water 60 ml IV Total 1575 ml Tube Feeding 240 ml Output Urine Total 200 ml 150 ml # Voids 2 # Bowel Movements 5 Laboratory Tests Test 05/27/18 15:20 05/27/18 15:45 05/27/18 16:00 05/27/18 23:15 White Blood Count 8.0 K/UL (4.8-10.8) Red Blood Count 3.24 M/UL (4.20-5.40) L Hemoglobin 9.5 G/DL (12.0-16.0) L Hematocrit 30.9 % (37.0-47.0) L Mean Corpuscular Volume 95 FL (80-99) Mean Corpuscular Hemoglobin 29.3 PG (27.0-31.0) Mean Corpuscular Hemoglobin Concent 30.7 G/DL (32.0-36.0) L Red Cell Distribution Width 15.6 % (11.6-14.8) H Platelet Count 207 K/UL (150-450) Mean Platelet Volume 8.7 FL (6.5-10.1) Neutrophils (%) (Auto) 69.9 % (45.0-75.0) Lymphocytes (%) (Auto) 16.3 % (20.0-45.0) L Monocytes (%) (Auto) 11.5 % (1.0-10.0) H Eosinophils (%) (Auto) 1.7 % (0.0-3.0) Basophils (%) (Auto) 0.6 % (0.0-2.0) Sodium Level 139 MMOL/L (136-145) Potassium Level 5.7 MMOL/L (3.5-5.1) H Chloride Level 107 MMOL/L (98-107) Carbon Dioxide Level 21 MMOL/L (21-32) Anion Gap 12 mmol/L (5-15) Blood Urea Nitrogen 185 mg/dL (7-18) H Creatinine 6.6 MG/DL (0.55-1.30) H Estimat Glomerular Filtration Rate mL/min (>60) Glucose Level 253 MG/DL (74-106) H Lactic Acid Level 1.80 mmol/L (0.4-2.0) Calcium Level 8.6 MG/DL (8.5-10.1) Phosphorus Level 5.5 MG/DL (2.5-4.9) H Magnesium Level 4.9 MG/DL (1.8-2.4) *H Total Bilirubin 0.2 MG/DL (0.2-1.0) Aspartate Amino Transf (AST/SGOT) 90 U/L (15-37) H Alanine Aminotransferase (ALT/SGPT) 67 U/L (12-78) Alkaline Phosphatase 215 U/L (46-116) H Total Creatine Kinase 280 U/L (26-308) Creatine Kinase MB 2.1 NG/ML (0.0-3.6) Creatine Kinase MB Relative Index 0.7 Troponin I 0.232 ng/mL (0.000-0.056) Total Protein 6.8 G/DL (6.4-8.2) Albumin 2.0 G/DL (3.4-5.0) L Globulin 4.8 g/dL Albumin/Globulin Ratio 0.4 (1.0-2.7) L Arterial Blood pH 7.333 (7.350-7.450) Arterial Blood Partial Pressure CO2 40.1 mmHg (35.0-45.0) Arterial Blood Partial Pressure O2 337.0 mmHg (75.0-100.0) H Arterial Blood HCO3 20.8 mmol/L (22.0-26.0) L Arterial Blood Oxygen Saturation 99.4 % (95-100) Arterial Blood Base Excess -4.7 (-2-2) L Michael Test Positive Urine Color Pale yellow Urine Appearance Very cloudy Urine pH 6 (4.5-8.0) Urine Specific [place] 1.015 (1.005-1.035) Urine Protein 4+ (NEGATIVE) H Urine Glucose (UA) Negative (NEGATIVE) Urine Ketones 1+ (NEGATIVE) H Urine Blood 4+ (NEGATIVE) H Urine Nitrite Negative (NEGATIVE) Urine Bilirubin Negative (NEGATIVE) Urine Urobilinogen Normal MG/DL (0.0-1.0) Urine Leukocyte Esterase 3+ (NEGATIVE) H Urine RBC 10-15 /HPF (0 - 2) H Urine WBC Tntc /HPF (0 - 2) H Urine Squamous Epithelial Cells Occasional /LPF Urine Bacteria Many /HPF (NONE) H Urine Yeast Few /HPF (NONE) H C-Reactive Protein, Quantitative 4.4 mg/dL (0.00-0.90) H Test 05/28/18 03:35 White Blood Count 8.3 K/UL (4.8-10.8) Red Blood Count 2.76 M/UL (4.20-5.40) L Hemoglobin 8.4 G/DL (12.0-16.0) L Hematocrit 26.2 % (37.0-47.0) L Mean Corpuscular Volume 95 FL (80-99) Mean Corpuscular Hemoglobin 30.4 PG (27.0-31.0) Mean Corpuscular Hemoglobin Concent 31.9 G/DL (32.0-36.0) L Red Cell Distribution Width 15.3 % (11.6-14.8) H Platelet Count 195 K/UL (150-450) Mean Platelet Volume 7.3 FL (6.5-10.1) Neutrophils (%) (Auto) 69.7 % (45.0-75.0) Lymphocytes (%) (Auto) 15.6 % (20.0-45.0) L Monocytes (%) (Auto) 9.6 % (1.0-10.0) Eosinophils (%) (Auto) 3.2 % (0.0-3.0) H Basophils (%) (Auto) 1.8 % (0.0-2.0) Sodium Level 140 MMOL/L (136-145) Potassium Level 4.6 MMOL/L (3.5-5.1) Chloride Level 108 MMOL/L (98-107) H Carbon Dioxide Level 21 MMOL/L (21-32) Anion Gap 11 mmol/L (5-15) Blood Urea Nitrogen 168 mg/dL (7-18) H Creatinine 6.4 MG/DL (0.55-1.30) H Estimat Glomerular Filtration Rate mL/min (>60) Glucose Level 258 MG/DL (74-106) H Hemoglobin A1c 7.2 % (4.3-6.0) H Uric Acid 7.3 MG/DL (2.6-7.2) H Calcium Level 8.5 MG/DL (8.5-10.1) Phosphorus Level 5.8 MG/DL (2.5-4.9) H Magnesium Level 4.4 MG/DL (1.8-2.4) H Iron Level 47 ug/dL (50-175) L Total Iron Binding Capacity 141 ug/dL (250-450) L Percent Iron Saturation 33 % (15-50) Unsaturated Iron Binding 94 ug/dL (112-346) L Ferritin 297 NG/ML (8-388) Total Bilirubin 0.3 MG/DL (0.2-1.0) Gamma Glutamyl Transpeptidase 114 U/L (5-85) H Aspartate Amino Transf (AST/SGOT) 52 U/L (15-37) H Alanine Aminotransferase (ALT/SGPT) 57 U/L (12-78) Alkaline Phosphatase 197 U/L (46-116) H Total Creatine Kinase 517 U/L (26-308) H Troponin I 0.219 ng/mL (0.000-0.056) Pro-B-Type Natriuretic Peptide 5851 pg/mL (0-125) H Total Protein 6.3 G/DL (6.4-8.2) L Albumin 1.9 G/DL (3.4-5.0) L Globulin 4.4 g/dL Albumin/Globulin Ratio 0.4 (1.0-2.7) L Triglycerides Level 59 MG/DL (30-150) Cholesterol Level 117 MG/DL (< 200) LDL Cholesterol 72 mg/dL (<100) HDL Cholesterol 42 MG/DL (40-60) Cholesterol/HDL Ratio 2.8 (3.3-4.4) L Vitamin B12 Level 1764 PG/ML (193-986) H Folate 68.0 NG/ML (8.6-58.9) H Thyroid Stimulating Hormone (TSH) 1.787 uiU/mL (0.358-3.740) Microbiology Date/Time Source Procedure Growth Status 05/27/18 16:00 Urine,Clean Catch Urine Culture - Preliminary NO GROWTH Resulted Everett Nair MD May 28, 2018 15:21
--- NOTE | 2018-05-28 15:30 | NUR ---
NURSE NOTES:WOUND CARE NOTES:Pt presents with resolving full thickness pressure injury to sacrum (L)2cm x (W)5cm with small opening at sacrococcygeal (L)0.7cm x (W)0.6cm with surrounding pink epithelial base.Borders are intact and flat without induration periwound. Small amt sanguineous exudate .No odor noted. Small brittany-anal wound noted (L)0.6cm x (W)0.5cm R heel with dark discoloration fluctuant centrally,periwound is dry and intact(L)4.5cm x (W)6.8cm.Base of wound with biofilm ,erythema with induration.Small amt sanguineous exudate noted. L heel Boggy ,Boggy with dark skin tone.Border and periwound without erythema. Tx. Plan:Apply Moisture Barrier PAste to Sacrum.Cover with Optifoam drsg .Change every 3 days and prn. Apply Moisture Barrier Paste to brittany-anal wound with each perineal care. Apply Cavilon Skin Barrier wipe to both heels daily.Cover with Optifoam drsg .Change every 7 days and prn. Off-load Heels with Pillow. Reposition at least 2 hours or as tolerated. Air fluidized mattress.
--- NOTE | 2018-05-28 16:30 | Consultation ---
DATE OF CONSULTATION: 05/28/2018 INFECTIOUS DISEASES CONSULTATION CONSULTING PHYSICIAN: Wilder French M.D. PRIMARY ATTENDING PHYSICIAN: Krzysztof Schneider M.D. REASON FOR CONSULTATION: Pyuria, urinary tract infection. HISTORY OF PRESENT ILLNESS: This is an 82-year-old female who is a half-way resident admitted yesterday with altered mental status, had decrease in O2 saturation, had bradycardia in nursing facility. The patient is not a source of history. She had no fever. PAST MEDICAL HISTORY: Significant for dementia. 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 MEDICATIONS: The patient is getting aspirin, albuterol ipratropium, Tylenol, Prevacid, Norvasc, insulin NPH, insulin Aspart, hydralazine. ALLERGIES: Allergic to penicillin but in the previous admission tolerated cefepime and meropenem. SOCIAL HISTORY: [facility] resident with poor mental and functional status. No history of alcohol, drug abuse, or smoking. Code Status is a DNR. No other history obtainable by the patient. PHYSICAL EXAMINATION: VITAL SIGNS: Temperature 96.8, pulse 59, blood pressure 151/63. GENERAL APPEARANCE: No acute distress. HEAD AND NECK: Mucous membranes seems to be moist. HEART: Normal rate. LUNGS: Clear. ABDOMEN: Soft, nontender. G-tube feeding. EXTREMITIES: No edema. NEUROLOGIC: Nonverbal. LABORATORY AND DIAGNOSTIC DATA: Sodium 140, potassium 4.6, chloride 108, bicarb 21, BUN 168, creatinine 6.4, glucose 258. Lactic acid was 1.8 within normal limits. Albumin is 1.9. WBC 8.3, hemoglobin 8.4, hematocrit 26.2, platelets 195. UA showed WBC too numerous to count, many bacteria, leukocyte esterase 2+, nitrite negative. Urine culture so far is negative. Chest x-ray showed congestion and cardiomegaly. Official chest x-ray report is pending. IMPRESSION: 1. Pyuria, may have UTI. 2. Decrease in O2 saturation, congestion in chest x-ray, cannot rule out any early pneumonia. 3. Chronic kidney disease. 4. Diabetes mellitus. 5. Hypertension. 6. Advanced dementia. 7. Bradycardia. 8. Anemia. 9. Penicillin allergy. RECOMMENDATION: We will start the patient on cefepime. We will follow up the culture. We will follow up Nephrology evaluation. At the end of my exam, I thank Dr. Schneider for involving me in the care of this patient. Wilder French M.D. DR: Malcolm JOB#: [id number] CC:
[2018-05-28] MEDS ORDERED: D5 1/2NS 1000ml IV ONE (17:05)
[2018-05-28] MEDS ORDERED: NS 275ml ONE (17:06)
--- NOTE | 2018-05-28 18:30 | NUR ---
NURSE NOTES: Patient ralf duplex result is negative.
[2018-05-28] MEDS: HydrALAZINE 25mg tab GT SCH ×2 (18:31→23:19)
--- NOTE | 2018-05-28 19:45 | NUR ---
HAND-OFF: Report given to DIPAK Victor. Patient VS stable at this time with no sign of acute distress.
--- NOTE | 2018-05-28 19:46 | NUR ---
NURSE NOTES: Bedside report received from , RN. Pt is resting in bed no s/s of respiratory distress on RA. Pt is nonverbal, flat affect. nurse monitoring showing SB. CGT Nepro @ 30 ml/hr; patent, flushes well. Degroot is patent, draining. Urine is cloudy, yellow. MD aware. Skin is clean and dry. Bilateral trace lower extremity edema, wound dressings intact, P200 mattress noted. LH 22g running D51/2NS @ 75 ml/hr; asymptomatic. REJ; asymptomatic. MD aware of labs; per RN OK. Bed is locked in lowest position, side rails x3, sz precautions continued, bed alarm on. Will continue to monitor and follow plan of care.
--- NOTE | 2018-05-28 21:30 | Consultation ---
DATE OF CONSULTATION: 05/28/2018 CARDIOLOGY CONSULTATION CONSULTING PHYSICIAN: Everett Nair M.D. REFERRING PHYSICIAN: Krzysztof Schneider M.D. REASON FOR CONSULTATION: Management of hypertension, atrial fibrillation. HISTORY OF PRESENT ILLNESS: The patient is an 82-year-old lady with history of hypertension, paroxysmal atrial fibrillation, and renal failure, who was brought in from [facility] for diminished oxygen saturation and altered mental status. The patient was noted to be bradycardic by paramedics and was given atropine in the field with improvement in the heart rate. The patient was placed on supplemental oxygen. The patient on her previous admission just 2 weeks ago had acute renal failure, however, the patient was made DNR. At the time of my evaluation, the patient is and is nonverbal. REVIEW OF SYSTEMS: Cannot be obtained. PAST MEDICAL HISTORY: As mentioned above. FAMILY HISTORY: Noncontributory. PHYSICAL EXAMINATION: VITAL SIGNS: Show blood pressure of 144/58, pulse 59, respirations 18, and temperature 97.2. HEAD AND NECK: Showed no JVD. LUNGS: Coarse rhonchi. CARDIOVASCULAR: Irregular S1 and S2 with no gallop. ABDOMEN: Status post PEG. EXTREMITIES: She has 1+ pitting edema. LABORATORY AND DIAGNOSTIC DATA: Telemetry strip showed sinus rhythm in the 60s. Labs show white count of 8.2, hemoglobin 8.4, hematocrit 26.2, and platelet count is 195,000. Sodium is 140, potassium 4.6, BUN 168, creatinine 6.4, and glucose of 258. Troponin is 0.219 and 0.232. ASSESSMENT AND PLAN: 1. Troponin elevation. These levels are nonspecific, likely due to the patient's renal failure. 2. Status post bradycardia, requiring atropine injection. The patient is off sinus or AV miguel angel blocking agents. Currently in sinus rhythm. 3. Hypertension, on Norvasc 5 mg per G-tube daily and p.r.n. hydralazine. 4. End-stage renal disease, currently DNR. Dr. Ortiz is following. Not getting dialysis at this point. 5. Dysphagia, status post PEG placement. 6. History of pleural effusion, status post thoracentesis. 7. Right femoral pseudoaneurysm, status post thrombin injection. Thank you very much, Dr. Schneider, for allowing me to participate in the care of this patient. Please do not hesitate to contact me if you have any questions regarding my evaluation. Everett Nair M.D. DR: BENNIE JOB#: [id number] CC:
[2018-05-29] MEDS: D5 1/2NS 1,000 ML IV SCH ×2 (00:42→11:46)
--- NOTE | 2018-05-29 02:45 | History and Physical Report ---
DATE OF ADMISSION: 05/27/2018 HISTORY OF PRESENT ILLNESS: The patient is admitted for altered mental status. The patient is nonverbal. The patient has chronic renal insufficiency. The patient was brought in because of hypoxic at the [facility] where they noticed to have bradycardia. The patient was also started on oxygen and was admitted for altered mental status, acute renal failure on top of chronic renal failure. The patient is nonverbal, cannot get any history from the patient. PAST MEDICAL HISTORY: Advanced dementia, leg edema, chronic renal insufficiency, history of recurrent UTIs, history of GERD, seizure disorder, NIDDM, hypertension, malnutrition, history of decubitus. PAST SURGICAL HISTORY: , status post I and D of the wound. ALLERGIES: Penicillin. MEDICATIONS: Norvasc, Prevacid, Keppra, insulin, hydralazine, breathing treatment. FAMILY HISTORY: Unable to obtain. SOCIAL HISTORY: Unable to obtain. REVIEW OF SYSTEMS: Unable to obtain. PHYSICAL EXAMINATION: VITAL SIGNS: Temperature 97.2, pulse rate is 57, blood pressure 132/57. HEENT: PERRLA. NECK: Supple. CHEST: Bibasilar rhonchi. CARDIOVASCULAR: Regular rhythm. Bradycardic. GASTROINTESTINAL: Positive bowel sounds. G-tube site is intact. EXTREMITIES: 2+ edema. NEUROLOGIC: which is her baseline. LABORATORY DATA: WBC of 8, hemoglobin 9.5, and platelets of 207. Sodium 140, potassium 4.6, BUN of 168, creatinine of 6.4, and glucose of 268. ASSESSMENT/PLAN: Altered mental status, acute renal failure, hepatic encephalopathy. I have asked basically Dr. Ortiz as well as Dr. Nair and Dr. Wilder French to see the patient for the bradycardia as well as for the treatment of the rule out sepsis versus UTI and Dr. Ortiz will be in-charge of the renal failure and dialysis decision will be made by Dr. Ortiz. Krzysztof Schneider M.D. DR: ISMAEL JOB#: [id number] CC:
[2018-05-29 04:00] VITALS: BP 135/55
[2018-05-29 05:58] LABS: BASOPHILS % (AUTO) 0.9 % (0.0-2.0); EOSINOPHILS % (AUTO) 5.8 % (0.0-3.0); HEMATOCRIT 27.6 % (37.0-47.0); HEMOGLOBIN 8.8 G/DL (12.0-16.0); LYMPHOCYTES % (AUTO) 12.5 % (20.0-45.0); MEAN CORPUSCULAR VOLUME 94 FL (80-99); MONOCYTES % (AUTO) 8.5 % (1.0-10.0); NEUTROPHILS % (AUTO) 72.3 % (45.0-75.0); PLATELET COUNT 208 K/UL (150-450); RED BLOOD COUNT 2.95 M/UL (4.20-5.40); RED CELL DISTRIBUTION WIDTH 15.4 % (11.6-14.8); WHITE BLOOD COUNT 7.7 K/UL (4.8-10.8)
[2018-05-29] MEDS: HydrALAZINE 25mg tab GT SCH ×4 (06:15→23:19)
[2018-05-29] MEDS: NovoLOG Insulin Flexpen SUBQ SCH ×4 (06:16→23:21)
[2018-05-29 06:38] LABS: ALANINE AMINOTRANSFERASE 44 U/L (12-78); ALBUMIN 1.8 G/DL (3.4-5.0); ALBUMIN/GLOBULIN RATIO 0.4 (1.0-2.7); ALKALINE PHOSPHATASE 186 U/L (46-116); ANION GAP 13 mmol/L (5-15); ASPARTATE AMINO TRANSFERASE 34 U/L (15-37); BILIRUBIN,TOTAL 0.2 MG/DL (0.2-1.0); BLOOD UREA NITROGEN 176 mg/dL (7-18); CALCIUM 8.2 MG/DL (8.5-10.1); CARBON DIOXIDE 21 MMOL/L (21-32); CHLORIDE 108 MMOL/L (98-107); CREATININE 6.5 MG/DL (0.55-1.30); PHOSPHORUS 6.3 MG/DL (2.5-4.9); POTASSIUM 3.7 MMOL/L (3.5-5.1); SODIUM 142 MMOL/L (136-145)
--- NOTE | 2018-05-29 07:07 | NUR ---
HAND-OFF: Report given to DIPAK King. No s/s of distress, VSS.
--- NOTE | 2018-05-29 07:08 | NUR ---
NURSE NOTES: Received patient from DIPAK Victor. Patient VS stable with no sign of acute distress at this time. Patient nonverbal and non-responsive at this time. Patient opens eyes but does not follow command or track with eyes. Patient has flat affect. Patient on RA with saturation of 96% at this time. Patient has G tube that is patent, asymptomatic, and running nepro at 30mL/hr. Patient has a shaver for urine retention at this time. Urine cloudy at this time. Will follow up with doctor to see if shaver should be changed. Patient has NPH ordered for today. Patient blood sugar was stable/low over night. Patient has a sacral resolving full thickness pressure ulcer, small perianal wound, and bilateral heel DTI at this time. Physician consult ordered for today. Patient on P200 mattress. Patient has a right 18G EJ that is patent and asymptomatic at this time. Patient has a left hand 22G PIV that is patent and asymptomatic at this time. Patient running D5 0.45% NS at 75mL/hr at this time. Patient bed in low position with bed alarm on and call light in reach at this time.
[2018-05-29 08:00] VITALS: BP 127/64
--- NOTE | 2018-05-29 08:18 | NUR ---
NURSE NOTES: troponin and BNP values noted. labs trending down at this time.
[2018-05-29] MEDS: Insulin NPH SUBQ SCH (09:00)
[2018-05-29] MEDS: levETIRAcetam 500mg/5ml Liquid GT SCH ×2 (09:23→20:40)
[2018-05-29] MEDS: Aspirin Baby 81mg GT SCH (09:27)
--- NOTE | 2018-05-29 09:53 | Cardiac Electrophysiology PN ---
Assessment/Plan Assessment/Plan 1. Paroxysmal atrial fibrillation, in SR on metoprolol 25 mg bid and aspirin. 2. Hypertension, on Norvasc 5 mg daily, Lopressor and Hydralazine 12.5 q 6hr 3. Right femoral pseudoaneurysm, status post thrombin injection. 4. History of pleural effusion, status post thoracentesis. 5. Acute renal failure. FU Dr. Ortiz. Awaiting family decision re dialysis 6. Dysphagia, status post PEG placement. 7. Dementia. 8. Troponin leak Non verbal. ECG showed RBBB with no change. Due to renal failure. 9. DNI Subjective Subjective No change. Awaiting family decision re HD Objective Last 24 Hour Vital Signs Date Time Temp Pulse Resp B/P (MAP) Pulse Ox O2 Delivery O2 Flow Rate FiO2 05/29/18 09:27 60 127/64 05/29/18 08:00 97.0 61 20 127/64 (85) 97 05/29/18 07:55 58 05/29/18 06:15 135/55 05/29/18 04:00 Room Air 05/29/18 04:00 59 05/29/18 04:00 97.6 65 18 135/55 (81) 100 05/29/18 00:00 Room Air 05/28/18 23:48 57 05/28/18 23:19 135/99 05/28/18 23:19 96.6 60 20 135/99 (111) 100 05/28/18 20:00 Room Air 05/28/18 20:00 59 05/28/18 20:00 96.8 57 20 129/71 (90) 97 05/28/18 18:31 122/48 05/28/18 16:00 57 05/28/18 16:00 Room Air 05/28/18 16:00 97.2 56 20 122/48 (72) 96 05/28/18 12:58 145/58 05/28/18 12:00 97.2 59 20 145/58 (87) 99 05/28/18 12:00 58 05/28/18 12:00 Room Air Intake and Output 05/28/18 05/29/18 19:00 07:00 Intake Total 1410 ml 1225 ml Output Total 250 ml Balance 1410 ml 975 ml Free Water 150 ml 90 ml IV Total 900 ml 775 ml Tube Feeding 360 ml 360 ml Output Urine Total 250 ml # Bowel Movements 1 2 Laboratory Tests Test 05/29/18 03:45 White Blood Count 7.7 K/UL (4.8-10.8) Red Blood Count 2.95 M/UL (4.20-5.40) L Hemoglobin 8.8 G/DL (12.0-16.0) L Hematocrit 27.6 % (37.0-47.0) L Mean Corpuscular Volume 94 FL (80-99) Mean Corpuscular Hemoglobin 29.7 PG (27.0-31.0) Mean Corpuscular Hemoglobin Concent 31.7 G/DL (32.0-36.0) L Red Cell Distribution Width 15.4 % (11.6-14.8) H Platelet Count 208 K/UL (150-450) Mean Platelet Volume 7.9 FL (6.5-10.1) Neutrophils (%) (Auto) 72.3 % (45.0-75.0) Lymphocytes (%) (Auto) 12.5 % (20.0-45.0) L Monocytes (%) (Auto) 8.5 % (1.0-10.0) Eosinophils (%) (Auto) 5.8 % (0.0-3.0) H Basophils (%) (Auto) 0.9 % (0.0-2.0) Sodium Level 142 MMOL/L (136-145) Potassium Level 3.7 MMOL/L (3.5-5.1) Chloride Level 108 MMOL/L (98-107) H Carbon Dioxide Level 21 MMOL/L (21-32) Anion Gap 13 mmol/L (5-15) Blood Urea Nitrogen 176 mg/dL (7-18) H Creatinine 6.5 MG/DL (0.55-1.30) H Estimat Glomerular Filtration Rate mL/min (>60) Glucose Level 107 MG/DL (74-106) #H Hemoglobin A1c 6.2 % (4.3-6.0) H Uric Acid 7.5 MG/DL (2.6-7.2) H Calcium Level 8.2 MG/DL (8.5-10.1) L Phosphorus Level 6.3 MG/DL (2.5-4.9) H Magnesium Level 4.5 MG/DL (1.8-2.4) H Total Bilirubin 0.2 MG/DL (0.2-1.0) Aspartate Amino Transf (AST/SGOT) 34 U/L (15-37) Alanine Aminotransferase (ALT/SGPT) 44 U/L (12-78) Alkaline Phosphatase 186 U/L (46-116) H Troponin I 0.193 ng/mL (0.000-0.056) Pro-B-Type Natriuretic Peptide 5663 pg/mL (0-125) H Total Protein 6.1 G/DL (6.4-8.2) L Albumin 1.8 G/DL (3.4-5.0) L Globulin 4.3 g/dL Albumin/Globulin Ratio 0.4 (1.0-2.7) L Microbiology Date/Time Source Procedure Growth Status 05/27/18 15:20 Blood Blood Culture - Preliminary NO GROWTH AFTER 24 HOURS Resulted 05/27/18 15:20 Blood Blood Culture - Preliminary NO GROWTH AFTER 24 HOURS Resulted 05/27/18 16:00 Urine,Clean Catch Urine Culture - Preliminary YEAST Resulted Objective HEAD AND NECK: No JVD. LUNGS: Coarse rhonchi. CARDIOVASCULAR: Irregular S1 and S2 with no gallop. ABDOMEN: Status post PEG. EXTREMITIES: 1+ pitting edema. Everett Nair MD May 29, 2018 09:52
[2018-05-29] MEDS ORDERED: Cefepime HCl 500 MG in D5W 55 ML IVPB SCH (11:00)
--- NOTE | 2018-05-29 11:35 | Nephrology Progress Note ---
Assessment/Plan Problem List: (1) MARK (acute kidney injury) (2) CKD (chronic kidney disease) (3) Encephalopathy due to metabolic factor or toxin (4) Anemia (5) Diabetic nephropathy Assessment (1) Acute on chronic renal failure (2) Anemia (3) Diabetic nephropathy (4) Cardiac ischemia elevated troponin Plan recent admission: DNR DNI and CrCl 8 - No dialysis was entertained due to underlying debility and code status at this time: Nitrate- Hydralazine- Hydrate- Monitor BS- Anemia conn and watch avoid Nephrotoxics Monitor renal parameters Subjective ROS Limited/Unobtainable: Yes Objective Objective Last 24 Hour Vital Signs Date Time Temp Pulse Resp B/P (MAP) Pulse Ox O2 Delivery O2 Flow Rate FiO2 05/29/18 09:27 60 127/64 05/29/18 08:00 97.0 61 20 127/64 (85) 97 05/29/18 07:55 58 05/29/18 06:15 135/55 05/29/18 04:00 Room Air 05/29/18 04:00 59 05/29/18 04:00 97.6 65 18 135/55 (81) 100 05/29/18 00:00 Room Air 05/28/18 23:48 57 05/28/18 23:19 135/99 05/28/18 23:19 96.6 60 20 135/99 (111) 100 05/28/18 20:00 Room Air 05/28/18 20:00 59 05/28/18 20:00 96.8 57 20 129/71 (90) 97 05/28/18 18:31 122/48 05/28/18 16:00 57 05/28/18 16:00 Room Air 05/28/18 16:00 97.2 56 20 122/48 (72) 96 05/28/18 12:58 145/58 05/28/18 12:00 97.2 59 20 145/58 (87) 99 05/28/18 12:00 58 05/28/18 12:00 Room Air Intake and Output 05/28/18 05/29/18 19:00 07:00 Intake Total 1410 ml 1225 ml Output Total 250 ml Balance 1410 ml 975 ml Free Water 150 ml 90 ml IV Total 900 ml 775 ml Tube Feeding 360 ml 360 ml Output Urine Total 250 ml # Bowel Movements 1 2 Laboratory Tests 05/29/18 03:45: White Blood Count 7.7, Red Blood Count 2.95L, Hemoglobin 8.8L, Hematocrit 27.6L , Mean Corpuscular Volume 94, Mean Corpuscular Hemoglobin 29.7, Mean Corpuscular Hemoglobin Concent 31.7L, Red Cell Distribution Width 15.4H, Platelet Count 208, Mean Platelet Volume 7.9, Neutrophils (%) (Auto) 72.3, Lymphocytes (%) (Auto) 12.5L, Monocytes (%) (Auto) 8.5, Eosinophils (%) (Auto) 5.8H, Basophils (%) (Auto) 0.9, Sodium Level 142, Potassium Level 3.7, Chloride Level 108H, Carbon Dioxide Level 21, Anion Gap 13, Blood Urea Nitrogen 176H, Creatinine 6.5H, Estimat Glomerular Filtration Rate , Glucose Level 107#H, Hemoglobin A1c 6.2H, Uric Acid 7.5H, Calcium Level 8.2L, Phosphorus Level 6.3H, Magnesium Level 4.5H, Total Bilirubin 0.2, Aspartate Amino Transf (AST/SGOT) 34 , Alanine Aminotransferase (ALT/SGPT) 44, Alkaline Phosphatase 186H, Troponin I 0.193H, Pro-B-Type Natriuretic Peptide 5663H, Total Protein 6.1L, Albumin 1.8L, Globulin 4.3, Albumin/Globulin Ratio 0.4L Height (Feet): 5 Height (Inches): 10.00 Weight (Pounds): 172 General Appearance: no apparent distress Cardiovascular: bradycardia Respiratory/Chest: decreased breath sounds Abdomen: distended Phil Ortiz MD May 29, 2018 11:35
[2018-05-29] MEDS: Nitroglycerin Patch 0.4mg TDERMAL SCH (11:50)
[2018-05-29 11:52] VITALS: BP 121/44
--- NOTE | 2018-05-29 12:05 | Infectious Diseases Prog Note ---
Assessment/Plan Assessment/Plan A: 1. Pyuria, may have UTI. 2. Decrease in O2 saturation, congestion in chest x-ray, 3. Chronic kidney disease. 4. Diabetes mellitus. 5. Hypertension. 6. Advanced dementia. 7. Bradycardia. 8. Anemia. 9. Penicillin allergy. P; Change Cefepime to Fluconazole Subjective ROS Limited/Unobtainable: Yes Allergies: Coded Allergies: PENICILLINS (Unverified Allergy, Mild, 04/20/18) 04/20/18- Patient has been on pip-tazo for this admission since 04/15/18 as well as previous admission. Pt has Penicillin allergy on profile-unknown reactions. Mirza Gallo and Belgica Padillaan aware of allergy and are okay with continuing with pip-tazo. No reactions noted Objective Vital Signs Last 24 Hour Vital Signs Date Time Temp Pulse Resp B/P (MAP) Pulse Ox O2 Delivery O2 Flow Rate FiO2 05/29/18 11:52 97.2 57 16 121/44 (69) 98 05/29/18 11:50 121/44 05/29/18 11:43 121/44 05/29/18 09:27 60 127/64 05/29/18 08:00 Room Air 05/29/18 08:00 97.0 61 20 127/64 (85) 97 05/29/18 07:55 58 05/29/18 06:15 135/55 05/29/18 04:00 Room Air 05/29/18 04:00 59 05/29/18 04:00 97.6 65 18 135/55 (81) 100 05/29/18 00:00 Room Air 05/28/18 23:48 57 05/28/18 23:19 135/99 05/28/18 23:19 96.6 60 20 135/99 (111) 100 05/28/18 20:00 Room Air 05/28/18 20:00 59 05/28/18 20:00 96.8 57 20 129/71 (90) 97 05/28/18 18:31 122/48 05/28/18 16:00 57 05/28/18 16:00 Room Air 05/28/18 16:00 97.2 56 20 122/48 (72) 96 05/28/18 12:58 145/58 Height (Feet): 5 Height (Inches): 10.00 Weight (Pounds): 172 General Appearance: no acute distress HEENT: mucous membranes moist Respiratory/Chest: lungs clear Cardiovascular: bradycardia Abdomen: soft, non tender, other - GT feeding Extremities: other - edema of hands Neurologic/Psychiatric: other - Opens eyes Microbiology Date/Time Source Procedure Growth Status 05/27/18 15:20 Blood Blood Culture - Preliminary NO GROWTH AFTER 24 HOURS Resulted 05/27/18 15:20 Blood Blood Culture - Preliminary NO GROWTH AFTER 24 HOURS Resulted 05/27/18 16:00 Urine,Clean Catch Urine Culture - Preliminary YEAST Resulted Laboratory Tests Test 05/29/18 03:45 White Blood Count 7.7 K/UL (4.8-10.8) Red Blood Count 2.95 M/UL (4.20-5.40) L Hemoglobin 8.8 G/DL (12.0-16.0) L Hematocrit 27.6 % (37.0-47.0) L Mean Corpuscular Volume 94 FL (80-99) Mean Corpuscular Hemoglobin 29.7 PG (27.0-31.0) Mean Corpuscular Hemoglobin Concent 31.7 G/DL (32.0-36.0) L Red Cell Distribution Width 15.4 % (11.6-14.8) H Platelet Count 208 K/UL (150-450) Mean Platelet Volume 7.9 FL (6.5-10.1) Neutrophils (%) (Auto) 72.3 % (45.0-75.0) Lymphocytes (%) (Auto) 12.5 % (20.0-45.0) L Monocytes (%) (Auto) 8.5 % (1.0-10.0) Eosinophils (%) (Auto) 5.8 % (0.0-3.0) H Basophils (%) (Auto) 0.9 % (0.0-2.0) Sodium Level 142 MMOL/L (136-145) Potassium Level 3.7 MMOL/L (3.5-5.1) Chloride Level 108 MMOL/L (98-107) H Carbon Dioxide Level 21 MMOL/L (21-32) Anion Gap 13 mmol/L (5-15) Blood Urea Nitrogen 176 mg/dL (7-18) H Creatinine 6.5 MG/DL (0.55-1.30) H Estimat Glomerular Filtration Rate mL/min (>60) Glucose Level 107 MG/DL (74-106) #H Hemoglobin A1c 6.2 % (4.3-6.0) H Uric Acid 7.5 MG/DL (2.6-7.2) H Calcium Level 8.2 MG/DL (8.5-10.1) L Phosphorus Level 6.3 MG/DL (2.5-4.9) H Magnesium Level 4.5 MG/DL (1.8-2.4) H Total Bilirubin 0.2 MG/DL (0.2-1.0) Aspartate Amino Transf (AST/SGOT) 34 U/L (15-37) Alanine Aminotransferase (ALT/SGPT) 44 U/L (12-78) Alkaline Phosphatase 186 U/L (46-116) H Troponin I 0.193 ng/mL (0.000-0.056) C-Reactive Protein, Quantitative 4.0 mg/dL (0.00-0.90) H Pro-B-Type Natriuretic Peptide 5663 pg/mL (0-125) H Total Protein 6.1 G/DL (6.4-8.2) L Albumin 1.8 G/DL (3.4-5.0) L Globulin 4.3 g/dL Albumin/Globulin Ratio 0.4 (1.0-2.7) L Current Medications Medications (Trade) Dose Ordered Sig/Gelacio Route PRN Reason Start Time Stop Time Status Last Admin Dose Admin Acetaminophen (Tylenol) 650 mg Q6H PRN GT Mild Pain (Pain Scale 1-3) 05/28/18 09:45 06/27/18 09:44 Albuterol/ Ipratropium (Albuterol/ Ipratropium) 3 ml Q4H PRN HHN SOB and wheezing 05/28/18 10:00 06/02/18 09:59 Amlodipine Besylate (Norvasc) 5 mg DAILY GT 05/28/18 09:00 06/27/18 08:59 05/29/18 09:27 Aspirin (ASA) 81 mg DAILY GT 05/29/18 09:00 06/28/18 08:59 05/29/18 09:27 Cefepime HCl 500 mg/Dextrose 55 ml @ 110 mls/hr Q24H IVPB 05/29/18 11:00 06/05/18 10:59 05/29/18 11:42 Dextrose (Dextrose 50%) 25 ml Q30M PRN IV Hypoglycemia 05/27/18 20:30 06/26/18 20:29 Dextrose (Dextrose 50%) 50 ml Q30M PRN IV Hypoglycemia 05/27/18 20:30 06/26/18 20:29 Dextrose/Sodium Chloride 1,000 ml @ 50 mls/hr Q20H IV 05/29/18 12:00 06/28/18 11:59 05/29/18 11:46 Hydralazine HCl (Apresoline) 12.5 mg Q6HR GT 05/28/18 18:00 06/27/18 00:00 05/29/18 11:43 Hydralazine HCl (Apresoline) 25 mg Q4HR PRN GT bp over 160syst 05/27/18 23:00 06/26/18 22:59 Insulin Aspart (NovoLOG) BEFORE MEALS AND HS SUBQ 05/28/18 06:30 06/27/18 06:29 05/29/18 11:44 Isosorbide Dinitrate (Isordil) 10 mg Q8HR GT 05/29/18 14:00 06/28/18 13:59 Lansoprazole (Prevacid) 30 mg Q12HR GT 05/28/18 09:00 06/27/18 08:59 05/29/18 09:23 Levetiracetam (Keppra) 750 mg Q12HR GT 05/28/18 09:00 06/27/18 08:59 05/29/18 09:23 Metoprolol Tartrate (Lopressor) 25 mg Q12HR ORAL 05/29/18 21:00 06/28/18 20:59 Nitroglycerin (Ntg) 1 patch Q24H TDERMAL 05/29/18 12:00 06/28/18 11:59 05/29/18 11:50 Sevelamer Carbonate (Renvela) 1,600 mg THREE TIMES A DAY NG 05/29/18 13:00 06/28/18 12:59 Wilder French MD May 29, 2018 12:05
[2018-05-29] MEDS: Fluconazole 100mg tab GT SCH (12:52)
[2018-05-29] MEDS: Renvela 800mg Pkt NG SCH ×2 (12:52→17:49)
--- NOTE | 2018-05-29 13:46 | NUR ---
CASE MANAGEMENT: REVIEW SI: ALOC T 97.2 HR 57 RR 16 BP 121/44 SAT 98% ROOM AIR H/H 8.8/27.6 BUN 176 CR 6.5 IS: LOPRESSOR GT Q12HR ISOSORBIDE GT Q8HR SEVELAMER GT TID NITRO PATCH Q24HR ASA GT QD HYDRALAZINE GT Q6HR STEP DOWN UNIT STATUS DCP: PATIENT IS FROM [facility]
[2018-05-29 16:00] VITALS: BP 124/55
--- NOTE | 2018-05-29 16:00 | NUR ---
NURSE NOTES: Patient shaver catheter changed at this time. optical goods worker discussed patient's care with patient's granddaughter at this time. Dr Ortiz also discussed the patient's plan of care with the patient's family member.
--- NOTE | 2018-05-29 16:42 | NUR ---
Social Service Note LAISHA met with leopoldo Raven Gonzalez [phone] at patient's bedside. SW discussed plan of care and addressed code status. POLST completed DNR, Comfort focused care with [facility]. SW addressed frequent hospitalization and potential hemodialysis. yuniorjulia states before she makes the decision she would need to speak with her family. LAISHA contacted Dr. Kilpatrick who was able to discuss patient's prognosis and dialysis treatment. SW discussed if family declines dialysis patient can be referred to hospice. Anuja was open to this plan of care once she speaks with her family. LAISHA will contact [facility] for hospice options [phone]. SW provided emotional support. Will monitor and follow up.
--- NOTE | 2018-05-29 19:04 | NUR ---
HAND-OFF: Report given to DIPAK Victor. Patient VS stable with no sign of acute distress.
--- NOTE | 2018-05-29 19:05 | NUR ---
NURSE NOTES: Bedside report received from DIPAK Kign. Pt is resting in bed no s/s of respiratory distress on RA. Pt is nonverbal, flat affect, responds to movement, shaking. cabinet abrasive sandblaster showing SB. CGT Nepro @ 30 ml/hr; patent, flushes well. Degroot is patent, draining, changed on AM shift 05/29. Urine is cloudy, yellow. MD aware. Skin is clean and dry. Bilateral trace upper/lower extremity edema, wound dressings intact, P200 mattress, SCDS noted. REJ running D51/2NS @ 50 ml/hr; asymptomatic. MD aware of labs; per RN OK. Bed is locked in lowest position, side rails x3, sz precautions continued, bed alarm on. Will continue to monitor and follow plan of care.
[2018-05-29 20:00] VITALS: BP 132/50
[2018-05-29] MEDS: Metoprolol 25mg tab ORAL SCH (20:39)
--- NOTE | 2018-05-29 21:44 | Consultation ---
History of Present Illness General Date patient seen: May 29, 2018 Chief Complaint: Altered Level of Consciousness Present Illness Allergies: Coded Allergies: PENICILLINS (Unverified Allergy, Mild, 04/20/18) 04/20/18- Patient has been on pip-tazo for this admission since 04/15/18 as well as previous admission. Pt has Penicillin allergy on profile-unknown reactions. Mirza Gallo and [place] French aware of allergy and are okay with continuing with pip-tazo. No reactions noted Medication History Scheduled Amino Acids/Protein Hydrolys (Pro-Stat Liquid), 30 ML GT DAILY, (Reported) Amlodipine Besylate (Norvasc), 5 MG GT DAILY, (Reported) Ascorbic Acid* (Vitamin C*), 500 MG GT TWICE A DAY, (Reported) Aspirin* (Aspir 81*), 81 MG GT DAILY, (Reported) Darbepoetin Homer in Polysorbat (Aranesp), 40 MCG IM Q MONDAY, (Reported) Doxazosin Mesylate (Doxazosin Mesylate), 2 MG GT TWICE A DAY, (Reported) Gabapentin* (Gabapentin*), 100 MG GT THREE TIMES A DAY, (Reported) Hydralazine Hcl* (Hydralazine Hcl*), 75 MG GT EVERY 6 HOURS, (Reported) Insulin Human NPH (Novolin N), 20 UNITS SUBQ Q12HR, (Reported) Lansoprazole* (Prevacid*), 30 MG GT Q12HR, (Reported) Levetiracetam* (Levetiracetam*), 750 MG GT BID, (Reported) Losartan Potassium* (Losartan Potassium*), 25 MG GT TWICE A DAY, (Reported) Metoprolol Tartrate* (Metoprolol Tartrate*), 50 MG ORAL EVERY 12 HOURS, ( Reported) Multivits W-Min/Ferrous Gluc (Centrum Multivit-Mineral Liq), 5 ML GT DAILY, ( Reported) Nifedipine* (Nifedipine Er*), 60 MG ORAL Q8HR, (Reported) Nitroglycerin (Nitroglycerin Patch), 0.4 MG TD DAILY, (Reported) Nut.tx.impaired Renal Fxn,Soy (Nepro Carb Steady), 45 ML GT DAILY, (Reported) Zinc Gluconate (Zinc Gluconate), 220 MG GT DAILY, (Reported) [Fe Sulfate 75MG/ML], 7.5 ML GT TID, (Reported) [Santyl ointment], 250 UNITS TOPIC DAILY, (Reported) Scheduled PRN Acetaminophen* (Acetaminophen 325MG Tablet*), 650 MG GT Q4H PRN for For Pain, ( Reported) Clonidine Hcl* (Catapres*), 0.1 MG GT EVERY 6 HOURS PRN for >HTN 160, (Reported) Glucagon HCl (Glucagon HCl), 1 MG IJ every 5 minutes x3 PRN for hypoglycemia, ( Reported) Insulin Lispro (Humalog), 0 SUBQ Q6HR PRN for Sliding Scale, (Reported) Ipratropium/Albuterol Sulfate (DuoNeb 0.5-3(2.5)mg/3ml), 3 ML HHN Q4HR PRN for Shortness of Breath, (Reported) Patient History Healthcare decision maker SELF Resuscitation status Advanced Directive on File No Physical Exam Last 24 Hour Vital Signs Date Time Temp Pulse Resp B/P (MAP) Pulse Ox O2 Delivery O2 Flow Rate FiO2 05/29/18 21:05 126/60 05/29/18 20:39 64 132/58 05/29/18 17:49 142/62 05/29/18 16:00 97.3 63 20 124/55 (78) 97 05/29/18 16:00 Room Air 05/29/18 15:41 59 05/29/18 14:36 123/52 05/29/18 12:00 Room Air 05/29/18 11:53 57 05/29/18 11:52 97.2 57 16 121/44 (69) 98 05/29/18 11:50 121/44 05/29/18 11:43 121/44 05/29/18 09:27 60 127/64 05/29/18 08:00 Room Air 05/29/18 08:00 97.0 61 20 127/64 (85) 97 05/29/18 07:55 58 05/29/18 06:15 135/55 05/29/18 04:00 Room Air 05/29/18 04:00 59 05/29/18 04:00 97.6 65 18 135/55 (81) 100 05/29/18 00:00 Room Air 05/28/18 23:48 57 05/28/18 23:19 135/99 05/28/18 23:19 96.6 60 20 135/99 (111) 100 Intake and Output 05/28/18 05/29/18 19:00 07:00 Intake Total 1410 ml 1330 ml Output Total 250 ml Balance 1410 ml 1080 ml Free Water 150 ml 90 ml IV Total 900 ml 850 ml Tube Feeding 360 ml 390 ml Output Urine Total 250 ml # Bowel Movements 1 2 Laboratory Tests Test 05/29/18 03:45 White Blood Count 7.7 K/UL (4.8-10.8) Red Blood Count 2.95 M/UL (4.20-5.40) L Hemoglobin 8.8 G/DL (12.0-16.0) L Hematocrit 27.6 % (37.0-47.0) L Mean Corpuscular Volume 94 FL (80-99) Mean Corpuscular Hemoglobin 29.7 PG (27.0-31.0) Mean Corpuscular Hemoglobin Concent 31.7 G/DL (32.0-36.0) L Red Cell Distribution Width 15.4 % (11.6-14.8) H Platelet Count 208 K/UL (150-450) Mean Platelet Volume 7.9 FL (6.5-10.1) Neutrophils (%) (Auto) 72.3 % (45.0-75.0) Lymphocytes (%) (Auto) 12.5 % (20.0-45.0) L Monocytes (%) (Auto) 8.5 % (1.0-10.0) Eosinophils (%) (Auto) 5.8 % (0.0-3.0) H Basophils (%) (Auto) 0.9 % (0.0-2.0) Sodium Level 142 MMOL/L (136-145) Potassium Level 3.7 MMOL/L (3.5-5.1) Chloride Level 108 MMOL/L (98-107) H Carbon Dioxide Level 21 MMOL/L (21-32) Anion Gap 13 mmol/L (5-15) Blood Urea Nitrogen 176 mg/dL (7-18) H Creatinine 6.5 MG/DL (0.55-1.30) H Estimat Glomerular Filtration Rate mL/min (>60) Glucose Level 107 MG/DL (74-106) #H Hemoglobin A1c 6.2 % (4.3-6.0) H Uric Acid 7.5 MG/DL (2.6-7.2) H Calcium Level 8.2 MG/DL (8.5-10.1) L Phosphorus Level 6.3 MG/DL (2.5-4.9) H Magnesium Level 4.5 MG/DL (1.8-2.4) H Total Bilirubin 0.2 MG/DL (0.2-1.0) Aspartate Amino Transf (AST/SGOT) 34 U/L (15-37) Alanine Aminotransferase (ALT/SGPT) 44 U/L (12-78) Alkaline Phosphatase 186 U/L (46-116) H Troponin I 0.193 ng/mL (0.000-0.056) C-Reactive Protein, Quantitative 4.0 mg/dL (0.00-0.90) H Pro-B-Type Natriuretic Peptide 5663 pg/mL (0-125) H Total Protein 6.1 G/DL (6.4-8.2) L Albumin 1.8 G/DL (3.4-5.0) L Globulin 4.3 g/dL Albumin/Globulin Ratio 0.4 (1.0-2.7) L Height (Feet): 5 Height (Inches): 10.00 Weight (Pounds): 172 Medications Current Medications Medications (Trade) Dose Ordered Sig/Gelacio Route PRN Reason Start Time Stop Time Status Last Admin Dose Admin Acetaminophen (Tylenol) 650 mg Q6H PRN GT Mild Pain (Pain Scale 1-3) 05/28/18 09:45 2 09:44 Albuterol/ Ipratropium (Albuterol/ Ipratropium) 3 ml Q4H PRN HHN SOB and wheezing 05/28/18 10:00 06/02/18 09:59 Amlodipine Besylate (Norvasc) 5 mg DAILY GT 05/28/18 09:00 06/27/18 08:59 05/29/18 09:27 Aspirin (ASA) 81 mg DAILY GT 05/29/18 09:00 06/28/18 08:59 05/29/18 09:27 Dextrose (Dextrose 50%) 25 ml Q30M PRN IV Hypoglycemia 05/27/18 20:30 06/26/18 20:29 Dextrose (Dextrose 50%) 50 ml Q30M PRN IV Hypoglycemia 05/27/18 20:30 06/26/18 20:29 Dextrose/Sodium Chloride 1,000 ml @ 50 mls/hr Q20H IV 05/29/18 12:00 06/28/18 11:59 05/29/18 11:46 Fluconazole (Diflucan) 100 mg DAILY GT 05/29/18 12:15 06/05/18 12:14 05/29/18 12:52 Hydralazine HCl (Apresoline) 12.5 mg Q6HR GT 05/28/18 18:00 06/27/18 00:00 05/29/18 17:49 Hydralazine HCl (Apresoline) 25 mg Q4HR PRN GT bp over 160syst 05/27/18 23:00 06/26/18 22:59 Insulin Aspart (NovoLOG) EVERY 6 HOURS SUBQ 05/30/18 00:00 06/27/18 06:29 Isosorbide Dinitrate (Isordil) 10 mg Q8HR GT 05/29/18 14:00 06/28/18 13:59 05/29/18 21:05 Lansoprazole (Prevacid) 30 mg Q12HR GT 05/28/18 09:00 06/27/18 08:59 05/29/18 20:39 Levetiracetam (Keppra) 750 mg Q12HR GT 05/28/18 09:00 06/27/18 08:59 05/29/18 20:40 Metoprolol Tartrate (Lopressor) 25 mg Q12HR ORAL 05/29/18 21:00 06/28/18 20:59 05/29/18 20:39 Nitroglycerin (Ntg) 1 patch Q24H TDERMAL 05/29/18 12:00 06/28/18 11:59 05/29/18 11:50 Sevelamer Carbonate (Renvela) 1,600 mg THREE TIMES A DAY NG 05/29/18 13:00 06/28/18 12:59 05/29/18 17:49 Assessment/Plan Assessment/Plan Hematology/Oncology Consultation Requesting MD: Krzysztof Schneider M.D. Date of Service: 05/29/18 Reason for consultation:Anemia HPI: This is an 82-year-old female who was brought in from [facility] for diminished oxygen saturation and altered mental status. She also had bradycardia in nursing facility. Patient has history of hypertension, paroxysmal atrial fibrillation, and renal failure.The patient was started on oxygen. Patient is nonverbal, can not get any history from the patient. Past Medical/Past Surgical Hx: Significant for dementia. 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 Social Hx: No history of alcohol, drug abuse, or smoking. Code Status is DNR. No other history obtainable by the patient. Family history: none Allergies: Allergic to penicillin but in the previous admission tolerated cefepime and meropenem. Home meds: Patient is getting aspirin, albuterol ipratropium, Tylenol, Prevacid , Norvasc, insulin NPH, insulin Aspart, hydralazine. ROS: Constitutional: No fever, no chills, no night sweats, no fatigue Skin: No rashes, lumps, itchiness, dryness HEENT: No MALONE, ear ache, visual changes, double vision, nosebleeds, sore throat, lumps, swollen glands Pulmonary: No cough, sputum, shortness of breath, coughing up blood, hemoptysis Cardiovascular: No chest pain, tightness, Bradycardia GI: No nausea, vomiting, diarrhea, melena, hematochezia, change in appetite, abdominal pain : pyuria, urinary tract infection Musculoskeletal: No joint swelling or muscle pain, no edema Neurologic: Altered mental status Physical Exam Vitals: Temperature 96.8, pulse 59, blood pressure 151/63. General Appearance: A+O x3, NAD HEENT: normocephalic, atraumatic Neck: non-tender, normal alignment Respiratory/Chest: chest wall non-tender, lungs clear Cardiovascular/Chest: normal peripheral pulses, normal rate Abdomen: Soft, nontender. G-tube feeding. Extremities: normal range of motion, No edema. LABORATORY AND DIAGNOSTIC DATA: Sodium 140, potassium 4.6, chloride 108, bicarb 21, BUN 168, creatinine 6.4, glucose 258. Lactic acid was 1.8 within normal limits. Albumin is 1.9. WBC 8.3, hemoglobin 8.4, hematocrit 26.2, platelets 195. UA showed WBC too numerous to count, many bacteria, leukocyte esterase 2+, nitrite negative. Urine culture so far is negative. Chest x-ray showed congestion and cardiomegaly. Official chest x-ray report is pending. Assessment and Recommendations: # Anemia due to underlying chronic medical issues, multifactorial --> Anemia w/u has been ordered --> No evidence of hemolysis is noted, peripheral smear has been ordered. --> hgb goal >7. Transfuse prn. --> Epogen and iron started # Pyuria, --> rule out UTI -->patient on cefepime. will follow up the culture. --> appreciate Nephrology consult # Decrease in O2 saturation, --> congestion in chest x-ray, cannot rule out any early pneumonia. # End-stage renal disease -- DNR DNI and CrCl 8 - No dialysis was entertained due to underlying debility and code status --> currently DNR. Dr. Ortiz is following. -->Not getting dialysis at this point -->awaiting for family to decide re HD # Bradycardia. --> requiring atropine injection. -->The patient is off sinus or AV miguel angel blocking agents --> Currently in sinus rhythm. # Hypertension --> on Norvasc 5 mg per G-tube daily and p.r.n.hydralazine. # Dysphagia, status post PEG placement. # History of pleural effusion, status post thoracentesis. # Right femoral pseudoaneurysm, status post thrombin injection. # Advanced dementia. # Penicillin allergy. The timing of this note does not necessarily reflect the time of the patient was seen Greatly appreciate consultation! Aleksandr Kern MD May 29, 2018 21:44
--- NOTE | 2018-05-29 21:49 | General Progress Note ---
Assessment/Plan Problem List: (1) Diabetic nephropathy ICD Codes: E11.21 - Type 2 diabetes mellitus with diabetic nephropathy SNOMED: 82372711, 937436908 (2) Hypertension ICD Codes: I10 - Essential (primary) hypertension SNOMED: 01638469 (3) Decubitus ulcer of sacral region, unstageable ICD Codes: L89.150 - Pressure ulcer of sacral region, unstageable SNOMED: 869379814, 721987723 (4) Urinary tract infection ICD Codes: N39.0 - Urinary tract infection, site not specified SNOMED: 72686242 (5) CKD (chronic kidney disease) ICD Codes: N18.9 - Chronic kidney disease, unspecified SNOMED: 952674076 (6) Altered mental status ICD Codes: R41.82 - Altered mental status, unspecified SNOMED: 924702296 (7) Encephalopathy due to metabolic factor or toxin SNOMED: 462394753 (8) Anemia ICD Codes: D64.9 - Anemia, unspecified SNOMED: 357400829 (9) MARK (acute kidney injury) ICD Codes: N17.9 - Acute kidney failure, unspecified SNOMED: 81137908 Status: progressing Assessment/Plan afebrile arf on top of cri lyte abnormality decub ams metabolic encephalopathy poor prognosis Subjective ROS Limited/Unobtainable: Yes Allergies: Coded Allergies: PENICILLINS (Unverified Allergy, Mild, 04/20/18) 04/20/18- Patient has been on pip-tazo for this admission since 04/15/18 as well as previous admission. Pt has Penicillin allergy on profile-unknown reactions. Mirza Gallo and [place] French aware of allergy and are okay with continuing with pip-tazo. No reactions noted Objective Last 24 Hour Vital Signs Date Time Temp Pulse Resp B/P (MAP) Pulse Ox O2 Delivery O2 Flow Rate FiO2 05/29/18 21:05 126/60 05/29/18 20:39 64 132/58 05/29/18 17:49 142/62 05/29/18 16:00 97.3 63 20 124/55 (78) 97 05/29/18 16:00 Room Air 05/29/18 15:41 59 05/29/18 14:36 123/52 05/29/18 12:00 Room Air 05/29/18 11:53 57 05/29/18 11:52 97.2 57 16 121/44 (69) 98 05/29/18 11:50 121/44 05/29/18 11:43 121/44 05/29/18 09:27 60 127/64 05/29/18 08:00 Room Air 05/29/18 08:00 97.0 61 20 127/64 (85) 97 05/29/18 07:55 58 05/29/18 06:15 135/55 05/29/18 04:00 Room Air 05/29/18 04:00 59 05/29/18 04:00 97.6 65 18 135/55 (81) 100 05/29/18 00:00 Room Air 05/28/18 23:48 57 05/28/18 23:19 135/99 05/28/18 23:19 96.6 60 20 135/99 (111) 100 Intake and Output 05/28/18 05/29/18 19:00 07:00 Intake Total 1410 ml 1330 ml Output Total 250 ml Balance 1410 ml 1080 ml Free Water 150 ml 90 ml IV Total 900 ml 850 ml Tube Feeding 360 ml 390 ml Output Urine Total 250 ml # Bowel Movements 1 2 Laboratory Tests 05/29/18 03:45: White Blood Count 7.7, Red Blood Count 2.95L, Hemoglobin 8.8L, Hematocrit 27.6L , Mean Corpuscular Volume 94, Mean Corpuscular Hemoglobin 29.7, Mean Corpuscular Hemoglobin Concent 31.7L, Red Cell Distribution Width 15.4H, Platelet Count 208, Mean Platelet Volume 7.9, Neutrophils (%) (Auto) 72.3, Lymphocytes (%) (Auto) 12.5L, Monocytes (%) (Auto) 8.5, Eosinophils (%) (Auto) 5.8H, Basophils (%) (Auto) 0.9, Sodium Level 142, Potassium Level 3.7, Chloride Level 108H, Carbon Dioxide Level 21, Anion Gap 13, Blood Urea Nitrogen 176H, Creatinine 6.5H, Estimat Glomerular Filtration Rate , Glucose Level 107#H, Hemoglobin A1c 6.2H, Uric Acid 7.5H, Calcium Level 8.2L, Phosphorus Level 6.3H, Magnesium Level 4.5H, Total Bilirubin 0.2, Aspartate Amino Transf (AST/SGOT) 34 , Alanine Aminotransferase (ALT/SGPT) 44, Alkaline Phosphatase 186H, Troponin I 0.193H, C-Reactive Protein, Quantitative 4.0H, Pro-B-Type Natriuretic Peptide 5663H, Total Protein 6.1L, Albumin 1.8L, Globulin 4.3, Albumin/Globulin Ratio 0.4L Height (Feet): 5 Height (Inches): 10.00 Weight (Pounds): 172 Cardiovascular: normal rate Respiratory/Chest: lungs clear Abdomen: soft Krzysztof Schneider MD May 29, 2018 21:49
[2018-05-30] VITALS: BP 121/65
[2018-05-30 04:00] VITALS: BP 150/68
[2018-05-30 05:50] LABS: BASOPHILS % (AUTO) 0.9 % (0.0-2.0); HEMATOCRIT 26.2 % (37.0-47.0); HEMOGLOBIN 8.3 G/DL (12.0-16.0); MEAN CORPUSCULAR VOLUME 94 FL (80-99); MONOCYTES % (AUTO) 8.3 % (1.0-10.0); NEUTROPHILS % (AUTO) 74.8 % (45.0-75.0); PLATELET COUNT 210 K/UL (150-450); RED BLOOD COUNT 2.79 M/UL (4.20-5.40); RED CELL DISTRIBUTION WIDTH 15.1 % (11.6-14.8); WHITE BLOOD COUNT 8.3 K/UL (4.8-10.8)
[2018-05-30] MEDS: HydrALAZINE 25mg tab GT SCH ×3 (06:05→17:14)
[2018-05-30] MEDS: NovoLOG Insulin Flexpen SUBQ SCH ×3 (06:07→17:09)
[2018-05-30 06:50] LABS: ALANINE AMINOTRANSFERASE 38 U/L (12-78); ALBUMIN 1.8 G/DL (3.4-5.0); ALBUMIN/GLOBULIN RATIO 0.4 (1.0-2.7); ALKALINE PHOSPHATASE 177 U/L (46-116); ANION GAP 14 mmol/L (5-15); ASPARTATE AMINO TRANSFERASE 24 U/L (15-37); BILIRUBIN,TOTAL 0.2 MG/DL (0.2-1.0); BLOOD UREA NITROGEN 174 mg/dL (7-18); CALCIUM 8.1 MG/DL (8.5-10.1); CARBON DIOXIDE 20 MMOL/L (21-32); CHLORIDE 106 MMOL/L (98-107); CREATININE 6.7 MG/DL (0.55-1.30); POTASSIUM 3.8 MMOL/L (3.5-5.1); SODIUM 140 MMOL/L (136-145)
[2018-05-30 07:17] LABS: PHOSPHORUS 6.7 MG/DL (2.5-4.9)
--- NOTE | 2018-05-30 07:20 | NUR ---
NURSE NOTES: RECEIVED BED SIDE REPORT FROM [facility] [employer] OF NOC SHIFT.RECEIVED PT WITH HOB ELEVATED 45 DEGREE NON-VERBAL ,LEGALLY BLIND.PT IS DNR STATUS ,FULL BODY ASSESSMENT DONE AND REPOSITIONED THE PT TO PROVIDE COMFORT AND TO PREVENT FURTHER SKIN BREAK DOWN.PT RECEIVING NEPRO @ 30CC/HRS VIA GT ,TOLERATING WELL ,NO RESIDUAL NOTED AT THIS TIME.WILL CONT TO MONITOR.
--- NOTE | 2018-05-30 07:24 | NUR ---
HAND-OFF: Report given to DIPAK Lang. Pt stable at this time, VSS.
[2018-05-30 08:00] VITALS: BP 144/64
[2018-05-30] MEDS: D5 1/2NS 1,000 ML IV SCH ×2 (08:00→18:13)
[2018-05-30] MEDS: Aspirin Baby 81mg GT SCH (09:00)
[2018-05-30] MEDS: levETIRAcetam 500mg/5ml Liquid GT SCH ×2 (10:01→21:13)
[2018-05-30] MEDS: Fluconazole 100mg tab GT SCH (10:01)
[2018-05-30] MEDS: Renvela 800mg Pkt NG SCH ×4 (10:02→18:00)
[2018-05-30] MEDS: Metoprolol 25mg tab ORAL SCH (10:02)
--- NOTE | 2018-05-30 10:37 | Consultation ---
History of Present Illness General Date patient seen: May 30, 2018 Chief Complaint: Altered Level of Consciousness Reason for Consultation: sacral ulcer Present Illness HPI 82 year old female well known to me from prior hospital admissions. I have been caring for her wounds while she is hospitalized for some time now. She is unresponsive and unable to participate in exam but has been receiving great care. Currently admitted for medical care and management. Given severity of her decubitus ulcer surgery called to assist with care and management. patient seen, chart reviewed, patient examined. wounds stable. Allergies: Coded Allergies: PENICILLINS (Unverified Allergy, Mild, 04/20/18) 04/20/18- Patient has been on pip-tazo for this admission since 04/15/18 as well as previous admission. Pt has Penicillin allergy on profile-unknown reactions. Mirza Gallo and Belgica French aware of allergy and are okay with continuing with pip-tazo. No reactions noted Medication History Scheduled Amino Acids/Protein Hydrolys (Pro-Stat Liquid), 30 ML GT DAILY, (Reported) Amlodipine Besylate (Norvasc), 5 MG GT DAILY, (Reported) Ascorbic Acid* (Vitamin C*), 500 MG GT TWICE A DAY, (Reported) Aspirin* (Aspir 81*), 81 MG GT DAILY, (Reported) Darbepoetin Homer in Polysorbat (Aranesp), 40 MCG IM Q MONDAY, (Reported) Doxazosin Mesylate (Doxazosin Mesylate), 2 MG GT TWICE A DAY, (Reported) Gabapentin* (Gabapentin*), 100 MG GT THREE TIMES A DAY, (Reported) Hydralazine Hcl* (Hydralazine Hcl*), 75 MG GT EVERY 6 HOURS, (Reported) Insulin Human NPH (Novolin N), 20 UNITS SUBQ Q12HR, (Reported) Lansoprazole* (Prevacid*), 30 MG GT Q12HR, (Reported) Levetiracetam* (Levetiracetam*), 750 MG GT BID, (Reported) Losartan Potassium* (Losartan Potassium*), 25 MG GT TWICE A DAY, (Reported) Metoprolol Tartrate* (Metoprolol Tartrate*), 50 MG ORAL EVERY 12 HOURS, ( Reported) Multivits W-Min/Ferrous Gluc (Centrum Multivit-Mineral Liq), 5 ML GT DAILY, ( Reported) Nifedipine* (Nifedipine Er*), 60 MG ORAL Q8HR, (Reported) Nitroglycerin (Nitroglycerin Patch), 0.4 MG TD DAILY, (Reported) Nut.tx.impaired Renal Fxn,Soy (Nepro Carb Steady), 45 ML GT DAILY, (Reported) Zinc Gluconate (Zinc Gluconate), 220 MG GT DAILY, (Reported) [Fe Sulfate 75MG/ML], 7.5 ML GT TID, (Reported) [Santyl ointment], 250 UNITS TOPIC DAILY, (Reported) Scheduled PRN Acetaminophen* (Acetaminophen 325MG Tablet*), 650 MG GT Q4H PRN for For Pain, ( Reported) Clonidine Hcl* (Catapres*), 0.1 MG GT EVERY 6 HOURS PRN for >HTN 160, (Reported) Glucagon HCl (Glucagon HCl), 1 MG IJ every 5 minutes x3 PRN for hypoglycemia, ( Reported) Insulin Lispro (Humalog), 0 SUBQ Q6HR PRN for Sliding Scale, (Reported) Ipratropium/Albuterol Sulfate (DuoNeb 0.5-3(2.5)mg/3ml), 3 ML HHN Q4HR PRN for Shortness of Breath, (Reported) Patient History Limited by: medical condition History Provided By: Medical Record, PMD Healthcare decision maker SELF Resuscitation status Advanced Directive on File No Past Medical/Surgical History Past Medical/Surgical History: (1) Major depression (2) Pleural effusion (3) Seizure disorder (4) Pneumonia (5) Shock (6) Abnormal LFTs (7) Rectal abnormality (8) Mass of right thigh (9) Lung nodule < 6cm on CT (10) encephalopathy due to metabolic factor (11) Cardiac ischemia (12) Urinary tract infection (13) Sepsis (14) CKD (chronic kidney disease) (15) Encephalopathy due to metabolic factor or toxin (16) MARK (acute kidney injury) (17) Anemia (18) Diabetic nephropathy (19) Altered mental status (20) Diabetic nephropathy (21) Hypertension (22) Decubitus ulcer of sacral region, unstageable Review of Systems ROS Narrative cannot obtain Physical Exam General Appearance: no apparent distress Lines, tubes and drains: other HEENT: mucous membranes moist Neck: other Respiratory/Chest: normal breath sounds, no respiratory distress, no accessory muscle use Cardiovascular/Chest: normal rate Abdomen: soft, no organomegaly, no mass, feeding tube Extremities: other Skin Exam: warm/dry, other Neurologic: unresponsiveness Last 24 Hour Vital Signs Date Time Temp Pulse Resp B/P (MAP) Pulse Ox O2 Delivery O2 Flow Rate FiO2 05/30/18 10:02 68 144/64 05/30/18 10:02 68 144/64 05/30/18 08:00 Room Air 05/30/18 08:00 98.0 68 14 144/64 (90) 97 05/30/18 06:05 150/68 05/30/18 06:04 150/68 05/30/18 04:00 64 05/30/18 04:00 97.9 64 20 150/68 (95) 99 05/30/18 04:00 Room Air 05/30/18 00:00 Room Air 05/30/18 00:00 97.0 60 18 121/65 (83) 100 05/30/18 00:00 58 05/29/18 23:19 121/69 05/29/18 21:05 126/60 05/29/18 20:39 64 132/58 05/29/18 20:00 62 05/29/18 20:00 Room Air 05/29/18 20:00 97.7 64 20 132/50 (77) 99 05/29/18 17:49 142/62 05/29/18 16:00 97.3 63 20 124/55 (78) 97 05/29/18 16:00 Room Air 05/29/18 15:41 59 05/29/18 14:36 123/52 05/29/18 12:00 Room Air 05/29/18 11:53 57 05/29/18 11:52 97.2 57 16 121/44 (69) 98 05/29/18 11:50 121/44 05/29/18 11:43 121/44 Intake and Output 05/29/18 05/30/18 18:59 06:59 Intake Total 1370 ml 1110 ml Output Total 150 ml 1000 ml Balance 1220 ml 110 ml Free Water 230 ml 90 ml IV Total 780 ml 660 ml Tube Feeding 360 ml 360 ml Output Urine Total 150 ml 1000 ml # Bowel Movements 1 1 Laboratory Tests Test 05/30/18 03:30 White Blood Count 8.3 K/UL (4.8-10.8) Red Blood Count 2.79 M/UL (4.20-5.40) L Hemoglobin 8.3 G/DL (12.0-16.0) L Hematocrit 26.2 % (37.0-47.0) L Mean Corpuscular Volume 94 FL (80-99) Mean Corpuscular Hemoglobin 29.6 PG (27.0-31.0) Mean Corpuscular Hemoglobin Concent 31.6 G/DL (32.0-36.0) L Red Cell Distribution Width 15.1 % (11.6-14.8) H Platelet Count 210 K/UL (150-450) Mean Platelet Volume 7.9 FL (6.5-10.1) Neutrophils (%) (Auto) 74.8 % (45.0-75.0) Lymphocytes (%) (Auto) 12.0 % (20.0-45.0) L Monocytes (%) (Auto) 8.3 % (1.0-10.0) Eosinophils (%) (Auto) 4.0 % (0.0-3.0) H Basophils (%) (Auto) 0.9 % (0.0-2.0) Sodium Level 140 MMOL/L (136-145) Potassium Level 3.8 MMOL/L (3.5-5.1) Chloride Level 106 MMOL/L (98-107) Carbon Dioxide Level 20 MMOL/L (21-32) L Anion Gap 14 mmol/L (5-15) Blood Urea Nitrogen 174 mg/dL (7-18) H Creatinine 6.7 MG/DL (0.55-1.30) H Estimat Glomerular Filtration Rate mL/min (>60) Glucose Level 137 MG/DL (74-106) H Uric Acid 7.3 MG/DL (2.6-7.2) H Calcium Level 8.1 MG/DL (8.5-10.1) L Phosphorus Level 6.7 MG/DL (2.5-4.9) H Magnesium Level 4.5 MG/DL (1.8-2.4) H Total Bilirubin 0.2 MG/DL (0.2-1.0) Aspartate Amino Transf (AST/SGOT) 24 U/L (15-37) Alanine Aminotransferase (ALT/SGPT) 38 U/L (12-78) Alkaline Phosphatase 177 U/L (46-116) H Pro-B-Type Natriuretic Peptide 5194 pg/mL (0-125) H Total Protein 6.0 G/DL (6.4-8.2) L Albumin 1.8 G/DL (3.4-5.0) L Globulin 4.2 g/dL Albumin/Globulin Ratio 0.4 (1.0-2.7) L Height (Feet): 5 Height (Inches): 10.00 Weight (Pounds): 244 Medications Current Medications Medications (Trade) Dose Ordered Sig/Gelacio Route PRN Reason Start Time Stop Time Status Last Admin Dose Admin Acetaminophen (Tylenol) 650 mg Q6H PRN GT Mild Pain (Pain Scale 1-3) 05/28/18 09:45 06/27/18 09:44 Albuterol/ Ipratropium (Albuterol/ Ipratropium) 3 ml Q4H PRN HHN SOB and wheezing 05/28/18 10:00 06/02/18 09:59 Amlodipine Besylate (Norvasc) 5 mg DAILY GT 05/28/18 09:00 06/27/18 08:59 05/30/18 10:02 Aspirin (ASA) 81 mg DAILY GT 05/29/18 09:00 06/28/18 08:59 05/30/18 09:00 Dextrose (Dextrose 50%) 25 ml Q30M PRN IV Hypoglycemia 05/27/18 20:30 06/26/18 20:29 Dextrose (Dextrose 50%) 50 ml Q30M PRN IV Hypoglycemia 05/27/18 20:30 06/26/18 20:29 Dextrose/Sodium Chloride 1,000 ml @ 50 mls/hr Q20H IV 05/29/18 12:00 06/28/18 11:59 05/30/18 08:00 Fluconazole (Diflucan) 100 mg DAILY GT 05/29/18 12:15 06/05/18 12:14 05/30/18 10:01 Hydralazine HCl (Apresoline) 12.5 mg Q6HR GT 05/28/18 18:00 06/27/18 00:00 05/30/18 06:05 Hydralazine HCl (Apresoline) 25 mg Q4HR PRN GT bp over 160syst 05/27/18 23:00 06/26/18 22:59 Insulin Aspart (NovoLOG) EVERY 6 HOURS SUBQ 05/30/18 00:00 06/27/18 06:29 05/30/18 06:07 Iron Sucrose 100 mg/Sodium Chloride 60 ml @ 240 mls/hr BEDTIME IV 05/30/18 21:00 06/03/18 21:14 Isosorbide Dinitrate (Isordil) 10 mg Q8HR GT 05/29/18 14:00 06/28/18 13:59 05/30/18 06:04 Lansoprazole (Prevacid) 30 mg Q12HR GT 05/28/18 09:00 06/27/18 08:59 05/30/18 10:02 Levetiracetam (Keppra) 750 mg Q12HR GT 05/28/18 09:00 06/27/18 08:59 05/30/18 10:01 Metoprolol Tartrate (Lopressor) 25 mg Q12HR GT 05/30/18 21:00 06/28/18 20:59 Nitroglycerin (Ntg) 1 patch Q24H TDERMAL 05/29/18 12:00 06/28/18 11:59 05/29/18 11:50 Sevelamer Carbonate (Renvela) 1,600 mg THREE TIMES A DAY NG 05/29/18 13:00 06/28/18 12:59 05/30/18 10:02 Assessment/Plan Problem List: (1) Decubitus ulcer of sacral region, unstageable Assessment & Plan: 82F well knownt to me who has had snf wounds that have been being cared for. She presents with resolving full thickness pressure injury to sacrum (L)2cm x (W)5cm with small opening at sacrococcygeal (L)0.7cm x (W)0.6cm with surrounding pink epithelial base.Borders are intact and flat without induration periwound. Small amt sanguineous exudate .No odor noted. Small brittany-anal wound noted (L)0.6cm x (W)0.5cm R heel with dark discoloration fluctuant centrally,periwound is dry and intact(L)4.5cm x (W)6.8cm.Base of wound with biofilm ,erythema with induration.Small amt sanguineous exudate noted. L heel Boggy ,Boggy with dark skin tone.Border and periwound without erythema. Plan: Apply Moisture Barrier PAste to Sacrum.Cover with Optifoam drsg .Change every 3 days and prn. Apply Moisture Barrier Paste to brittany-anal wound with each perineal care. Apply Cavilon Skin Barrier wipe to both heels daily.Cover with Optifoam drsg .Change every 7 days and prn. Off-load Heels with Pillow. Reposition at least 2 hours or as tolerated. Air fluidized mattress. ICD Codes: L89.150 - Pressure ulcer of sacral region, unstageable SNOMED: [id number], [id number] Jean Marie Park May 30, 2018 10:37
--- NOTE | 2018-05-30 10:54 | NUR ---
Social Service Note LAISHA spoke with grandt Raven Gonzalez [phone]. Per Raven family has decided not to precede with dialysis and would like to speak with hospice company associated with [facility]. LAISHA spoke with [facility] [phone] and they provided [facility] contact information [phone]. Contact for [facility] [phone]. LAISHA provided [facility] contact information. LAISHA informed Dr. Schneider and Dr. Seirra updated family decision. No order to dc at this time. Will monitor and assist as needed.
--- NOTE | 2018-05-30 11:57 | Nephrology Progress Note ---
Assessment/Plan Problem List: (1) MARK (acute kidney injury) (2) CKD (chronic kidney disease) (3) Encephalopathy due to metabolic factor or toxin (4) Anemia (5) Diabetic nephropathy Assessment (1) Acute on chronic renal failure (2) Anemia (3) Diabetic nephropathy (4) Cardiac ischemia elevated troponin Plan recent admission: DNR DNI and CrCl 8 - No dialysis was entertained due to underlying debility and code status at this time: Nitrate- Hydralazine- Hydrate- Monitor BS- Anemia conn and watch avoid Nephrotoxics Monitor renal parameters discussed with Grand Daughter who declines dialysis and agrees with Hospice. OK to Dc from renal stand point Subjective ROS Limited/Unobtainable: Yes Objective Objective Last 24 Hour Vital Signs Date Time Temp Pulse Resp B/P (MAP) Pulse Ox O2 Delivery O2 Flow Rate FiO2 05/30/18 11:11 62 20 Room Air 21 05/30/18 11:10 62 22 Room Air 05/30/18 10:02 68 144/64 05/30/18 10:02 68 144/64 05/30/18 08:00 67 05/30/18 08:00 Room Air 05/30/18 08:00 98.0 68 14 144/64 (90) 97 05/30/18 06:05 150/68 05/30/18 06:04 150/68 05/30/18 04:00 64 05/30/18 04:00 97.9 64 20 150/68 (95) 99 05/30/18 04:00 Room Air 05/30/18 00:00 Room Air 05/30/18 00:00 97.0 60 18 121/65 (83) 100 05/30/18 00:00 58 05/29/18 23:19 121/69 05/29/18 21:05 126/60 05/29/18 20:39 64 132/58 05/29/18 20:00 62 05/29/18 20:00 Room Air 05/29/18 20:00 97.7 64 20 132/50 (77) 99 05/29/18 17:49 142/62 05/29/18 16:00 97.3 63 20 124/55 (78) 97 05/29/18 16:00 Room Air 05/29/18 15:41 59 05/29/18 14:36 123/52 05/29/18 12:00 Room Air Intake and Output 05/29/18 05/30/18 19:00 07:00 Intake Total 1855 ml 520 ml Output Total 150 ml 1000 ml Balance 1705 ml -480 ml Free Water 230 ml 90 ml IV Total 1265 ml 100 ml Tube Feeding 360 ml 330 ml Output Urine Total 150 ml 1000 ml # Bowel Movements 1 1 Laboratory Tests 05/30/18 03:30: White Blood Count 8.3, Red Blood Count 2.79L, Hemoglobin 8.3L, Hematocrit 26.2L , Mean Corpuscular Volume 94, Mean Corpuscular Hemoglobin 29.6, Mean Corpuscular Hemoglobin Concent 31.6L, Red Cell Distribution Width 15.1H, Platelet Count 210, Mean Platelet Volume 7.9, Neutrophils (%) (Auto) 74.8, Lymphocytes (%) (Auto) 12.0L, Monocytes (%) (Auto) 8.3, Eosinophils (%) (Auto) 4.0H, Basophils (%) (Auto) 0.9, Sodium Level 140, Potassium Level 3.8, Chloride Level 106, Carbon Dioxide Level 20L, Anion Gap 14, Blood Urea Nitrogen 174H, Creatinine 6.7H, Estimat Glomerular Filtration Rate , Glucose Level 137H, Uric Acid 7.3H, Calcium Level 8.1L, Phosphorus Level 6.7H, Magnesium Level 4.5H, Total Bilirubin 0.2, Aspartate Amino Transf (AST/SGOT) 24, Alanine Aminotransferase (ALT/SGPT) 38, Alkaline Phosphatase 177H, Pro-B-Type Natriuretic Peptide 5194H, Total Protein 6.0L, Albumin 1.8L, Globulin 4.2, Albumin/Globulin Ratio 0.4L Height (Feet): 5 Height (Inches): 10.00 Weight (Pounds): 244 General Appearance: no apparent distress Cardiovascular: normal rate Respiratory/Chest: decreased breath sounds Abdomen: distended Phil Ortiz MD May 30, 2018 11:57
[2018-05-30 12:00] VITALS: BP 118/60
--- NOTE | 2018-05-30 12:47 | Cardiac Electrophysiology PN ---
Assessment/Plan Assessment/Plan 1. Paroxysmal atrial fibrillation, in SR on metoprolol 25 mg bid and aspirin. 2. Hypertension, on Norvasc 5 mg daily, Lopressor, Isordil 10 tid and Hydralazine 12.5 q 6hr 3. Right femoral pseudoaneurysm, status post thrombin injection. 4. History of pleural effusion, status post thoracentesis. 5. Acute renal failure. VENTURA Ortiz. Awaiting family decision re dialysis 6. Dysphagia, status post PEG placement. 7. Dementia. 8. Troponin leak Non verbal. ECG showed RBBB with no change. Due to renal failure. 9. DNI DW RN Subjective Subjective No change.No dialysis yet.Non verbal Objective Last 24 Hour Vital Signs Date Time Temp Pulse Resp B/P (MAP) Pulse Ox O2 Delivery O2 Flow Rate FiO2 05/30/18 12:00 Room Air 05/30/18 12:00 98.2 59 20 118/60 (79) 98 05/30/18 11:11 62 20 Room Air 21 05/30/18 11:10 62 22 Room Air 05/30/18 10:02 68 144/64 05/30/18 10:02 68 144/64 05/30/18 08:00 67 05/30/18 08:00 Room Air 05/30/18 06:05 150/68 05/30/18 06:04 150/68 05/30/18 04:00 64 05/30/18 04:00 97.9 64 20 150/68 (95) 99 05/30/18 04:00 Room Air 05/30/18 00:00 Room Air 05/30/18 00:00 97.0 60 18 121/65 (83) 100 05/30/18 00:00 58 05/29/18 23:19 121/69 05/29/18 21:05 126/60 05/29/18 20:39 64 132/58 05/29/18 20:00 62 05/29/18 20:00 Room Air 05/29/18 20:00 97.7 64 20 132/50 (77) 99 05/29/18 17:49 142/62 05/29/18 16:00 97.3 63 20 124/55 (78) 97 05/29/18 16:00 Room Air 05/29/18 15:41 59 05/29/18 14:36 123/52 Intake and Output 05/29/18 05/30/18 19:00 07:00 Intake Total 1855 ml 520 ml Output Total 150 ml 1000 ml Balance 1705 ml -480 ml Free Water 230 ml 90 ml IV Total 1265 ml 100 ml Tube Feeding 360 ml 330 ml Output Urine Total 150 ml 1000 ml # Bowel Movements 1 1 Laboratory Tests Test 05/30/18 03:30 White Blood Count 8.3 K/UL (4.8-10.8) Red Blood Count 2.79 M/UL (4.20-5.40) L Hemoglobin 8.3 G/DL (12.0-16.0) L Hematocrit 26.2 % (37.0-47.0) L Mean Corpuscular Volume 94 FL (80-99) Mean Corpuscular Hemoglobin 29.6 PG (27.0-31.0) Mean Corpuscular Hemoglobin Concent 31.6 G/DL (32.0-36.0) L Red Cell Distribution Width 15.1 % (11.6-14.8) H Platelet Count 210 K/UL (150-450) Mean Platelet Volume 7.9 FL (6.5-10.1) Neutrophils (%) (Auto) 74.8 % (45.0-75.0) Lymphocytes (%) (Auto) 12.0 % (20.0-45.0) L Monocytes (%) (Auto) 8.3 % (1.0-10.0) Eosinophils (%) (Auto) 4.0 % (0.0-3.0) H Basophils (%) (Auto) 0.9 % (0.0-2.0) Sodium Level 140 MMOL/L (136-145) Potassium Level 3.8 MMOL/L (3.5-5.1) Chloride Level 106 MMOL/L (98-107) Carbon Dioxide Level 20 MMOL/L (21-32) L Anion Gap 14 mmol/L (5-15) Blood Urea Nitrogen 174 mg/dL (7-18) H Creatinine 6.7 MG/DL (0.55-1.30) H Estimat Glomerular Filtration Rate mL/min (>60) Glucose Level 137 MG/DL (74-106) H Uric Acid 7.3 MG/DL (2.6-7.2) H Calcium Level 8.1 MG/DL (8.5-10.1) L Phosphorus Level 6.7 MG/DL (2.5-4.9) H Magnesium Level 4.5 MG/DL (1.8-2.4) H Total Bilirubin 0.2 MG/DL (0.2-1.0) Aspartate Amino Transf (AST/SGOT) 24 U/L (15-37) Alanine Aminotransferase (ALT/SGPT) 38 U/L (12-78) Alkaline Phosphatase 177 U/L (46-116) H Pro-B-Type Natriuretic Peptide 5194 pg/mL (0-125) H Total Protein 6.0 G/DL (6.4-8.2) L Albumin 1.8 G/DL (3.4-5.0) L Globulin 4.2 g/dL Albumin/Globulin Ratio 0.4 (1.0-2.7) L Microbiology Date/Time Source Procedure Growth Status 05/27/18 15:20 Blood Blood Culture - Preliminary NO GROWTH AFTER 48 HOURS Resulted 05/27/18 15:20 Blood Blood Culture - Preliminary NO GROWTH AFTER 48 HOURS Resulted 05/27/18 15:20 Nasal Nares Left MRSA Culture - Final NO METHICILLIN RESISTANT STAPH AUREUS... Complete 05/27/18 16:00 Urine,Clean Catch Urine Culture - Final Ling Albicans Complete Objective HEAD AND NECK: No JVD. LUNGS: Coarse rhonchi. CARDIOVASCULAR: Irregular S1 and S2 with no gallop. ABDOMEN: Status post PEG. EXTREMITIES: 1+ pitting edema. Everett Nair MD May 30, 2018 12:47
[2018-05-30] MEDS: Nitroglycerin Patch 0.4mg TDERMAL SCH (12:59)
--- NOTE | 2018-05-30 13:45 | Infectious Diseases Prog Note ---
Assessment/Plan Assessment/Plan A: 1. Pyuria, Ling UTI. 2. Decrease in O2 saturation, congestion in chest x-ray, 3. Chronic kidney disease. 4. Diabetes mellitus. 5. Hypertension. 6. Advanced dementia. 7. Bradycardia. 8. Anemia. 9. Penicillin allergy. P; Continue Fluconazole X 1 day Family agreed to hospice & comfort care Subjective ROS Limited/Unobtainable: Yes Constitutional: Reports: no symptoms Allergies: Coded Allergies: PENICILLINS (Unverified Allergy, Mild, 04/20/18) 04/20/18- Patient has been on pip-tazo for this admission since 04/15/18 as well as previous admission. Pt has Penicillin allergy on profile-unknown reactions. Mirza Gallo and Belgica Padillaan aware of allergy and are okay with continuing with pip-tazo. No reactions noted Objective Vital Signs Last 24 Hour Vital Signs Date Time Temp Pulse Resp B/P (MAP) Pulse Ox O2 Delivery O2 Flow Rate FiO2 05/30/18 12:59 118/60 05/30/18 12:59 118/60 05/30/18 12:00 Room Air 05/30/18 12:00 98.2 59 20 118/60 (79) 98 05/30/18 11:11 62 20 Room Air 21 05/30/18 11:10 62 22 Room Air 05/30/18 10:02 68 144/64 05/30/18 10:02 68 144/64 05/30/18 08:00 67 05/30/18 08:00 Room Air 05/30/18 08:00 98.0 68 21 144/64 (90) 97 68 05/30/18 06:05 150/68 05/30/18 06:04 150/68 05/30/18 04:00 64 05/30/18 04:00 97.9 64 20 150/68 (95) 99 05/30/18 04:00 Room Air 05/30/18 00:00 Room Air 05/30/18 00:00 97.0 60 18 121/65 (83) 100 05/30/18 00:00 58 05/29/18 23:19 121/69 05/29/18 21:05 126/60 05/29/18 20:39 64 132/58 05/29/18 20:00 62 05/29/18 20:00 Room Air 05/29/18 20:00 97.7 64 20 132/50 (77) 99 05/29/18 17:49 142/62 05/29/18 16:00 97.3 63 20 124/55 (78) 97 05/29/18 16:00 Room Air 05/29/18 15:41 59 05/29/18 14:36 123/52 Height (Feet): 5 Height (Inches): 10.00 Weight (Pounds): 244 HEENT: mucous membranes moist Respiratory/Chest: lungs clear Cardiovascular: normal rate Abdomen: soft, non tender, other - GT feeding Extremities: other - edema Skin: ulcers, other - sacral unstagable Neurologic/Psychiatric: alert, aphasia Microbiology Date/Time Source Procedure Growth Status 05/27/18 15:20 Blood Blood Culture - Preliminary NO GROWTH AFTER 48 HOURS Resulted 05/27/18 15:20 Blood Blood Culture - Preliminary NO GROWTH AFTER 48 HOURS Resulted 05/27/18 15:20 Nasal Nares Left MRSA Culture - Final NO METHICILLIN RESISTANT STAPH AUREUS... Complete 05/27/18 16:00 Urine,Clean Catch Urine Culture - Final Ling Albicans Complete Laboratory Tests Test 05/30/18 03:30 White Blood Count 8.3 K/UL (4.8-10.8) Red Blood Count 2.79 M/UL (4.20-5.40) L Hemoglobin 8.3 G/DL (12.0-16.0) L Hematocrit 26.2 % (37.0-47.0) L Mean Corpuscular Volume 94 FL (80-99) Mean Corpuscular Hemoglobin 29.6 PG (27.0-31.0) Mean Corpuscular Hemoglobin Concent 31.6 G/DL (32.0-36.0) L Red Cell Distribution Width 15.1 % (11.6-14.8) H Platelet Count 210 K/UL (150-450) Mean Platelet Volume 7.9 FL (6.5-10.1) Neutrophils (%) (Auto) 74.8 % (45.0-75.0) Lymphocytes (%) (Auto) 12.0 % (20.0-45.0) L Monocytes (%) (Auto) 8.3 % (1.0-10.0) Eosinophils (%) (Auto) 4.0 % (0.0-3.0) H Basophils (%) (Auto) 0.9 % (0.0-2.0) Sodium Level 140 MMOL/L (136-145) Potassium Level 3.8 MMOL/L (3.5-5.1) Chloride Level 106 MMOL/L (98-107) Carbon Dioxide Level 20 MMOL/L (21-32) L Anion Gap 14 mmol/L (5-15) Blood Urea Nitrogen 174 mg/dL (7-18) H Creatinine 6.7 MG/DL (0.55-1.30) H Estimat Glomerular Filtration Rate mL/min (>60) Glucose Level 137 MG/DL (74-106) H Uric Acid 7.3 MG/DL (2.6-7.2) H Calcium Level 8.1 MG/DL (8.5-10.1) L Phosphorus Level 6.7 MG/DL (2.5-4.9) H Magnesium Level 4.5 MG/DL (1.8-2.4) H Total Bilirubin 0.2 MG/DL (0.2-1.0) Aspartate Amino Transf (AST/SGOT) 24 U/L (15-37) Alanine Aminotransferase (ALT/SGPT) 38 U/L (12-78) Alkaline Phosphatase 177 U/L (46-116) H Pro-B-Type Natriuretic Peptide 5194 pg/mL (0-125) H Total Protein 6.0 G/DL (6.4-8.2) L Albumin 1.8 G/DL (3.4-5.0) L Globulin 4.2 g/dL Albumin/Globulin Ratio 0.4 (1.0-2.7) L Current Medications Medications (Trade) Dose Ordered Sig/Gelacio Route PRN Reason Start Time Stop Time Status Last Admin Dose Admin Acetaminophen (Tylenol) 650 mg Q6H PRN GT Mild Pain (Pain Scale 1-3) 05/28/18 09:45 06/27/18 09:44 Albuterol/ Ipratropium (Albuterol/ Ipratropium) 3 ml Q4H PRN HHN SOB and wheezing 05/28/18 10:00 06/02/18 09:59 Amlodipine Besylate (Norvasc) 5 mg DAILY GT 05/28/18 09:00 06/27/18 08:59 05/30/18 10:02 Aspirin (ASA) 81 mg DAILY GT 05/29/18 09:00 06/28/18 08:59 05/30/18 09:00 Dextrose (Dextrose 50%) 25 ml Q30M PRN IV Hypoglycemia 05/27/18 20:30 06/26/18 20:29 Dextrose (Dextrose 50%) 50 ml Q30M PRN IV Hypoglycemia 05/27/18 20:30 06/26/18 20:29 Dextrose/Sodium Chloride 1,000 ml @ 50 mls/hr Q20H IV 05/29/18 12:00 06/28/18 11:59 05/30/18 08:00 Fluconazole (Diflucan) 100 mg DAILY GT 05/29/18 12:15 06/05/18 12:14 05/30/18 10:01 Hydralazine HCl (Apresoline) 12.5 mg Q6HR GT 05/28/18 18:00 06/27/18 00:00 05/30/18 12:59 Hydralazine HCl (Apresoline) 25 mg Q4HR PRN GT bp over 160syst 05/27/18 23:00 06/26/18 22:59 Insulin Aspart (NovoLOG) EVERY 6 HOURS SUBQ 05/30/18 00:00 06/27/18 06:29 05/30/18 12:37 Iron Sucrose 100 mg/Sodium Chloride 60 ml @ 240 mls/hr BEDTIME IV 05/30/18 21:00 06/03/18 21:14 Isosorbide Dinitrate (Isordil) 10 mg Q8HR GT 05/29/18 14:00 06/28/18 13:59 05/30/18 06:04 Lansoprazole (Prevacid) 30 mg Q12HR GT 05/28/18 09:00 06/27/18 08:59 05/30/18 10:02 Levetiracetam (Keppra) 750 mg Q12HR GT 05/28/18 09:00 06/27/18 08:59 05/30/18 10:01 Metoprolol Tartrate (Lopressor) 25 mg Q12HR GT 05/30/18 21:00 06/28/18 20:59 Nitroglycerin (Ntg) 1 patch Q24H TDERMAL 05/29/18 12:00 2/14/19 11:59 05/30/18 12:59 Sevelamer Carbonate (Renvela) 1,600 mg THREE TIMES A DAY NG 05/29/18 13:00 06/28/18 12:59 05/30/18 10:02 Wilder French MD May 30, 2018 13:45
--- NOTE | 2018-05-30 14:44 | NUR ---
CASE MANAGEMENT: REVIEW SI: ALOC . MARK . 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
[2018-05-30 16:00] VITALS: BP 132/55
--- NOTE | 2018-05-30 17:24 | General Progress Note ---
Assessment/Plan Assessment/Plan Assessment and Recommendations: # Anemia due to underlying chronic medical issues, multifactorial --> Anemia w/u has been ordered --> No evidence of hemolysis is noted, peripheral smear has been ordered. --> hgb goal >7. Transfuse prn. --> Epogen and iron started # Pyuria, --> rule out UTI -->patient on cefepime. will follow up the culture. --> appreciate Nephrology consult # Decrease in O2 saturation, --> congestion in chest x-ray, cannot rule out any early pneumonia. # End-stage renal disease -- DNR DNI and CrCl 8 - No dialysis was entertained due to underlying debility and code status --> currently DNR. Dr. Ortiz is following. -->Not getting dialysis at this point -->awaiting for family to decide re HD -->Family agreed to hospice & comfort care # Bradycardia. --> requiring atropine injection. -->The patient is off sinus or AV miguel angel blocking agents --> Currently in sinus rhythm. # Hypertension --> on Norvasc 5 mg per G-tube daily and p.r.n.hydralazine. # Dysphagia, status post PEG placement. # History of pleural effusion, status post thoracentesis. # Right femoral pseudoaneurysm, status post thrombin injection. # Advanced dementia. # Penicillin allergy. The timing of this note does not necessarily reflect the time of the patient was seen Greatly appreciate consultation! Subjective Constitutional: Denies: no symptoms, chills, diaphoresis, fever, malaise, weakness, other HEENT: Denies: no symptoms, eye pain, blurred vision, tearing, double vision, ear pain, ear discharge, nose pain, nose congestion, throat pain, throat swelling, mouth pain, mouth swelling, other Cardiovascular: Denies: no symptoms, chest pain, edema, irregular heart rate, lightheadedness, palpitations, syncope, other Respiratory: Denies: no symptoms, cough, orthopnea, shortness of breath, SOB with excertion, SOB at rest, sputum, stridor, wheezing, other Gastrointestinal/Abdominal: Denies: no symptoms, abdomen distended, abdominal pain, black stools, tarry stools, blood in stool, constipated, diarrhea, difficulty swallowing, nausea, poor appetite, poor fluid intake, rectal bleeding , vomiting, other Genitourinary: Denies: no symptoms, burning, discharge, frequency, flank pain, hematuria, incontinence, pain, urgency, other Neurologic/Psychiatric: Denies: no symptoms, anxiety, depressed, emotional problems, headache, numbness, paresthesia, pre-existing deficit, seizure, tingling, tremors, weakness, other Endocrine: Denies: no symptoms, excessive sweating, flushing, intolerance to cold, intolerance to heat, increased hunger, increased thirst, increased urine, unexplained weight gain, unexplained weight loss, other Hematologic/Lymphatic: Denies: no symptoms, anemia, easy bleeding, easy bruising, other Allergies: Coded Allergies: PENICILLINS (Unverified Allergy, Mild, 04/20/18) 04/20/18- Patient has been on pip-tazo for this admission since 04/15/18 as well as previous admission. Pt has Penicillin allergy on profile-unknown reactions. Mirza Gallo and Belgica Padillaan aware of allergy and are okay with continuing with pip-tazo. No reactions noted Subjective 05/30: Pt is awake and comfortable, No dialysis was entertained due to underlying debility and code status, Family agreed to hospice & comfort care Objective Last 24 Hour Vital Signs Date Time Temp Pulse Resp B/P (MAP) Pulse Ox O2 Delivery O2 Flow Rate FiO2 05/30/18 16:00 Room Air 05/30/18 16:00 98.7 65 20 132/55 (80) 95 05/30/18 13:45 118/60 05/30/18 12:59 118/60 05/30/18 12:59 118/60 05/30/18 12:00 Room Air 05/30/18 12:00 98.2 59 20 118/60 (79) 98 05/30/18 12:00 61 05/30/18 11:11 62 20 Room Air 21 05/30/18 11:10 62 22 Room Air 05/30/18 10:02 68 144/64 05/30/18 10:02 68 144/64 05/30/18 08:00 67 05/30/18 08:00 Room Air 05/30/18 08:00 98.0 68 21 144/64 (90) 97 68 05/30/18 06:05 150/68 05/30/18 06:04 150/68 05/30/18 04:00 64 05/30/18 04:00 97.9 64 20 150/68 (95) 99 05/30/18 04:00 Room Air 05/30/18 00:00 Room Air 05/30/18 00:00 97.0 60 18 121/65 (83) 100 05/30/18 00:00 58 05/29/18 23:19 121/69 05/29/18 21:05 126/60 05/29/18 20:39 64 132/58 05/29/18 20:00 62 05/29/18 20:00 Room Air 05/29/18 20:00 97.7 64 20 132/50 (77) 99 05/29/18 17:49 142/62 Intake and Output 05/29/18 05/30/18 19:00 07:00 Intake Total 1855 ml 550 ml Output Total 150 ml 1000 ml Balance 1705 ml -450 ml Free Water 230 ml 90 ml IV Total 1265 ml 100 ml Tube Feeding 360 ml 360 ml Output Urine Total 150 ml 1000 ml # Bowel Movements 1 1 Laboratory Tests 05/30/18 03:30: White Blood Count 8.3, Red Blood Count 2.79L, Hemoglobin 8.3L, Hematocrit 26.2L , Mean Corpuscular Volume 94, Mean Corpuscular Hemoglobin 29.6, Mean Corpuscular Hemoglobin Concent 31.6L, Red Cell Distribution Width 15.1H, Platelet Count 210, Mean Platelet Volume 7.9, Neutrophils (%) (Auto) 74.8, Lymphocytes (%) (Auto) 12.0L, Monocytes (%) (Auto) 8.3, Eosinophils (%) (Auto) 4.0H, Basophils (%) (Auto) 0.9, Sodium Level 140, Potassium Level 3.8, Chloride Level 106, Carbon Dioxide Level 20L, Anion Gap 14, Blood Urea Nitrogen 174H, Creatinine 6.7H, Estimat Glomerular Filtration Rate , Glucose Level 137H, Uric Acid 7.3H, Calcium Level 8.1L, Phosphorus Level 6.7H, Magnesium Level 4.5H, Total Bilirubin 0.2, Aspartate Amino Transf (AST/SGOT) 24, Alanine Aminotransferase (ALT/SGPT) 38, Alkaline Phosphatase 177H, Pro-B-Type Natriuretic Peptide 5194H, Total Protein 6.0L, Albumin 1.8L, Globulin 4.2, Albumin/Globulin Ratio 0.4L Height (Feet): 5 Height (Inches): 10.00 Weight (Pounds): 244 Aleksandr Kern MD May 30, 2018 17:24
[2018-05-30] MEDS ORDERED: Albuterol/Ipratropium 3ml neb HHN PRN (18:00)
--- NOTE | 2018-05-30 18:00 | NUR ---
PT NURSE NOTES: PT TRANSFER VIA BED ON STABLE CONDITIONS TO [facility] AND REPORT GIVEN TO SHANNEN AGRONOMY SPECIALIST .
--- NOTE | 2018-05-30 18:10 | NUR ---
NURSE NOTES: Received patient from Rickey from [facility]. Patient is non-verbal, bed bound. Breathing is even and unlabored. On room air, no wheezing or congestion. No belongings received. GT intact, no leaking, IV on left hand intact, no s/s of infiltration.Degroot is draining to gravity. On p200 mattress. Wound dressing intact on sacral and left and right heel. Picture obtained. HOB elevated to prevent aspiration. No residual from GT. Patient is on GT feeding of nepro @30cc/hr. Will continue plan of care.
[2018-05-30] MEDS ORDERED: HydrALAZINE 25mg tab GT PRN (18:30)
--- NOTE | 2018-05-30 19:19 | NUR ---
HAND-OFF: Report given to
--- NOTE | 2018-05-30 19:30 | NUR ---
NURSE NOTES: Received patient in no apparent distress. A&OX0, non verbal. IV site patent and intact. G-tube in place, running Nepro 30cc/hr, 0cc residual noted, flushed, elevated HOB. Degroot draining well by gravity, yellow urine noted. Bed in lowest position. Call light within reach. Will continue to monitor.
[2018-05-30 20:00] VITALS: BP 156/88
[2018-05-30] MEDS ORDERED: Iron Sucrose 100 MG in NS 55 ML IV SCH ×4 (21:00)
[2018-05-30] MEDS ORDERED: Metoprolol 25mg tab GT SCH (21:00)
[2018-05-30] MEDS: Metoprolol 25mg tab GT SCH (21:11)
[2018-05-30] MEDS ORDERED: Acetaminophen 650mg/20.3ml GT PRN (21:45)
--- NOTE | 2018-05-30 22:30 | General Progress Note ---
Assessment/Plan Problem List: (1) Diabetic nephropathy ICD Codes: E11.21 - Type 2 diabetes mellitus with diabetic nephropathy SNOMED: 93550864, 067694838 (2) Hypertension ICD Codes: I10 - Essential (primary) hypertension SNOMED: 80158770 (3) Decubitus ulcer of sacral region, unstageable ICD Codes: L89.150 - Pressure ulcer of sacral region, unstageable SNOMED: 012309896, 321884990 (4) Urinary tract infection ICD Codes: N39.0 - Urinary tract infection, site not specified SNOMED: 73497002 (5) CKD (chronic kidney disease) ICD Codes: N18.9 - Chronic kidney disease, unspecified SNOMED: 157347131 (6) Altered mental status ICD Codes: R41.82 - Altered mental status, unspecified SNOMED: 176259576 (7) Encephalopathy due to metabolic factor or toxin SNOMED: 727306678 (8) Anemia ICD Codes: D64.9 - Anemia, unspecified SNOMED: 721589120 (9) MARK (acute kidney injury) ICD Codes: N17.9 - Acute kidney failure, unspecified SNOMED: 27563238 Status: unchanged Assessment/Plan dpoa wants comfort care afebrile not a good condidate for diaylsis per dr burks comfort care arf on top of cri lyte abnormality decub ams metabolic encephalopathy poor prognosis Subjective ROS Limited/Unobtainable: Yes Allergies: Coded Allergies: PENICILLINS (Unverified Allergy, Mild, 04/20/18) 04/20/18- Patient has been on pip-tazo for this admission since 04/15/18 as well as previous admission. Pt has Penicillin allergy on profile-unknown reactions. Mirza Gallo and Belgica French aware of allergy and are okay with continuing with pip-tazo. No reactions noted Objective Last 24 Hour Vital Signs Date Time Temp Pulse Resp B/P (MAP) Pulse Ox O2 Delivery O2 Flow Rate FiO2 05/30/18 21:12 156/88 05/30/18 21:11 65 156/88 05/30/18 20:00 64 20 Room Air 21 05/30/18 20:00 97.5 65 20 156/88 (110) 94 05/30/18 17:14 132/55 05/30/18 16:00 Room Air 05/30/18 16:00 47 05/30/18 16:00 98.7 65 20 132/55 (80) 95 05/30/18 13:45 118/60 05/30/18 12:59 118/60 05/30/18 12:59 118/60 05/30/18 12:00 Room Air 05/30/18 12:00 98.2 59 20 118/60 (79) 98 05/30/18 12:00 61 05/30/18 11:11 62 20 Room Air 21 05/30/18 11:10 62 22 Room Air 05/30/18 10:02 68 144/64 05/30/18 10:02 68 144/64 05/30/18 08:00 67 05/30/18 08:00 Room Air 05/30/18 08:00 98.0 68 21 144/64 (90) 97 68 05/30/18 06:05 150/68 05/30/18 06:04 150/68 05/30/18 04:00 64 05/30/18 04:00 97.9 64 20 150/68 (95) 99 05/30/18 04:00 Room Air 05/30/18 00:00 Room Air 05/30/18 00:00 97.0 60 18 121/65 (83) 100 05/30/18 00:00 58 05/29/18 23:19 121/69 Intake and Output 05/29/18 05/30/18 19:00 07:00 Intake Total 1855 ml 550 ml Output Total 150 ml 1000 ml Balance 1705 ml -450 ml Free Water 230 ml 90 ml IV Total 1265 ml 100 ml Tube Feeding 360 ml 360 ml Output Urine Total 150 ml 1000 ml # Bowel Movements 1 1 Laboratory Tests 05/30/18 03:30: White Blood Count 8.3, Red Blood Count 2.79L, Hemoglobin 8.3L, Hematocrit 26.2L , Mean Corpuscular Volume 94, Mean Corpuscular Hemoglobin 29.6, Mean Corpuscular Hemoglobin Concent 31.6L, Red Cell Distribution Width 15.1H, Platelet Count 210, Mean Platelet Volume 7.9, Neutrophils (%) (Auto) 74.8, Lymphocytes (%) (Auto) 12.0L, Monocytes (%) (Auto) 8.3, Eosinophils (%) (Auto) 4.0H, Basophils (%) (Auto) 0.9, Sodium Level 140, Potassium Level 3.8, Chloride Level 106, Carbon Dioxide Level 20L, Anion Gap 14, Blood Urea Nitrogen 174H, Creatinine 6.7H, Estimat Glomerular Filtration Rate , Glucose Level 137H, Uric Acid 7.3H, Calcium Level 8.1L, Phosphorus Level 6.7H, Magnesium Level 4.5H, Total Bilirubin 0.2, Aspartate Amino Transf (AST/SGOT) 24, Alanine Aminotransferase (ALT/SGPT) 38, Alkaline Phosphatase 177H, Pro-B-Type Natriuretic Peptide 5194H, Total Protein 6.0L, Albumin 1.8L, Globulin 4.2, Albumin/Globulin Ratio 0.4L Height (Feet): 5 Height (Inches): 10.00 Weight (Pounds): 244 General Appearance: confused Neck: supple Krzysztof Schneider MD May 30, 2018 22:30
[2018-05-31] VITALS: BP 140/54
[2018-05-31] MEDS: HydrALAZINE 25mg tab GT SCH ×2 (00:03→06:02)
[2018-05-31] MEDS: NovoLOG Insulin Flexpen SUBQ SCH ×2 (00:05→06:04)
[2018-05-31 04:00] VITALS: BP 135/85
--- NOTE | 2018-05-31 07:16 | NUR ---
HAND-OFF: Report given to Ainsley Erickson RN.
--- NOTE | 2018-05-31 07:43 | NUR ---
NURSE NOTES: pt in bed with no sob nor in any form of distress noted. Breathing regular and unlabored. denies any pain at this time. Will continue to monitor
[2018-05-31 08:00] VITALS: BP 138/55
[2018-05-31] MEDS: Renvela 800mg Pkt NG SCH (08:11)
[2018-05-31] MEDS: levETIRAcetam 500mg/5ml Liquid GT SCH (08:11)
[2018-05-31 08:22] VITALS: BP 138/55
[2018-05-31] MEDS: Metoprolol 25mg tab GT SCH (08:22)
[2018-05-31] MEDS: D5 1/2NS 1,000 ML IV SCH (08:30)
[2018-05-31] MEDS ORDERED: Aspirin Baby 81mg GT SCH (09:00)
[2018-05-31] MEDS ORDERED: Fluconazole 100mg tab GT SCH (09:00)
--- NOTE | 2018-05-31 09:14 | NUR ---
*-* DISCHARGE PLANNING PATIENT HAS BEEN REFERRED BACK TO: [facility] P: [phone] F:[phone]
--- NOTE | 2018-05-31 10:07 | NUR ---
CASE MANAGEMENT: REVIEW SI: ALOC . MARK . CKD T 98.3 HR 58 RR 18 BP 138/55 SAT 98% ROOM AIR IS: LOPRESSOR GT Q12HR ISOSORBIDE GT Q8HR SEVELAMER GT TID NITRO PATCH Q24HR ASA GT QD HYDRALAZINE GT Q6HR STEP DOWN UNIT STATUS DCP: PATIENT IS FROM [facility]. DC TO SNF WITH HOSPICE
--- NOTE | 2018-05-31 10:39 | NUR ---
*-* DISCHARGE PLANNING PATIENT HAS BEEN REFERRED [facility] P:[phone] F:[phone] SPOKE WITH LALY AT [facility] SHE GAVE US A ROOM# 125-A AT [facility] AND ALSO STATED SHE WILL SET UP TRANSPORTATION. SHE WILL CALL ONCE SHE RECEIVES CLINICALS FAXED AND WILL GIVE US TRANSPORTATION INFORMATION.
--- NOTE | 2018-05-31 10:49 | NUR ---
*-* DISCHARGED PLANNED PATIENT IS DISCHARGED BACK TO: [facility] ROOM# 125-A SKILLED T:[phone] FOR NURSE TO NURSE REPORT [facility] HAS BEEN ARRANGED FOR PROCUREMENT ACCOUNTANT AT [address] [facility] WILL SEE PT AT [facility] SPOKE WITH LALY AT [facility].
[2018-05-31] MEDS ORDERED: Nitroglycerin Patch 0.4mg TDERMAL SCH (12:00)
[2018-05-31] MEDS ORDERED: D5 1/2NS 1000ml IV ONE (12:19)
--- NOTE | 2018-05-31 12:20 | NUR ---
NURSE NOTES: pt discharged to N with hospice picked up by ambulance with stable condition. Call attempted to granddaughter but unable to reach. all discharge instruction report given to nurse Costa and verbalized understanding. iv heplock removed, clamped Gt. pt can go with f/c per dr. trinh. denies any pain, vss.
--- NOTE | 2018-05-31 13:20 | General Progress Note ---
Assessment/Plan Assessment/Plan Assessment and Recommendations: # Anemia due to underlying chronic medical issues, multifactorial --> Anemia w/u has been ordered --> No evidence of hemolysis is noted, peripheral smear has been ordered. --> hgb goal >7. Transfuse prn. --> Epogen and iron started # Leukocytosis with Pyuria, likely due to uti --> patient on cefepime. will follow up the culture. --> appreciate Nephrology consult # Decrease in O2 saturation, --> congestion in chest x-ray, cannot rule out any early pneumonia. # End-stage renal disease -- DNR DNI and CrCl 8 - No dialysis was entertained due to underlying debility and code status --> currently DNR. Dr. Ortiz is following. -->Not getting dialysis at this point -->awaiting for family to decide re HD -->Family agreed to hospice & comfort care # Bradycardia. --> requiring atropine injection. -->The patient is off sinus or AV miguel angel blocking agents --> Currently in sinus rhythm. # Hypertension --> on Norvasc 5 mg per G-tube daily and p.r.n.hydralazine. # Dysphagia, status post PEG placement. # History of pleural effusion, status post thoracentesis. # Right femoral pseudoaneurysm, status post thrombin injection. # Advanced dementia. # Penicillin allergy. The timing of this note does not necessarily reflect the time of the patient was seen Greatly appreciate consultation! Subjective Gastrointestinal/Abdominal: Denies: no symptoms, abdomen distended, abdominal pain, black stools, tarry stools, blood in stool, constipated, diarrhea, difficulty swallowing, nausea, poor appetite, poor fluid intake, rectal bleeding , vomiting, other Neurologic/Psychiatric: Denies: no symptoms, anxiety, depressed, emotional problems, headache, numbness, paresthesia, pre-existing deficit, seizure, tingling, tremors, weakness, other Endocrine: Denies: no symptoms, excessive sweating, flushing, intolerance to cold, intolerance to heat, increased hunger, increased thirst, increased urine, unexplained weight gain, unexplained weight loss, other Allergies: Coded Allergies: PENICILLINS (Unverified Allergy, Mild, 04/20/18) 04/20/18- Patient has been on pip-tazo for this admission since 04/15/18 as well as previous admission. Pt has Penicillin allergy on profile-unknown reactions. Mirza Gallo and Belgica Padillaan aware of allergy and are okay with continuing with pip-tazo. No reactions noted Subjective 05/30: Pt is awake and comfortable, No dialysis was entertained due to underlying debility and code status, Family agreed to hospice & comfort care 05/31: stable for dc, to leave today on hospice Objective Last 24 Hour Vital Signs Date Time Temp Pulse Resp B/P (MAP) Pulse Ox O2 Delivery O2 Flow Rate FiO2 05/31/18 08:22 64 138/55 05/31/18 08:22 64 138/55 05/31/18 08:16 Room Air 05/31/18 08:00 98.3 64 18 138/55 (82) 98 05/31/18 07:53 62 16 Room Air 21 05/31/18 06:02 135/85 05/31/18 06:02 135/85 05/31/18 04:00 98.4 58 18 135/85 (102) 98 05/31/18 00:03 140/54 05/31/18 00:00 97.8 58 20 140/54 (82) 95 05/30/18 21:12 156/88 05/30/18 21:11 65 156/88 05/30/18 21:00 Room Air 05/30/18 20:00 64 20 Room Air 21 05/30/18 20:00 97.5 65 20 156/88 (110) 94 05/30/18 17:14 132/55 05/30/18 16:00 Room Air 05/30/18 16:00 47 05/30/18 16:00 98.7 65 20 132/55 (80) 95 05/30/18 13:45 118/60 Intake and Output 05/30/18 05/31/18 18:59 06:59 Intake Total 1010 ml 1120 ml Output Total 50 ml Balance 960 ml 1120 ml Free Water 150 ml 150 ml IV Total 500 ml 610 ml Tube Feeding 360 ml 360 ml Output Urine Total 50 ml # Voids 100 # Bowel Movements 3 1 Height (Feet): 5 Height (Inches): 10.00 Weight (Pounds): 244 General Appearance: alert EENT: TMs normal Cardiovascular: normal rate Abdomen: no mass Extremities: non-tender Edema: mild edema Neurologic: alert Kleynberg,Aleksandr L. MD May 31, 2018 13:20
--- NOTE | 2018-06-01 12:58 | Discharge Summary ---
Discharge Summary Discharge Summary _ DATE OF ADMISSION: 05/27/2018 DATE OF DISCHARGE: 05/31/2018 DISCHARGED BY: Dr. Krzysztof Prabhakar CONSULTANTS: Dr. Aleksandr Park BRIEF HOSPITAL COURSE: Patient is an 82-year-old female, brought in from [facility] due to diminished oxygen saturation and altered mental status. She has history of atrial fibrillation and was noted to be bradycardic by EMS. She was given atropine in the field with improvement of heart rate. She will was noted to be continually altered. She was started on supplemental oxygen via nonrebreather mask. On evaluation at the ED, blood work did not show any leukocytosis. Hemoglobin was 9.5, hematocrit 30. Potassium was elevated to 5.7. BUN was 185, creatinine was elevated to 6.6. Troponin was 0.232. Urinalysis showed 4+ protein, 1+ ketones, 4+ blood, 3+ leukocyte esterase, too many to count WBC, 10- 15 RBC. EKG showed irregular bradycardic rhythm. He was started on IV hydration. She was given Kayexalate and calcium chloride. She was started on levofloxacin. She was then admitted for evaluation of encephalopathy, sepsis, renal failure and UTI. Supervisor Coke Handling was consulted. Patient had a recent admission where a 24-hour urine creatinine clearance sure it was 8. Patient was DNR and DNI. No plans for dialysis were entertained due to underlying debility and CODE STATUS. Kidney function was monitored. She was given IV hydration. ID was consulted. Patient has pyuria. She was started on cefepime. Group Fitness Assistant Department Head was consulted. Patient had bradycardia status post atropine injection by EMS. She was admitted to telemetry and telemetry strips showed sinus rhythm in the 60s. There was elevated troponin level, nonspecific, likely due to renal failure. Air Hammer Stripper was consulted for evaluation of anemia. Anemia workup done showed anemia due to underlying chronic medical condition which is multifactorial. She was given IV iron. Patient was noted to have unstageable sacral ulcer upon admission. Surgical evaluation was done. Wound care was rendered. He was placed on air-fluidized mattress, with frequent repositioning and offloading. Urne ulture showed growth of Ling. Blood culture did not isolate any growth. Antibiotic was switched to Diflucan. DPOA wants comfort care. Patient has poor prognosis. She was eventually discharged back to [facility] with hospice. FINAL DIAGNOSES: Acute encephalopathy Acute on chronic renal failure Chronic kidney disease Candidal Urinary tract infection Unstageable decubitus ulcer of the sacral region, present on admission Diabetes type 2 with diabetic nephropathy Hypertension Anemia due to underlying chronic medical conditions Paroxysmal atrial fibrillation Dysphagia, status post PEG placement Advanced dementia Right femoral pseudoaneurysm, status post thrombin injection History of pleural effusion, status post thoracentesis Elevated troponin due to troponin leak secondary to renal failure DNR/DNI Comfort care/hospice care DISPOSITION: Patient was discharged to a SNF. DISCHARGE MEDICATIONS: Refer to Discharge Medication List. I have been assigned to dictate discharge summary on this account, and I was not involved in the patient's management. Ines Riley NP Jun 01, 2018 12:58
== END 2018-05-31 12:20 | DRG 682 ==
LOC: EDBD 15:03 → EMR 15:55 → 2W 15:58 → EDBEDREQ 21:52 → 2W 05-30 06:47 → 4E 05-30 17:38
DX: N17.9 Acute kidney failure, unspecified (principal); G93.41 Metabolic encephalopathy; Z43.1 Encounter for attention to gastrostomy; I13.11 Hypertensive heart and chronic kidney disease without heart failure, with stage 5 chronic kidney disease, or end stage renal disease; B37.49 Other urogenital candidiasis; I48.0 Paroxysmal atrial fibrillation; E11.22 Type 2 diabetes mellitus with diabetic chronic kidney disease; E11.21 Type 2 diabetes mellitus with diabetic nephropathy; I72.4 Aneurysm of artery of lower extremity; R13.10 Dysphagia, unspecified; F03.90 Unspecified dementia, unspecified severity, without behavioral disturbance, psychotic disturbance, mood disturbance, and anxiety; Z66 Do not resuscitate; Z88.0 Allergy status to penicillin; Z79.4 Long term (current) use of insulin; L89.150 Pressure ulcer of sacral region, unstageable; D63.8 Anemia in other chronic diseases classified elsewhere; N18.6 End stage renal disease; I49.8 Other specified cardiac arrhythmias; D64.9 Anemia, unspecified; Z51.5 Encounter for palliative care
CPT/HCPCS: 36415; 36600; 71045; 80053; 80061; 81003; 82550; 82553; 82607; 82728; 82746; 82803; 82962; 82977; 83036; 83540; 83550; 83605; 83735; 83880; 84100; 84443; 84484; 84550; 85025; 86140; 87040; 87081; 87086; 93005; 93970; 94664; 96361; 96365; 96375; 99285; J1815